=== PATIENT | female | born 1995 | race Caucasian/White ===

== ENCOUNTER → 2019-05-20 14:59 | Emergency (ER) | payer SELFPAY ==
[2019-05-20 15:01] VITALS: BP 114/74; PULSE 83; RESP 17; TEMP 36.6; O2SAT 99; BMI 25.7
--- NOTE | 2019-05-20 15:20 | ED.RN ---
pt left without being seen
== END ==
DX: R69 Illness, unspecified (principal); Z53.21 Procedure and treatment not carried out due to patient leaving prior to being seen by health care provider

== ENCOUNTER 2023-07-17 06:10 | Day surgery (SDC) | payer MEDICARE, SELFPAY ==
[2023-07-17] VITALS (11 sets, daily range): BP systolic 96–121; BP diastolic 61–82; PULSE 60–87; RESP 14–18; TEMP 36.1–36.4; O2SAT 95–100; BMI 28.8
[2023-07-17] MEDS: Lactated Ringers 1,000 ML 15 ML IV (07:02)
[2023-07-17 07:10] LABS: Internal QC Validated? YES +Cl - CLEAR BKGD; Pregnancy, Urine Negative Negative
[2023-07-17] MEDS: Ciprofloxacin 400 MG/200 ML BAG 200 MG IV (07:53)
--- NOTE | 2023-07-17 07:57 | DCINST_ITS ---
Discharge Instructions Diet Discharge Diet: No restrictions Activity Discharge Activity: Return to Normal Activity Dressing / Incision Call your doctor if you observe: Fever of 101 or Higher, Inability to urinate and Inability to have a bowel movement Follow Up Care Please Follow Up With: Antoinette Pettit MD When: The office will call the patient to make follow-up arrangements. Test Results: Test results from this visit will be discussed in further detail at your follow- up appointment, if applicable. Discharge Plan Admission Attending Provider: Antoinette Pettit Primary Care Provider: Tavo Olivera Discharge Orders/Prescriptions Prescriptions: New sulfamethoxazole-trimethoprim [sulfamethoxazole-trimethoprim] 800-160 mg tablet 1 tab PO BID 3 Days Qty: 6 0RF oxycodone-acetaminophen [Percocet] 5-325 mg tablet 1 tab PO Q8H PRN (Reason: pain) 3 Days Qty: 10 0RF Continued vit,[id number] 1 TABLET tablet 1 tab PO DAILY Gemtesa 75 mg tablet 75 mg PO DAILY ferrous sulfate [FeroSul] 325 mg (65 mg iron) tablet 325 mg PO DAILY Patient Comments: take 1 tablet by mouth twice a day albuterol 90 mcg/actuation aerosol 90 mcg inhalation PRN PRN (Reason: shortness of breath or wheezing) ibuprofen [Advil] 200 mg tablet 200 mg PO Q8H PRN (Reason: pain) Referrals / Follow Up: Tavo Olivera DO [Primary Care Provider] - Disposition Disposition (needs filled in before D/C Order can be placed): Home, Self Care
--- NOTE | 2023-07-17 07:58 | PCM.OPRPT ---
Report of Operation Date of Procedure: 07/17/23 Pre-Operative Diagnosis: Interstitial cystitis, urinary urgency and frequency, pelvic pain Post-Operative Diagnosis: Same Surgery/Procedure Performed:: Cystoscopy, hydrodistention, pelvic exam anesthesia Description of Surgical Findings:: Positive glomerulations, terminal hematuria, capacity 200 cc without distention, followed by 300 cc after distention. No Hunner's ulcerations. Surgeon: Antoinette Pettit Type of Anesthesia: MAC Description of Procedure: The patient is a 28-year-old female with a history of interstitial cystitis. Her symptoms have been uncontrolled and she is voiding over 50 times a day with significant bladder pain. The decision was made to proceed with evaluation under anesthesia. Informed consent was obtained. The patient was taken to the operating room and placed on the operating room table. Anesthesia monitored the head, neck, airway, IV access and vital signs throughout the case. Once anesthesia was appropriately administered, the patient was placed into dorsolithotomy position was prepped and draped in usual sterile fashion. The cystoscope was inserted through the urethra and direct visualization into the urinary bladder. The bladder mucosa was visualized in its entirety revealing no evidence of Hunner ulcerations, mass or erythema. Her bladder was then filled to capacity and allowed to sit for 2 minutes. On emptying, her capacity was measured at 200 cc and there was terminal hematuria identified. On reentry into the urinary bladder there were multiple diffuse glomerulations identified. Her bladder was once again filled to capacity and allowed to sit for 2 minutes. On emptying, it was measured at 300 cc capacity. The patient's bladder was then emptied and the cystoscope was removed. The pelvic floor was evaluated with examination and finding no evidence of trigger points. The patient was then awakened and taken to the recovery room in good condition. There were no complications during this procedure. Grafts/Implants Used: None Complications None Admit VTE Documentation VTE Present on Admission: Yes VTE Mechan Device Prophylaxis: SCD's VTE Pharm Prophylaxis ordered?: No Reason prophylaxis not ordered:: Treatment Not Indicated
== END 2023-07-17 09:59 | disposition home or self-care (01) ==
LOC: SDC 07:44 → AC 07:44
PROVIDERS: Anesthesiology; PCP Family Medicine; Referring Provider Urology; Visit Provider Urology
PROC: 0TBB8ZX Excision of Bladder, Via Natural or Artificial Opening Endoscopic, Diagnostic (ICD-10-PCS; CPT 52260; principal; 2023-07-17 07:20)
DX: N30.10 Interstitial cystitis (chronic) without hematuria (principal); R39.15 Urgency of urination; R35.0 Frequency of micturition; R10.2 Pelvic and perineal pain; J45.909 Unspecified asthma, uncomplicated; D64.9 Anemia, unspecified; Z79.51 Long term (current) use of inhaled steroids
CPT/HCPCS: 52260; 57410; 00910; J7120; 81025; J0744; J2405

== ENCOUNTER 2024-01-08 05:59 | Day surgery (SDC) | payer MEDICARE, SELFPAY ==
[2024-01-08] VITALS (8 sets, daily range): BP systolic 97–110; BP diastolic 56–74; PULSE 61–72; RESP 16; TEMP 36.2–36.6; O2SAT 94–99; BMI 27.7
[2024-01-08 06:21] LABS: Internal QC Validated? YES +Cl - CLEAR BKGD; Pregnancy, Urine Negative Negative
[2024-01-08] MEDS: Lactated Ringers 1,000 ML 15 ML IV (06:36)
[2024-01-08] MEDS: Ciprofloxacin 400 MG/200 ML BAG 200 MG IV (06:37)
--- NOTE | 2024-01-08 07:12 | PCM.PRE.AN2 ---
ASA Classification* ASA Classification ASA Classification: 2 Assessment & Plan Anesthesia* Anesthesia Assessment Anesthesia Assessment: Discussed sedation and/or anesthesia options, risks, benefits, and alternatives with patient/parents/legal guardian/POA. Questions invited. The patient/parents/legal guardian/POA seems to understand and agrees to proceed with anesthesia plan. Reviewed the physical assessment, medical history, allergy history and patient home medications list prior to surgery/procedure/anesthetic and documented any changes. Performed airway and anesthesia risk assessments. Anesthesia Type Anesthesia Type: MAC (see written pre anesthesia record for full assessment) Anesthesia Focused Assessment* Temperature: 97.8 F Pulse Rate: 72 Blood Pressure: 110/74 Respiratory Rate: 16 Pulse Ox: 99 Airway Assessment Mouth opens: >3 cm Mallampati Score: II Focused Labs Anesthesia Preop lab: CBC CHEMISTRY COAG Urine Test Negative Negative 01/08/24 06:15 Pre-Assessment Diagnosis/Proposed Procedure Planned Operative Procedure(s): CYSTO BOTOX INJECTION Anesthesia History Anesthesia History - independent crop consultant: Anesthesia History - independent crop consultant Hx Hospitalization No 01/07/24 08:28 Any Problems With Anesthesia No 01/07/24 08:28 Cholinesterase deficiency No 01/07/24 08:28 You/Your Family Experience No 01/07/24 08:28 fever (hyperthermia) with Relationship Recent Exposure to Contagious No 01/08/24 06:27 Disease Does patient have nerve No 01/07/24 08:28 stimulator Patient instructed to have device shut off --Does patient have Pacemaker No 01/08/24 06:27 or ICD? When Was Last Pacemaker Check QUESTION #4 FULL TEXT: You/Your Family Experience fever (hyperthermia) with Anesthesia Last Oral Intake Last Oral intake: Last Oral Intake NPO since 21:30 01/08/24 06:27 Meds taken in AM with sips of No 01/08/24 06:27 water? Meds patient instructed to take am of surgery PONV PONV - independent crop consultant: PONV - independent crop consultant Female Yes 01/07/24 08:28 HX of Motion Sickness No 01/07/24 08:28 HX of N/V After Surgery No 01/07/24 08:28 Non-Smoker Yes 01/07/24 08:28 Duration of Surgery greater No 01/07/24 08:28 than 60 minutes Number of Risk Factors 2 01/07/24 08:28 PONV Score Moderate Risk 01/07/24 08:28 Height & Weight Height & Weight: Anesthesia: Height & Weight Height 5 ft 3 in 01/08/24 06:27 Weight: 71 kg 01/08/24 06:27 Body Mass Index (BMI) 27.7 01/08/24 06:27 Respiratory Assessment Respiratory Assessment - independent crop consultant: Respiratory Tract Infection Hx - independent crop consultant Hx Respiratory Tract Infection No 01/07/24 08:28 STOP Sleep Apnea STOP Sleep Apnea - independent crop consultant: STOP Sleep Apnea - independent crop consultant Hx Hypertension No 01/07/24 08:28 Hx Sleep Apnea No 01/07/24 08:28 CPAP BIPAP Do you snore loudly (louder No 01/07/24 08:28 than talking or can be heard Do you often feel tired/ Yes 01/07/24 08:28 fatigued/ sleepy during daytime? Has anyone observed you stop No 01/07/24 08:28 breathing during sleep? STOP Results Negative 01/07/24 08:28 QUESTION #5 FULL TEXT : Do you snore loudly (louder than talking or can be heard through closed doors)? Tobacco Use History Tobacco Use History - independent crop consultant: Tobacco Use History - independent crop consultant Tobacco Use Smoking Status Never smoker 01/07/24 08:28 Hx Tobacco Use No 01/07/24 08:28 Years Smoking Packs Smoked per Day Smoking Cessation Date was within the last 15 years Hx Smoking Cessation Date Hx Smoking Cessation Counseling Hematologic Medial History Hematologic Hx - independent crop consultant: Hematologic Medical Hx - flue lining dipper Hx of Blood Transfusion No 01/07/24 08:28 Hx of Transfusion in last 3 No 01/07/24 08:28 Months Date of Last Transfusion (if within last 3 months) Ever experience any problems No 01/07/24 08:28 with transfusion(s)? Specify any problems Hx of Preganancy in last 3 No 01/07/24 08:28 Months Nurse Filling Out Transfusion DSCHRIBER 01/07/24 08:28 & Questions: Date: 01/07/24 01/07/24 08:28 Time: 08:29 01/07/24 08:28 Patient unable to answer at this time (ie. confused, unrespo /Reproduction History /Reproductive History - independent crop consultant: /Reproductive Hx- independent crop consultant Hx Now Gestational Age (in weeks): EDC: Hx Hx Para Hx Section SAB No 01/07/24 08:28 Active Medications Active Medications: Current Medications Generic Name Dose Route Start Last Admin Trade Name Freq PRN Reason Stop Dose Admin Botulinum Toxin Type A 100 units 01/08/24 07:30 Botulinum Toxin A 100 Units Vial IJ 01/08/24 07:31 X1 ONE Ciprofloxacin 400 mg in 200 mls @ 200 mls/hr 01/08/24 07:30 01/08/24 06:37 Cipro IV 01/08/24 08:29 200 mls/hr PREOP ONE Administration Lactated Ringer's 1,000 mls @ 15 mls/hr 01/08/24 06:15 01/08/24 06:36 IV 15 mls/hr .Q48H SUNIL Administration PFSH Medical History Interstitial cystitis Wears glasses Depression Anxiety Anemia Restless legs Asthma Non-smoker Home Medications ?Medication ?Instructions ?Recorded ?Last Taken ?Type albuterol 90 mcg/actuation aerosol 90 mcg inhalation PRN PRN 07/16/23 Unknown History inhaler shortness of breath or wheezing ferrous sulfate 325 mg (65 mg 325 mg PO DAILY 07/16/23 01/07/24 History iron) tablet (FeroSul) ibuprofen 200 mg tablet (Advil) 200 mg PO Q8H PRN pain 07/17/23 07/16/23 20:00 History Allergy/AdvReac Type Severity Reaction Status Date / Time Penicillins Allergy Intermediate Angioedema Verified 01/07/24 08:26 Surgical History History of cystoscopy Hx of wisdom tooth extraction Hx laparoscopic cholecystectomy Hx of laparoscopy History of dilation and curettage History of Social History Smoking Status: Never smoker Review of Systems (Anesthesia) ROS Narrative System reviewed and no additional complaints, except as documented.
[2024-01-08] MEDS: 0.9% Normal Saline (Pres. free 10 ML Vial (07:55)
[2024-01-08] MEDS: Botulinum Toxin A 100 Units Vial IJ (07:55)
--- NOTE | 2024-01-08 08:03 | DCINST_ITS ---
Discharge Instructions Diet Discharge Diet: No restrictions Activity Discharge Activity: Return to Normal Activity Dressing / Incision Call your doctor if you observe: Fever of 101 or Higher, Inability to urinate and Inability to have a bowel movement Additional Dressing/Incision Instructions:: Call if the urine is the consistency of tomato juice or passing multiple blood clots in the urine Follow Up Care Please Follow Up With: Antoinette Pettit MD When: The office will call to set up follow-up next week. Test Results: Test results from this visit will be discussed in further detail at your follow- up appointment, if applicable. Discharge Plan Admission Attending Provider: Antoinette Pettit Primary Care Provider: Tavo Olivera Instructions Print Language: Dominican Discharge Orders/Prescriptions Prescriptions: New sulfamethoxazole-trimethoprim 800-160 mg tablet 1 tab PO BID 3 Days Qty: 6 0RF Continued ferrous sulfate [FeroSul] 325 mg (65 mg iron) tablet 325 mg PO DAILY Patient Comments: take 1 tablet by mouth twice a day albuterol 90 mcg/actuation aerosol 90 mcg inhalation PRN PRN (Reason: shortness of breath or wheezing) ibuprofen [Advil] 200 mg tablet 200 mg PO Q8H PRN (Reason: pain) Other Ambulatory Orders: ,Urine (Routine) Timeframe: 20240108 Facility: [facility] - Location: Laboratory Ordered By: Dr. Christopher Jacobsen Referrals / Follow Up: Tavo Olivera DO [Primary Care Provider] - Disposition Disposition (needs filled in before D/C Order can be placed): Home, Self Care
--- NOTE | 2024-01-08 08:05 | PCM.OPRPT ---
Report of Operation Date of Procedure: 01/08/24 Pre-Operative Diagnosis: Overactive bladder Post-Operative Diagnosis: Same Surgery/Procedure Performed:: Cystoscopy with injection of Botox 100 units Surgeon: Antoinette Pettit Type of Anesthesia: MAC Specimen's removed: None Estimated Blood Loss (mL): <5cc Description of Procedure: The patient is a 28-year-old female with significant urgency and frequency of urination. She underwent trials of medications along with urodynamics testing in office cystoscopy. She is elected to proceed with Botox 100 unit injections at this time. Informed consent was obtained. The patient was taken to the operating room and placed on the operating room table. Anesthesia monitored the head, neck, airway, IV access and vital signs throughout the case. Once anesthesia was appropriately administered, she was placed into dorsolithotomy position was prepped and draped in usual sterile fashion. The cystoscope was inserted through the urethra under direct visualization into the urinary bladder which displayed significant injection. At this time 100 units of Botox mixed in 10 cc of injectable saline were injected and 0.5 cc increments throughout the urinary bladder in systematic fashion. At the conclusion of the injections, 1 last flush of 0.5 cc of normal saline was injected. The patient's bladder was then emptied and the cystoscope was removed. She was awakened and taken to the recovery room in good condition. There were no complications during this procedure. Grafts/Implants Used: None Complications None Admit VTE Documentation VTE Present on Admission: Yes VTE Mechan Device Prophylaxis: SCD's VTE Pharm Prophylaxis ordered?: No Reason prophylaxis not ordered:: Treatment Not Indicated
--- NOTE | 2024-01-08 08:07 | PCM.POST.ANE ---
Anesthesia: Postop Eval I Current Vital Signs Temperature: 97.3 F Pulse Rate: 63 Blood Pressure: 97/56 Respiratory Rate: 16 Pulse Ox: 94 Oxygen Delivery Method: Room Air Assessment Airway patent: Yes Spontaneous unlabored respirations: Yes Mental status: Awake nausea: No Vomiting: No Anesthesia Complication: No Fluid Hydration Crystalloid volume administer (ml): 400 Total IV fluid infused: 400 Progress Note Anesthesia document: Postop Eval 1 completed: Yes
--- NOTE | 2024-01-08 08:20 | POSTOPAN2_ITS ---
Anesthesia Postop Eval I Sum Postop Eval Completion status Anesthesia document: Postop Eval 1 completed: Yes Anesthesia Postop Eval I Summary Anesthesia Postop Eval I Summary: Anesthesia Postop Eval I: Assessment Summary Airway patent Yes 01/08/24 08:17 MOTOR [email or web address] Spontaneous unlabored Yes 01/08/24 08:17 MOTOR COACH [email or web address].[email or web address] respirations Mental status Awake 01/08/24 08:17 MOTOR [email or web address].[email or web address] nausea No 01/08/24 08:17 MOTOR [email or web address] DRIVER.[email or web address] Vomiting No 01/08/24 08:17 MOTOR [email or web address].[email or web address] Anesthesia Postop Eval I: Fluid Summary Crystalloid volume administer 400 01/08/24 08:17 MOTOR [email or web address].[email or web address] (ml) Colloids volume administered ( ml) Blood Product volume administered (ml) Total IV fluid infused 400 01/08/24 08:17 MOTOR COACH [email or web address].[email or web address] Anesthesia Postop Eval I: Summary Notes Anesthesia Complication No 01/08/24 08:17 MOTOR [email or web address].[email or web address] Anesthesia Complication Comment: Post-operative progress note Anesthesia: Postop Eval II Evaluation Mental status: Awake Pain Level: 0 nausea: No Vomiting: No
--- NOTE | 2024-01-08 08:20 | PCM.POSTANE2 ---
Anesthesia Postop Eval I Sum Postop Eval Completion status Anesthesia document: Postop Eval 1 completed: Yes Anesthesia Postop Eval I Summary Anesthesia Postop Eval I Summary: Anesthesia Postop Eval I: Assessment Summary Airway patent Yes 01/08/24 08:17 ORAL [email or web address] Spontaneous unlabored Yes 01/08/24 08:17 ORAL [email or web address] respirations Mental status Awake 01/08/24 08:17 ORAL [email or web address] nausea No 01/08/24 08:17 ORAL [email or web address].[email or web address] Vomiting No 01/08/24 08:17 ORAL [email or web address].[email or web address] Anesthesia Postop Eval I: Fluid Summary Crystalloid volume administer 400 01/08/24 08:17 ORAL [email or web address] (ml) Colloids volume administered ( ml) Blood Product volume administered (ml) Total IV fluid infused 400 01/08/24 08:17 ORAL [email or web address].[email or web address] Anesthesia Postop Eval I: Summary Notes Anesthesia Complication No 01/08/24 08:17 ORAL [email or web address] Anesthesia Complication Comment: Post-operative progress note Anesthesia: Postop Eval II Evaluation Mental status: Awake Pain Level: 0 nausea: No Vomiting: No
== END 2024-01-08 08:51 | disposition home or self-care (01) ==
LOC: SDC 06:00 → AC 06:01
PROVIDERS: Anesthesiology; PCP Family Medicine; Referring Provider Urology; Visit Provider Urology
PROC: 3E0K8GC Introduction of Other Therapeutic Substance into Genitourinary Tract, Via Natural or Artificial Opening Endoscopic (ICD-10-PCS; CPT 52287; principal; 2024-01-08 07:20)
DX: N32.81 Overactive bladder (principal); N39.41 Urge incontinence; R35.0 Frequency of micturition; J45.909 Unspecified asthma, uncomplicated; Z79.51 Long term (current) use of inhaled steroids
CPT/HCPCS: 52287; 00910; 81025; J7120; J0585; J0744; J2405; J3490

== ENCOUNTER 2024-02-20 15:00 | Outpatient (RCR) | payer MEDICARE, SELFPAY | END 2024-02-20 19:00 | disposition home or self-care (01) | LOC: PT 15:00 | PROVIDERS: PCP Family Medicine; Referring Provider Urology; Visit Provider Urology | DX: R32 Unspecified urinary incontinence (principal); R35.0 Frequency of micturition | CPT/HCPCS: 97162 ==

== ENCOUNTER 2024-03-11 09:41 | Day surgery (SDC) | payer MEDICARE, SELFPAY ==
[2024-03-11] VITALS (9 sets, daily range): BP systolic 103–113; BP diastolic 56–72; PULSE 60–71; RESP 16–18; TEMP 36.1–36.6; O2SAT 97–100; BMI 27.3
[2024-03-11 10:16] LABS: Internal QC Validated? YES +Cl - CLEAR BKGD; Pregnancy, Urine Negative Negative
[2024-03-11] MEDS: 0.9% Normal Saline (500mL Bag) 500 ML 15 ML IV (10:43)
[2024-03-11] MEDS: Vancomycin IV 1,000 MG/200 ML BAG 200 MG IV (10:43)
--- NOTE | 2024-03-11 10:55 | PCM.HP.STD ---
HPI - General HPI Narrative SELENE RAMIREZ, is a 28 F who presents for stage I trial of Axonics management for her urgency and frequency. Informed consent has been obtained. PFSH Medical History Frequency of micturition Urgency of micturition Interstitial cystitis Wears glasses Depression Anxiety Anemia Restless legs Asthma Non-smoker Home Medications ?Medication ?Instructions ?Recorded ?Last Taken ?Type albuterol 90 mcg/actuation aerosol 90 mcg inhalation PRN PRN 07/16/23 Unknown History inhaler shortness of breath or wheezing ibuprofen 200 mg tablet (Advil) 200 mg PO Q8H PRN pain 07/17/23 07/16/23 20:00 History phenazopyridine 95 mg tablet 95 mg PO QHS 03/05/24 Unknown History (URO-PAIN) Allergy/AdvReac Type Severity Reaction Status Date / Time famotidine Allergy Severe Itching Verified 03/11/24 10:22 Penicillins Allergy Intermediate Angioedema Verified 03/11/24 10:22 Surgical History Hx of surgical procedure Hx of cystoscopy History of cystoscopy Hx of wisdom tooth extraction Hx laparoscopic cholecystectomy Hx of laparoscopy History of dilation and curettage History of Social History Smoking Status: Never smoker ROS Constitutional Constitutional: Reports systems reviewed and no addt'l complaints, except as documented; Denies chills, fatigue, fever(s) or weakness Eyes Eyes: Reports systems reviewed and no addt'l complaints, except as documented ENT HEENT: Reports systems reviewed and no addt'l complaints, except as documented Cardiovascular Cardiovascular: Reports systems reviewed and no addt'l complaints, except as documented; Denies abdominal pain, chest pain, diaphoresis or dyspnea Respiratory/Chest Respiratory/Chest: Denies chest congestion or dyspnea Gastrointestinal Gastrointestinal: Denies abdominal pain, change in bowel habits, nausea or vomiting Genitourinary Genitourinary: Reports urinary frequency and urinary urgency Musculoskeletal Musculoskeletal: Reports systems reviewed and no addt'l complaints, except as documented Integumentary Integumentary: Reports systems reviewed and no addt'l complaints, except as documented Neurologic Neurologic: Reports systems reviewed and no addt'l complaints, except as documented Psychiatric Psychiatric: Reports systems reviewed and no addt'l complaints, except as documented Endocrine Endocrinology: Reports systems reviewed and no addt'l complaints, except as documented Hematologic/Lymphatic Hematologic/Lymphatic: Reports systems reviewed and no addt'l complaints, except as documented Allergic/Immunologic Allergic/Immunologic: Reports systems reviewed and no addt'l complaints, except as documented Vital Signs Vital Signs Vital Signs: 03/11/24 10:24 03/11/24 10:24 Temperature 98 F Temperature Source Temporal Pulse Rate 65 Respiratory Rate 16 Respiratory Pattern Normal Blood Pressure 113/72 Blood Pressure Mean 85 Blood Pressure Source Monitor Blood Pressure Position Semi-Fowlers Blood Pressure Location Left Arm Weight Weight: 70.2 kg Body Mass Index (BMI) 27.3 Physical Exam Const alert, oriented x3 and no apparent distress General Appearance: cooperative, comfortable and well kempt HEENT normocephalic, head/scalp atraumatic, hearing grossly normal bilaterally, external ears normal, external nose normal and moist oral mucous membranes Eyes General Eye: normal appearance of both eyes Neck supple General: normal visual inspection and trachea midline Lymph Lymphatic: no lymphedema noted Chest inspection of chest normal Resp normal respiratory effort, normal air movement and no retractions Cardio regular rate GI soft to palpation, non-tender and non-distended no CVA tenderness and external exam normal Back/Spine no CVA tenderness Extremity normal to inspection Skin no rashes or lesions noted, no wounds, no jaundice, no petechiae and no mottling Neuro oriented x3 and CN's II-XII intact bilaterally Psych mental status grossly normal and thought process normal Results Lab / Micro Data Labs: Laboratory Results - last 24 hr 03/11/24 10:05: Urine Test Negative Assessment & Plan Assessment/Plan (1) Urgency of micturition: (2) Frequency of micturition: PLAN: Plan Proceed with stage I Axonics trial as scheduled
--- NOTE | 2024-03-11 10:59 | DCINST_ITS ---
Discharge Instructions Diet Discharge Diet: No restrictions Activity Discharge Activity: May Not Shower May resume sexual activity in: 4 weeks Dressing / Incision Call your doctor if your incision/area has: Continuous Slow Oozing, Sudden Increased Bleeding, Increased Pain/ Swelling and Foul Smelling Discharge Call your doctor if you observe: Fever of 101 or Higher, Inability to urinate and Inability to have a bowel movement Suture Line Care: Avoid Pulling/Pushing and Avoid Pinching/Bending Change Dressing in: do not change dressing Remove Dressing in: do not remove dressing Cleanse incision/area with: Keep Dressing Clean & Dry Additional Dressing/Incision Instructions:: No exercise or strenuous activity Follow Up Care Please Follow Up With: Antoinette Pettit MD When: Next week with voiding diary Test Results: Test results from this visit will be discussed in further detail at your follow- up appointment, if applicable. Discharge Plan Admission Attending Provider: Antoinette Pettit Primary Care Provider: Tavo Olivera Instructions Print Language: Turkish Discharge Orders/Prescriptions Prescriptions: New sulfamethoxazole-trimethoprim 800-160 mg tablet 1 tab PO BID 3 Days Qty: 6 0RF oxycodone-acetaminophen [Percocet] 5-325 mg tablet 1 tab PO Q8H PRN (Reason: pain) 3 Days Qty: 10 0RF Continued albuterol 90 mcg/actuation aerosol 90 mcg inhalation PRN PRN (Reason: shortness of breath or wheezing) ibuprofen [Advil] 200 mg tablet 200 mg PO Q8H PRN (Reason: pain) phenazopyridine [URO-PAIN] 95 mg tablet 95 mg PO QHS Referrals / Follow Up: Tavo Olivera DO [Primary Care Provider] - Disposition Disposition (needs filled in before D/C Order can be placed): Home, Self Care
--- NOTE | 2024-03-11 11:03 | PCM.PRE.AN2 ---
ASA Classification* ASA Classification ASA Classification: 2 Assessment & Plan Anesthesia* Anesthesia Assessment Anesthesia Assessment: Discussed sedation and/or anesthesia options, risks, benefits, and alternatives with patient/parents/legal guardian/POA. Questions invited. The patient/parents/legal guardian/POA seems to understand and agrees to proceed with anesthesia plan. Reviewed the physical assessment, medical history, allergy history and patient home medications list prior to surgery/procedure/anesthetic and documented any changes. Performed airway and anesthesia risk assessments. 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 When Was Last Pacemaker Check QUESTION #4 FULL TEXT: You/Your Family Experience fever (hyperthermia) with Anesthesia Last Oral Intake Last Oral intake: Last Oral Intake NPO since 23:00 03/11/24 10:24 Meds taken in AM with sips of No 03/11/24 10:24 water? Meds patient instructed to take am of surgery PONV PONV - mincing machine operator: PONV - mincing machine operator Female Yes 03/05/24 10:10 HX of Motion Sickness No 03/05/24 10:10 HX of N/V After Surgery No 03/05/24 10:10 Non-Smoker Yes 03/05/24 10:10 Duration of Surgery greater No 03/05/24 10:10 than 60 minutes Number of Risk Factors 2 03/05/24 10:10 PONV Score Moderate Risk 03/05/24 10:10 Height & Weight Height & Weight: Anesthesia: Height & Weight Height 5 ft 3 in 03/11/24 10:24 Weight: 70.2 kg 03/11/24 10:24 Body Mass Index (BMI) 27.3 03/11/24 10:24 Respiratory Assessment Respiratory Assessment - mincing machine operator: Respiratory Tract Infection Hx - mincing machine operator Hx Respiratory Tract Infection No 03/05/24 10:27 STOP Sleep Apnea STOP Sleep Apnea - mincing machine operator: STOP Sleep Apnea - mincing machine operator Hx Hypertension No 03/05/24 10:27 Hx Sleep Apnea No 03/05/24 10:27 CPAP BIPAP Do you snore loudly (louder No 03/05/24 10:10 than talking or can be heard Do you often feel tired/ No 03/05/24 10:10 fatigued/ sleepy during daytime? Has anyone observed you stop No 03/05/24 10:10 breathing during sleep? STOP Results Negative 03/05/24 10:10 QUESTION #5 FULL TEXT : Do you snore loudly (louder than talking or can be heard through closed doors)? 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 Specify any problems Hx of Preganancy in last 3 No 03/05/24 10:10 Months Nurse Filling Out Transfusion VCHRISTIN 03/05/24 10:10 & Questions: Date: 03/05/24 03/05/24 10:10 Time: 10:11 03/05/24 10:10 Patient unable to answer at this time (ie. confused, unrespo /Reproduction History /Reproductive History - mincing machine operator: /Reproductive Hx- mincing machine operator Hx Now Gestational Age (in weeks): EDC: Hx Hx Para Hx Section SAB No 03/05/24 10:27 Active Medications Active Medications: Current Medications Generic Name Dose Route Start Last Admin Trade Name Freq PRN Reason Stop Dose Admin Sodium Chloride 500 mls @ 0 mls/hr 03/11/24 10:15 03/11/24 10:43 IV 15 mls/hr .Q0M SUNIL Administration KVO PFSH Medical History Frequency of micturition Urgency of micturition Interstitial cystitis Wears glasses Depression Anxiety Anemia Restless legs Asthma Non-smoker Home Medications ?Medication ?Instructions ?Recorded ?Last Taken ?Type albuterol 90 mcg/actuation aerosol 90 mcg inhalation PRN PRN 07/16/23 Unknown History inhaler shortness of breath or wheezing ibuprofen 200 mg tablet (Advil) 200 mg PO Q8H PRN pain 07/17/23 07/16/23 20:00 History phenazopyridine 95 mg tablet 95 mg PO QHS 03/05/24 Unknown History (URO-PAIN) oxycodone-acetaminophen 5 mg-325 1 tab PO Q8H PRN pain 3 days #10 03/11/24 Unknown Rx mg tablet (Percocet) tabs sulfamethoxazole 800 1 tab PO BID 3 days #6 TABLETS 03/11/24 Unknown Rx mg-trimethoprim 160 mg tablet Allergy/AdvReac Type Severity Reaction Status Date / Time famotidine Allergy Severe Itching Verified 03/11/24 10:22 Penicillins Allergy Intermediate Angioedema Verified 03/11/24 10:22 Surgical History Hx of surgical procedure Hx of cystoscopy History of cystoscopy Hx of wisdom tooth extraction Hx laparoscopic cholecystectomy Hx of laparoscopy History of dilation and curettage History of Social History Smoking Status: Never smoker Review of Systems (Anesthesia) ROS Narrative System reviewed and no additional complaints, except as documented.
--- NOTE | 2024-03-11 11:18 | RAD_ITS ---
STUDY: X-RAY sacrum and coccyx AP and lateral REASON FOR EXAM: Female, 28 years old. AXONICS STAGE 1 TECHNIQUE: 2 view(s) sacrum and coccyx were obtained. COMPARISON: No relevant prior comparison study available FINDINGS: 2 views of the pelvis were obtained intraoperatively on a C-arm for treatment. Images were obtained for documentation only. Fluoroscopy time: 15 seconds. Number of fluoroscopic images: 2. Radiation dose: 11.47 mGy RAD/Pelvis 1 or 2 Views IMPRESSION: Intraprocedural exam as described above. Electronically Signed: Francois Cruz MD at 14:06 EDT ,
[2024-03-11] MEDS: Lidocaine 1% /Epi 1:100 (20ml) 20 ML Vial (11:26)
--- NOTE | 2024-03-11 12:12 | OP.PCM_ITS ---
Operative Report (Standard) Operative Information Surgery/Procedure Performed: Axonics stage I trial Surgeon: Antoinette Pettit Date of Procedure: 03/11/24 Procedure Start Time: 11:26 Procedure Stop Time: 12:04 Pre-Operative Diagnosis: Urinary urgency and frequency Post-Operative Diagnosis: Same Select all DRAINS/GRAFTS/IMPLANTS that apply: Implanted device Implanted device details: Axonics lead and lead extension Type of Anesthesia: MAC Estimated Blood Loss: 5 cc Specimen collected: No Description of surgery: The patient is a 28-year-old female with severe urgency and frequency of urination who has failed conservative management and now presents for Axonics stage I. Informed consent was obtained. She was taken to the operating room and placed in a prone position on the operating room table. She was appropriately padded and secured to the table. Anesthesia monitored the head, neck, airway, IV access and vital signs throughout the case. Once anesthesia was appropriately ministered, she was prepped and draped in usual sterile fashion. Using fluoroscopic evaluation, her sacral anatomy was outlined on her skin. The area overlying the insertion site for the S3 foramen needle was infiltrated with lidocaine with epinephrine on her right side. The needle was then passed through the skin and through the S3 foramen as visualized and confirmed on fluoroscopy. With stimulation she had good kar response as well as toe flexion. The obturator of the needle was removed and a guidewire was passed. The dilating device was then passed into position and the obturator was removed. The lead was then passed into its appropriate position. All 4 leads were tested with good response of kar and toe flexion without ankle rotation. The tines were then deployed and the sheath was removed. She did have oozing identified at the lead insertion site at that time. Pressure was held and the oozing did stop. The pocket site was selected and infiltrated with local anesthetic. An incision was made with a knife and the area was cauterized for hemostatic control. The lead was tunneled from the insertion site to the pocket site with the tunneling device. Lead was then cleaned and inserted into the lead extension which was then tunneled to the contralateral side without difficulty. It was then secured to the skin using a suture and Steri-Strips. The skin incisions were closed using 3-0 interrupted Vicryl followed by 4-0 Mo nocryl subcuticular closure. Steri-Strips were placed on the lead insertion site and Dermabond was placed on the pocket site. The lead extension was then connected to the battery. A drain sponge was placed on the patient's skin. The lead extension was coiled around the battery and an OpSite was placed over all of this. Cloth tape was placed over top of the OpSite. The patient was then awakened and taken to the recovery room in good condition. There were no complications during this procedure. Surgical Findings: Good response on all 4 leads. The lead was inserted on the patient's right side. The pocket site is on her right side. Agency Sales Management Assistant interceptor operator: No Complications Complications: No Admit VTE Documentation VTE Present on Admission: No VTE Mechan Device Prophylaxis: None VTE Pharm Prophylaxis ordered?: No Reason prophylaxis not ordered: Treatment Not Indicated
--- NOTE | 2024-03-11 12:14 | PCM.POST.ANE ---
Anesthesia: Postop Eval I Current Vital Signs Temperature: 97.7 F Pulse Rate: 71 Blood Pressure: 105/56 Respiratory Rate: 16 Pulse Ox: 99 Oxygen Delivery Method: Room Air Assessment Airway patent: Yes Spontaneous unlabored respirations: Yes Mental status: Awake nausea: No Vomiting: No Anesthesia Complication: No Fluid Hydration Crystalloid volume administer (ml): 200 Total IV fluid infused: 200 Progress Note Anesthesia document: Postop Eval 1 completed: Yes
--- NOTE | 2024-03-11 12:20 | POSTOPAN2_ITS ---
Anesthesia Postop Eval I Sum Postop Eval Completion status Anesthesia document: Postop Eval 1 completed: Yes Anesthesia Postop Eval I Summary Anesthesia Postop Eval I Summary: Anesthesia Postop Eval I: Assessment Summary Airway patent Yes 03/11/24 12:15 DRUG ABUSE [email or web address] Spontaneous unlabored Yes 03/11/24 12:15 DRUG ABUSE COUNSELOR.JDEF respirations Mental status Awake 03/11/24 12:15 DRUG ABUSE COUNSELOR.JDEF nausea No 03/11/24 12:15 DRUG ABUSE COUNSELOR.JDEF Vomiting No 03/11/24 12:15 DRUG ABUSE COUNSELOR.JDEF Anesthesia Postop Eval I: Fluid Summary Crystalloid volume administer 200 03/11/24 12:15 DRUG ABUSE COUNSELOR.JDEF (ml) Colloids volume administered ( ml) Blood Product volume administered (ml) Total IV fluid infused 200 03/11/24 12:15 DRUG ABUSE COUNSELOR.JDEF Anesthesia Postop Eval I: Summary Notes Anesthesia Complication No 03/11/24 12:15 DRUG ABUSE COUNSELOR.JDEF Anesthesia Complication Comment: Post-operative progress note Anesthesia: Postop Eval II Evaluation Mental status: Awake Pain Level: 0 nausea: No Vomiting: No
--- NOTE | 2024-03-11 12:20 | PCM.POSTANE2 ---
Anesthesia Postop Eval I Sum Postop Eval Completion status Anesthesia document: Postop Eval 1 completed: Yes Anesthesia Postop Eval I Summary Anesthesia Postop Eval I Summary: Anesthesia Postop Eval I: Assessment Summary Airway patent Yes 03/11/24 12:15 ASSOCIATE PROFESSOR OF MANAGEMENT.[email or web address] Spontaneous unlabored Yes 03/11/24 12:15 ASSOCIATE PROFESSOR OF MANAGEMENT.JDEF respirations Mental status Awake 03/11/24 12:15 ASSOCIATE PROFESSOR OF MANAGEMENT.JDEF nausea No 03/11/24 12:15 ASSOCIATE PROFESSOR OF MANAGEMENT.JDEF Vomiting No 03/11/24 12:15 ASSOCIATE PROFESSOR OF MANAGEMENT.JDEF Anesthesia Postop Eval I: Fluid Summary Crystalloid volume administer 200 03/11/24 12:15 ASSOCIATE PROFESSOR OF MANAGEMENT.JDEF (ml) Colloids volume administered ( ml) Blood Product volume administered (ml) Total IV fluid infused 200 03/11/24 12:15 ASSOCIATE PROFESSOR OF MANAGEMENT.JDEF Anesthesia Postop Eval I: Summary Notes Anesthesia Complication No 03/11/24 12:15 ASSOCIATE PROFESSOR OF MANAGEMENT.JDEF Anesthesia Complication Comment: Post-operative progress note Anesthesia: Postop Eval II Evaluation Mental status: Awake Pain Level: 0 nausea: No Vomiting: No
== END 2024-03-11 14:47 | disposition home or self-care (01) ==
LOC: SDC 09:43 → AC 09:46
PROVIDERS: PCP Family Medicine; Referring Provider Urology; Visit Provider Urology
PROC: (CPT 64561; principal; 2024-03-11 11:00)
DX: R35.0 Frequency of micturition (principal); R39.15 Urgency of urination; J45.909 Unspecified asthma, uncomplicated; Z79.51 Long term (current) use of inhaled steroids
CPT/HCPCS: 64561; 00300; 72170; 76000; 81025; J7040

== ENCOUNTER 2024-03-25 08:31 | Day surgery (SDC) | payer MEDICARE, SELFPAY ==
[2024-03-25] VITALS (10 sets, daily range): BP systolic 82–110; BP diastolic 43–80; PULSE 63–75; RESP 16–18; TEMP 36.4–37.1; O2SAT 94–100; BMI 27.6
[2024-03-25] MEDS: Vancomycin IV 1,000 MG/200 ML BAG 200 MG IV (09:03)
[2024-03-25 09:08] LABS: Internal QC Validated? YES +Cl - CLEAR BKGD; Pregnancy, Urine Negative Negative
[2024-03-25] MEDS: DiphenhydrAMINE 50 MG/ML Syringe 25 MG IV (10:14)
[2024-03-25] MEDS: Clindamycin 900 MG/50 ML BAG 75 MG IV (10:20)
[2024-03-25] MEDS: Lidocaine 1% /Epi 1:100 (20ml) 20 ML Vial (10:49)
== END 2024-03-25 13:50 | disposition home or self-care (01) ==
LOC: SDC 08:32 → AC 08:33
PROVIDERS: PCP Family Medicine; Referring Provider Urology; Visit Provider Urology
PROC: (CPT 64590; principal; 2024-03-25 10:00)
DX: R35.0 Frequency of micturition (principal); R39.15 Urgency of urination; R35.1 Nocturia; J45.909 Unspecified asthma, uncomplicated; Z79.51 Long term (current) use of inhaled steroids
CPT/HCPCS: 64590; 00300; 81025; A4216; J2405

== ENCOUNTER 2025-01-05 14:13 | Emergency (ER) | payer MEDICARE, SELFPAY ==
[2025-01-05 14:14] VITALS: BP 105/82; PULSE 67; RESP 16; TEMP 36.4; O2SAT 98; BMI 25.7
--- NOTE | 2025-01-05 14:17 | EKG12_ITS ---
Test Reason : Blood Pressure : */* mmHG Vent. Rate : 68 BPM Atrial Rate : 71 BPM P-R Int : 140 ms QRS Dur : 82 ms QT Int : 404 ms P-R-T Axes : 59 88 73 degrees QTcB Int : 429 ms Normal sinus rhythm Normal ECG Confirmed by ALEXANDRE RODRIGES, CHARLEY ([id number]), social media editor LUIS LI ([id number]) on 01/06/2025 1:34:37 PM Referred By: Confirmed By: CHARLEY SCHROEDER MD
[2025-01-05 14:32] LABS: Mucous, Urine 0 SEEN /hpf (<or=2+)
[2025-01-05 14:43] LABS: Internal QC Validated? YES +Cl - CLEAR BKGD
[2025-01-05 14:45] LABS: Pregnancy, Urine Negative Negative; Record Kit Lot#,Urine Preg 962302
[2025-01-05 14:53] LABS: Color, Urine Red (Yellow); Glucose, Dipstick Normal (Normal); Ketone-Dipstick Negative (Negative); Leukocyte Esterase-Dipstick 100 /ul (Negative); Nitrite-Dipstick Negative (Negative); Occult Blood-Urine 250 /ul (Negative); Protein-Dipstick 100 mg/dl (Negative); Specific Gravity, Urine 1.020 (1.002-1.030); Urine Bilirubin Dipstick Negative (Negative)
--- NOTE | 2025-01-05 14:54 | EDS_ITS ---
HPI History of Present Illness Chief Complaint: Chest Pain Detail of Chief Complaint: Chest pain Informant: patient Narrative Narrative: Patient presents to the emergency department with complaint of chest pain that started around 8 AM this morning. Patient describes an achy sensation in her left chest and a throbbing that radiates at times to her left shoulder. She denies nausea or vomiting. Currently rates her pain a 3 out of 10. She states that a week ago had similar discomfort and was seen at a different hospital at [facility] for this. She was told she had a junctional rhythm at that time. Patient denies recent travel or surgery. No history of PE or DVT. Patient has no heart history. She also states she has been having bleeding from her vagina but is not sure if it is coming from her vagina or her bladder. She has history of interstitial cystitis. She was seen by her urologist today who referred her to the emergency department. Patient states that she has incontinence was hard to tell if the blood is coming from her vagina or urine. She normally wears a adult diaper. She states in the last 2 months her bleeding is stopped for 2 days. She denies fevers or chills or sweats. She denies nausea or vomiting. She does not think she is . She is G3, P3. She cannot get into see her INSIDE SALES COORDINATOR until January [facility] Medical History Frequency of micturition Urgency of micturition Interstitial cystitis Wears glasses Depression Anxiety Anemia Restless legs Asthma Non-smoker Home Medications ?Medication ?Instructions ?Recorded ?Last Taken ?Type multivitamin (Daily Multi-Vitamin 1 tab PO DAILY 12/30 Unknown History tablet) sulfamethoxazole 800 1 tab PO BID #6 TABLETS 12/18 Unknown Rx mg-trimethoprim 160 mg tablet Allergy/AdvReac Type Severity Reaction Status Date / Time Penicillins Allergy Severe Anaphylaxis Verified 12/30/24 11:12 vancomycin AdvReac Intermediate Itching Verified 12/30/24 11:12 Surgical History Hx of surgical procedure Hx of cystoscopy History of cystoscopy Hx of wisdom tooth extraction Hx laparoscopic cholecystectomy Hx of laparoscopy History of dilation and curettage History of Social History Smoking Status: Never smoker ROS ROS ED Review of Systems ROS Unobtainable: other Constitutional Constitutional ED: Reports lethargy; Denies chills, fever(s), sweats or weight loss Eyes Eyes: Denies blurry vision, change in vision or diplopia ENT ENT ED: Denies rhinorrhea or sore throat Cardiovascular Cardiovascular: Reports chest pain; Denies orthopnea or racing heartbeat Respiratory/Chest Respiratory/Chest: Denies cough, dyspnea, dyspnea on exertion, orthopnea or sputum Gastrointestinal Gastrointestinal: Denies abdominal pain, diarrhea, nausea or vomiting Genitourinary Genitourinary ED: Reports hematuria and other Details: Vaginal bleeding ; Denies dysuria or urinary frequency Musculoskeletal Musculoskeletal: Denies arthralgias, back pain, myalgias or neck pain Integumentary Denies abscess, Abrasions or rash Neurologic Neurologic: Denies headache(s) or weakness Psychiatric Psychiatric: Denies anxiety, depression or suicidal thoughts Endocrine Endocrinology: Denies polydipsia, polyphagia or polyuria Hematologic/Lymphatic Hematologic/Lymphatic: Denies easy bleeding, easy bruising or lymphadenopathy Allergic/Immunologic Allergic/Immunologic ED: Denies mouth swelling, tongue swelling or urticaria EXAM Physical Exam Const Vital Signs: 01/05/25 14:14 01/05/25 14:17 01/05/25 15:13 Temperature 97.5 F L Temperature Source Temporal Pulse Rate 67 Respiratory Rate 16 Respiratory Effort Normal Blood Pressure 105/82 H Blood Pressure Mean 89 Pulse Ox 98 Oxygen Delivery Method Room Air Room Air 01/05/25 15:21 01/05/25 16:22 Temperature 98.3 F Temperature Source Oral Pulse Rate 65 66 Respiratory Rate 16 20 H Respiratory Effort Blood Pressure 119/80 111/73 Blood Pressure Mean 93 85 Pulse Ox 97 97 Oxygen Delivery Method Room Air Room Air Positive well nourished and well developed General Appearance ED: well developed and NAD HEENT Reports TM's clear and moist mucous membranes normocephalic and atraumatic; Negative for trauma or tenderness Tympanic Membrane ED: Yes TM's clear Eyes PERRL and EOMs intact bilaterally General Eye ED: Negative for pale conjunctiva or scleral icterus Neck no lymphadenopathy, supple and no JVD General: Negative for tenderness Chest Wall inspection of chest normal and palpation of chest normal Chest: Negative for tenderness Resp normal respiratory effort and clear to auscultation bilaterally Effort and Inspection: Negative for respiratory distress or pain with movement Auscultation: Negative for rhonchi, wheezes or diminished lung sounds Cardio regular rate, regular rhythm, S1 normal heart sound, S2 normal heart sound and no murmurs Peripheral Pulses: pulses 2+ throughout GI normal to inspection, nondistended, normoactive bowel sounds, soft to palpation, non-tender, non-distended and no masses Back/Spine no CVA tenderness and no thoracic nor lumbar tenderness Extremity normal to inspection General Extremety ED: Negative for edema General Extremity: Negative for edema Neuro oriented x3, CN's II-XII intact bilaterally, no sensory deficits noted and gait normal Sensorium / Orientation: awake, alert, oriented to person, oriented to place and oriented to time Motor Exam: strength 5/5 throughout and strength abnormal Psych mental status grossly normal Skin no rashes or lesions noted and no wounds MDM MDM MDM Narrative Medical decision making narrative: Patient presents to the emergency department with chest pain and vaginal bleeding as well. No significant heart history. No significant risk factors for PE. She does have history of anxiety but states this feels different. Will obtain EKG which did show sinus rhythm with ventricular rate of 68 bpm with no acute ST segment changes. Will obtain labs as well as urinalysis. Will perform a pelvic exam to evaluate source of bleeding. EKG obtained arrival showed a sinus rhythm with rate of 60 bpm with no acute ST segment changes. CBC with differential shows a white count of 5.5 with hemoglobin 11.9 and platelet count of 311. Chemistries unremarkable. Troponin was 10. D-dimer was normal at less than 0.27. Chest x-ray unremarkable. Urinalysis positive for blood and 10-25 WBCs. I did send off a urine culture. Urine hCG was negative. Patient had a pelvic ultrasound that showed simple left ovarian cyst measuring up to 4.8 cm. At this point she has an appointment in February with her INSIDE SALES COORDINATOR. She does not want to follow-up with INSIDE SALES COORDINATOR on-call here and we discussed potential for starting Aygestin after discussing with OB. She does not want to do that currently. I will put her on Bactrim for 3 days and asked that she follow-up with her urologist. Her chest pain I feel is likely benign or musculoskeletal. She does have history of anxiety also. Lab Data Attestation: I reviewed the patient's lab results. Labs: Laboratory Results - last 24 hr 08/01/05/25 01/05/25 14:20 15:05 16:27 WBC 5.5 RBC 4.16 L Hgb 11.9 L Hct 36.5 L MCV 87.7 MCH 28.6 MCHC 32.6 RDW Std Deviation 39.0 RDW Coeff of [place] 12.1 Plt Count 311 MPV 9.0 Immature Gran % (Auto) 0.400 Neut % (Auto) 59.5 Lymph % (Auto) 32.1 [place] % (Auto) 6.2 Eos % (Auto) 1.1 Baso % (Auto) 0.7 Absolute Neuts (auto) 3.3 Absolute Lymphs (auto) 1.77 Nucleated RBC % 0 D-Dimer Quant (PE/DVT) < 0.27 L Sodium 138 Potassium 3.7 Chloride 106 Carbon Dioxide 23.0 Anion Gap 10 BUN 10 Creatinine 0.67 L Estim Creat Clear Calc 112.03 Est GFR (MDRD) Non-Af 121 BUN/Creatinine Ratio 14.8 Glucose 110 H Calcium 8.4 Troponin T High Sens 10 Troponin T Hi Sens 2 Hr < 6 Urine Color Red Urine Clarity Turbid Urine pH 6.0 Ur Specific [place] 1.020 Urine Protein 100 H Urine Glucose (UA) Normal Urine Ketones Negative Urine Occult Blood 250 H Urine Nitrite Negative Urine Bilirubin Negative Urine Urobilinogen Normal Ur Leukocyte Esterase 100 H Urine RBC > 100 SEEN Urine WBC 10-25 SEEN Ur Squamous Epith Cells 5-10 SEEN Urine Bacteria 0 SEEN Urine Mucus 0 SEEN Urine Test Negative Radiography Diagnostic Testing: Clinical Impression(s) from Imaging Studies Chest X-Ray 01/05/25 15:27 IMPRESSION: Normal Reading Location: [facility] Transvaginal US 01/05/25 15:43 IMPRESSION: 1. Small amount of nonspecific fluid in the lower uterine segment/cervix. 2. Otherwise normal appearance of the uterus and endometrial stripe complex. 3. Simple left ovarian cyst measuring up to 4.8 cm. No free pelvic fluid. Reading Location: [facility] 1 view chest x-ray obtained interpreted by myself as no evidence of infiltrate or pneumothorax or acute disease process. EKG Initial EKG: Attestation: I personally reviewed and interpreted this EKG as follows: Comments: Sinus rhythm with ventricular rate of 68 bpm with no acute ST segment changes Discharge Plan Triage Chief Complaint: Chest Pain Other Complaint: Complaint ED Provider: Gianni Bland Dx/Rx/DC Orders Clinical Impression: Chest pain, UTI (urinary tract infection), DUB (dysfunctional uterine bleeding) Instructions: ED Chest Pain, Uncertain Cause, ED Dysfunctional Uterine Bleeding, ED UTIs Women Prescriptions: New sulfamethoxazole-trimethoprim 800-160 mg tablet 1 tab PO BID Qty: 6 0RF No Action multivitamin [Daily Multi-Vitamin] Tablet 1 tab PO DAILY Primary Care Provider: Tavo Olivera Referrals: Tavo Olivera DO [Primary Care Provider] - Activity Restrictions/Additional Instructions: Follow-up with your INSIDE SALES COORDINATOR and urology Print Language: Italian Disposition Disposition: Home, Self Care
--- NOTE | 2025-01-05 15:05 | ED.RN ---
iv started by IKE Giles, MEDIC STUDENT
[2025-01-05 15:13] LABS: Red Blood Cells-Urine > 100 SEEN /hpf (0-5)
[2025-01-05 15:14] LABS: Squamous Epithelial Cells - UA 5-10 SEEN /hpf (5-10)
[2025-01-05 15:21] VITALS: BP 119/80; PULSE 65; RESP 16; TEMP 36.8; O2SAT 97
[2025-01-05 15:24] LABS: Hematocrit 36.5 % (37-47); Hemoglobin 11.9 g/dL (12.0-15.0); Immature Granulocytes Count 0.020 X10^3/uL (0.0-0.0); Mean Corp Hgb Conc 32.6 g/dL (32-36); Mean Corpuscular Volume 87.7 fL (81-99); Mean Platelet Vol. 9.0 fl (6.2-12.0); NRBC Flagged by Analyzer 0 % (0-5); Platelet Count 311 K/mm3 (150-450); RBC Distribution Width CV 12.1 % (11.6-14.6); RBC Distribution Width SD 39.0 fl (35.1-43.9); Red Blood Count 4.16 M/mm3 (4.2-5.4); White Blood Count 5.5 K/mm3 (4.4-11.0)
--- NOTE | 2025-01-05 15:27 | RAD_ITS ---
PROCEDURE: CHEST 1 VIEW (PORTABLE) 01/05/2025 REASON FOR EXAM: CHEST PAIN TECHNIQUE: Frontal view of the chest. COMPARISON: None FINDINGS: Hardware: EKG leads Heart: Normal Lungs: Clear. No pneumothorax or pleural effusion. Bones: The bones are unremarkable. RAD/Chest 1 View (Portable) IMPRESSION: Normal Reading Location: [id number]
--- NOTE | 2025-01-05 15:43 | US_ITS ---
PROCEDURE: TRANSVAGINAL NON- 01/05/2025 REASON FOR EXAM: ABNORMAL BLEEDING TECHNIQUE: Transvaginal non-OB pelvic ultrasound. COMPARISON: None available. FINDINGS: Anteverted uterus appears normal in size and smooth in contour, measuring 10.1 x 5.6 x 3.8 cm. No discrete uterine myoma is visualized. There is small amount of nonspecific anechoic fluid within the lower uterine segment/cervix. Endometrial stripe is normal in thickness measuring 0.3 cm. The right ovary measures 3.4 x 2.3 x 2 cm. Left ovary measures 5.6 x 4.7 x 3.5 cm, and contains a prominent simple anechoic cyst measuring 4.8 x 4.4 x 3 cm. Blood flow is demonstrated bilaterally within the ovaries on color Doppler. No evidence of torsion. No adnexal mass or significant free pelvic fluid is seen. US/Transvaginal Non- IMPRESSION: 1. Small amount of nonspecific fluid in the lower uterine segment/cervix. 2. Otherwise normal appearance of the uterus and endometrial stripe complex. 3. Simple left ovarian cyst measuring up to 4.8 cm. No free pelvic fluid. Reading Location: [id number]
[2025-01-05 16:03] LABS: Anion Gap 10 (5-15); BUN 10 mg/dL (4-19); BUN/Creat Ratio 14.8 RATIO (10-20); Calcium,Total 8.4 mg/dL (7.6-11.0); Carbon Dioxide 23.0 mmol/L (21.0-32.0); Chloride 106 mmol/L (98-108); Estimated Creatinine Clearance 112.03 ml/min (50-250); Glucose 110 mg/dL (70-99); Potassium 3.7 mmol/L (3.3-5.1); Troponin T High Sensitivity 10 ng/L (<=14)
[2025-01-05 16:18] LABS: D-Dimer Quantitative (DVT/PE) < 0.27 FEU/ug/m (0.27-0.49)
[2025-01-05 16:22] VITALS: BP 111/73; PULSE 66; RESP 20; O2SAT 97
[2025-01-05 17:07] LABS: Troponin T High Sens 2 HR < 6 ng/L (<=14)
[2025-01-05 18:00] VITALS: BP 117/79; PULSE 89; RESP 16; O2SAT 98
[2025-01-05 18:02] VITALS: BP 117/79; PULSE 89; RESP 16; TEMP 36.3; O2SAT 98
== END 2025-01-05 18:10 | disposition home or self-care (01) ==
PROVIDERS: Emergency Provider Emergency Medicine; PCP Family Medicine; Visit Provider Emergency Medicine
DX: R07.9 Chest pain, unspecified (principal); N39.0 Urinary tract infection, site not specified; N83.292 Other ovarian cyst, left side; N93.8 Other specified abnormal uterine and vaginal bleeding; M25.512 Pain in left shoulder; R32 Unspecified urinary incontinence; F32.A Depression, unspecified; F41.9 Anxiety disorder, unspecified
CPT/HCPCS: 71045; 76830; 80048; 81001; 81025; 84484; 85025; 85379; 87086; 87088; 87186; 93005; 99285; A4216

== ENCOUNTER 2025-01-13 05:51 | Day surgery (SDC) | payer MEDICARE, SELFPAY ==
[2025-01-13] VITALS (11 sets, daily range): BP systolic 94–107; BP diastolic 55–73; PULSE 51–62; RESP 16; TEMP 36.1–36.6; O2SAT 94–99; BMI 27.1
--- OUTSIDE RECORDS SUMMARY | 2025-01-13 05:55 | XMS RPT_ITS | CCD ---
Author Organization [facility] Care Team Providers Care Glass Driller Name Role Phone ARMANDO LAND Unavailable Unavailable Brittanie Whtifield Primary Care Provider Brittanie Whitfield Primary Care Provider Unavailable Primary Care Provider Unavailabl Brittanie Acosta Primary Care Provider [phone] Brittanie Whitfield MD Primary Care Provider Brittanie Whitfield MD Primary Care Provider PHYSICIAN, NONE Primary Care Physician Unavailab le Unavailable Primary Care Provider UnavailDO Perry Davila Primary Care Provider [phone] DO Perry Perea Attending Provider [phone] Perry Perea Attending Unavailable Perry Perea Primary Care Unavailable Unavailable Primary Care Provider Unavailshaniqua Perea Jr., MD, George Primary Care Provider Elma pepeilable JOLIE CONTEH Referring Unavailable RAMIREZ FISH Attending Unavailable PERRY PEREA JR. Primary Care Unavailable PERRY PEREA JR. Primary Care Unavailable MAHAD CASTILLO Attending Unavailable PERRY PEREA JR. Primary Care Unavailable MAHAD CASTILLO Consulting Unavailable PERRY PEREA JR. Primary Care Unavailable MAHAD CASTILLO Attending Unavailable Unavailable Primary Care Provider Unavailabl e Inc[facility] Primary Care Provider Unav ailable SUPRIYA VIVAR Admitting Unavailable SUPRIYA VIVAR Attending Unavailable [facility] Primary Care Unavailable KRISTA JANSEN Admitting Unavailable KRISTA JANSEN Attending Unavailable [facility] Primary Care Unavailable MOSES HOLDEN Attending Unavailable [facility] Primary Care Unavailable BRITTANIE WHITFIELD Primary Care Unavailable MAHAD SMITH Attending Unavailable ABIOLA GONZALEZ Admitting Unavailable ABIOLA GONZALEZ Attending Unavailable [facility] Primary Care Unavailable BRANDO REGALADO DO Attending UnavailBRANDO Mahajan DO Admitting Unavailab BRANDO Goodman DO Attending Unavailab le PHYSICIAN, NONE Primary Care Unavailable PHYSICIAN, NONE Primary Care Unavailable FEDERICO CLAIRE MD Attending Unavailable PATTI DO, DR ABDIRAHMAN Henry Attending Unavailabl e PATTI DO, DR ABDIRAHMAN Henry Primary Care Unavailabl e JEAN-PAUL LEAF CONDITIONER-CNM, DELIA Centeno Attending Elma vailable WERO LEAF CONDITIONER-CNM, JOLIE Centeno Attending Unavai lable PHYSICIAN, NONE Primary Care Unavailable JEAN-PAUL LEAF CONDITIONER-CNM, DELIA Centeno Attending Elma vailable PHYSICIAN, NONE Primary Care Unavailable EDDIE NICOLE MD Attending Unavailable PHYSICIAN, NONE Primary Care Unavailable EDDIE NICOLE MD Attending Unavailable PHYSICIAN, NONE Primary Care Unavailable WERO LEAF CONDITIONER-CNM, JOLIE Centeno Attending Unavai lable SHERCURTIS DO, BRANDO Saenz Attending Unavailab codi KENNEDY DO, DR KO Siu Attending Unavailable PHYSICIAN, NONE Primary Care Unavailable SHEROCK , BRANDO Saenz Attending Unavailab le JEAN-PAUL LEAF CONDITIONER-CNM, DELIA Centeno Attending Elma vailable PHYSICIAN, NONE Primary Care Unavailable FEDERICO CLAIRE MD Attending Unavailable PHYSICIAN, NONE Primary Care Unavailable FEDERICO CLAIRE MD Attending Unavailable PHYSICIAN, NONE Primary Care Unavailable FEDERICO CLAIRE MD Admitting Unavailable JEAN-PAUL LEAF CONDITIONER-CNM, DELIA Centeno Attending Elma vailable WERO LEAF CONDITIONER-CNM, JOLIE Centeno Attending Unanino labcodi PHYSICIAN, NONE Primary Care Unavailable JEAN-PAUL LEAF CONDITIONER-CNM, DELIA Centeno Attending Elma vailable WERO LEAF CONDITIONER-CNM, JOLIE Centeno Attending Unanino labcodi PHYSICIAN, NONE Primary Care Unavailable DAVID SANDOVAL MD Attending Unavailable PATTI DO, DR ABDIRAHMAN Henry Attending Unavailabl e PATTI DO, DR ABDIRAHMAN Henry Primary Care Unavailabl e JEAN-PAUL LEAF CONDITIONER-CNQuiana, DELIA Centeno Attending Elma vailable PATTI DO, DR ABDIRAHMAN Henry Primary Care Physician PATTI DO, DR ABDIRAHMAN Henry Attending Unavailabl e PATTI DO, DR ABDIRAHMAN Henry Primary Care Unavailabl e PATTI DO, DR ABDIRAHMAN Henry Primary Care Unavailabl e HODAN RODRIGES, ANTOINETTE Conner Attending Unavailable ABDIRAHMAN OLIVERA Primary Care Unavailable JACQUES SHAFER Attending Unavailable ABDIRAHMAN OLIVERA Primary Care Unavailable Patti , Abdirahman Cole Primary Care Provider SELF Referring Unavailable ABDIRAHMAN OLIVERA Primary Care Unavailable HERLINDA SMITH Attending Unavailable PATTI, ABDIRAHMAN MARKY Primary Care Unavailable Patti , Dr. Vo Primary Care Provider Hodan RODRIGES, Dr. Curry Attending Provider Dr. Gianni Bland DO Emergency Provider [phone] Patti, Abdirahman Primary Care Unavailable Antoinette Pettit Referring Unavailable Antoinette Pettit Attending Unavailable Patti, Abdirahman Primary Care Unavailable Gianni Bland Attending Unavailable TheresenesAntoinette macdonald Attending Unavailable Patti, Abdirahman Primary Care Unavailable Antoinette Pettit Referring Unavailable Antoinette Pettit Attending Unavailable Patti, Abdirahman Primary Care Unavailable Hodan, Antoinette Referring Unavailable Antoinette Pettit Attending Unavailable Patti, Abdirahman Primary Care Unavailable Baldo RODRIGUEZ, Dr. Archer Attending Provider Patti , Dr. Vo Referring Provider [phone] Allergies Allergy Classification Reported Allergen(s) Allergy Type Date of Onset Reaction(s) Facility Penicillins (antibiotic) (4 sources) Penicillins Drug Allergy 0 Swelling [facility] (4 sources) Penicillins; Translations: [PENICILLINS] Propensity to adverse reactions to drug 0 [place], [place] (16 sources) Penicillin; Translations: [penicillins] Drug Allergy arm [facility] Comment on above: Swelling at injectio n site (1 source) Penicillin; Translations: [penicillins] Drug Allergy [facility] (2 sources) Penicillins Drug allergy (disorder) 1 [facility] ([place]) Repository (3 sources) Penicillins Propensity to adverse reactions to drug 0 Swelling [facility] (8 sources) Penicillin; Translations: [PENICILLIN G] Drug Allergy 1 [facility] Repository (7 sources) Penicillins Propensity to adverse reactions 3 Swelling [facility] (3 sources) Penicillins Allergy to substance 4 Angioedema, Anaphylaxis [facility] Comment on above: family hx of anaphyl axis reaction (2 sources) Penicillins Drug Allergy 0 Angioedema, Swelling, Hives, Other: See Comments, Unknown [place] (2 sources) Vancomycin Drug Allergy 5 Itching [facility] Comment on above: red face (1 source) Vancomycin Drug Allergy 5 [facility] Repository (1 source) vibegron Allergy to substance 5 red face [facility] Medications Current Medications Medication Drug Class(es) Dates Sig (Normalized) Sig (Original) acetaminophen 325 mg oral capsule (13 sources) Start: 02-07-2023 take 1 capsule by mouth every six hours Tylenol 325 mg oral capsule Dose : 650 mg =, Oral, q6h, 0 Refill(s) Start Date: 02/07/23 Status: Ordered Start: 08-12-2022 End: 08-12-2022 acetaminophen (TYLENOL) tabl et 650 mg Start: 06-28-2022 End: 06-28-2022 acetaminophen (TYLENOL) tabl et 1,000 mg Start: 03-22-2021 End: 04-19-2021 Tylenol 325 mg oral capsule Dose : 650 mg =, Oral, q6h, PRN Pain, scale 1-3, X 14 day(s), # 90 cap(s), 1 Refill(s), 04/19/21 6:24:00 EST, [facility]: [facility], Perineal laceration, second degree, delivered , delivered, 160, cm, 03/20/21 16:37:00 EDT, Height,... Start Date: 03/22/21 Stop Date: 04/19/21 Status: Ordered take 2 tablets by mo uth every six hours as needed for pain acetaminophen (TYLENOL) 325 MG tablet Take 650 mg by mouth every 6 hours as needed for Pain 0 Active Albuterol (1 source) beta2-Adrenergic Agonist Start: 07-16-2023 Albuterol Active 90 MCG INHALATION NEEDED July 16, 2023 12:00am albuterol MDI (90 mcg/inh) CFC free inhalation aerosol (16 sources) Start: 03-20-2021 take 1 puff(s) by inhalation every four hours as needed for wheezing albuterol MDI (90 mcg/inh) CFC free inhalation aerosol 1 puff(s), Inhalation, q4h, PRN as needed for wheezing, # 18 gram(s), 0 Refill(s) Start Date: 03/20/21 Status: Ordered AZO Urinary Pain Relief Max Strength (2 sources) Start: 01-12-2023 AZO Urinary Pain Relief Max Strength Oral, TIDPC, 0 Refill(s) Start Date: 01/12/23 Status: Ordered bisacodyl 10 mg rectal suppository (1 source) Stimulant Laxative Start: 12-25-2020 End: 01-24-2021 bisacodyl (BISAC-EVAC) [address] 1 suppository rectally as needed for Constipation 10 suppository 0 12/25/2020 01/24/2021 Active calcitriol 0.75480 mg oral capsule (5 sources) Vitamin D3 Analog take 1 capsule by mouth once daily calcitriol (Rocaltrol) 0.25 MCG capsule Take 0.25 mcg by mouth daily. 0 Active calcium carbonate 500 mg chewable tablet (5 sources) Start: 09-30-2022 Tums 500 mg oral tablet, chewable Dose : 500 mg = 1 tab(s), Chewed, BID, PRN as needed for indigestion, # 30 tab(s), 0 Refill(s), [facility]: [id number], 160, cm, 09/30/22 10:03:00 EDT, Height Start Date: 09/30/22 Status: Ordered docusate sodium 100 mg oral capsule (4 sources) Start: 02-07-2023 Colace 100 mg oral capsule Dose : 100 mg = 1 cap(s), Oral, BID, PRN Constipation, 0 Refill(s) Start Date: 02/07/23 Status: Ordered Start: 03-22-2021 End: 04-05-2021 Colace 100 mg oral capsule D ose : 100 mg = 1 cap(s), Oral, BID, PRN Constipation, # 100 cap(s), 0 Refill(s), [facility]: [facility] , delivered Perineal laceration, second degree, delivered, 160, cm, 03/20/21 16:37:00 EDT, Height, kg, 03/20/21 16:37:00 Rigo KIM Start Date: 03/22/21 Stop Date: 04/05/21 Status: Ordered Start: 12-27-2020 Colace 100 mg oral capsule Dose : 100 mg = 1 cap(s), Oral, BID, 0 Refill(s) Start Date: 12/27/20 Status: Ordered doxycycline hyclate 100 mg oral capsule (2 sources) Tetracycline-class Drug Start: 12-21-2019 End: 12-28-2019 doxycycline hyclate (VIBRAMYCIN) capsule 100 mg Start: 12-21-2019 End: 12-28-2019 take 1 tablet by mouth twice daily doxycycline hyclate (VIBRA-TABS) 100 MG tablet Take 1 tablet by mouth 2 times daily for 7 days 14 tablet 0 12/21/2019 12/28/2019 Active FeroSul 325 mg (65 mg elemental iron) oral tablet (2 sources) Start: 05-29-2023 take 1 tablet by mouth twice daily FeroSul 325 mg (65 mg elemental iron) oral tablet take 1 tablet by mouth twice a day Start Date: 05/29/23 Status: Ordered hyoscyamine sulfate 0.12 mg / methenamine 118 mg / methylene blue 10 mg / phenyl salicylate 36 mg / sodium phosphate, monobasic 40.8 mg oral capsule (1 source) Oxidation-Redu ction Agent Start: 04-04-2022 End: 06-03-2022 take 1 capsule by mouth four times daily as needed Uribel oral capsule Dose = 1 cap(s), Oral, QID, PRN for urinary discomfort, X 30 day(s), # 120 cap(s), 1 Refill(s), [facility]: [facility] #[id number], Cystitis, interstitial, 160, cm, 04/04/22 15:36:00 EST, Height Start Date: 04/04/22 Stop Date: 06/03/22 Status: Ordered iron,carb/vit C/vit B12/folic (IRON 100 PLUS ORAL) (3 sources) iron,carb/vit C/vit B12/folic (IRON 100 PLUS ORAL) Take by mouth. Active iron,carb/vit C/ vit B12/folic (IRON 100 PLUS ORAL) Take by mouth. 0 Active Comment on above: Take by mouth. l-methylfolate 15 mg oral capsule (2 sources) Start: 09-13-19 l-methylfolate 15 mg oral capsule Dose : 15 mg = 1 cap(s), Oral, Daily, # 90 cap(s), 0 Refill(s) Start Date: 09/12/22 Status: Ordered L-Methylfolate 15 MG tablet (5 sources) take 1 tablet by mouth once daily L-Methylfolate 15 MG tablet Take 15 mg by mouth 1 (one) time each day. Pt unsure of dosage 0 Active levothyroxine sodium 0.025 mg oral tablet (4 sources) l-Thyroxine Start: 12-21-19 End: 01-20-20 take 1 tablet by mouth once daily levothyroxine (SYNTHROID) 25 MCG tablet Take 1 tablet by mouth Daily 30 tablet 0 12/21/2019 Active Azo Urinary Tract Defense (1 source) Start: 04-04-20 AZO Urinary Tract Defense Oral, qDay, 0 Refill(s) Start Date: 04/04/22 Status: Ordered metroNIDAZOLE 500 mg oral tablet (6 sources) Nitroimidazole Antimicrobial Start: 01-13-20 End: 01-20-20 metroNIDAZOLE 500 mg oral tablet Dose : 500 mg = 1 tab(s), Oral, q12h, X 7 day(s), # 14 tab(s), 0 Refill(s), 01/19/23 4:56:00 PM EDT, [facility]: [facility] #[id number], 160, cm, 01/12/23 15:35:00 EDT, Height, 82, kg, 01/12/23 15:35:00 EDT, Dosing Weight Start Date: 01/12/23 Stop Date: 01/19/23 Status: Ordered take 1 capsule by mouth twice da [place] metroNIDAZOLE (Flagyl) 375 MG capsule Take 375 mg by mouth 2 times daily. 0 Active Multivitamin (Daily Multi-Vitamin) tablet (2 sources) Start: 12-30-2024 Multivitamin ( Daily Multi-Vitamin) tablet Active 1 {tbl} PO DAILY December 30, 2024 12:00am Norgestimate-Eth Estradiol (ORTHO-CYCLEN, 28, PO) (5 sources) Norgestimate-Eth Estradiol (ORTHO-CYCLEN, 28, PO) Take by mouth daily 0 Active omega-3s/dha/epa/fish oil/D3 (VITAMIN-D + OMEGA-3 ORAL) (3 sources) omega-3s/dha/epa /fish oil/D3 (VITAMIN-D + OMEGA-3 ORAL) Take by mouth. Active omega-3s/dha/epa /fish oil/D3 (VITAMIN-D + OMEGA-3 ORAL) Take by mouth. 0 Active Comment on above: Take by mouth. oxyCODONE hydrochloride 5 mg oral tablet (1 source) Opioid Agonist Start: 3 End: 3 oxyCODONE 5 mg oral tablet ( IMMEDIATE release ) Dose : 5 mg = 1 tab(s), Oral, q6h, PRN for pain, X 5 day(s), # 20 tab(s), 0 Refill(s), 02/12/23 2:38:00 PM EDT, [facility]: [facility] #[id number], Status post repeat low transverse section, 160, cm, 02/06/23 9:36:00 EDT, Height, 84.1, kg, 02/06/23 9:36:00 EDT, Dosing Weight Start Date: 02/07/23 Stop Date: 02/12/23 Status: Ordered Pentosan Polysulfate Sodium (ELMIRON PO) (5 sources) take 100 mg by mouth three times daily Pentosan Polysulfate Sodium (ELMIRON PO) Take 100 mg by mouth 3 times daily 0 Active microencapsulated potassium chloride 20 meq extended release oral tablet (1 source) Start: 1 take 1 tablet by mouth once daily potassium chloride (KLOR-CON M) 20 MEQ extended release tablet Take 1 tablet by mouth daily 8 tablet 0 07/28/2020 Active 27-1 MG tablet (5 sources) take 1 tablet by mouth once daily 27-1 MG tablet Take 1 tablet by mouth daily. 0 Active AD (17 sources) Start: 1 AD Oral, qDay, 0 Refill(s) Start Date: 12/27/20 Status: Ordered Vit,[id number] (1 source) Start: 0 take 1 tablet by mouth once daily Vit,[id number] c Active 1 TABLET PO DAILY May 20, 2019 12:00am Vit-Fe Fumarate-FA ( VITAMINS PO) (8 sources) Vit-Fe Fumarate-FA ( VITAMINS PO) Take by mouth 0 Suspended Vit-Fe Fumarate-FA ( VITAMINS PO) Take by mouth 0 Active vitamin-ferrous fumerate iron-folic acid 27 mg iron- 0.8 mg tab (4 sources) take 1 tablet by mouth once daily vitamin-ferrous fumerate iron-folic acid 27 mg iron- 0.8 mg tab Take 1 tablet by mouth once daily. Active take 1 tablet by mouth once tatiana y vitamin-ferrous fumerate iron-folic acid 27 mg iron- 0.8 mg tab Take 1 tablet by mouth once daily. 0 Active Comment on above: Take 1 tablet by srinivasan th once daily. [id number] Fum-Folic (1 source) Start: 08-29-19 take 1 tablet by mouth once daily [id number] Fum-Folic Active 1 TAB PO Daily August 27, 2020 11:00pm sulfamethoxazole 800 mg / trimethoprim 160 mg oral tablet (12 sources) Dihydrofolate Reductase Inhibitor Antibacterial, Sulfonamide Antimicrobial Start: 01-06-20 Sulfamethoxazole -Trimethoprim 800-160 mg tablet Active 1 {tbl} PO TWICE A DAY 6 0 January 05, 2025 12:00am Start: 03-11-2024 End: 12-30-2024 Sulfamethoxazole-Trimethopri m 800-160 mg tablet Discontinued 1 {tbl} PO TWICE A DAY 6 3 0 March 25, 2024 1:00am December 30, 2024 11:13am Start: 07-17-2023 End: 03-05-2024 Sulfamethoxazole-Trimethopri m 800-160 mg tablet Discontinued 1 {tbl} PO TWICE A DAY 6 3 0 January 08, 2024 12:00am March 05, 2024 10:06am Start: 07-17-2023 take 1 tablet by srinivasan th twice daily Sulfamethoxazole-Trimethoprim Active 1 T ABLET PO TWICE A DAY 6 3 July 17, 2023 12:00am Start: 05-29-2023 End: 06-03-2023 take 1 tablet by mouth every twelve hours sulfamethoxazole-trimethoprim 800 mg-160 mg oral tablet Dose = 1 tab(s), Oral, q12h, X 5 day(s), # 10 tab(s), 0 Refill(s), Pharm[facility]: [facility] #[id number], 161.3, cm, 05/29/23 13:57:00 EST, Height, 74.4, kg, 05/29/23 13:57:00 EST, Dosing Weight Start Date: 05/29/23 Stop Date: 06/03/23 Status: Ordered terconazole 4 mg/ml vaginal cream (3 sources) Azole Antifungal Start: 12-17-2022 End: 12-24-2022 terconazole (Terazol 7) 0.4 % vaginal cream Insert 1 applicator into the vagina Nightly for 7 days. And external Vulva 45 g 0 12/17/2022 12/24/2022 Active Start: 11-04-2020 End: 11-11-2020 terconazole (TERAZOL 7) 0.4 % vaginal cream Place vaginally nightly. 1 Tube 0 11/04/2020 11/11/2020 Active Vitamin D3 (12 sources) Start: 09-12-2022 Vitamin D3 Dos e : 125 mcg = 1 cap(s), Oral, qWeek, 0 Refill(s) Start Date: 09/12/22 Status: Ordered Completed/Discontinued Medications Medication Drug Class(es) Dates Sig (Normalized) Sig (Original) acetaminophen 325 mg / oxyCODONE hydrochloride 5 mg oral tablet (7 sources) Opioid Agonist Start: 03-11-2024 End: 12-30-2024 Oxycodone-Acetamino phen (Percocet) 5-325 mg tablet Discontinued 1 {tbl} PO Q8H as needed for pain 10 3 0 March 25, 2024 December 30, 2024 11:12am Increased frequency of urination Frequency of micturition Start: 07-17-2023 End: 01-07-2024 Oxycodone-Acetaminophen (Per cocet) 5-325 mg tablet Discontinued 1 {tbl} PO Q8H as needed for pain 10 3 0 July 17, 2023 January 07, 2024 8:26am Interstitial cystitis Interstitial cystitis (chronic) without hematuria Albuterol 90 mcg/actuation aerosol (2 sources) Start: 07-16-2023 End: 12-30-2024 Albuterol 90 mcg/actuation aerosol Discontinued 90 ug INHALATION NEEDED as needed for shortness of breath or wheezing July 16, 2023 1:00am December 30, 2024 11:12am aspirin 325 mg oral tablet (1 source) Platelet Aggregation Inhibitor, Nonsteroidal Anti-inflammatory Drug Start: 12-21-2019 End: 12-21-2019 aspirin tablet 325 mg cephalexin 500 mg oral capsule (2 sources) Cephalosporin Antibacterial Start: 06-28-2022 End: 07-05-2022 cephALEXin (KEFLEX) capsule 500 mg ferrous sulfate 325 mg oral tablet (20 sources) Start: 07-16-2023 End: 03-05-2024 take 1 tablet by mouth once daily Ferrous Sulfate (Ferosul) 325 mg (65 mg iron) tablet Discontinued 325 mg PO DAILY July 16, 2023 1:00am March 05, 2024 10:07am Start: 11-05-2019 IRON (ferrous sulfate 325 mg) 65 mg oral tablet Dose : 325 mg = 1 tab(s), Oral, BIDM, Take with food., # 60 tab(s), 3 Refill(s) Start Date: 09/12/22 Status: Ordered ibuprofen 200 mg oral tablet (9 sources) Nonsteroidal Anti-inflammatory Drug Start: 07-17-2023 End: 12-30-2024 take 1 tablet by mouth every eight hours as needed for pain Ibuprofen (Advil) 200 mg tablet Discontinued 200 mg PO Q8H as needed for pain July 17, 2023 1:00am December 30, 2024 11:12am Start: 02-07-2023 Motrin Dose : 600 mg = 1 tab(s), Oral, q6h, PRN Pain, scale 1-3, 0 Refill(s) Start Date: 02/07/23 Status: Ordered Start: 04-26-2021 ibuprofen 600 mg oral tablet Dose : 600 mg = 1 tab(s), Oral, QID, PRN as needed for pain, # 40 tab(s), 0 Refill(s), [facility]acy: [facility] [address], 160, cm, 04/26/21 13:54:00 EST, Height, kg, 04/26/21 13:54:00 EST, Dosing Weight Start Date: 04/26/21 Status: Ordered Start: 03-22-2021 End: 04-19-2021 ibuprofen 600 mg oral tablet Dose : 600 mg = 1 tab(s), Oral, QID, PRN as needed for pain, X 14 day(s), # 90 tab(s), 1 Refill(s), 04/19/21 6:26:00 EST, [facility]: [facility] [facility] Perineal laceration, second degree, delivered , delivered, 160, cm, 03/20/21 16:37:00 E... Start Date: 03/22/21 Stop Date: 04/19/21 Status: Ordered levoFLOXacin 500 mg oral tablet (1 source) Quinolone Antimicrobial Start: 01-08-2025 End: 01-11-2025 take 1 tablet by mouth every twenty-four hours Levofloxacin 500 mg tablet Discontinued 500 mg PO Q24H 5 5 0 January 08, 2025 12:00am January 11, 2025 2:19pm lidocaine 0.04 mg/mg medicated patch (2 sources) Antiarrhythmic, Amide Local Anesthetic Start: 01-30-2023 End: 01-30-2023 Lidocaine 4 % patch 1 patch Start: 01-30-2023 End: 01-30-2023 Lidocaine 4 % patch 1 patch phenazopyridine hydrochloride 95 mg oral tablet (5 sources) Start: 03-05-2024 End: 12-30-2024 take 1 tablet by mouth at bedtime Phenazopyridine (Uro-Pain) 95 mg tablet Discontinued 95 mg PO AT BEDTIME March 05, 2024 12:00am December 30, 2024 11:12am Start: 05-29-2023 Azo-Standard m g =, Oral, TIDPC, 0 Refill(s) Start Date: 05/29/23 Status: Ordered Start: 09-30-2022 End: 10-02-2022 Pyridium 100 mg oral tablet Dose : 100 mg = 1 tab(s), Oral, TID, X 2 day(s), # 6 tab(s), 0 Refill(s), 10/02/22 12:58:00 EDT, [facility]: [facility] #[id number], 160, cm, 09/30/22 10:03:00 EDT, Height Start Date: 09/30/22 Stop Date: 10/02/22 Status: Ordered Vit,[id number] 1 TABLET tablet (2 sources) Start: 05-20-2019 End: 01-07-2024 take 1 tablet by mouth once daily Vit,[id number] 1 TABLET tablet Discontinued 1 {tbl} PO DAILY May 20, 2019 1:00am January 07, 2024 8:26am Vibegron (3 sources) Start: 07-16-2023 End: 01-07-2024 take 1 tablet by mouth once daily Vibegron (Gemtesa) 75 mg tablet Discontinued 75 mg PO DAILY July 16, 2023 1:00am January 07, 2024 8:27am Start: 07-16-2023 take 1 tablet by srinivasan th once daily Vibegron (Gemtesa) 75 mg tablet Active 75 MG PO DAILY July 16, 2023 12:00am Problems Active Problems Problem Classification Problem Date Documented Date Episodic/Chronic Cardiac dysrhythmias (1 source) Palpitations; Translations: [Palpitations] Episodic Conditions associated with dizziness or vertigo (1 source) Dizziness; Translations: [Dizziness] Episodic Genitourinary symptoms and ill-defined conditions (13 sources) Genuine stress incontinence 04-04-2022 Chronic Genitourinary symptoms and ill-defined conditions (20 sources) Polyuria; Translations: [Bacteriuria] Onset: 08-11-2020 02-28-2022 Episodic Headache; including migraine (1 source) Headache; Translations: [Headache] 09-28-2020 Episodic Headache; including migraine (1 source) Headache; including migraine; Translations: [Acute nonintractable headache, unspecified headache type] Onset: 01-18-2024 Malaise and fatigue (3 sources) Fatigue; Translations: [Other fatigue] Onset: 12-28-2024 12-29-2024 Episodic Nonspecific chest pain (4 sources) Chest pain; Translations: [Chest pain, unspecified] Onset: 12-30-2024 01-05-2025 Episodic OB-related trauma to perineum and vulva (1 source) Second degree perineal tear during delivery - delivered; Translations: [Second degree perineal laceration during delivery] Onset: 03-21-2021 Episodic Open wounds of head; neck; and trunk (1 source) Laceration of vagina; Translations: [Laceration without foreign body of vagina and vulva, initial encounter] Onset: 03-21-2021 Episodic Other female genital disorders (3 sources) Vaginal bleeding; Translations: [Abnormal uterine and vaginal bleeding, unspecified] Onset: 12-24-2024 12-29-2024 Chronic Other female genital disorders (1 source) Abnormal uterine and vaginal bleeding, unspecified; Translations: [Vaginal bleeding] Onset: 12-28-2024 Chronic Other female genital disorders (2 sources) Abnormal uterine bleeding; Translations: [Other specified abnormal uterine and vaginal bleeding] 01-05-2025 Chronic Other female genital disorders (1 source) Other specified noninflammatory disorders of vagina; Translations: [Other specified noninflammatory disorders of vagina] Onset: 09-08-2022 Episodic Other nutritional; endocrine; and metabolic disorders (13 sources) Body mass index 25-29 - overweight 02-28-2022 Episodic Other nutritional; endocrine; and metabolic disorders (1 source) Overweight 02-28-2022 Episodic Other screening for suspected conditions (not mental disorders or infectious disease) (1 source) Encounter for other screening follow-up; Translations: [Encounter for other screening follow-up] Onset: 08-17-2022 Episodic Pneumonia (except that caused by tuberculosis or sexually transmitted disease) (1 source) Infective pneumonia; Translations: [Pneumonia due to organism] Episodic Polyhydramnios and other problems of amniotic cavity (2 sources) Subchorionic hematoma; Translations: [Other specified disorders of amniotic fluid and membranes, first trimester, not applicable or unspecified] Onset: 06-28-2022 Episodic Previous (2 sources) Uterine scar from previous surgery in , childbirth and the puerperium; Translations: [Maternal care for unspecified type scar from previous delivery] Onset: 03-20-2021 Episodic Residual codes; unclassified (1 source) Gestation period, 38 weeks; Translations: [38 weeks gestation of ] Onset: 03-20-2021 Episodic Residual codes; unclassified (1 source) Gestation period, 39 weeks; Translations: [39 weeks gestation of ] Onset: 02-06-2023 Episodic Residual codes; unclassified (1 source) History of uterine scar from previous surgery; Translations: [History of uterine scar from previous surgery] Onset: 02-06-2023 Episodic Spondylosis; intervertebral disc disorders; other back problems (1 source) Acute low back pain; Translations: [Acute low back pain] 10-28-2020 Episodic Unclassified (1 source) Unknown / UNK(Unknown) Onset: 01-01-2017 Unclassified (5 sources) Breast feeding () (observable entity) 11-02-2019 Comment on above: System added from do cumentation. Breast feeding Status documented as Yes on Admission Unclassified (8 sources) Streptococcus agalactiae (organism) 11-01-2019 Unclassified (1 source) Asymptomatic bacteriuria during ; Translations: [Asymptomatic bacteriuria during ] Onset: 08-11-2020 Unclassified (1 source) No additional problems on file Unclassified (2 sources) Contractions; Translations: [Contractions] Onset: 12-17-2022 Urinary tract infections (3 sources) Chronic interstitial cystitis; Translations: [Interstitial cystitis (chronic) without hematuria] 07-17-2023 Chronic Urinary tract infections (4 sources) Urinary tract infection, site not specified; Translations: [Urinary tract infectious disease] Onset: 05-29-2023 Episodic Past or Other Problems Problem Classification Problem Date Documented Da te Episodic/Chronic Abdominal pain (4 sources) Pain in pelvis; Translations: [Pelvic and perineal pain] Onset: 09-08-2022 Episodic Biliary tract disease (20 sources) Biliary colic; Translations: [Chronic cholecystitis] Onset: 08-02-2016 08-02-2016 Episodic Blindness and vision defects (1 source) Other visual disturbances; Translations: [Blurred vision, right eye] Onset: 01-18-2024 Episodic E Codes: Fall (14 sources) Accidental fall ; Translations: [Unspecified fall, initial encounter] Onset: 11-12-2020 11-12-2020 Episodic Early or threatened labor (2 sources) labor without delivery, third trimester; Translations: [ labor without delivery, third trimester] Onset: 12-10-2022 Episodic Hemorrhage during ; abruptio placenta; placenta previa (8 sources) Threatened miscarriage in first trimester; Translations: [Threatened ] Onset: 06-28-2022 Episodic Inflammatory diseases of female pelvic organs (13 sources) Bacterial vaginosis; Translations: [Acute vaginitis] Onset: 10-24-2020 10-24-2020 Episodic Mycoses (14 sources) Candidiasis of vagina; Translations: [Candidiasis of vulva and vagina] Onset: 11-04-2020 Episodic Other complications of (14 sources) Pain in female pelvis; Translations: [Other specified related conditions, second trimester] Onset: 11-04-2020 Episodic Other complications of (11 sources) Vaginal discharge; Translations: [Other specified related conditions, third trimester] Onset: 12-20-2020 12-20-2020 Episodic Other complications of (10 sources) Abdominal pain in ; Translations: [Other specified related conditions, second trimester] Onset: 12-25-2020 12-25-2020 Episodic Other complications of (3 sources) Other specified related conditions, unspecified trimester; Translations: [Other specified related conditions, unspecified trimester] Onset: 09-08-2022 Episodic Other female genital disorders (11 sources) Pain in female genitalia; Translations: [Unspecified condition associated with female genital organs and menstrual cycle] Onset: 11-24-2020 11-24-2020 Episodic Other gastrointestinal disorders (1 source) Constipation, unspecified; Translations: [Constipation, unspecified constipation type] Onset: 08-11-2020 Episodic Other and delivery including normal (14 sources) Early stage of ; Translations: [] Onset: 02-06-2020 12-27-2020 Episodic Comment on above: System added from do cumentation. Status documented as Yes on Admission Residual codes; unclassified (14 sources) Gestation period, 18 weeks; Translations: [18 weeks gestation of ] Onset: 11-04-2020 Episodic Residual codes; unclassified (2 sources) Gestation period, 25 weeks; Translations: [25 weeks gestation of ] Onset: 10-28-2022 10-28-2022 Episodic Residual codes; unclassified (1 source) 25 weeks gestation of ; Translations: [25 weeks gestation of ] Onset: 10-28-2022 Episodic Unclassified (1 source) PRE EMP UDS [place] LIBRARY Onset: 01-01-2017 Results Test Name Value Interpretation Reference Range Facility Urine Cultureon 01-07-2025 [facility] Streptococcus agalactiae (B) [place] Count >100,000 Streptococcus agalactiae (B): REACTION Ampicillin Islt SALAS <=0.25 cefTRIAXone Islt SALAS <=0.12 S Clindamycin.induced Susc Islt NEG Linezolid Islt SALAS <=2 S Vancomycin Islt SALAS 0.5 S Normal [facility] Comment on above: Performed By: #### M 100.2200 ####[facility] [address] [place], [address] 12 Lead EKGon 01-05-2025 12 Lead EKG [facility] Cardiovascular Services [address] [place] [address] 12 Lead EKG 01/05/25 1428 MR#: [id number] Acct: [id number] Name: SELENE LARKIN Rep #: [id number] : 1995 29 From: Rolando Nash MD Attending Dr: Status: DEP ER Ordering Dr: Gianni Bland DO Date: 01/05/25 Location: ED Sex: F C Admitted: Test Reason : Blood Pressure : */* mmHG Vent. Rate : 68 BPM Atrial Rate : 71 BPM P-R Int : 140 ms QRS Dur : 82 ms QT Int : 404 ms P-R-T Axes : 59 88 73 degrees QTcB Int : 429 ms Normal sinus rhythm Normal ECG Confirmed by ALEXANDRE RODRIGES, CHARLEY ([id number]), video tape editor LUIS LI ([id number]) on 01/06/2025 1:34:37 PM Referred By: Confirmed By: CHARLEY NASH MD 01/06/25 1334 Date Rolando Nash MD CC: Dr. Abdirahman Olivera DO; Dr. Gianni Bland DO Signed Normal [facility] Absolute lymphocyte countOrd ered By: Gianni Bland on 01-05-2025 Lymphocytes Auto (Unsp spec) [#/Vol] 1.77 10*3/uL 0.83-4.51 [facility] Absolute neutrophil countOrd ered By: Gianni Bland on 01-05-2025 Neutrophils (Bld) [#/Vol] 3.3 10*3/uL 2.0-7.7 [facility] Anion gap in Serum or Plasma Ordered By: Gianni Bland on 01-05-2025 Anion gap [Moles/Vol] 10 mmol/L 5-15 [facility] Automated lymphocyte count a s percentage of total leukocytesOrdered By: Gianni Bland on 01-05-2025 Lymphocytes/100 WBC Auto (Unsp spec) 32.1 % [facility] BUN/creatinine ratioOrdered By: Remus Baldo on 01-05-2025 Urea nitrogen/Creatinine [Mass ratio] 14.8 mg/mg 03-07 [facility] Basic Metabolic Profile (BMP )on 01-05-2025 BUN/CRE 14.8 RATIO Normal 03-07 [facility] Comment on above: Performed By: #### L 100.0100, L500.2500, L501.4021 ####[facility] [address] [place], [address] Calcium [Mass/Vol] 8.4 mg/dL Normal 7.6-11.0 [facility] Comment on above: Performed By: #### L 100.0100, L500.2500, L501.4021 ####[facility] [address] [place], [address] Chloride [Moles/Vol] 106 mmol/L Normal 98-108 [facility] Comment on above: Performed By: #### L 100.0100, L500.2500, L501.4021 ####[facility] [address] [place], [address] CO2 [Moles/Vol] 23.0 mmol/L Normal 21.0-32.0 [facility] Comment on above: Performed By: #### L 100.0100, L500.2500, L501.4021 ####[facility] [address] [place], [address] Creatinine [Mass/Vol] 0.67 mg/dL Low 0.70-1.20 [facility] Comment on above: Performed By: #### L 100.0100, L500.2500, L501.4021 ####[facility] [address] [place], [address] ECRCL 112.03 ml/min Normal 50-250 [facility] Comment on above: Performed By: #### L 100.0100, L500.2500, L501.4021 ####[facility] [address] [place], [address] GAP 10 Normal 5-15 [facility] Comment on above: Performed By: #### L 100.0100, L500.2500, L501.4021 ####[facility] [address] [place], [address] GFR/1.73 sq M.predicted among non-blacks MDRD (S/P/Bld) [Vol rate/Area] 121 mL/min/{1.73_m2} Normal >60 [facility] Comment on above: Result Comment: mL/m in/1.73m2 CKD-EPI Creatinine Equation (2020) Performed By: #### L 100.0100, L500.2500, L501.4021 ####[facility] [address] [place], [address] Glucose [Mass/Vol] 110 mg/dL High 70-99 [facility] Comment on above: Performed By: #### L 100.0100, L500.2500, L501.4021 ####[facility] [address] [place], [address] Potassium [Moles/Vol] 3.7 mmol/L Normal 3.3-5.1 [facility] Comment on above: Performed By: #### L 100.0100, L500.2500, L501.4021 ####[facility] [address] [place], [address] Sodium [Moles/Vol] 138 mmol/L Normal 133-145 [facility] Comment on above: Performed By: #### L 100.0100, L500.2500, L501.4021 ####[facility] [address] [place], [address] Urea nitrogen [Mass/Vol] 10 mg/dL Normal 4-19 [facility] Comment on above: Performed By: #### L 100.0100, L500.2500, L501.4021 ####[facility] [address] [place], [address] Basophil percentageOrdered B y: Remus Ungur on 01-05-2025 Basophils/100 WBC (Bld) 0.7 % 0-1 [facility] Bilirubin Test strip Ql (U)O rdered By: Remus Ungur on 01-05-2025 Bilirubin Ql (U) Negative Negative [facility] CBC W/Diff, Automatedon 12-18 Absolute Lymph 1.77 X10 3/uL Normal 0.83-4.51 [facility] Comment on above: Performed By: #### L 100.0100, L500.2500, L501.4021 ####[facility] [address] [place], [address] Absolute Neut 3.3 X10 3/uL Normal 2.0-7.7 [facility] Comment on above: Performed By: #### L 100.0100, L500.2500, L501.4021 ####[facility] [address] [place], [address] Basophils/100 WBC (Bld) 0.7 % Normal 0-1 [facility] Comment on above: Performed By: #### L 100.0100, L500.2500, L501.4021 ####[facility] [address] [place], [address] Eosinophils/100 WBC (Bld) 1.1 % Normal 0-5 [facility] Comment on above: Performed By: #### L 100.0100, L500.2500, L501.4021 ####[facility] [address] [place], [address] Erythrocyte distribution width (RBC) [Ratio] 12.1 % Normal 11.6-14.6 [facility] Comment on above: Performed By: #### L 100.0100, L500.2500, L501.4021 ####[facility] [address] [place], [address] Hematocrit (Bld) [Volume fraction] 36.5 % Low 37-47 [facility] Comment on above: Performed By: #### L 100.0100, L500.2500, L501.4021 ####[facility] [address] [place], [address] Hemoglobin (Bld) [Mass/Vol] 11.9 g/dL Low 12.0-15.0 [facility] Comment on above: Performed By: #### L 100.0100, L500.2500, L501.4021 ####[facility] [address] [place], [address] IG% 0.400 Normal 0.0-0.9 [facility] Comment on above: Result Comment: IG% - Immature Granulocytes (promyelocytes, myelocytes and metamyelocytes) > 1% indicates that a LEFT SHIFT is Present. Performed By: #### L 100.0100, L500.2500, L501.4021 ####[facility] [address] [place], [address] Lymphocytes/100 WBC (Bld) 32.1 % Normal 19-41 [facility] Comment on above: Performed By: #### L 100.0100, L500.2500, L501.4021 ####[facility] [address] [place], [address] MCH (RBC) [Entitic mass] 28.6 pg Normal 27.0-32.0 [facility] Comment on above: Performed By: #### L 100.0100, L500.2500, L501.4021 ####[facility] [address] [place], [address] MCHC (RBC) [Mass/Vol] 32.6 g/dL Normal 32-36 [facility] Comment on above: Performed By: #### L 100.0100, L500.2500, L501.4021 ####[facility] [address] [place], [address] MCV (RBC) [Entitic vol] 87.7 fL Normal 81-99 [facility] Comment on above: Performed By: #### L 100.0100, L500.2500, L501.4021 ####[facility] [address] [place], [address] Monocytes/100 WBC (Bld) 6.2 % Normal 0-10 [facility] Comment on above: Performed By: #### L 100.0100, L500.2500, L501.4021 ####[facility] [address] [place], [address] Neutrophils/100 WBC (Bld) 59.5 % Normal 47-70 [facility] Comment on above: Performed By: #### L 100.0100, L500.2500, L501.4021 ####[facility] [address] [place], [address] Nucleated RBC (Bld) [#/Vol] 0 10*3/uL Normal 0-5 [facility] Comment on above: Performed By: #### L 100.0100, L500.2500, L501.4021 ####[facility] [address] [place], [address] Platelet mean volume (Bld) [Entitic vol] 9.0 fL Normal 6.2-12.0 [facility] Comment on above: Performed By: #### L 100.0100, L500.2500, L501.4021 ####[facility] [address] [place], [address] Platelets (Bld) [#/Vol] 311 10*3/uL Normal 150-450 [facility] Comment on above: Performed By: #### L 100.0100, L500.2500, L501.4021 ####[facility] [address] [place], [address] RBC (Bld) [#/Vol] 4.16 10*6/uL Low 4.2-5.4 [facility] Comment on above: Performed By: #### L 100.0100, L500.2500, L501.4021 ####[facility] [address] [place], [address] RDW SD 39.0 fl Normal 35.1-43.9 [facility] Comment on above: Performed By: #### L 100.0100, L500.2500, L501.4021 ####[facility] [address] [place], [address] WBC (Bld) [#/Vol] 5.5 10*3/uL Normal 4.4-11.0 [facility] Comment on above: Performed By: #### L 100.0100, L500.2500, L501.4021 ####[facility] [address] [place], [address] Carbon dioxide, total [Moles /volume] in Central venous bloodOrdered By: Gianni Bland on 01-05-2025 CO2 [Moles/Vol] 23.0 mmol/L 21.0-32.0 [facility] Chest 1 View (Portable)on Chest 1 View (Portable) [facility] Imaging Services [address] [place] [address] Chest 1 View (Portable) MR#: [id number] Acct: [id number] Name: SELENE LARKIN Rep #: [id number] : 1995 F 29 From: Robert Salazar MD PCP: Dr. Abdirahman Olivera, DO Status: REG ER Study: Chest 1 View (Portable) Date of Exam: 01/05/25 Exam# [id number] Ordering Dr: Gianni Bland DO PROCEDURE: CHEST 1 VIEW (PORTABLE) 01/05/2025 REASON FOR EXAM: CHEST PAIN TECHNIQUE: Frontal view of the chest. COMPARISON: None FINDINGS: Hardware: EKG leads Heart: Normal Lungs: Clear. No pneumothorax or pleural effusion. Bones: The bones are unremarkable. RAD/Chest 1 View (Portable) IMPRESSION: Normal Reading Location: [id number] CC: Dr. Abdirahman Olivera DO; Dr. Gianni Bland DO Phone Representative: Signed Normal [facility] Chloride assayOrdered By: Kavitha Bland on 01-05-2025 Chloride [Moles/Vol] 106 mmol/L 98-108 [facility] D-Dimer Quantitative (DVT/PE )on 01-05-2025 D-DIMER QUANT < 0.27 Low 0.27-0.49 [facility] Comment on above: Result Comment: NORM AL D-Dimer level (<0.50) indicates no DVT or PE. Performed By: #### L 300.8000 ####[facility] [address] [facility] [place], [address] Emergency Department Summary on 01-05-2025 Emergency Department Summary [facility] Medical Records Department [address] [place] [address] Emergency Department Summary 01/05/25 MR#: [id number] Acct: [id number] Name: SELENE LARKIN Rep #: [id number] : 1995 29 From: Gianni Bland DO PCP: Dr. Abdirahman Olivera DO Status:DEP ER Location: ED HPI History of Present Illness Chief Complaint: Chest Pain Detail of Chief Complaint: Chest pain Informant: patient Narrative Narrative: Patient presents to the emergency department with complaint of chest pain that started around 8 AM this morning. Patient describes an achy sensation in her left chest and a throbbing that radiates at times to her left shoulder. She denies nausea or vomiting. Currently rates her pain a 3 out of 10. She states that a week ago had similar discomfort and was seen at a different hospital at [facility] for this. She was told she had a junctional rhythm at that time. Patient denies recent travel or surgery. No history of PE or DVT. Patient has no heart history. She also states she has been having bleeding from her vagina but is not sure if it is coming from her vagina or her bladder. She has history of interstitial cystitis. She was seen by her urologist today who referred her to the emergency department. Patient states that she has incontinence was hard to tell if the blood is coming from her vagina or urine. She normally wears a adult diaper. She states in the last 2 months her bleeding is stopped for 2 days. She denies fevers or chills or sweats. She denies nausea or vomiting. She does not think she is . She is G3, P3. She cannot get into see her [facility] until January [facility] Medical History Frequency of micturition Urgency of micturition Interstitial cystitis Wears glasses Depression Anxiety Anemia Restless legs Asthma Non-smoker Home Medications ???Medication ???Instructions ???Recorded ???Last Taken ???Type multivitamin (Daily Multi-Vitamin 1 tab PO DAILY 12/30/24 Unknown H istory tablet) sulfamethoxazole 800 1 tab PO BID #6 TABLETS 01/05/25 U nknown Rx mg-trimethoprim 160 mg tablet Allergy/AdvReac Type Severity Reaction Status Date / Time Penicillins Allergy Severe Anaphylaxis Verified 12/30/24 11:12 vancomycin AdvReac Intermediate Itching Verified 12/30/24 11:12 Surgical History Hx of surgical procedure Hx of cystoscopy History of cystoscopy Hx of wisdom tooth extraction Hx laparoscopic cholecystectomy Hx of laparoscopy History of dilation and curettage History of Social History Smoking Status: Never smoker ROS ROS ED Review of Systems ROS Unobtainable: other Constitutional Constitutional ED: Reports lethargy; Denies chills, fever(s), sweats or weight loss Eyes Eyes: Denies blurry vision, change in vision or diplopia ENT ENT ED: Denies rhinorrhea or sore throat Cardiovascular Cardiovascular: Reports chest pain; Denies orthopnea or racing heartbeat Respiratory/Chest Respiratory/Chest: Denies cough, dyspnea, dyspnea on exertion, orthopnea or sputum Gastrointestinal Gastrointestinal: Denies abdominal pain, diarrhea, nausea or vomiting Genitourinary Genitourinary ED: Reports hematuria and other Details: Vaginal bleeding ; Denies dysuria or urinary frequency Musculoskeletal Musculoskeletal: Denies arthralgias, back pain, myalgias or neck pain Integumentary Denies abscess, Abrasions or rash Neurologic Neurologic: Denies headache(s) or weakness Psychiatric Psychiatric: Denies anxiety, depression or suicidal thoughts Endocrine Endocrinology: Denies polydipsia, polyphagia or polyuria Hematologic/Lymphatic Hematologic/Lymphatic: Denies easy bleeding, easy bruising or lymphadenopathy Allergic/Immunologic Allergic/Immunologic ED: Denies mouth swelling, tongue swelling or urticaria EXAM Physical Exam Const Vital Signs: 01/05/25 14:14 01/05/25 14:17 01/05/25 15:13 Temperature 97.5 F L Temperature Source Temporal Pulse Rate 67 Respiratory Rate 16 Respiratory Effort Normal Blood Pressure 105/82 H Blood Pressure Mean 89 Pulse Ox 98 Oxygen Delivery Method Room Air Room Air 01/05/25 15:21 01/05/25 16:22 Temperature 98.3 F Temperature Source Oral Pulse Rate 65 66 Respiratory Rate 16 20 H Respiratory Effort Blood Pressure 119/80 111/73 Blood Pressure Mean 93 85 Pulse Ox 97 97 Oxygen Delivery Method Room Air Room Air Positive well nourished and well developed General Appearance ED: well developed and NAD HEENT Reports TM's clear and moist mucous membranes normocephalic and atraumatic; Negative for trauma or tenderness Tympanic Membrane ED: Yes TM's clear Eyes PERRL and EOMs (more content not included)... Normal [facility] Eosinophil percentageOrdered By: Gianni Bland on 01-05-2025 Eosinophils/100 WBC (Bld) 1.1 % 0-5 [facility] Erythrocyte distribution wid th ratioOrdered By: Gianni Bland on 01-05-2025 Erythrocyte distribution width (RBC) [Ratio] 12.1 % 11.6-14.6 [facility] Erythrocyte distribution wid th standard deviationOrdered By: Gianni Bland on 01-05-2025 Erythrocyte distribution width (RBC) [Ratio] 39.0 fl 35.1-43.9 [facility] Glomerular filtration rate ( GFR) estimation/1.73 sq m using serum, plasma, or whole bOrdered By: Gianni Bland on 01-05-2025 GFR/1.73 sq M.predicted among non-blacks MDRD (S/P/Bld) [Vol rate/Area] 121 mL/min/{1.73_m2} >60 [facility] Comment on above: mL/min/1.73m2 CKD-EP I Creatinine Equation (2020) Hematocrit Auto (Bld) [Volum e fraction]Ordered By: Gianni Bland on 01-05-2025 Hematocrit (Bld) [Volume fraction] 36.5 % Low 37-47 [facility] Hemoglobin measurementOrdere d By: Gianni Bland on 01-05-2025 Hemoglobin (Bld) [Mass/Vol] 11.9 g/dL Low 12.0-15.0 [facility] Immature granulocytes/100 WB C Auto (Bld)Ordered By: Gianni Bland on 01-05-2025 Immature granulocytes/100 WBC (Bld) 0.400 % 0.0-0.9 [facility] Comment on above: IG% - Immature Granu locytes (promyelocytes, myelocytes and metamyelocytes) > 1% indicates that a LEFT SHIFT is Present. Ketones Test strip Ql (U)Ord ered By: Gianni Bland on 01-05-2025 Ketones Ql (U) Negative Negative [facility] L501.4021on 01-05-2025 Trop T High Sen 10 ng/L Normal <=14 [facility] Comment on above: Performed By: #### L 100.0100, L500.2500, L501.4021 ####[facility] [address] [place], [address] MCV (mean corpuscular volume ) determinationOrdered By: Gianni Bland on 01-05-2025 MCV (RBC) [Entitic vol] 87.7 fL 81-99 [facility] Mean corpuscular hemoglobin (MCH) determinationOrdered By: Gianni Bland on 01-05-2025 MCH (RBC) [Entitic mass] 28.6 pg 27.0-32.0 [facility] Mean corpuscular hemoglobin concentration (MCHC) determinationOrdered By: Gianni Bland on 01-05-2025 MCHC (RBC) [Mass/Vol] 32.6 g/dL 32-36 [facility] Mean platelet volume determi nationOrdered By: Gianni Bland on 01-05-2025 Platelet mean volume (Bld) [Entitic vol] 9.0 fL 6.2-12.0 [facility] Microscopic analysis of urin e for red blood cells (RBC)Ordered By: Gianni Bland on 01-05-2025 Microscopic analysis of urine for red blood cells (RBC) > 100 SEEN /hpf 0-5 [facility] Monocyte percentageOrdered B y: Gianni Bland on 01-05-2025 Monocytes/100 WBC (Bld) 6.2 % 0-10 [facility] Mucus LM Ql (Urine sed)Order ed By: Gianni Bland on 01-05-2025 Mucus Ql (Urine sed) 0 SEEN /hpf [facility] Neutrophil percentageOrdered By: Gianni Bland on 01-05-2025 Neutrophils/100 WBC (Bld) 59.5 % 47-70 [facility] Nitrite Test strip Ql (U)Ord ered By: Gianni Bland on 01-05-2025 Nitrite Ql (U) Negative Negative [facility] Nucleated red blood cell per centageOrdered By: Gianni Bland on 01-05-2025 Nucleated RBC/100 WBC (Bld) [Ratio] 0 % 0-5 [facility] Platelet countOrdered By: Kavitha Bland on 01-05-2025 Platelets (Bld) [#/Vol] 311 10*3/uL 150-450 [facility] Potassium measurement (mass/ volume)Ordered By: Gianni Bland on 01-05-2025 Potassium (Unsp spec) [Mass/Vol] 3.7 mmol/L 3.3-5.1 [facility] ,Urineon 01-05-2025 Beta HCG ( test) Ql (U) Negative Normal [facility] Comment on above: Result Comment: Very dilute urine specimens, as indicated by a low specific gravity, may not contain technical sales representative levels of hCG. If is still suspected, a first morning urine specimen should be collected 48 hours later and tested. Performed By: #### L 400.1090, L400.0001 #### [facility] [address] [place], [address] Protein Test strip Ql (U)Ord ered By: Sara Baldo on 01-05-2025 Protein Ql (U) 100 mg/dl High Negative [facility] RBC Auto (Bld) [#/Vol]Ordere d By: Remus Baldo on 01-05-2025 RBC (Bld) [#/Vol] 4.16 10*6/uL Low 4.2-5.4 [facility] Serum creatinine measurement (mass/volume)Ordered By: Remus Bland on 01-05-2025 Creatinine [Mass/Vol] 0.67 mg/dL Low 0.70-1.20 [facility] Serum glucose measurement (m ass/volume)Ordered By: Gianni Bland on 01-05-2025 Glucose [Mass/Vol] 110 mg/dL High 70-99 [facility] Serum or plasma calcium oly urement (mass/volume)Ordered By: Remus Bland on 01-05-2025 Calcium [Mass/Vol] 8.4 mg/dL 7.6-11.0 [facility] Serum or plasma urea nitroge n measurement (mass/volume)Ordered By: Gianni Bland on 01-05-2025 Urea nitrogen [Mass/Vol] 10 mg/dL 4-19 [facility] Sodium levelOrdered By: Jesus Manuel Bland on 01-05-2025 Sodium [Moles/Vol] 138 mmol/L 133-145 [facility] Squamous epithelial cells de tection in urine sediment by light microscopyOrdered By: Gianni Bland on 01-05-2025 Epithelial cells.squamous LM Ql (Urine sed) 5-10 SEEN /hpf 5-10 [facility] Transvaginal Non-on 01-05-2025 Transvaginal Non- [facility] [address] [place], [place] [address] Transvaginal Non- MR#: [id number] Acct: [id number] Name: SELENE LARKIN Rep #: [id number] : 1995 F 29 From: Reji Cain MD PCP: Dr. Abdirahman Olivera DO Status: REG ER Study: Transvaginal Non- Date of Exam: Exam# [id number] Ordering Dr: Gianni Bland DO PROCEDURE: TRANSVAGINAL NON- 01/05/2025 REASON FOR EXAM: ABNORMAL BLEEDING TECHNIQUE: Transvaginal non-OB pelvic ultrasound. COMPARISON: None available. FINDINGS: Anteverted uterus appears normal in size and smooth in contour, measuring 10.1 x 5.6 x 3.8 cm. No discrete uterine myoma is visualized. There is small amount of nonspecific anechoic fluid within the lower uterine segment/cervix. Endometrial stripe is normal in thickness measuring 0.3 cm. The right ovary measures 3.4 x 2.3 x 2 cm. Left ovary measures 5.6 x 4.7 x 3.5 cm, and contains a prominent simple anechoic cyst measuring 4.8 x 4.4 x 3 cm. Blood flow is demonstrated bilaterally within the ovaries on color Doppler. No evidence of torsion. No adnexal mass or significant free pelvic fluid is seen. US/Transvaginal Non- IMPRESSION: 1. Small amount of nonspecific fluid in the lower uterine segment/cervix. 2. Otherwise normal appearance of the uterus and endometrial stripe complex. 3. Simple left ovarian cyst measuring up to 4.8 cm. No free pelvic fluid. Reading Location: [facility] CC: Dr. Abdirahman Olivera DO; Dr. Gianni Bland DO Phone Representative: Signed Normal [facility] Troponin T HS 2 HRon 025 Trop T High Sen < 6 Normal <=14 [facility] Comment on above: Performed By: #### L 499.0042 #### [facility] [address] [place], [address] Troponin T HS 4 HRon 025 Trop T High Sen Normal <=14 [facility] Comment on above: Result Comment: Canc elled via OM: Order cancelled - Patient discharged Performed By: #### L 499.0043 #### [facility] [address] [place], [address] Troponin T.cardiac [Mass/vol ume] in Serum or Plasma by High sensitivity methodOrdered By: Gianni Bland on 01-05-2025 Troponin T.cardiac High sensitivity method [Mass/Vol] < 6 ng/L <14 [facility] Troponin T.cardiac High sensitivity method [Mass/Vol] 10 ng/L <14 [facility] Urinalysis, Completeon 01-05 EPI,SQUAMOUS 5-10 SEEN Normal 5-10 [facility] Comment on above: Order Comment: COLOR OF URINE MAY AFFECT DIPSTICK RESULTS. CLEAN CATCH Performed By: #### L 400.7600, L400.0001 #### [facility] [address] [place], [address] RBC > 100 SEEN Normal 0-5 [facility] Comment on above: Order Comment: COLOR OF URINE MAY AFFECT DIPSTICK RESULTS. CLEAN CATCH Performed By: #### L 400.7600, L400.0001 #### [facility] [address] [place], [address] WBC 10-25 SEEN Normal 0-5 [facility] Comment on above: Order Comment: COLOR OF URINE MAY AFFECT DIPSTICK RESULTS. CLEAN CATCH Performed By: #### L 400.7600, L400.0001 #### [facility] [address] [place], [address] BACTERIA 0 SEEN Normal None Seen [facility] Comment on above: Order Comment: COLOR OF URINE MAY AFFECT DIPSTICK RESULTS. CLEAN CATCH Performed By: #### L 400.7600, L400.0001 #### [facility] [address] [place], [address] Mucus Ql (Urine sed) 0 SEEN Normal [facility] Comment on above: Order Comment: COLOR OF URINE MAY AFFECT DIPSTICK RESULTS. CLEAN CATCH Performed By: #### L 400.7600, L400.0001 #### [facility] [address] [place], [address] Urine clarityOrdered By: Sara Bland on 01-05-2025 Clarity (U) Turbid Clear [facility] Urine color determinationOrd ered By: Gianni Bland on 01-05-2025 Color (U) Red Yellow [facility] Urine cultureOrdered By: Sara Bland on 01-05-2025 Bacteria identified Cx Nom (U) Streptococcus agalactiae (B) Abnormal [facility] Urine glucose detectionOrder ed By: Gianni Bland on 01-05-2025 Glucose Ql (U) Normal mg/dl Normal [facility] Urine leukocyte esterase det ection by dipstickOrdered By: Gianni Bland on 01-05-2025 Leukocyte esterase Test strip Ql (U) 100 /ul High Negative [facility] Urine pHOrdered By: Gianni Un gur on 01-05-2025 pH (U) 6.0 [pH] 5.0 - 8.0 [facility] Urine testOrdered By: Gianni Bland on 01-05-2025 HCG ( test) Ql (U) Negative [facility] Comment on above: Very dilute urine sp ecimens, as indicated by a low specificgravity, may not contain technical sales representative levels of hCG. If is still suspected, a first morning urinespecimen should be collected 48 hours later and tested. Urine sediment bacteria coun t by microscopy (number/high power field)Ordered By: Gianni Bland on 01-05-2025 Bacteria LM.HPF (Urine sed) [#/Area] 0 /[HPF] None Seen [facility] Urine specific gravity measu rementOrdered By: Gianni Bland on 01-05-2025 Specific gravity (U) [Rel density] 1.020 1.002-1.030 [facility] Urine urobilinogen measureme ntOrdered By: Gianni Bland on 01-05-2025 Urobilinogen Ql (U) Normal mg/dl Normal [facility] White blood cell (WBC) count Ordered By: Gianni Bland on 01-05-2025 WBC (Bld) [#/Vol] 5.5 10*3/uL 4.4-11.0 [facility] White blood cell countOrdere d By: Gianni Eliaskevin on 01-05-2025 White blood cell count 10-25 SEEN /hpf 0-5 [facility] CBC W Auto Differential pane l (Bld)on 12-30-2024 Basophils (Bld) [#/Vol] 0.07 10*3/uL Normal <0.11 [facility] Comment on above: Order Comment: Speci men Type: BLOOD SPECIMEN Ordering Facility: [facility] Address: [address] [place] [address] Performed By: #### 5 #### [facility] [place] [facility] CLIA [id number] [address] [place] [address] [place] Basophils/100 WBC (Bld) 1.1 % Normal [facility] Comment on above: Order Comment: Speci men Type: BLOOD SPECIMEN Ordering Facility: [facility] Address: [address] [place] [address] Performed By: #### 5 #### [facility] [facility] CLIA [id number] [address] [place] [address] [place] Differential cell count method Nom (Bld) Auto Normal [facility] Comment on above: Order Comment: Speci men Type: BLOOD SPECIMEN Ordering Facility: [facility] Address: [address] [place] [address] Performed By: #### 5 #### [facility] [facility] CLIA [id number] [address] [place] [address] [place] Eosinophils (Bld) [#/Vol] 0.11 10*3/uL Normal <0.46 [facility] Comment on above: Order Comment: Speci men Type: BLOOD SPECIMEN Ordering Facility: [facility] Address: [address] [place] [address] Performed By: #### 5 #### [facility] [facility] CLIA [id number] [address] [place] [address] [place] Eosinophils/100 WBC (Bld) 1.8 % Normal [facility] Comment on above: Order Comment: Speci men Type: BLOOD SPECIMEN Ordering Facility: [facility] Address: [address] [place] [address] Performed By: #### 5 #### [facility] CLIA [id number] [address] [place] [address] [place] Erythrocyte distribution width (RBC) [Ratio] 12.2 % Normal 11.5-15.0 [facility] Comment on above: Order Comment: Speci men Type: BLOOD SPECIMEN Ordering Facility: [facility] Address: [address] [place] [address] Performed By: #### 5 #### [facility] [facility] CLIA [id number] [address] [place] [address] [place] Hematocrit (Bld) [Volume fraction] 37.7 % Normal 36.0-46.0 [facility] Comment on above: Order Comment: Speci men Type: BLOOD SPECIMEN Ordering Facility: [facility] Address: [facility] [address] [place] [address] Performed By: #### 5 #### [facility] [facility] CLIA [id number] [address] [place] [address] [place] Hemoglobin (Bld) [Mass/Vol] 12.0 g/dL Normal 11.5-15.5 [facility] Comment on above: Order Comment: Speci men Type: BLOOD SPECIMEN Ordering Facility: [facility] Address: [facility] [address] [place] [address] Performed By: #### 5 #### [facility] [facility] CLIA [id number] [address] [place] [address] [place] Immature granulocytes (Bld) [#/Vol] 0.04 10*3/uL Normal <0.10 [facility] Comment on above: Order Comment: Speci men Type: BLOOD SPECIMEN Ordering Facility: [facility] Address: [facility] [place] [address] Performed By: #### 5 #### [facility] [facility] CLIA [id number] [address] [place] [address] [place] Immature granulocytes/100 WBC (Bld) 0.7 % Normal [facility] Comment on above: Order Comment: Speci men Type: BLOOD SPECIMEN Ordering Facility: [facility] Address: [facility] [place] [address] Performed By: #### 5 #### [facility] [facility] CLIA [id number] [address] [place] [address] [place] Lymphocytes (Bld) [#/Vol] 1.89 10*3/uL Normal 1.00-4.00 [facility] Comment on above: Order Comment: Speci men Type: BLOOD SPECIMEN Ordering Facility: [facility] Address: [address] [place] [address] Performed By: #### 5 #### [facility] [facility] CLIA [id number] [address] [place] Lymphocytes/100 WBC (Bld) 30.7 % Normal [facility] Comment on above: Order Comment: Speci men Type: BLOOD SPECIMEN Ordering Facility: [facility] Address: [address] [place] [address] Performed By: #### 5 #### [facility] [facility] CLIA [id number] [address] [place] [address] [place] MCH (RBC) [Entitic mass] 28.0 pg Normal 26.0-34.0 [facility] Comment on above: Order Comment: Speci men Type: BLOOD SPECIMEN Ordering Facility: [facility] Address: [address] [place] [address] Performed By: #### 5 #### [facility] [facility] CLIA [id number] [address] [place] MCHC (RBC) [Mass/Vol] 31.8 g/dL Normal 30.5-36.0 [facility] Comment on above: Order Comment: Speci men Type: BLOOD SPECIMEN Ordering Facility: [facility] Address: [address] [place] [address] Performed By: #### 5 #### [facility] [facility] CLIA [id number] [address] [place] [address] [place] MCV (RBC) [Entitic vol] 87.9 fL Normal 80.0-100.0 [facility] Comment on above: Order Comment: Speci men Type: BLOOD SPECIMEN Ordering Facility: [facility] Address: [address] [place] [address] Performed By: #### 5 #### [facility] [facility] CLIA [id number] [address] [place] [address] [place] Monocytes (Bld) [#/Vol] 0.50 10*3/uL Normal <0.87 [facility] Comment on above: Order Comment: Speci men Type: BLOOD SPECIMEN Ordering Facility: [facility] Address: [address] [place] [address] Performed By: #### 5 #### [facility] [facility] CLIA [id number] [address] [place] [address] [place] Monocytes/100 WBC (Bld) 8.1 % Normal [facility] Comment on above: Order Comment: Speci men Type: BLOOD SPECIMEN Ordering Facility: [facility] Address: [address] [place] [address] Performed By: #### 5 #### [facility] CLIA [id number] [address] [place] [address] [place] Neutrophils (Bld) [#/Vol] 3.54 10*3/uL Normal 1.45-7.50 [facility] Comment on above: Order Comment: Speci men Type: BLOOD SPECIMEN Ordering Facility: [facility] Address: [address] [place] [address] Performed By: #### 5 #### [facility] [facility] CLIA [id number] [address] [place] [address] [place] Neutrophils/100 WBC (Bld) 57.6 % Normal [facility] Comment on above: Order Comment: Speci men Type: BLOOD SPECIMEN Ordering Facility: [facility] Address: [address] [place] [address], [place] [address] Performed By: #### 5 #### [facility] [facility] CLIA [id number] [address] [place] [address] [place] Nucleated RBC (Bld) [#/Vol] 10*3/uL Normal <0.01 [facility] Comment on above: Order Comment: Speci men Type: BLOOD SPECIMEN Ordering Facility: [facility] Address: [address] [place] [address] Performed By: #### 5 #### [facility] [facility] CLIA [id number] [address] [place] [address] [place] Nucleated RBC/100 WBC (Bld) [Ratio] 0.0 /[address] [facility] Comment on above: Order Comment: Speci men Type: BLOOD SPECIMEN Ordering Facility: [facility] Address: [address] [place] [address] Performed By: #### 5 #### [facility] [facility] CLIA [id number] [address] [place] [address] [place] Platelet mean volume (Bld) [Entitic vol] 8.8 fL Low 9.0-12.7 [facility] Comment on above: Order Comment: Speci men Type: BLOOD SPECIMEN Ordering Facility: [facility] Address: [address] [place] [address] Performed By: #### 5 #### [facility] [facility] CLIA [id number] [address] [place] [address] [place] Platelets (Bld) [#/Vol] 279 10*3/uL Normal 150-400 [facility] Comment on above: Order Comment: Speci men Type: BLOOD SPECIMEN Ordering Facility: [facility] Address: [address] [facility] [place] [place] [address] Performed By: #### 5 #### [facility] CLIA [id number] [address] [place] [address] [place] RBC (Bld) [#/Vol] 4.29 10*6/uL Normal 3.90-5.20 [facility] Comment on above: Order Comment: Speci men Type: BLOOD SPECIMEN Ordering Facility: [facility] Address: [address] [place] [address] Performed By: #### 5 #### [facility] CLIA [id number] [address] [place] [address] [place] [facility] WBC (Bld) [#/Vol] 6.15 10*3/uL Normal 3.70-11.00 [facility] Comment on above: Order Comment: Speci men Type: BLOOD SPECIMEN Ordering Facility: [facility] Address: [address] [place] [address] Performed By: #### 5 #### [facility] CLIA [id number] [address] OF [facility] Comprehensive metabolic 2000 panelon 12-30-2024 Albumin [Mass/Vol] 3.7 g/dL Normal 3.2-5.0 [facility] Comment on above: Order Comment: Speci men Type: BLOOD SPECIMEN Ordering Facility: [facility] Address: [address] [place] [address] Performed By: #### 5 #### [facility] [facility] CLIA [id number] [address] [place] [address] [place] ALP [Catalytic activity/Vol] 44 U/L Low 45-117 [facility] Comment on above: Order Comment: Speci men Type: BLOOD SPECIMEN Ordering Facility: [facility] Address: [address] [place] [address] Performed By: #### 5 #### [facility] [facility] CLIA [id number] [address] [place] ALT [Catalytic activity/Vol] 8 U/L Low 13-61 [facility] Comment on above: Order Comment: Speci men Type: BLOOD SPECIMEN Ordering Facility: [facility] Address: [address] [place] [address] Result Comment: Resu lts may be falsely depressed after the administration of Sulfasalazine and/or Sulfapyridine. Performed By: #### 5 #### [facility] [facility] CLIA [id number] [address] [place] [address] [place] Anion gap [Moles/Vol] 12 mmol/L Normal 5-16 [facility] Comment on above: Order Comment: Speci men Type: BLOOD SPECIMEN Ordering Facility: [facility] Address: [address] [place] [address] Performed By: #### 5 #### [facility] [facility] CLIA [id number] [address] [place] [address] [place] AST [Catalytic activity/Vol] 12 U/L Normal 8-34 [facility] Comment on above: Order Comment: Speci men Type: BLOOD SPECIMEN Ordering Facility: [facility] Address: [address] [place] [address] Result Comment: Resu lts may be falsely depressed after the administration of Sulfasalazine and/or Sulfapyridine. Performed By: #### 5 #### [facility] CLIA [id number] [address] [place] [address] [place] Bilirubin [Mass/Vol] 0.5 mg/dL Normal 0.2-1.0 [facility] Comment on above: Order Comment: Speci men Type: BLOOD SPECIMEN Ordering Facility: [facility] Address: [address] [place] [address] Performed By: #### 5 #### [facility] [facility] CLIA [id number] [address] [place] [address] [place] Calcium [Mass/Vol] 9.1 mg/dL Normal 8.5-10.5 [facility] Comment on above: Order Comment: Speci men Type: BLOOD SPECIMEN Ordering Facility: [facility] Address: [address] [place] [address] Performed By: #### 5 #### [facility] [facility] CLIA [id number] [address] [place] [address] [place] Chloride [Moles/Vol] 104 mmol/L Normal 98-107 [facility] Comment on above: Order Comment: Speci men Type: BLOOD SPECIMEN Ordering Facility: [facility] Address: [address] [place] [address] Performed By: #### 5 #### [facility] CLIA [id number] [address] [place] [address] [place] CO2 [Moles/Vol] 26 mmol/L Normal 21-32 [facility] Comment on above: Order Comment: Speci men Type: BLOOD SPECIMEN Ordering Facility: [facility] Address: [address] [place] [address] Performed By: #### 5 #### [facility] CLIA [id number] [address] [place] [address] [place] Creatinine [Mass/Vol] 0.72 mg/dL Normal 0.51-0.95 [facility] Comment on above: Order Comment: Speci men Type: BLOOD SPECIMEN Ordering Facility: [facility] Address: [address] [place] [address] Result Comment: Bhargavi ents receiving either N-Acetylcysteine (NAC) or Metamizole prior to venipuncture, may have falsely depressed results. Performed By: #### 5 #### [facility] CLIA [id number] [address] [place] [address] [place] eGFRcr SerPlBld CKD-EPI 2020 116 mL/min/1.73m??? Normal >=60 [facility] Comment on above: Order Comment: Speci men Type: BLOOD SPECIMEN Ordering Facility: [facility] Address: [address] [place] [address] Result Comment: June mated Glomerular Filtration Rate (eGFR) is calculated using the 2020 CKD-EPI creatinine equation. This equation utilizes serum creatinine, sex, and age as parameters. The creatinine assay has traceable calibration to isotope dilution-mass spectrometry. Refer to KDIGO guidelines for clinical interpretation. In patients with unstable renal function, e.g. those with acute kidney injury, the eGFR may not accurately reflect actual GFR. Performed By: #### 5 #### [facility] CLIA [id number] [address] [place] [address] [place] Glucose [Mass/Vol] 86 mg/dL Normal 70-100 [facility] Comment on above: Order Comment: Bob men Type: BLOOD SPECIMEN Ordering Facility: [facility] Address: [address] [place] [address] Result Comment: The [place] [employer] (ADA) provides guidance for cutoff values for fasting glucose and random glucose. The ADA defines fasting as no caloric intake for at least 8 hours. Fasting plasma glucose results between 100 to 125 mg/dL indicate increased risk for diabetes (prediabetes). Fasting plasma glucose results greater than or equal to 126 mg/dL meet the criteria for diagnosis of diabetes. In the absence of unequivocal hyperglycemia, results should be confirmed by repeat testing. In a patient with classic symptoms of hyperglycemia or hyperglycemic crisis, random plasma glucose results greater than or equal to 200 mg/dL meet the criteria for diagnosis of diabetes. Reference: Standards of Medical Care in Diabetes 2016, [place] [employer]. Diabetes Care. 2016.39(Suppl 1). Results may be falsely elevated after the administration of Sulfapyridine. Results may be falsely depressed after the administration of Sulfasalazine. Performed By: #### 5 #### [facility] CLIA [id number] [address] [place], [place] [address] [place] Potassium [Moles/Vol] 3.6 mmol/L Normal 3.5-5.1 [facility] Comment on above: Order Comment: Bob men Type: BLOOD SPECIMEN Ordering Facility: [facility] Address: [address] [place] [address] Performed By: #### 5 #### [facility] CLIA [id number] [address] [place] [address] [place] Protein [Mass/Vol] 6.6 g/dL Normal 6.0-8.5 [facility] Comment on above: Order Comment: Bob vicky Type: BLOOD SPECIMEN Ordering Facility: [facility] Address: [address] [place] [address] Performed By: #### 5 #### [facility] CLIA [id number] [address] [place] [address] [place] Sodium [Moles/Vol] 142 mmol/L Normal 136-145 [facility] Comment on above: Order Comment: Speci men Type: BLOOD SPECIMEN Ordering Facility: [facility] Address: [address] [place] [address] Performed By: #### 5 #### [facility] CLIA [id number] [address] [place] [address] [place] Urea nitrogen [Mass/Vol] 8 mg/dL Normal 7-26 [facility] Comment on above: Order Comment: Speci men Type: BLOOD SPECIMEN Ordering Facility: [facility] Address: [address] [place] [address] Performed By: #### 5 #### [facility] CLIA [id number] [address] [place] [address] [place] D dimer FEU PPP-mCncon 12-30 Fibrin D-dimer FEU (PPP) [Mass/Vol] 340 ng/mL FEU Normal <500 [facility] Comment on above: Order Comment: Speci men Type: BLOOD SPECIMEN Ordering Facility: [facility] Address: [address] [place] [address] Performed By: #### 5 #### [facility] CLIA [id number] [address] [place] [address] [place] ECG COMPLETEon 12-30-2024 ECG COMPLETE Ventricular Rate : 6 1 BPM QRS Duration : 80 ms Q-T Interval : 424 ms QTC Calculation(Bazett) : 426 ms Calculated R Mathias : 86 degrees Calculated T Mathias : 39 degrees Junctional rhythm Low voltage QRS Abnormal ECG No previous ECGs available Confirmed by LOLITA HARGROVE MD ([id number]) on 01/02/2025 12:00:44 AM NAME : SELENE LARKIN PID : [id number] : 1995 Gender : Female Race : ORD : [id number] Procedure Date : Dec 30 2024 10:45:58 Edit Date : Jan 02 2025 00:00:48 Diagnosis: Junctional rhythm Low voltage QRS Abnormal ECG No previous ECGs available Confirmed by LOLITA HARGROVE MD ([id number]) on 01/02/2025 12:00:44 AM Test Reason : STAT Location : 0 : ED EDWR Overread By : LOLITA HARGROVE MD Edited By : LOLITA HARGROVE MD Referred By : , Acquired by : [id number], [facility] ED Triage Noteon 12-30-2024 ED Triage Note HNO ID: [id number] Author: LATA DAILEY PA-C Service: Emergency Medicine Author Type: Physician Deep Submergence Vehicle Operator Type: ED Triage Notes Filed: 12/30/2024 10:48 Note Text: ED TRIAGE PROVIDER NOTE Patient Name: Selene Larkin Service Date: 12/30/24 BRIEF HPI: This is a 29 year old female who presents to the ED with: Left-sided chest pain x 1 day, lightheadedness. Denies any history of blood clots judith or lateral leg swelling, history of recent surgery. No OCP use. BRIEF EXAM: NAD Awake and Alert Non labored breathing No focal neurological deficits INITIAL WORKUP AND DECISION MAKING: Orders Placed This Encounter XR CHEST 1V FRONTAL PORT Complete Blood Count and Differential Comprehensive Metabolic Panel Magnesium Blood High Sensitivity Troponin I with Reflex for ED Chest Pain HCG, Qualitative, Urine D-Dimer ECG Complete w Interpretation - hand to Attending for review (EKG) SIGNATURE: Lata Dailey PA-C [facility] HCG Preg Ur Qlon 12-30-2024 HCG ( test) Ql (U) Negative Normal Negative [facility] Comment on above: Order Comment: Speci men Type: BLOOD SPECIMEN Ordering Facility: [facility] Address: [address] [place] [address] Result Comment: This test is intended to aid in the early detection of . Very dilute urine samples, as indicated by a low specific gravity, may not contain technical sales representative levels of hCG. This test detects intact hCG only. This test does not reliably detect hCG degradation products, including free-beta subunit and beta-core fragment. Therefore, this test may show reduced reactivity in urine after 8 weeks gestation. A number of conditions other than , including trophoblastic disease and certain non-trophoblastic neoplasms cause elevated levels of hCG. As with any assay employing mouse antibodies, the possibility exists for interference by human anti-mouse antibodies (HAMA) in the specimen. The test provides a presumptive diagnosis for . Performed By: #### 5 #### [facility] CLIA [id number] [address] [place], [place] [address] [place] HIGH SENSITIVITY TROPONIN I (INITIAL)on 12-30-2024 Tropinin I.cardiac panel High sensitivity method <2.5 Normal 0.0-34.0 [facility] Comment on above: Order Comment: Speci men Type: BLOOD SPECIMEN Ordering Facility: [facility] Address: [address] [place] [address] Performed By: #### 5 #### [facility] CLIA [id number] [address] [place], [place] [address] [place] Magnesium SerPl-mCncon 12-30 Magnesium [Mass/Vol] 1.9 mg/dL Normal 1.6-2.6 [facility] Comment on above: Order Comment: Speci men Type: BLOOD SPECIMEN Ordering Facility: [facility] Address: [address] [place] [address] Performed By: #### 5 #### [facility] [place] [id number] [address] [place] [address] [place] XR CHEST 1V FRONTALon 2024 XR CHEST 1V FRONTAL * * *Final Report* * * DATE OF EXAM: Dec 30 2024 11:19AM RHX [id number] - XR CHEST 1V FRONTAL / PROCEDURE REASON: Chest pain * * * * Physician Interpretation * * * * EXAMINATION: CHEST RADIOGRAPH (SINGLE VIEW AP OR PA) CLINICAL HISTORY: Chest pain MQ: XC1_5 Comparison: 04/24/2013 RESULT: Lines, tubes, and devices: None. Lungs and pleura: The costophrenic angles are clear. No acute infiltrates or congestion is seen. There is no pneumothorax. Cardiomediastinal silhouette: The heart and mediastinum show no acute abnormalities. Other: There are no acute osseous abnormalities. IMPRESSION: No acute abnormalities. Phone Representative: KATHYA Transcribe Date/Time: Dec 30 2024 11:30A Dictated by : RAYRAY CUNHA MD This examination was interpreted and the report reviewed and electronically signed by: RAYRAY CUNHA MD on Dec 30 2024 11:31AM EST [id number] Normal [facility] No Panel Informationon 12-29 Interpretation and review of laboratory results Normal [facility] T4 FREE/FREE THYROXINEon Free T4 [Mass/Vol] 1.2 ng/dL 0.8 - 1.5 ng/dL [place] THYROID STIMULATING HORMONEo n 12-29-2024 TSH Qn 1.970 m[IU]/L [place] Comment on above: 3rd generation ultra sensitive TSH. Basic metabolic panel (Bld)o n 12-28-2024 Anion gap (Bld) [Moles/Vol] 12 mmol/L 0 - 15 mmol/L [place] Chloride [Moles/Vol] 103 mmol/L 98 - 10 9 mmol/L [place] CO2 [Moles/Vol] 25 mmol/L 24 - 32 mmol/L [place] Creatinine [Mass/Vol] 0.80 mg/dL 0.60 - 1.30 mg/dL [place] GFR/1.73 sq M.predicted among non-blacks MDRD (S/P/Bld) [Vol rate/Area] 102 mL/min/{1.73_m2} - PINF [place] Comment on above: Estimated Glomerular Filtration Rate (eGFR) is calculated using the 2020 CKD-EPI creatinine equation. This equation utilizes serum creatinine, sex, and age as parameters. The creatinine assay has traceable calibration to isotope dilution-mass spectrometry. Refer to KDIGO guidelines for clinical interpretation. In patients with unstable renal function, e.g. those with acute kidney injury, the eGFR may not accurately reflect actual GFR. Glucose [Mass/Vol] 92 mg/dL 85 - 125 mg/dL [place] Interpretation and review of laboratory results Normal [place] Potassium [Moles/Vol] 3.9 mmol/L 3.5 - 4.9 mmol/L [place] Sodium [Moles/Vol] 140 mmol/L 138 - 146 mmol/L [facility] Urea nitrogen [Mass/Vol] 10 mg/dL 8 - 26 mg/dL [facility] Anion gap (Bld) [Moles/Vol] 12 mmol/L Normal 0-15 [facility] Comment on above: Order Comment: Speci men Type: BLOOD SPECIMEN Ordering Facility: [facility] Address: [address] [place] [address] Performed By: #### 5 #### [facility] [place] [facility] CLIA [id number] [address] [place] [address] [place] Chloride [Moles/Vol] 103 mmol/L Normal 98-109 [facility] Comment on above: Order Comment: Speci men Type: BLOOD SPECIMEN Ordering Facility: [facility] Address: [facility] [place] [address] Performed By: #### 5 #### [facility] [place] [facility] CLIA [id number] [address] [place] [address] [place] CO2 [Moles/Vol] 25 mmol/L Normal 24-32 [facility] Comment on above: Order Comment: Speci men Type: BLOOD SPECIMEN Ordering Facility: [facility] Address: [address] [place] [address] Performed By: #### 5 #### [facility] [place] [facility] CLIA [id number] [address] [place] [address] [place] Creatinine [Mass/Vol] 0.80 mg/dL Normal 0.60-1.30 [facility] Comment on above: Order Comment: Speci men Type: BLOOD SPECIMEN Ordering Facility: [facility] Address: [address] [place] [address] Performed By: #### 5 #### [facility] [place] [facility] CLIA [id number] [address] [place] [address] [place] GFR/1.73 sq M.predicted among non-blacks MDRD (S/P/Bld) [Vol rate/Area] 102 mL/min/1.73m??? Normal >=60 [facility] Comment on above: Order Comment: Speci men Type: BLOOD SPECIMEN Ordering Facility: [facility] Address: [address] [place] [address] Result Comment: June mated Glomerular Filtration Rate (eGFR) is calculated using the 2020 CKD-EPI creatinine equation. This equation utilizes serum creatinine, sex, and age as parameters. The creatinine assay has traceable calibration to isotope dilution-mass spectrometry. Refer to KDIGO guidelines for clinical interpretation. In patients with unstable renal function, e.g. those with acute kidney injury, the eGFR may not accurately reflect actual GFR. Performed By: #### 5 #### [facility] [place] [facility] CLIA [id number] [address] [place] [address] [place] Glucose [Mass/Vol] 92 mg/dL Normal 85-125 [facility] Comment on above: Order Comment: Speci men Type: BLOOD SPECIMEN Ordering Facility: [facility] Address: [address] [place] [address] Performed By: #### 5 #### [facility] [place] [facility] CLIA [id number] [address] [place] [address] [place] Potassium [Moles/Vol] 3.9 mmol/L Normal 3.5-4.9 [facility] Comment on above: Order Comment: Speci men Type: BLOOD SPECIMEN Ordering Facility: [facility] Address: [address] [place] [address] Performed By: #### 5 #### [facility] [place] [facility] CLIA [id number] [address] [place] [address] [place] Sodium [Moles/Vol] 140 mmol/L Normal 138-146 [facility] Comment on above: Order Comment: Speci men Type: BLOOD SPECIMEN Ordering Facility: [facility] Address: [address] [place] [address] Performed By: #### 5 #### [facility] [place] [facility] CLIA [id number] [address] [place] [address] [place] Urea nitrogen [Mass/Vol] 10 mg/dL Normal 8-26 [facility] Comment on above: Order Comment: Speci men Type: BLOOD SPECIMEN Ordering Facility: [facility] Address: [address] [place] [address] Performed By: #### 5 #### [facility] CLIA [id number] [address] [place] [address] [place] CBC W Auto Differential pane l (Bld)Ordered By: Harinder Ramírez on 12-28-2024 Basophils (Bld) [#/Vol] 0.04 10*3/[facility] [place] Basophils/100 WBC (Bld) 0.6 % [place] Differential cell count method Nom (Bld) Auto [place] Eosinophils (Bld) [#/Vol] 0.11 10*3/uL [facility] Eosinophils/100 WBC (Bld) 1.6 % [place] Erythrocyte distribution width (RBC) [Ratio] 12.0 % 11.5 - 15.0 % [place] Hematocrit (Bld) [Volume fraction] 37.4 % 36.0 - 46.0 % [place] Hemoglobin (Bld) [Mass/Vol] 12.1 g/dL 11.5 - 15.5 g/dL [place] Immature granulocytes (Bld) [#/Vol] [facility] [place] Immature granulocytes/100 WBC (Bld) 0.3 % [place] Interpretation and review of laboratory results Abnormal [place] Lymphocytes (Bld) [#/Vol] 2.12 10*3/uL [place] Lymphocytes/100 WBC (Bld) 30.4 % [place] MCH (RBC) [Entitic mass] 28.2 pg 26.0 - 34.0 pg [place] MCHC (RBC) [Mass/Vol] 32.4 g/dL 30.5 - 36.0 g/dL [place] MCV (RBC) [Entitic vol] 87.2 fL 80.0 - 100.0 fL [place] Monocytes (Bld) [#/Vol] 0.55 10*3/[facility]L [facility] [place] Monocytes/100 WBC (Bld) 7.9 % [place] Neutrophils (Bld) [#/Vol] 4.14 10*3/uL [place] Neutrophils/100 WBC (Bld) 59.2 % [place] Platelet mean volume (Bld) [Entitic vol] 8.6 fL Low 9.0 - 12.7 fL [place] Platelets (Bld) [#/Vol] 290 10*3/uL [place] RBC (Bld) [#/Vol] 4.29 10*6/uL 3.90 - 5.2 0 m/uL [place] WBC (Bld) [#/Vol] 6.98 10*3/uL [facility] CBC W Auto Differential pane l (Bld)on 12-28-2024 Basophils (Bld) [#/Vol] 0.04 10*3/uL Normal <0.11 [facility] Comment on above: Order Comment: Speci men Type: BLOOD SPECIMEN Ordering Facility: [facility] Address: [address] [place] [address] Performed By: #### 5 7021-8 #### [facility] [place] [facility] CLIA [id number] [address] [place] [address] [place] Basophils/100 WBC (Bld) 0.6 % Normal [facility] Comment on above: Order Comment: Speci men Type: BLOOD SPECIMEN Ordering Facility: [facility] Address: [address] [place] [address] Performed By: #### 5 7021-8 #### [facility] [place] [facility] CLIA [id number] [address] [place] [address] [place] Differential cell count method Nom (Bld) Auto Normal [facility] Comment on above: Order Comment: Speci men Type: BLOOD SPECIMEN Ordering Facility: [facility] Address: [address] [place] [address] Performed By: #### 5 7021-8 #### [facility] [place] [facility] CLIA [id number] [address] [place] [address] [place] Eosinophils (Bld) [#/Vol] 0.11 10*3/uL Normal <0.46 [facility] Comment on above: Order Comment: Speci men Type: BLOOD SPECIMEN Ordering Facility: [facility] Address: [facility] [place] [address] Performed By: #### 5 7021-8 #### [facility] [place] [facility] CLIA [id number] [address] [place] [address] [place] Eosinophils/100 WBC (Bld) 1.6 % Normal [facility] Comment on above: Order Comment: Speci men Type: BLOOD SPECIMEN Ordering Facility: [facility] Address: [address] [place] [address] Performed By: #### 5 7021-8 #### [facility] [place] [facility] CLIA [id number] [address] [place] [address] [place] Erythrocyte distribution width (RBC) [Ratio] 12.0 % Normal 11.5-15.0 [facility] Comment on above: Order Comment: Speci men Type: BLOOD SPECIMEN Ordering Facility: [facility] Address: [facility] [address] [place] [address] Performed By: #### 5 7021-8 #### [facility] [place] [facility] CLIA [id number] [address] [place] Hematocrit (Bld) [Volume fraction] 37.4 % Normal 36.0-46.0 [facility] Comment on above: Order Comment: Speci men Type: BLOOD SPECIMEN Ordering Facility: [facility] Address: [place] [address] Performed By: #### 5 7021-8 #### [facility] [facility] CLIA [id number] [address] [place] [address] [place] Hemoglobin (Bld) [Mass/Vol] 12.1 g/dL Normal 11.5-15.5 [facility] Comment on above: Order Comment: Speci men Type: BLOOD SPECIMEN Ordering Facility: [facility] Address: [address] [place] [address] Performed By: #### 5 7021-8 #### [facility] [place] [facility] CLIA [id number] [address] [place] Immature granulocytes (Bld) [#/Vol] 10*3/uL Normal <0.10 [facility] Comment on above: Order Comment: Speci men Type: BLOOD SPECIMEN Ordering Facility: [facility] Address: [facility] [address] [place] [address] Performed By: #### 5 7021-8 #### [facility] [facility] CLIA [id number] [address] [place] [address] [place] Immature granulocytes/100 WBC (Bld) 0.3 % Normal [facility] Comment on above: Order Comment: Speci men Type: BLOOD SPECIMEN Ordering Facility: [facility] Address: [address] [place] [address] Performed By: #### 5 7021-8 #### [facility] [place] [facility] CLIA [id number] [address] [place] [address] [place] Lymphocytes (Bld) [#/Vol] 2.12 10*3/uL Normal 1.00-4.00 [facility] Comment on above: Order Comment: Speci men Type: BLOOD SPECIMEN Ordering Facility: [facility] Address: [address] [place] [address] Performed By: #### 5 7021-8 #### [facility] [facility] CLIA [id number] [address] STATES OF [facility] Lymphocytes/100 WBC (Bld) 30.4 % Normal [facility] Comment on above: Order Comment: Speci men Type: BLOOD SPECIMEN Ordering Facility: [facility] Address: [address] [place] [address] Performed By: #### 5 7021-8 #### [facility] [facility] CLIA [id number] [address] [place] [address] [place] MCH (RBC) [Entitic mass] 28.2 pg Normal 26.0-34.0 [facility] Comment on above: Order Comment: Speci men Type: BLOOD SPECIMEN Ordering Facility: [facility] Address: [address] [place] [address] Performed By: #### 5 7021-8 #### [facility] [place] [facility] CLIA [id number] [address] [place] MCHC (RBC) [Mass/Vol] 32.4 g/dL Normal 30.5-36.0 [facility] Comment on above: Order Comment: Speci men Type: BLOOD SPECIMEN Ordering Facility: [facility] Address: [address] [place] [address] Performed By: #### 5 7021-8 #### [facility] [place] [facility] CLIA [id number] [address] [place], [place] [address] [place] MCV (RBC) [Entitic vol] 87.2 fL Normal 80.0-100.0 [facility] Comment on above: Order Comment: Speci men Type: BLOOD SPECIMEN Ordering Facility: [facility] Address: [address] [place] [address] Performed By: #### 5 7021-8 #### [facility] [place] [facility] CLIA [id number] [address] [place], [place] [address] [place] Monocytes (Bld) [#/Vol] 0.55 10*3/uL Normal <0.87 [facility] Comment on above: Order Comment: Speci men Type: BLOOD SPECIMEN Ordering Facility: [facility] Address: [address] [place] [address] Performed By: #### 5 7021-8 #### [facility] [place] [facility] CLIA [id number] [address] [place] [address] [place] Monocytes/100 WBC (Bld) 7.9 % Normal [facility] Comment on above: Order Comment: Speci men Type: BLOOD SPECIMEN Ordering Facility: [facility] Address: [address] [place] [address] Performed By: #### 5 7021-8 #### [facility] [place] [facility] CLIA [id number] [address] [place] [address] [place] Neutrophils (Bld) [#/Vol] 4.14 10*3/uL Normal 1.45-7.50 [facility] Comment on above: Order Comment: Speci men Type: BLOOD SPECIMEN Ordering Facility: [facility] Address: [address] [place] [address] Performed By: #### 5 7021-8 #### [facility] [place] [facility] CLIA [id number] [address] [place] [address] [place] Neutrophils/100 WBC (Bld) 59.2 % Normal [facility] Comment on above: Order Comment: Speci men Type: BLOOD SPECIMEN Ordering Facility: [facility] Address: [address] [place] [address] Performed By: #### 5 7021-8 #### [facility] [place] [facility] CLIA [id number] [address] [place] [address] [place] Platelet mean volume (Bld) [Entitic vol] 8.6 fL Low 9.0-12.7 [facility] Comment on above: Order Comment: Speci men Type: BLOOD SPECIMEN Ordering Facility: [facility] Address: [address] [place] [address] Performed By: #### 5 7021-8 #### [facility] [place] [facility] CLIA [id number] [address] [place] [address] [place] Platelets (Bld) [#/Vol] 290 10*3/uL Normal 150-400 [facility] Comment on above: Order Comment: Speci men Type: BLOOD SPECIMEN Ordering Facility: [facility] Address: [address] [place] [address] Performed By: #### 5 7021-8 #### [facility] [place] [facility] CLIA [id number] [address] [place] [address] [place] RBC (Bld) [#/Vol] 4.29 10*6/uL Normal 3.90-5.20 [facility] Comment on above: Order Comment: Speci men Type: BLOOD SPECIMEN Ordering Facility: [facility] Address: [address] [place] [address] Performed By: #### 5 7021-8 #### [facility] [place] [facility] CLIA [id number] [address] [place] [address] [place] WBC (Bld) [#/Vol] 6.98 10*3/uL Normal 3.70-11.00 [facility] Comment on above: Order Comment: Speci men Type: BLOOD SPECIMEN Ordering Facility: [facility] Address: [facility] [address] [place] [address] Performed By: #### 5 7021-8 #### [facility] CLIA [id number] [address] [place] [address] [facility] CNOVon 12-28-2024 CNOV Office Visit ([facility] ) SELENE LARKIN ([id number]) 1995 F [facility] Date Time Provider Department 12/28/24 6:10 PM HERLINDA SMITH [facility] During your visit today, we recorded the following information about you: Temperature Pulse Respiration Blood pressure 99 degrees 73/minute 20/minute 112/75 Weight Last Period 66.7 kg 10/15/24 Herlinda Smith PA 12/29/2024 9:27 AM Signed [facility] Subjective Selene [place] Chaya is a 29 year old female. Patient presents with: bleeding for 2 months no appetite: Started about 2 weeks ago nauseated: Started about 2 weeks ago Fatigue Patient is a 29 female presenting with concern for vaginal bleeding, fatigue. This has been ongoing for the last 2 months. Patient notes that she has had vaginal bleeding every day for 2 months now. Notes that she goes through about a pad an hour. She feels very fatigued, tired, has been sleeping more which is a concern for her. She has never had this issue in the past. She attempted to contact her HOMOEOPATH who cannot get her into the office for another month. Patient states that she did go to the emergency room for this complaint 4 days ago, states that she was seen in triage however never got her blood work results or saw a doctor. States that she left because she did not want to wait in the waiting room. Patient is concerned that she might be anemic due to blood loss, therefore she presents to urgent care for evaluation. Patient has no history of ovarian cyst or uterine fibroids. She denies any possible chance of . Patient is not anticoagulated. Patient endorses that she has had previous issues with her thyroid. She has not been getting her thyroid levels checked routinely by her primary care doctor. Notes that her last thyroid levels were monitored about 2 years ago. Patient is concerned that her fatigue is due to her thyroid. She denies any other symptoms at this time such as dizziness, headache, chest pain, shortness of breath, abdominal pain, vomiting, diarrhea or blood in stool. Review of Systems Constitutional: Positive for fatigue. Genitourinary: Positive for vaginal bleeding. All other systems reviewed and are negative. Objective BP 112/75 Pulse 73 Temp 37.2 ?C (99 ?F) Resp 20 Wt 66.7 kg (147 lb) LMP 10/15/2024 (Approximate) SpO2 98% BMI 26.04 kg/m? Physical Exam Constitutional: Appearance: Normal appearance. HENT: Head: Normocephalic and atraumatic. Nose: Nose normal. Mouth/Throat: Mouth: Mucous membranes are moist. Pharynx: Oropharynx is clear. Eyes: Extraocular Movements: Extraocular movements intact. Conjunctiva/sclera: Conjunctivae normal. Pupils: Pupils are equal, round, and reactive to light. Cardiovascular: Rate and Rhythm: Normal rate and regular rhythm. Pulmonary: Effort: Pulmonary effort is normal. Breath sounds: Normal breath sounds. Abdominal: General: Abdomen is flat. Bowel sounds are normal. There is no distension. Palpations: Abdomen is soft. There is no mass. Tenderness: There is no abdominal tenderness. There is no right CVA tenderness, left CVA tenderness, guarding or rebound. Hernia: No hernia is present. Musculoskeletal: General: Normal range of motion. Cervical back: Neck supple. Skin: General: Skin is warm and dry. Neurological: General: No focal deficit present. Mental Status: She is alert and oriented to person, place, and time. Mental status is at baseline. Psychiatric: Mood and Affect: Mood normal. History and Record Review External record(s) reviewed: prior outpatient record. Findings from review of outpatient records: Patient was seen and evaluated in the emergency department on 12-24-2024. She had blood work completed. At that time CBC was unremarkable as well as CMP. Differential Diagnoses - is more likely for the following reason(s): suggested by HANDP Disposition The patient was discharged. OTC Medications were advised: The patient is a 29-year-old female presenting with vaginal bleeding and fatigue. On physical exam, the patient is resting comfortably no acute distress. Patient appears nontoxic. She has moist oral mucosa. Sitting upright in a chair speaking in full sentences. PERRL,, bilaterally. HEENT is grossly unremarkable. Heart is regular. Lungs are clear and equal bilaterally. Patient's abdomen is soft and nontender. No CVA tenderness bilaterally. Vital signs are stable at this time. With differential diagnosis including anemia versus dehydration versus electrolyte imbalance versus UTI versus versus hypothyroidism I did obtain CBC, i-STAT BMP, urine dipstick, urine test as well as TSH and T4 levels. CBC shows no evidence of leukocytosis or anemia. I-STAT BMP shows no evidence of electrolyte imbalance. Urine dipstick unremarkable, free from any infection, (more content not included)... Normal [facility] HCG ( test) Ql (U)o n 12-28-2024 Interpretation and review of laboratory results Normal [facility] HCG Preg Ur Qlon 12-28-2024 HCG ( test) Ql (U) Negative Normal Negative [facility] Comment on above: Order Comment: Speci men Type: URINE SPECIMEN Ordering Facility: [facility] Address: [address] [place] [address] Result Comment: This test is intended to aid in the early detection of . Very dilute urine samples, as indicated by a low specific gravity, may not contain technical sales representative levels of hCG. This test detects intact hCG only. This test does not reliably detect hCG degradation products, including free-beta subunit and beta-core fragment. Therefore, this test may show reduced reactivity in urine after 8 weeks gestation. A number of conditions other than , including trophoblastic disease and certain non-trophoblastic neoplasms cause elevated levels of hCG. As with any assay employing mouse antibodies, the possibility exists for interference by human anti-mouse antibodies (HAMA) in the specimen. The test provides a presumptive diagnosis for . Performed By: #### 2 106-3 #### [facility] CLIA [id number] [address] [place] [address] [place] HCG, QUALITATIVE, URINE PREG NANCYon 12-28-2024 HCG ( test) Ql (U) Negative Negative [place] Comment on above: This test is intende d to aid in the early detection of . Very dilute urine samples, as indicated by a low specific gravity, may not contain technical sales representative levels of hCG. This test detects intact hCG only. This test does not reliably detect hCG degradation products, including free-beta subunit and beta-core fragment. Therefore, this test may show reduced reactivity in urine after 8 weeks gestation. A number of conditions other than , including trophoblastic disease and certain non-trophoblastic neoplasms cause elevated levels of hCG. As with any assay employing mouse antibodies, the possibility exists for interference by human anti-mouse antibodies (HAMA) in the specimen. The test provides a presumptive diagnosis for . T4 Free SerPl-mCncon 025 Free T4 [Mass/Vol] 1.2 ng/dL Normal 0.8-1.5 [facility] Comment on above: Order Comment: Speci men Type: BLOOD SPECIMEN Ordering Facility: [facility] Address: [address] [place] [address] Performed By: #### 3 016-3, 3024-7 #### [facility] CLIA [id number] [address] [place] [address] [place] TSH SerPl-aCncon 12-28-2024 TSH Qn 1.970 m[IU]/L Normal 0.358-3.740 [facility] Comment on above: Order Comment: Speci men Type: BLOOD SPECIMEN Ordering Facility: [facility] Address: [address] [place] [address] Result Comment: 3rd generation ultra sensitive TSH. Performed By: #### 3 016-3, 3024-7 #### [facility] CLIA [id number] [address] [place] [address] [place] URINALYSIS, DIPSTICK ONLYon 12-28-2024 Bilirubin Ql (U) Negative Negative [facility] Clarity (Unsp spec) Clear Clear [facility] Color (U) Yellow [facility] Glucose Test strip (U) [Mass/Vol] Negative Negative [facility] Hemoglobin Ql (U) Trace Abnormal Negative [facility] Interpretation and review of laboratory results Abnormal [facility] Ketones Ql (U) Negative [facility] Leukocyte esterase Test strip Ql (U) Negative Negative [facility] Nitrite Ql (U) Negative Negative [facility] pH (U) 5.5 [pH] 5.0 - 8.0 [place] Protein (U) [Mass/Vol] Negative Negative [facility] Specific gravity (U) [Rel density] 1.025 1.005 - 1.030 [place] Urobilinogen Ql (U) Negative Negative [facility] Bilirubin Ql (U) Negative Normal Negative [facility] Comment on above: Order Comment: Speci men Type: URINE SPECIMEN Ordering Facility: [facility] Address: [address] [place] [address] Performed By: #### U A #### [facility] CLIA [id number] [address] [place] Clarity (Unsp spec) Clear Normal Clear [facility] Comment on above: Order Comment: Speci men Type: URINE SPECIMEN Ordering Facility: [facility] Address: [address] [place] [address] Performed By: #### U A #### [facility] CLIA [id number] [address] [place] [address] [place] Color (U) Yellow Normal Yellow [facility] Comment on above: Order Comment: Speci men Type: URINE SPECIMEN Ordering Facility: [facility] Address: [address] [place] [address] Performed By: #### U A #### [facility] CLIA [id number] [address] [place] [address] [place] Glucose Test strip (U) [Mass/Vol] Negative Normal Negative [facility] Comment on above: Order Comment: Speci men Type: URINE SPECIMEN Ordering Facility: [facility] Address: [address] [place] [address] Performed By: #### U A #### [facility] CLIA [id number] [address] [place] [address] [place] Hemoglobin Ql (U) Trace Abnormal Negative [facility] Comment on above: Order Comment: Speci men Type: URINE SPECIMEN Ordering Facility: [facility] Address: [address] [place] [address] Performed By: #### U A #### [facility] CLIA [id number] [address] Ketones Ql (U) Negative Normal Negative [facility] Comment on above: Order Comment: Speci men Type: URINE SPECIMEN Ordering Facility: [facility] Address: [facility] [place] [address] Performed By: #### U A #### [facility] CLIA [id number] [address] STATES [facility] Leukocyte esterase Test strip Ql (U) Negative Normal Negative [facility] Comment on above: Order Comment: Speci men Type: URINE SPECIMEN Ordering Facility: [facility] Address: [address] [place] [address] Performed By: #### U A #### [facility] CLIA [id number] [address] STATES [facility] Nitrite Ql (U) Negative Normal Negative [facility] Comment on above: Order Comment: Speci men Type: URINE SPECIMEN Ordering Facility: [facility] Address: [address] [place] [address] Performed By: #### U A #### [facility] CLIA [id number] [address] [place] [address] [place] pH (U) 5.5 [pH] Normal 5.0-8.0 [facility] Comment on above: Order Comment: Speci men Type: URINE SPECIMEN Ordering Facility: [facility] Address: [address] [place] [address] Performed By: #### U A #### [facility] CLIA [id number] [address] [place] [address] [place] Protein (U) [Mass/Vol] Negative Normal Negative [facility] Comment on above: Order Comment: Speci men Type: URINE SPECIMEN Ordering Facility: [facility] Address: [address] [place] [address] Performed By: #### U A #### [facility] CLIA [id number] [address] [place] [address] [place] Specific gravity (U) [Rel density] 1.025 Normal 1.005-1.030 [facility] Comment on above: Order Comment: Speci men Type: URINE SPECIMEN Ordering Facility: [facility] Address: [address] [place] [address] Performed By: #### U A #### [facility] CLIA [id number] [address] [place] [address] [place] Urobilinogen Ql (U) Negative Normal Negative [facility] Comment on above: Order Comment: Speci men Type: URINE SPECIMEN Ordering Facility: [facility] Address: [address] [place] [address] Performed By: #### U A #### [facility] CLIA [id number] [address] [place] [address] [place] CBC W Auto Differential pane l (Bld)on 12-24-2024 Basophils (Bld) [#/Vol] 0.07 10*3/uL Normal <0.11 [facility] Comment on above: Order Comment: Speci men Type: BLOOD SPECIMEN Ordering Facility: [facility] Address: [address] [place] [address] Performed By: #### 5 7021-8 #### [facility] CLIA [id number] [address] [place] [address] [place] Basophils/100 WBC (Bld) 0.7 % Normal [facility] Comment on above: Order Comment: Speci men Type: BLOOD SPECIMEN Ordering Facility: [facility] Address: [address] [place] [address] Performed By: #### 5 7021-8 #### [facility] CLIA [id number] [address] [place] [address] [place] Differential cell count method Nom (Bld) Auto Normal [facility] Comment on above: Order Comment: Speci men Type: BLOOD SPECIMEN Ordering Facility: [facility] Address: [address] [place] [address] Performed By: #### 5 7021-8 #### [facility] CLIA [id number] [address] [place] [address] [place] Eosinophils (Bld) [#/Vol] 0.09 10*3/uL Normal <0.46 [facility] Comment on above: Order Comment: Speci men Type: BLOOD SPECIMEN Ordering Facility: [facility] Address: [address] [place] [address] Performed By: #### 5 7021-8 #### [facility] CLIA [id number] [address] [place] [address] [place] Eosinophils/100 WBC (Bld) 0.9 % Normal [facility] Comment on above: Order Comment: Speci men Type: BLOOD SPECIMEN Ordering Facility: [facility] Address: [address] [place] [address] Performed By: #### 5 7021-8 #### [facility] CLIA [id number] [address] [place] [address] [place] Erythrocyte distribution width (RBC) [Ratio] 11.9 % Normal 11.5-15.0 [facility] Comment on above: Order Comment: Speci men Type: BLOOD SPECIMEN Ordering Facility: [facility] Address: [address] [place] [address] Performed By: #### 5 7021-8 #### [facility] CLIA [id number] [address] [place] [address] [place] Hematocrit (Bld) [Volume fraction] 38.8 % Normal 36.0-46.0 [facility] Comment on above: Order Comment: Speci men Type: BLOOD SPECIMEN Ordering Facility: [facility] Address: [address] [place] [address] Performed By: #### 5 7021-8 #### [facility] CLIA [id number] [address] [place] [address] [place] Hemoglobin (Bld) [Mass/Vol] 12.6 g/dL Normal 11.5-15.5 [facility] Comment on above: Order Comment: Speci men Type: BLOOD SPECIMEN Ordering Facility: [facility] Address: [address] [place] [address] Performed By: #### 5 7021-8 #### [facility] CLIA [id number] [address] [place] [address] [place] Immature granulocytes (Bld) [#/Vol] 0.04 10*3/uL Normal <0.10 [facility] Comment on above: Order Comment: Speci men Type: BLOOD SPECIMEN Ordering Facility: [facility] Address: [address] [place] [address] Performed By: #### 5 7021-8 #### [facility] CLIA [id number] [address] [place] [address] [place] Immature granulocytes/100 WBC (Bld) 0.4 % Normal [facility] Comment on above: Order Comment: Speci men Type: BLOOD SPECIMEN Ordering Facility: [facility] Address: [address] [place] [address] Performed By: #### 5 7021-8 #### [facility] CLIA [id number] [address] [place] [address] [place] Lymphocytes (Bld) [#/Vol] 2.43 10*3/uL Normal 1.00-4.00 [facility] Comment on above: Order Comment: Speci men Type: BLOOD SPECIMEN Ordering Facility: [facility] Address: [address] [place] [address] Performed By: #### 5 7021-8 #### [facility] CLIA [id number] [address] [place] [address] [place] Lymphocytes/100 WBC (Bld) 24.2 % Normal [facility] Comment on above: Order Comment: Speci men Type: BLOOD SPECIMEN Ordering Facility: [facility] Address: [address] [place] [address] Performed By: #### 5 7021-8 #### [facility] CLIA [id number] [address] [place] [address] [place] MCH (RBC) [Entitic mass] 28.3 pg Normal 26.0-34.0 [facility] Comment on above: Order Comment: Speci men Type: BLOOD SPECIMEN Ordering Facility: [facility] Address: [address] [place] [address] Performed By: #### 5 7021-8 #### [facility] CLIA [id number] [address] [place] [address] [place] MCHC (RBC) [Mass/Vol] 32.5 g/dL Normal 30.5-36.0 [facility] Comment on above: Order Comment: Speci men Type: BLOOD SPECIMEN Ordering Facility: [facility] Address: [address] [place] [address] Performed By: #### 5 7021-8 #### [facility] CLIA [id number] [address] [place] [address] [place] MCV (RBC) [Entitic vol] 87.2 fL Normal 80.0-100.0 [facility] Comment on above: Order Comment: Speci men Type: BLOOD SPECIMEN Ordering Facility: [facility] Address: [address] [place] [address] Performed By: #### 5 7021-8 #### [facility] CLIA [id number] [address] [place] [address] [place] Monocytes (Bld) [#/Vol] 0.65 10*3/uL Normal <0.87 [facility] Comment on above: Order Comment: Speci men Type: BLOOD SPECIMEN Ordering Facility: [facility] Address: [address] [place] [address] Performed By: #### 5 7021-8 #### [facility] CLIA [id number] [address] [place] [address] [place] Monocytes/100 WBC (Bld) 6.5 % Normal [facility] Comment on above: Order Comment: Speci men Type: BLOOD SPECIMEN Ordering Facility: [facility] Address: [address] [place] [address] Performed By: #### 5 7021-8 #### [facility] CLIA [id number] [address] [place] [address] [place] Neutrophils (Bld) [#/Vol] 6.75 10*3/uL Normal 1.45-7.50 [facility] Comment on above: Order Comment: Speci men Type: BLOOD SPECIMEN Ordering Facility: [facility] Address: [address] [place] [address] Performed By: #### 5 7021-8 #### [facility] CLIA [id number] [address] [place] [address] [place] Neutrophils/100 WBC (Bld) 67.3 % Normal [facility] Comment on above: Order Comment: Speci men Type: BLOOD SPECIMEN Ordering Facility: [facility] Address: [address] [place] [address] Performed By: #### 5 7021-8 #### [facility] CLIA [id number] [address] [place] [address] [place] Nucleated RBC (Bld) [#/Vol] 10*3/uL Normal <0.01 [facility] Comment on above: Order Comment: Speci men Type: BLOOD SPECIMEN Ordering Facility: [facility] Address: [address] [place] [address] Performed By: #### 5 7021-8 #### [facility] CLIA [id number] [address] [place] [address] [place] Nucleated RBC/100 WBC (Bld) [Ratio] 0.0 /100 WBC Normal [facility] Comment on above: Order Comment: Speci men Type: BLOOD SPECIMEN Ordering Facility: [facility] Address: [address] [place] [address] Performed By: #### 5 7021-8 #### [facility] CLIA [id number] [address] [place] [address] [place] Platelet mean volume (Bld) [Entitic vol] 8.6 fL Low 9.0-12.7 [facility] Comment on above: Order Comment: Speci men Type: BLOOD SPECIMEN Ordering Facility: [facility] Address: [address] [place] [address] Performed By: #### 5 7021-8 #### [facility] CLIA [id number] [address] [place] [address] [place] Platelets (Bld) [#/Vol] 319 10*3/uL Normal 150-400 [facility] Comment on above: Order Comment: Speci men Type: BLOOD SPECIMEN Ordering Facility: [facility] Address: [address] [place] [address] Performed By: #### 5 7021-8 #### [facility] CLIA [id number] [address] [place] [address] [place] RBC (Bld) [#/Vol] 4.45 10*6/uL Normal 3.90-5.20 [facility] Comment on above: Order Comment: Speci men Type: BLOOD SPECIMEN Ordering Facility: [facility] Address: [address] [place] [address] Performed By: #### 5 7021-8 #### [facility] CLIA [id number] [address] [place] [address] [place] WBC (Bld) [#/Vol] 10.03 10*3/uL Normal 3.70-11.00 [facility] Comment on above: Order Comment: Speci men Type: BLOOD SPECIMEN Ordering Facility: [facility] Address: [address] [place] [address] Performed By: #### 5 7021-8 #### [facility] CLIA [id number] [address] [place] [address] [place] Comprehensive metabolic 2000 panelon 12-24-2024 Albumin [Mass/Vol] 4.6 g/dL Normal 3.9-4.9 [facility] Comment on above: Order Comment: Speci men Type: BLOOD SPECIMEN Ordering Facility: [facility] Address: [address] [place] [address] Performed By: #### 2 4323-8 #### [facility] CLIA [id number] [address] [place] [address] [place] ALP [Catalytic activity/Vol] 52 U/L Normal 34-123 [facility] Comment on above: Order Comment: Speci men Type: BLOOD SPECIMEN Ordering Facility: [facility] Address: [address] [place] [address] Performed By: #### 2 4323-8 #### [facility] CLIA [id number] [address] [place] [address] [place] ALT [Catalytic activity/Vol] 9 U/L Normal 7-38 [facility] Comment on above: Order Comment: Speci men Type: BLOOD SPECIMEN Ordering Facility: [facility] Address: [address] [place] [address] Performed By: #### 2 4323-8 #### [facility] CLIA [id number] [address] [place] [address] [place] Anion gap [Moles/Vol] 12 mmol/L Normal 8-15 [facility] Comment on above: Order Comment: Speci men Type: BLOOD SPECIMEN Ordering Facility: [facility] Address: [address] [place] [address] Performed By: #### 2 4323-8 #### [facility] CLIA [id number] [address] [place] [address] [place] AST [Catalytic activity/Vol] 13 U/L Normal 13-35 [facility] Comment on above: Order Comment: Speci men Type: BLOOD SPECIMEN Ordering Facility: [facility] Address: [address] [place] [address] Performed By: #### 2 4323-8 #### [facility] CLIA [id number] [address] [place] [address] [place] Bilirubin [Mass/Vol] 0.5 mg/dL Normal 0.2-1.3 [facility] Comment on above: Order Comment: Speci men Type: BLOOD SPECIMEN Ordering Facility: [facility] Address: [address] [place] [address] Performed By: #### 2 4323-8 #### [facility] CLIA [id number] [address] [place] [address] [place] Calcium [Mass/Vol] 9.8 mg/dL Normal 8.5-10.2 [facility] Comment on above: Order Comment: Speci men Type: BLOOD SPECIMEN Ordering Facility: [facility] Address: [address] [place] [address] Performed By: #### 2 4323-8 #### [facility] CLIA [id number] [address] [place] [address] [place] Chloride [Moles/Vol] 103 mmol/L Normal 98-107 [facility] Comment on above: Order Comment: Speci men Type: BLOOD SPECIMEN Ordering Facility: [facility] Address: [address] [place] [address] Performed By: #### 2 4323-8 #### [facility] CLIA [id number] [address] [place] [address] [place] CO2 [Moles/Vol] 24 mmol/L Normal 22-30 [facility] Comment on above: Order Comment: Speci men Type: BLOOD SPECIMEN Ordering Facility: [facility] Address: [address] [place] [address] Performed By: #### 2 4323-8 #### [facility] CLIA [id number] [address] [place] [address] [place] Creatinine [Mass/Vol] 0.75 mg/dL Normal 0.58-0.96 [facility] Comment on above: Order Comment: Speci men Type: BLOOD SPECIMEN Ordering Facility: [facility] Address: [address] [place] [address] Performed By: #### 2 4323-8 #### [facility] CLIA [id number] [address] [place] [address] [place] eGFRcr SerPlBld CKD-EPI 2020 110 mL/min/1.73m??? Normal >=60 [facility] Comment on above: Order Comment: Speci men Type: BLOOD SPECIMEN Ordering Facility: [facility] Address: [address] [place] [address] Result Comment: June mated Glomerular Filtration Rate (eGFR) is calculated using the 2020 CKD-EPI creatinine equation. This equation utilizes serum creatinine, sex, and age as parameters. The creatinine assay has traceable calibration to isotope dilution-mass spectrometry. Refer to KDIGO guidelines for clinical interpretation. In patients with unstable renal function, e.g. those with acute kidney injury, the eGFR may not accurately reflect actual GFR. Performed By: #### 2 4323-8 #### [facility] CLIA [id number] [address] [place], [place] [address] [place] Glucose [Mass/Vol] 97 mg/dL Normal 74-99 [facility] Comment on above: Order Comment: Bob perry Type: BLOOD SPECIMEN Ordering Facility: [facility] Address: [address] [place] [address] Result Comment: The [place] [employer] (ADA) provides guidance for cutoff values for fasting glucose and random glucose. The ADA defines fasting as no caloric intake for at least 8 hours. Fasting plasma glucose results between 100 to 125 mg/dL indicate increased risk for diabetes (prediabetes). Fasting plasma glucose results greater than or equal to 126 mg/dL meet the criteria for diagnosis of diabetes. In the absence of unequivocal hyperglycemia, results should be confirmed by repeat testing. In a patient with classic symptoms of hyperglycemia or hyperglycemic crisis, random plasma glucose results greater than or equal to 200 mg/dL meet the criteria for diagnosis of diabetes. Reference: Standards of Medical Care in Diabetes 2016, [place] [employer]. Diabetes Care. 2016.39(Suppl 1). Performed By: #### 2 4323-8 #### [facility] CLIA [id number] [address] [place] [address] [place] Potassium [Moles/Vol] 4.0 mmol/L Normal 3.7-5.1 [facility] Comment on above: Order Comment: Bob perry Type: BLOOD SPECIMEN Ordering Facility: [facility] Address: [address] [place] [address] Performed By: #### 2 4323-8 #### [facility] CLIA [id number] [address] [place], [place] [address] [place] Protein [Mass/Vol] 7.5 g/dL Normal 6.3-8.0 [facility] Comment on above: Order Comment: Bob perry Type: BLOOD SPECIMEN [facility] [facility] Address: [address] [place] [address] Performed By: #### 2 4323-8 #### [facility] CLIA [id number] [address] [place] [address] [place] Sodium [Moles/Vol] 139 mmol/L Normal 136-144 [facility] Comment on above: Order Comment: Speci men Type: BLOOD SPECIMEN Ordering Facility: [facility] Address: [address] [place] [address] Performed By: #### 2 4323-8 #### [facility] CLIA [id number] [address] [place] [address] [place] Urea nitrogen [Mass/Vol] 10 mg/dL Normal 7-21 [facility] Comment on above: Order Comment: Speci men Type: BLOOD SPECIMEN Ordering Facility: [facility] Address: [address] [place] [address] Performed By: #### 2 4323-8 #### [facility] CLIA [id number] [address] [place] [address] [place] ECG COMPLETEon 12-24-2024 ECG COMPLETE Ventricular Rate : 6 3 BPM Atrial Rate : 63 BPM P-R Interval : 146 ms QRS Duration : 88 ms Q-T Interval : 438 ms QTC Calculation(Bazett) : 448 ms Calculated P Mathias : 58 degrees Calculated R Mathias : 13 degrees Calculated T Mathias : 57 degrees Normal sinus rhythm Normal ECG When compared with ECG of 18-Jan-2024 03:26, No significant change was found Confirmed by JENAE FERNANDEZ MD ([id number]) on 12/27/2024 5:06:07 PM NAME : SELENE LARKIN PID : [id number] : 1995 Gender : Female Race : ORD : [id number] Procedure Date : Dec 24 2024 19:41:08 Edit Date : Dec 27 2024 17:06:10 Diagnosis: Normal sinus rhythm Normal ECG When compared with ECG of 18-Jan-2024 03:26, No significant change was found Confirmed by JENAE FERNANDEZ MD ([id number]) on 12/27/2024 5:06:07 PM Test Reason : HCS Location : 3 : ED Overread By : JENAE FERNANDEZ MD Edited By : JENAE FERNANDEZ MD Referred By : , Acquired by : RD GOODSON [facility] ED Triage Noteon 12-24-2024 ED Triage Note HNO ID: [id number] Author: BERNABE DUNN APRN.HOWARD Service: Emergency Medicine Author Type: Nurse Practitioner Type: ED Triage Notes Filed: 12/24/2024 19:37 Note Text: ED TRIAGE PROVIDER NOTE Patient Name: Selene Larkin Service Date: 12/24/24 BRIEF HPI: This is a 29 year old female who presents to the ED with: vaginal bleeding for the past 2 months. Reports history of anemia. Reports she fainted yesterday and then again today. Denies abdominal pain but reports nausea, vomiting and decreased appetite. Reports fever and chills. Denies chest pain or shortness of breath. BRIEF EXAM: NAD Awake and Alert Non labored breathing No focal neurological deficits INITIAL WORKUP AND DECISION MAKING: Orders Placed This Encounter XR CHEST 1V FRONTAL PORT Comp Metabolic Panel CBC + AUTO DIFF Urinalysis w Microscopic, reflex Culture HCG QUALITATIVE URINE ECG COMPLETE The patient was seen by me in triage for a brief history and physician exam, which was obtained for triage reasons only. My exam is intended to be an initial medical screening exam for disposition within the ED with limited initial orders placed, when appropriate, to expedite care by the treating team. The remainder of testing, treatment and diagnostic plan will be assumed by the next provider who will be seeing the patient as a primary patient. See other physician/GLOBAL PRODUCT MANAGER/PA notation. SIGNATURE: Bernabe Dunn APRN.HOWARD [facility] XR ABDOMEN APon 08-24-2024 XR ABDOMEN AP ORIGINAL EXAMINATION: ONE SUPINE XRAY VIEW(S) OF THE ABDOMEN 08/24/2024 11:46 am COMPARISON: February 11, 2020 HISTORY: ORDERING SYSTEM PROVIDED HISTORY: Reason for Exam: Urgency of micturition FINDINGS: An electronic stimulator device overlies the right pelvis. Cholecystectomy clips overlie the right upper quadrant. There is a nonspecific nonobstructive bowel gas pattern. Large volume of stool overlies the colon. Correlate clinically for constipation. No pathologic calcifications are identified. Left pelvic calcifications likely reflect pelvic phleboliths and are unchanged compared with prior CT scan. IMPRESSION: 1. Nonspecific nonobstructive bowel gas pattern. 2. Large volume of stool overlies the colon. Correlate clinically for constipation. Interpreted by: Maryjane Plasencia Preliminary Report By: Maryjane Plasencia Electronically signed By Maryjane Plasencia Dictated Date: 08/24/2024 11:55:17 AM Prelim Date: 08/24/2024 11:59:09 AM Sign Date: 08/24/2024 11:59:09 AM Ordering Provider: ANTOINETTE PETTIT [facility] MR/[id number] 03-26-2024 MR/POSTOPAN2 [facility] Medical Records Department [address] [place] [address] Anesthesia Postop Eval II 03/26/24 1123 MR#: [id number] Acct: [id number] Name: SELENE LARKIN Rep #: [id number] : 1995 28 From: Christopher Jacobsen MD PCP: Dr. Abdirahman Olivera, DO Status:[facility] Y Race: C Location: [facility] Anesthesia Postop Eval I Sum Postop Eval Completion status Anesthesia document: Postop Eval 1 completed: Yes Anesthesia Postop Eval I Summary Anesthesia Postop Eval I Summary: Anesthesia Postop Eval I: Assessment Summary Airway patent Yes 03/25/24 11:10 PRODUCT DEVELOPMENT ASSISTANT.GDOTT Spontaneous unlabored Yes 03/25/24 11:10 PRODUCT DEVELOPMENT ASSISTANT.GDOTT respirations Mental status Awake,Calm 03/25/24 11:10 PRODUCT DEVELOPMENT ASSISTANT.GDOTT nausea No 03/25/24 11:10 PRODUCT DEVELOPMENT ASSISTANT.GDOTT Vomiting No 03/25/24 11:10 PRODUCT DEVELOPMENT ASSISTANT.GDOTT Anesthesia Postop Eval I: Fluid Summary Crystalloid volume administer 10 03/25/24 11:10 PRODUCT DEVELOPMENT ASSISTANT.GDOTT (ml) Colloids volume administered ( ml) Blood Product volume administered (ml) Total IV fluid infused 10 03/25/24 11:10 PRODUCT DEVELOPMENT ASSISTANT.GDOTT Anesthesia Postop Eval I: Summary Notes Anesthesia Complication No 03/25/24 11:10 PRODUCT DEVELOPMENT ASSISTANT.GDOTT Anesthesia Complication Comment: Post-operative progress note Anesthesia: Postop Eval II Evaluation Mental status: Awake and Calm Pain Level: 2 nausea: No Vomiting: No Complications Anesthesia Complication: No 03/26/24 1123 Date Christopher Jacobsen MD Cosigner Signature: Date CC: Signed Normal [facility] Discharge Instructionon Discharge Instruction [facility] Medical Records Department [address] [place] [address] Instructions for Home/Discharge Instructions 03/25/24 0950 MR#: [id number] Acct: [id number] Name: SELENE LARKIN Rep #: [id number] : 1995 28 From: Antoinette Pettit MD PCP: Dr. Abdirahman Olivera, Status:REG [facility] Discharge Instructions Diet Discharge Diet: No restrictions Activity Discharge Activity: May Shower (Friday morning.) May resume sexual activity in: 2 weeks Dressing / Incision Call your doctor if your incision/area has: Continuous Slow Oozing, Sudden Increased Bleeding, Increased Pain/ Swelling, Increased Redness, Foul Smelling Discharge and Swelling at the incision site Call your doctor if you observe: Fever of 101 or Higher, Inability to urinate and Inability to have a bowel movement Follow Up Care Please Follow Up With: Antoinette Pettit MD When: In 4 weeks, the office will call to make arrangements. Test Results: Test results from this visit will be discussed in further detail at your follow-up appointment, if applicable. Discharge Plan Admission Attending Provider: Antoinette Pettit Primary Care Provider: Abdirahman Olivera Print Language: Djiboutian Discharge Orders/Prescriptions Prescriptions: New oxycodone-acetaminophen [Percocet] 5-325 mg tablet 1 tab PO Q8H PRN (Reason: pain) 3 Days Qty: 10 0RF sulfamethoxazole-trimet hoprim 800-160 mg tablet 1 tab PO BID 3 Days Qty: 6 0RF Continued albuterol 90 mcg/actuation aerosol 90 mcg inhalation PRN PRN (Reason: shortness of breath or wheezing) ibuprofen [Advil] 200 mg tablet 200 mg PO Q8H PRN (Reason: pain) phenazopyridine [URO-PAIN] 95 mg tablet 95 mg PO QHS sulfamethoxazole-trimet hoprim 800-160 mg tablet 1 tab PO BID 3 Days Qty: 6 0RF oxycodone-acetaminophen [Percocet] 5-325 mg tablet 1 tab PO Q8H PRN (Reason: pain) 3 Days Qty: 10 0RF Referrals / Follow Up: Abdirahman Olivera DO [Primary Care Provider] - Disposition Disposition (needs filled in before D/C Order can be placed): Home, Self Care 03/25/24 09 Antoinette Pettit MD CC: Dr. Abdirahman Olivera DO Signed [facility] MR/POSTOP.ANEon 03-25-2024 MR/POSTOP.[facility] Medical Records Department [address] [place] [address] Anesthesia Postop Eval I 03/25/24 110 MR#: [id number] Acct: [id number] Name: SELENE LARKIN Rep #: [id number] : 1995 28 From: Suki George PCP: Dr. Abdirahman Olivera DO Status:REG [facility] Y Race: C Location: [place] [address] Anesthesia: Postop Eval I Current Vital Signs Temperature: 98.7 F Pulse Rate: 73 Blood Pressure: 90/49 Respiratory Rate: 16 Pulse Ox: 94 Oxygen Delivery Method: Room Air Assessment Airway patent: Yes Spontaneous unlabored respirations: Yes Mental status: Awake and Calm nausea: No Vomiting: No Anesthesia Complication: No Fluid Hydration Crystalloid volume administer (ml): 10 Total IV fluid infused: 10 Progress Note Anesthesia document: Postop Eval 1 completed: Yes 03/25/24 1110 Date Suki Medina Signature: Date CC: Signed [facility] Operative Reporton Operative Report [facility] Medical Records Department [address] [facility] [place] [address] Operative Report 03/25/24 0953 MR#: [id number] Acct: [id number] Name: SELENE LARKIN Rep #: [id number] : 1995 28 From: Antoinette Pettit MD PCP: Dr. Abdirahman Olivera, DO Status:REG [facility] Location: [place] [address] Operative Report (Standard) Operative Information Surgery/Procedure Performed: Axonics Stage 2 Surgeon: Antoinette Pettit Date of Procedure: 03/25/24 Procedure Start Time: 10:41 Procedure Stop Time: 10:56 Pre-Operative Diagnosis: urgency, frequency and nocturia Post-Operative Diagnosis: same Select all DRAINS/GRAFTS/IMPLANTS that apply: Implanted device Implanted device details: Axonics battery Type of Anesthesia: MAC Estimated Blood Loss: <5cc Specimen collected: No Description of surgery: The patient is a 28-year-old female with a successful stage I Axonics trial who presents for implantation of the battery. Informed consent was obtained. The patient was taken to the operating room and placed on the operating room table in a prone position. She was appropriately padded and secured to the table. Anesthesia monitored the head, neck, airway, IV access and vital signs throughout the case. Once anesthesia was appropriately administered, she was prepped and draped in usual sterile fashion. The area around the pocket incision site was infiltrated with lidocaine and the incision was opened using hemostats and a knife and the lead and lead extension were brought into the operative field. Using the torque wrench, the lead was removed from the lead extension which was then cut and removed from the operative field. The other side of the lead extension was removed from beneath the drapes. The pocket site was enlarged using the knife and blunt dissection as well as cautery for hemostatic control. The pocket was then irrigated with sterile water. The lead was dried and inserted into the battery where it was secured using the torque wrench. It was placed into the pocket site and impedances were appropriate. The pocket was closed with interrupted 3-0 Vicryl suture followed by 4-0 subcuticular Monocryl and skin glue. The patient was then awakened and taken to the recovery room in good condition. There were no complications during this procedure. Surgical Findings: No evidence of infection, pocket site was enlarged and battery inserted without difficulty Plant Nursery Worker medicare coordinator: No Complications Complications: No Admit VTE Documentation VTE Present on Admission: Yes VTE Mechan Device Prophylaxis: SCD's VTE Pharm Prophylaxis ordered?: No Reason prophylaxis not ordered: Treatment Not Indicated 03/25/24 1129 Cosigner Signature (if applicable): CC: Dr. Abdirahman Olivera DO; Dr. Antoinette Pettit MD Signed Normal [facility] ,Urineon 03-25-2024 Beta HCG ( test) Ql (U) Negative Normal [facility] Comment on above: Result Comment: Very dilute urine specimens, as indicated by a low specific gravity, may not contain technical sales representative levels of hCG. If is still suspected, a first morning urine specimen should be collected 48 hours later and tested. Performed By: #### L 400.7600 #### [facility] [address] [facility] [place], [address] Discharge Instructionon 02-17 Discharge Instruction [facility] Medical Records Department [address] [place] [address] Instructions for Home/Discharge Instructions 03/11/24 1059 MR#: [id number] Acct: [id number] Name: SELENE LARKIN LISA Rep #: [id number] : 1995 28 From: Antoinette Pettit MD PCP: Dr. Abdirahman Olivera DO Status:REG [facility] Discharge Instructions Diet Discharge Diet: No restrictions Activity Discharge Activity: May Not Shower May resume sexual activity in: 4 weeks Dressing / Incision Call your doctor if your incision/area has: Continuous Slow Oozing, Sudden Increased Bleeding, Increased Pain/ Swelling and Foul Smelling Discharge Call your doctor if you observe: Fever of 101 or Higher, Inability to urinate and Inability to have a bowel movement Suture Line Care: Avoid Pulling/Pushing and Avoid Pinching/Bending Change Dressing in: do not change dressing Remove Dressing in: do not remove dressing Cleanse incision/area with: Keep Dressing Clean Dry Additional Dressing/Incision Instructions:: No exercise or strenuous activity Follow Up Care Please Follow Up With: Antoinette Pettit MD When: Next week with voiding diary Test Results: Test results from this visit will be discussed in further detail at your follow-up appointment, if applicable. Discharge Plan Admission Attending Provider: Antoinette Pettit Primary Care Provider: Abdirahman Olivera Instructions Print Language: Djib[place]ian Discharge Orders/Prescriptions Prescriptions: New sulfamethoxazole-trimet hoprim 800-160 mg tablet 1 tab PO BID 3 Days Qty: 6 0RF oxycodone-acetaminophen [Percocet] 5-325 mg tablet 1 tab PO Q8H PRN (Reason: pain) 3 Days Qty: 10 0RF Continued albuterol 90 mcg/actuation aerosol 90 mcg inhalation PRN PRN (Reason: shortness of breath or wheezing) ibuprofen [Advil] 200 mg tablet 200 mg PO Q8H PRN (Reason: pain) phenazopyridine [URO-PAIN] 95 mg tablet 95 mg PO QHS Referrals / Follow Up: Abdirahman Olivera DO [Primary Care Provider] - Disposition Disposition (needs filled in before D/C Order can be placed): Home, Self Care 03/11/24 1102 Antoinette Pettit MD CC: Dr. Abdirahman Olivera DO Signed [facility] MR/POSTOP.[facility] 03-11-2024 MR/POSTOP.[facility] Medical Records Department [address] [place] [address] Anesthesia Postop Eval I 03/11/24 1214 MR#: [id number] Acct: [id number] Name: SELENE LARKIN Rep #: [id number] : 1995 28 From: Shira Doherty CRNA PCP: Dr. Abdirahman Olivera DO Status:REG [facility] Y Race: C Location: [place] [address] Anesthesia: Postop Eval I Current Vital Signs Temperature: 97.7 F Pulse Rate: 71 Blood Pressure: 105/56 Respiratory Rate: 16 Pulse Ox: 99 Oxygen Delivery Method: Room Air Assessment Airway patent: Yes Spontaneous unlabored respirations: Yes Mental status: Awake nausea: No Vomiting: No Anesthesia Complication: No Fluid Hydration Crystalloid volume administer (ml): 200 Total IV fluid infused: 200 Progress Note Anesthesia document: Postop Eval 1 completed: Yes 03/11/24 1215 Date Shira Doherty CRNA Cosigner Signature: Date CC: Signed Normal [facility] MR/[id number] 03-11-2024 MR/POSTOPAN2 [facility] Medical Records Department [address] [place] [address] Anesthesia Postop Eval II 03/11/24 1220 MR#: [id number] Acct: [id number] Name: SELENE LARKIN Rep #: [id number] : 1995 28 From: Abraham Neal MD PCP: Dr. Abdirahman Olivera, DO Status:REG [facility] Y Race: C Location: [address] Anesthesia Postop Eval I Sum Postop Eval Completion status Anesthesia document: Postop Eval 1 completed: Yes Anesthesia Postop Eval I Summary Anesthesia Postop Eval I Summary: Anesthesia Postop Eval I: Assessment Summary Airway patent Yes 03/11/24 12:15 PRODUCT DEVELOPMENT ASSISTANT.JDEF Spontaneous unlabored Yes 03/11/24 12:15 PRODUCT DEVELOPMENT ASSISTANT.JDEF respirations Mental status Awake 03/11/24 12:15 PRODUCT DEVELOPMENT ASSISTANT.JDEF nausea No 03/11/24 12:15 PRODUCT DEVELOPMENT ASSISTANT.JDEF Vomiting No 03/11/24 12:15 PRODUCT DEVELOPMENT ASSISTANT.JDEF Anesthesia Postop Eval I: Fluid Summary Crystalloid volume administer 200 03/11/24 12:15 PRODUCT DEVELOPMENT ASSISTANT.JDEF (ml) Colloids volume administered ( ml) Blood Product volume administered (ml) Total IV fluid infused 200 03/11/24 12:15 PRODUCT DEVELOPMENT ASSISTANT.JDEF Anesthesia Postop Eval I: Summary Notes Anesthesia Complication No 03/11/24 12:15 PRODUCT DEVELOPMENT ASSISTANT.JDEF Anesthesia Complication Comment: Post-operative progress note Anesthesia: Postop Eval II Evaluation Mental status: Awake Pain Level: 0 nausea: No Vomiting: No 03/11/24 1220 Date Abraham Neal MD Cosigner Signature: Date CC: Signed Normal [facility] Operative Reporton 4 Operative Report [facility] Medical Records Department [address] [place] [address] Operative Report 03/11/24 1212 MR#: [id number] Acct: [id number] Name: SELENE LARKIN Rep #: [id number] : 1995 28 From: Antoinette Pettit MD PCP: Dr. Abdirahman Olivera, DO Status:REG [facility] Location: [place] [address] Operative Report (Standard) Operative Information Surgery/Procedure Performed: Axonics stage I trial Surgeon: Antoinette Pettit Date of Procedure: 03/11/24 Procedure Start Time: 11:26 Procedure Stop Time: 12:04 Pre-Operative Diagnosis: Urinary urgency and frequency Post-Operative Diagnosis: Same Select all DRAINS/GRAFTS/IMPLANTS that apply: Implanted device Implanted device details: Axonics lead and lead extension Type of Anesthesia: MAC Estimated Blood Loss: 5 cc Specimen collected: No Description of surgery: The patient is a 28-year-old female with severe urgency and frequency of urination who has failed conservative management and now presents for Axonics stage I. Informed consent was obtained. She was taken to the operating room and placed in a prone position on the operating room table. She was appropriately padded and secured to the table. Anesthesia monitored the head, neck, airway, IV access and vital signs throughout the case. Once anesthesia was appropriately ministered, she was prepped and draped in usual sterile fashion. Using fluoroscopic evaluation, her sacral anatomy was outlined on her skin. The area overlying the insertion site for the S3 foramen needle was infiltrated with lidocaine with epinephrine on her right side. The needle was then passed through the skin and through the S3 foramen as visualized and confirmed on fluoroscopy. With stimulation she had good kar response as well as toe flexion. The obturator of the needle was removed and a guidewire was passed. The dilating device was then passed into position and the obturator was removed. The lead was then passed into its appropriate position. All 4 leads were tested with good response of kar and toe flexion without ankle rotation. The tines were then deployed and the sheath was removed. She did have oozing identified at the lead insertion site at that time. Pressure was held and the oozing did stop. The pocket site was selected and infiltrated with local anesthetic. An incision was made with a knife and the area was cauterized for hemostatic control. The lead was tunneled from the insertion site to the pocket site with the tunneling device. Lead was then cleaned and inserted into the lead extension which was then tunneled to the contralateral side without difficulty. It was then secured to the skin using a suture and Steri-Strips. The skin incisions were closed using 3-0 interrupted Vicryl followed by 4-0 Monocryl subcuticular closure. Steri-Strips were placed on the lead insertion site and Dermabond was placed on the pocket site. The lead extension was then connected to the battery. A drain sponge was placed on the patient's skin. The lead extension was coiled around the battery and an OpSite was placed over all of this. Cloth tape was placed over top of the OpSite. The patient was then awakened and taken to the recovery room in good condition. There were no complications during this procedure. Surgical Findings: Good response on all 4 leads. The lead was inserted on the patient's right side. The pocket site is on her right side. 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 Abdirahman Olivera DO; Dr. Antoinette Pettit MD Signed Normal [facility] Pelvis 1 or 2 Viewson 2023 Pelvis 1 or 2 Views [facility] Imaging Services [address] [place] [address] Pelvis 1 or 2 Views MR#: [id number] Acct: [id number] Name: SELENE LARKIN Rep #: [id number] : 1995 F 28 From: Francois Corona PCP: Dr. Abdirahman Olivera DO Status: [facility] Study: Pelvis 1 or 2 Views Date of Exam: 03/11/24 Exam# [id number] Ordering Dr: [place] [id number] STUDY: X-RAY sacrum and coccyx AP and lateral REASON FOR EXAM: Female, 28 years old. AXONICS STAGE 1 TECHNIQUE: 2 view(s) sacrum and coccyx were obtained. COMPARISON: No relevant prior comparison study available FINDINGS: 2 views of the pelvis were obtained intraoperatively on a C-arm for treatment. Images were obtained for documentation only. Fluoroscopy time: 15 seconds. Number of fluoroscopic images: 2. Radiation dose: 11.47 mGy RAD/Pelvis 1 or 2 Views IMPRESSION: Intraprocedural exam as described above. Electronically Signed: Francois Cruz MD at 14:06 EDT , CC: Dr. Abdirahman Olivera DO; Dr. Antoinette Pettit MD Phone Representative: Signed Normal [facility] ,Urineon 03-11-2024 Beta HCG ( test) Ql (U) Negative Normal [facility] Comment on above: Result Comment: Very dilute urine specimens, as indicated by a low specific gravity, may not contain technical sales representative levels of hCG. If is still suspected, a first morning urine specimen should be collected 48 hours later and tested. Performed By: #### L 400.7600 #### [facility] [place], [address] [id number] 02-10-2024 Factor V Leiden Note Normal [facility] Comment on above: Result Comment: TEST S RESULT FLAG UNITS REF RANGE LAB Factor V Leiden Note 01 Result: c.1601G>A (p.Ggw800Wlc) - Not Detected This result is not associated with an increased risk for venous thromboembolism. See Additional Clinical Information and Comments. Comment 01 Additional Clinical Information: Venous thromboembolism is a multifactorial disease influenced by genetic, environmental, and circumstantial risk factors. The c.1601G>A (p. [id number]) variant in the F5 gene, commonly referred to as Factor V Leiden, is a genetic risk factor for venous thromboembolism. Heterozygous carriers of this variant have a 6- to 8-fold increased risk for venous thromboembolism. Individuals homozygous for this variant (ie, with a copy of the variant on each chromosome) have an approximately 80-fold increased risk for venous thromboembolism. Individuals who carry both a c.*97G>A variant in the F2 gene and Factor V Leiden have an approximately 20-fold increased risk for venous thromboembolism. Risks are likely to be even higher in more complex genotype combinations involving the F2 c.*97G>A variant and Factor V Leiden (PMID: [id number]). Additional risk factors include but are not limited to: deficiency of protein C, protein S, or antithrombin III, age, male sex, personal or family history of deep vein thromboembolism, smoking, surgery, prolonged immobilization, malignant neoplasm, tamoxifen treatment, raloxifene treatment, oral contraceptive use, hormone replacement therapy, and . Management of thrombotic risk and thrombotic events should follow established guidelines and fit the clinical circumstance. This result cannot predict the occurrence or recurrence of a thrombotic event. Comment: Genetic counseling is recommended to discuss the potential clinical implications of positive results, as well as recommendations for testing family members. Genetic Coordinators are available for health care providers to discuss results at [phone] [place] ([phone]). Test Details: Variant Analyzed: c.1601G>A (p. [id number]), referred to as Factor V Leiden Methods/Limitations: DNA analysis of the F5 gene (NM_[id number]) was performed by PCR amplification followed by restriction enzyme analysis. The diagnostic sensitivity is >99%. Results must be combined with clinical information for the most accurate interpretation. Molecular-based testing is highly accurate, but as in any laboratory test, diagnostic errors may occur. False positive or false negative results may occur for reasons that include genetic variants, blood transfusions, bone marrow transplantation, somatic or tissue-specific mosaicism, mislabeled samples, or erroneous representation of family relationships. This test was developed and its performance characteristics determined by [employer]. It has not been cleared or approved by the Food and Drug Administration. References: Silvio S, Marcie ALLEN, Anup R, Hakan WW, Irvin JH; [employer] Professional Practice and Guidelines Committee. Addendum: [employer] consensus statement on factor V Leiden mutation testing. Joie Med. 2020Jul 21. doi: 10.1038/z82863-636-71529-o. PMID: 71166819. Albert KIMBLE. Factor V Leiden Thrombophilia. 1998September 29 (Updated 2017May 22). In: Garfield MP, Bradly HH, Dianne RA, et al., editors. Kelsea(R) (Internet). [place]): [facility], [place]; [phone]. Available from: https://www.ncbi.nlm.nih.gov/books/EQB7608/ Carlos Eduardo S, Marcie ALLEN, Иван X, Redd B, Leobardo EB, Dionna P, Lindsey CS; [employer] Laboratory [employer] Committee. Venous thromboembolism laboratory testing (factor V Leiden and factor II c.*97G>A), 2018 update: a technical standard of the [employer] ([employer]). Joie Med. 2018 Apr;20(12):4302-9965. doi: 10.1038/q23889-257-4554-g. Ep2017Feb 20. PMID: 79283509. Reviewed By: Note 01 Technical Component performed at [facility] RT Professional Component performed by: [employer] Dhruv Morrison, Ph.D., [facility] Director, Molecular Genetics [address] [facility] FLAG LEGEND: L-Low Normal,H-High Normal,LL-Alert Low,HH-Alert High <-Panic Low,>-Panic High,A-Abnormal,AA-Critical Abnormal Performed at: 01 TG [facility] [place] [address] [place], [place] [address] Karrie Rodrigues [facility], Performed At: TG [facility] [place] [address] [employer] [place], [place] [id number] Lilia Yoon [facility] Ph:[phone] Performed By: #### C FELA, [id number], ADIFF, ANEU, FE #### [address] [address] .Auto Diffon 02-02-2024 Basophil, Absolute 0.1 10 3/mcL Normal 0.0-0.3 DORIS MAN MASSILLON Comment on above: Performed By: #### Conchita CHAHAL, [id number], ADIFF, ANEU, FE #### [address] [address] Basophils/100 WBC (Bld) 0.8 % Normal 0.0-2.5 BARBARA MASSILLON Comment on above: Performed By: #### Conchita CHAHAL, 665820, ADIFF, ANEU, FE #### [address] [address] Eosinophil, Absolute 0.1 10 3/mcL Normal 0.0-0.7 AU LTMAN MASSILL[facility] Comment on above: Performed By: #### Conchita CHAHAL, 852677, ADIFF, ANEU, FE #### [address] [address] Eosinophils/100 WBC (Bld) 1.8 % Normal 0.0-6.0 BARBARA MASSILLON Comment on above: Performed By: #### Conchita CHAHAL, 490386, ADIFF, ANEU, FE #### [address] [address] Lymphocyte, Absolute 2.3 10 3/mcL Normal 0.9-4.3 AU LTMAN MASSILLON Comment on above: Performed By: #### Conchita CHAHAL, 840656, ADIFF, ANEU, FE #### [address] [address] Lymphocytes/100 WBC (Bld) 36.5 % Normal 20.0-40.0 BARBARA MASSILLON Comment on above: Performed By: #### C BC, 681519, ADIFF, ANEU, FE #### [place] [address] Monocyte, Absolute 0.5 10 3/mcL Normal 0.1-1.4 DORIS MAN MASSILLON Comment on above: Performed By: #### C BC, 797386, ADIFF, ANEU, FE #### [place] [id number] Monocytes/100 WBC (Bld) 7.7 % Normal 2.0-13.0 BARBARA MASSILLON Comment on above: Performed By: #### C BC, 497754, ADIFF, ANEU, FE #### [place] [id number] Neutrophils/100 WBC (Bld) 53.2 % Normal 50.0-75.0 BARBARA MASSILLON Comment on above: Performed By: #### C BC, 191241, ADIFF, ANEU, FE #### [address] [address] .NEUABSon 02-02-2024 Neutrophil, Absolute 3.4 10 3/mcL Normal 2.3-8.1 AU LTMAN MASSILL[facility] Comment on above: Performed By: #### C BC, 542495, ADIFF, ANEU, FE #### [address] [address] CBCon 02-02-2024 Erythrocyte distribution width (RBC) [Ratio] 12.7 % Normal 11.5-15.5 BARBARA MASSILLON Comment on above: Performed By: #### C BC, 772429, ADIFF, ANEU, FE #### [place] [address] Hematocrit (Bld) [Volume fraction] 36.3 % Normal 34.0-46.0 BARBARA MASSILLON Comment on above: Performed By: #### C BC, 471129, ADIFF, ANEU, FE #### [facility] [address] [place], [place] [address] Hgb 12.1 G/dL Normal 12.0-16.0 BARBARA MASSILLON Comment on above: Performed By: #### C FELA, 941567, MACARIO, ANEU, FE #### [place] [address] MCH (RBC) [Entitic mass] 28.5 pg Normal 27.0-33.0 BARBARA MASSILLON Comment on above: Performed By: #### C FELA, 401884, MACARIO, ANEU, FE #### [place] [address] MCHC 33.3 G/dL Normal 32.0-36.0 BARBARA MASSILLON Comment on above: Performed By: #### C FELA, 983485, MACARIO, ANEU, FE #### [place] [address] MCV (RBC) [Entitic vol] 85.6 fL Normal 80.0-99.0 BARBARA MASSILLON Comment on above: Performed By: #### C FELA, 655971, MACARIO, ANEU, FE #### [place] [address] Platelet 332 10 3/mcL Normal 150-450 BARBARA MASSILLON Comment on above: Performed By: #### C FELA, 751586, MACARIO, ANEU, FE #### [place] [address] Platelet mean volume (Bld) [Entitic vol] 7.5 fL Normal 6.6-10.5 BARBARA MASSILLON Comment on above: Performed By: #### C FELA, 912178, MACARIO, ANEU, FE #### [place] [address] RBC 4.24 10 6/mcL Normal 4.10-5.30 BARBARA MASSILLON Comment on above: Performed By: #### C FELA, 871598, MACARIO, ANEU, FE #### [place] [id number] WBC 6.4 10 3/mcL Normal 4.5-10.8 BARBARA MASSILLON Comment on above: Performed By: #### C FELA, 718841, MACARIO, ANEU, FE #### [address] [address] FEon 02-02-2024 Iron [Mass/Vol] 88 ug/dL Normal 50-170 BARBARA MONAHAN Comment on above: Performed By: #### C BC, 321991, ADCHAD, ANEU, FE #### [address] [address] CBC W Auto Differential pane l (Bld)on 01-18-2024 Basophils (Bld) [#/Vol] 0.06 10*3/uL Normal <0.11 [facility] Comment on above: Order Comment: Speci men Type: BLOOD SPECIMEN Ordering Facility: [facility] Address: [address] [place] [address] Performed By: #### 5 7021-8 #### [facility] CLIA [id number] [address] [place] [address] [place] Basophils/100 WBC (Bld) 0.8 % Normal [facility] Comment on above: Order Comment: Speci men Type: BLOOD SPECIMEN Ordering Facility: [facility] Address: [address] [place] [address] Performed By: #### 5 7021-8 #### [facility] CLIA [id number] [address] [place] [address] [place] Differential cell count method Nom (Bld) Auto Normal [facility] Comment on above: Order Comment: Speci men Type: BLOOD SPECIMEN Ordering Facility: [facility] Address: [address] [place] [address] Performed By: #### 5 7021-8 #### [facility] CLIA [id number] [address] [place] [address] [place] Eosinophils (Bld) [#/Vol] 0.15 10*3/uL Normal <0.46 [facility] Comment on above: Order Comment: Speci men Type: BLOOD SPECIMEN Ordering Facility: [facility] Address: [address] [place] [address] Performed By: #### 5 7021-8 #### [facility] CLIA [id number] [address] [place] [address] [place] Eosinophils/100 WBC (Bld) 2.0 % Normal [facility] Comment on above: Order Comment: Speci men Type: BLOOD SPECIMEN Ordering Facility: [facility] Address: [address] [place] [address] Performed By: #### 5 7021-8 #### [facility] CLIA [id number] [address] [place] [address] [place] Erythrocyte distribution width (RBC) [Ratio] 11.9 % Normal 11.5-15.0 [facility] Comment on above: Order Comment: Speci men Type: BLOOD SPECIMEN Ordering Facility: [facility] Address: [address] [place] [address] Performed By: #### 5 7021-8 #### [facility] CLIA [id number] [address] [place] [address] [place] Hematocrit (Bld) [Volume fraction] 37.0 % Normal 36.0-46.0 [facility] Comment on above: Order Comment: Speci men Type: BLOOD SPECIMEN Ordering Facility: [facility] Address: [address] [place] [address] Performed By: #### 5 7021-8 #### [facility] CLIA [id number] [address] [place] [address] [place] Hemoglobin (Bld) [Mass/Vol] 12.1 g/dL Normal 11.5-15.5 [facility] Comment on above: Order Comment: Speci men Type: BLOOD SPECIMEN Ordering Facility: [facility] Address: [address] [place] [address] Performed By: #### 5 7021-8 #### [facility] CLIA [id number] [address] [place] [address] [place] Immature granulocytes (Bld) [#/Vol] 0.03 10*3/uL Normal <0.10 [facility] Comment on above: Order Comment: Speci men Type: BLOOD SPECIMEN Ordering Facility: [facility] Address: [address] [place] [address] Performed By: #### 5 7021-8 #### [facility] CLIA [id number] [address] [place] [address] [place] Immature granulocytes/100 WBC (Bld) 0.4 % Normal [facility] Comment on above: Order Comment: Speci men Type: BLOOD SPECIMEN Ordering Facility: [facility] Address: [address] [place] [address] Performed By: #### 5 7021-8 #### [facility] CLIA [id number] [address] [place] [address] [place] Lymphocytes (Bld) [#/Vol] 3.60 10*3/uL Normal 1.00-4.00 [facility] Comment on above: Order Comment: Speci men Type: BLOOD SPECIMEN Ordering Facility: [facility] Address: [address] [place] [address] Performed By: #### 5 7021-8 #### [facility] CLIA [id number] [address] [place] [address] [place] Lymphocytes/100 WBC (Bld) 47.2 % Normal [facility] Comment on above: Order Comment: Speci men Type: BLOOD SPECIMEN Ordering Facility: [facility] Address: [address] [place] [address] Performed By: #### 5 7021-8 #### [facility] CLIA [id number] [address] [place] [address] [place] MCH (RBC) [Entitic mass] 28.1 pg Normal 26.0-34.0 [facility] Comment on above: Order Comment: Speci men Type: BLOOD SPECIMEN Ordering Facility: [facility] Address: [address] [place] [address] Performed By: #### 5 7021-8 #### [facility] CLIA [id number] [address] [place] [address] [place] MCHC (RBC) [Mass/Vol] 32.7 g/dL Normal 30.5-36.0 [facility] Comment on above: Order Comment: Speci men Type: BLOOD SPECIMEN Ordering Facility: [facility] Address: [address] [place] [address] Performed By: #### 5 7021-8 #### [facility] CLIA [id number] [address] [place] [address] [place] MCV (RBC) [Entitic vol] 85.8 fL Normal 80.0-100.0 [facility] Comment on above: Order Comment: Speci men Type: BLOOD SPECIMEN Ordering Facility: [facility] Address: [address] [place] [address] Performed By: #### 5 7021-8 #### [facility] CLIA [id number] [address] [place] [address] [place] Monocytes (Bld) [#/Vol] 0.63 10*3/uL Normal <0.87 [facility] Comment on above: Order Comment: Speci men Type: BLOOD SPECIMEN Ordering Facility: [facility] Address: [address] [place] [address] Performed By: #### 5 7021-8 #### [facility] CLIA [id number] [address] [place] [address] [place] Monocytes/100 WBC (Bld) 8.3 % Normal [facility] Comment on above: Order Comment: Speci men Type: BLOOD SPECIMEN Ordering Facility: [facility] Address: [address] [place] [address] Performed By: #### 5 7021-8 #### [facility] CLIA [id number] [address] [place] [address] [place] Neutrophils (Bld) [#/Vol] 3.16 10*3/uL Normal 1.45-7.50 [facility] Comment on above: Order Comment: Speci men Type: BLOOD SPECIMEN Ordering Facility: [facility] Address: [address] [place] [address] Performed By: #### 5 7021-8 #### [facility] CLIA [id number] [address] [place] [address] [place] Neutrophils/100 WBC (Bld) 41.3 % Normal [facility] Comment on above: Order Comment: Speci men Type: BLOOD SPECIMEN Ordering Facility: [facility] Address: [address] [place] [address] Performed By: #### 5 7021-8 #### [facility] CLIA [id number] [address] [place] [address] [place] Nucleated RBC (Bld) [#/Vol] 10*3/uL Normal <0.01 [facility] Comment on above: Order Comment: Speci men Type: BLOOD SPECIMEN Ordering Facility: [facility] Address: [address] [place] [address] Performed By: #### 5 7021-8 #### [facility] CLIA [id number] [address] [place] [address] [place] Nucleated RBC/100 WBC (Bld) [Ratio] 0.0 /100 WBC Normal [facility] Comment on above: Order Comment: Speci men Type: BLOOD SPECIMEN Ordering Facility: [facility] Address: [address] [place] [address] Performed By: #### 5 7021-8 #### [facility] CLIA [id number] [address] [place] [address] [place] Platelet mean volume (Bld) [Entitic vol] 8.6 fL Low 9.0-12.7 [facility] Comment on above: Order Comment: Speci men Type: BLOOD SPECIMEN Ordering Facility: [facility] Address: [address] [place] [address] Performed By: #### 5 7021-8 #### [facility] CLIA [id number] [address] [place] [address] [place] Platelets (Bld) [#/Vol] 338 10*3/uL Normal 150-400 [facility] Comment on above: Order Comment: Speci men Type: BLOOD SPECIMEN Ordering Facility: [facility] Address: [address] [place] [address] Performed By: #### 5 7021-8 #### [facility] CLIA [id number] [address] [place] [address] [place] RBC (Bld) [#/Vol] 4.31 10*6/uL Normal 3.90-5.20 [facility] Comment on above: Order Comment: Speci men Type: BLOOD SPECIMEN Ordering Facility: [facility] Address: [place] [address] Performed By: #### 5 7021-8 #### [facility] CLIA [id number] [address] [place] [address] [place] WBC (Bld) [#/Vol] 7.63 10*3/uL Normal 3.70-11.00 [facility] Comment on above: Order Comment: Speci men Type: BLOOD SPECIMEN Ordering Facility: [facility] Address: [place] [id number] Performed By: #### 5 7021-8 #### [facility] CLIA [id number] [address] [place] [address] [place] [address] [address] BRAIN WO IVCONon 01-18-[address] BRAIN WO IVCON * * *Final Report* * * DATE OF EXAM: Jan 18 2024 3:55AM [facility] [place] 0504 - CT BRAIN WO IVCON / PROCEDURE REASON: Headache * * * * Physician Interpretation * * * * EXAMINATION: CT BRAIN WO IVCON CLINICAL HISTORY: Headache. Double vision and dizziness. TECHNIQUE: Serial axial images without IV contrast were obtained from the vertex to the foramen magnum. MQ: CTBWO_3 CT Radiation dose: Integrated Dose-Length Product (DLP) for this visit = 704.1 mGy*cm CT Dose Reduction Employed: No dose reduction techniques were required COMPARISON: None. RESULT: Post-operative change: None. Acute change: No evidence of an acute infarct or other acute parenchymal process. Hemorrhage: No evidence of acute intracranial hemorrhage. ECASS hemorrhagic transformation score: Not Applicable Mass Lesion / Mass Effect: There is no evidence of an intracranial mass or extraaxial fluid collection. No significant mass effect. Chronic change: None apparent. Parenchyma: There is no significant volume loss. The brain parenchyma is otherwise within normal limits for age. Ventricles: The ventricles are within normal limits of size and configuration for age. Paranasal sinuses and skull base: The visualized paranasal sinuses are grossly clear. The skull base and imaged soft tissues are unremarkable. Localizer images: No significant findings. IMPRESSION: No acute intracranial abnormality. Phone Representative: KATHYA Transcribe Date/Time: Jan 18 2024 3:55A Dictated by : RAHAT PULIDO MD This examination was interpreted and the report reviewed and electronically signed by: RAHAT PULIDO MD on Jan 18 2024 3:59AM EST [id number] Normal [facility] Comprehensive metabolic 2000 panelon 01-18-2024 Albumin [Mass/Vol] 4.6 g/dL Normal 3.9-4.9 [facility] Comment on above: Order Comment: Speci men Type: BLOOD SPECIMEN Ordering Facility: [facility] Address: [address] [place] [address] Performed By: #### 2 4323-8 #### [facility] CLIA [id number] [address] [place] [address] [place] ALP [Catalytic activity/Vol] 54 U/L Normal 34-123 [facility] Comment on above: Order Comment: Speci men Type: BLOOD SPECIMEN Ordering Facility: [facility] Address: [address] [place] [address] Performed By: #### 2 4323-8 #### [facility] CLIA [id number] [address] [place] [address] [place] ALT [Catalytic activity/Vol] 9 U/L Normal 7-38 [facility] Comment on above: Order Comment: Speci men Type: BLOOD SPECIMEN Ordering Facility: [facility] Address: [address] [place] [address] Performed By: #### 2 4323-8 #### [facility] CLIA [id number] [address] [place] [address] [place] Anion gap [Moles/Vol] 6 mmol/L Low 8-15 [facility] Comment on above: Order Comment: Speci men Type: BLOOD SPECIMEN Ordering Facility: [facility] Address: [address] [place] [address] Performed By: #### 2 4323-8 #### [facility] CLIA [id number] [address] [place] [address] [place] AST [Catalytic activity/Vol] 12 U/L Low 13-35 [facility] Comment on above: Order Comment: Speci men Type: BLOOD SPECIMEN Ordering Facility: [facility] Address: [address] [place] [address] Performed By: #### 2 4323-8 #### [facility] CLIA [id number] [address] [place] [address] [place] Bilirubin [Mass/Vol] 0.3 mg/dL Normal 0.2-1.3 [facility] Comment on above: Order Comment: Speci men Type: BLOOD SPECIMEN Ordering Facility: [facility] Address: [address] [place] [address] Performed By: #### 2 4323-8 #### [facility] CLIA [id number] [address] [place] [address] [place] Calcium [Mass/Vol] 9.0 mg/dL Normal 8.5-10.2 [facility] Comment on above: Order Comment: Speci men Type: BLOOD SPECIMEN Ordering Facility: [facility] Address: [address] [place] [address] Performed By: #### 2 4323-8 #### [facility] CLIA [id number] [address] [place] [address] [place] Chloride [Moles/Vol] 106 mmol/L Normal 98-107 [facility] Comment on above: Order Comment: Speci men Type: BLOOD SPECIMEN Ordering Facility: [facility] Address: [address] [place] [address] Performed By: #### 2 4323-8 #### [facility] CLIA [id number] [address] [place] [address] [place] CO2 [Moles/Vol] 26 mmol/L Normal 22-30 [facility] Comment on above: Order Comment: Speci men Type: BLOOD SPECIMEN Ordering Facility: [facility] Address: [address] [place] [address] Performed By: #### 2 4323-8 #### [facility] CLIA [id number] [address] [place], [place] [address] [place] Creatinine [Mass/Vol] 0.71 mg/dL Normal 0.58-0.96 [facility] Comment on above: Order Comment: Bob perry Type: BLOOD SPECIMEN Ordering Facility: [facility] Address: [address] [place] [address] Performed By: #### 2 4323-8 #### [facility] CLIA [id number] [address] [place] [address] [place] Creatinine and Glomerular filtration rate.predicted panel (S/P/Bld) 118 mL/min/1.73m??? Normal >=60 [facility] Comment on above: Order Comment: Bob perry Type: BLOOD SPECIMEN Ordering Facility: [facility] Address: [address] [place] [address] Result Comment: June mated Glomerular Filtration Rate (eGFR) is calculated using the 2020 CKD-EPI creatinine equation. This equation utilizes serum creatinine, sex, and age as parameters. The creatinine assay has traceable calibration to isotope dilution-mass spectrometry. Refer to KDIGO guidelines for clinical interpretation. In patients with unstable renal function, e.g. those with acute kidney injury, the eGFR may not accurately reflect actual GFR. Performed By: #### 2 4323-8 #### [facility] CLIA [id number] [address] [place] [address] [place] Glucose [Mass/Vol] 99 mg/dL Normal 74-99 [facility] Comment on above: Order Comment: Bob perry Type: BLOOD SPECIMEN Ordering Facility: [facility] Address: [address] [place] [address] Result Comment: The [place] [employer] (ADA) provides guidance for cutoff values for fasting glucose and random glucose. The ADA defines fasting as no caloric intake for at least 8 hours. Fasting plasma glucose results between 100 to 125 mg/dL indicate increased risk for diabetes (prediabetes). Fasting plasma glucose results greater than or equal to 126 mg/dL meet the criteria for diagnosis of diabetes. In the absence of unequivocal hyperglycemia, results should be confirmed by repeat testing. In a patient with classic symptoms of hyperglycemia or hyperglycemic crisis, random plasma glucose results greater than or equal to 200 mg/dL meet the criteria for diagnosis of diabetes. Reference: Standards of Medical Care in Diabetes 2016, [place] [employer]. Diabetes Care. 2016.39(Suppl 1). Performed By: #### 2 4323-8 #### [facility] CLIA [id number] [address] [place] [address] [place] Potassium [Moles/Vol] 3.7 mmol/L Normal 3.7-5.1 [facility] Comment on above: Order Comment: Speci men Type: BLOOD SPECIMEN Ordering Facility: [facility] Address: [address] [place] [address] Performed By: #### 2 4323-8 #### [facility] CLIA [id number] [address] [place] [address] [place] Protein [Mass/Vol] 7.2 g/dL Normal 6.3-8.0 [facility] Comment on above: Order Comment: Speci men Type: BLOOD SPECIMEN Ordering Facility: [facility] Address: [address] [place] [address] Performed By: #### 2 4323-8 #### [facility] CLIA [id number] [address] [place] [address] [place] Sodium [Moles/Vol] 138 mmol/L Normal 136-144 [facility] Comment on above: Order Comment: Speci men Type: BLOOD SPECIMEN Ordering Facility: [facility] Address: [address] [place] [address] Performed By: #### 2 4323-8 #### [facility] CLIA [id number] [address] [place] [address] [place] Urea nitrogen [Mass/Vol] 11 mg/dL Normal 7-21 [facility] Comment on above: Order Comment: Speci men Type: BLOOD SPECIMEN Ordering Facility: [facility] Address: [address] [place] [address] Performed By: #### 2 4323-8 #### [facility] CLIA [id number] [address] [place] [address] [place] ECG COMPLETEon 01-18-2024 ECG COMPLETE Ventricular Rate : 5 7 BPM Atrial Rate : 57 BPM P-R Interval : 142 ms QRS Duration : 88 ms Q-T Interval : 460 ms QTC Calculation(Bazett) : 447 ms Calculated P Mathias : -20 degrees Calculated R Mathias : -4 degrees Calculated T Mathias : 55 degrees Sinus bradycardia Nonspecific T wave abnormality Abnormal ECG No previous ECGs available Confirmed by AMITA RUCKER MD ([id number]) on 01/20/2024 11:17:45 AM NAME : SELENE LARKIN PID : [id number] : 1995 Gender : Female Race : ORD : [id number] Procedure Date : Jan 18 2024 03:26:17 Edit Date : Jan 20 2024 12:19:24 Diagnosis: Sinus bradycardia Nonspecific T wave abnormality Abnormal ECG No previous ECGs available Confirmed by AMITA RUCKER MD ([id number]) on 01/20/2024 11:17:45 AM Test Reason : HCS Location : 3 : ED ED Overread By : AMITA RUCKER MD Edited By : AMITA RUCKER MD Referred By : , Acquired by : SUSI ALCALA [facility] ED NOTEon 01-18-2024 ED NOTE HNO ID: [id number] Author: SAW LAND HUC Service: ? Author Type: ? Type: ED Notes Filed: 01/18/2024 03:44 Note Text: POISON CONTROL CALLED TO SPEAK WITH DR SHAFER. [facility] ED NOTE HNO ID: [id number] Author: FREDY HANSEN RN Service: Nursing Author Type: Registered Nurse Type: ED Notes Filed: 01/18/2024 01:59 Note Text: Pt received to ED 8 from triage with c/o dizziness, headache, double vision, and back pain that started today after having a botox injection in her bladder on 01/07. [facility] ED PROV NOTEon 01-18-2024 ED PROV NOTE HNO ID: [id number] Author: JACQUES SHAFER MD Service: ? Author Type: Physician Type: ED Provider Notes Filed: 01/18/2024 05:03 Note Text: ED Provider Note Patient Name: Selene Larkin : 1995 SERVICE DATE: 01/18/24 History Patient presents with: BLADDER PAIN Headache Dizziness DOUBLE VISION: C/O BOTOX INJECTION IN THE BLADDER 01/07, FRIDAY STARTED WITH BLADDER PAIN, RT EYE DOUBLE VISION AND DIZZINESS. This patient is a 28-year-old female who is concerned she may have symptoms of botulism. Patient has a history of interstitial cystitis. On January 07 she had Botox injection of the bladder. She states she has had some dizziness since that time. She complains of intermittent blurred vision in the right eye. She complains of a headache. No weakness. No paresthesias. No other illness such as fever cough vomiting or diarrhea. Although nursing note reports double vision only reports intermittent blurred vision to me. She is spoke to her urologist about her symptoms and it was recommended that she be evaluated in the emergency department. No history of migraines. PAST MEDICAL HISTORY No date: Anemia No date: Asperger's disorder No date: Asthma No date: depression No date: Trauma PAST SURGICAL HISTORY 11/02/2019: SECTION HX; N/A 05/30/2021: DANDC, DIAG AND/OR THERAPEUTIC 07/02/2017: REMOVAL GALLBLADDER 02/04/2022: TOOTH EXTRACTION; Bilateral No family history on file. Social History Tobacco Use - Smoking status: Not on file - Smokeless tobacco: Not on file Substance and Sexual Activity - Alcohol use: Not on file - Drug use: Not on file - Sexual activity: Not on file ALLERGIES Allergen Reactions - Penicillin G Swelling Review of Systems Physical Exam Vitals [01/18/24 0134] BP Pulse Temp Temp src Resp SpO2 Weight Height 125/88 71 36.7 ?C (98.1 ?F) Oral 20 98 % 71.5 kg (157 lb 10.1 oz) 1.6 m (5' 3) Physical Exam Vitals and nursing note reviewed. HENT: Head: Normocephalic and atraumatic. Eyes: Extraocular Movements: Extraocular movements intact. Pupils: Pupils are equal, round, and reactive to light. Cardiovascular: Rate and Rhythm: Normal rate and regular rhythm. Pulmonary: Effort: Pulmonary effort is normal. Breath sounds: Normal breath sounds. Abdominal: General: There is no distension. Palpations: Abdomen is soft. Tenderness: There is no abdominal tenderness. Musculoskeletal: General: Normal range of motion. Neurological: Mental Status: She is alert. Comments: Alert and oriented without any focal or lateralizing neurological deficit. Patient has normal strength and sensation of the upper and lower extremities. No weakness. Patient has no cranial nerve palsy. Normal extraocular motion. Diagnostic Testing ED Labs Ordered and Reviewed COMPLETE BLOOD COUNT AND DIFFERENTIAL - Abnormal; Notable for the following components: Result Value Ref Range MPV 8.6 (*) 9.0 - 12.7 fL All other components within normal limits COMPREHENSIVE METABOLIC PANEL - Abnormal; Notable for the following components: AST 12 (*) 13 - 35 U/L Anion Gap 6 (*) 8 - 15 mmol/L All other components within normal limits URINALYSIS WITH MICROSCOPIC, REFLEX CULTURE - Abnormal; Notable for the following components: Clarity Cloudy (*) Clear Hemoglobin/Blood,Ur 3+ (*) Negative Leuk Esterase Trace (*) Negative RBC, Urine >25 /HPF (*) 0-3 /HPF All other components within normal limits Procedures ED Course / Clinical Impression Clinical Impressions as of 01/18/24 0505 Acute nonintractable headache, unspecified headache type Blurred vision, right eye MDM / Disposition / Plan Patient's presentation is not highly suggestive of botulism. Patient does not have cranial nerve deficit. She has a normal neurological exam. Patient has no weakness. No respiratory symptoms. Patient does complain of a headache visual changes dizziness. This may be more migraine. Brain CT shows no acute abnormality. EKG shows sinus bradycardia at a rate of 57. I explained to the patient that I do not believe her presentation is suggestive of botulism. I spoke to poison control. I spoke to the acquisitions analyst. They also do not feel that this is a typical presentation of botulism. Patient is quite adamant and requesting that she be tested. We have attempted to contact the [place] [facility]. They are unavailable due to the holiday weekend. I did speak to the [facility] emergency operations center. I spoke with Dr. Salmon with the botulism team and after discussing the case and presentation we do not feel that this patient meets criteria for release of antitoxin. Given the patient has very low suspicion from multiple physicians and release of antitoxin from [facility] is not indicated there is no indication to admit this patient. The [facility] was given the information for the urologist office. Patient discharged. Note that while patient (more content not included)... Normal [facility] HCG Preg Ur Qlon 01-18-2024 HCG ( test) Ql (U) Negative Normal Negative [facility] Comment on above: Order Comment: Speci men Type: URINE SPECIMEN Ordering Facility: [facility] Address: [address] [place] [address] Result Comment: This test is intended to aid in the early detection of . Very dilute urine samples, as indicated by a low specific gravity, may not contain technical sales representative levels of hCG. This test detects intact hCG only. This test does not reliably detect hCG degradation products, including free-beta subunit and beta-core fragment. Therefore, this test may show reduced reactivity in urine after 8 weeks gestation. A number of conditions other than , including trophoblastic disease and certain non-trophoblastic neoplasms cause elevated levels of hCG. As with any assay employing mouse antibodies, the possibility exists for interference by human anti-mouse antibodies (HAMA) in the specimen. The test provides a presumptive diagnosis for . Performed By: #### 2 106-3 #### [facility] CLIA [id number] [address] [place] [address] [place] Urinalysis complete panel (U )on 01-18-2024 Bilirubin Ql (U) Negative Normal Negative [facility] Comment on above: Order Comment: Speci men Type: URINE SPECIMEN Ordering Facility: [facility] Address: [address] [place] [address] Performed By: #### 2 4356-8 #### [facility] CLIA [id number] [address] [place] [address] [place] Clarity (Unsp spec) Cloudy Abnormal Clear [facility] Comment on above: Order Comment: Speci men Type: URINE SPECIMEN Ordering Facility: [facility] Address: [address] [place] [address] Performed By: #### 2 4356-8 #### [facility] CLIA [id number] [address] [place] [address] [place] Color (U) Yellow Normal Yellow [facility] Comment on above: Order Comment: Speci men Type: URINE SPECIMEN Ordering Facility: [facility] Address: [address] [place] [address] Performed By: #### 2 4356-8 #### [facility] CLIA [id number] [address] [place] [address] [place] Epithelial cells LM.HPF (Urine sed) [#/Area] Moderate Normal [facility] Comment on above: Order Comment: Speci men Type: URINE SPECIMEN Ordering Facility: [facility] Address: [address] [place] [address] Performed By: #### 2 4356-8 #### [facility] CLIA [id number] [address] [place] [address] Glucose Test strip (U) [Mass/Vol] Negative Normal Negative [facility] Comment on above: Order Comment: Speci men Type: URINE SPECIMEN Ordering Facility: [facility] Address: [address] [place] [address] Performed By: #### 2 4356-8 #### [facility] CLIA [id number] [address] [place] [address] [place] Hemoglobin Ql (U) 3+ Abnormal Negative [facility] Comment on above: Order Comment: Speci men Type: URINE SPECIMEN Ordering Facility: [facility] Address: [address] [place] [address] Performed By: #### 2 4356-8 #### [facility] CLIA [id number] [address] [place] [address] [place] Ketones Ql (U) Negative Normal Negative [facility] Comment on above: Order Comment: Speci men Type: URINE SPECIMEN Ordering Facility: [facility] Address: [address] [place] [address] Performed By: #### 2 4356-8 #### [facility] CLIA [id number] [address] [place] [address] [place] Leukocyte esterase Test strip Ql (U) Trace Abnormal Negative [facility] Comment on above: Order Comment: Speci men Type: URINE SPECIMEN Ordering Facility: [facility] Address: [address] [place] [address] Performed By: #### 2 4356-8 #### [facility] CLIA [id number] [address] [place] [address] [place] Nitrite Ql (U) Negative Normal Negative [facility] Comment on above: Order Comment: Speci men Type: URINE SPECIMEN Ordering Facility: [facility] Address: [address] [place] [address] Performed By: #### 2 4356-8 #### [facility] CLIA [id number] [address] [place] [address] [place] pH (U) 6.0 [pH] Normal 5.0-8.0 [facility] Comment on above: Order Comment: Speci men Type: URINE SPECIMEN Ordering Facility: [facility] Address: [address] [place] [address] Performed By: #### 2 4356-8 #### [facility] CLIA [id number] [address] [place] [address] [place] Protein (U) [Mass/Vol] Negative Normal Negative [facility] Comment on above: Order Comment: Speci men Type: URINE SPECIMEN Ordering Facility: [facility] Address: [address] [place] [address] Performed By: #### 2 4356-8 #### [facility] IA [id number] [address] [place] [address] [place] RBC LM.HPF (Urine sed) [#/Area] /[HPF] Abnormal 0-3 /HPF [facility] Comment on above: Order Comment: Speci men Type: URINE SPECIMEN Ordering Facility: [facility] Address: [address] [place] [address] Performed By: #### 2 4356-8 #### [facility] CLIA [id number] [address] [place] [address] [place] Specific gravity (U) [Rel density] >=1.030 Normal 1.005-1.030 [facility] Comment on above: Order Comment: Speci men Type: URINE SPECIMEN Ordering Facility: [facility] Address: [address] [place] [address] Performed By: #### 2 4356-8 #### [facility] CLIA [id number] [address] [place] [address] [place] Urobilinogen Ql (U) 0.2 EU/dL Normal 0.2-1.0 EU/dL [facility] Comment on above: Order Comment: Speci men Type: URINE SPECIMEN Ordering Facility: [facility] Address: [address] [place] [address] Performed By: #### 2 4356-8 #### [facility] CLIA [id number] [address] [place] [address] [place] WBC LM.HPF (Urine sed) [#/Area] 0-5 /HPF Normal 0-5 /HPF [facility] Comment on above: Order Comment: Speci men Type: URINE SPECIMEN Ordering Facility: [facility] Address: [address] [place] [address] Performed By: #### 2 4356-8 #### [facility] CLIA [id number] [address] [place] [address] [place] Laboratory - Chemistry and C hemistry - challengeOrdered By: Hector Lindsey on 07-17-2023 HCG ( test) Ql (U) Negative [facility] Comment on above: Very dilute urine sp ecimens, as indicated by a low specificgravity, may not contain technical sales representative levels of hCG. If is still suspected, a first morning urinespecimen should be collected 48 hours later and tested. .Auto Diffon 06-02-2023 Basophil, Absolute 0.1 10 3/mcL Normal 0.0-0.3 [facility] ([place]) Comment on above: Performed By: #### C MACARIO CHAHAL, ANEU #### [address] [address] Basophils/100 WBC (Bld) 1.1 % Normal 0.0-2.5 [facility] ([place]) Comment on above: Performed By: #### MACARIO OROZCO, ANEU #### [place] [address] [place], [place] [address] Eosinophil, Absolute 0.1 10 3/mcL Normal 0.0-0.7 [facility] ([place]) Comment on above: Performed By: #### MACARIO OROZCO, ANEU #### Barbara [place] [address] [place], [place] [address] Eosinophils/100 WBC (Bld) 2.4 % Normal 0.0-6.0 [facility] ([place]) Comment on above: Performed By: #### C MACARIO CHAHAL ANEU #### [address] [address] Lymphocyte, Absolute 2.1 10 3/mcL Normal 0.9-4.3 [facility] ([place]) Comment on above: Performed By: #### MACARIO OROZCO, ANEU #### [address] [address] Lymphocytes/100 WBC (Bld) 38.3 % Normal 20.0-40.0 [facility] ([place]) Comment on above: Performed By: #### MACARIO OROZCO, ANEU #### Barbara [address] [address] Monocyte, Absolute 0.5 10 3/mcL Normal 0.1-1.4 [facility] ([place]) Comment on above: Performed By: #### MACARIO OROZCO, ANEU #### Barbara [address] [address] Monocytes/100 WBC (Bld) 9.3 % Normal 2.0-13.0 [facility] ([place]) Comment on above: Performed By: #### MACARIO OROZCO, ANEU #### [address] [address] Neutrophils/100 WBC (Bld) 48.9 % Low 50.0-75.0 [facility] ([place]) Comment on above: Performed By: #### MACARIO OROZCO, ANEU #### [address] [address] .GFRon 06-02-2023 GFR Non- >60 Normal [facility] ([place]) Comment on above: Result Comment: GFR Population mean for , Non- Americans Ages 20-29 = 116 mL/min/1.73 sq.m. Ages 30-39 = 107 mL/min/1.73 sq.m. Ages 40-49 = 99 mL/min/1.73 sq.m. Ages 50-59 = 93 mL/min/1.73 sq.m. Ages 60-69 = 85 mL/min/1.73 sq.m. Ages 70+ = 75 mL/min/1.73 sq.m. Chronic Kidney Disease: Less than 60 mL/min/1.73 square meters End Stage Renal Disease: Less than 15 mL/min/1.73 square meters Performed By: #### MACARIO OROZCO ANEU #### [address] [address] GFR >60 Normal [facility] ([place]) Comment on above: Result Comment: GFR Population mean for , Non- Americans Ages 20-29 = 116 mL/min/1.73 sq.m. Ages 30-39 = 107 mL/min/1.73 sq.m. Ages 40-49 = 99 mL/min/1.73 sq.m. Ages 50-59 = 93 mL/min/1.73 sq.m. Ages 60-69 = 85 mL/min/1.73 sq.m. Ages 70+ = 75 mL/min/1.73 sq.m. Chronic Kidney Disease: Less than 60 mL/min/1.73 square meters End Stage Renal Disease: Less than 15 mL/min/1.73 square meters Performed By: #### MACARIO OROZCO ANEU #### [address] [address] .NEUABSon 06-02-2023 Neutrophil, Absolute 2.6 10 3/mcL Normal 2.3-8.1 [facility] ([place]) Comment on above: Performed By: #### MACARIO OROZCO ANEU #### [address] [address] B12on 06-02-2023 Cobalamin (Vitamin B12) [Mass/Vol] 534 pg/mL Normal 211-911 [facility] ([place]) Comment on above: Performed By: #### MACARIO OROZCO ANEU #### [address] [address] CBCon 06-02-2023 Erythrocyte distribution width (RBC) [Ratio] 13.3 % Normal 11.5-15.5 [facility] ([place]) Comment on above: Performed By: #### MACARIO OROZCO ANEU #### [address] [address] Hematocrit (Bld) [Volume fraction] 38.1 % Normal 34.0-46.0 [facility] ([place]) Comment on above: Performed By: #### C MACARIO CHAHAL, ANEU #### [address] [address] Hgb 12.9 G/dL Normal 12.0-16.0 [facility] ([place]) Comment on above: Performed By: #### C MACARIO CHAHAL, ANEU #### [address] [address] MCH (RBC) [Entitic mass] 28.8 pg Normal 27.0-33.0 [facility] ([place]) Comment on above: Performed By: #### C MACARIO CHAHAL, ANEU #### [address] [address] MCHC 33.9 G/dL Normal 32.0-36.0 [facility] ([place]) Comment on above: Performed By: #### C MACARIO CHAHAL, ANEU #### [address] [address] MCV (RBC) [Entitic vol] 85.1 fL Normal 80.0-99.0 [facility] ([place]) Comment on above: Performed By: #### C MACARIO CHAHAL, ANEU #### [address] [address] Platelet 353 10 3/mcL Normal 150-450 [facility] ([place]) Comment on above: Performed By: #### C MACARIO CHAHAL, ANEU #### [address] [address] Platelet mean volume (Bld) [Entitic vol] 6.9 fL Normal 6.6-10.5 [facility] ([place]) Comment on above: Performed By: #### C FELA, MACARIO, ANEU #### [address] [address] RBC 4.47 10 6/mcL Normal 4.10-5.30 [facility] ([place]) Comment on above: Performed By: #### MACARIO OROZCO, ANEU #### [address] [address] WBC 5.4 10 3/mcL Normal 4.5-10.8 [facility] ([place]) Comment on above: Performed By: #### MACARIO OROZCO, ANEU #### [address] [address] CMPon 06-02-2023 Albumin Level 4.2 G/dL Normal 3.2-4.8 [facility] ([place]) Comment on above: Performed By: #### MACARIO OROZCO, ANEU #### [address] [address] Albumin/Globulin [Mass ratio] 1.4 {ratio} Normal 0.9-1.6 [facility] ([place]) Comment on above: Performed By: #### MACARIO OROZCO, ANEU #### [address] [address] ALP [Catalytic activity/Vol] 57 U/L Normal 38-126 [facility] ([place]) Comment on above: Performed By: #### MACARIO OROZCO, ANEU #### [address] [address] ALT [Catalytic activity/Vol] 19 U/L Normal 10-49 [facility] ([place]) Comment on above: Performed By: #### MACARIO OROZCO, ANEU #### [address] [address] AST [Catalytic activity/Vol] 20 U/L Normal 8-34 [facility] ([place]) Comment on above: Performed By: #### MACARIO OROZCO, ANEU #### [address] [address] Bili Total 0.70 mg/dL Normal 0.20-1.20 [facility] ([place]) Comment on above: Result Comment: Use of this assay is not recommended for patients undergoing treatment with eltrombopag due to the potential for falsely elevated results. Performed By: #### C MACARIO CHAHAL, ANEU #### [address] [address] BUN/Creatinine Ratio 26.3 ratio High 10.0-22.0 [facility] ([place]) Comment on above: Performed By: #### C FELA, GRACIEIFF, ANEU #### [address] [address] Calcium [Mass/Vol] 9.3 mg/dL Normal 8.7-10.4 [facility] ([place]) Comment on above: Performed By: #### C MACARIO CHAHAL, ANEU #### [address] [address] Chloride [Moles/Vol] 113 mmol/L High 98-110 [facility] ([place]) Comment on above: Performed By: #### C MACARIO CHAHAL, ANEU #### [address] [address] CO2 [Moles/Vol] 22 mmol/L Normal 22-32 [facility] ([place]) Comment on above: Performed By: #### C MACARIO CHAHAL, ANEU #### [address] [address] Creatinine [Mass/Vol] 0.76 mg/dL Normal 0.50-1.20 [facility] ([place]) Comment on above: Performed By: #### C MACARIO CHAHAL, ANEU #### [address] [address] Electrolyte Balance 2.0 mEq/L Low 4.0-15.0 [facility] 1928[facility] ([place]) Comment on above: Performed By: #### C FELA, MACARIO, ANEU #### [address] [address] Globulin 3.0 G/dL Normal 1.5-3.8 [facility] ([place]) Comment on above: Performed By: #### C GRACIE CHAHALIFF, ANEU #### [address] [address] Glucose [Mass/Vol] 113 mg/dL High 70-110 [facility] ([place]) Comment on above: Performed By: #### MACARIO OROZCO, PAULETTE #### [address] [address] Potassium [Moles/Vol] 4.0 mmol/L Normal 3.5-5.0 [facility] ([place]) Comment on above: Performed By: #### MACARIO OROZCO, ANEU #### Barbara [address] [address] Sodium [Moles/Vol] 137 mmol/L Normal 136-145 [facility] ([place]) Comment on above: Performed By: #### MACARIO OROZCO, PAULETTE #### Barbara [address] [address] Total Protein 7.2 G/dL Normal 5.7-8.2 [facility] ([place]) Comment on above: Result Comment: No te - New Reference Range in effect 19 Performed By: #### MACARIO OROZCO, PAULETTE #### Barbara [address] [address] Urea nitrogen [Mass/Vol] 20.0 mg/dL Normal 8.0-22.0 [facility] ([place]) Comment on above: Performed By: #### MACARIO OROZCO, ANEU #### [address] [address] FEon 06-02-2023 Iron [Mass/Vol] 129 ug/dL Normal 50-170 [facility] ([place]) Comment on above: Performed By: #### MACARIO OROZCO, ANEU #### [address] [address] IBCon 06-02-2023 TIBC 302 mcg/dL Normal 250-500 [facility] ([place]) Comment on above: Performed By: #### MACARIO OROZCO, ANEU #### [place] [address] [address] LABORATORYOrdered By: SYSTEM SYSTEM on 06-02-2023 25-hydroxyvitamin D3 [Mass/Vol] 29.8 ng/mL Invalid Interpretation Code AH ADM SS Comment on above: Interpretive Data: I nterpretive Values Based on Total 25(OH)D: Severe Deficiency <20 ng/mL Mild to Moderate Deficiency 20-30 ng/mL Optimum Levels 30-100 ng/mL Toxicity Possible >100 ng/mL Albumin BCP dye [Mass/Vol] 4.2 G/dL Normal 3.2 - 4.8 G/dL ADM SS Albumin/Globulin [Mass ratio] 1.4 {ratio} Normal 0.9 - 1.6 ratio AH ADM SS ALP [Catalytic activity/Vol] 57 U/L Normal 38 - 126 U/L AH ADM SS ALT No additional P-5'-P [Catalytic activity/Vol] 19 U/L Normal 10 - 49 U/L AH ADM SS AST [Catalytic activity/Vol] 20 U/L Normal 8 - 34 U/L ADM SS Basophils (Bld) [#/Vol] 0.1 103/mcL Normal 0.0 - 0.3 10^3/mcL Workflow SS Basophils/100 WBC (Bld) 1.1 % Normal 0.0 - 2.5 % Workflow SS Bilirubin [Mass/Vol] 0.70 mg/dL Normal 0.20 - 1.20 mg/dL ADM SS Comment on above: Interpretive Data: U se of this assay is not recommended for patients undergoing treatment with eltrombopag due to the potential for falsely elevated results. Calcium [Mass/Vol] 9.3 mg/dL Normal 8.7 - 10. 4 mg/dL AH ADM SS Chloride [Moles/Vol] 113 mmol/L High 98 - 11 0 mEq/L AH ADM SS CO2 [Moles/Vol] 22 mmol/L Normal 22 - 32 mEq/L ADM SS Cobalamin (Vitamin B12) [Mass/Vol] 534 pg/mL Normal 211 - 911 pg/mL AH ADM SS Creatinine [Mass/Vol] 0.76 mg/dL Normal 0.50 - 1.20 mg/dL AH ADM SS Electrolyte Balance 2.0 mEq/L Low 4.0 - 15 .0 mEq/L AH ADM SS Eosinophils (Bld) [#/Vol] 0.1 103/mcL Normal 0.0 - 0.7 10^3/mcL Workflow SS Eosinophils/100 WBC (Bld) 2.4 % Normal 0.0 - 6.0 % Workflow SS Erythrocyte distribution width (RBC) [Ratio] 13.3 % Normal 11.5 - 15.5 % Workflow SS GFR/1.73 sq M.predicted among blacks MDRD (S/P/Bld) [Vol rate/Area] ml/min/1.73sqm Invalid Interpretation Code unamia Chemistry S Comment on above: Interpretive Data: GFR Population mean for , Non- Americans Ages 20-29 = 116 mL/min/1.73 sq.m. Ages 30-39 = 107 mL/min/1.73 sq.m. Ages 40-49 = 99 mL/min/1.73 sq.m. Ages 50-59 = 93 mL/min/1.73 sq.m. Ages 60-69 = 85 mL/min/1.73 sq.m. Ages 70+ = 75 mL/min/1.73 sq.m. Chronic Kidney Disease: Less than 60 mL/min/1.73 square meters End Stage Renal Disease: Less than 15 mL/min/1.73 square meters GFR/1.73 sq M.predicted among non-blacks MDRD (S/P/Bld) [Vol rate/Area] ml/min/1.73sqm Invalid Interpretation Code unamia Chemistry S Comment on above: Interpretive Data: GFR Population mean for , Non- Americans Ages 20-29 = 116 mL/min/1.73 sq.m. Ages 30-39 = 107 mL/min/1.73 sq.m. Ages 40-49 = 99 mL/min/1.73 sq.m. Ages 50-59 = 93 mL/min/1.73 sq.m. Ages 60-69 = 85 mL/min/1.73 sq.m. Ages 70+ = 75 mL/min/1.73 sq.m. Chronic Kidney Disease: Less than 60 mL/min/1.73 square meters End Stage Renal Disease: Less than 15 mL/min/1.73 square meters Globulin 3.0 G/dL Normal 1.5 - 3.8 G/dL ADM SS Glucose [Mass/Vol] 113 mg/dL High 70 - 110 mg/dL ADM SS Hematocrit (Bld) [Volume fraction] 38.1 % Normal 34.0 - 46.0 % Workflow SS Hemoglobin (Bld) [Mass/Vol] 12.9 G/dL Normal 12.0 - 16.0 G/dL AH Workflow SS Iron [Mass/Vol] 129 ug/dL Normal 50 - 170 mcg/dL AH ADM SS Iron binding capacity [Mass/Vol] 302 mcg/dL Normal 250 - 500 mcg/dL AH ADM SS Lymphocytes (Bld) [#/Vol] 2.1 103/mcL Normal 0.9 - 4.3 10^3/mcL AH Workflow SS Lymphocytes/100 WBC (Bld) 38.3 % Normal 20.0 - 40.0 % AH Workflow SS Magnesium [Mass/Vol] 1.8 mg/dL Normal 1.6 - 2 .4 mg/dL AH ADM SS MCH (RBC) [Entitic mass] 28.8 pg Normal 27.0 - 33.0 pg AH Workflow SS MCHC 33.9 G/dL Normal 32.0 - 36.0 G/dL AH Workflow SS MCV (RBC) [Entitic vol] 85.1 fL Normal 80.0 - 99.0 fL AH Workflow SS Monocytes (Bld) [#/Vol] 0.5 103/mcL Normal 0.1 - 1.4 10^3/mcL AH Workflow SS Monocytes/100 WBC (Bld) 9.3 % Normal 2.0 - 13.0 % AH Workflow SS Neutrophils (Bld) [#/Vol] 2.6 103/mcL Normal 2.3 - 8.1 10^3/mcL AH Workflow SS Neutrophils/100 WBC (Bld) 48.9 % Low 50.0 - 75.0 % AH Workflow SS Platelet mean volume (Bld) [Entitic vol] 6.9 fL Normal 6.6 - 10.5 fL AH Workflow SS Platelets (Bld) [#/Vol] 353 103/mcL Normal 150 - 450 10^3/mcL AH Workflow SS Potassium [Moles/Vol] 4.0 mmol/L Normal 3.5 - 5.0 mEq/L AH ADM SS Protein [Mass/Vol] 7.2 G/dL Normal 5.7 - 8.2 G/dL AH ADM SS Comment on above: Interpretive Data: * *Note - New Reference Range in effect 19 RBC (Bld) [#/Vol] 4.47 106/mcL Normal 4.10 - 5.3 0 10^6/mcL AH Workflow SS Sodium [Moles/Vol] 137 mmol/L Normal 136 - 145 mEq/L AH ADM SS TSH Qn 2.004 mIU/mL Normal 0.550 - 4.780 mIU/mL AH ADM SS Comment on above: Interpretive Data: * *Note - New Reference Range in effect 19 Urea nitrogen [Mass/Vol] 20.0 mg/dL Normal 8.0 - 22.0 mg/dL AH ADM SS Urea nitrogen/Creatinine [Mass ratio] 26.3 ratio High 10.0 - 22.0 ratio AH ADM SS WBC (Bld) [#/Vol] 5.4 103/mcL Normal 4.5 - 10.8 10^3/mcL Workflow SS MGon 06-02-2023 Magnesium [Mass/Vol] 1.8 mg/dL Normal 1.6-2.4 [facility] ([place]) Comment on above: Performed By: #### MACARIO OROZCO ANEU #### [address] [address] TSHon 06-02-2023 TSH 2.004 mIU/mL Normal 0.550-4.780 [facility] ([place]) Comment on above: Result Comment: No te - New Reference Range in effect 19 Performed By: #### MACARIO OROZCO ANEU #### [address] [address] VIDHon 06-02-2023 Vit. D 25-Hydroxy 29.8 ng/mL Normal [facility] ([place]) Comment on above: Result Comment: Inte rpretive Values Based on Total 25(OH)D: Severe Deficiency <20 ng/mL Mild to Moderate Deficiency 20-30 ng/mL Optimum Levels 30-100 ng/mL Toxicity Possible >100 ng/mL Performed By: #### MACARIO OROZCO ANEU #### [address] [address] No Panel Informationon 05-29 Culture Urine 50,000 - 100,000 cfu /ml Mixed growth consistent with normal urogenital derrick. including 1,000 cfu/ml Group B Beta Hemolytic Strep (Strep agalactiae) Sensitivity testing is not recommended for one of the following reasons: 1. Established susceptibility patterns are available or 2. Interpretative criteria are not available. [facility] 36on 02-13-2023 36 Patient's due date h as passed. Normal [facility] .Auto Diffon 02-07-2023 Basophil, Absolute 0.1 10 3/mcL Normal 0.0-0.2 [facility] ([place]) Comment on above: Performed By: #### MACARIO OROZCO, ANEU #### [address] [address] Basophils/100 WBC (Bld) 0.5 % Normal 0.0-2.5 [facility] ([place]) Comment on above: Performed By: #### MACARIO OROZCO, ANEU #### [address] [address] Eosinophil, Absolute 0.0 10 3/mcL Normal 0.0-0.4 [facility] ([place]) Comment on above: Performed By: #### MACARIO OROZCO, ANEU #### [address] [address] Eosinophils/100 WBC (Bld) 0.3 % Normal 0.0-7.0 [facility] ([place]) Comment on above: Performed By: #### MACARIO OROZCO, ANEU #### [address] [address] Lymphocyte, Absolute 1.6 10 3/mcL Normal 0.8-3.9 [facility] ([place]) Comment on above: Performed By: #### MACARIO OROZCO, ANEU #### [address] [address] Lymphocytes/100 WBC (Bld) 11.1 % Normal 10.0-50.0 [facility] ([place]) Comment on above: Performed By: #### MACARIO OROZCO, ANEU #### [address] [address] Monocyte, Absolute 1.0 10 3/mcL Normal 0.2-1.0 [facility] ([place]) Comment on above: Performed By: #### MACARIO OROZCO, ANEU #### [address] [address] Monocytes/100 WBC (Bld) 7.1 % Normal 1.7-13.0 [facility] ([place]) Comment on above: Performed By: #### C MACARIO CHAHAL, ANEU #### [address] [address] Neutrophils/100 WBC (Bld) 81.0 % High 37.0-80.0 [facility] ([place]) Comment on above: Performed By: #### MACARIO OROZCO, ANEU #### [address] [address] .NEUABSon 02-07-2023 Neutrophil, Absolute 11.9 10 3/mcL High 2.9-6.2 A [facility] ([place]) Comment on above: Performed By: #### C MACARIO CHAHAL, ANEU #### [address] [address] CBCon 02-07-2023 Erythrocyte distribution width (RBC) [Ratio] 14.1 % Normal 11.5-14.5 [facility] ([place]) Comment on above: Performed By: #### MACARIO OROZCO, ANEU #### [address] [address] Hematocrit (Bld) [Volume fraction] 26.8 % Low 37.0-47.0 [facility] ([place]) Comment on above: Performed By: #### MACARIO OROZCO, ANEU #### [address] [address] Hgb 9.2 G/dL Low 12.0-16.0 [facility] ([place]) Comment on above: Performed By: #### C MACARIO CHAHAL, ANEU #### [address] [address] MCH (RBC) [Entitic mass] 29.2 pg Normal 27.0-31.2 [facility] ([place]) Comment on above: Performed By: #### MACARIO OROZCO, ANEU #### [address] [address] MCHC 34.3 G/dL Normal 33.0-37.0 [facility] ([place]) Comment on above: Performed By: #### MACARIO OROZCO ANEU #### [address] [address] MCV (RBC) [Entitic vol] 85.3 fL Normal 80.0-94.0 [facility] ([place]) Comment on above: Performed By: #### MACARIO OROZCO ANEU #### [address] [address] Platelet 246 10 3/mcL Normal 130-400 [facility] ([place]) Comment on above: Performed By: #### MACARIO OROZCO ANEU #### [place] [address] [address] Platelet mean volume (Bld) [Entitic vol] 7.7 fL Normal 7.4-10.4 [facility] ([place]) Comment on above: Performed By: #### MACARIO OROZCO ANEU #### [place] [address] [address] RBC 3.14 10 6/mcL Low 4.20-5.40 [facility] ([place]) Comment on above: Performed By: #### MACARIO OROZCO ANEU #### [address] [address] WBC 14.7 10 3/mcL High 4.6-10.8 [facility] ([place]) Comment on above: Performed By: #### MACARIO OROZCO ANEU #### [address] [address] LABORATORYOrdered By: SYSTEM SYSTEM on 02-07-2023 Basophil, Absolute 0.1 103/mcL Invalid Interpretation Code 0.0 - 0.2 10^3/mcL AO Workflow SS Basophils/100 WBC (Bld) 0.5 % Invalid Interpretation Code 0.0 - 2.5 % AO Workflow SS Eosinophil, Absolute 0.0 103/mcL Invalid Interpretation Code 0.0 - 0.4 10^3/mcL AO Workflow SS Eosinophils/100 WBC (Bld) 0.3 % Invalid Interpretation Code 0.0 - 7.0 % AO Workflow SS Erythrocyte distribution width (RBC) [Ratio] 14.1 % Invalid Interpretation Code 11.5 - 14.5 % AO Workflow SS Hematocrit (Bld) [Volume fraction] 26.8 % Invalid Interpretation Code 37.0 - 47.0 % AO Workflow SS Hemoglobin (Bld) [Mass/Vol] 9.2 G/dL Invalid Interpretation Code 12.0 - 16.0 G/dL AO Workflow SS Lymphocyte, Absolute 1.6 103/mcL Invalid Interpretation Code 0.8 - 3.9 10^3/mcL AO Workflow SS Lymphocytes/100 WBC (Bld) 11.1 % Invalid Interpretation Code 10.0 - 50.0 % AO Workflow SS MCH (RBC) [Entitic mass] 29.2 pg Invalid Interpretation Code 27.0 - 31.2 pg AO Workflow SS MCHC 34.3 G/dL Invalid Interpretation Code 33.0 - 37.0 G/dL AO Workflow SS MCV (RBC) [Entitic vol] 85.3 fL Invalid Interpretation Code 80.0 - 94.0 fL AO Workflow SS Monocyte, Absolute 1.0 103/mcL Invalid Interpretation Code 0.2 - 1.0 10^3/mcL AO Workflow SS Monocytes/100 WBC (Bld) 7.1 % Invalid Interpretation Code 1.7 - 13.0 % AO Workflow SS Neutrophil, Absolute 11.9 103/mcL Invalid Interpretation Code 2.9 - 6.2 10^3/mcL AO Workflow SS Neutrophils/100 WBC (Bld) 81.0 % Invalid Interpretation Code 37.0 - 80.0 % AO Workflow SS Platelet mean volume (Bld) [Entitic vol] 7.7 fL Invalid Interpretation Code 7.4 - 10.4 fL AO Workflow SS Platelets (Bld) [#/Vol] 246 103/mcL Invalid Interpretation Code 130 - 400 10^3/mcL AO Workflow SS RBC (Bld) [#/Vol] 3.14 106/mcL Invalid Interpretation Code 4.20 - 5.40 10^6/mcL AO Workflow SS WBC (Bld) [#/Vol] 14.7 103/mcL Invalid Interpretation Code 4.6 - 10.8 10^3/mcL AO Workflow SS RPRon 02-07-2023 Reagin Ab RPR Ql (S) Non-Reactive Normal Non-Reactive [facility] ([place]) Comment on above: Result Comment: The RPR test is a non-treponemal assay useful as an aid in the diagnosis of primary and secondary syphilis. It converts to positive generally within 2 weeks after the appearance of a lesion. This test is also useful for monitoring response to antibiotic therapy. A positive RPR screening test will be followed by the FTA ABS test. False positive RPR tests may occur in 1) patients with underlying autoimmune disorders, 2) elderly patients, 3) , and 4) other conditions with abnormal serum globulins. Performed By: #### U KARTIK UA #### [place] [address] .Auto Diffon 02-06-2023 Basophil, Absolute 0.1 10 3/mcL Normal 0.0-0.2 [facility] ([place]) Comment on above: Performed By: #### C BC, ABOG, ANEU, ANSG, ADIFF, MORPH #### [place] [address] #### RPR #### [address] [address] Basophils/100 WBC (Bld) 0.6 % Normal 0.0-2.5 [facility] ([place]) Comment on above: Performed By: #### C BC, ABOG, ANEU, ANSG, ADIFF, MORPH #### [place] [address] #### RPR #### [address] [address] Eosinophil, Absolute 0.1 10 3/mcL Normal 0.0-0.4 [facility] ([place]) Comment on above: Performed By: #### C BC, ABOG, ANEU, ANSG, ADIFF, MORPH #### [place] [address] #### RPR #### [address] [address] Eosinophils/100 WBC (Bld) 1.2 % Normal 0.0-7.0 [facility] ([place]) Comment on above: Performed By: #### C BC, ABOG, ANEU, ANSG, ADIFF, MORPH #### [place] [id number] #### RPR #### [address] [address] Lymphocyte, Absolute 1.9 10 3/mcL Normal 0.8-3.9 [facility] ([place]) Comment on above: Performed By: #### C BC, ABOG, ANEU, ANSG, ADIFF, MORPH #### [place] [address] #### RPR #### [address] [address] Lymphocytes/100 WBC (Bld) 17.3 % Normal 10.0-50.0 [facility] ([place]) Comment on above: Performed By: #### C BC, ABOG, ANEU, ANSG, ADIFF, MORPH #### [place] [address] #### RPR #### [address] [address] Monocyte, Absolute 0.9 10 3/mcL Normal 0.2-1.0 [facility] ([place]) Comment on above: Performed By: #### C BC, ABOG, ANEU, ANSG, ADIFF, MORPH #### [place] [address] #### RPR #### [address] [address] Monocytes/100 WBC (Bld) 8.8 % Normal 1.7-13.0 [facility] ([place]) Comment on above: Performed By: #### C BC, ABOG, ANEU, ANSG, ADIFF, MORPH #### [place] [address] #### RPR #### [address] [address] Neutrophils/100 WBC (Bld) 72.1 % Normal 37.0-80.0 [facility] ([place]) Comment on above: Performed By: #### C BC, ABOG, ANEU, ANSG, ADIFF, MORPH #### [place] [address] #### RPR #### [address] [address] .Morphon 02-06-2023 Platelet Estimate Normal Normal [facility] ([place]) Comment on above: Performed By: #### U KARTIK, UA #### [address] [address] .NEUABSon 02-06-2023 Neutrophil, Absolute 7.7 10 3/mcL High 2.9-6.2 [facility] ([place]) Comment on above: Performed By: #### C BC, ABOG, ANEU, ANSG, ADIFF, MORPH #### [place] [address] #### RPR #### [place] [address] CBCon 02-06-2023 Erythrocyte distribution width (RBC) [Ratio] 14.3 % Normal 11.5-14.5 [facility] ([place]) Comment on above: Performed By: #### C BC, ABOG, ANEU, ANSG, ADIFF, MORPH #### [place] [address] #### RPR #### [place] [address] Hematocrit (Bld) [Volume fraction] 33.7 % Low 37.0-47.0 [facility] ([place]) Comment on above: Performed By: #### C BC, ABOG, ANEU, ANSG, ADIFF, MORPH #### [place] [address] #### RPR #### [place] [address] Hgb 11.4 G/dL Low 12.0-16.0 [facility] ([place]) Comment on above: Performed By: #### C BC, ABOG, ANEU, ANSG, ADIFF, MORPH #### [place] [address] #### RPR #### [place] [address] MCH (RBC) [Entitic mass] 29.3 pg Normal 27.0-31.2 [facility] ([place]) Comment on above: Performed By: #### C BC, ABOG, ANEU, ANSG, ADIFF, MORPH #### [place] [address] #### RPR #### [place] [address] MCHC 33.9 G/dL Normal 33.0-37.0 [facility] ([place]) Comment on above: Performed By: #### C BC, ABOG, ANEU, ANSG, ADIFF, MORPH #### [place] [address] #### RPR #### [place] [address] MCV (RBC) [Entitic vol] 86.4 fL Normal 80.0-94.0 [facility] ([place]) Comment on above: Performed By: #### C BC, ABOG, ANEU, ANSG, ADIFF, MORPH #### [place] [address] #### RPR #### [place] [address] Platelet 244 10 3/mcL Normal 130-400 [facility] ([place]) Comment on above: Performed By: #### C BC, ABOG, ANEU, ANSG, ADIFF, MORPH #### [place] [address] #### RPR #### [place] [address] Platelet mean volume (Bld) [Entitic vol] 7.3 fL Low 7.4-10.4 [facility] ([place]) Comment on above: Performed By: #### C BC, ABOG, ANEU, ANSG, ADIFF, MORPH #### [place] [address] #### RPR #### [place] [address] RBC 3.90 10 6/mcL Low 4.20-5.40 [facility] ([place]) Comment on above: Performed By: #### C BC, ABOG, ANEU, ANSG, ADIFF, MORPH #### [address] [address] #### RPR #### [address] [address] WBC 10.7 10 3/mcL Normal 4.6-10.8 [facility] ([place]) Comment on above: Performed By: #### C BC, ABOG, ANEU, ANSG, ADIFF, MORPH #### [address] [address] #### RPR #### [address] [address] Gel ABOon 02-06-2023 ABO/Rh Interp Positive Invalid Interpretation Code [facility] ([place]) Comment on above: Performed By: #### U KARTIK, UA #### [address] [address] Gel ABSon 02-06-2023 Antibody Screen Gel Negative Normal [facility] ([place]) Comment on above: Performed By: #### U KARTIK, UA #### [address] [address] LABORATORYOrdered By: Ana Schumacher on 02-06-2023 ABO and Rh group Nom (Bld) A positive (02/06/23 9:36 AM) [facility] Group B Strep Date Performed [id number] [facility] Group B Strep, External Positive (02/06/23 9:36 AM) [facility] Hepatitis B Date Performed [id number] [facility] Hepatitis B, External Negative (02/06/23 9:36 AM) [facility] HIV Antibodies, External Negative (02/06/23 9:36 AM) [facility] RPR Date Performed [id number] [facility] RPR, External Nonreactive (02/06/23 9:36 AM) [facility] Rubella Date Performed [id number] [facility] Rubella, External Immune (02/06/23 9:36 AM) [facility] LABORATORYOrdered By: Fernando Rome on 02-06-2023 ABO/Rh Interp Positive Invalid Interpretation Code AO BB SS Antibody Screen Gel Negative ABSC (02/06/23 9:35 AM) Invalid Interpretation Code AO BB SS LABORATORYOrdered By: SYSTEM SYSTEM on 02-06-2023 Basophil, Absolute 0.1 103/mcL Invalid Interpretation Code 0.0 - 0.2 10^3/mcL AO Workflow SS Basophils/100 WBC (Bld) 0.6 % Invalid Interpretation Code 0.0 - 2.5 % AO Workflow SS Eosinophil, Absolute 0.1 103/mcL Invalid Interpretation Code 0.0 - 0.4 10^3/mcL AO Workflow SS Eosinophils/100 WBC (Bld) 1.2 % Invalid Interpretation Code 0.0 - 7.0 % AO Workflow SS Erythrocyte distribution width (RBC) [Ratio] 14.3 % Invalid Interpretation Code 11.5 - 14.5 % AO Workflow SS Hematocrit (Bld) [Volume fraction] 33.7 % Invalid Interpretation Code 37.0 - 47.0 % AO Workflow SS Hemoglobin (Bld) [Mass/Vol] 11.4 G/dL Invalid Interpretation Code 12.0 - 16.0 G/dL AO Workflow SS Lymphocyte, Absolute 1.9 103/mcL Invalid Interpretation Code 0.8 - 3.9 10^3/mcL AO Workflow SS Lymphocytes/100 WBC (Bld) 17.3 % Invalid Interpretation Code 10.0 - 50.0 % AO Workflow SS MCH (RBC) [Entitic mass] 29.3 pg Invalid Interpretation Code 27.0 - 31.2 pg AO Workflow SS MCHC 33.9 G/dL Invalid Interpretation Code 33.0 - 37.0 G/dL AO Workflow SS MCV (RBC) [Entitic vol] 86.4 fL Invalid Interpretation Code 80.0 - 94.0 fL AO Workflow SS Monocyte, Absolute 0.9 103/mcL Invalid Interpretation Code 0.2 - 1.0 10^3/mcL AO Workflow SS Monocytes/100 WBC (Bld) 8.8 % Invalid Interpretation Code 1.7 - 13.0 % AO Workflow SS Neutrophil, Absolute 7.7 103/mcL Invalid Interpretation Code 2.9 - 6.2 10^3/mcL AO Workflow SS Neutrophils/100 WBC (Bld) 72.1 % Invalid Interpretation Code 37.0 - 80.0 % AO Workflow SS Platelet mean volume (Bld) [Entitic vol] 7.3 fL Invalid Interpretation Code 7.4 - 10.4 fL AO Workflow SS Platelets (Bld) [#/Vol] 244 103/mcL Invalid Interpretation Code 130 - 400 10^3/mcL AO Workflow SS RBC (Bld) [#/Vol] 3.90 106/mcL Invalid Interpretation Code 4.20 - 5.40 10^6/mcL AO Workflow SS WBC (Bld) [#/Vol] 10.7 103/mcL Invalid Interpretation Code 4.6 - 10.8 10^3/mcL AO Workflow SS LABORATORYOrdered By: Amador Gil on 02-06-2023 Platelet Estimate Normal (02/06/23 9:35 AM) Invalid Interpretation Code AO Hematology S LABORATORYOrdered By: Bing Donaldson on 02-06-2023 Reagin Ab RPR Ql (S) Non-Reactive 1 (02/06/23 9:35 AM) Invalid Interpretation Code Non-Reactive [facility] Viro/Sero SS Comment on above: Interpretive Data: T he RPR test is a non-treponemal assay useful as an aid in the diagnosis of primary and secondary syphilis. It converts to positive generally within 2 weeks after the appearance of a lesion. This test is also useful for monitoring response to antibiotic therapy. A positive RPR screening test will be followed by the FTA ABS test. False positive RPR tests may occur in 1) patients with underlying autoimmune disorders, 2) elderly patients, 3) , and 4) other conditions with abnormal serum globulins. 36on 01-30-2023 36 Name of caller: Selene Contact phone number: [phone] Relationship to Patient: patient Provider: not established Practice: [facility] Womens Chief Complaint/Reason for Call: Selene is interested in transferring to [facility] location from Dr. Regalado in [place]. She is 37w OB. Due date is 02/11/23 and expresses concern about heart rate dropping from 160 to 40 last week. She is currently scheduled for with her current provided. Per Nilsa, caller informed that records would need to be reviewed and appt approved prior to scheduling. Records in route. Please contact caller to follow up. Best time of day caller can be reached: any Patient advised that office/PCP has 24-48 business hours to return their call: No Normal [facility] Nursing Noteon 01-30-2023 Nursing Note DC instructions reviewed with pt at this time denies any questions. Written instructions given and pt left unit ambulatory by herself Normal [facility] Progress Noteon 01-30-2023 Progress Note Patient declining an y intervention at this time. aware. Normal [facility] Progress Note --- Attestation signed by Abiola Gonzalez DO at 01/30/2023 9:45 AM Hospital Care (Independent): I independently saw and evaluated the patient. I agree with the findings and plan of care as documented in the resident's note. Department of Obstetrics and Gynecology Labor and Delivery Triage Note CHIEF COMPLAINT: CTX HISTORY OF PRESENT ILLNESS: The patient is a 27 y.o. 38w2d. OB History 3 Para 1 Term 1 AB Living 1 SAB IAB Ectopic Multiple Live Births 1 Patient presents with a chief complaint as above. Patient states that she drank something called [employer]'s brew earlier this evening and shortly after she noticed increasing contractions and diarrhea. She presents today with complaints of abdominal pain and CTX. She denies any DFM/VB/LOF. She has a history of PCD in her G1 for arrest of descent, with a successful in her G2. She has a history of asthma, denies hospitalizations or intubations. Estimated Due Date: Estimated Date of Delivery: 02/11/23 PAST MEDICAL HISTORY: Past Medical History: Diagnosis Date Anemia Asthma Hypoglycemia Interstitial cystitis PAST SURGICAL HISTORY: Past Surgical History: Procedure Laterality Date SECTION (HISTORICAL) CHOLECYSTECTOMY N/A DILATION AND CURETTAGE OF UTERUS 05/29/2021 LAPAROSCOPY DIAGNOSTIC / BIOPSY / ASPIRATION / LYSIS SOCIAL HISTORY: reports that she has never smoked. She has never used smokeless tobacco. She reports that she does not drink alcohol and does not use drugs. MEDICATIONS: Prior to Admission medications Medication Sig Start Date End Date Taking? Authorizing Provider calcitriol (Rocaltrol) 0.25 MCG capsule Take 0.25 mcg by mouth daily. Historical Provider, ferrous sulfate 325 (65 Fe) MG tablet Take 325 mg by mouth in the morning and 325 mg in the evening. Historical Provider, L-Methylfolate 15 MG tablet Take 15 mg by mouth 1 (one) time each day. Pt unsure of dosage Historical Provider, metroNIDAZOLE (Flagyl) 375 MG capsule Take 375 mg by mouth 2 times daily. Historical Provider, 27-1 MG tablet Take 1 tablet by mouth daily. Historical Provider, CARE: Complicated by: Hx CD, Asthma REVIEW OF SYSTEMS: Pertinent items are noted in HPI. APPEARANCE: Pain: No PHYSICAL EXAM: Vital Signs: VS wnl-reviewed/Respiratio ns normal effort There were no vitals filed for this visit. Abdomen: soft, NT, ND, no rebound/guarding, no incisional tenderness with deep palpation of U/S probe Uterus: gravid/non-tender LE Edema: trace Speculum Exam: defer heart rate: Category I Cervix: 1/50/-3 Contraction frequency: regular, every 4 minutes Membranes: Intact RESULTS: TRIAGE COURSE: VTX on BSUS, pain with contractions, but no incisional pain with U/S probe pressure. SVE 50/-3. FHT Cat I, CTX q 4 min. Will give tylenol and Lidocaine and monitor. Milvia Jauregui, 01/30/2023 1:12 AM Reassessed patient at this time, patient declined intervention,declines tylenol, lidocaine patch, declines simethicone. FHT Cat I, patient feels comfortable and is requesting discharge at this time. Return precautions given. Patient states she has an OB appointment in the morning. Milvia Jauregui, 01/30/2023 2:04 AM IMPRESSION: False Labor Pain assessment and plan: None DISCUSSED WITH [facility] PROVIDER: Dr. Gonzalez DISPOSITION: Discharge to Home [facility] LABORATORYOrdered By: Ann-Marie Macdonald on 01-22-2023 Appearance (U) Clear (01/22/23 6:50 PM) Invalid Interpretation Code Clear AO Auto Urine SS Bilirubin Ql (U) Negative (01/22/23 6:50 PM) Invalid Interpretation Code Negative AO Auto Urine SS Color (U) Yellow (01/22/23 6:50 PM) Invalid Interpretation Code AO Auto Urine SS Glucose Test strip (U) [Mass/Vol] Negative Invalid Interpretation Code Negative AO Auto Urine SS Hemoglobin Auto test strip (U) [Mass/Vol] Negative (01/22/23 6:50 PM) Invalid Interpretation Code Negative AO Auto Urine SS Ketones Ql (U) Negative Invalid Interpretation Code Negative AO Auto Urine SS UA Leuk Est Negative (01/22/23 6:50 PM) Invalid Interpretation Code Negative AO Auto Urine SS UA Nitrite Negative (01/22/23 6:50 PM) Invalid Interpretation Code Negative AO Auto Urine SS UA pH 6.0 (01/22/23 6:50 PM) Invalid Interpretation Code 5.0 - 8.0 AO Auto Urine SS UA Protein Negative Invalid Interpretation Code Negative AO Auto Urine SS UA Spec Grav 1.015 (01/22/23 6:50 PM) Invalid Interpretation Code 1.015-1.025 AO Auto Urine SS UA Specimen Type Clean Catch (01/22/23 6:50 PM) Invalid Interpretation Code AO Auto Urine SS UA Urobilinogen 0.2 E.U./dL Invalid Interpretation Code 0.2-1.0 AO Auto Urine SS UAon 01-22-2023 Color (U) Yellow Normal [facility] ([place]) Comment on above: Performed By: #### U A #### Barbara [address] [place], [place] [address] Glucose (U) [Mass/Vol] Negative Normal Negative [facility] ([place]) Comment on above: Performed By: #### U A #### Barbara [address] [place], [place] [address] Ketones Ql (U) Negative Normal Negative [facility] ([place]) Comment on above: Performed By: #### U A #### Barbarayuly [address] [place], [place] [address] UA Appear Clear Normal Clear [facility] ([place]) Comment on above: Performed By: #### U A #### Barbara [address] [place], [place] [address] UA Blood Negative Normal Negative [facility] ([place]) Comment on above: Performed By: #### U A #### Barbara [address] [place], [place] [address] UA Leuk Est Negative Normal Negative [facility] ([place]) Comment on above: Performed By: #### U A #### Barbara [address] [place], [place] [address] UA Nitrite Negative Normal Negative [facility] ([place]) Comment on above: Performed By: #### U A #### Barbara [address] [place], [place] [address] UA pH 6.0 Normal 5.0 - 8.0 [facility] ([place]) Comment on above: Performed By: #### U A #### Barbara [address] [place], [place] [address] UA Protein Negative Normal Negative [facility] ([place]) Comment on above: Performed By: #### U A #### Barbara [address] [place], [place] [address] UA Spec Grav 1.015 Normal 1.015-1.025 [facility] ([place]) Comment on above: Performed By: #### U A #### Barbara [address] [place], [place] [address] UA Specimen Type Clean Catch Normal [facility] ([place]) Comment on above: Performed By: #### U A #### Barbara [place] [address] [place], [place] [address] UA Urobilinogen 0.2 E.U./dL Normal 0.2-1.0 [facility] ([place]) Comment on above: Performed By: #### U A #### Barbara [place] [address] [place], [place] [address] Urobilinogen (U) [Mass/Vol] Negative Normal Negative [facility] ([place]) Comment on above: Performed By: #### U A #### [facility] [address] [place], [place] [address] Bacterial vaginosis and vagi nitis rRNA panel Probe (Vag fld)on 12-17-2022 Bacterial vaginosis Ql (Vag fld) [Interp] Not detected Not Detected [facility] C. glabrata DNA TIARA+probe Ql (Vag fld) Not detected Not Detected [facility] Heena sp DNA TIARA+probe Ql (Vag fld) Not detected Not Detected [facility] Interpretation and review of laboratory results Normal [facility] T. vaginalis DNA TIARA+probe Ql (Vag fld) Not detected Not Detected [facility] Methodology: real-ti me PCR A negative result does not preclude a possible infection. This assay can detect the Heena species C. albicans, C. tropicalis, C. parapsilosis, and C. dubliniensis but does not differentiate among them. The assay also detects C. glabrata and C. krusei, but does not differentiate between them. Results should be interpreted in conjunction with other clinical data. This test has not been validated for use with specimens collected by patients at home. This test is intended for medical purposes only and is not valid for the evaluation of suspected sexual abuse or for other forensic purposes. [facility] Progress Noteon 12-17-2022 Progress Note --- Attestation signed by Supriya Vivar MD at 12/17/2022 11:47 AM Hospital Care (Independent): I independently saw and evaluated the patient. I agree with the findings and plan of care as documented in the resident's note. Department of Obstetrics and Gynecology Labor and Delivery Triage Note CHIEF COMPLAINT: Pelvic pressure; irritation HISTORY OF PRESENT ILLNESS: The patient is a 27 y.o. 32w0d. OB History 3 Para 1 Term 1 AB Living 1 SAB IAB Ectopic Multiple Live Births 1 Patient presents with a chief complaint as above. Patient with external irritation and currently being treated for bacterial vaginosis at this time. Described external irritation and pelvic pressure. Stated increased joint pains when put into butterfly positioning. Denies urinary complaints; however increased pelvic pressure. Denies DFM/VB/LOF/CTX Estimated Due Date: Estimated Date of Delivery: 02/11/23 PAST MEDICAL HISTORY: Past Medical History: Diagnosis Date Anemia Asthma Hypoglycemia Interstitial cystitis PAST SURGICAL HISTORY: Past Surgical History: Procedure Laterality Date SECTION (HISTORICAL) CHOLECYSTECTOMY N/A DILATION AND CURETTAGE OF UTERUS 05/29/2021 LAPAROSCOPY DIAGNOSTIC / BIOPSY / ASPIRATION / LYSIS SOCIAL HISTORY: Social History Socioeconomic History Marital status: Tobacco Use Smoking status: Never Smokeless tobacco: Never Vaping Use Vaping Use: Never used Substance and Sexual Activity Alcohol use: No Drug use: No Sexual activity: Not Currently Partners: Male MEDICATIONS: No current facility-administered medications for this encounter. CARE: Complicated by: None REVIEW OF SYSTEMS: Pertinent items are noted in HPI. APPEARANCE: Pain: No PHYSICAL EXAM: Vital Signs: VS wnl-reviewed/Respiratio ns normal effort Vitals: 12/17/22 0934 12/17/22 1000 12/17/22 1100 BP: 104/58 Pulse: 82 81 86 Resp: 18 Temp: 36.7 ?C (98 ?F) TempSrc: Oral Weight: 181 lb (82.1 kg) Height: 5' 3 (1.6 m) Abdomen: soft, gravid, nontender, nondistended, no abnormal masses, no epigastric pain Uterus: gravid/non-tender LE Edema: trace Speculum Exam: no pooling of fluid seen, vaginal discharge physiologic in nature; presence of vaginal yeast externally with external vaginal irritation present heart rate: Category I Cervix: Closed Contraction frequency: none Membranes: Intact TRIAGE COURSE: Patient with external discomfort on exam. No contractions noted on toco, patient overall comfortable appearing with closed cervix. Will send vaginal pathogens probe and UA. Will treat external vaginal yeast infection. Vaginal pathogens pending. Low concern for UTI on UA. Will treat vaginal yeast infection and call if culture becomes positive. Patient follows with provider in [place]. ESSION: Pelvic Pressure Pain assessment and plan: None DISCUSSED WITH [facility] PROVIDER: Dr. Vivar; Dr. Lazo DISPOSITION: Discharge to Home Normal [facility] Urinalysis complete panel (U )Ordered By: Brittanie Alvarado on 12-17-2022 Bacteria LM.HPF (Urine sed) [#/Area] Moderate Abnormal Negative /HPF [facility] Bilirubin Ql (U) Negative Negative mg/dL [facility] Calcium oxalate crystals LM.HPF (Urine sed) [#/Area] Moderate Abnormal Negative /HPF [facility] Clarity (U) Clear Clear [facility] Color (U) Light Yellow Lt. Yellow [facility] Epithelial cells.squamous LM.HPF (Urine sed) [#/Area] 6-[address] [facility] Glucose Ql (U) Normal Normal (<70) mg/dL [facility] Hemoglobin Ql (U) Negative Negative mg/dL [facility] Hyaline casts Auto (Urine sed) [#/Area] Negative Negative /LPF [facility] Interpretation and review of laboratory results Abnormal [facility] Ketones (U) [Mass/Vol] Negative Negat latricia mg/dL [facility] Leukocyte esterase Test strip Ql (U) 25 Abnormal Negative Marleni/uL [facility] Mucus LM.HPF (Urine sed) [#/Area] Few Negative /LPF [facility] Nitrite Ql (U) Negative Negative [facility] th pH (U) 6.0 [pH] 5.0 - 8.0 pH [facility] Protein (U) [Mass/Vol] Negative Negat latricia mg/dL [facility] RBC LM.HPF (Urine sed) [#/Area] 0-2 [facility] Specific gravity (U) [Rel density] 1.017 1.005 - 1.030 [facility] Urobilinogen (U) [Mass/Vol] Normal Normal (0-1) mg/dL [facility] WBC LM.HPF (Urine sed) [#/Area] 3-5 [facility] FFNon 12-11-2022 Fibronectin Negative Normal Negative [facility] ([place]) Comment on above: Performed By: #### C MACARIO CHAHAL, ANEU #### [address] [address] .Auto Diffon 12-10-2022 Basophil, Absolute 0.0 10 3/mcL Normal 0.0-0.3 [facility] ([place]) Comment on above: Performed By: #### MILI VANESSA #### [address] [address] Basophils/100 WBC (Bld) 0.2 % Normal 0.0-2.5 [facility] ([place]) Comment on above: Performed By: #### Rupesh VERDUGO UA #### [address] [address] Eosinophil, Absolute 0.1 10 3/mcL Normal 0.0-0.7 [facility] ([place]) Comment on above: Performed By: #### U KARTIK UA #### [address] [address] Eosinophils/100 WBC (Bld) 1.0 % Normal 0.0-6.0 [facility] ([place]) Comment on above: Performed By: #### Rupesh VERDUGO UA #### [address] [address] Lymphocyte, Absolute 1.7 10 3/mcL Normal 0.9-4.3 [facility] ([place]) Comment on above: Performed By: #### MILI VANESSA #### [address] [address] Lymphocytes/100 WBC (Bld) 15.3 % Low 20.0-40.0 [facility] ([place]) Comment on above: Performed By: #### MILI VANESSA #### Barbara [address] [address] Monocyte, Absolute 0.8 10 3/mcL Normal 0.1-1.4 [facility] ([place]) Comment on above: Performed By: #### MILI VANESSA #### Barbara [address] [address] Monocytes/100 WBC (Bld) 7.1 % Normal 2.0-13.0 [facility] ([place]) Comment on above: Performed By: #### MILI VANESSA #### Barbara [address] [address] Neutrophils/100 WBC (Bld) 76.4 % High 50.0-75.0 [facility] ([place]) Comment on above: Performed By: #### MILI VANESSA #### Barbara [address] [address] .Manual Diffon 12-10-2022 Bands 1.0 % Normal 0.0-5.0 [facility] ([place]) Comment on above: Performed By: #### MILI VANESSA #### Barbara [address] [address] Basophil %, Manual 0.0 % Normal 0.0-2.5 [facility] ([place]) Comment on above: Performed By: #### MILI VANESSA #### Barbara [address] [address] Basophil, Abs Manual 0.0 10 3/mcL Normal 0.0-0.3 [facility] ([place]) Comment on above: Performed By: #### MILI VANESSA #### [address] [address] Eosinophil %, Manual 0.0 % Normal 0.0-6.0 [facility] ([place]) Comment on above: Performed By: #### Rupesh VERDUGO UA #### [address] [address] Eosinophil, Abs Manual 0.0 10 3/mcL Normal 0.0-0.7 [facility] ([place]) Comment on above: Performed By: #### Rupesh VERDUGO UA #### [address] [address] Lymphocyte %, Manual 14.0 % Low 20.0-40.0 [facility] ([place]) Comment on above: Performed By: #### MILI VANESSA #### [address] [address] Lymphocyte, Abs Manual 1.6 10 3/mcL Normal 0.9-4.3 [facility] ([place]) Comment on above: Performed By: #### MILI VANESSA #### [address] [address] Metamyelocyte 1.0 % Normal [facility] ([place]) Comment on above: Performed By: #### MILI VANESSA #### [address] [address] Monocyte %, Manual 8.0 % Normal 2.0-13.0 [facility] ([place]) Comment on above: Performed By: #### Rupesh VERDUGO UA #### [address] [address] Monocyte, Abs Manual 0.9 10 3/mcL Normal 0.1-1.4 [facility] ([place]) Comment on above: Performed By: #### Rupesh VERDUGO UA #### [address] [address] Myelocyte 3.0 % Normal [facility] ([place]) Comment on above: Performed By: #### Rupesh VERDUGO UA #### [address] [address] Neutrophil %, Manual 73.0 % Normal 50.0-75.0 [facility] ([place]) Comment on above: Performed By: #### MILI VANESSA #### Barbara [address] [address] Neutrophil, Abs Manual 8.2 10 3/mcL High 2.3-8.1 [facility] ([place]) Comment on above: Performed By: #### MILI VANESSA #### Barbara [address] [address] Nucleated RBC 0.0 /100 WBC Normal [facility] ([place]) Comment on above: Performed By: #### MILI VANESSA #### Barbara [address] [address] .Morphon 12-10-2022 Platelet Estimate Normal Normal [facility] ([place]) Comment on above: Performed By: #### MILI VANESSA #### Barbara [address] [address] RBC morphology finding Nom (Bld) See Below Normal [facility] ([place]) Comment on above: Result Comment: RBC Morphology appears Normal Performed By: #### MILI VANESSA #### Barbara [address] [address] .NEUABSon 12-10-2022 Neutrophil, Absolute 8.5 10 3/mcL High 2.3-8.1 [facility] ([place]) Comment on above: Performed By: #### MILI VANESSA #### Barbara [address] [address] CBCon 12-10-2022 Erythrocyte distribution width (RBC) [Ratio] 13.9 % Normal 11.5-15.5 [facility] ([place]) Comment on above: Performed By: #### MILI VANESSA #### Barbara [address] [address] Hematocrit (Bld) [Volume fraction] 30.3 % Low 34.0-46.0 [facility] ([place]) Comment on above: Performed By: #### Rupesh VERDUGO UA #### [address] [address] Hgb 10.0 G/dL Low 12.0-16.0 [facility] ([place]) Comment on above: Performed By: #### Rupesh VERDUGO UA #### Barbara [address] [address] MCH (RBC) [Entitic mass] 29.0 pg Normal 27.0-33.0 [facility] ([place]) Comment on above: Performed By: #### Rupesh VERDUGO UA #### [address] [address] MCHC 33.1 G/dL Normal 32.0-36.0 [facility] ([place]) Comment on above: Performed By: #### Rupesh VERDUGO UA #### [address] [address] MCV (RBC) [Entitic vol] 87.5 fL Normal 80.0-99.0 [facility] ([place]) Comment on above: Performed By: #### Rupesh VERDUGO UA #### [address] [address] Platelet 269 10 3/mcL Normal 150-450 [facility] ([place]) Comment on above: Performed By: #### Rupesh VERDUGO UA #### [address] [address] Platelet mean volume (Bld) [Entitic vol] 7.7 fL Normal 6.6-10.5 [facility] ([place]) Comment on above: Performed By: #### Rupesh VERDUGO UA #### [address] [address] RBC 3.46 10 6/mcL Low 4.10-5.30 [facility] ([place]) Comment on above: Performed By: #### U KARTIK, UA #### [address] [address] WBC 11.2 10 3/mcL High 4.5-10.8 [facility] ([place]) Comment on above: Performed By: #### U KARTIK, UA #### [facility] [address] [place], [place] [address] LABORATORYOrdered By: William Urrutia on 12-10-2022 Fibronectin. Ql (Vag fld) Negative (12/10/22 12:11 PM) Invalid Interpretation Code Negative AH Manual Chem SS ED Nursing Noteon 10-28-2022 ED Nursing Note Resident at bedside doing US. Diandra Allison RN 10/28/22 1428 Normal [facility] ED Provider Noteon 3 ED Provider Note EMERGENCY DEPARTMENT ENCOUNTER Pt Name: Selene Larkin Birthdate 1995 Date of evaluation: 10/28/2022 ED Provider: LITZY MULLINS MD CHIEF COMPLAINT Chief Complaint Patient presents with Fall Pt. States she is 25 weeks and fell down 6 stairs this morning at 0600. Denies LOC but endorses head injury and presents with bruising to the forehead. Pt. Endorses vaginal spotting and pelvic pain since the injury occurred. Denies pain upon palpation of cervical spine/shoulders. HISTORY OF PRESENT ILLNESS (Location/Symptom, Timing/Onset, Context/Setting, Quality, Duration, Modifying Factors, Severity) Note limiting factors. I wore appropriate PPE for the entirety of this encounter. HPI Selene Larkin is a 27 y.o. female who presents to the emergency department for fall. Patient is with prior delivery. Patient states she is currently 25 weeks . At approxi-6 AM this morning she fell down 6 steps hitting her head and stomach. States she is having lower back pain and lower abdominal cramping. When the event first happened, she was having some vaginal spotting, however when she recently to the bathroom here in the ED, she was no longer bleeding. Patient states that she has some pressure with urinating she is normal for her. She is unsure if she has had gushes of fluid as she has bladder problems and has issues with urinary incontinence. States these gushes of fluid have not increased in frequency or amount. Denies taking blood thinners and did not lose consciousness or fall. Patient's HOMOEOPATH is Dr. Yang at [place]. States that she does have a placenta circumvallate. She has not set up with OB care here in the area. Nursing Notes were reviewed. Limitations to history: None Outside historians: None REVIEW OF SYSTEMS Review of Systems Pertinent positives and negatives as per HPI. PAST MEDICAL HISTORY Past Medical History: Diagnosis Date Anemia Asthma Endometriosis Hypoglycemia Interstitial cystitis SURGICAL HISTORY Past Surgical History: Procedure Laterality Date SECTION (HISTORICAL) CHOLECYSTECTOMY N/A LAPAROSCOPY DIAGNOSTIC / BIOPSY / ASPIRATION / LYSIS CURRENT MEDICATIONS There are no discharge medications for this patient. ALLERGIES Penicillins FAMILY HISTORY No family history on file. SOCIAL HISTORY Social History Socioeconomic History Marital status: Tobacco Use Smoking status: Never Smokeless tobacco: Never Substance and Sexual Activity Alcohol use: No Drug use: No SCREENINGS PHYSICAL EXAM ED Triage Vitals Temp Heart Rate Resp BP 10/28/22 1257 10/28/22 1257 10/28/22 1257 10/28/22 1257 37 ?C (98.6 ?F) 78 20 94/59 SpO2 Temp Source Heart Rate Source Patient Position 10/28/22 1257 10/28/22 1257 10/28/22 1257 10/28/22 1317 98 % Temporal Monitor Lying BP Location FiO2 (%) 10/28/22 1317 -- Left arm Physical Exam Constitutional: General: She is not in acute distress. HENT: Head: Normocephalic. Comments: 1.5 x 1.5 cm hematoma right forehead with slight ecchymosis but no wound. Right Ear: External ear normal. Left Ear: External ear normal. Nose: Nose normal. Comments: No nasal septal hematoma. Mouth/Throat: Comments: No blood or trauma the oropharynx. Midface stable nontender. Eyes: Pupils: Pupils are equal, round, and reactive to light. Comments: Pupils 3 mm bilaterally. Neck: Comments: No C-spine tenderness. Cardiovascular: Rate and Rhythm: Normal rate and regular rhythm. Pulses: Normal pulses. Heart sounds: Normal heart sounds. No murmur heard. Pulmonary: Effort: Pulmonary effort is normal. Breath sounds: Normal breath sounds. Chest: Chest wall: No tenderness. Abdominal: Palpations: Abdomen is soft. Tenderness: There is no abdominal tenderness. There is no guarding or rebound. Comments: Gravid abdomen. Bilateral flanks atraumatic. Genitourinary: Comments: Good gluteal squeeze. Musculoskeletal: General: Normal range of motion. Right lower leg: No edema. Left lower leg: No edema. Comments: Pelvis stable to AP lateral compression. TLS spines nontender. Skin: General: Skin is warm and dry. Neurological: Mental Status: She is alert. Sensory: No sensory deficit. Motor: No weakness. Comments: GCS 15. DIAGNOSTIC RESULTS RADIOLOGY (Per Emergency Physician): Interpretation per the Radiologist below, if available at the time of this note: [facility] SPECIFIC POCUS ORDER (Results Pending) LABS: Labs Reviewed - No data to display All other labs were within normal range or not returned as of this dictation. EMERGENCY DEPARTMENT COURSE and DIFFERENTIAL DIAGNOSIS/MDM: Vitals: Vitals: 10/28/22 1257 10/28/22 1317 BP: 94/59 98/52 BP Location: Left arm Patient Position: Lying Pulse: 78 81 Resp: 20 18 Temp: 37 ?C (98.6 ?F) 37.1 ?C (98.7 ?F) TempSrc: Temporal Oral SpO2: 98% 96% Weight: 79 (more content not included)... Normal [facility] ED Provider Note Emergency Department Encounter [facility] ED Patient: Selene Larkin : 1995 Date of Evaluation: 10/28/2022 ED Supervising Physician: Moses Holden MD I independently examined and evaluated Selene Larkin. This will serve as my Supervisory note and shared attestation. I did perform a substantive portion of the visit including all aspects of the Medical Decision Making. I wore appropriate PPE for the entirety of this encounter. In brief, Selene Larkin is a 27 y.o. female that presents to the emergency department for evaluation of a fall. Patient is approximate 25 weeks . She did hit her head but no loss of consciousness. Complains of lower abdominal pressure, concerned that the baby is not moving as much. Focused exam: Awake and alert. Afebrile. Nontoxic. Small abrasion to the right upper forehead area. No palpable step-off. The rest of the head is atraumatic. Cervical spine nontender. Lungs clear to auscultation. Heart regular rate and rhythm. Abdomen soft and gravid, no focal tenderness. Equal distal pulses. Brief ED course/MDM: I supervised resident physician for [id number] ultrasound that shows good movement. Recommend monitoring in labor and delivery. We will discharge patient from here to go to labor and delivery at [facility] as there is no labor and delivery available at this hospital at this time. MDM elements: The patient presented with chief complaint of trauma evaluation. The differential diagnosis associated with this patient's presentation includes head injury, spine injury, intra-abdominal injury. Our workup consisted of ordering/reviewing: [id number] ultrasound. The patient will be Discharged. Patient is in agreement with this plan. All diagnostic, treatment, and disposition decisions were made by myself in conjunction with the Resident. I also supervised rashid portions of any procedures performed by the Resident. For all further details of the patient's emergency department visit, please see their documentation. (Comment: Please note this report has been produced using speech recognition software and may contain errors related to that system including errors in grammar, punctuation, and spelling, as well as words and phrases that may be inappropriate. If there are any questions or concerns please feel free to contact the dictating provider for clarification.) Moses Holden MD Acute Care [facility] Moses Holden MD 10/28/222058 [facility] Progress Noteon 10-28-2022 Progress Note --- Attestation signed by Krista Jansen DO at 10/29/2022 12:02 AM Hospital Care (Independent): I independently saw and evaluated the patient. I agree with the findings and plan of care as documented in the resident's note. Department of Obstetrics and Gynecology Labor and Delivery Triage Note CHIEF COMPLAINT: Fall HISTORY OF PRESENT ILLNESS: The patient is a 27 y.o. approx 25 weeks gestational age. OB History 1 Para Term AB Living 1 SAB IAB Ectopic Multiple Live Births Patient presents with a chief complaint as above. She was getting a bottle for her when she slipped and fell down a flight of stairs this Am at 6. She hit her head and her abdomen. She denies pain to extremities; states a majority of her pain is on her side when she hit the steps. This does wrap around to the back side. She describes small pink discharge; no clear vaginal bleeding. Initally DFM that resolved when on monitor. Denies DFM/VB/LOF/CTX Estimated Due Date: Estimated Date of Delivery: None noted. PAST MEDICAL HISTORY: Past Medical History: Diagnosis Date Anemia Asthma Endometriosis Hypoglycemia Interstitial cystitis PAST SURGICAL HISTORY: Past Surgical History: Procedure Laterality Date SECTION (HISTORICAL) CHOLECYSTECTOMY N/A LAPAROSCOPY DIAGNOSTIC / BIOPSY / ASPIRATION / LYSIS SOCIAL HISTORY: Social History Socioeconomic History Marital status: Tobacco Use Smoking status: Never Smokeless tobacco: Never Substance and Sexual Activity Alcohol use: No Drug use: No MEDICATIONS: No current facility-administered medications for this encounter. CARE: Complicated by: Trauma; hx short cervix REVIEW OF SYSTEMS: Pertinent items are noted in HPI. APPEARANCE: Pain: No PHYSICAL EXAM: Vital Signs: VS wnl-reviewed/Respiratio ns normal effort Vitals: 10/28/22 1525 Weight: 175 lb (79.4 kg) Height: 5' 3 (1.6 m) Abdomen: soft, gravid, nontender, nondistended, no abnormal masses, no epigastric pain Uterus: gravid/non-tender LE Edema: trace Speculum Exam: no pooling of fluid seen, Nitrizine test is negative, Ferning test is negative heart rate: Category I Cervix: Visually closed Contraction frequency: none Membranes: Intact RESULTS: NST: Reactive TRIAGE COURSE: Patient with fall at 6 am. No vaginal bleeding noted on exam. Fetus active on US; no indication for rhogam as A+ BT. Will observe FHT for one hour and discharge as long as FHT reassuring. Patient removed monitors and requsting to leave. Will discharge. IMPRESSION: Trauma Pain assessment and plan: None DISCUSSED WITH C PROVIDER: Dr. Jansen DISPOSITION: Discharge to Home Normal [facility] .Urinalysis Microscopic (AO) on 10-19-2022 UA Bacteria Trace Abnormal [facility] ([place]) Comment on above: Performed By: #### U AMICAO, UA #### [facility] [address], [place] [address] UA RBC 0-5 Abnormal None Seen [facility] ([place]) Comment on above: Performed By: #### U AMICAO, UA #### [facility] [address], [place] [address] UA Squam Epithelial 5-10 Abnormal None Seen [facility] ([place]) Comment on above: Performed By: #### U AMICAO, UA #### [facility] [address], [place] [address] UA WBC 0-5 Abnormal None Seen [facility] ([place]) Comment on above: Performed By: #### U AMICAO, UA #### [facility] [address], [place] [address] LABORATORYOrdered By: Yasmeen Hickey on 10-19-2022 Appearance (U) Clear (10/19/22 6:24 PM) Invalid Interpretation Code Clear AO Auto Urine SS Bacteria LM.HPF (Urine sed) [#/Area] Trace /HPF Invalid Interpretation Code AO Auto Urine SS Bilirubin Ql (U) Negative (10/19/22 6:24 PM) Invalid Interpretation Code Negative AO Auto Urine SS Color (U) [facility] *ABN* (10/19/22 6:24 PM) Invalid Interpretation Code AO Auto Urine SS Glucose Test strip (U) [Mass/Vol] 100 mg/dL Invalid Interpretation Code Negativemg/d L AO Auto Urine SS Hemoglobin Auto test strip (U) [Mass/Vol] Negative (10/19/22 6:24 PM) Invalid Interpretation Code Negative AO Auto Urine SS Ketones Ql (U) Negative Invalid Interpretation Code Negativemg/d L AO Auto Urine SS UA Leuk Est Negative (10/19/22 6:24 PM) Invalid Interpretation Code Negative AO Auto Urine SS UA Nitrite Positive *ABN* (10/19/22 6:24 PM) Invalid Interpretation Code Negative AO Auto Urine SS UA pH 5.0 (10/19/22 6:24 PM) Invalid Interpretation Code 5.0 - 8.0 AO Auto Urine SS UA Protein Trace mg/dL Invalid Interpretation Code Negativemg/d L AO Auto Urine SS UA RBC 0-5 /HPF Invalid Interpretation Code None Seen/HPF AO Auto Urine SS UA Spec Grav 1.020 (10/19/22 6:24 PM) Invalid Interpretation Code 1.015-1.025 AO Auto Urine SS UA Specimen Type Clean Catch (10/19/22 6:24 PM) Invalid Interpretation Code AO Auto Urine SS UA Squam Epithelial 5-10 /HPF Invalid Interpretation Code None Seen/HPF AO Auto Urine SS UA Urobilinogen 1.0 E.U./dL Invalid Interpretation Code 0.2-1.0E.U./ dL AO Auto Urine SS WBC LM.HPF (Urine sed) [#/Area] 0-5 /HPF Invalid Interpretation Code None Seen/HPF AO Auto Urine SS UAon 10-19-2022 Color (U) [facility] Abnormal [facility] ([place]) Comment on above: Performed By: #### U AMICAO, UA #### [address] [address] Glucose (U) [Mass/Vol] 100 mg/dL Abnormal Negative [facility] ([place]) Comment on above: Performed By: #### U AMICAO, UA #### [address] [address] Ketones Ql (U) Negative Normal Negative [facility] ([place]) Comment on above: Performed By: #### U AMICAO, UA #### [address] [address] UA Appear Clear Normal Clear [facility] ([place]) Comment on above: Performed By: #### U AMICAO, UA #### [address] [address] UA Blood Negative Normal Negative [facility] ([place]) Comment on above: Performed By: #### U AMICAO, UA #### [address] [address] UA Leuk Est Negative Normal Negative [facility] ([place]) Comment on above: Performed By: #### U AMICAO, UA #### [place] [address] [address] UA Nitrite Positive Abnormal Negative [facility] ([place]) Comment on above: Performed By: #### U AMICAO, UA #### [place] [address] [address] UA pH 5.0 Normal 5.0 - 8.0 [facility] ([place]) Comment on above: Performed By: #### U AMICAO, UA #### [place] [address] [address] UA Protein Trace Normal Negative [facility] ([place]) Comment on above: Performed By: #### U AMICAO, UA #### [place] [address] [address] UA Spec Grav 1.020 Normal 1.015-1.025 [facility] ([place]) Comment on above: Performed By: #### U AMICAWillian, UA #### [place] [address] [address] UA Specimen Type Clean Catch Normal [facility] ([place]) Comment on above: Performed By: #### U AMICAO, UA #### [place] [address] [address] UA Urobilinogen 1.0 E.U./dL Normal 0.2-1.0 [facility] ([place]) Comment on above: Performed By: #### U AMICAO, UA #### [address] [address] Urobilinogen (U) [Mass/Vol] Negative Normal Negative [facility] ([place]) Comment on above: Performed By: #### U AMICAO, UA #### [place] [address] [address] US ABDOMEN LIMITEDon 05-16-2 023 US ABDOMEN LIMITED ORIGINAL EXAMINATION: RIGHT UPPER QUADRANT ULTRASOUND 09/30/2022 11:52 am COMPARISON: Prior pelvic ultrasound dated 06/01/2020. HISTORY: ORDERING SYSTEM PROVIDED HISTORY: Reason for Exam: abdominal pain Mid pelvic pain in . FINDINGS: LIVER: The liver demonstrates normal echogenicity without evidence of intrahepatic biliary ductal dilatation. BILIARY SYSTEM: The gallbladder is surgically absent. Common bile duct is within normal limits measuring 4 mm. RIGHT KIDNEY: The right kidney is grossly unremarkable without evidence of hydronephrosis. PANCREAS: Visualized portions of the pancreas are unremarkable. OTHER: No evidence of right upper quadrant ascites. The right lower quadrant was scanned. The appendix is not well seen however no secondary inflammatory signs such as free fluid are noted. Pelt Dropper reports no rebound pain. IMPRESSION: Unremarkable right upper quadrant ultrasound. Appendix is not visualized within the right lower quadrant. No secondary inflammatory signs are seen on sonography. Pelt Dropper reports no rebound pain to suggest appendicitis. Interpreted by: Miguel Hannah MD Preliminary Report By: Miguel Hannah MD Electronically signed By Miguel Hannah MD Dictated Date: 10/01/2022 1:14:47 PM Prelim Date: 10/01/2022 1:17:12 PM Sign Date: 10/01/2022 1:17:12 PM Ordering Provider: EDDIE Rosen [facility] ([place]) .Auto Diffon 09-30-2022 Basophil, Absolute 0.0 10 3/mcL Normal 0.0-0.2 [facility] ([place]) Comment on above: Performed By: #### MILI VANESSA #### [address] [address] Basophils/100 WBC (Bld) 0.4 % Normal 0.0-2.5 [facility] ([place]) Comment on above: Performed By: #### MILI VANESSA #### [address] [address] Eosinophil, Absolute 0.1 10 3/mcL Normal 0.0-0.4 [facility] ([place]) Comment on above: Performed By: #### MILI VANESSA #### [address] [address] Eosinophils/100 WBC (Bld) 0.8 % Normal 0.0-7.0 [facility] ([place]) Comment on above: Performed By: #### MILI VANESSA #### [address] [address] Lymphocyte, Absolute 1.5 10 3/mcL Normal 0.8-3.9 [facility] ([place]) Comment on above: Performed By: #### Rupesh VERDUGO UA #### [address] [address] Lymphocytes/100 WBC (Bld) 15.5 % Normal 10.0-50.0 [facility] ([place]) Comment on above: Performed By: #### Rupesh VERDUGO UA #### [address] [address] Monocyte, Absolute 0.6 10 3/mcL Normal 0.2-1.0 [facility] ([place]) Comment on above: Performed By: #### Rupesh VERDUGO UA #### [address] [address] Monocytes/100 WBC (Bld) 6.5 % Normal 1.7-13.0 [facility] ([place]) Comment on above: Performed By: #### Rupesh VERDUGO UA #### [address] [address] Neutrophils/100 WBC (Bld) 76.8 % Normal 37.0-80.0 [facility] ([place]) Comment on above: Performed By: #### Rupesh VERDUGO UA #### [address] [address] .GFRon 09-30-2022 GFR 170 ml/min/1.73sqm Normal [facility] ([place]) Comment on above: Result Comment: GFR Population mean for , Non- Americans Ages 20-29 = 116 mL/min/1.73 sq.m. Ages 30-39 = 107 mL/min/1.73 sq.m. Ages 40-49 = 99 mL/min/1.73 sq.m. Ages 50-59 = 93 mL/min/1.73 sq.m. Ages 60-69 = 85 mL/min/1.73 sq.m. Ages 70+ = 75 mL/min/1.73 sq.m. Chronic Kidney Disease: Less than 60 mL/min/1.73 square meters End Stage Renal Disease: Less than 15 mL/min/1.73 square meters Performed By: #### C MACARIO CHAHAL, ANEU #### [place] [address] [address] GFR Non- 140 ml/min/1.73sqm Normal [facility] ([place]) Comment on above: Result Comment: GFR Population mean for , Non- Americans Ages 20-29 = 116 mL/min/1.73 sq.m. Ages 30-39 = 107 mL/min/1.73 sq.m. Ages 40-49 = 99 mL/min/1.73 sq.m. Ages 50-59 = 93 mL/min/1.73 sq.m. Ages 60-69 = 85 mL/min/1.73 sq.m. Ages 70+ = 75 mL/min/1.73 sq.m. Chronic Kidney Disease: Less than 60 mL/min/1.73 square meters End Stage Renal Disease: Less than 15 mL/min/1.73 square meters Performed By: #### C MACARIO CHAHAL, ANEU #### [address] [address] .NEUABSon 09-30-2022 Neutrophil, Absolute 7.3 10 3/mcL High 2.9-6.2 [facility] ([place]) Comment on above: Performed By: #### U KARTIK UA #### [address] [address] AMYon 09-30-2022 Amylase [Catalytic activity/Vol] 34 U/L Normal 25-115 [facility] ([place]) Comment on above: Performed By: #### U AMICAO UA #### [address] [address] CBCon 09-30-2022 Erythrocyte distribution width (RBC) [Ratio] 13.3 % Normal 11.5-14.5 [facility] ([place]) Comment on above: Performed By: #### U AMICECEO UA #### [address] [address] Hematocrit (Bld) [Volume fraction] 28.9 % Low 37.0-47.0 [facility] ([place]) Comment on above: Performed By: #### MILI VANESSA #### [address] [address] Hgb 9.7 G/dL Low 12.0-16.0 [facility] ([place]) Comment on above: Performed By: #### MILI VANESSA #### [place] [address] [address] MCH (RBC) [Entitic mass] 28.3 pg Normal 27.0-31.2 [facility] ([place]) Comment on above: Performed By: #### MILI VANESSA #### [address] [address] MCHC 33.7 G/dL Normal 33.0-37.0 [facility] ([place]) Comment on above: Performed By: #### MILI VANESSA #### [address] [address] MCV (RBC) [Entitic vol] 84.0 fL Normal 80.0-94.0 [facility] ([place]) Comment on above: Performed By: #### MILI VANESSA #### [address] [address] Platelet 282 10 3/mcL Normal 130-400 [facility] ([place]) Comment on above: Performed By: #### MILI VANESSA #### [address] [address] Platelet mean volume (Bld) [Entitic vol] 6.9 fL Low 7.4-10.4 [facility] ([place]) Comment on above: Performed By: #### MILI VANESSA #### [address] [address] RBC 3.44 10 6/mcL Low 4.20-5.40 [facility] ([place]) Comment on above: Performed By: #### MILI VANESSA #### [address] [address] WBC 9.5 10 3/mcL Normal 4.6-10.8 [facility] ([place]) Comment on above: Performed By: #### U MILI VERDUGO #### [address] [address] CMPon 09-30-2022 ALT [Catalytic activity/Vol] 10 U/L Low 14-59 [facility] ([place]) Comment on above: Performed By: #### MACARIO OROZCO ANEU #### [address] [address] Albumin Level 2.7 G/dL Low 3.5-5.0 [facility] ([place]) Comment on above: Performed By: #### MACARIO OROZCO ANEU #### [address] [address] Albumin/Globulin [Mass ratio] 0.9 {ratio} Low 1.1-2.5 [facility] ([place]) Comment on above: Performed By: #### MACARIO OROZCO, ANEU #### [address] [address] ALP [Catalytic activity/Vol] 55 U/L Normal 40-135 [facility] ([place]) Comment on above: Performed By: #### MACARIO OROZCO, ANEU #### [address] [address] AST [Catalytic activity/Vol] 11 U/L Normal 10-40 [facility] ([place]) Comment on above: Performed By: #### MACARIO OROZCO, ANEU #### [address] [address] Bili Total 0.2 mg/dL Normal 0.2-1.0 [facility] ([place]) Comment on above: Result Comment: Use of this assay is not recommended for patients undergoing treatment with eltrombopag due to the potential for falsely elevated results. Performed By: #### MACARIO OROZCO, ANEU #### [address] [address] BUN/Creatinine Ratio 10 ratio Normal 7-27 [facility] ([place]) Comment on above: Performed By: #### C MACARIO CHAHAL, ANEU #### [address] [address] Calcium [Mass/Vol] 8.2 mg/dL Low 8.4-10.2 [facility] ([place]) Comment on above: Performed By: #### C GRACIE CHAHALIFF, ANEU #### [address] [address] Chloride [Moles/Vol] 107 mmol/L Normal 98-107 [facility] ([place]) Comment on above: Performed By: #### C MACARIO CHAHAL, ANEU #### [address] [address] CO2 [Moles/Vol] 22 mmol/L Normal 22-29 [facility] ([place]) Comment on above: Performed By: #### C MACARIO CHAHAL, ANEU #### [address] [address] Creatinine [Mass/Vol] 0.52 mg/dL Low 0.55-1.02 [facility] ([place]) Comment on above: Performed By: #### MACARIO OROZCO, ANEU #### [address] [address] Electrolyte Balance 10.0 mEq/L Normal 4.0-15.0 [facility] ([place]) Comment on above: Performed By: #### C MACARIO CHAHAL, ANEU #### [address] [address] Globulin 2.9 G/dL Normal [facility] ([place]) Comment on above: Performed By: #### MACARIO OROZCO, ANEU #### [address] [address] Glucose [Mass/Vol] 98 mg/dL Normal 70-105 [facility] ([place]) Comment on above: Performed By: #### MACARIO OROZCO, ANEU #### [address] [address] Potassium [Moles/Vol] 3.5 mmol/L Normal 3.5-5.1 [facility] ([place]) Comment on above: Performed By: #### C BC, ADIFF, ANEU #### [place] [address] [place], [place] [address] Sodium [Moles/Vol] 139 mmol/L Normal 136-145 [facility] ([place]) Comment on above: Performed By: #### C BC, ADIFF, ANEU #### [place] [address] [place], [place] [address] Total Protein 5.6 G/dL Low 6.4-8.2 [facility] ([place]) Comment on above: Performed By: #### C BC, MACARIO, ANEU #### [place] [address] [place], [place] [address] Urea nitrogen [Mass/Vol] 5 mg/dL Low 7-18 [facility] ([place]) Comment on above: Performed By: #### C BC, GRACIEIFF, ANEU #### [place] [address] [place], [place] [address] LABORATORYOrdered By: SYSTEM SYSTEM on 09-30-2022 Albumin BCP dye [Mass/Vol] 2.7 G/dL Invalid Interpretation Code 3.5 - 5.0 G/dL AO ADM SS Albumin/Globulin [Mass ratio] 0.9 {ratio} Invalid Interpretation Code 1.1 - 2.5 ratio AO ADM SS ALP [Catalytic activity/Vol] 55 U/L Invalid Interpretation Code 40 - 135 U/L AO ADM SS ALT With P-5'-P [Catalytic activity/Vol] 10 U/L Invalid Interpretation Code 14 - 59 U/L AO ADM SS Amylase [Catalytic activity/Vol] 34 U/L Invalid Interpretation Code 25 - 115 U/L AO ADM SS AST With P-5'-P [Catalytic activity/Vol] 11 U/L Invalid Interpretation Code 10 - 40 U/L AO ADM SS Bilirubin [Mass/Vol] 0.2 mg/dL Invalid Interpretation Code 0.2 - 1.0 mg/dL AO ADM SS Calcium [Mass/Vol] 8.2 mg/dL Invalid Interpretation Code 8.4 - 10.2 mg/dL AO ADM SS Chloride [Moles/Vol] 107 mmol/L Invalid Interpretation Code 98 - 107 mmol/L AO ADM SS CO2 [Moles/Vol] 22 mmol/L Invalid Interpretation Code 22 - 29 mmol/L AO ADM SS Creatinine [Mass/Vol] 0.52 mg/dL Invalid Interpretation Code 0.55 - 1.02 mg/dL AO ADM SS Electrolyte Balance 10.0 mEq/L Invalid Interpretation Code 4.0 - 15.0 mEq/L AO ADM SS GFR/1.73 sq M.predicted among blacks MDRD (S/P/Bld) [Vol rate/Area] 170 ml/min/1.73sqm Invalid Interpretation Code AO Chemistry S GFR/1.73 sq M.predicted among non-blacks MDRD (S/P/Bld) [Vol rate/Area] 140 ml/min/1.73sqm Invalid Interpretation Code AO Chemistry S Globulin 2.9 G/dL Invalid Interpretation Code AO ADM SS Glucose [Mass/Vol] 98 mg/dL Invalid Interpretation Code 70 - 105 mg/dL AO ADM SS Lipase [Catalytic activity/Vol] 40 U/L Invalid Interpretation Code 16 - 77 U/L AO ADM SS Potassium [Moles/Vol] 3.5 mmol/L Invalid Interpretation Code 3.5 - 5.1 mmol/L AO ADM SS Protein [Mass/Vol] 5.6 G/dL Invalid Interpretation Code 6.4 - 8.2 G/dL AO ADM SS Sodium [Moles/Vol] 139 mmol/L Invalid Interpretation Code 136 - 145 mmol/L AO ADM SS Urea nitrogen [Mass/Vol] 5 mg/dL Invalid Interpretation Code 7 - 18 mg/dL AO ADM SS Urea nitrogen/Creatinine [Mass ratio] 10 ratio Invalid Interpretation Code 7 - 27 ratio AO ADM SS LABORATORYOrdered By: Yasmeen Hickey on 09-30-2022 Appearance (U) Clear (09/30/22 10:45 AM) Invalid Interpretation Code Clear AO Auto Urine SS Bilirubin Ql (U) Negative (09/30/22 10:45 AM) Invalid Interpretation Code Negative AO Auto Urine SS Color (U) Yellow (09/30/22 10:45 AM) Invalid Interpretation Code AO Auto Urine SS Glucose Test strip (U) [Mass/Vol] Negative Invalid Interpretation Code Negativemg/d L AO Auto Urine SS Hemoglobin Auto test strip (U) [Mass/Vol] Trace *ABN* (09/30/22 10:45 AM) Invalid Interpretation Code Negative AO Auto Urine SS Ketones Ql (U) Negative Invalid Interpretation Code Negativemg/d L AO Auto Urine SS UA Leuk Est Negative (09/30/22 10:45 AM) Invalid Interpretation Code Negative AO Auto Urine SS UA Nitrite Negative (09/30/22 10:45 AM) Invalid Interpretation Code Negative AO Auto Urine SS UA pH 5.5 (09/30/22 10:45 AM) Invalid Interpretation Code 5.0 - 8.0 AO Auto Urine SS UA Protein Negative Invalid Interpretation Code Negativemg/d L AO Auto Urine SS UA Spec Grav >=1.030 *ABN* (09/30/22 10:45 AM) Invalid Interpretation Code 1.015-1.025 AO Auto Urine SS UA Specimen Type Clean Catch (09/30/22 10:45 AM) Invalid Interpretation Code AO Auto Urine SS UA Urobilinogen 0.2 E.U./dL Invalid Interpretation Code 0.2-1.0E.U./ dL AO Auto Urine SS LABORATORYOrdered By: Kaitlynn Gary on 09-30-2022 Basophil, Absolute 0.0 103/mcL Invalid Interpretation Code 0.0 - 0.2 10^3/mcL AO Workflow SS Basophils/100 WBC (Bld) 0.4 % Invalid Interpretation Code 0.0 - 2.5 % AO Workflow SS Eosinophil, Absolute 0.1 103/mcL Invalid Interpretation Code 0.0 - 0.4 10^3/mcL AO Workflow SS Eosinophils/100 WBC (Bld) 0.8 % Invalid Interpretation Code 0.0 - 7.0 % AO Workflow SS Erythrocyte distribution width (RBC) [Ratio] 13.3 % Invalid Interpretation Code 11.5 - 14.5 % AO Workflow SS Hematocrit (Bld) [Volume fraction] 28.9 % Invalid Interpretation Code 37.0 - 47.0 % AO Workflow SS Hemoglobin (Bld) [Mass/Vol] 9.7 G/dL Invalid Interpretation Code 12.0 - 16.0 G/dL AO Workflow SS Lymphocyte, Absolute 1.5 103/mcL Invalid Interpretation Code 0.8 - 3.9 10^3/mcL AO Workflow SS Lymphocytes/100 WBC (Bld) 15.5 % Invalid Interpretation Code 10.0 - 50.0 % AO Workflow SS MCH (RBC) [Entitic mass] 28.3 pg Invalid Interpretation Code 27.0 - 31.2 pg AO Workflow SS MCHC 33.7 G/dL Invalid Interpretation Code 33.0 - 37.0 G/dL AO Workflow SS MCV (RBC) [Entitic vol] 84.0 fL Invalid Interpretation Code 80.0 - 94.0 fL AO Workflow SS Monocyte, Absolute 0.6 103/mcL Invalid Interpretation Code 0.2 - 1.0 10^3/mcL AO Workflow SS Monocytes/100 WBC (Bld) 6.5 % Invalid Interpretation Code 1.7 - 13.0 % AO Workflow SS Neutrophil, Absolute 7.3 103/mcL Invalid Interpretation Code 2.9 - 6.2 10^3/mcL AO Workflow SS Neutrophils/100 WBC (Bld) 76.8 % Invalid Interpretation Code 37.0 - 80.0 % AO Workflow SS Platelet mean volume (Bld) [Entitic vol] 6.9 fL Invalid Interpretation Code 7.4 - 10.4 fL AO Workflow SS Platelets (Bld) [#/Vol] 282 103/mcL Invalid Interpretation Code 130 - 400 10^3/mcL AO Workflow SS RBC (Bld) [#/Vol] 3.44 106/mcL Invalid Interpretation Code 4.20 - 5.40 10^6/mcL AO Workflow SS WBC (Bld) [#/Vol] 9.5 103/mcL Invalid Interpretation Code 4.6 - 10.8 10^3/mcL AO Workflow SS LIPon 09-30-2022 Lipase Level 40 U/L Normal 16-77 [facility] ([place]) Comment on above: Performed By: #### L IP #### [place] [address] [address] UAon 09-30-2022 Color (U) Yellow Normal [facility] ([place]) Comment on above: Performed By: #### U AMIMLII MEREDITH #### [place] [address] [address] Glucose (U) [Mass/Vol] Negative Normal Negative [facility] ([place]) Comment on above: Performed By: #### U AMIMILI MEREDITH #### [place] [address] [address] Ketones Ql (U) Negative Normal Negative [facility] ([place]) Comment on above: Performed By: #### U AMICAMILI Dorsey #### [place] [address] [address] UA Appear Clear Normal Clear [facility] ([place]) Comment on above: Performed By: #### U AMICAO, UA #### [place] [address] [address] UA Blood Trace Abnormal Negative [facility] ([place]) Comment on above: Performed By: #### U AMICAO, UA #### [place] [address] [address] UA Leuk Est Negative Normal Negative [facility] ([place]) Comment on above: Performed By: #### U AMICAO, UA #### [place] [address] [address] UA Nitrite Negative Normal Negative [facility] ([place]) Comment on above: Performed By: #### U AMICAO, UA #### [place] [address] UA pH 5.5 Normal 5.0 - 8.0 [facility] ([place]) Comment on above: Performed By: #### U AMICAO, UA #### [place] [address] UA Protein Negative Normal Negative [facility] ([place]) Comment on above: Performed By: #### U AMICAO, UA #### [place] [address] UA Spec Grav >=1.030 Abnormal 1.015-1.025 [facility] ([place]) Comment on above: Performed By: #### U AMICAO, UA #### [place] [address] UA Specimen Type Clean Catch Normal [facility] ([place]) Comment on above: Performed By: #### U AMICAO, UA #### [place] [address] UA Urobilinogen 0.2 E.U./dL Normal 0.2-1.0 [facility] ([place]) Comment on above: Performed By: #### U AMICAO, UA #### [place] [address] Urobilinogen (U) [Mass/Vol] Negative Normal Negative [facility] ([place]) Comment on above: Performed By: #### U MILI VERDUGO #### [place] [place] [place], [place] [address] Basic metabolic 1998 panelon 09-24-2022 Anion gap [Moles/Vol] 5 mmol/L 3 - 13 mmol/L [facility] Calcium [Mass/Vol] 8.3 mg/dL Low 8.4 - 10. 4 mg/dL [facility] Chloride [Moles/Vol] 111 mmol/L High 98 - 10 7 mmol/L [facility] CO2 [Moles/Vol] 19 mmol/L Low 22 - 30 mmol/L [facility] Creatinine [Mass/Vol] 0.47 mg/dL Low 0.52 - 1.04 mg/dL [facility] GFR/1.73 sq M.predicted MDRD (S/P/Bld) [Vol rate/Area] - PINF [facility] Comment on above: Calculation based on the Chronic Kidney Disease Epidemiology Collaboration (CKD-EPI) equation refit without adjustment for race Glucose [Mass/Vol] 89 mg/dL 70 - 100 mg/dL [facility] Interpretation and review of laboratory results Abnormal [facility] Potassium [Moles/Vol] 3.5 mmol/L 3.5 - 5.1 mmol/L [facility] Sodium [Moles/Vol] 134 mmol/L Low 135 - 145 mmol/L [facility] Urea nitrogen [Mass/Vol] 5 mg/dL Low 7 - 17 mg/dL [facility] Blood type and Crossmatch narda russo (Bld)on 09-24-2022 ABO group Nom (Bld) A [facility] Blood group antibody screen GEL Ql Negative [facility] D Ag Ql (RBC) [facility] CBC panel Auto (Bld)on 09-24 Erythrocyte distribution width (RBC) [Ratio] 13.3 % 11.5 - 14.5 % [facility] Hematocrit (Bld) [Volume fraction] 29.5 % Low 35.0 - 47.0 % [facility] Hemoglobin (Bld) [Mass/Vol] 9.8 g/dL Low 11.7 - 16.0 g/dL [facility] Interpretation and review of laboratory results Abnormal [facility] MCH (RBC) [Entitic mass] 28.2 pg 26.0 - 34.0 pg [facility] MCHC (RBC) [Mass/Vol] 33.3 % 32.0 - 36.0 % [facility] MCV (RBC) [Entitic vol] 84.7 fL 80.0 - 98.0 fL [facility] Platelet mean volume (Bld) [Entitic vol] 7.0 fL Low 7.4 - 12.4 fL [facility] Platelets (Bld) [#/Vol] 297 10*3/uL 140 - 440 10*3/uL [facility] RBC (Bld) [#/Vol] 3.48 10*6/uL Low 3.8 - 5.20 10*6/uL [facility] WBC (Bld) [#/Vol] 8.1 10*3/uL 3.6 - 10.7 10*3/uL [facility] ED Nursing Noteon 09-24-2022 ED Nursing Note Pt is 19 weeks preg and states starting last night she started having vaginal bleeding/cramping. Normal [facility] ED Provider Noteon ED Provider Note EMERGENCY DEPARTMENT ENCOUNTER Pt Name: Selene Larkin Birthdate 1995 Date of evaluation: 09/24/2022 ED Provider: Mahad Smith DO CHIEF COMPLAINT Chief Complaint Patient presents with Problem HISTORY OF PRESENT ILLNESS (Location/Symptom, Timing/Onset, Context/Setting, Quality, Duration, Modifying Factors, Severity) Note limiting factors. I wore appropriate PPE for the entirety of this encounter. HPI Selene Larkin is a 27 y.o. female who presents to the emergency department with vaginal bleeding and lower abdominal cramping. The patient reports that she is currently 19 weeks . She reports that she was dealing with a hematoma associated with her at outside hospital. She reports that she recently moved to this area and has not yet established care with HOMOEOPATH. She reports some bright red spotting last night, followed by some bright red spotting this morning which prompted presentation. Denies other review of systems. Nursing Notes were reviewed. Limitations to history: Outside historians: REVIEW OF SYSTEMS Review of Systems Gastrointestinal: Positive for abdominal pain. Genitourinary: Positive for vaginal bleeding. PAST MEDICAL HISTORY Past Medical History: Diagnosis Date Anemia Asthma Endometriosis Hypoglycemia Interstitial cystitis SURGICAL HISTORY Past Surgical History: Procedure Laterality Date SECTION (HISTORICAL) CHOLECYSTECTOMY N/A LAPAROSCOPY DIAGNOSTIC / BIOPSY / ASPIRATION / LYSIS CURRENT MEDICATIONS There are no discharge medications for this patient. ALLERGIES Penicillins FAMILY HISTORY No family history on file. SOCIAL HISTORY Social History Socioeconomic History Marital status: Tobacco Use Smoking status: Never Smokeless tobacco: Never Substance and Sexual Activity Alcohol use: No Drug use: No SCREENINGS PHYSICAL EXAM ED Triage Vitals [09/24/22 1254] Temp Heart Rate Resp BP 36.7 ?C (98.1 ?F) 74 18 114/69 SpO2 Temp Source Heart Rate Source Patient Position 100 % Temporal Monitor Sitting BP Location FiO2 (%) Right arm -- Physical Exam Constitutional: General: She is not in acute distress. HENT: Head: Normocephalic. Eyes: Conjunctiva/sclera: Conjunctivae normal. Pulmonary: Effort: Pulmonary effort is normal. Abdominal: Comments: Gravid abdomen Musculoskeletal: General: No deformity. Skin: General: Skin is warm and dry. Psychiatric: Mood and Affect: Mood normal. DIAGNOSTIC RESULTS RADIOLOGY (Per Emergency Physician): Interpretation per the Radiologist below, if available at the time of this note: US OB limited 1+ fetuses Final Result Single live intrauterine gestation with estimated age of 21 weeks and 0 days based on femur length. The cervix is closed and measures 4 cm in length. HOMOEOPATH follow-up is recommended. Report Dictated on Electronically Signed By: Hal Ko Electronically Signed Date/Time: 09/24/2022 2:50 PM EDT US OB transvaginal Final Result Single live intrauterine gestation with estimated age of 21 weeks and 0 days based on femur length. The cervix is closed and measures 4 cm in length. HOMOEOPATH follow-up is recommended. Report Dictated on Electronically Signed By: Hal Ko Electronically Signed Date/Time: 09/24/2022 2:50 PM EDT LABS: Labs Reviewed BASIC METABOLIC PANEL - Abnormal Result Value SODIUM 134 (*) POTASSIUM 3.5 CHLORIDE 111 (*) CARBON DIOXIDE 19 (*) UREA NITROGEN 5 (*) CREATININE 0.47 (*) GLUCOSE 89 CALCIUM 8.3 (*) ANION GAP 5 eGFR >90.0 CBC (HEMOGRAM) - Abnormal Auto WBC 8.1 RBC 3.48 (*) Hemoglobin 9.8 (*) Hematocrit 29.5 (*) MCV 84.7 MCH 28.2 MCHC 33.3 RDW 13.3 Platelets 297 MPV 7.0 (*) COMPLETE URINALYSIS - Abnormal Color, Urine Light Yellow Clarity, Urine Clear pH, Urine 5.5 Leukocytes, Urine Negative Nitrite, Urine Negative Protein, Urine Negative Glucose, Urine Normal Bilirubin, Urine Negative Ketones, Urine Trace (*) Urobilinogen, Urine Normal Blood, Urine Negative SPECIFIC GRAVITY OF URINE (NUMERIC) 1.010 BLOOD TYPE AND SCREEN GEL ABO Grouping A Antibody Screen NEG Rh Type POS HCG QUANTITATIVE BLOOD HCG QUANTITATIVE 24,018 Narrative: Values in should double every 2 to 3 days for the first 6 weeks. Elevated concentrations of human chorionic gonadotropin (hCG) measured in the first trimester of are observed in normal , but may serve as an indication of chorionic carcinoma, hydatiform mole, or multiple . Decreasing hCG concentrations indicate threatened or missed , recent termination of , ectopic , gestosis or intrauterine . Galina- and postmenopausal females may have detectable hCG concentrations (< or = to 14 mIU/mL) due to pituitary production of hCG. S (more content not included)... Normal [employer] [facility] No Panel Informationon 09-24 Single live intrauterine gestation with estimated age of 21 weeks and 0 days based on femur length. The cervix is closed and measures 4 cm in length. HOMOEOPATH follow-up is recommended. Report Dictated on Electronically Signed By: Hal Ko Electronically Signed Date/Time: 09/24/2022 2:50 PM [facility] RADIOLOGY SYSTEM No Panel InformationOrdered By: Hal Ko on 09-24-2022 [employer] Work Phone: Quantitative hCGon 3 [place] [address] m[IU]/mL Female s < 5 mIU/mL [employer] Values in should double every 2 to 3 days for the first 6 weeks. Elevated concentrations of human chorionic gonadotropin (hCG) measured in the first trimester of are observed in normal , but may serve as an indication of chorionic carcinoma, hydatiform mole, or multiple . Decreasing hCG concentrations indicate threatened or missed , recent termination of , ectopic , gestosis or intrauterine . Gal[place]- and postmenopausal females may have detectable hCG concentrations (< or = to 14 mIU/mL) due to pituitary production of hCG. Serum follicle-stimulating hormone measurement may aid in ruling-out in this population. Cutoffs of greater than 20 to 45 mIU/mL have been suggested and are method dependent. False-elevations (called phantom human chorionic gonadotropin: hCG) may occur with patients who have human antianimal or heterophilic antibodies. Some specimens may not dilute linearly due to abnormal forms of hCG. Elevated hCG concentrations not associated with are found in patients with other diseases such as tumors of the germ cells, ovaries, bladder, pancreas, stomach, lungs, and liver. This test is not intended to detect or monitor tumors or gestational trophoblastic disease. [facility] OB LIMITED 1+ FETUSESon 0 09-24-2022 US OB LIMITED 1+ FETUSES [facility] 1995 [id number] Exam Date/Time: 09/24/2022 14:09 Procedure: US OB LIMITED 1+ FETUSES Ordering Provider: SMITH JOSEPH Reason For Exam: Abnormal uterine bleeding (AUB), EXAM TYPE: US OB TRANSVAGINAL, US OB LIMITED 1+ FETUSES EXAM DATE AND TIME: 09/24/2022 2:09 PM EDT INDICATION: 27 years Female with vaginal bleeding COMPARISON: 10/13/2020 pelvic ultrasound TECHNIQUE: Ultrasonographic evaluation of the pelvis was performed including color flow and spectral Doppler imaging. FINDINGS: UTERUS: Intrauterine gestation(s): Single Estimated gestational age of 21 weeks and 0 days based on femur length. heart motion: 164 beats per minute. Subchorionic hemorrhage: None. Cervix: 4 cm in length and closed. ADNEXA / OVARIES: Right ovary: Nonvisualized. Left ovary: Nonvisualized. FREE FLUID: None. IMPRESSION: Single live intrauterine gestation with estimated age of 21 weeks and 0 days based on femur length. The cervix is closed and measures 4 cm in length. HOMOEOPATH follow-up is recommended. Report Dictated on Electronically Signed By: Hal Ko Electronically Signed Date/Time: 09/24/2022 2:50 PM EDT Normal [facility] OB TRANSVAGINALon 023 US OB TRANSVAGINAL Patient Name: SELENE LARKIN : 1995 Exam Date/Time: 09/24/2022 14:09 Procedure: US OB TRANSVAGINAL Ordering Provider: SMITH JOSEPH Reason For Exam: VAGINAL BLEED, AFTER 1ST TRIMESTER, NO OTHER SIGNS/SYMP EXAM TYPE: US OB TRANSVAGINAL, US OB LIMITED 1+ FETUSES EXAM DATE AND TIME: 09/24/2022 2:09 PM EDT INDICATION: 27 years Female with vaginal bleeding COMPARISON: 10/13/2020 pelvic ultrasound TECHNIQUE: Ultrasonographic evaluation of the pelvis was performed including color flow and spectral Doppler imaging. FINDINGS: UTERUS: Intrauterine gestation(s): Single Estimated gestational age of 21 weeks and 0 days based on femur length. heart motion: 164 beats per minute. Subchorionic hemorrhage: None. Cervix: 4 cm in length and closed. ADNEXA / OVARIES: Right ovary: Nonvisualized. Left ovary: Nonvisualized. FREE FLUID: None. IMPRESSION: Single live intrauterine gestation with estimated age of 21 weeks and 0 days based on femur length. The cervix is closed and measures 4 cm in length. HOMOEOPATH follow-up is recommended. Report Dictated on Electronically Signed By: Hal Ko Electronically Signed Date/Time: 09/24/2022 2:50 PM EDT [facility] US Pelvis transvaginalon Patient Name: SELENE LARKIN : 1995 Exam Date/Time: 09/24/2022 14:09 Procedure: US OB TRANSVAGINAL Ordering Provider: SMITH JOSEPH Reason For Exam: VAGINAL BLEED, AFTER 1ST TRIMESTER, NO OTHER SIGNS/SYMP EXAM TYPE: US OB TRANSVAGINAL, US OB LIMITED 1+ FETUSES EXAM DATE AND TIME: 09/24/2022 2:09 PM EDT INDICATION: 27 years Female with vaginal bleeding COMPARISON: 10/13/2020 pelvic ultrasound TECHNIQUE: Ultrasonographic evaluation of the pelvis was performed including color flow and spectral Doppler imaging. FINDINGS: UTERUS: Intrauterine gestation(s): Single Estimated gestational age of 21 weeks and 0 days based on femur length. heart motion: 164 beats per minute. Subchorionic hemorrhage: None. Cervix: 4 cm in length and closed. ADNEXA / OVARIES: Right ovary: Nonvisualized. Left ovary: Nonvisualized. FREE FLUID: None. [facility] RADIOLOGY SYSTEM Hal Ko MD - 09/24/2022 Patient Name: SELENE LARKIN : 1995 Exam Date/Time: 09/24/2022 14:09 Procedure: US OB TRANSVAGINAL Ordering Provider: SMITH JOSEPH Reason For Exam: VAGINAL BLEED, AFTER 1ST TRIMESTER, NO OTHER SIGNS/SYMP EXAM TYPE: US OB TRANSVAGINAL, US OB LIMITED 1+ FETUSES EXAM DATE AND TIME: 09/24/2022 2:09 PM EDT INDICATION: 27 years Female with vaginal bleeding COMPARISON: 10/13/2020 pelvic ultrasound TECHNIQUE: Ultrasonographic evaluation of the pelvis was performed including color flow and spectral Doppler imaging. FINDINGS: UTERUS: Intrauterine gestation(s): Single Estimated gestational age of 21 weeks and 0 days based on femur length. heart motion: 164 beats per minute. Subchorionic hemorrhage: None. Cervix: 4 cm in length and closed. ADNEXA / OVARIES: Right ovary: Nonvisualized. Left ovary: Nonvisualized. FREE FLUID: None. IMPRESSION: Single live intrauterine gestation with estimated age of 21 weeks and 0 days based on femur length. The cervix is closed and measures 4 cm in length. HOMOEOPATH follow-up is recommended. Report Dictated on Electronically Signed By: Hal Ko Electronically Signed Date/Time: 09/24/2022 2:50 PM EDT [facility] Radiology Study observation (narrative) [facility] US for pregnancyon Patient Name: SELENE LARKIN : 1995 Exam Date/Time: 09/24/2022 14:09 Procedure: US OB LIMITED 1+ FETUSES Ordering Provider: SMITH JOSEPH Reason For Exam: Abnormal uterine bleeding (AUB), EXAM TYPE: US OB TRANSVAGINAL, US OB LIMITED 1+ FETUSES EXAM DATE AND TIME: 09/24/2022 2:09 PM EDT INDICATION: 27 years Female with vaginal bleeding COMPARISON: 10/13/2020 pelvic ultrasound TECHNIQUE: Ultrasonographic evaluation of the pelvis was performed including color flow and spectral Doppler imaging. FINDINGS: UTERUS: Intrauterine gestation(s): Single Estimated gestational age of 21 weeks and 0 days based on femur length. heart motion: 164 beats per minute. Subchorionic hemorrhage: None. Cervix: 4 cm in length and closed. ADNEXA / OVARIES: Right ovary: Nonvisualized. Left ovary: Nonvisualized. FREE FLUID: None. [facility] Hal Ko MD - 09/24/2022 [facility] Name[facility]ARKIN [facility] 1995 [id number] Exam Date/Time: 09/24/2022 14:09 Procedure: US OB LIMITED 1+ FETUSES Ordering Provider: SMITH JOSEPH Reason For Exam: Abnormal uterine bleeding (AUB), EXAM TYPE: US OB TRANSVAGINAL, US OB LIMITED 1+ FETUSES EXAM DATE AND TIME: 09/24/2022 2:09 PM EDT INDICATION: 27 years Female with vaginal bleeding COMPARISON: 10/13/2020 pelvic ultrasound TECHNIQUE: Ultrasonographic evaluation of the pelvis was performed including color flow and spectral Doppler imaging. FINDINGS: UTERUS: Intrauterine gestation(s): Single Estimated gestational age of 21 weeks and 0 days based on femur length. heart motion: 164 beats per minute. Subchorionic hemorrhage: None. Cervix: 4 cm in length and closed. ADNEXA / OVARIES: Right ovary: Nonvisualized. Left ovary: Nonvisualized. FREE FLUID: None. IMPRESSION: Single live intrauterine gestation with estimated age of 21 weeks and 0 days based on femur length. The cervix is closed and measures 4 cm in length. HOMOEOPATH follow-up is recommended. Report Dictated on Electronically Signed By: Hal Ko Electronically Signed Date/Time: 09/24/2022 2:50 PM EDT [facility] Radiology Study observation (narrative) [facility] Urinalysis complete panel (U )Ordered By: Lyndsey Carvajal on 09-24-2022 Bilirubin Ql (U) Negative Negative mg/dL [facility] Clarity (U) Clear Clear [facility] Color (U) Light Yellow Lt. Yellow [facility] Glucose Ql (U) Normal Normal (<70) mg/dL [facility] Hemoglobin Ql (U) Negative Negative mg/dL [facility] Interpretation and review of laboratory results Abnormal [facility] Ketones (U) [Mass/Vol] Trace Abnormal Negat latricia mg/dL [facility] Leukocyte esterase Test strip Ql (U) Negative Negative Marleni/uL [facility] Nitrite Ql (U) Negative Negative [facility] th pH (U) 5.5 [pH] 5.0 - 8.0 pH [facility] Protein (U) [Mass/Vol] Negative Negat latricia mg/dL [facility] Specific gravity (U) [Rel density] 1.010 1.005 - 1.030 [facility] Urobilinogen (U) [Mass/Vol] Normal Normal (0-1) mg/dL [facility] Basic Metabolic Panelon 04-2 Anion gap [Moles/Vol] 10 mmol/L Normal 7-16 [facility] Calcium [Mass/Vol] 8.7 mg/dL Normal 8.6-10.2 [facility] Chloride [Moles/Vol] 105 mmol/L Normal 98-107 [facility] CO2 [Moles/Vol] 21 mmol/L Low 22-29 [facility] Creatinine [Mass/Vol] 0.5 mg/dL Normal 0.5-1.0 [facility] GFR Calculated >60 Normal >=60 [facility] Comment on above: Result Comment: Raghavendra izaguirrec calculator link https://www.kidney.org/professionals/kdoqi/gfr_calculatorped Effective Feb 18, 2022 These results are not intended for use in patients <18 years of age. eGFR results are calculated without a race factor using the 2020 CKD-EPI equation. Careful clinical correlation is recommended, particularly when comparing to results calculated using previous equations. The CKD-EPI equation is less accurate in patients with extremes of muscle mass, extra-renal metabolism of creatinine, excessive creatinine ingestion, or following therapy that affects renal tubular secretion. Glucose [Mass/Vol] 94 mg/dL Normal 74-99 [facility] Potassium [Moles/Vol] 3.7 mmol/L Normal 3.5-5.0 [facility] Sodium [Moles/Vol] 136 mmol/L Normal 132-146 [facility] Urea nitrogen [Mass/Vol] 7 mg/dL Normal 6-20 [facility] CBC With Platelet and Differ entialon 09-08-2022 Abs Imm Granulocytes 0.23 E9/L Normal [facility] Absolute Basophils 0.04 E9/L Normal 0.00-0.20 [facility] Absolute Eosinophils 0.05 E9/L Normal 0.05-0.50 [facility] Absolute Lymphocytes 1.67 E9/L Normal 1.50-4.00 [facility] Absolute Monocytes 0.48 E9/L Normal 0.10-0.95 [facility] Absolute Neutrophils 5.37 E9/L Normal 1.80-7.30 [facility] Basophils/100 WBC (Bld) 0.5 % Normal 0.0-2.0 [facility] Eosinophils/100 WBC (Bld) 0.6 % Normal 0.0-6.0 [facility] Hematocrit (Bld) [Volume fraction] 33.1 % Low 34.0-48.0 [facility] Hemoglobin (Bld) [Mass/Vol] 10.6 g/dL Low 11.5-15.5 [facility] Imm Granulocytes 2.9 % Normal 0.0-5.0 [facility] Lymphocytes/100 WBC (Bld) 21.3 % Normal 20.0-42.0 [facility] MCH (RBC) [Entitic mass] 28.3 pg Normal 26.0-35.0 [facility] MCHC 32.0 % Normal 32.0-34.5 [facility] MCV (RBC) [Entitic vol] 88.3 fL Normal 80.0-99.9 [facility] Monocytes/100 WBC (Bld) 6.1 % Normal 2.0-12.0 [facility] Neutrophils/100 WBC (Bld) 68.6 % Normal 43.0-80.0 [facility] Platelet Count 287 E9/L Normal 130-450 [facility] Platelet mean volume (Bld) [Entitic vol] 8.7 fL Normal 7.0-12.0 [facility] RBC 3.75 E12/L Normal 3.50-5.50 [facility] RDW 12.5 fL Normal 11.5-15.0 [facility] WBC 7.8 E9/L Normal 4.5-11.5 [facility] Culture, Urineon 09-08-2022 Culture, Urine Culture, Urine-: <10,000 CFU/mL Mixed gram positive organisms Gram negative rods Normal [facility] Lactic Acidon 09-08-2022 Lactate [Moles/Vol] 0.6 mmol/L Normal 0.5-2.2 [facility] Lipaseon 09-08-2022 Lipase [Catalytic activity/Vol] 51 U/L Normal 13-60 [facility] Liver Panelon 09-08-2022 Albumin [Mass/Vol] 3.5 g/dL Normal 3.5-5.2 [facility] ALP [Catalytic activity/Vol] 46 U/L Normal 35-104 [facility] ALT [Catalytic activity/Vol] U/L Normal 0-32 [facility] AST [Catalytic activity/Vol] 10 U/L Normal 0-31 [facility] Bilirubin [Mass/Vol] 0.3 mg/dL Normal 0.0-1.2 [facility] Bilirubin Indirect see below Normal 0.0-1.0 [facility] Comment on above: Result Comment: Doris rect Bilirubin cannot be calculated since Total Bilirubin and/or Direct Bilirubin is below measurable range. Bilirubin.indirect [Mass/Vol] mg/dL Normal 0.0-0.3 [facility] Protein [Mass/Vol] 6.2 g/dL Low 6.4-8.3 [facility] US OB 1 OR MORE FETUS LIMITE Don 09-08-2022 US OB 1 OR MORE FETUS LIMITED EXAMINATION: TRIMESTER OBSTETRIC ULTRASOUND 09/08/2022 TECHNIQUE: Superficial sonographic evaluation of the gravid uterus performed using a combination of grayscale, color Doppler, and M-mode Doppler technique. COMPARISON: Ob ultrasound from August 12, 2022. HISTORY: ORDERING SYSTEM PROVIDED HISTORY: pain cramping decreased movements 17+ weeks TECHNOLOGIST PROVIDED HISTORY: Reason for exam:->pain cramping decreased movements 17+ weeks What reading provider will be dictating this exam?->CRC FINDINGS: A single live intrauterine is present. heart rate measures 155 beats per minute. There is normal body and limb movement. The fetus is in cephalic position. The placenta is located right posterolateral with no evidence of previa.. The amniotic fluid volume is visually normal and the amniotic fluid index measures 9.4 cm. The cervix is closed measuring 3.8 cm transabdominally. Limited anatomic evaluation of the fetus. There appears to be a normal four-chamber heart, stomach, kidneys, cord insertion, three-vessel cord, and bladder. 4 extremities are present. BPD measures 4.03 cm. 18 weeks and 2 days. Head circumference measures 14.77 cm. 17 weeks and 6 days. Abdominal circumference measures 11.78 cm. 17 weeks and 4 days. Femur length measures 2.55 cm. 17 weeks and 5 days. Estimated weight is 204.4 grams which correlates to 19th percentile based upon last menstrual period. Estimated gestational age by current ultrasound is 17 weeks and 6 days Estimated date of delivery based on current ultrasound: February 10, 2023 Clinical age provided: 18 weeks and 1 day Estimated date of delivery based on the clinical age provided: February 08, 2023 IMPRESSION: 1. Single live intrauterine with gestational age of 17 weeks and 6 days by current sonographic biometry. Clinical age provided is concordant at 18 weeks and 1 day. heart rate was 155 beats per minute. (Estimated date of delivery based on the clinical age provided is February 08, 2023.) 2. Currently cephalic presentation with no evidence of previa. Visually normal amniotic fluid. Cervix is closed. Estimated weight was 204 g. RECOMMENDATIONS: Recommend scheduling the patient for a complete anatomic survey at approximately 20 weeks gestation. Interpreted by: Vj Mcwilliams DO Signed by: Vj Mcwilliams DO 09/08/22 Final result Normal [facility] Comment on above: Order Comment: Reaso n for exam:->pain cramping decreased movements 17+ weeksWhat reading provider will be dictating this exam?->CRC Urinalysis, reflex to micros copicon 09-08-2022 Bilirubin Ql (U) Negative Normal Negative [facility] Clarity (U) Clear Normal Clear [facility] Color (U) Yellow Normal Straw/Yellow [facility] Glucose Ql (U) Negative Normal Negative [facility] Hemoglobin Ql (U) Negative Normal Negative [facility] Ketones Ql (U) Negative Normal Negative [facility] Leukocyte esterase Test strip Ql (U) Negative Normal Negative [facility] Nitrite Ql (U) Negative Normal Negative [facility] pH (U) 7.0 [pH] Normal 5.0-9.0 [facility] Protein Ql (U) Negative Normal Negative [facility] Specific gravity (U) [Rel density] 1.020 Normal 1.005-1.030 [facility] Urobilinogen Qn (U) 0.2 {Dominique'U}/dL Normal < 2.0 [facility] US PREG TRANSABD >14 WEEKS L TDon 08-17-2022 US PREG TRANSABD >14 WEEKS LTD * * *Final Report* * * DATE OF EXAM: Aug 17 2022 4:10PM RHU 1036 - US PREG TRANSABD >14 WEEKS LTD / PROCEDURE REASON: growth * * * * Physician Interpretation * * * * TRANSABDOMINAL ULTRASOUND: Clinical Statement: Growth. Comparison: None. FINDINGS: There is a single live intrauterine with the fetus in active varying position. The heart rate is 171 bpm. The placenta is posterior. The cervix is closed with a cervical length of 4.6 cm. The composite gestational age from current exam measurements is 14.5 weeks with a projected delivery of 02/12/2023. IMPRESSION: Single live active intrauterine with a gestational age of 14.5 weeks based on the current exam. The projected delivery date is 02/12/2023. Phone Representative: KATHYA Transcribe Date/Time: Aug 18 2022 9:39A Dictated by : MEMO ROMAN MD This examination was interpreted and the report reviewed and electronically signed by: MEMO ROMAN MD on Aug 18 2022 9:40AM EST [id number] Normal [facility] CBC With Platelet and Differ entialon 08-12-2022 Abs Imm Granulocytes 0.11 E9/L Normal [facility] Absolute Basophils 0.04 E9/L Normal 0.00-0.20 [facility] Absolute Eosinophils 0.07 E9/L Normal 0.05-0.50 [facility] Absolute Lymphocytes 2.41 E9/L Normal 1.50-4.00 [facility] Absolute Monocytes 0.50 E9/L Normal 0.10-0.95 [facility] Absolute Neutrophils 6.31 E9/L Normal 1.80-7.30 [facility] Basophils/100 WBC (Bld) 0.4 % Normal 0.0-2.0 [facility] Eosinophils/100 WBC (Bld) 0.7 % Normal 0.0-6.0 [facility] Hematocrit (Bld) [Volume fraction] 33.6 % Low 34.0-48.0 [facility] Hemoglobin (Bld) [Mass/Vol] 11.0 g/dL Low 11.5-15.5 [facility] Imm Granulocytes 1.2 % Normal 0.0-5.0 [facility] Lymphocytes/100 WBC (Bld) 25.5 % Normal 20.0-42.0 [facility] MCH (RBC) [Entitic mass] 28.1 pg Normal 26.0-35.0 [facility] MCHC 32.7 % Normal 32.0-34.5 [facility] MCV (RBC) [Entitic vol] 85.7 fL Normal 80.0-99.9 [facility] Monocytes/100 WBC (Bld) 5.3 % Normal 2.0-12.0 [facility] Neutrophils/100 WBC (Bld) 66.9 % Normal 43.0-80.0 [facility] Platelet Count 334 E9/L Normal 130-450 [facility] Platelet mean volume (Bld) [Entitic vol] 8.7 fL Normal 7.0-12.0 [facility] RBC 3.92 E12/L Normal 3.50-5.50 [facility] RDW 12.3 fL Normal 11.5-15.0 [facility] WBC 9.4 E9/L Normal 4.5-11.5 [facility] CBC with Auto Differentialon 08-12-2022 Basophils (Bld) [#/Vol] 0.04 10*3/uL [facility] Basophils/100 WBC (Bld) 0.4 % 0.0 - 2.0 % [facility] Eosinophils (Bld) [#/Vol] 0.07 10*3/uL [facility] Eosinophils/100 WBC (Bld) 0.7 % 0.0 - 6.0 % [facility] Erythrocyte distribution width (RBC) [Ratio] 12.3 fL 11.5 - 15.0 fL [facility] Hematocrit (Bld) [Volume fraction] 33.6 % Low 34.0 - 48.0 % [facility] Hemoglobin (Bld) [Mass/Vol] 11.0 g/dL Low 11.5 - 15.5 g/dL [facility] Immature granulocytes (Bld) [#/Vol] 0.11 10*3/uL E9/L [facility] Immature granulocytes/100 WBC (Bld) 1.2 % 0.0 - 5.0 % [facility] Interpretation and review of laboratory results Abnormal [facility] Lymphocytes (Bld) [#/Vol] 2.41 10*3/uL [facility] Lymphocytes/100 WBC (Bld) 25.5 % 20.0 - 42.0 % [facility] MCH (RBC) [Entitic mass] 28.1 pg 26.0 - 35.0 pg [facility] MCHC (RBC) [Mass/Vol] 32.7 % 32.0 - 34.5 % [facility] MCV (RBC) [Entitic vol] 85.7 fL 80.0 - 99.9 fL [facility] Monocytes (Bld) [#/Vol] 0.50 10*3/uL [facility] Monocytes/100 WBC (Bld) 5.3 % 2.0 - 12.0 % [facility] Neutrophils (Bld) [#/Vol] 6.31 10*3/uL [facility] Platelet mean volume (Bld) [Entitic vol] 8.7 fL 7.0 - 12.0 fL [facility] Platelets (Bld) [#/Vol] 334 10*3/uL [facility] RBC (Bld) [#/Vol] 3.92 10*6/uL [facility] Segmented neutrophils/100 WBC (Bld) 66.9 % 43.0 - 80.0 % [facility] WBC (Bld) [#/Vol] 9.4 10*3/uL [facility] Comprehensive Metabolic Pane l reflex Mgon 08-12-2022 Albumin [Mass/Vol] 3.8 g/dL Normal 3.5-5.2 [facility] ALP [Catalytic activity/Vol] 50 U/L Normal 35-104 [facility] ALT [Catalytic activity/Vol] 5 U/L Normal 0-32 [facility] Anion gap [Moles/Vol] 11 mmol/L Normal 7-16 [facility] AST [Catalytic activity/Vol] 11 U/L Normal 0-31 [facility] Bilirubin [Mass/Vol] 0.2 mg/dL Normal 0.0-1.2 [facility] Calcium [Mass/Vol] 9.0 mg/dL Normal 8.6-10.2 [facility] Chloride [Moles/Vol] 104 mmol/L Normal 98-107 [facility] CO2 [Moles/Vol] 21 mmol/L Low 22-29 [facility] Creatinine [Mass/Vol] 0.5 mg/dL Normal 0.5-1.0 [facility] GFR Calculated >60 Normal >=60 [facility] Comment on above: Result Comment: Raghavendra atric calculator link [email or web address]://www.kidney.org/professionals/kdoqi/gfr_calculatorped Effective Feb 18, 2022 These results are not intended for use in patients <18 years of age. eGFR results are calculated without a race factor using the 2020 CKD-EPI equation. Careful clinical correlation is recommended, particularly when comparing to results calculated using previous equations. The CKD-EPI equation is less accurate in patients with extremes of muscle mass, extra-renal metabolism of creatinine, excessive creatinine ingestion, or following therapy that affects renal tubular secretion. Glucose [Mass/Vol] 86 mg/dL Normal 74-99 [facility] Magnesium [Moles/Vol] 3.3 mmol/L Low 3.5-5.0 [facility] Protein [Mass/Vol] 6.7 g/dL Normal 6.4-8.3 [facility] Sodium [Moles/Vol] 136 mmol/L Normal 132-146 [facility] Urea nitrogen [Mass/Vol] 6 mg/dL Normal 6-20 [facility] Comprehensive metabolic 2000 panelon 08-12-2022 Albumin [Mass/Vol] 3.8 g/dL 3.5 - 5.2 g/dL [facility] ALP [Catalytic activity/Vol] 50 U/L 35 - 104 U/L [facility] ALT [Catalytic activity/Vol] 5 U/L 0 - 32 U/L [facility] Anion gap [Moles/Vol] 11 mmol/L 7 - 16 mmol/L [facility] AST [Catalytic activity/Vol] 11 U/L 0 - 31 U/L [facility] Bilirubin [Mass/Vol] 0.2 mg/dL 0.0 - 1 .2 mg/dL [facility] Calcium [Mass/Vol] 9.0 mg/dL 8.6 - 10. 2 mg/dL [facility] Chloride [Moles/Vol] 104 mmol/L 98 - 10 7 mmol/L [facility] CO2 [Moles/Vol] 21 mmol/L Low 22 - 29 mmol/L [facility] Creatinine [Mass/Vol] 0.5 mg/dL 0.5 - 1.0 mg/dL [facility] GFR/1.73 sq M.predicted among non-blacks MDRD (S/P/Bld) [Vol rate/Area] mL/min/1.73 60 - PINF mL/min/1.73 [facility] Comment on above: Pediatric calculator link [email or web address]://www.kidney.org/professionals/kdoqi/gfr_calculatorped Effective Feb 18, 2022 These results are not intended for use in patients <18 years of age. eGFR results are calculated without a race factor using the 2020 CKD-EPI equation. Careful clinical correlation is recommended, particularly when comparing to results calculated using previous equations. The CKD-EPI equation is less accurate in patients with extremes of muscle mass, extra-renal metabolism of creatinine, excessive creatinine ingestion, or following therapy that affects renal tubular secretion. Glucose [Mass/Vol] 86 mg/dL 74 - 99 mg/dL [facility] Interpretation and review of laboratory results Abnormal [facility] Potassium [Moles/Vol] 3.3 mmol/L Low 3.5 - 5.0 mmol/L [facility] Protein [Mass/Vol] 6.7 g/dL 6.4 - 8.3 g/dL [facility] Sodium [Moles/Vol] 136 mmol/L 132 - 146 mmol/L [facility] Urea nitrogen [Mass/Vol] 6 mg/dL 6 - 20 mg/dL [facility] HCG Quanton 08-12-2022 HCG Quant 37072.0 mIU/mL High <10 [facility] Comment on above: Result Comment: The TOTAL HCG QUANT test is not intended for any use other than assessment of status. Magnesiumon 08-12-2022 Magnesium [Mass/Vol] 1.8 mg/dL Normal 1.6-2.6 [facility] Magnesium [Mass/Vol] 1.8 mg/dL 1.6 - 2 .6 mg/dL [facility] Magnesium [Mass/Vol]on 08-12 [facility] US OB 1 OR MORE FETUS LIMITE Don 08-12-2022 US OB 1 OR MORE FETUS LIMITED EXAMINATION: TRIMESTER OBSTETRIC ULTRASOUND 08/12/2022 TECHNIQUE: Transabdominal ultrasonography examination was performed. COMPARISON: None HISTORY: ORDERING SYSTEM PROVIDED HISTORY: 14 weeks, abdominal cramping TECHNOLOGIST PROVIDED HISTORY: Reason for exam:->14 weeks, abdominal cramping What reading provider will be dictating this exam?->CRC FINDINGS: The examination is very limited the and anatomy is not examined. A viable single intrauterine is identified with the fetus in variable position. The cervical length is 3.3 cm and is closed. The BPD is 2.7 cm corresponding to gestational age of 14 weeks and 5 days. The head circumference is 9.7 cm corresponding to 14 weeks and 3 days of gestation. The abdomen circumference is 7.3 cm corresponding to 13 weeks and 6 days. The femoral length is 1.3 cm corresponding to gestational age of 13 weeks and 5 days. The average gestational age is 14 weeks and 1 day and VÍCTOR is 02/09/2023. The heart rate is 148 beats per minute. Estimated weight is 84.54 g IMPRESSION: A limited examination. There is a single viable intrauterine gestation with a estimated gestational age of 14 weeks and 1 day with VÍCTOR of 02/09/2023. The heart rate is 148 beats per minute. No large uterine contractions were seen. Interpreted by: Vern Berg MD Signed by: Vern Berg MD 08/12/22 Final result Normal [facility] Comment on above: Order Comment: Reaso n for exam:->14 weeks, abdominal crampingWhat reading provider will be dictating this exam?->CRC A limited examinatio n. There is a single viable intrauterine gestation with a estimated gestational age of 14 weeks and 1 day with VÍCTOR of 02/09/2023. The heart rate is 148 beats per minute. No large uterine contractions were seen. [facility] EXAMINATION: TRIMESTER OBSTETRIC ULTRASOUND 08/12/2022 TECHNIQUE: Transabdominal ultrasonography examination was performed. COMPARISON: None HISTORY: ORDERING SYSTEM PROVIDED HISTORY: 14 weeks, abdominal cramping TECHNOLOGIST PROVIDED HISTORY: Reason for exam:->14 weeks, abdominal cramping What reading provider will be dictating this exam?->CRC FINDINGS: The examination is very limited the and anatomy is not examined. A viable single intrauterine is identified with the fetus in variable position. The cervical length is 3.3 cm and is closed. The BPD is 2.7 cm corresponding to gestational age of 14 weeks and 5 days. The head circumference is 9.7 cm corresponding to 14 weeks and 3 days of gestation. The abdomen circumference is 7.3 cm corresponding to 13 weeks and 6 days. The femoral length is 1.3 cm corresponding to gestational age of 13 weeks and 5 days. The average gestational age is 14 weeks and 1 day and VÍCTOR is 02/09/2023. The heart rate is 148 beats per minute. Estimated weight is 84.54 g [facility] Vern Berg MD - 08/12/2022 EXAMINATION: TRIMESTER OBSTETRIC ULTRASOUND 08/12/2022 TECHNIQUE: Transabdominal ultrasonography examination was performed. COMPARISON: None HISTORY: ORDERING SYSTEM PROVIDED HISTORY: 14 weeks, abdominal cramping TECHNOLOGIST PROVIDED HISTORY: Reason for exam:->14 weeks, abdominal cramping What reading provider will be dictating this exam?->CRC FINDINGS: The examination is very limited the and anatomy is not examined. A viable single intrauterine is identified with the fetus in variable position. The cervical length is 3.3 cm and is closed. The BPD is 2.7 cm corresponding to gestational age of 14 weeks and 5 days. The head circumference is 9.7 cm corresponding to 14 weeks and 3 days of gestation. The abdomen circumference is 7.3 cm corresponding to 13 weeks and 6 days. The femoral length is 1.3 cm corresponding to gestational age of 13 weeks and 5 days. The average gestational age is 14 weeks and 1 day and VÍCTOR is 02/09/2023. The heart rate is 148 beats per minute. Estimated weight is 84.54 g IMPRESSION: A limited examination. There is a single viable intrauterine gestation with a estimated gestational age of 14 weeks and 1 day with VÍCTRO of 02/09/2023. The heart rate is 148 beats per minute. No large uterine contractions were seen. [employer] Work Phone: Radiology Study observation (narrative) [employer] Work Phone: US OB 1 OR MORE FETUS LIMITE DOrdered By: Vern Berg on 08-12-2022 [employer] Work Phone: Urinalysison 08-12-2022 Bilirubin Ql (U) Negative Negative [place] [address] [employer] Clarity (U) Clear Clear [place] [facility] [facility] Color (U) Yellow Straw/Yellow [facility] Glucose Test strip (U) [Mass/Vol] Negative Negative mg/dL [place] [address] [facility] Hemoglobin Ql (U) Negative Negative [email or web address] Ketones (U) [Mass/Vol] Negative Negat latricia mg/dL [place] [address] [email or web address] Leukocyte esterase Test strip Ql (U) Negative Negative [place] [address] [facility] Nitrite Ql (U) Negative Negative [place] [facility] pH (U) 5.5 [pH] 5.0 - 9.0 [place] [address] [facility] Protein (U) [Mass/Vol] Negative Negat latricia mg/dL [place] [address] [facility] Specific gravity (U) [Rel density] 1.005 - 1.030 [place] [address] [email or web address] Urobilinogen Qn (U) 0.2 NINF [facility] S [facility] [employer] [email or web address] Urinalysis, reflex to micros copicon 08-12-2022 Bilirubin Ql (U) Negative Normal Negative [facility] Clarity (U) Clear Normal Clear [facility] Color (U) Yellow Normal Straw/Yellow [facility] Glucose Ql (U) Negative Normal Negative [facility] Hemoglobin Ql (U) Negative Normal Negative [facility] Ketones Ql (U) Negative Normal Negative [facility] Leukocyte esterase Test strip Ql (U) Negative Normal Negative [facility] Nitrite Ql (U) Negative Normal Negative [facility] pH (U) 5.5 [pH] Normal 5.0-9.0 [facility] Protein Ql (U) Negative Normal Negative [facility] Specific gravity (U) [Rel density] >=1.030 Normal 1.005-1.030 [facility] Urobilinogen Qn (U) 0.2 {Dominique'U}/dL Normal < 2.0 [facility] hCG, quantitative, on 08-12-2022 hCG Quant [id number] High [facility] Comment on above: The TOTAL HCG QUANT test is not intended for any use other than assessment of status. Interpretation and review of laboratory results Abnormal [facility] ABO and Rh group Nom (Bld)on 07-31-2022 [facility] ABO/RHon 07-31-2022 ABO and Rh group Nom (Bld) Blood group A Rh(D) positive [facility] ABORH Captureon 07-31-2022 ABO and Rh group Nom (Bld) Blood group A Rh(D) positive Normal [facility] CBC With Platelet and Differ entialon 07-31-2022 Abs Imm Granulocytes 0.06 E9/L Normal [facility] Absolute Basophils 0.04 E9/L Normal 0.00-0.20 [facility] Absolute Eosinophils 0.06 E9/L Normal 0.05-0.50 [facility] Absolute Lymphocytes 1.41 E9/L Low 1.50-4.00 [facility] Absolute Monocytes 0.42 E9/L Normal 0.10-0.95 [facility] Absolute Neutrophils 4.69 E9/L Normal 1.80-7.30 Bj [facility] Basophils/100 WBC (Bld) 0.6 % Normal 0.0-2.0 [facility] Eosinophils/100 WBC (Bld) 0.9 % Normal 0.0-6.0 [facility] Hematocrit (Bld) [Volume fraction] 33.5 % Low 34.0-48.0 [facility] Hemoglobin (Bld) [Mass/Vol] 11.0 g/dL Low 11.5-15.5 [facility] Imm Granulocytes 0.9 % Normal 0.0-5.0 [facility] Lymphocytes/100 WBC (Bld) 21.1 % Normal 20.0-42.0 [facility] MCH (RBC) [Entitic mass] 28.3 pg Normal 26.0-35.0 [facility] MCHC 32.8 % Normal 32.0-34.5 [facility] MCV (RBC) [Entitic vol] 86.1 fL Normal 80.0-99.9 [facility] Monocytes/100 WBC (Bld) 6.3 % Normal 2.0-12.0 [facility] Neutrophils/100 WBC (Bld) 70.2 % Normal 43.0-80.0 [facility] Platelet Count 339 E9/L Normal 130-450 [facility] Platelet mean volume (Bld) [Entitic vol] 9.0 fL Normal 7.0-12.0 [facility] RBC 3.89 E12/L Normal 3.50-5.50 [facility] RDW 12.2 fL Normal 11.5-15.0 [facility] WBC 6.7 E9/L Normal 4.5-11.5 [facility] CBC with Auto Differentialon 07-31-2022 Basophils (Bld) [#/Vol] 0.04 10*3/uL [facility] Basophils/100 WBC (Bld) 0.6 % 0.0 - 2.0 % [facility] Eosinophils (Bld) [#/Vol] 0.06 10*3/uL [facility] Eosinophils/100 WBC (Bld) 0.9 % 0.0 - 6.0 % [facility] Erythrocyte distribution width (RBC) [Ratio] 12.2 fL 11.5 - 15.0 fL [facility] Hematocrit (Bld) [Volume fraction] 33.5 % Low 34.0 - 48.0 % [facility] Hemoglobin (Bld) [Mass/Vol] 11.0 g/dL Low 11.5 - 15.5 g/dL [facility] Immature granulocytes (Bld) [#/Vol] 0.06 10*3/uL E9/L [facility] Immature granulocytes/100 WBC (Bld) 0.9 % 0.0 - 5.0 % [facility] Interpretation and review of laboratory results Abnormal [facility] Lymphocytes (Bld) [#/Vol] 1.41 10*3/uL Low [facility] Lymphocytes/100 WBC (Bld) 21.1 % 20.0 - 42.0 % [facility] MCH (RBC) [Entitic mass] 28.3 pg 26.0 - 35.0 pg [facility] MCHC (RBC) [Mass/Vol] 32.8 % 32.0 - 34.5 % [facility] MCV (RBC) [Entitic vol] 86.1 fL 80.0 - 99.9 fL [facility] Monocytes (Bld) [#/Vol] 0.42 10*3/uL [facility] Monocytes/100 WBC (Bld) 6.3 % 2.0 - 12.0 % [facility] Neutrophils (Bld) [#/Vol] 4.69 10*3/uL [facility] Platelet mean volume (Bld) [Entitic vol] 9.0 fL 7.0 - 12.0 fL [facility] Platelets (Bld) [#/Vol] 339 10*3/uL [facility] RBC (Bld) [#/Vol] 3.89 10*6/uL [facility] Segmented neutrophils/100 WBC (Bld) 70.2 % 43.0 - 80.0 % [facility] WBC (Bld) [#/Vol] 6.7 10*3/uL [facility] Comprehensive Metabolic Pane masood 07-31-2022 Albumin [Mass/Vol] 3.7 g/dL Normal 3.5-5.2 [facility] ALP [Catalytic activity/Vol] 49 U/L Normal 35-104 [facility] ALT [Catalytic activity/Vol] 7 U/L Normal 0-32 [facility] Anion gap [Moles/Vol] 10 mmol/L Normal 7-16 [facility] AST [Catalytic activity/Vol] 14 U/L Normal 0-31 [facility] Bilirubin [Mass/Vol] 0.2 mg/dL Normal 0.0-1.2 [facility] Calcium [Mass/Vol] 9.1 mg/dL Normal 8.6-10.2 [facility] Chloride [Moles/Vol] 105 mmol/L Normal 98-107 [facility] CO2 [Moles/Vol] 21 mmol/L Low 22-29 [facility] Creatinine [Mass/Vol] 0.6 mg/dL Normal 0.5-1.0 [facility] GFR Calculated >60 Normal >=60 [facility] Comment on above: Result Comment: Pedi atric calculator link [email or web address]://www.kidney.org/professionals/kdoqi/gfr_calculatorped Effective Feb 18, 2022 These results are not intended for use in patients <18 years of age. eGFR results are calculated without a race factor using the 2020 CKD-EPI equation. Careful clinical correlation is recommended, particularly when comparing to results calculated using previous equations. The CKD-EPI equation is less accurate in patients with extremes of muscle mass, extra-renal metabolism of creatinine, excessive creatinine ingestion, or following therapy that affects renal tubular secretion. Glucose [Mass/Vol] 97 mg/dL Normal 74-99 [facility] Potassium [Moles/Vol] 3.7 mmol/L Normal 3.5-5.[address] [facility] Protein [Mass/Vol] 6.6 g/dL Normal 6.4-8.3 [facility] Sodium [Moles/Vol] 136 mmol/L Normal 132-146 [facility] Urea nitrogen [Mass/Vol] 5 mg/dL Low 6-20 [facility] Comprehensive metabolic 2000 panelon 07-31-2022 Albumin [Mass/Vol] 3.7 g/dL 3.5 - 5.2 g/dL [facility] ALP [Catalytic activity/Vol] 49 U/L 35 - 104 U/L [facility] ALT [Catalytic activity/Vol] 7 U/L 0 - 32 U/L [facility] Anion gap [Moles/Vol] 10 mmol/L 7 - 16 mmol/L [facility] AST [Catalytic activity/Vol] 14 U/L 0 - 31 U/L [facility] Bilirubin [Mass/Vol] 0.2 mg/dL 0.0 - 1 .2 mg/dL [facility] Calcium [Mass/Vol] 9.1 mg/dL 8.6 - 10. 2 mg/dL [facility] Chloride [Moles/Vol] 105 mmol/L 98 - 10 7 mmol/L [facility] CO2 [Moles/Vol] 21 mmol/L Low 22 - 29 mmol/L [facility] Creatinine [Mass/Vol] 0.6 mg/dL 0.5 - 1.0 mg/dL [facility] GFR/1.73 sq M.predicted among non-blacks MDRD (S/P/Bld) [Vol rate/Area] mL/min/1.73 60 - PINF mL/min/1.73 [facility] Comment on above: Pediatric calculator link https://www.kidney.org/professionals/kdoqi/gfr_calculatorped Effective Feb 18, 2022 These results are not intended for use in patients <18 years of age. eGFR results are calculated without a race factor using the 2020 CKD-EPI equation. Careful clinical correlation is recommended, particularly when comparing to results calculated using previous equations. The CKD-EPI equation is less accurate in patients with extremes of muscle mass, extra-renal metabolism of creatinine, excessive creatinine ingestion, or following therapy that affects renal tubular secretion. Glucose [Mass/Vol] 97 mg/dL 74 - 99 mg/dL [facility] Interpretation and review of laboratory results Abnormal [facility] Potassium [Moles/Vol] 3.7 mmol/L 3.5 - 5.0 mmol/L [facility] Protein [Mass/Vol] 6.6 g/dL 6.4 - 8.3 g/dL [facility] Sodium [Moles/Vol] 136 mmol/L 132 - 146 mmol/L [facility] Urea nitrogen [Mass/Vol] 5 mg/dL Low 6 - 20 mg/dL [facility] HCG Quanton 07-31-2022 HCG Quant 32771.0 mIU/mL High <10 [place] [facility] Comment on above: Result Comment: The TOTAL HCG QUANT test is not intended for any use other than assessment of status. US OB LESS THAN 14 WEEKS SIN GLE OR FIRST GESTATIONon 07-31-2022 US OB LESS THAN 14 WEEKS SINGLE OR FIRST GESTATION EXAMINATION: TRANSABDOMINAL FIRST TRIMESTER OBSTETRIC PELVIC ULTRASOUND WITH COLOR DOPPLER FLOW 07/31/2022 TECHNIQUE: TRANSABDOMINAL PELVIC ULTRASOUND WITH COLOR DOPPLER FLOW COMPARISON: 06/28/2022 HISTORY: ORDERING SYSTEM PROVIDED HISTORY: vaginal bleeding hx of subchorionic hematoma TECHNOLOGIST PROVIDED HISTORY: Reason for exam:->vaginal bleeding hx of subchorionic hematoma What reading provider will be dictating this exam?->CRC FINDINGS: Uterus: 14.9 x 9.9 x 7.8 cm Gestational Sac(s): Single normal appearing gestational sac. Small lower uterine segment fluid collection measuring 3.1 x 1.0 x 2.6 cm.. Yolk Sac: Not visible, secondary to age Pole: Single pole Sidman Rump Length: 56.7 mm Heart Rate: 169 Right ovary: Not visible Left ovary: 2.4 x 2.6 x 1.9 cm, normal arterial and venous flow with color and spectral Doppler evaluation. Free fluid: No free pelvic fluid. Measurements: Estimated gestational age by current ultrasound: 12 weeks 2 days +/-1 week 1 day Estimated gestational age by LMP/prior ultrasound: 12 weeks 4 days Estimated Due Date: 02/11/2023 from 1st ultrasound IMPRESSION: 1. Living intrauterine gestation estimated at 12 weeks 2 days 2. Estimated date of delivery remains 02/11/2023 from the 1st ultrasound. 3. Small subchorionic hemorrhage measuring 3.1 x 1.0 x 2.6 cm. Interpreted by: Jason Mendez MD Signed by: Jason Mendez MD 07/31/22 Final result Normal [facility] Comment on above: Order Comment: Reaso n for exam:->vaginal bleeding hx of subchorionic hematomaWhat reading provider will be dictating this exam?->CRC 1. Living intrauteri ne gestation estimated at 12 weeks 2 days 2. Estimated date of delivery remains 02/11/2023 from the 1st ultrasound. 3. Small subchorionic hemorrhage measuring 3.1 x 1.0 x 2.6 cm. [facility] EXAMINATION: TRANSABDOMINAL FIRST TRIMESTER OBSTETRIC PELVIC ULTRASOUND WITH COLOR DOPPLER FLOW 07/31/2022 TECHNIQUE: TRANSABDOMINAL PELVIC ULTRASOUND WITH COLOR DOPPLER FLOW COMPARISON: 06/28/2022 HISTORY: ORDERING SYSTEM PROVIDED HISTORY: vaginal bleeding hx of subchorionic hematoma TECHNOLOGIST PROVIDED HISTORY: Reason for exam:->vaginal bleeding hx of subchorionic hematoma What reading provider will be dictating this exam?->CRC FINDINGS: Uterus: 14.9 x 9.9 x 7.8 cm Gestational Sac(s): Single normal appearing gestational sac. Small lower uterine segment fluid collection measuring 3.1 x 1.0 x 2.6 cm.. Yolk Sac: Not visible, secondary to age Pole: Single pole Sidman Rump Length: 56.7 mm Heart Rate: 169 Right ovary: Not visible Left ovary: 2.4 x 2.6 x 1.9 cm, normal arterial and venous flow with color and spectral Doppler evaluation. Free fluid: No free pelvic fluid. Measurements: Estimated gestational age by current ultrasound: 12 weeks 2 days +/-1 week 1 day Estimated gestational age by LMP/prior ultrasound: 12 weeks 4 days Estimated Due Date: 02/11/2023 from 1st ultrasound [facility] Jason Mendez MD - 07/31/2022 EXAMINATION: TRANSABDOMINAL FIRST TRIMESTER OBSTETRIC PELVIC ULTRASOUND WITH COLOR DOPPLER FLOW 07/31/2022 TECHNIQUE: TRANSABDOMINAL PELVIC ULTRASOUND WITH COLOR DOPPLER FLOW COMPARISON: 06/28/2022 HISTORY: ORDERING SYSTEM PROVIDED HISTORY: vaginal bleeding hx of subchorionic hematoma TECHNOLOGIST PROVIDED HISTORY: Reason for exam:->vaginal bleeding hx of subchorionic hematoma What reading provider will be dictating this exam?->CRC FINDINGS: Uterus: 14.9 x 9.9 x 7.8 cm Gestational Sac(s): Single normal appearing gestational sac. Small lower uterine segment fluid collection measuring 3.1 x 1.0 x 2.6 cm.. Yolk Sac: Not visible, secondary to age Pole: Single pole Sidman Rump Length: 56.7 mm Heart Rate: 169 Right ovary: Not visible Left ovary: 2.4 x 2.6 x 1.9 cm, normal arterial and venous flow with color and spectral Doppler evaluation. Free fluid: No free pelvic fluid. Measurements: Estimated gestational age by current ultrasound: 12 weeks 2 days +/-1 week 1 day Estimated gestational age by LMP/prior ultrasound: 12 weeks 4 days Estimated Due Date: 02/11/2023 from 1st ultrasound IMPRESSION: 1. Living intrauterine gestation estimated at 12 weeks 2 days 2. Estimated date of delivery remains 02/11/2023 from the 1st ultrasound. 3. Small subchorionic hemorrhage measuring 3.1 x 1.0 x 2.6 cm. [employer] Work Phone: Radiology Study observation (narrative) [employer] Work Phone: US OB LESS THAN 14 WEEKS SIN GLE OR FIRST GESTATIONOrdered By: Jason Mendez on 07-31-2022 [employer] Work Phone: Urinalysison 07-31-2022 Bilirubin Ql (U) Negative Negative [employer] Clarity (U) Clear Clear [facility] Color (U) Yellow Straw/Yellow [facility] Glucose Test strip (U) [Mass/Vol] Negative Negative mg/dL [facility] [facility] Hemoglobin Ql (U) Negative Negative [employer] Interpretation and review of laboratory results Abnormal [facility] Ketones (U) [Mass/Vol] TRACE Abnormal Negat latricia mg/dL [facility] Leukocyte esterase Test strip Ql (U) Negative Negative [facility] Nitrite Ql (U) Negative Negative [facility] pH (U) 5.5 [pH] 5.0 - 9.0 [facility] Protein (U) [Mass/Vol] Negative Negat latricia mg/dL [facility] Specific gravity (U) [Rel density] 1.005 - 1.030 [facility] Urobilinogen Qn (U) 0.2 NINF [facility] Urinalysis, reflex to micros copicon 07-31-2022 Bilirubin Ql (U) Negative Normal Negative [facility] Clarity (U) Clear Normal Clear [facility] Color (U) Yellow Normal Straw/Yellow [facility] Glucose Ql (U) Negative Normal Negative [facility] Hemoglobin Ql (U) Negative Normal Negative [facility] Ketones Ql (U) TRACE Abnormal Negative [facility] Leukocyte esterase Test strip Ql (U) Negative Normal Negative [facility] Nitrite Ql (U) Negative Normal Negative [facility] pH (U) 5.5 [pH] Normal 5.0-9.0 [facility] Protein Ql (U) Negative Normal Negative [facility] Specific gravity (U) [Rel density] >=1.030 Normal 1.005-1.030 [facility] Urobilinogen Qn (U) 0.2 {Dominique'U}/dL Normal < 2.0 [facility] hCG, quantitative, on 07-31-2022 hCG Quant [id number] High [facility] Comment on above: The TOTAL HCG QUANT test is not intended for any use other than assessment of status. Interpretation and review of laboratory results Abnormal [facility] CBC With Platelet and Differ entialon 06-28-2022 Abs Imm Granulocytes 0.04 E9/L Normal [facility] Absolute Basophils 0.06 E9/L Normal 0.00-0.20 [facility] Absolute Eosinophils 0.12 E9/L Normal 0.05-0.50 [facility] Absolute Lymphocytes 2.45 E9/L Normal 1.50-4.00 [facility] Absolute Monocytes 0.64 E9/L Normal 0.10-0.95 [facility] Absolute Neutrophils 6.85 E9/L Normal 1.80-7.30 [facility] Basophils/100 WBC (Bld) 0.6 % Normal 0.0-2.0 [facility] Eosinophils/100 WBC (Bld) 1.2 % Normal 0.0-6.0 [facility] Hematocrit (Bld) [Volume fraction] 37.4 % Normal 34.0-48.0 [facility] Hemoglobin (Bld) [Mass/Vol] 12.2 g/dL Normal 11.5-15.5 [facility] Imm Granulocytes 0.4 % Normal 0.0-5.0 [facility] Lymphocytes/100 WBC (Bld) 24.1 % Normal 20.0-42.0 [facility] MCH (RBC) [Entitic mass] 28.2 pg Normal 26.0-35.0 [facility] MCHC 32.6 % Normal 32.0-34.5 [facility] MCV (RBC) [Entitic vol] 86.4 fL Normal 80.0-99.9 [facility] Monocytes/100 WBC (Bld) 6.3 % Normal 2.0-12.0 [facility] Neutrophils/100 WBC (Bld) 67.4 % Normal 43.0-80.0 [facility] Platelet Count 370 E9/L Normal 130-450 [facility] Platelet mean volume (Bld) [Entitic vol] 9.0 fL Normal 7.0-12.0 [facility] RBC 4.33 E12/L Normal 3.50-5.50 [facility] RDW 11.9 fL Normal 11.5-15.0 [facility] WBC 10.2 E9/L Normal 4.5-11.5 [facility] CBC with Auto Differentialon 06-28-2022 Basophils (Bld) [#/Vol] 0.06 10*3/uL [facility] Basophils/100 WBC (Bld) 0.6 % 0.0 - 2.0 % [facility] Eosinophils Absolute 0.12 [facility] Eosinophils/100 WBC (Bld) 1.2 % 0.0 - 6.0 % [facility] Hematocrit (Bld) [Volume fraction] 37.4 % 34.0 - 48.0 % [facility] Hemoglobin (Bld) [Mass/Vol] 12.2 g/dL 11.5 - 15.5 g/dL [facility] Immature Granulocytes # 0.04 E9/L [facility] Immature granulocytes/100 WBC (Bld) 0.4 % 0.0 - 5.0 % [facility] Lymphocytes Absolute 2.45 [facility] Lymphocytes/100 WBC (Bld) 24.1 % 20.0 - 42.0 % [facility] MCH (RBC) [Entitic mass] 28.2 pg 26.0 - 35.0 pg [facility] MCHC (RBC) [Mass/Vol] 32.6 % 32.0 - 34.5 % [facility] MCV (RBC) [Entitic vol] 86.4 fL 80.0 - 99.9 fL [facility] Monocytes Absolute 0.64 [facility] Monocytes/100 WBC (Bld) 6.3 % 2.0 - 12.0 % [facility] Neutrophils Absolute 6.85 [facility] Neutrophils/100 WBC (Bld) 67.4 % 43.0 - 80.0 % [facility] Platelet distribution width (Bld) [Ratio] 11.9 fL 11.5 - 15.0 fL [facility] Platelet mean volume (Bld) [Entitic vol] 9.0 fL 7.0 - 12.0 fL [facility] Platelets (Bld) [#/Vol] 370 10*3/uL [facility] RBC (Bld) [#/Vol] 4.33 10*6/uL [facility] WBC (Bld) [#/Vol] 10.2 10*3/uL [facility] Comprehensive Metabolic Pane masood 06-28-2022 Albumin [Mass/Vol] 4.3 g/dL Normal 3.5-5.2 [facility] ALP [Catalytic activity/Vol] 57 U/L Normal 35-104 [facility] ALT [Catalytic activity/Vol] 24 U/L Normal 0-32 [facility] Anion gap [Moles/Vol] 11 mmol/L Normal 7-16 [facility] AST [Catalytic activity/Vol] 17 U/L Normal 0-31 [facility] Bilirubin [Mass/Vol] mg/dL Normal 0.0-1.2 [facility] Calcium [Mass/Vol] 9.5 mg/dL Normal 8.6-10.2 [facility] Chloride [Moles/Vol] 104 mmol/L Normal 98-107 [facility] CO2 [Moles/Vol] 22 mmol/L Normal 22-29 [facility] Creatinine [Mass/Vol] 0.6 mg/dL Normal 0.5-1.0 [facility] GFR Calculated >60 Normal >=60 [facility] Comment on above: Result Comment: Raghavendra izaguirrec calculator link [email or web address]://www.kidney.org/professionals/kdoqi/gfr_calculatorped Effective Feb 18, 2022 These results are not intended for use in patients <18 years of age. eGFR results are calculated without a race factor using the 2020 CKD-EPI equation. Careful clinical correlation is recommended, particularly when comparing to results calculated using previous equations. The CKD-EPI equation is less accurate in patients with extremes of muscle mass, extra-renal metabolism of creatinine, excessive creatinine ingestion, or following therapy that affects renal tubular secretion. Glucose [Mass/Vol] 84 mg/dL Normal 74-99 [facility] Potassium [Moles/Vol] 3.5 mmol/L Normal 3.5-5.[address] [facility] Protein [Mass/Vol] 7.4 g/dL Normal 6.4-8.3 [facility] Sodium [Moles/Vol] 137 mmol/L Normal 132-146 [facility] Urea nitrogen [Mass/Vol] 9 mg/dL Normal 6-20 [facility] Albumin [Mass/Vol] 4.3 g/dL 3.5 - 5.2 g/dL [facility] ALP (Bld) [Catalytic activity/Vol] 57 U/L 35 - 104 U/L [facility] ALT [Catalytic activity/Vol] 24 U/L 0 - 32 U/L [facility] Anion gap [Moles/Vol] 11 mmol/L 7 - 16 mmol/L [facility] AST [Catalytic activity/Vol] 17 U/L 0 - 31 U/L [facility] Bilirubin [Mass/Vol] mg/dL 0.0 - 1 .2 mg/dL [facility] Calcium [Mass/Vol] 9.5 mg/dL 8.6 - 10. 2 mg/dL [facility] Chloride [Moles/Vol] 104 mmol/L 98 - 10 7 mmol/L [facility] CO2 [Moles/Vol] 22 mmol/L 22 - 29 mmol/L [facility] Creatinine [Mass/Vol] 0.6 mg/dL 0.5 - 1.0 mg/dL [facility] GFR/1.73 sq M.predicted MDRD (S/P/Bld) [Vol rate/Area] mL/min/1.73 60 - PINF mL/min/1.73 [facility] Comment on above: Pediatric calculator link https://www.kidney.org/professionals/kdoqi/gfr_calculatorped Effective Feb 18, 2022 These results are not intended for use in patients <18 years of age. eGFR results are calculated without a race factor using the 2020 CKD-EPI equation. Careful clinical correlation is recommended, particularly when comparing to results calculated using previous equations. The CKD-EPI equation is less accurate in patients with extremes of muscle mass, extra-renal metabolism of creatinine, excessive creatinine ingestion, or following therapy that affects renal tubular secretion. Glucose [Mass/Vol] 84 mg/dL 74 - 99 mg/dL [facility] Potassium [Moles/Vol] 3.5 mmol/L 3.5 - 5.0 mmol/L [facility] Protein [Mass/Vol] 7.4 g/dL 6.4 - 8.3 g/dL [facility] Sodium [Moles/Vol] 137 mmol/L 132 - 146 mmol/L [facility] U[facility] nitrogen (BldV) [Mass/Vol] 9 mg/dL 6 - 20 mg/dL [facility] Culture, Urineon 06-28-2022 Culture, Urine Culture, Urine-: Growth not present Normal [facility] HCG Quanton 06-28-2022 HCG Quant [id number] mIU/mL High <10 [facility] Comment on above: Result Comment: The TOTAL HCG QUANT test is not intended for any use other than assessment of status. POC Urine Qualon 0 06-28-2022 Beta HCG ( test) Ql (U) Positive Negative [facility] Work Phone: Beta HCG ( test) Ql (U) [id number] [facility] Work Phone: Negative QC Pass/Fail Pass [facility] Work Phone: Positive QC Pass/Fail Pass [facility] Work Phone: [facility] Work Phone: TYPE AND SCREENon 06-28-2022 ABO/Rh Positive [facility] [employer] [facility] [employer] Type and Screen Capture 3 sc rn cellon 06-28-2022 ABO and Rh group Nom (Bld) Blood group A Rh(D) positive Normal [facility] Antibody 3 Cell Scrn Capture Negative Normal [facility] US OB TRANSVAGINALon 023 US OB TRANSVAGINAL EXAMINATION: FIRST TRIMESTER OBSTETRIC ULTRASOUND 06/28/2022 TECHNIQUE: Transvaginal first trimester obstetric pelvic duplex ultrasound was performed with real-time imaging, color flow Doppler imaging, and spectral analysis. COMPARISON: None HISTORY: ORDERING SYSTEM PROVIDED HISTORY: Evaluate , bleeding 8 weeks TECHNOLOGIST PROVIDED HISTORY: Reason for exam:->Evaluate , bleeding 8 weeks What reading provider will be dictating this exam?->CRC FINDINGS: Uterus: 8.5 cm. No uterine masses. Patient has a scar. Cervix is closed measuring 3.4 cm. Gestational Sac(s): Single normal appearing gestational sac. Small curvilinear heterogeneous fluid collection adjacent to the gestational sac measures 5 mm and is consistent with a small subchorionic hemorrhage. Yolk Sac: Present Pole: Single pole Sidman Rump Length: 1.2 cm Heart Rate: 138 beats per minute Right ovary: 1.7 x 1.8 x 1.9 cm. Normal appearance of the right ovary. Normal color flow and arterial/venous spectral waveforms. No right adnexal mass. Left ovary: 2.4 x 2.4 x 2.5 cm. Normal appearance of the left ovary. Normal color flow and arterial/venous spectral waveforms. No left adnexal mass. Free fluid: Trace free fluid identified in the cul-de-sac and right hemipelvis. Measurements: Estimated gestational age by current ultrasound: 7 weeks and 3 days Estimated date of delivery based on current ultrasound: February 11, 2023 Estimated gestational age by LMP/prior ultrasound: 7 weeks and 6 days Estimated Due Date based on the clinical age provided: February 08, 2023 IMPRESSION: 1. Single living intrauterine gestation with estimated gestational age by ultrasound of 7 weeks and 3 days. Clinical age provided is 7 weeks and 6 days. heart rate was 138 beats per minute. (Estimated date of delivery based on the clinical age provided is February 08, 2023.) 2. Small subchorionic hemorrhage present. 3. Normal appearance of the bilateral ovaries. There are no adnexal masses. Normal ovarian vascularity. 4. Trace free fluid identified in the cul-de-sac and right hemipelvis. Interpreted by: Vj Mcwilliams DO Signed by: Vj Mcwilliams DO 06/28/22 Final result Normal [facility] Comment on above: Order Comment: Reaso n for exam:->Evaluate , bleeding 8 weeksWhat reading provider will be dictating this exam?->CRC 1. Single living intrauterine gestation with estimated gestational age by ultrasound of 7 weeks and 3 days. Clinical age provided is 7 weeks and 6 days. heart rate was 138 beats per minute. (Estimated date of delivery based on the clinical age provided is February 08, 2023.) 2. Small subchorionic hemorrhage present. 3. Normal appearance of the bilateral ovaries. There are no adnexal masses. Normal ovarian vascularity. 4. Trace free fluid identified in the cul-de-sac and right hemipelvis. [facility] EXAMINATION: FIRST TRIMESTER OBSTETRIC ULTRASOUND 06/28/2022 TECHNIQUE: Transvaginal first trimester obstetric pelvic duplex ultrasound was performed with real-time imaging, color flow Doppler imaging, and spectral analysis. COMPARISON: None HISTORY: ORDERING SYSTEM PROVIDED HISTORY: Evaluate , bleeding 8 weeks TECHNOLOGIST PROVIDED HISTORY: Reason for exam:->Evaluate , bleeding 8 weeks What reading provider will be dictating this exam?->CRC FINDINGS: Uterus: 8.5 cm. No uterine masses. Patient has a scar. Cervix is closed measuring 3.4 cm. Gestational Sac(s): Single normal appearing gestational sac. Small curvilinear heterogeneous fluid collection adjacent to the gestational sac measures 5 mm and is consistent with a small subchorionic hemorrhage. Yolk Sac: Present Pole: Single pole Sidman Rump Length: 1.2 cm Heart Rate: 138 beats per minute Right ovary: 1.7 x 1.8 x 1.9 cm. Normal appearance of the right ovary. Normal color flow and arterial/venous spectral waveforms. No right adnexal mass. Left ovary: 2.4 x 2.4 x 2.5 cm. Normal appearance of the left ovary. Normal color flow and arterial/venous spectral waveforms. No left adnexal mass. Free fluid: Trace free fluid identified in the cul-de-sac and right hemipelvis. Measurements: Estimated gestational age by current ultrasound: 7 weeks and 3 days Estimated date of delivery based on current ultrasound: February 11, 2023 Estimated gestational age by LMP/prior ultrasound: 7 weeks and 6 days Estimated Due Date based on the clinical age provided: February 08, 2023 [facility] Vj Mcwilliams, DO - 06/28/2022 EXAMINATION: FIRST TRIMESTER OBSTETRIC ULTRASOUND 06/28/2022 TECHNIQUE: Transvaginal first trimester obstetric pelvic duplex ultrasound was performed with real-time imaging, color flow Doppler imaging, and spectral analysis. COMPARISON: None HISTORY: ORDERING SYSTEM PROVIDED HISTORY: Evaluate , bleeding 8 weeks TECHNOLOGIST PROVIDED HISTORY: Reason for exam:->Evaluate , bleeding 8 weeks What reading provider will be dictating this exam?->CRC FINDINGS: Uterus: 8.5 cm. No uterine masses. Patient has a scar. Cervix is closed measuring 3.4 cm. Gestational Sac(s): Single normal appearing gestational sac. Small curvilinear heterogeneous fluid collection adjacent to the gestational sac measures 5 mm and is consistent with a small subchorionic hemorrhage. Yolk Sac: Present Pole: Single pole Sidman Rump Length: 1.2 cm Heart Rate: 138 beats per minute Right ovary: 1.7 x 1.8 x 1.9 cm. Normal appearance of the right ovary. Normal color flow and arterial/venous spectral waveforms. No right adnexal mass. Left ovary: 2.4 x 2.4 x 2.5 cm. Normal appearance of the left ovary. Normal color flow and arterial/venous spectral waveforms. No left adnexal mass. Free fluid: Trace free fluid identified in the cul-de-sac and right hemipelvis. Measurements: Estimated gestational age by current ultrasound: 7 weeks and 3 days Estimated date of delivery based on current ultrasound: February 11, 2023 Estimated gestational age by LMP/prior ultrasound: 7 weeks and 6 days Estimated Due Date based on the clinical age provided: February 08, 2023 IMPRESSION: 1. Single living intrauterine gestation with estimated gestational age by ultrasound of 7 weeks and 3 days. Clinical age provided is 7 weeks and 6 days. heart rate was 138 beats per minute. (Estimated date of delivery based on the clinical age provided is February 08, 2023.) 2. Small subchorionic hemorrhage present. 3. Normal appearance of the bilateral ovaries. There are no adnexal masses. Normal ovarian vascularity. 4. Trace free fluid identified in the cul-de-sac and right hemipelvis. [facility] Phone: Radiology Study observation (narrative) [facility] Work Phone: US OB TRANSVAGINALOrdered By : Vj Mcwilliams on 06-28-2022 [facility] [employer] Work Phone: Urinalysis with Microscopico n 06-28-2022 Bacteria, UA FEW Abnormal None Seen /HPF [facility] Bilirubin Urine Negative Negative [facility] Blood, Urine SMALL Abnormal Negative [facility] Clarity, UA Clear Clear [facility] Color, UA Yellow Straw/Yellow [facility] Epithelial Cells, UA FEW /HPF [facility] Glucose, Ur Negative Negative mg/dL [facility] Interpretation and review of laboratory results Abnormal [facility] Ketones Ql (U) 15 mg/dL Abnormal Negative [facility] Leukocyte esterase Test strip Ql (U) Negative Negative [facility] Mucus, UA Present Abnormal None Seen /LPF [facility] Nitrite, Urine Negative Negative [facility] pH, UA 6.0 5.0 - 9.0 [facility] Protein, UA Negative Negative mg/dL [facility] RBC, UA 2-5 [facility] Specific [place], UA 1.005 - 1.030 [facility] Urobilinogen, Urine 0.2 NINF [facility] WBC, UA 1-3 [facility] Urinalysis, with microscopic on 06-28-2022 Epithelial cells LM Ql (Urine sed) FEW Normal [facility] Urine Bacteria FEW Abnormal None Seen [facility] Urine Mucous Present Abnormal None Seen [facility] Urine RBC 2-5 Normal 0-2 [facility] Urine WBC 1-3 Normal 0-5 [facility] Bilirubin Ql (U) Negative Normal Negative [facility] Clarity (U) Clear Normal Clear [facility] Color (U) Yellow Normal Straw/Yellow [facility] Glucose Ql (U) Negative Normal Negative [facility] Hemoglobin Ql (U) SMALL Abnormal Negative [facility] Ketones Ql (U) 15 mg/dL Abnormal Negative [facility] Leukocyte esterase Test strip Ql (U) Negative Normal Negative [facility] Nitrite Ql (U) Negative Normal Negative [facility] pH (U) 6.0 [pH] Normal 5.0-9.0 [facility] Protein Ql (U) Negative Normal Negative [facility] Specific gravity (U) [Rel density] >=1.030 Normal 1.005-1.030 [facility] Urobilinogen Qn (U) 0.2 {Dominique'U}/dL Normal < 2.0 [facility] hCG, quantitative, on 06-28-2022 hCG Quant [id number] High NINF [facility] Comment on above: The TOTAL HCG QUANT test is not intended for any use other than assessment of status. Interpretation and review of laboratory results Abnormal [facility] US PREG TRANSVAG >/= TO 14 W EEKSon 06-21-2022 [place] ALT (SGPT) ser/plasOrdered B y: Perry Perea on 05-14-2022 ALT [Catalytic activity/Vol] 10 U/L 10-54 [facility] Absolute lymphocyte countOrd ered By: Perry Perea on 05-14-2022 Lymphocytes Auto (Unsp spec) [#/Vol] 2.1 10*3/uL 1.10-4.80 [facility] Albumin [Mass/volume] in Ser um or PlasmaOrdered By: Perry Perea on 05-14-2022 Albumin [Mass/Vol] 4.1 g/dL 3.4-4.8 [facility] Albumin/Globulin [Mass Ratio ] in Serum or PlasmaOrdered By: Perry Perea on 05-14-2022 Albumin/Globulin [Mass ratio] 1.7 {ratio} 1.1-2.2 [facility] Alkaline phosphatase [Enzyma tic activity/volume] in Serum or PlasmaOrdered By: Perry Perea on 05-14-2022 ALP [Catalytic activity/Vol] 49 U/L 42-121 [facility] Aspartate aminotransferase [ Enzymatic activity/volume] in Serum or PlasmaOrdered By: Perry Perea on 05-14-2022 AST [Catalytic activity/Vol] 15 U/L 10-41 [facility] Basophils Auto (Bld) [#/Vol] Ordered By: Perry Perea on 05-14-2022 Basophils (Bld) [#/Vol] 0.1 10*3/uL 0.00-0.20 [facility] Basophils/100 WBC Auto (Bld) Ordered By: Perry Perea on 05-14-2022 Basophils/100 WBC (Bld) 0.8 % 0.0-1.5 [facility] Bilirubin.total [Mass/volume ] in Serum or PlasmaOrdered By: Perry Perea on 05-14-2022 Bilirubin [Mass/Vol] 0.4 mg/dL 0.3-1.5 [facility] CBC W/ Auto Diffon Basophils (Bld) [#/Vol] 0.1 10*3/uL Normal 0.00-0.20 [facility] ([place]) Comment on above: Performed By: #### C D #### [facility] [address] [place] [address] Basophils/100 WBC (Bld) 0.8 % Normal 0.0-1.5 [facility] ([place]) Comment on above: Performed By: #### C D #### [facility] [address] [place] [address] Eosinophils (Bld) [#/Vol] 0.1 10*3/uL Normal 0.00-0.33 [facility] ([place]) Comment on above: Performed By: #### C D #### [facility] [address] [place] [address] Eosinophils/100 WBC (Bld) 1.9 % Normal 0.0-3.0 [facility] ([place]) Comment on above: Performed By: #### C D #### [facility] [address] [place] [address] Erythrocyte distribution width (RBC) [Ratio] 12.3 % Normal 10.9-14.3 [facility] ([place]) Comment on above: Performed By: #### C D #### [facility] [address] [place] [address] Hematocrit (Bld) [Volume fraction] 35.4 % Low 36.0-44.0 [facility] ([place]) Comment on above: Performed By: #### C D #### [facility] [address] [place] [address] Hemoglobin (Bld) [Mass/Vol] 11.8 g/dL Low 12.0-15.0 [facility] ([place]) Comment on above: Performed By: #### C D #### [facility] [address] [place] [address] Lymphocytes Auto (Unsp spec) [#/Vol] 2.1 10*3/uL Normal 1.10-4.80 [facility] ([place]) Comment on above: Performed By: #### C D #### [facility] [address] [place] [address] Lymphocytes/100 WBC (Bld) 31.8 % Normal 24.0-44.0 [facility] ([place]) Comment on above: Performed By: #### C D #### [facility] [address] [place] [address] MCH (RBC) [Entitic mass] 28.7 pg Normal 28.0-34.0 [facility] ([place]) Comment on above: Performed By: #### C D #### [facility] [address] [place] [address] MCHC (RBC) [Mass/Vol] 33.3 g/dL Normal 33.0-37.0 [facility] ([place]) Comment on above: Performed By: #### C D #### [facility] [address] [place] [address] MCV (RBC) [Entitic vol] 86.2 fL Normal 80.0-100.0 [facility] ([place]) Comment on above: Performed By: #### C D #### [facility] [address] [place] [address] Monocytes (Bld) [#/Vol] 0.5 10*3/uL Normal 0.20-0.70 [facility] ([place]) Comment on above: Performed By: #### C D #### [facility] [address] [place] [address] Monocytes/100 WBC (Bld) 7.8 % Normal 3.4-9.0 [facility] ([place]) Comment on above: Performed By: #### C D #### [facility] [address] [place] [address] Neutrophils (Bld) [#/Vol] 3.8 10*3/uL Normal 1.83-8.70 [facility] ([place]) Comment on above: Performed By: #### C D #### [facility] [address] [place] [address] Neutrophils/100 WBC (Bld) 57.7 % Normal 40.0-74.0 [facility] ([place]) Comment on above: Performed By: #### C D #### [facility] [address] [place] [address] Platelet mean volume (Bld) [Entitic vol] 7.5 fL Normal 7.4-10.4 [facility] ([place]) Comment on above: Performed By: #### C D #### [facility] [address] [place] [address] Platelets (Bld) [#/Vol] 366 10*3/uL Normal 150-450 [facility] ([place]) Comment on above: Performed By: #### C D #### [facility] [address] [place] [address] RBC (Bld) [#/Vol] 4.11 10*6/uL Normal 4.00-4.90 [facility] ([place]) Comment on above: Performed By: #### C D #### [facility] [address] [place] [address] WBC (Bld) [#/Vol] 6.5 10*3/uL Normal 4.5-11.0 [facility] ([place]) Comment on above: Performed By: #### C D #### [facility] [address] [place] [address] Carbon dioxide, total [Moles /volume] in Serum or PlasmaOrdered By: Perry Perea on 05-14-2022 CO2 [Moles/Vol] 24 mmol/L 21-31 [facility] Chloride [Moles/volume] in S aren or PlasmaOrdered By: Perry Perea on 05-14-2022 Chloride [Moles/Vol] 105 mmol/L 98-107 [facility] Comprehensive metabolic 2000 panelon 05-14-2022 Albumin [Mass/Vol] 4.1 g/dL Normal 3.4-4.8 [facility] ([place]) Comment on above: Performed By: #### L IPID, [id number], 6-3 #### [facility] [address] [place] [address] Albumin/Globulin [Mass ratio] 1.7 {ratio} Normal 1.1-2.2 [facility] ([place]) Comment on above: Performed By: #### L IPID, [id number], 6-3 #### [facility] [address] [place] [address] ALP [Catalytic activity/Vol] 49 U/L Normal 42-121 [facility] ([place]) Comment on above: Performed By: #### L IPID, [id number], 6-3 #### [facility] [address] [place] [address] ALT [Catalytic activity/Vol] 10 U/L Normal 10-54 [facility] ([place]) Comment on above: Performed By: #### L IPID, [id number], 3 #### [facility] [address] [place] [address] Anion gap [Moles/Vol] 8.0 mmol/L Normal 3-11 [facility] ([place]) Comment on above: Performed By: #### L IPID, [id number], 3 #### [facility] [address] [place] [address] AST [Catalytic activity/Vol] 15 U/L Normal 10-41 [facility] ([place]) Comment on above: Performed By: #### L IPID, , 3 #### [facility] [address] [place] [address] Bilirubin [Mass/Vol] 0.4 mg/dL Normal 0.3-1.5 [facility] ([place]) Comment on above: Performed By: #### L IPID, , 3 #### [facility] [address] [place] [address] Calcium [Mass/Vol] 8.8 mg/dL Normal 8.5-10.5 [facility] ([place]) Comment on above: Performed By: #### L IPID, [id number], 3 #### [facility] [address] [place] [address] Chloride [Moles/Vol] 105 mmol/L Normal 98-107 [facility] ([place]) Comment on above: Performed By: #### L IPID, [id number], 3 #### [facility] [address] [place] [address] CO2 [Moles/Vol] 24 mmol/L Normal 21-31 [facility] ([place]) Comment on above: Performed By: #### L IPID, [id number], 3 #### [address] [place] [address] Creatinine [Moles/Vol] 0.8 mg/dL Normal 0.4-1.0 [facility] ([place]) Comment on above: Performed By: #### L IPID, [id number], 6-3 #### [facility] [address] [place] [address] Creatinine and Glomerular filtration rate.predicted panel (S/P/Bld) 104 mL/min Normal >60 [facility] ([place]) Comment on above: Performed By: #### L IPID, [id number], 3 #### [facility] [address] [place] [address] GFR/1.73 sq M.predicted among non-blacks MDRD (S/P/Bld) [Vol rate/Area] 86 mL/min/{1.73_m2} Normal >60 [facility] ([place]) Comment on above: Performed By: #### L IPID, [id number], 63 #### [facility] [address] [place] [address] Globulin (S) [Mass/Vol] 2.4 g/dL Normal 1.9-3.9 [facility] ([place]) Comment on above: Performed By: #### L IPID, [id number], 6-3 #### [facility] [address] [place] [address] Glucose [Mass/Vol] 93 mg/dL Normal 70-99 [facility] ([place]) Comment on above: Performed By: #### L IPID, [id number], 6-3 #### [address] [address] Potassium [Moles/Vol] 4.0 mmol/L Normal 3.6-5.0 [facility] ([place]) Comment on above: Performed By: #### L IPID, [id number], 6-3 #### [address] [place] [address] Protein [Mass/Vol] 6.5 g/dL Normal 5.9-7.8 [facility] ([place]) Comment on above: Performed By: #### L IPID, [id number], [id number] #### [facility] [address] [place] [address] Sodium [Moles/Vol] 137 mmol/L Normal 135-145 [facility] ([place]) Comment on above: Performed By: #### L IPID, [id number], [id number] #### [facility] [address] [place] [address] Urea nitrogen [Mass/Vol] 12 mg/dL Normal 8-21 [facility] ([place]) Comment on above: Performed By: #### L IPID, [id number], [id number] #### [facility] [address] [place] [address] Creatinine and Glomerular fi ltration rate.predicted panel (S/P/Bld)Ordered By: Perry Perea on 05-14-2022 GFR/1.73 sq M.predicted MDRD (S/P/Bld) [Vol rate/Area] 104 mL/min/{1.73_m2} >60 [facility] Eosinophils Auto (Bld) [#/Vo l]Ordered By: Perry Perea on 05-14-2022 Eosinophils (Bld) [#/Vol] 0.1 10*3/uL 0.00-0.33 [facility] Eosinophils/100 WBC Auto (Bl d)Ordered By: Perry Perea on 05-14-2022 Eosinophils/100 WBC (Bld) 1.9 % 0.0-3.0 [facility] Erythrocyte distribution wid th Auto (RBC) [Ratio]Ordered By: Perry Perea on 05-14-2022 Erythrocyte distribution width (RBC) [Ratio] 12.3 % 10.9-14.3 [facility] Estimated glomerular filtrat ion rate (GFR) non- AmericanOrdered By: Perry Perea on 05-14-2022 GFR/1.73 sq M.predicted among non-blacks MDRD (S/P/Bld) [Vol rate/Area] 86 mL/min/{1.73_m2} >60 [facility] Hematocrit Auto (Bld) [Volum e fraction]Ordered By: Perry Perea on 05-14-2022 Hematocrit (Bld) [Volume fraction] 35.4 % 36.0-44.0 [facility] Hemoglobin [Mass/volume] in BloodOrdered By: Perry Perea on 05-14-2022 Hemoglobin (Bld) [Mass/Vol] 11.8 g/dL 12.0-15.0 [facility] Lipid Panelon 05-14-2022 Cholesterol [Mass/Vol] 181 mg/dL Normal 140-200 [facility] ([place]) Comment on above: Performed By: #### L IPID, [id number], 6-3 #### [facility] [address] [place] [address] Cholesterol in HDL [Mass/Vol] 42 mg/dL Normal 35-85 [facility] ([place]) Comment on above: Performed By: #### L IPID, [id number], 6-3 #### [facility] [address] [place] [address] Cholesterol in LDL [Mass/Vol] 120 mg/dL Normal <129 [facility] ([place]) Comment on above: Performed By: #### L IPID, [id number], 6-3 #### [facility] [address] [place] [address] Cholesterol in LDL/Cholesterol in HDL [Mass ratio] 2.9 {ratio} Normal [facility] ([place]) Comment on above: Result Comment: MEN WOMEN 1/2 Average Risk 1.00 1.47 Average Risk 3.55 3.22 2X Average Risk 6.25 5.03 3X Average Risk 7.99 6.14 Performed By: #### L IPID, [id number], [id number] #### [facility] [address] [place] [address] Triglyceride [Mass/Vol] 187 mg/dL Normal 41-189 [facility] ([place]) Comment on above: Performed By: #### L IPID, [id number], [id number] #### [facility] [address] [place] [address] Lymphocytes/100 WBC Auto (Bl d)Ordered By: Perry Perea on 05-14-2022 Lymphocytes/100 WBC (Bld) 31.8 % 24.0-44.0 [facility] MCH Auto (RBC) [Entitic mass ]Ordered By: Perry Perea on 05-14-2022 MCH (RBC) [Entitic mass] 28.7 pg 28.0-34.0 [facility] MCHC Auto (RBC) [Mass/Vol]Or dered By: Perry Perea on 05-14-2022 MCHC (RBC) [Mass/Vol] 33.3 g/dL 33.0-37.0 [facility] MCV (mean corpuscular volume ) determinationOrdered By: Perry Perea on 05-14-2022 MCV (RBC) [Entitic vol] 86.2 fL 80.0-100.0 [facility] Monocytes Auto (Bld) [#/Vol] Ordered By: Perry Perea on 05-14-2022 Monocytes (Bld) [#/Vol] 0.5 10*3/uL 0.20-0.70 [facility] Monocytes/100 WBC Auto (Bld) Ordered By: Perry Perea on 05-14-2022 Monocytes/100 WBC (Bld) 7.8 % 3.4-9.0 [facility] Neutrophils Auto (Bld) [#/Vo l]Ordered By: Perry Perea on 05-14-2022 Neutrophils (Bld) [#/Vol] 3.8 10*3/uL 1.83-8.70 [facility] Neutrophils/100 WBC Auto (Bl d)Ordered By: Perry Perea on 05-14-2022 Neutrophils/100 WBC (Bld) 57.7 % 40.0-74.0 [facility] Platelet mean volume Auto (B ld) [Entitic vol]Ordered By: Perry Perea on 05-14-2022 Platelet mean volume (Bld) [Entitic vol] 7.5 fL 7.4-10.4 [facility] Platelets Auto (Bld) [#/Vol] Ordered By: Perry Perea on 05-14-2022 Platelets (Bld) [#/Vol] 366 10*3/uL 150-450 [facility] Potassium [Moles/volume] in Serum or PlasmaOrdered By: Perry Perea on 05-14-2022 Potassium [Moles/Vol] 4.0 mmol/L 3.6-5.0 [facility] RBC Auto (Bld) [#/Vol]Ordere d By: Perry Perea on 05-14-2022 RBC (Bld) [#/Vol] 4.11 10*6/uL 4.00-4.90 [facility] Serum globulin measurement ( mass/volume)Ordered By: Perry Perea on 05-14-2022 Globulin (S) [Mass/Vol] 2.4 g/dL 1.9-3.9 [facility] Serum glucose measurement (m ass/volume)Ordered By: Perry Perea on 05-14-2022 Glucose [Mass/Vol] 93 mg/dL 70-99 [facility] Serum or plasma anion gap de termination (moles/volume)Ordered By: Perry Perea on 05-14-2022 Anion gap [Moles/Vol] 8.0 mmol/L 3-11 [facility] Serum or plasma calcium oly urement (mass/volume)Ordered By: Perry Perea on 05-14-2022 Calcium [Mass/Vol] 8.8 mg/dL 8.5-10.5 [facility] Serum or plasma cholesterol in LDL measurement (mass/volume)Ordered By: Perry Perea on 05-14-2022 Cholesterol in LDL [Mass/Vol] 120 mg/dL <128 [facility] Serum or plasma cholesterol measurement (mass/volume)Ordered By: Perry Perea on 05-14-2022 Cholesterol [Mass/Vol] 181 mg/dL 140-200 [facility] Serum or plasma creatinine m easurement (moles/volume)Ordered By: Perry Perea on 05-14-2022 Creatinine [Moles/Vol] 0.8 mg/dL 0.4-1.0 [facility] Serum or plasma high density lipoprotein (HDL) cholesterol measurementOrdered By: Perry Perea on 05-14-2022 Cholesterol in HDL [Mass/Vol] 42 mg/dL 35-85 [facility] Serum or plasma low density lipoprotein (LDL) cholesterol/high density lipoprotein (HOrdered By: Perry Perea on 05-14-2022 Cholesterol in LDL/Cholesterol in HDL [Mass ratio] 2.9 {ratio} [facility] Comment on above: MEN WOMEN1/2 Average Risk 1.00 1.47Average Risk 3.55 3.222X Average Risk 6.25 5.033X Average Risk 7.99 6.14 Serum or plasma sodium measu rement (moles/volume)Ordered By: Perry Perea on 05-14-2022 Sodium [Moles/Vol] 137 mmol/L 135-145 [facility] Serum or plasma thyroid stim ulating hormone (TSH) measurementOrdered By: Perry Perea on 05-14-2022 TSH Qn 1.97 uIU/mL 0.34-5.60 [facility] Serum or plasma triglyceride measurement (mass/volume)Ordered By: Perry Perea on 05-14-2022 Triglyceride [Mass/Vol] 187 mg/dL 41-189 [facility] Serum or plasma urea nitroge n measurement (mass/volume)Ordered By: Perry Perea on 05-14-2022 Urea nitrogen [Mass/Vol] 12 mg/dL 8-21 [facility] TSH SerPl-aCncon 05-14-2022 TSH Qn 1.97 uIU/mL Normal 0.34-5.60 [facility] ([place]) Comment on above: Performed By: #### L IPID, [id number], [id number] #### [facility] [address] [place] [address] Total protein bloodOrdered B y: Perry Perea on 05-14-2022 Protein [Mass/Vol] 6.5 g/dL 5.9-7.8 [facility] WBC Auto (Bld) [#/Vol]Ordere d By: Perry Perea on 05-14-2022 WBC (Bld) [#/Vol] 6.5 10*3/uL 4.5-11.0 [facility] LABORATORYOrdered By: Dorcas Torrez on 04-26-2021 Basophil, Absolute 0.10 103/mcL Invalid Interpretation Code 0.00 - 0.19 10^3/mcL AO Auto Heme SS Basophils/100 WBC (Bld) 1.2 % Invalid Interpretation Code 0.0 - 2.5 % AO Auto Heme SS Eosinophil, Absolute 0.10 103/mcL Invalid Interpretation Code 0.00 - 0.40 10^3/mcL AO Auto Heme SS Eosinophils/100 WBC (Bld) 1.6 % Invalid Interpretation Code 0.0 - 7.0 % AO Auto Heme SS Erythrocyte distribution width (RBC) [Ratio] 13.0 % Invalid Interpretation Code 11.5 - 14.5 % AO Auto Heme SS Hematocrit (Bld) [Volume fraction] 38.3 % Invalid Interpretation Code 37.0 - 47.0 % AO Auto Heme SS Hemoglobin (Bld) [Mass/Vol] 12.7 G/dL Invalid Interpretation Code 12.0 - 16.0 G/dL AO Auto Heme SS Lymphocyte, Absolute 2.30 103/mcL Invalid Interpretation Code 0.77 - 3.85 10^3/mcL AO Auto Heme SS Lymphocytes/100 WBC (Bld) 30.6 % Invalid Interpretation Code 10.0 - 50.0 % AO Auto Heme SS MCH (RBC) [Entitic mass] 28.3 pg Invalid Interpretation Code 27.0 - 31.2 pg AO Auto Heme SS MCHC (RBC) [Mass/Vol] 33.2 G/dL Invalid Interpretation Code 33.0 - 37.0 G/dL AO Auto Heme SS MCV (RBC) [Entitic vol] 85.2 fL Invalid Interpretation Code 80.0 - 94.0 fL AO Auto Heme SS Monocyte, Absolute 0.60 103/mcL Invalid Interpretation Code 0.15 - 1.00 10^3/mcL AO Auto Heme SS Monocytes/100 WBC (Bld) 7.5 % Invalid Interpretation Code 1.7 - 13.0 % AO Auto Heme SS Neutrophil, Absolute 4.50 103/mcL Invalid Interpretation Code 2.85 - 6.16 10^3/mcL AO Auto Heme SS Neutrophils/100 WBC (Bld) 59.1 % Invalid Interpretation Code 37.0 - 80.0 % AO Auto Heme SS Platelet mean volume (Bld) [Entitic vol] 7.4 fL Invalid Interpretation Code 7.4 - 10.4 fL AO Auto Heme SS Platelets (Bld) [#/Vol] 369 103/mcL Invalid Interpretation Code 130 - 400 10^3/mcL AO Auto Heme SS RBC (Bld) [#/Vol] 4.49 106/mcL Invalid Interpretation Code 4.20 - 5.40 10^6/mcL AO Auto Heme SS WBC (Bld) [#/Vol] 7.60 103/mcL Invalid Interpretation Code 4.60 - 10.80 10^3/mcL AO Auto Heme SS LABORATORYOrdered By: Sully Anderson on 04-26-2021 HCG ( test) Ql Negative (04/26/21 2:29 PM) Invalid Interpretation Code AO Manual Urine SS test (u) int Not detected Invalid Interpretation Code AO Manual Urine SS US PELVIS NON OBon US PELVIS NON OB TRANSABDOMINAL AND TRANSVAGINAL ULTRASOUND OF THE PELVIS: Clinical Statement: Endometriosis after delivery. 5 weeks . Comparison: None FINDINGS: Transabdominal and transvaginal sonographic images were acquired. Uterus measures 10.5 x 4.8 x 6.5 cm. Large bilobed hyperechoic masslike lesion occupying the endometrial canal measuring about 6.5 x 2.6 x 2.8 cm. Small amount of surrounding fluid. Color Doppler evaluation demonstrates mild surrounding increased vascularity but no significant internal vascularity. The lesion extends from the fundus into the lower uterine segment. Right and left ovaries measure 2.1 x 1.4 x 1.6 cm and 2.8 x 1.3 x 1.5 cm in size respectively. Small follicles are noted within both ovaries. 9 mm nonshadowing hyperechoic focus within the right ovary, probably representing a small area of scarring. No free fluid. IMPRESSION: Large bilobed masslike lesion within the endometrial canal highly suspicious for retained products of conception. A confirmed fax report was forwarded to the office of the referring clinician at the time of interpretation. This report was electronically signed by Deangelo Bernard MD 04/26/2021 6:57 AM Reported By: DEANGELO BERNARD M.D. Signed By: DEANGELO BERNARD M.D. [facility] US TRANSVAGINALon 04-25-2021 US TRANSVAGINAL TRANSABDOMINAL AND TRANSVAGINAL ULTRASOUND OF THE PELVIS: Clinical Statement: Endometriosis after delivery. 5 weeks . Comparison: None FINDINGS: Transabdominal and transvaginal sonographic images were acquired. Uterus measures 10.5 x 4.8 x 6.5 cm. Large bilobed hyperechoic masslike lesion occupying the endometrial canal measuring about 6.5 x 2.6 x 2.8 cm. Small amount of surrounding fluid. Color Doppler evaluation demonstrates mild surrounding increased vascularity but no significant internal vascularity. The lesion extends from the fundus into the lower uterine segment. Right and left ovaries measure 2.1 x 1.4 x 1.6 cm and 2.8 x 1.3 x 1.5 cm in size respectively. Small follicles are noted within both ovaries. 9 mm nonshadowing hyperechoic focus within the right ovary, probably representing a small area of scarring. No free fluid. IMPRESSION: Large bilobed masslike lesion within the endometrial canal highly suspicious for retained products of conception. A confirmed fax report was forwarded to the office of the referring clinician at the time of interpretation. This report was electronically signed by Deangelo Bernard MD 04/26/2021 6:57 AM Reported By: DEANGELO BERNARD M.D. Signed By: DEANGELO BERNARD M.D. [facility] LABORATORYOrdered By: Dorcas Torrez on 03-22-2021 Hematocrit (Bld) [Volume fraction] 25.6 % Invalid Interpretation Code 37.0 - 47.0 % AO Auto Heme SS Hemoglobin (Bld) [Mass/Vol] 8.7 G/dL Invalid Interpretation Code 12.0 - 16.0 G/dL AO Auto Heme SS LABORATORYOrdered By: Sully Anderson on 03-20-2021 ABO/Rh Interp Positive Invalid Interpretation Code AO BB SS Antibody Screen Gel Negative ABSC (03/20/21 5:02 PM) Invalid Interpretation Code AO BB SS LABORATORYOrdered By: Fernando Rome on 03-20-2021 Basophil, Absolute 0.00 103/mcL Invalid Interpretation Code 0.00 - 0.19 10^3/mcL AO Auto Heme SS Basophils/100 WBC (Bld) 0.3 % Invalid Interpretation Code 0.0 - 2.5 % AO Auto Heme SS Eosinophil, Absolute 0.10 103/mcL Invalid Interpretation Code 0.00 - 0.40 10^3/mcL AO Auto Heme SS Eosinophils/100 WBC (Bld) 0.4 % Invalid Interpretation Code 0.0 - 7.0 % AO Auto Heme SS Erythrocyte distribution width (RBC) [Ratio] 13.3 % Invalid Interpretation Code 11.5 - 14.5 % AO Auto Heme SS Hematocrit (Bld) [Volume fraction] 33.4 % Invalid Interpretation Code 37.0 - 47.0 % AO Auto Heme SS Hemoglobin (Bld) [Mass/Vol] 11.3 G/dL Invalid Interpretation Code 12.0 - 16.0 G/dL AO Auto Heme SS Lymphocyte, Absolute 1.40 103/mcL Invalid Interpretation Code 0.77 - 3.85 10^3/mcL AO Auto Heme SS Lymphocytes/100 WBC (Bld) 9.6 % Invalid Interpretation Code 10.0 - 50.0 % AO Auto Heme SS MCH (RBC) [Entitic mass] 29.0 pg Invalid Interpretation Code 27.0 - 31.2 pg AO Auto Heme SS MCHC (RBC) [Mass/Vol] 33.8 G/dL Invalid Interpretation Code 33.0 - 37.0 G/dL AO Auto Heme SS MCV (RBC) [Entitic vol] 85.9 fL Invalid Interpretation Code 80.0 - 94.0 fL AO Auto Heme SS Monocyte, Absolute 1.10 103/mcL Invalid Interpretation Code 0.15 - 1.00 10^3/mcL AO Auto Heme SS Monocytes/100 WBC (Bld) 7.4 % Invalid Interpretation Code 1.7 - 13.0 % AO Auto Heme SS Neutrophil, Absolute 12.00 103/mcL Invalid Interpretation Code 2.85 - 6.16 10^3/mcL AO Auto Heme SS Neutrophils/100 WBC (Bld) 82.3 % Invalid Interpretation Code 37.0 - 80.0 % AO Auto Heme SS Platelet mean volume (Bld) [Entitic vol] 7.4 fL Invalid Interpretation Code 7.4 - 10.4 fL AO Auto Heme SS Platelets (Bld) [#/Vol] 298 103/mcL Invalid Interpretation Code 130 - 400 10^3/mcL AO Auto Heme SS RBC (Bld) [#/Vol] 3.89 106/mcL Invalid Interpretation Code 4.20 - 5.40 10^6/mcL AO Auto Heme SS WBC (Bld) [#/Vol] 14.60 103/mcL Invalid Interpretation Code 4.60 - 10.80 10^3/mcL AO Auto Heme SS CULTURE URINEon 11-07-2020 CULTURE URINE CULTURE URINE --> Status: F Normal urogenital derrick present. 1 Organism Enterococcus faecalis 10,000-50,000 CFU/ml 1 Organism Antibiotic Result Intrp Ampicillin(SALAS) <= 2 S Vancomycin(SALAS) 1 S Nitrofurantoin(SALAS) <= 16 S Gentamicin High Level synergy(SALAS) SYN-S S Streptomycin High Level synergy(SALAS)SYN-S S Tigecycline(SALAS) <= 0.12 S Normal [facility] Comment on above: Performed By: #### C /UR #### [address] #### CUA2 #### [address] Complete Urinalysison 2020 Appearance (U) Clear Normal Clear [facility] Comment on above: Result Comment: . Performed By: #### C /UR #### [address] #### CUA2 #### [address] Bacteria Moderate Abnormal Negative [facility] Comment on above: Result Comment: . Performed By: #### C /UR #### [address] [facility] [address] [facility], [place] #### CUA2 #### [facility] [address] [place], [place] Bilirubin,Urine Negative Normal Negative [facility] Comment on above: Result Comment: . Performed By: #### C /UR #### [facility] [address] [place], [place] [facility] [address] [facility], [place] #### CUA2 #### [facility] [address] [place], [place] Cast, Hyaline Negative Normal Negative [facility] Comment on above: Result Comment: . Performed By: #### C /UR #### [facility] [address] [facility], [place] [facility] [address] [place], [place] #### CUA2 #### [facility] [address] [place], [place] Color (U) Light-Yellow Normal Lt. Yellow [facility] Comment on above: Result Comment: . Performed By: #### C /UR #### [facility] [address] [place] [facility] [address] [place] #### CUA2 #### [facility] [address] [place], [place] Glucose Ql (U) Normal Normal Normal (<70) [facility] Comment on above: Result Comment: . Performed By: #### C /UR #### [facility] [address] [facility], [place] [facility] [address] [place], [place] #### CUA2 #### [facility] [address] [place] Ketone,Urine Negative Normal Negative [facility] Comment on above: Result Comment: . Performed By: #### C /UR #### [facility] [address] [facility], [place] [facility] [address] [facility], [place] #### CUA2 #### [facility] [address] [facility], [place] Leukocytes,Urine 25 Marleni/uL Abnormal Negative [facility] Comment on above: Result Comment: . Performed By: #### C /UR #### [facility] [address] [place] [facility] [address] [facility], [place] #### CUA2 #### [facility] [address] [place], [place] Mucous Threads Few Normal Negative [facility] Comment on above: Result Comment: . Performed By: #### C /UR #### [facility] [address] [facility], [place] [facility] [address] [place] #### CUA2 #### [facility] [address] [place] Nitrites,Urine Negative Normal Negative [facility] Comment on above: Result Comment: . Performed By: #### C /UR #### [facility] [address] [facility], [place] [facility] [address] [facility], [place] #### CUA2 #### [facility] [address] [place] Occult Blood,Urine Negative Normal Negative [facility] Comment on above: Result Comment: . Performed By: #### C /UR #### [facility] [address] [place] [facility] [address] [place] #### CUA2 #### [facility] [address] [place], [place] pH,Urine 6.5 Normal 5.0-8.0 [facility] Comment on above: Result Comment: . Performed By: #### C /UR #### [facility] [address] [place] [facility] [address] [place] #### CUA2 #### [facility] [address] [facility] [address] RBC, Urine 0 - 2 Normal 0-2 [facility] Comment on above: Result Comment: . Performed By: #### C /UR #### [facility] [address] [facility], [place] [facility] [address] [facility], [place] #### CUA2 #### [facility] [address] [facility] [place] Specific [place],Urine 1.015 Normal 1.005 - 1.030 [facility] Comment on above: Result Comment: . Performed By: #### C /UR #### [facility] [address] [facility] [place] [facility] [address] [facility] [place] #### CUA2 #### [facility] [address] [facility] [place] Squamous Epithelial 0 - 2 Normal 3-5 [facility] Comment on above: Result Comment: . Performed By: #### C /UR #### [facility] [address] [facility] [place] [facility] [address] [facility] [place] #### CUA2 #### [facility] [address] [facility] [place] Total Protein,Urine Negative Normal Negative [facility] Comment on above: Result Comment: . Performed By: #### C /UR #### [facility] [address] [facility], [place] [facility] [address] [facility], [place] #### CUA2 #### [facility] [address] [facility] [place] Urobilinogen,Urine Normal Normal Normal (0-1) [facility] Comment on above: Result Comment: . Performed By: #### C /UR #### [facility] [address] [facility], [place] [facility] [address] [place] #### CUA2 #### [facility] [address] [place] [address] WBC, Urine 0 - 2 Normal 0-5 [facility] Comment on above: Result Comment: . Performed By: #### C /UR #### [facility] [address] [place] [address] [facility] [address] [place], [place] #### CUA2 #### [facility] [address] [place] [address] Yeast Moderate Abnormal Negative [facility] Comment on above: Result Comment: . Performed By: #### C /UR #### [facility] [address] [place] [address] [facility] [address] [place], [place] #### CUA2 #### [facility] [address] [place], [place] UrinalysisOrdered By: Aisha Desai on 11-04-2020 Appearance (U) Clear Clear NA [facility] Work Phone: Comment on above: . Bacteria, UA Moderate Abnormal Negative /[HPF] [facility] Work Phone: Comment on above: . Bilirubin Urine Negative Negative mg/dL [facility] Work Phone: Comment on above: . Color (U) Light-Yellow Lt. Yellow NA [facility] Work Phone: Comment on above: . Glucose, Ur Normal Normal (<70) mg/dL [facility] Work Phone: Comment on above: . Hyaline Casts, UA Negative Negative /[LPF] [facility] Work Phone: Comment on above: . Interpretation and review of laboratory results Abnormal [facility] Work Phone: Ketones Ql (U) Negative Negative mg/dL [facility] Work Phone: Comment on above: . LEUKOCYTES, UA 25 Abnormal Negative Marleni/uL [facility] Work Phone: Comment on above: . Mucous Threads Few Negative /[LPF] [facility] Work Phone: Comment on above: . Nitrite, Urine Negative Negative NA [facility] Work Phone: [phone] Comment on above: . Occult Blood,Urine Negative Negative mg/dL [facility] Work Phone: [phone] Comment on above: . pH (U) 6.5 [pH] [facility] Work Phone: [phone] Comment on above: . RBC, UA 0-2 0 - 2 /[HPF] [facility] Work Phone: [phone] Comment on above: . Specific [place], Urine 1.015 [facility] Work Phone: [phone] Comment on above: . Squam Epithel, UA 0-2 3 - 5 /[HPF] [facility] Work Phone: [phone] Comment on above: . Total Protein, Urine Negative Negativ e mg/dL [facility] Work Phone: [phone] Comment on above: . Urobilinogen, Urine Normal Normal ( 0-1) mg/dL [facility] Work Phone: [phone] Comment on above: . WBC, UA 0-2 0 - 5 /[HPF] [facility] Work Phone: [phone] Comment on above: . Yeast, Urine Moderate Abnormal Negative /[HPF] [facility] Work Phone: [phone] Comment on above: . Test Performed by [facility], [address] [place] [id number] [facility] Work Phone: [phone] [facility] Work Phone: [phone] Chlamydia and GC PCR Panelon 10-24-2020 Chlamydia and GC PCR Panel Chlamydia trachomatis PCR --> Status: F NOT Detected Chlamydia trachomatis Nucleic Acid NOT Detected by DNA Amplification using the Tee[employer]by[employer] System. Culture is the only recommended test in medical-legal cases such as suspected child abuse or molestation. Chlamydia trachomatis Nucleic Acid NOT Detected by DNA Amplification using the Cepheid System. Culture is the only recommended test in medical-legal cases such as suspected child abuse or molestation. Neisseria gonorrhoeae PCR --> Status: F NOT Detected Neisseria gonorrhoeae Nucleic Acid NOT Detected by DNA Amplification using the [employer] System. Culture is the only recommended test in medical-legal cases such as suspected child abuse or molestation. Neisseria gonorrhoeae Nucleic Acid NOT Detected by DNA Amplification using the [employer] System. Culture is the only recommended test in medical-legal cases such as suspected child abuse or molestation. Normal [facility] Comment on above: Performed By: #### C TNGP #### [place] [address] [address] [place], [place] Complete Urinalysison 2020 Appearance (U) Clear Normal Clear [facility] Comment on above: Result Comment: . Performed By: #### C UA2 #### [place] [address] [address] [place], [place] Bacteria Few Abnormal Negative [facility] Comment on above: Result Comment: . Performed By: #### C UA2 #### [place] [address] [address] [place], [place] Bilirubin,Urine Negative Normal Negative [facility] Comment on above: Result Comment: . Performed By: #### C UA2 #### [place] [address] [address] [place], [place] Color (U) Light-Yellow Normal Lt. Yellow [facility] Comment on above: Result Comment: . Performed By: #### C UA2 #### [place] [address] [address] [place], [place] Glucose Ql (U) Normal Normal Normal (<70) [facility] Comment on above: Result Comment: . Performed By: #### C UA2 #### [place] [address] [address] [place], [place] Ketone,Urine Negative Normal Negative [facility] Comment on above: Result Comment: . Performed By: #### C UA2 #### [place] [address] [address] [place], [place] Leukocytes,Urine 25 Marleni/uL Abnormal Negative [facility] Comment on above: Result Comment: . Performed By: #### C UA2 #### [place] [address] [address] [place], [place] Mucous Threads Few Normal Negative [facility] Comment on above: Result Comment: . Performed By: #### C UA2 #### [facility] [address] [place], [place] Nitrites,Urine Negative Normal Negative [facility] Comment on above: Result Comment: . Performed By: #### C UA2 #### [facility] [address] [place], [place] Occult Blood,Urine Negative Normal Negative [facility] Comment on above: Result Comment: . Performed By: #### C UA2 #### [place] [address] [address] [place], [place] pH,Urine 6.5 Normal 5.0-8.0 [facility] Comment on above: Result Comment: . Performed By: #### C UA2 #### [place] [address] [address] [place], [place] RBC, Urine 0 - 2 Normal 0-2 [facility] Comment on above: Result Comment: . Performed By: #### C UA2 #### [place] [address] [address] [place], [place] Specific [place],Urine < 1.005 Abnormal 1.005 - 1.030 [facility] Comment on above: Result Comment: . Performed By: #### C UA2 #### [place] [address] [address] [place], [place] Squamous Epithelial 0 - 2 Normal 3-5 [facility] Comment on above: Result Comment: . Performed By: #### C UA2 #### [place] [address] [address] [place], [place] Total Protein,Urine Negative Normal Negative [facility] Comment on above: Result Comment: . Performed By: #### C UA2 #### [place] [address] [address] [place], [place] Urobilinogen,Urine Normal Normal Normal (0-1) [facility] Comment on above: Result Comment: . Performed By: #### C UA2 #### [place] [address] [address] [place], [place] WBC, Urine 0 - 2 Normal 0-5 [facility] Comment on above: Result Comment: . Performed By: #### C UA2 #### [facility] [address] [place] [address] Trichomonas vaginalis PCRon 10-24-2020 Trichomonas vaginalis PCR Trichomonas vaginalis PCR --> Status: F NOT Detected Reference Interval: Not Detected Method: Real-time PCR. Negative results do not completely rule out infection with Trichomonas vaginalis. Reference Interval: Not Detected Method: Real-time PCR. Negative results do not completely rule out infection with Trichomonas vaginalis. Normal [facility] Comment on above: Performed By: #### T VPCR #### [facility] [address] [place] [address] [place] Limited 1 or Mo re Fetuseson 10-13-2020 US Limited 1 or More Fetuses Patient Name: SELENE LARKIN Ultrasound ACCESSION EXAM DATE/TIME PROCEDURE ORDERING PROVIDER [id number] 10/13/2020 14:00 EDT US Limited MD LEHMAN JENNIFER E CPT code 79406 Reason For Exam (US Limited) O46.92 Second Trimester Bleeding Report Indication: Vaginal bleeding. Transvaginal images of the pelvis. Images show a single live intrauterine gestation of 15 weeks three days based on composite measurements of biparietal diameter, head circumference, abdominal circumference, and femur length. cardiac motion shown at a rate of 148 beats per minutes. Placenta is anterior in position with the inferior well above the internal os. The cervix is closed and measures 4.6 cm in length. No placenta abruption. Normal amount of amniotic fluid. Evaluation of anatomical structures limited by the young age. IMPRESSION: Single live intrauterine gestation of 15 weeks three days based on composite measurements. Anterior placenta. No previa or abruption. Report Dictated on Final Dictating Physician: MD GERARDO LAURA Signed Date and Time: 10/17/2020 10:34 am Signed by: MD GERARDO LAURA Transcribed Date and Time: 10/17/2020 10:35 Normal [facility] US Transvaginalon 09-02-2020 US Transvaginal Patient Name: SELENE LARKINN: [id number] Ultrasound ACCESSION EXAM DATE/TIME PROCEDURE ORDERING PROVIDER [id number] 09/02/2020 10:41 EDT US MD DAWNA, CAYLA Saenz Transvaginal CPT code 75580 Reason For Exam (US Transvaginal) o36.80X0 VIABILITY Report Pelvic ultrasound: 09/02/2020. CLINICAL INFORMATION: Positive test. FINDINGS: Sonographic examination of the pelvis was performed transvaginally only. The uterus is mildly enlarged measuring approximately 11.6 x 9.1 x 7.2 cm. Within the uterus is a gestational sac containing a pole and yolk sac. Based on mean sac diameter of 4.7 cm, the mean gestational age is 10 weeks, 2 days plus or minus the standard deviation. The crown-rump length measures a composite of 2.8 cm corresponding to a mean gestational age of 9 weeks, 4 days plus or minus the standard deviation. heart rate identified at 171 bpm. The cervix was closed at the time of examination. Both ovaries were identified and are within normal limits in size. The right ovary measures approximately 2.8 x 3.1 x 2.3 cm. The left ovary measures approximately 2.3 x 1.9 x 2.1 cm. No free pelvic fluid or cystic pelvic masses are seen. IMPRESSION: Single live intrauterine gestation with a mean gestational age of 9 weeks, 4 days plus or minus the standard deviation. Report Dictated on Final Dictating Physician: MD ZIMMER RISA Signed Date and Time: 09/04/2020 10:24 am Signed by: MD ZIMMER RISA Transcribed Date and Time: 09/04/2020 10:25 Normal [facility] B-HCG SerPl-[place] 1 [place] [address].0 m[IU]/mL High 0.0-6.0 [facility] Comment on above: Order Comment: Speci men Type: BLOOD SPECIMEN Result Comment: Preg nant female - gestational age 0-2 weeks 5-50 1-2 weeks 50-500 2-3 weeks 100-5000 3-4 weeks 500-52943 4-5 weeks 1000-15127 5-6 weeks 79626-042235 6-8 weeks [id number] 2-3 months [id number] QUANTITATIVE HCG NORMAL RANGES Weeks of Gestation (Weeks Since LMP) 3 Weeks (5.8-71.2 mIU/mL) 4 Weeks (9.5-750 mIU/mL) 5 Weeks (217-7138 mIU/mL) 6 Weeks (158-11263 mIU/mL) 7 Weeks (3697-638913 mIU/mL) 8 Weeks (62891-943631 mIU/mL) 9 Weeks (15120-423347 mIU/mL) 10 Weeks (46621-987754 mIU/mL) 12 Weeks (06619-348427 mIU/mL) Referenced to 4th IS of [facility] Performed By: #### 2 1198-7 #### [facility] CLIA [id number] [facility] [place] [address] Bacteria Ur Culton 1 Bacteria identified Cx Nom (U) CULTURE, URINE: No growth (<1,000 CFU/ml) Normal [facility] Comment on above: Performed By: #### 6 30-4 #### [facility] CLIA [id number] [address] [place] [address] ED NOTEon 08-11-2020 ED NOTE HNO ID: [id number] Author: Trevor (Rn) GERRI Corbin Service: Emergency Medicine Author Type: Registered Nurse Type: ED Notes Filed: 08/11/2020 6:51 PM Note Text: Pt c/o rectal pain, described as pulling rubberband between rectum and vagina. Constipated for past week. Tried Metamucil and Miralax with minimal relief. Passed hard, dry stool today. Normal [facility] ED PROV NOTEon 08-11-2020 ED PROV NOTE HNO ID: [id number] Author: Ramirez Fish MD Service: Emergency Medicine Author Type: Physician Type: ED Provider Notes Filed: 08/11/2020 8:08 PM Note Text: ED Provider Note Patient Name: Selene Larkin SERVICE DATE: 08/11/20 History Patient presents with: Constipation HPI 25-year-old female presented emergency department for evaluation of constipation and rectal discomfort. She states that her last menstrual period was late May / early June but unsure of the exact date. She was seen at [facility] on 07/31 - reported her LMP was 07/12/20 and had a quantitative hCG drawn which was 2149. Currently breast feeding 8 month old at home and on vitals. Has not had ultrasound to confirm and has not established with OB. She reports passing small hard stools within the past week, was able to have a bowel movement today but it was small, hard. No black tarry stools or blood. She denies vaginal pain, vaginal bleeding or vaginal discharge. Denies abdominal pain or discomfort. Has tried 2 doses of MiraLAX without relief of her symptoms. She reports urinary frequency without dysuria or hematuria. No past medical history on file. No past surgical history on file. No family history on file. Social History Tobacco Use - Smoking status: Not on file Substance and Sexual Activity - Alcohol use: Not on file - Drug use: Not on file - Sexual activity: Not on file ALLERGIES Not on File Review of Systems Constitutional: Negative for chills, fatigue and fever. HENT: Negative for congestion and sore throat. Respiratory: Negative for cough and shortness of breath. Cardiovascular: Negative for chest pain and palpitations. Gastrointestinal: Positive for constipation. Negative for abdominal pain, anal bleeding, blood in stool, diarrhea, nausea and vomiting. Genitourinary: Positive for frequency. Negative for decreased urine volume, difficulty urinating, dysuria, flank pain, hematuria, vaginal bleeding, vaginal discharge and vaginal pain. LMP late May 2020 - Jun 2020. Unsure of exact date Musculoskeletal: Negative for back pain and neck pain. Skin: Negative for color change, rash and wound. Neurological: Negative for dizziness, weakness and headaches. Hematological: Negative for adenopathy. Does not bruise/bleed easily. Physical Exam BP 116/73 Pulse 75 Temp 98.6 Resp 16 Ht 5' 3 (1.60m) Wt 150 lb (68.0kg) SpO2 100% LMP 06/18/2020 BMI 26.58 kg/(m2). Physical Exam Vitals and nursing note reviewed. Constitutional: General: She is not in acute distress. Appearance: She is not toxic-appearing. HENT: Head: Normocephalic and atraumatic. Mouth/Throat: Mouth: Mucous membranes are moist. Pharynx: Oropharynx is clear. Eyes: General: No scleral icterus. Conjunctiva/sclera: Conjunctivae normal. Cardiovascular: Rate and Rhythm: Normal rate and regular rhythm. Pulses: Normal pulses. Pulmonary: Effort: Pulmonary effort is normal. Breath sounds: Normal breath sounds. Abdominal: General: There is no distension. Palpations: Abdomen is soft. Tenderness: There is no abdominal tenderness. Comments: No tenderness in right upper quadrant. Negative for tenderness at McBurney's point Skin: General: Skin is warm and dry. Capillary Refill: Capillary refill takes less than 2 seconds. Neurological: General: No focal deficit present. Mental Status: She is alert and oriented to person, place, and time. Motor: No weakness. 08/11/20 1846 08/11/20 184 BP: 116/73 Pulse: 75 Resp: 16 Temp: 37 ?C (98.6 ?F) SpO2: 100% Weight: 68 kg (150 lb) Height: 160 cm (5' 3) Diagnostic Testing ED Labs Ordered and Reviewed URINALYSIS, WITH MICROSCOPIC - Abnormal; Notable for the following components: Result Value Ref Range Bacteria Few (*) None Seen /HPF All other components within normal limits URINE CULTURE Procedures ED Course / Clinical Impression 25-year-old female present in the emergency department for evaluation of constipation. LMP ~ 8 weeks ago but unknown exact dates. Has had quantitative hCG on 07/31 which was in the low 1999s but has not established with OB. Bedside ultrasound with transverse and sagittal views confirmed an intrauterine with cardiac activity noted. Given her urinary frequency a urinalysis was sent which showed few bacteria, as she is we will send for culture and treat with Keflex 4 times daily for 5 days. She has reported allergy to penicillin and states that she had arm swelling when she received this in the past. I suspect this is not a true allergy as she had no rash, angioedema and was localized swelling from intramuscular injection and am comfortable prescribed keflex given limited options in . In regards to constipation I do not think that advanced imaging is indicated at this point in time and radiation exposure to the fetus outweighs any potential benefit. Abdominal exam is benign without tenderness at McBurney's point and suspicion for an acute abdominal pathology is low. Given a one-time dose of magnesium citrate and instructed to start MiraLAX 2 times a day. She was also instructed to increase fiber and water intake. At this point time she is stable for discharge and outpatient follow-up. Given referral information to [facility] women's clinic to establish care. She was instructed to continue taking vitamins as prescribed. Limited Trans-Abdominal and/or Endovaginal Pelvic Ultrasound for IUP Indication: Patient has a suspected with abdominal and/or vaginal complaints Procedure in detail Pelvic Images ? Using Curvilinear probe(s), longitudinal and transverse views revealing ? Within the uterus a Gestational Sac identified ? Within the uterus a Yolk Sac identified A Pole was: Present ? Cardiac Activity was: identified ? Heart Rate was not measured ? Still images or video images were saved for this of this exam: Yes ? A radiology performed ultrasound study was ordered: NoC Ultrasound ? These ultrasound images show Positive evidence of IUP. ? Additional Findings: na This limited imaging study was performed by: Attending only. Clinical Impressions as of Aug 12 1955 Constipation, unspecified constipation type Asymptomatic bacteriuria during MDM / Disposition / Plan MDM The patient was DISCHARGED: Counseled patient regarding radiology results AND suspected diagnosis AND need for follow-up. Discharged home with verbal and written instructions. They were instructed to return as needed for persistent or worsening symptoms or any new concerns. Condition at time of disposition: stable SIGNATURE: MD Ramirez Nation MD 08/11/202007 Normal [facility] Urinalysis complete pnl Uron 08-11-2020 Bacteria LM.HPF (Urine sed) [#/Area] Few Abnormal None Seen [facility] Comment on above: Order Comment: Speci men Type: URINE SPECIMEN Performed By: #### 2 4356-8 #### [facility] CLIA [id number] [address] [place] [address] Bilirubin Ql (U) Negative Normal Negative [facility] Comment on above: Order Comment: Speci men Type: URINE SPECIMEN Performed By: #### 2 4356-8 #### [facility] CLIA [id number] [address] [place] [address] Clarity (Unsp spec) Clear Normal Clear [facility] Comment on above: Order Comment: Speci men Type: URINE SPECIMEN Performed By: #### 2 4356-8 #### [facility] CLIA [id number] [address] [place] [address] Color (U) Yellow Normal Yellow [facility] Comment on above: Order Comment: Speci men Type: URINE SPECIMEN Performed By: #### 2 4356-8 #### [facility] CLIA [id number] [address] [place] [address] Epithelial cells LM.HPF (Urine sed) [#/Area] Few Normal [facility] Comment on above: Order Comment: Speci men Type: URINE SPECIMEN Performed By: #### 2 4356-8 #### [facility] CLIA [id number] [address] [place] [address] Glucose Test strip (U) [Mass/Vol] Negative Normal Negative [facility] Comment on above: Order Comment: Speci men Type: URINE SPECIMEN Performed By: #### 2 4356-8 #### [facility] CLIA [id number] [address] [place] [address] Hemoglobin Ql (U) Negative Normal Negative [facility] Comment on above: Order Comment: Speci men Type: URINE SPECIMEN Performed By: #### 2 4356-8 #### [facility] CLIA [id number] [address] [place] [address] Ketones Ql (U) Negative Normal Negative [facility] Comment on above: Order Comment: Speci men Type: URINE SPECIMEN Performed By: #### 2 4356-8 #### [facility] CLIA [id number] [address] [place] [address] Leukocyte esterase Test strip Ql (U) Negative Normal Negative [facility] Comment on above: Order Comment: Speci men Type: URINE SPECIMEN Performed By: #### 2 4356-8 #### [facility] CLIA [id number] [address] [place] [address] Nitrite Ql (U) Negative Normal Negative [facility] Comment on above: Order Comment: Speci men Type: URINE SPECIMEN Performed By: #### 2 4356-8 #### [facility] CLIA [id number] [address] [place] [address] pH (U) 6.0 [pH] Normal 5.0-8.0 [facility] Comment on above: Order Comment: Speci men Type: URINE SPECIMEN Performed By: #### 2 4356-8 #### [facility] CLIA [id number] [address] [place] [address] Protein (U) [Mass/Vol] Negative Normal Negative [facility] Comment on above: Order Comment: Speci men Type: URINE SPECIMEN Performed By: #### 2 4356-8 #### [facility] CLIA [id number] [address] [place] [address] RBC LM.HPF (Urine sed) [#/Area] 0-3 /HPF Normal 0-3 /HPF [facility] Comment on above: Order Comment: Speci men Type: URINE SPECIMEN Performed By: #### 2 4356-8 #### [facility] CLIA [id number] [address] [place] [address] Specific gravity (U) [Rel density] 1.015 Normal 1.005-1.030 [facility] Comment on above: Order Comment: Speci men Type: URINE SPECIMEN Performed By: #### 2 4356-8 #### [facility] CLIA [id number] [address] [place] [address] Urobilinogen Test strip Ql (U) 0.2 EU/dL Normal 0.2-1.0 EU/dL [facility] Comment on above: Order Comment: Speci men Type: URINE SPECIMEN Performed By: #### 2 4356-8 #### [facility] CLIA [id number] [address] [place] [address] WBC LM.HPF (Urine sed) [#/Area] 0-5 /HPF Normal 0-5 /HPF [facility] Comment on above: Order Comment: Speci men Type: URINE SPECIMEN Performed By: #### 2 4356-8 #### [facility] CLIA [id number] [address] [place] [address] Comp Metabolic Panelon 07-28 ALP [Catalytic activity/Vol] 49 U/L Normal 38-126 [facility] Comment on above: Performed By: #### Q WNT4, CMP3, LIPA4, HEMDF #### [facility] [address] [place] [address] ALT [Catalytic activity/Vol] 11 U/L Normal 0-34 [facility] Comment on above: Result Comment: The ALT test is performed by an updated assay method. Please note that the reference intervals have been changed and are now sex specific. Performed By: #### Q WNT4, CMP3, LIPA4, HEMDF #### [facility] [address] [place] [address] Calcium [Mass/Vol] 8.9 mg/dL Normal 8.4-10.4 [facility] Comment on above: Performed By: #### Q WNT4, CMP3, LIPA4, HEMDF #### [facility] [address] [place] [address] Glucose [Mass/Vol] 95 mg/dL Normal 70-100 [facility] Comment on above: Performed By: #### Q WNT4, CMP3, LIPA4, HEMDF #### [facility] [address] [place] [address] Urea nitrogen [Mass/Vol] 9 mg/dL Normal 7-20 [facility] Comment on above: Performed By: #### Q WNT4, CMP3, LIPA4, HEMDF #### [facility] [address] [place] [address] Anion gap [Moles/Vol] 6 mmol/L Normal 3-13 [facility] Comment on above: Performed By: #### Q WNT4, CMP3, LIPA4, HEMDF #### [facility] [address] [place] [address] AST [Catalytic activity/Vol] 23 U/L Normal 15-46 [facility] Comment on above: Performed By: #### Q WNT4, CMP3, LIPA4, HEMDF #### [facility] [address] [place] [address] Bilirubin [Mass/Vol] 0.5 mg/dL Normal 0.2-1.3 [facility] Comment on above: Performed By: #### Q WNT4, CMP3, LIPA4, HEMDF #### [facility] [address] [place] [address] CO2 [Moles/Vol] 24 mmol/L Normal 22-30 [facility] Comment on above: Performed By: #### Q WNT4, CMP3, LIPA4, HEMDF #### [address] [place] [address] [place] [address] Creatinine [Mass/Vol] 0.68 mg/dL Normal 0.52-1.25 [facility] Comment on above: Performed By: #### Q WNT4, CMP3, LIPA4, HEMDF #### [address] [address] [place] [address] eGFR OTHER > 90.0 Normal >60 [facility] Comment on above: Result Comment: KDIG O guidelines provide the following GFR categories: Stage GFR(ml/min/1.73 m2) Terms G1 >=90 Normal or high G2 60-89 Mildly decreased* G3a 45-59 Mildly to moderately decreased G3b 30-44 Moderately to severely decreased G4 15-29 Severely decreased G5 <15 Kidney failure *Relative to young adult level. In the absence of evidence of kidney damage, neither GFR category G1 nor G2 fulfill the criteria for CKD. The CKD-EPI equation is validated in individuals 18 years of age and older. Currently the best equation for estimating glomerular filtration rate (GFR) from serum creatinine in children is the Bedside Lentz equation. It is less accurate in patients with extremes of muscle mass, restriction of dietary protein, ingestion of creatine, extra-renal metabolism of creatinine, or treatment with medications that affect renal tubular creatinine secretion. Performed By: #### Q WNT4, CMP3, LIPA4, HEMDF #### [facility] [address] [place] [address] GFR/1.73 sq M.predicted among blacks MDRD (S/P/Bld) [Vol rate/Area] mL/min/{1.73_m2} Normal >60 [facility] Comment on above: Performed By: #### Q WNT4, CMP3, LIPA4, HEMDF #### [address] [address] [place] [address] Protein [Mass/Vol] 7.1 g/dL Normal 6.3-8.2 [facility] Comment on above: Performed By: #### Q WNT4, CMP3, LIPA4, HEMDF #### [address] [address] [place] [address] Chloride [Moles/Vol] 107 mmol/L Normal 98-107 [facility] Comment on above: Performed By: #### Q WNT4, CMP3, LIPA4, HEMDF #### [address] [place] [address] [place] [address] Potassium [Moles/Vol] 3.3 mmol/L Low 3.5-5.1 [facility] Comment on above: Performed By: #### Q WNT4, CMP3, LIPA4, HEMDF #### [address] [address] [place] [address] Sodium [Moles/Vol] 138 mmol/L Normal 135-145 [facility] Comment on above: Performed By: #### Q WNT4, CMP3, LIPA4, HEMDF #### [address] [address] [place] [address] Albumin [Mass/Vol] 4.1 g/dL Normal 3.5-5.0 [facility] Comment on above: Performed By: #### Q WNT4, CMP3, LIPA4, HEMDF #### [address] [address] [place] [address] Complete Urinalysison 2020 Bacteria Many (51-100) Abnormal Negative [facility] Comment on above: Result Comment: . Performed By: #### C UA2 #### [address] [address] RBC LM.HPF (Urine sed) [#/Area] Negative Normal 0-2 [facility] Comment on above: Result Comment: . Performed By: #### C UA2 #### [address] [address] [place] [address] Squamous Epithelial 11 - 15 Abnormal 3-5 [facility] Comment on above: Result Comment: . Performed By: #### C UA2 #### [address] [address] VOLUME, URINE .12 ml Normal [facility] Comment on above: Result Comment: . Performed By: #### C UA2 #### [address] [address] WBC, Urine 0 - 2 Normal 0-5 [facility] Comment on above: Result Comment: . Performed By: #### C UA2 #### [address] [address] Appearance (U) Clear Normal Clear [facility] Comment on above: Result Comment: . Performed By: #### C UA2 #### [address] [address] Bilirubin,Urine Negative Normal Negative [facility] Comment on above: Result Comment: . Performed By: #### C UA2 #### [address] [address] Color (U) YELLOW Normal Lt. Yellow [facility] Comment on above: Result Comment: . Performed By: #### C UA2 #### [address] [address] Glucose Ql (U) Normal Normal Normal (<70) [facility] Comment on above: Result Comment: . Performed By: #### C UA2 #### [address] [address] Ketone,Urine Negative Normal Negative [facility] Comment on above: Result Comment: . Performed By: #### C UA2 #### [address] [address] Leukocytes,Urine 25 Marleni/uL Abnormal Negative [facility] Comment on above: Result Comment: . Performed By: #### C UA2 #### [id number] [place] [address] Nitrites,Urine Negative Normal Negative [facility] Comment on above: Result Comment: . Performed By: #### C UA2 #### [id number] [place] [address] Occult Blood,Urine Negative Normal Negative [facility] Comment on above: Result Comment: . Performed By: #### C UA2 #### [address] [address] pH,Urine 6.0 Normal 5.0-8.0 [facility] Comment on above: Result Comment: . Performed By: #### C UA2 #### [address] [address] Protein (U) [Mass/Vol] 10 mg/dL Abnormal Negative [facility] Comment on above: Result Comment: . Performed By: #### C UA2 #### [address] [address] Specific [place],Urine 1.025 Normal 1.005 - 1.030 [facility] Comment on above: Result Comment: . Performed By: #### C UA2 #### [address] [address] Urobilinogen,Urine Normal Normal Normal (0-1) [facility] Comment on above: Result Comment: . Performed By: #### C UA2 #### [address] [address] Comprehensive Metabolic Pane masood 07-28-2020 Albumin [Mass/Vol] 4.1 g/dL 3.5 - 5.0 g/dL [facility] Work Phone: ALP [Catalytic activity/Vol] 49 U/L 38 - 126 U/L [facility] Work Phone: ALT [Catalytic activity/Vol] 11 U/L 0 - 34 U/L [facility] Work Phone: Comment on above: The ALT test is perf ormed by an updated assay method. Please note that the reference intervals have been changed and are now sex specific. Anion gap [Moles/Vol] 6 mmol/L 3 - 13 mmol/L [facility] Work Phone: AST [Catalytic activity/Vol] 23 U/L 15 - 46 U/L [facility] Work Phone: Bilirubin Ql (U) 0.5 mg/dL 0.2 - 1.3 mg/dL [facility] Work Phone: Calcium [Mass/Vol] 8.9 mg/dL 8.4 - 10. 4 mg/dL [facility] Work Phone: Chloride [Moles/Vol] 107 mmol/L 98 - 10 7 mmol/L [facility] Work Phone: CO2 [Moles/Vol] 24 mmol/L 22 - 30 mmol/L [facility] Work Phone: Creatinine [Mass/Vol] 0.68 mg/dL 0.52 - 1.25 mg/dL [facility] Work Phone: EGFR IF NonAfrican Mosotho >90.0 >60 mL/min [facility] Work Phone: Comment on above: KDIGO guidelines pro vide the following GFR categories: Stage GFR(ml/min/1.73 m2) Terms G1 >=90 Normal or high G2 60-89 Mildly decreased* G3a 45-59 Mildly to moderately decreased G3b 30-44 Moderately to severely decreased G4 15-29 Severely decreased G5 <15 Kidney failure *Relative to young adult level. In the absence of evidence of kidney damage, neither GFR category G1 nor G2 fulfill the criteria for CKD. The CKD-EPI equation is validated in individuals 18 years of age and older. Currently the best equation for estimating glomerular filtration rate (GFR) from serum creatinine in children is the Bedside Lentz equation. It is less accurate in patients with extremes of muscle mass, restriction of dietary protein, ingestion of creatine, extra-renal metabolism of creatinine, or treatment with medications that affect renal tubular creatinine secretion. GFR/1.73 sq M predicted among blacks MDRD (S/P/Bld) [Vol rate/Area] mL/min/{1.73_m2} >60 mL/min [facility] Work Phone: Glucose [Mass/Vol] 95 mg/dL 70 - 100 mg/dL [facility] Work Phone: Interpretation and review of laboratory results Abnormal [facility] Work Phone: Potassium [Moles/Vol] 3.3 mmol/L Low 3.5 - 5.1 mmol/L [facility] Work Phone: Protein [Mass/Vol] 7.1 g/dL 6.3 - 8.2 g/dL [employer] Work Phone: Sodium [Moles/Vol] 138 mmol/L 135 - 145 mmol/L [facility] Work Phone: Urea nitrogen [Mass/Vol] 9 mg/dL 7 - 20 mg/dL [facility] Work Phone: Hemogram (CBC) w/Auto Diffon 07-28-2020 Absolute Baso # 0.1 10*3/uL 0.0 - 0.2 10*3/uL [facility] Work Phone: Absolute Neut # 3.9 10*3/uL 1.8 - 7.0 10*3/uL [facility] Work Phone: Basophils/100 WBC (Bld) 0.8 % 0.0 - 2.0 % [facility] Work Phone: Eosinophils (Bld) [#/Vol] 0.1 10*3/uL 0.0 - 0.5 10*3/uL [facility] Work Phone: Eosinophils/100 WBC (Bld) 1.1 % 1.0 - 6.0 % [facility] Work Phone: Erythrocyte distribution width (RBC) [Ratio] 12.4 % 11.5 - 14.5 % [facility] Work Phone: Granulocytes/100 WBC (Bld) 56.4 % 40.0 - 80.0 % [facility] Work Phone: Hematocrit (Bld) [Volume fraction] 35.9 % 35.0 - 47.0 % [facility] Work Phone: Hemoglobin (Bld) [Mass/Vol] 12.1 g/dL 11.7 - 16.0 g/dL [facility] Work Phone: Interpretation and review of laboratory results Abnormal [facility] Work Phone: Lymphocytes (Bld) [#/Vol] 2.3 10*3/uL 1.0 - 4.3 10*3/uL [employer] Work Phone: Lymphocytes/100 WBC (Bld) 32.7 % 20.0 - 40.0 % [facility] Work Phone: MCH (RBC) [Entitic mass] 28.7 pg 26.0 - 34.0 pg [facility] Work Phone: MCHC (RBC) [Mass/Vol] 33.8 % 32.0 - 36.0 % [facility] Work Phone: MCV (RBC) [Entitic vol] 85.0 fL 79.0 - 98.0 fL [facility] Work Phone: Monocytes (Bld) [#/Vol] 0.6 10*3/uL 0.0 - 0.8 10*3/uL [facility] Work Phone: Monocytes/100 WBC (Bld) 9.0 % 2.0 - 10.0 % [facility] Work Phone: Platelet mean volume (Bld) [Entitic vol] 7.1 fL Low 7.4 - 10.4 fL [facility] Work Phone: Platelets (Bld) [#/Vol] 362 10*3/uL 140 - 440 10*3/uL [facility] Work Phone: RBC (Bld) [#/Vol] 4.22 10*6/uL 3.80 - 5.2 0 10*6/uL [facility] Work Phone: WBC (Bld) [#/Vol] 6.9 10*3/uL 3.6 - 10.7 10*3/uL [facility] Work Phone: Test Performed by [facility], [address] [place] [address] [facility] Work Phone: Hemogram w/ Autodiffon 07-28 Abs Baso Cnt 0.1 10*3/uL Normal 0.0-0.2 [facility] Comment on above: Performed By: #### Q WNT4, CMP3, LIPA4, HEMDF #### [address] [address] Abs Neutrophile Cnt 3.9 10*3/uL Normal 1.8-7.0 [facility] Comment on above: Performed By: #### Q WNT4, CMP3, LIPA4, HEMDF #### [address] [address] Basophils/100 WBC (Bld) 0.8 % Normal 0.0-2.0 [facility] Comment on above: Performed By: #### Q WNT4, CMP3, LIPA4, HEMDF #### [address] [address] Eosinophils (Bld) [#/Vol] 0.1 10*3/uL Normal 0.0-0.5 [facility] Comment on above: Performed By: #### Q WNT4, CMP3, LIPA4, HEMDF #### [address] [address] Eosinophils/100 WBC (Bld) 1.1 % Normal 1.0-6.0 [facility] Comment on above: Performed By: #### Q WNT4, CMP3, LIPA4, HEMDF #### [address] [address] Erythrocyte distribution width (RBC) [Ratio] 12.4 % Normal 11.5-14.5 [facility] Comment on above: Performed By: #### Q WNT4, CMP3, LIPA4, HEMDF #### [address] [address] Granulocytes/100 WBC (Bld) 56.4 % Normal 40.0-80.0 [facility] Comment on above: Performed By: #### Q WNT4, CMP3, LIPA4, HEMDF #### [address] [address] Hematocrit (Bld) [Volume fraction] 35.9 % Normal 35.0-47.0 [facility] Comment on above: Performed By: #### Q WNT4, CMP3, LIPA4, HEMDF #### [address] [address] Hemoglobin (Bld) [Mass/Vol] 12.1 g/dL Normal 11.7-16.0 [facility] Comment on above: Performed By: #### Q WNT4, CMP3, LIPA4, HEMDF #### [address] [address] Lymphocytes (Bld) [#/Vol] 2.3 10*3/uL Normal 1.0-4.3 [facility] Comment on above: Performed By: #### Q WNT4, CMP3, LIPA4, HEMDF #### [address] [address] Lymphocytes/100 WBC (Bld) 32.7 % Normal 20.0-40.0 [facility] Comment on above: Performed By: #### Q WNT4, CMP3, LIPA4, HEMDF #### [address] [address] MCH (RBC) [Entitic mass] 28.7 pg Normal 26.0-34.0 [facility] Comment on above: Performed By: #### Q WNT4, CMP3, LIPA4, HEMDF #### [address] [address] MCHC 33.8 % Normal 32.0-36.0 [facility] Comment on above: Performed By: #### Q WNT4, CMP3, LIPA4, HEMDF #### [address] [address] MCV (RBC) [Entitic vol] 85.0 fL Normal 79.0-98.0 [facility] Comment on above: Performed By: #### Q WNT4, CMP3, LIPA4, HEMDF #### [address] [address] Monocytes (Bld) [#/Vol] 0.6 10*3/uL Normal 0.0-0.8 [facility] Comment on above: Performed By: #### Q WNT4, CMP3, LIPA4, HEMDF #### [address] [address] Monocytes/100 WBC (Bld) 9.0 % Normal 2.0-10.0 [facility] Comment on above: Performed By: #### Q WNT4, CMP3, LIPA4, HEMDF #### [address] [address] Platelet mean volume (Bld) [Entitic vol] 7.1 fL Low 7.4-10.4 [facility] Comment on above: Performed By: #### Q WNT4, CMP3, LIPA4, HEMDF #### [address] [address] Platelets (Bld) [#/Vol] 362 10*3/uL Normal 140-440 [facility] Comment on above: Performed By: #### Q WNT4, CMP3, LIPA4, HEMDF #### [address] [address] RBC (Bld) [#/Vol] 4.22 10*6/uL Normal 3.80-5.20 [facility] Comment on above: Performed By: #### Q WNT4, CMP3, LIPA4, HEMDF #### [address] [address] WBC (Bld) [#/Vol] 6.9 10*3/uL Normal 3.6-10.7 [facility] Comment on above: Performed By: #### Q WNT4, CMP3, LIPA4, HEMDF #### [address] [address] Lipaseon 07-28-2020 Lipase [Catalytic activity/Vol] 173 U/L Normal 23-300 [facility] Comment on above: Performed By: #### Q WNT4, CMP3, LIPA4, HEMDF #### [facility] [address] [place] [address] Lipase [Catalytic activity/Vol] 173 U/L 23 - 300 U/L [facility] Work Phone: Otheron 07-28-2020 Test Performed by [facility], [address] [place] [address] [facility] Work Phone: Urinalysison 07-28-2020 Appearance (U) Clear Clear NA [facility] Work Phone: Comment on above: . Bacteria, UA Many (51-100) Abnormal Negative /[HPF] [facility] Work Phone: Comment on above: . Bilirubin Urine Negative Negative mg/dL [facility] Work Phone: Comment on above: . Color (U) YELLOW Lt. Yellow NA [facility] Work Phone: Comment on above: . Glucose, Ur Normal Normal (<70) mg/dL [facility] Work Phone: Comment on above: . Interpretation and review of laboratory results Abnormal [facility] Work Phone: Ketones Ql (U) Negative Negative mg/dL [facility] Work Phone: Comment on above: . LEUKOCYTES, UA 25 Abnormal Negative Marleni/uL [facility] Work Phone: Comment on above: . Nitrite, Urine Negative Negative NA [facility] Work Phone: Comment on above: . Occult Blood,Urine Negative Negative mg/dL [facility] Work Phone: Comment on above: . pH (U) 6.0 [pH] [facility] Work Phone: Comment on above: . Protein (U) [Mass/Vol] 10 mg/dL Abnormal Negative [facility] Work Phone: Comment on above: . RBC (U) [#/Vol] Negative 0 - 2 /[HPF] [facility] Work Phone: Comment on above: . Specific [place], Urine 1.025 [facility] Work Phone: Comment on above: . Squam Epithel, UA 11-15 Abnormal 3 - 5 /[HPF] [facility] Work Phone: Comment on above: . Urobilinogen, Urine Normal Normal ( 0-1) mg/dL [facility] Work Phone: Comment on above: . Volume .12 ml [facility] Work Phone: Comment on above: . WBC, UA 0-2 0 - 5 /[HPF] [facility] Work Phone: Comment on above: . Test Performed by [facility], [address] [place] [address] [facility] Work Phone: hCG Quantitativeon 1 hCG Quantitative 383 m[IU]/mL Abnormal [facility] Comment on above: Result Comment: Fema les < 5 Values in should double every 2 to 3 days for the first 6 weeks.Elevated concentrations of human chorionic gonadotropin (hCG) measured in the first trimester of are observed in normal , but may serve as an indication of chorionic carcinoma, hydatiform mole, or multiple .Decreasing hCG concentrations indicate threatened or missed , recent termination of , ectopic , gestosis or intrauterine . Galina- and postmenopausal females may have detectable hCG concentrations (< or = to 14 mIU/mL) due to pituitary production of hCG. Serum follicle-stimulating hormone measurement may aid in ruling-out in this population. Cutoffs of greater than 20 to 45 mIU/mL have been suggested and are method dependent. False-elevations (called phantom human chorionic gonadotropin: hCG) may occur with patients who have human antianimal or heterophilic antibodies. Some specimens may not dilute linearly due to abnormal forms of hCG. Elevated hCG concentrations not associated with are found in patients with other diseases such as tumors of the germ cells, ovaries, bladder, pancreas, stomach, lungs, and liver. This test is not intended to detect or monitor tumors or gestational trophoblastic disease. Performed By: #### Q WNT4, CMP3, LIPA4, HEMDF #### [facility] [address] [place] [address] [id number] 12-22-2019 SARS-CoV-2 (COVID-19) RNA TIARA+probe Ql (Unsp spec) SARS-CoV-2 --> Status: F Not Detected Expected Result: Not Detected _ Real-time, RT-PCR performed on the [employer] System by the [facility]. Negative results do not preclude SARS-CoV-2 infection and should not be used as the sole basis for treatment or other patient management decisions. This assay was developed by [employer] and distributed under an Emergency Use Authorization (EUA) granted by the FDA for the qualitative detection of SARS-CoV-2 nucleic acid. Expected Result: Not Detected _ Real-time, RT-PCR performed on the [employer] System by the [facility]. Negative results do not preclude SARS-CoV-2 infection and should not be used as the sole basis for treatment or other patient management decisions. This assay was developed by [employer] and distributed under an Emergency Use Authorization (EUA) granted by the FDA for the qualitative detection of SARS-CoV-2 nucleic acid. Normal [facility] Comment on above: Order Comment: Speci men Source Comment:Nasopharyngeal Swab Performed By: #### C OVID #### [facility] [address] [place] [address] Add On Lab Teston 12-21-2019 Sodium [Moles/Vol] Accepted [place], [place] Comment on above: Specimen available & acceptable for analysis. Test Performed by [facility], [address] [place], [place] [address] [place] Add on test from HISon 12-20 Add on test from HIS Accepted Normal [facility] Comment on above: Result Comment: Spec imen available & acceptable for analysis. Performed By: #### A DDON ####[facility] [place] [address] CBC Auto Differentialon 08-0 Absolute Baso # 0.0 10*3/uL 0 - 0.2 10*3/uL [place] Absolute Neut # 2.8 10*3/uL 1.8 - 7 10*3/uL [place] Basophils/100 WBC (Bld) 0.8 % 0 - 2 % [place] Eosinophils (Bld) [#/Vol] 0.1 10*3/uL 0 - 0.5 10*3/uL [place] Eosinophils/100 WBC (Bld) 2.0 % 1 - 6 % [place] Erythrocyte distribution width (RBC) [Ratio] 13.8 % 11.5 - 14.5 % [place] Granulocytes/100 WBC (Bld) 53.4 % 40 - 80 % [place] Hematocrit (Bld) [Volume fraction] 35.6 % 35 - 47 % [place] Hemoglobin (Bld) [Mass/Vol] 11.9 g/dL 11.7 - 16 g/dL [place] Interpretation and review of laboratory results Abnormal [place] Lymphocytes (Bld) [#/Vol] 1.8 10*3/uL 1 - 4.3 10*3/uL [place] Lymphocytes/100 WBC (Bld) 35.1 % 20 - 40 % [place] MCH (RBC) [Entitic mass] 28.0 pg 26 - 34 pg [place] MCHC (RBC) [Mass/Vol] 33.4 % 32 - 36 % [place] MCV (RBC) [Entitic vol] 83.8 fL 79 - 98 fL [place] Monocytes (Bld) [#/Vol] 0.5 10*3/uL 0 - 0.8 10*3/uL [place] Monocytes/100 WBC (Bld) 8.7 % 2 - 10 % [place] Platelet mean volume (Bld) [Entitic vol] 6.9 fL Low 7.4 - 10.4 fL [place] Platelets (Bld) [#/Vol] 313 10*3/uL 140 - 440 10*3/uL [place] RBC (Bld) [#/Vol] 4.25 10*6/uL 3.8 - 5.2 10*6/uL [place] WBC (Bld) [#/Vol] 5.3 10*3/uL 3.6 - 10.7 10*3/uL [place] Test Performed by [facility], [address] [place] [address] [place], [place] CR Chest Portableon 12-21-19 20 CR Chest Portable Patient Name: SELENE LARKIN Diagnostic Radiology Exam Date/Time 12/21/2019 16:01:23 EDT Exam CR Chest Portable Ordering Physician [id number] BELL Accession Number [id number] CPT4 Codes 32411 () Reason For Exam Chest pain Report EXAM TYPE: RADIOLOGIC EXAMINATION, CHEST, SINGLE VIEW FRONTAL (CXR SINGLE VIEW) EXAM DATE AND TIME: 12/21/2019 4:01 PM EDT INDICATION: Chest pain COMPARISON: None available. TECHNIQUE: A single frontal view of the thorax was obtained and reviewed. Special views: None. FINDINGS/IMPRESSION: 1. Lines/Tubes/Devices/Roderick dware: Cholecystectomy clips. 2. Lungs: Hazy reticular airspace opacity within the right lower lung, concerning for pneumonia. Recommend repeat radiographs in six weeks following appropriate therapy to assess resolution. No edema or left-sided consolidation. 3. Pleura: No pneumothorax or large pleural effusions. 4. Heart and mediastinum: Normal cardiomediastinal contours. Report Dictated on Final Dictating Physician: MD TERRY NEIL Signed Date and Time: 12/21/2019 5:02 pm Signed by: MD TERRY NEIL Transcribed Date and Time: 12/21/2019 5:03 Normal [facility] Comp Panel with Mg Reflexon 12-21-2019 ALP [Catalytic activity/Vol] 53 U/L Normal 38-126 [facility] Comment on above: Performed By: #### T SH5, MG3, TROPN, CMP3M, HEMDF, DDI2 #### [facility] [address] [place] [id number] ALT [Catalytic activity/Vol] 26 U/L Normal 0-34 [facility] Comment on above: Result Comment: The ALT test is performed by an updated assay method. Please note that the reference intervals have been changed and are now sex specific. Performed By: #### T SH5, MG3, TROPN, CMP3M, HEMDF, DDI2 #### [facility] [address] [place] [address] Calcium [Mass/Vol] 8.8 mg/dL Normal 8.4-10.4 [facility] Comment on above: Performed By: #### T SH5, MG3, TROPN, CMP3M, HEMDF, DDI2 #### [facility] [address] [place] [address] Glucose [Mass/Vol] 84 mg/dL Normal 70-100 [facility] Comment on above: Performed By: #### T SH5, MG3, TROPN, CMP3M, HEMDF, DDI2 #### [facility] [address] [place] [address] Urea nitrogen [Mass/Vol] 10 mg/dL Normal 7-20 [facility] Comment on above: Performed By: #### T SH5, MG3, TROPN, CMP3M, HEMDF, DDI2 #### [facility] [address] [place] [address] Anion Gap 5 Normal [facility] Comment on above: Performed By: #### T SH5, MG3, TROPN, CMP3M, HEMDF, DDI2 #### [facility] [address] [place] [address] AST [Catalytic activity/Vol] 30 U/L Normal 15-46 [facility] Comment on above: Performed By: #### T SH5, MG3, TROPN, CMP3M, HEMDF, DDI2 #### [facility] [address] [place] [address] Bilirubin [Mass/Vol] 0.7 mg/dL Normal 0.2-1.3 [facility] Comment on above: Performed By: #### T SH5, MG3, TROPN, CMP3M, HEMDF, DDI2 #### [facility] [address] [place] [address] CO2 [Moles/Vol] 25 mmol/L Normal 22-30 [facility] Comment on above: Performed By: #### T SH5, MG3, TROPN, CMP3M, HEMDF, DDI2 #### [facility] [address] [place] [id number] Creatinine [Mass/Vol] 0.74 mg/dL Normal 0.52-1.25 [facility] Comment on above: Performed By: #### T SH5, MG3, TROPN, CMP3M, HEMDF, DDI2 #### [facility] [address] [place] [id number] eGFR OTHER > 90.0 Normal >60 [facility] Comment on above: Result Comment: KDIG O guidelines provide the following GFR categories: Stage GFR(ml/min/1.73 m2) Terms G1 >=90 Normal or high G2 60-89 Mildly decreased* G3a 45-59 Mildly to moderately decreased G3b 30-44 Moderately to severely decreased G4 15-29 Severely decreased G5 <15 Kidney failure *Relative to young adult level. In the absence of evidence of kidney damage, neither GFR category G1 nor G2 fulfill the criteria for CKD. The CKD-EPI equation is validated in individuals 18 years of age and older. Currently the best equation for estimating glomerular filtration rate (GFR) from serum creatinine in children is the Bedside Lentz equation. It is less accurate in patients with extremes of muscle mass, restriction of dietary protein, ingestion of creatine, extra-renal metabolism of creatinine, or treatment with medications that affect renal tubular creatinine secretion. Performed By: #### T SH5, MG3, TROPN, CMP3M, HEMDF, DDI2 #### [facility] [address] [place] [id number] GFR/1.73 sq M.predicted among blacks MDRD (S/P/Bld) [Vol rate/Area] mL/min/{1.73_m2} Normal >60 [facility] Comment on above: Performed By: #### T SH5, MG3, TROPN, CMP3M, HEMDF, DDI2 #### [facility] [address] [place] [id number] Protein [Mass/Vol] 6.8 g/dL Normal 6.3-8.2 [facility] Comment on above: Performed By: #### T SH5, MG3, TROPN, CMP3M, HEMDF, DDI2 #### [facility] [address] [place] [address] Potassium [Moles/Vol] 3.5 mmol/L Normal 3.5-5.1 [facility] Comment on above: Performed By: #### T SH5, MG3, TROPN, CMP3M, HEMDF, DDI2 #### [facility] [address] [place] [address] Sodium [Moles/Vol] 138 mmol/L Normal 135-145 [facility] Comment on above: Performed By: #### T SH5, MG3, TROPN, CMP3M, HEMDF, DDI2 #### [facility] [address] [place] [address] Albumin [Mass/Vol] 4.1 g/dL Normal 3.5-5.0 [facility] Comment on above: Performed By: #### T SH5, MG3, TROPN, CMP3M, HEMDF, DDI2 #### [facility] [address] [place] [address] Chloride [Moles/Vol] 108 mmol/L High 98-107 [facility] Comment on above: Performed By: #### T SH5, MG3, TROPN, CMP3M, HEMDF, DDI2 #### [facility] [address] [place] [address] Comprehensive Metabolic Pane l w/ Reflex to MGon 12-21-2019 Albumin [Mass/Vol] 4.1 g/dL 3.5 - 5 g/dL [place] ALP [Catalytic activity/Vol] 53 U/L 38 - 126 U/L [place] ALT [Catalytic activity/Vol] 26 U/L 0 - 34 U/L [place] Comment on above: The ALT test is perf ormed by an updated assay method. Please note that the reference intervals have been changed and are now sex specific. Anion gap [Moles/Vol] 5 mmol/L [place] AST [Catalytic activity/Vol] 30 U/L 15 - 46 U/L [place] Bilirubin Ql (U) 0.7 mg/dL 0.2 - 1.3 mg/dL [place] Calcium [Mass/Vol] 8.8 mg/dL 8.4 - 10. 4 mg/dL [place] Chloride [Moles/Vol] 108 mmol/L High 98 - 10 7 mmol/L [place] CO2 [Moles/Vol] 25 mmol/L 22 - 30 mmol/L [place] Creatinine [Mass/Vol] 0.74 mg/dL 0.52 - 1.25 mg/dL [place] EGFR IF NonAfrican [place]otho >90.0 >60 mL/min [place] Comment on above: KDIGO guidelines pro vide the following GFR categories: Stage GFR(ml/min/1.73 m2) Terms G1 >=90 Normal or high G2 60-89 Mildly decreased* G3a 45-59 Mildly to moderately decreased G3b 30-44 Moderately to severely decreased G4 15-29 Severely decreased G5 <15 Kidney failure *Relative to young adult level. In the absence of evidence of kidney damage, neither GFR category G1 nor G2 fulfill the criteria for CKD. The CKD-EPI equation is validated in individuals 18 years of age and older. Currently the best equation for estimating glomerular filtration rate (GFR) from serum creatinine in children is the Bedside Lentz equation. It is less accurate in patients with extremes of muscle mass, restriction of dietary protein, ingestion of creatine, extra-renal metabolism of creatinine, or treatment with medications that affect renal tubular creatinine secretion. GFR/1.73 sq M predicted among blacks MDRD (S/P/Bld) [Vol rate/Area] mL/min/{1.73_m2} >60 mL/min [place] Glucose [Mass/Vol] 84 mg/dL 70 - 100 mg/dL [place] Interpretation and review of laboratory results Abnormal [place] Potassium [Moles/Vol] 3.5 mmol/L 3.5 - 5.1 mmol/L [place] Protein [Mass/Vol] 6.8 g/dL 6.3 - 8.2 g/dL [place] Sodium [Moles/Vol] 138 mmol/L 135 - 145 mmol/L [place] Urea nitrogen [Mass/Vol] 10 mg/dL 7 - 20 mg/dL [place] Test Performed by [facility], [address] [place], [place] [address] [place] D-Dimer, Innovanceon 020 D-Dimer, Innovance 0.33 mg/L Normal 0.00-0.50 [facility] Comment on above: Result Comment: Inno vargas D-Dimer values of <0.50 mg/L FEU can be used in combination with a pre-test probability model (e.g. Well's) to exclude pulmonary embolism (PE) disease, as well as an aid in the diagnosis of deep vein thrombosis (DVT). Performed By: #### T SH5, MG3, TROPN, CMP3M, HEMDF, DDI2 #### [facility] [address] [place] [address] D-Dimer, Quantitativeon D-Dimer, Quant 0.33 mg/L 0 - 0.5 mg/L [place], [place] Comment on above: Innovance D-Dimer va lues of <0.50 mg/L FEU can be used in combination with a pre-test probability model (e.g. Well's) to exclude pulmonary embolism (PE) disease, as well as an aid in the diagnosis of deep vein thrombosis (DVT). Test Performed by [facility], [address] [place], [place] [id number] [place] [address] ED Provider Noteon 0 ED Provider Note Emergency Department Encounter [facility] ED Patient: Selene Larkin : 1995 Date of Evaluation: 12/21/2019 ED Supervising Physician: Duane Marcus DO I independently examined and evaluated Selene Larkin. In brief, Selene Larkin is a 24 y.o. female that presents to the emergency department 1 month post-. Recently started on levothyroxine off for a week. She notes intermittent palpitations associated with chest tightness. She notes no alleviating or exacerbating features. She notes her symptoms are not exertional. A she notes her symptoms are non-pleuritic. The patient denies recent surgery in the last 4 weeks or immobilization in the past 3 days, denies previous diagnosis DVT or PE, hemoptysis, or malignancy with treatment in the last 6 months. No recent estrogen usage. Focused exam: Constitutional: healthy, interactive alert, no distress Oropharynx: Moist Mucous Membranes. No lateral shift of uvula or airway; no stridor. Neck and Lymphatic: supple. No masses or fluctuance. Lungs: clear to auscultation, no wheezes, no focal consolidation, no accessory muscle use Heart: regular rate and rhythm and no murmurs, clicks, or gallops. Abdomen: Soft, Nontender, No distension and No organomegaly Extremities: Full ROM all 4 extremities and Normal peripheral perfusion and pulses. No calf tenderness noted. No lower extremity edema noted Neurologic: Alert and interactive, normal speech, normal gait and moves all extremities with appropriate strength Skin: No rash or lesion, Warm and Dry Brief ED course/MDM: 24 year old F presents with palpitations. The patient was examined. She was HDS, afebrile, non-toxic appearing. Heart and lung auscultation was unremarkable. EKG without arrhythmia, afib, Brugada, WPW. No evidence of ischemia or right heart strain. Troponin negative. Additional labs and images undertaken to further elucidate etiology of the patient's complaints. Concern specifically for cardiomyopathy versus PE versus anemia versus electrolyte abnormality versus pneumonia. Chest x-ray with right lower lobe pneumonia. Chest x-ray did not reveal any evidence of cardiomyopathy pulmonary edema or enlarged heart border. Labs without evidence of significant anemia, d-dimer negative making PE less likely, electrolyte abnormalities. Patient is treated with doxycycline for presumed right lower lobe pneumonia. He was restarted on levothyroxine (given mild bradycardia and soft pressures). A she was deemed appropriate for discharge given normal vitals, benign exam, negative labs and imaging studies The patient was instructed to return to the ED if his/her symptoms changed or worsened. The patient was instructed to follow-up with PCP, OB in the next 24 hours or at the earliest possible appointment for reassessment and further management The pateint agreed with the plan and expressed understanding. All diagnostic, treatment, and disposition decisions were made by myself in conjunction with the YULIANA. For all further details of the patient's emergency department visit, please see their documentation. (Please note that portions of this note may have been completed with a voice recognition program. Efforts were made to edit the dictations but occasionally words are mis-transcribed.) Duane Marcus, DO [employer] Duane Amrit, DO 12/21/19 1901 Duaneayse Ledesmas, DO 02/02/20 1250 Normal [facility] HCG,Urine Qualon 12-21-2019 Beta HCG ( test) Ql (U) Negative Normal Negative [facility] Comment on above: Result Comment: Preg krista is the most common reason for HCG in urine, although choriocarcinoma, hydatidiform mole, and certain nontropho- blastic malignancies also result in detectable urinary HCG levels. Sensitivity = 20mIU/mL. Performed By: #### H CGUR ####[facility] [place] [address] Hemogram w/ Autodiffon 12-20 Abs Baso Cnt 0.0 10*3/uL Normal 0.0-0.2 [facility] Comment on above: Performed By: #### T SH5, MG3, TROPN, CMP3M, HEMDF, DDI2 #### [facility] [address] [place] [address] Abs Neutrophile Cnt 2.8 10*3/uL Normal 1.8-7.0 [facility] Comment on above: Performed By: #### T SH5, MG3, TROPN, CMP3M, HEMDF, DDI2 #### [facility] [address] [place] [address] Basophils/100 WBC (Bld) 0.8 % Normal 0.0-2.0 [facility] Comment on above: Performed By: #### T SH5, MG3, TROPN, CMP3M, HEMDF, DDI2 #### [facility] [address] [place] [address] Eosinophils (Bld) [#/Vol] 0.1 10*3/uL Normal 0.0-0.5 [facility] Comment on above: Performed By: #### T SH5, MG3, TROPN, CMP3M, HEMDF, DDI2 #### [facility] [address] [place] [address] Eosinophils/100 WBC (Bld) 2.0 % Normal 1.0-6.0 [facility] Comment on above: Performed By: #### T SH5, MG3, TROPN, CMP3M, HEMDF, DDI2 #### [facility] [address] [place] [address] Erythrocyte distribution width (RBC) [Ratio] 13.8 % Normal 11.5-14.5 [facility] Comment on above: Performed By: #### T SH5, MG3, TROPN, CMP3M, HEMDF, DDI2 #### [facility] [address] [place] [address] Granulocytes/100 WBC (Bld) 53.4 % Normal 40.0-80.0 [facility] Comment on above: Performed By: #### T SH5, MG3, TROPN, CMP3M, HEMDF, DDI2 #### [place] [address] [place] [address] Hematocrit (Bld) [Volume fraction] 35.6 % Normal 35.0-47.0 [facility] Comment on above: Performed By: #### T SH5, MG3, TROPN, CMP3M, HEMDF, DDI2 #### [facility] [address] [place] [address] Hemoglobin (Bld) [Mass/Vol] 11.9 g/dL Normal 11.7-16.0 [facility] Comment on above: Performed By: #### T SH5, MG3, TROPN, CMP3M, HEMDF, DDI2 #### [place] [address] [place] [address] Lymphocytes (Bld) [#/Vol] 1.8 10*3/uL Normal 1.0-4.3 [facility] Comment on above: Performed By: #### T SH5, MG3, TROPN, CMP3M, HEMDF, DDI2 #### [place] [address] [place] [address] Lymphocytes/100 WBC (Bld) 35.1 % Normal 20.0-40.0 [facility] Comment on above: Performed By: #### T SH5, MG3, TROPN, CMP3M, HEMDF, DDI2 #### [facility] [address] [place] [address] MCH (RBC) [Entitic mass] 28.0 pg Normal 26.0-34.0 [facility] Comment on above: Performed By: #### T SH5, MG3, TROPN, CMP3M, HEMDF, DDI2 #### [facility] [address] [place] [id number] MCHC 33.4 % Normal 32.0-36.0 [facility] Comment on above: Performed By: #### T SH5, MG3, TROPN, CMP3M, HEMDF, DDI2 #### [facility] [address] [place] [address] MCV (RBC) [Entitic vol] 83.8 fL Normal 79.0-98.0 [facility] Comment on above: Performed By: #### T SH5, MG3, TROPN, CMP3M, HEMDF, DDI2 #### [facility] [address] [place] [id number] Monocytes (Bld) [#/Vol] 0.5 10*3/uL Normal 0.0-0.8 [facility] Comment on above: Performed By: #### T SH5, MG3, TROPN, CMP3M, HEMDF, DDI2 #### [facility] [address] [place] [address] Monocytes/100 WBC (Bld) 8.7 % Normal 2.0-10.0 [facility] Comment on above: Performed By: #### T SH5, MG3, TROPN, CMP3M, HEMDF, DDI2 #### [facility] [address] [place] [address] Platelet mean volume (Bld) [Entitic vol] 6.9 fL Low 7.4-10.4 [facility] Comment on above: Performed By: #### T SH5, MG3, TROPN, CMP3M, HEMDF, DDI2 #### [facility] [address] [place] [id number] Platelets (Bld) [#/Vol] 313 10*3/uL Normal 140-440 [facility] Comment on above: Performed By: #### T SH5, MG3, TROPN, CMP3M, HEMDF, DDI2 #### [facility] [address] [place] [address] RBC (Bld) [#/Vol] 4.25 10*6/uL Normal 3.80-5.20 [facility] Comment on above: Performed By: #### T SH5, MG3, TROPN, CMP3M, HEMDF, DDI2 #### [facility] [address] [place] [address] WBC (Bld) [#/Vol] 5.3 10*3/uL Normal 3.6-10.7 [facility] Comment on above: Performed By: #### T SH5, MG3, TROPN, CMP3M, HEMDF, DDI2 #### [facility] [address] [place] [address] Magnesiumon 12-21-2019 Magnesium [Mass/Vol] 1.9 mg/dL Normal 1.6-2.3 [facility] Comment on above: Performed By: #### T SH5, MG3, TROPN, CMP3M, HEMDF, DDI2 ####[facility] [place] [address] Magnesium [Mass/Vol] 1.9 mg/dL 1.6 - 2 .3 mg/dL [place] Test Performed by [facility], [address] [place] [id number] [place] [address] , URINEon 0 Beta HCG ( test) Ql (U) Negative Negative NA [place], [place] Comment on above: is the mos t common reason for HCG in urine, although choriocarcinoma, hydatidiform mole, and certain nontropho- blastic malignancies also result in detectable urinary HCG levels. Sensitivity = 20mIU/mL. Test Performed by [facility], [address] [place] [address] [place] [address] TSH without Reflexon 020 TSH Qn 1.306 u[IU]/mL 0.465 - 4.68 u[IU]/mL [place], [place] Test Performed by [facility], [address] [place], [place] [address] [place] Thyroid Stim. Hormoneon Thyroid Stim. Hormone 1.306 u[IU]/mL Normal 0.465-4.68 0 [facility] Comment on above: Performed By: #### T SH5, MG3, TROPN, CMP3M, HEMDF, DDI2 #### [facility] [address] [place] [address] Troponinon 12-21-2019 Troponin I.cardiac [Mass/Vol] ng/mL 0 - 0.034 ng/mL [place], [place] Comment on above: . Test Performed by [facility], [address] [place], [place] [address] [place] Troponin Ion 12-21-2019 Troponin I.cardiac [Mass/Vol] ng/mL Normal 0.000-0.034 [facility] Comment on above: Result Comment: . Performed By: #### T SH5, MG3, TROPN, CMP3M, HEMDF, DDI2 #### [facility] [address] [place] [address] XR CHEST PORTABLEon 12-21-19 20 Patient Name: SELENE LARKIN ---Diagnostic Radiology--- Exam Date/Time 12/21/2019 16:01:23 EDT Exam CR Chest Portable Ordering Physician [id number] GURVINDER PENA Accession Number [id number] CPT4 Codes 60750 () Reason For Exam Chest pain Report EXAM TYPE: RADIOLOGIC EXAMINATION, CHEST, SINGLE VIEW FRONTAL (CXR SINGLE VIEW) EXAM DATE AND TIME: 12/21/2019 4:01 PM EDT INDICATION: Chest pain COMPARISON: None available. TECHNIQUE: A single frontal view of the thorax was obtained and reviewed. Special views: None. FINDINGS/IMPRESSION: 1. Lines/Tubes/Devices/Roderick dware: Cholecystectomy clips. 2. Lungs: Hazy reticular airspace opacity within the right lower lung, concerning for pneumonia. Recommend repeat radiographs in six weeks following appropriate therapy to assess resolution. No edema or left-sided consolidation. 3. Pleura: No pneumothorax or large pleural effusions. 4. Heart and mediastinum: Normal cardiomediastinal contours. Report Dictated on --- Final --- Dictating Physician: MD TERRY NEIL Signed Date and Time: 12/21/2019 5:02 pm Signed by: MD TERRY NEIL Transcribed Date and Time: 12/21/2019 5:03 [facility] [place], [place], [facility] Incoming Radiology Results From [facility] - 12/21/2019 5:03 PM EDT Patient Name: SELENE LARKIN ---Diagnostic Radiology--- Exam Date/Time 12/21/2019 16:01:23 EDT Exam CR Chest Portable Ordering Physician [id number] GURVINDER PENA Accession Number [id number] CPT4 Codes 87298 () Reason For Exam Chest pain Report EXAM TYPE: RADIOLOGIC EXAMINATION, CHEST, SINGLE VIEW FRONTAL (CXR SINGLE VIEW) EXAM DATE AND TIME: 12/21/2019 4:01 PM EDT INDICATION: Chest pain COMPARISON: None available. TECHNIQUE: A single frontal view of the thorax was obtained and reviewed. Special views: None. FINDINGS/IMPRESSION: 1. Lines/Tubes/Devices/Roderick dware: Cholecystectomy clips. 2. Lungs: Hazy reticular airspace opacity within the right lower lung, concerning for pneumonia. Recommend repeat radiographs in six weeks following appropriate therapy to assess resolution. No edema or left-sided consolidation. 3. Pleura: No pneumothorax or large pleural effusions. 4. Heart and mediastinum: Normal cardiomediastinal contours. Report Dictated on --- Final --- Dictating Physician: MD TERRY NEIL Signed Date and Time: 12/21/2019 5:02 pm Signed by: MD TERRY NEIL Transcribed Date and Time: 12/21/2019 5:03 [facility], [place], [place] Joycelyn 11-17-2019 CNPN Telephone (ENAGST) SELENE LARKIN ([id number]) 1995 F Date Time Provider Department 11/17/19 CHELO SORIA During your visit today, we recorded the following information about you: Giselle Martinez 11/17/2019 1:54 PM Signed ----- Message from Selene Chang sent at 11/17/2019 1:42 PM EDT ----- Regarding: FW: ENDOCRINOLOGY / NEW PATIENT / NEW PATIENT APPT REQUEST ----- Message ----- From: Yi Fitzpatrick Sent: 11/17/2019 11:18 AM EDT To: Patrice Endo Triage Pool Subject: ENDOCRINOLOGY / NEW PATIENT / NEW PATIENT AP# Subject Line Format: Medicine / [Provider Name] / [Issue] Patient has been identified by name and Date of (Y/N): Y Patient: Selene Larkin Date of : 1995 Provider for this encounter: No primary care provider on file. Reason for the call/escalation: NEW PATIENT - HYPOTHYROIDISM - REFERRED BY PCP - RECENTLY HAD BABY - POSSIBLE AUTO IMMUNE CONCERNS WELL Was an appointment scheduled (Y/N): N Reason patient was requesting visit (RFV/signs and symptoms/diagnosis) : Person calling if other than patient: PATIENT Return call to if other than patient: PATIENT Best contact number: [phone] Thank you, Yi Fitzpatrick November 17, 2019 11:18 AM Giselle Martinez 11/17/2019 1:56 PM Signed I called patient and she loses her insurance in January and was unable to accept the Sept appointment we had available for her. She appreciated the call but declined scheduling at this time. Giselle Martinez Allergies As of Date: 11/17/2019 (Not on File) Date Reviewed: Never Reviewed Reason for Visit: Future Appointment [256] Problem List As Of Date: 11/17/2019 (None) Encounter Status:Closed by GISELLE MARTINEZ on 11/17/19 [facility] PROGRESSon 08-16-2019 PROGRESS HNO ID: [id number] Author: Anh Ramirez (Pa) Service: ? Author Type: Physician Deep Submergence Vehicle Operator Type: Progress Notes Filed: 08/16/2019 5:27 PM Note Text: You do not need to proceed to the testing area at this time. You will not be tested. You will need to quarantine and follow self-monitoring procedures. These include: At present, these are our recommendations regarding the coronavirus (COVID-19) outbreak: - Wash your hands regularly for at least 20 seconds with soap and water, especially before eating. - If soap/water are unavailable, use a hand glass driller with at least 60% alcohol - Avoid touching your eyes, nose and mouth with unwashed hands. - Avoid close contact (within 6 feet) with people who are sick. - Stay if you are feeling sick. - Cover your cough or sneeze with a tissue, then throw the tissue in the trash. - Standard household cleansers and wipes are effective in cleaning and disinfecting frequently touched objects and surfaces. - Skip events that put you in contact with large groups of people (sporting events, concerts, [employer] website montes, etc). - Avoid unnecessary domestic and international travel, including travel through large international airports. - If traveling, wipe down your airplane seat (and tray) with a disinfecting wipe. If you have a fever, cough or shortness of breath, or are otherwise concerned you have COVID-19, we ask that you do not come to any [facility] facility without calling your primary care physician or speaking to a provider using a virtual visit using [facility] [employer] [employer] [facility]? Online. You will be evaluated to determine if you require being seen in person or if you meet CDC guidelines for testing for COVID-19 based on symptoms, travel and exposures. If you meet criteria for testing, your [employer] [facility] provider or primary care physician will advise how to proceed with testing - At this time, CDC does not recommend healthy people to wear facemasks in community settings to prevent infection. If you are ill, you may be asked to wear a face mask to prevent spreading illness to others in the healthcare setting. Do not re-wear face masks. Throw away after each use. -There is no need to stop your immunosuppressive medications preemptively. - If you become sick, please let your doctor know, and discuss with them prior to stopping any medications. - At this point, we have no knowledge that patients on immunosuppressive medications are at higher risk of COVID-19 infection. - Most importantly, don't panic. By following basic prevention measures such as hand hygiene and cover your cough, you are helping to keep yourself and others healthy. Additional information can be found on the [facility] and [place] web sites: https://www.cdc.gov/cor onavirus/2019-nCoV/inde x.html [email or web address] .[email or web address]/[email or web address] We are working in accordance with guidance from the Centers for Disease Control and Prevention (CDC). This is a fluid situation and we appreciate your continued support. If your medical condition worsens, please contact your primary care provider. Additional information can be found on the [facility] and [place] web sites: https://www.cdc.gov/cor onavirus/2019-nCoV/inde x.html [email or web address] .[email or web address]/[email or web address] Normal [facility] PROGRESS HNO ID: [id number] Author: Lori Weber) Mabel Service: ? Author Type: Physician Deep Submergence Vehicle Operator Type: Progress Notes Filed: 08/16/2019 5:24 PM Note Text: This patient encounter involved the screening or treatment of novel coronavirus infection (COVID-19). This Team Access Model visit is a virtual encounter. It required patient-provider interaction for the medical decision making as documented below. [employer] HIPAA secured video was used for evaluation of this patient. Telemedicine Evaluation for COVID-19 Infection SUBJECTIVE: Selene Larkin is an 24 year old currently 7 months who presents with an upper respiraotory illness with cough that began 1 week(s) ago and are constant since that time. also ill with similar symptoms. Cousin diagnosed with Covid-19 yestereday. Patient had direct contact with cousin Has the patient had any ill contacts? Yes Has the patient had contact with anyone confirmed with COVID-19 infection? Yes Does the patient have family with confirmed COVID-19 infection: Yes - Cousin. Last contact 10 days ago. Cousin is a healthcare worker and tested positive for Covid 19 yesterday Does the patient have the following symptoms or signs? *Fever: (Temp 100.4F or greater) Yes - felt warm. No documented temp *Coughing: Yes *Shortness of breath: Yes Nasal congestion: Yes Sore throat: No Muscle aches: No Decreased appetite: No Vomiting: No Diarrhea: No Signs of dehydration (low fluid intake or voiding, diarrhea, dry mucus membranes): No Decreased level of consciousness: No *Fever plus coughing or shortness of breath answered yes is considered high risk PATIENT'S HIGH RISK CATEGORY ASSESSMENT: Fever plus shortness of breath or a cough 7 months OBJECTIVE: Patient sounds or appears ill: No Patient is not able to speak in complete sentences: No Patient has labored breathing: No Patient is audibly coughing: Yes ASSESSMENT/PLAN: See encounter diagnoses and orders for additional plan. Selene Larkin is an 24 year old who appears to have COVID-19 infection and is high risk or with concerning symptoms, recommend COVID-19 testing. This patient encounter involved the screening or treatment of novel coronavirus infection (COVID-19). SIGNATURE: Lori Monroe PA-C DATE: August 16, 2019 [facility] Progress Noteon 08-03-2019 [employer] Authentication Interface Message Text CHIEF COMPLAINT: clubfoot evaluation. HISTORY OF PRESENT ILLNESS: Selene Larkin is a 24 y.o.-year-old female who is with her first child. She has been seen in the treatment center and her baby has been diagnosed as having a clubfoot by ultrasound without any other abnormalities identified. She has been sent to my office for further evaluation and management. Selene reports that her so far has been going quite well and she has not had any complications. There is a family history of clubfoot (MGM, MG uncle, MGGM). Otherwise, she and her have had a chance to look up some information about clubfoot, specifically Ponseti method and feel quite up to date in that regard. REVIEW OF SYSTEMS: Review of systems is negative for other significant musculoskeletal pain, loss of vision, hearing loss, high blood pressure, shortness of breath, skin ulcers, paresthesia, lymphedema, temperature intolerance, or nausea, unless otherwise stated in the history of present illness or past medical history. X-RAYS: I reviewed the ultrasound report from her last visits with the steward/stewardess third indicating an isolated clubfoot on the fetus with no other abnormalities identified. DIAGNOSIS/IMPRESSION: clubfoot. DISCUSSION/TREATMENT PLAN: At this time, I discussed Ponseti method clubfoot treatment at length with Selene including casting, possible tenotomy, long-term bracing, possible anterior tibial tendon transfer and long-term outlook. All of her questions were answered today and she agrees to comply with full Ponseti method treatment including all of the above named treatments especially bracing until at least age 4. Selene is due in October and I will have her contact my office after the baby is born for an evaluation appointment after discharge from the hospital. I certainly would be happy to speak with them sooner should they have any questions. I will likely institute her baby? s Ponseti casting shortly thereafter once I have had a chance to see the baby after and complete a full orthopaedic evaluation. Counseling and/or coordination of care was greater than 20 minutes which is more than 50% of the total time of 20 minutes spent on the encounter. After speaking with Selene by phone today, she is comfortable with the information relayed by phone and I will have my office staff send her our informational packet on clubfoot to review at home. She is well versed in Ponseti management from her own research online. I will cancel her appointment for today given the ongoing COVID 19 problem. [facility] Interface Message Text Met with patient. 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 Consent to share information with FTC team, OB and plate worker helper signed. Pt plans to deliver at [facility] with Dr. Regalado. Pipe Liner is Dr Brittanie Whitfield. female fetus- name is Westerlo Method of feeding: breast Ultrasound findings today: See report in procedures for details. Dr Grady did telephone consult with pt this am to address plan for - Reinforced continued OB care with Dr Regalado [facility] PROGRESSon 07-31-2019 PROGRESS HNO ID: [id number] Author: Rahat Yanez Service: ? Author Type: Nurse Practitioner Type: Progress Notes Filed: 07/30/2019 11:59 PM Note Text: Patient not seen Rahat Yanez, [email or web address].HOWARD [facility] Progress Noteon 07-16-2019 [employer]er Chassis Authentication Interface Message Text Discussed FTC services with pt. Will coordinate follow up ultrasound, meet with FTC team and ortho consultation in 2-3 weeks [facility] Assembler Chassis Authentication Interface Message Text Maternal Medicine Consult Date of Service: 07/16/2019 Referring Provider: Brando Regalado Primary Care Provider: [facility], MD Teja Reason for Consult: Dr. Brando Regalado requests that Selene be evaluated due to findings of bilateral club feet noted on level II ultrasound today Selene is a 24 y.o. G1. at 24 0/7 weeks GA who presents for evaluation of incomplete views on outside anatomy scan with today's level II consistent with bilateral clubfeet noted This was a focused visit based upon the ultrasound findings Social History Socioeconomic History ? Marital status: Unknown Spouse name: Not on file ? Number of children: Not on file ? Years of education: Not on file ? Highest education level: Not on file Occupational History ? Not on file Social Needs ? Financial resource strain: Not on file ? Food insecurity Worry: Not on file Inability: Not on file ? Transportation needs Medical: Not on file Non-medical: Not on file Tobacco Use ? Smoking status: Not on file Substance and Sexual Activity ? Alcohol use: Not on file ? Drug use: Not on file ? Sexual activity: Not on file Lifestyle ? Physical activity Days per week: Not on file Minutes per session: Not on file ? Stress: Not on file Relationships ? Social connections Talks on phone: Not on file Gets together: Not on file Attends scientology service: Not on file Active member of club or organization: Not on file Attends meetings of clubs or organizations: Not on file Relationship status: Not on file ? Intimate partner violence Fear of current or ex partner: Not on file Emotionally abused: Not on file Physically abused: Not on file Forced sexual activity: Not on file Other Topics Concern ? Not on file Social History Narrative ? Not on file Ultrasound Results: - Please see Ultrasound test for full details. Assessment/Plan: Selene Larkin is a 24 y.o. G1 at 24 0/7 weeks GA with findings today of bilateral clubfeet, family history of her Mother having this as well. Active Non-Hospital Problems Diagnosis Date Noted ? Known anomaly, antepartum 07/17/2019 Bilateral clubfeet noted on level II, sent for insufficient views of lower extremities from Dr. Regalado Low risk NIPT by report She was counseled on the findings today: Today, a comprehensive anatomy ultrasound was performed. growth was appropriate. Bilateral clubfeet were seen without other anomalies. There are some limitations on the ultrasound today that will need follow up. Clubfeet occurs in 1 in 1000 pregnancies. Most cases are isolated and idiopathic, but there are more than 250 non-chromosomal syndromes that include clubfeet. Chromosomal abnormalities associated with clubfoot include trisomy 18, and deletions of 18q, 4p, 9q, and 13q. Other etiologies include neuromuscular disorders. As long as there are no other concerns related to chromosomal issues this disorder should not change the course of her and delivery should be per usual obstetric indications. The will need a detailed physical exam at and consultation with a pediatric orthopedic surgeon. The recurrence risk in subsequent children if isolated with no genetic syndrome, is approximately 2%. She reports that her Mother had bilateral clubfeet at . I reviewed with the patient today the possible diagnostic versus screening modalities that are available for diagnosis, and the risks of amniocentesis were reviewed including premature rupture of membranes, labor, loss of up to 1 in 500. The patient Declines today in our discussion. NIPT was negative and need a copy of this report for follow up visit. I did discuss that even with a normal karyotype, there is still a possibility of non-chromosomal syndromes. The patient will be seen for follow up limitations in the next 2 weeks and a FTC appointment and pediatric orthopedic appointment as well to be coordinated for her so she knows what to expect with the after delivery. Of note a normal echo was performed today as well given anomaly Follow up 2 weeks for limitations and FTC evaluation. We need a copy of her NIPT from her primary OB office The total patient time of the visit was 20 minutes, of which greater than 50% of the time was spent counseling and coordinating care. [facility] [place] 04-30-2019 CARLITOS Telephone (HIOB) SELENE LARKIN ([id number]) 1995 F Date Time Provider Department 04/30/19 ANNETTA BERGERON During your visit today, we recorded the following information about you: Sahra Leroy RN 04/30/2019 3:44 PM Signed Called Selene Larkin and left message for patient on identified voicemail. Selene Larkin was informed of negative Non-Invasive Testing (NIPT) results for Trisomy 21, Trisomy 18 and Trisomy 13. Patient was also notified of the result of no sex chromosome aneuploidy detected. Patient instructed to call the office back if she wishes to know reported sex. Reviewed on identified voicemail that NIPT is considered screening and not diagnostic, so this result greatly reduces, but does not eliminate the chance that the fetus could have trisomy 21, trisomy 18, trisomy 13 or sex chromosome aneuploidy. Selene Larkin indicated understanding this information. and instructed to call office if she has questions. Patient advised to follow up with AFP neural tube defect screening (blood draw) at 16-18 weeks gestation and 18-20 week detailed anatomy ultrasound. Also instructed to follow-up with Primary OB Provider. Sahra Leroy RN 04/30/2019 4:04 PM Signed Patient returned call and gender reported as female. Patient denies further questions. Sahra Leroy RN Allergies As of Date: 04/30/2019 (Not on File) Date Reviewed: Never Reviewed Reason for Visit: Maternity 21 results [Other] Problem List As Of Date: 04/30/2019 (None) Encounter Status:Closed by SAHRA LEROY RN on 04/30/19 [facility] [id number] PLUSon 04-26-2019 About the test See Notes [facility] Comment on above: Result Comment: (NOT E) The MaterniT(R) 21 PLUS laboratory-developed test (LDT) analyzes circulating cell-free DNA from a maternal blood sample. The test is indicated for use in women with increased risk for chromosomal aneuploidy. Validation data on twin pregnancies is limited and the ability of this test to detect aneuploidy in a triplet has not yet been validated. Additional Findings N/A Normal [facility] Additnl Findings Int N/A Normal [facility] Additnl Findings Nte N/A Normal [facility] Chromosome 13 Negative Normal [facility] Chromosome 18 Negative Normal [facility] Chromosome 21 Negative Normal [facility] Superintendent Generating Plant Catarino See Notes Normal [facility] Comment on above: Result Comment: (NOT E) Fraction: 6% Gestational age not provided on the requisition form. Clinical correlation is recommended. Limitations See Notes [facility] Comment on above: Result Comment: (NOT E) While the results of these tests are highly accurate, discordant results, including inaccurate sex prediction, may occur due to placental, maternal, or mosaicism or neoplasm; vanishing twin; prior maternal organ transplant; or other causes. Sex chromosomal aneuploidies are not reportable for known multiple gestations. These tests are screening tests and not diagnostic; they do not replace the accuracy and precision of diagnosis with CVS or amniocentesis. A patient with a positive test result should be referred for genetic counseling and offered invasive diagnosis for confirmation of test results.[4] A negative result does not ensure an unaffected nor does it exclude the possibility of other chromosomal abnormalities or defects which are not a part of these tests. An uninformative result may be reported, the causes of which may include, but are not limited to, insufficient sequencing coverage, noise or artifacts in the region, amplification or sequencing bias, or insufficient fraction. These tests are not intended to identify pregnancies at risk for neural tube defects or ventral wall defects. Testing for whole chromosome abnormalities (including sex chromosomes) and for subchromosomal abnormalities could lead to the potential discovery of both and maternal genomic abnormalities that could have major, minor, or no, clinical significance. Evaluating the significance of a positive or a non-reportable result may involve both invasive testing and additional studies on the mother. Such investigations may lead to a diagnosis of maternal chromosomal or subchromosomal abnormalities, which on occasion may be associated with benign or malignant maternal neoplasms. These tests may not accurately identify triploidy, balanced rearrangements, or the precise location of subchromosomal duplications or deletions; these may be detected by diagnosis with CVS or amniocentesis. The ability to report results may be impacted by maternal BMI, maternal weight, maternal systemic lupus erythematosus (SLE) and/or by certain pharmaceutical agents such as low molecular weight heparin (for example: Lovenox(R), Xaparin(R), Clexane(R) and Fragmin(R)). The results of this testing, including the benefits and limitations, should be discussed with a qualified healthcare provider. management decisions, including termination of the , should not be based on the results of these tests alone. The healthcare provider is responsible for the use of this information in the management of their patient. Method See Notes [facility] Comment on above: Result Comment: (NOT E) Circulating cell-free DNA was purified from the plasma component of maternal blood. The extracted DNA was then converted into a genomic DNA library for aneuploidy analysis of chromosomes 21, 18, and 13 via next generation sequencing.[1] Optional findings based on the test order include sex chromosome aneuploidy (SCA), and enhanced sequencing series (ESS), which will only be reported on as an additional finding when an abnormality is detected. SCA testing includes information on X and Y representation, while ESS testing includes deletions in selected regions (22q, 15q, 11q, 8q, 5p, 4p, 1p) and trisomy of chromosomes 16 and 22. MT21 Approval See Notes [facility] Comment on above: Result Comment: (NOT E) Abdoul Sandoval MD, PhD, Director, [email or web address] MT21 Interpretation See Notes [facility] Comment on above: Result Comment: (NOT E) This specimen showed an expected representation of chromosome 21, 18 and 13 material. Clinical correlation is suggested. Performance See Notes [facility] Comment on above: Result Comment: (NOT E) The performance characteristics of the MaterniT(R) 21 PLUS laboratory-developed test (LDT) have been determined in a clinical validation study with women at increased risk for chromosomal aneuploidy.[1,2,3] The negative predictive value for trisomy 21, 18 and 13 is greater than 99%. Performance Data Note [facility] Comment on above: Result Comment: (NOT E) Trisomy 21 Sensitivity: 99.1%; CI: 96.3-99.8% Trisomy 21 Specificity: 99.9%; CI: 99.6-99.9% Trisomy 18 Sensitivity: >99.9%; CI: 92.4-100.0% Trisomy 18 Specificity: 99.6%; CI: 99.2-99.8% Trisomy 13 Sensitivity: 91.7%; CI: 59.7-99.6% Trisomy 13 Specificity: 99.7%; CI: 99.3-99.9% Y Chromosome Accuracy: 99.4%; CI: 99.0-99.6% References See Notes [facility] Comment on above: Result Comment: (NOT E) 1. Farrukh JETT et al. Joie Med. 2012;14(3):296-305. 2. Farrukh JETT et al. Joie Med. 2011;13(11):913-920. 3. Karoline SONI et al. Prenat Diag. 2013;33(6):591-597. 4. ACOG/SMFM Joint Committee Opinion No. 545, Apr 2012. Test Note See Notes [facility] Comment on above: Result Comment: (NOT E) This test was developed and its performance characteristics determined by [facility]. It has not been cleared or approved by the Food and Drug Administration. This laboratory is certified under the Clinical Laboratory Improvement Amendments (CLIA) as qualified to perform high complexity clinical laboratory testing and accredited by the [employer] (CAP). If there is future clinical need for adding MaterniT GENOME testing, this specimen will be available until term. [facility] samples will not be retained beyond 60 days. [facility] patients will have to send a new sample for re-sequencing ([facility] Test Code: [id number]). Y Chromosome Not Detected Normal [facility] Y Chromosome Interp See Notes Normal [facility] Comment on above: Result Comment: (NOT E) Consistent with a female fetus. PROGRESSon 04-26-2019 PROGRESS HNO ID: [id number] Author: Annetta Bergeron Service: ? Author Type: Physician Type: Progress Notes Filed: 04/26/2019 6:22 PM Note Text: The patient presents for requested ultrasound. Full report available in the Imaging tab in Epic Annetta Bergeron MD Normal [facility] URINE CULTUREon 04-22-2019 Bacteria identified Cx Nom (U) ORGANISM 1: STREPTOCOCCUS AGALACTIAE GRP.B COLONY COUNT: 10,000 ISOLATE COMMENT: CORRELATE FINDINGS TO CLINICAL SIGNIFICANCE SALAS TESTING COMMENT: SALAS TESTING WILL ONLY BE DONE ON REQUEST FOR THIS ORGANISM RECOMMENDED THERAPY: PEN G/ADD GENTAMICIN FOR SERIOUS GROUP B STREP INFECTIONS ALTERNATIVE THERAPY: ALL B LACTAMS, ERYTHROMYCIN, AZYTHROMYCIN, CLARYTHROMYCIN ORGANISM 2: ENTEROCOCCUS FAECALIS COLONY COUNT: 15,000 ISOLATE COMMENT: CORRELATE FINDINGS TO CLINICAL SIGNIFICANCE ENTEROCOCCUS FAECALIS: REACTION AMPICILLIN <=2 S DAPTOMYCIN 2 S CIPROFLOXACIN <=1 S NITROFURANTOIN <=32 S PENICILLIN 2 S RIFAMPIN >2 R TETRACYCLINE <=2 S VANCOMYCIN PC34 1 S LEVOFLOXACIN 2 S LINEZOLID 2 S Normal [facility] Comment on above: Result Comment: S = Susceptible I = Intermediate NS = Nonsusceptible R = Resistant R* = Predicted resistant interpretation EBL? = Suspected ESBL ESBL = Confirmed Extended Spectrum Beta-Lactamase N/R = NOT REPORTED CATHERINE = BETA LACTAMASE POSITIVE COST = COST CODE TFG = THYMIDINE DEPENDENT STRAIN SALAS = MCG/ML (MG/L) BLANK = DATA NOT AVAILABLE, OR DRUG NOT ADVISABLE/TESTED A) USE MAXIMUM DOSES OF DRUGS WITH AN AMINOGLYCOSIDE FOR P. AERUGINOSA IN PATIENTS WITH GRANULOCYTOPENIA OR SERIOUS INFECTIONS. B) BREAKPOINTS BASED ON PARENTERAL DOSE. FOR CEFUROXIME PO USE <8=S, 8-16=I, >16=R C) FOR STREPTOCOCCI AND NON-BETA LACTAMASE PRODUCING ENTEROCOCCI REFER TO PENICILLIN INTERPRETATION D) NITROFURANTOIN IS CONTRAINDICATED IN PATIENTS WITH CrCl<60 mL/min. E) IF KPC CONFIRMED, THIS ISOLATE DEMONSTRATES CARBAPENEMASE PRODUCTION. THE CLINICAL EFFICACY OF THE CARBAPENEMS HAS NOT BEEN ESTABLISHED FOR TREATING INFECTIONS CAUSED BY Enterobacteriaceae THAT TEST CARBAPENEM SUSCEPTIBILITY (eg. SALAS ertapenem < OR = 2 ug/mL,imipenem < or = 4 ug/mL, AND/OR meropenem < or = 4 ug/mL) BUT DEMONSTRATE CARBAPRENEMASE PRODUCTION in vitro. INTERPRETATIONS BASED ON APPROXIMATE ADULT ATTAINABLE SYSTEMIC/URINE LEVELS. DOSAGES ARE ONLY GUIDELINES; CONSIDER WEIGHT, ACUITY, AND RENAL/HEPATIC FUNCTION WHEN DETERMINING THERAPEUTIC DOSE. URINE INTERPRETATIONS ARE FOR LOWER UTI ONLY. INTERPRETATIONS BASED ON NCCLS B608-X16 MAY 2014 Performed By: #### M 100.69110, M100.00273 #### Test performed at: [place] [address] CHLAM/GCon 04-21-2019 CHLAM/GC METHOD: NUCLEIC ACID AMP Negative METHOD: NUCLEIC ACID AMP Negative Normal [facility] Comment on above: Performed By: #### M 100.39690, M100.24639 #### Test performed at: [address] [address] HEP B SURF AGon 04-21-2019 HEP B SURF AG Non Reactive Normal NonReactive [facility] Comment on above: Performed By: #### L 540.85203 #### Test performed at: [address] [address] HIV AG/AB COMBOon 04-21-2019 HIV AG/AB COMBO Non Reactive Normal NonReactive [facility] Comment on above: Result Comment: The HIV Ag/Ab Combo assay is a diagnostic immunoassay for the simultaneous qualitative detection of human immunodeficiency virus p24 antigen and antibodies to human immunodeficiency virus type 1 (including group O) and type 2. Performed By: #### L 540.60844 #### Test performed at: [address] [address] RUBELLA AB,IGGon 04-21-2019 RUBELLA AB,IGG 423.7 IU/mL Normal [facility] Comment on above: Result Comment: Non- immune <5.0 Equivocal 5.0 - 9.9 (Repeat testing suggested) Immune >9.9 Performed By: #### L 705.74405, L750.38563 #### Test performed at: [address] [address] TREP PALLID ABon 04-21-2019 TREP PALLID AB Non Reactive Normal Nonreactive [facility] Comment on above: Performed By: #### L 705.60590, L750.87571 #### Test performed at: [address] [address] ABO/RH REPEATon 04-20-2019 REPEAT TYPE Positive Normal [facility] Comment on above: Performed By: #### B 100.0260, B100.0950 #### Test performed at: [address] [address] CBC W/DIFFon 04-20-2019 BASO ABS 0.0 K/uL Normal 0.0-0.2 [facility] Comment on above: Performed By: #### L 200.75760 #### Test performed at: [address] [address] Basophils/100 WBC (Bld) 0.7 % Normal [facility] Comment on above: Performed By: #### L 200.48813 #### Test performed at: [address] [address] EOS ABS 0.1 K/uL Normal 0.0-0.5 [facility] Comment on above: Performed By: #### L 200.00374 #### Test performed at: [address] [address] Eosinophils/100 WBC (Bld) 1.8 % Normal [facility] Comment on above: Performed By: #### L 200.96560 #### Test performed at: [address] [address] IG % 2.5 % Normal [facility] Comment on above: Performed By: #### L 200.32458 #### Test performed at: [address] [address] IG ABS 0.14 K/uL High 0-0.05 [facility] Comment on above: Performed By: #### L 200.60183 #### Test performed at: [address] [address] Lymphocytes (Bld) [#/Vol] 1.8 10*3/uL Normal 1.2-3.5 [facility] Comment on above: Performed By: #### L 200.22925 #### Test performed at: [address] [address] Lymphocytes/100 WBC (Bld) 32.1 % Normal [facility] Comment on above: Performed By: #### L 200.47533 #### Test performed at: [address] [address] MONO ABS 0.5 K/uL Normal 0.0-1.0 [facility] Comment on above: Performed By: #### L 200.98012 #### Test performed at: [address] [address] Monocytes/100 WBC (Bld) 9.6 % Normal [facility] Comment on above: Performed By: #### L 200.13051 #### Test performed at: [address] [address] NEUTROPHIL ABS 2.9 K/uL Normal 1.4-6.6 [facility] Comment on above: Performed By: #### L 200.07788 #### Test performed at: [address] [address] Neutrophils/100 WBC (Bld) 53.3 % Normal [facility] Comment on above: Performed By: #### L 200.93271 #### Test performed at: [address] [address] Erythrocyte distribution width (RBC) [Ratio] 11.7 % Normal 11.5-14.5 [facility] Comment on above: Performed By: #### L 200.99936 #### Test performed at: [address] [address] Hematocrit (Bld) [Volume fraction] 32.5 % Low 36.0-48.0 [facility] Comment on above: Performed By: #### L 200.99133 #### Test performed at: [address] [address] Hemoglobin (Bld) [Mass/Vol] 10.7 g/dL Low 12.0-15.0 [facility] Comment on above: Performed By: #### L 200.42059 #### Test performed at: [place] [address] MCH (RBC) [Entitic mass] 28.4 pg Normal 25.4-34.6 [facility] Comment on above: Performed By: #### L 200.89047 #### Test performed at: [place] [address] MCHC (RBC) [Mass/Vol] 32.9 g/dL Normal 31.5-36.5 [facility] Comment on above: Performed By: #### L 200.81018 #### Test performed at: [place] [address] MCV (RBC) [Entitic vol] 86.2 fL Normal 79.0-98.0 [facility] Comment on above: Performed By: #### L 200.96233 #### Test performed at: [place] [address] NRBC # 0.000 K/uL Normal 0-0.012 [facility] Comment on above: Performed By: #### L 200.41094 #### Test performed at: [place] [address] NRBC % 0.0 /100 WBC Normal 0-0.2 [facility] Comment on above: Performed By: #### L 200.94081 #### Test performed at: [place] [id number] Platelet mean volume (Bld) [Entitic vol] 10.1 fL Normal 8.7-12.4 [facility] Comment on above: Performed By: #### L 200.51139 #### Test performed at: [address] [address] Platelets (Bld) [#/Vol] 291 10*3/uL Normal 140-440 [facility] Comment on above: Performed By: #### L 200.72495 #### Test performed at: [address] [address] RBC (Bld) [#/Vol] 3.77 10*6/uL Normal 3.5-5.5 [facility] Comment on above: Performed By: #### L 200.66034 #### Test performed at: [address] [address] WBC (Bld) [#/Vol] 5.5 10*3/uL Normal 3.9-11.0 [facility] Comment on above: Performed By: #### L 200.91410 #### Test performed at: [address] [address] LIMIT UR TOXon 04-20-2019 UR AMPH Negative Normal Negative [facility] Comment on above: Result Comment: CUTO AK=4730 Performed By: #### L 600.93940 #### Test performed at: [address] [address] UR WILLIAMS Negative Normal Negative [facility] Comment on above: Result Comment: CUTO VQ=547 Performed By: #### L 600.62211 #### Test performed at: [address] [address] UR CHIDI Negative Normal Negative [facility] Comment on above: Result Comment: CUTO PF=399 Performed By: #### L 600.75386 #### Test performed at: [address] [address] UR BUPREN/NORBU Negative Normal Negative [facility] Comment on above: Result Comment: CUTO FF=10 Performed By: #### L 600.24665 #### Test performed at: [place] [id number] UR NOHEMI/THC Negative Normal Negative [facility] Comment on above: Result Comment: CUTO FF=50 Performed By: #### L 600.80553 #### Test performed at: [place] [address] UR INDIRA Negative Normal Negative [facility] Comment on above: Result Comment: CUTO SM=815 Performed By: #### L 600.59514 #### Test performed at: [place] [address] UR ECSTASY Negative Normal Negative [facility] Comment on above: Result Comment: CUTO JO=581 Performed By: #### L 600.62648 #### Test performed at: [place] [address] UR FENTANYL Negative Normal Negative [facility] Comment on above: Result Comment: CUTO CG=8445 Performed By: #### L 600.34717 #### Test performed at: [place] [address] UR METH Negative Normal Negative [facility] Comment on above: Result Comment: CUTO DI=692 Performed By: #### L 600.39448 #### Test performed at: [place] [id number] UR OPIAT Negative Normal Negative [facility] Comment on above: Result Comment: CUTO JP=854 Performed By: #### L 600.70216 #### Test performed at: [place] [address] UR OXYCOCONE Negative Normal Negative [facility] Comment on above: Result Comment: CUTO XZ=795 Performed By: #### L 600.27500 #### Test performed at: [place] [address] UR PCP Negative Normal Negative [facility] Comment on above: Result Comment: CUTO FF=25 Performed By: #### L 600.18734 #### Test performed at: [place] [address] PH TOX 5.0 Normal 5.0-8.0 [facility] Comment on above: Performed By: #### L 600.03495 #### Test performed at: [place] [address] TOX COMMENT *PLEASE NOTE: Normal [facility] Comment on above: Result Comment: UNCO NFIRMED Toxicology results. For MEDICAL purposes only. Performed By: #### L 600.05687 #### Test performed at: [place] [address] PRENon 04-20-2019 ABO and Rh group Nom (Bld) A POSITIVE Normal [facility] Comment on above: Performed By: #### B 100.0260, B100.0950 #### Test performed at: [place] [address] RHIG INTERP NOT a RhIG candidate Normal [facility] Comment on above: Performed By: #### B 100.0260, B100.0950 #### Test performed at: [place] [address] ABO/RHon 03-04-2019 Sodium [Moles/Vol] A [place] Sodium [Moles/Vol] Positive [place] Comment on above: Test Performed by [facility], [address] [place] [address] Test Performed by [facility], [address] [place] [address] [place] CBC Auto Differentialon 02-16 Absolute Baso # 0.0 10*3/uL 0 - 0.2 10*3/uL [place] Absolute Neut # 3.9 10*3/uL 1.8 - 7 10*3/uL [place] Basophils/100 WBC (Bld) 0.5 % 0 - 2 % [place] Eosinophils (Bld) [#/Vol] 0.0 10*3/uL 0 - 0.5 10*3/uL [place] Eosinophils/100 WBC (Bld) 0.6 % Low 1 - 6 % [place] Erythrocyte distribution width (RBC) [Ratio] 12.9 % 11.5 - 14.5 % [place] Granulocytes/100 WBC (Bld) 62.4 % 40 - 80 % [place] Hematocrit (Bld) [Volume fraction] 36.8 % 35 - 47 % [place] Hemoglobin (Bld) [Mass/Vol] 12.5 g/dL 11.7 - 16 g/dL [place] Interpretation and review of laboratory results Abnormal [place] Lymphocytes (Bld) [#/Vol] 1.8 10*3/uL 1 - 4.3 10*3/uL [place] Lymphocytes/100 WBC (Bld) 29.0 % 20 - 40 % [place] MCH (RBC) [Entitic mass] 29.1 pg 26 - 34 pg [place] MCHC (RBC) [Mass/Vol] 34.0 % 32 - 36 % [place] MCV (RBC) [Entitic vol] 85.7 fL 79 - 98 fL [place] Monocytes (Bld) [#/Vol] 0.5 10*3/uL 0 - 0.8 10*3/uL [place] Monocytes/100 WBC (Bld) 7.5 % 2 - 10 % [place] Platelet mean volume (Bld) [Entitic vol] 7.0 fL Low 7.4 - 10.4 fL [place] Platelets (Bld) [#/Vol] 321 10*3/uL 140 - 440 10*3/uL [place] RBC (Bld) [#/Vol] 4.29 10*6/uL 3.8 - 5.2 10*6/uL [place] WBC (Bld) [#/Vol] 6.2 10*3/uL 3.6 - 10.7 10*3/uL [place] Test Performed by [facility], [address] [place] [address] [place] HCG, QUANTITATIVE, on 03-04-2019 hCG Quant 304 m[IU]/mL Abnormal <3 [place], [place] Interpretation and review of laboratory results Abnormal [place] Test Performed by [facility], [address] [place] [address] [place] US OB TRANSVAGINALon 019 Patient Name: SELENE LARKIN ---Ultrasound--- Exam Date/Time 03/04/2019 16:28:46 EDT Exam US Transvaginal Ordering Physician [id number] -MCKENNA RECINOS Accession Number [id number] CPT4 Codes 33351 () Reason For Exam Left pelvic pain with positive test Report Indication: Left lower quadrant pain. . FINDINGS: Transvaginal sonography shows presumed gestational sac diameter 22 mm. No cardiac activity. No yolk sac. No pole. Uterus 7.8 x 4.4 x 3.7 cm anteverted. Endometrial 5 mm. Free fluid noted. Left ovary 3.1 x 1.7 x 1.6 cm, right ovary 4.0 x 3.1 x 2.4 cm. Complex cystic area, irregular measuring 1.4 cm on the right ovary. IMPRESSION: No definite intrauterine seen. Possible gestational sac. Complex structure right ovary of uncertain significance. Free fluid may be related. This patient may benefit from continued follow-up and correlation with laboratory values. Report Dictated on --- Final --- Dictated: 03/04/2019 4:32 pm Dictating Physician: MD MARIEE JOHN Signed Date and Time: 03/04/2019 4:34 pm Signed by: MD MARIEE JOHN Transcribed Date and Time: 03/04/2019 4:32 [place], [place] Charan, [facility] Incoming Radiology Results From [facility] 03/04/2019 4:35 PM EDT Patient Name: SELENE LARKIN ---Ultrasound--- Exam Date/Time 03/04/2019 16:28:46 EDT Exam US Transvaginal Ordering Physician [id number] MCKENNA ELIZABETH Accession Number [id number] CPT4 Codes 65893 () Reason For Exam Left pelvic pain with positive test Report Indication: Left lower quadrant pain. . FINDINGS: Transvaginal sonography shows presumed gestational sac diameter 22 mm. No cardiac activity. No yolk sac. No pole. Uterus 7.8 x 4.4 x 3.7 cm anteverted. Endometrial 5 mm. Free fluid noted. Left ovary 3.1 x 1.7 x 1.6 cm, right ovary 4.0 x 3.1 x 2.4 cm. Complex cystic area, irregular measuring 1.4 cm on the right ovary. IMPRESSION: No definite intrauterine seen. Possible gestational sac. Complex structure right ovary of uncertain significance. Free fluid may be related. This patient may benefit from continued follow-up and correlation with laboratory values. Report Dictated on --- Final --- Dictated: 03/04/2019 4:32 pm Dictating Physician: MD MARIEE JOHN Signed Date and Time: 03/04/2019 4:34 pm Signed by: MD MARIEE JOHN Transcribed Date and Time: 03/04/2019 4:32 [place] Urinalysison 03-04-2019 Appearance (U) Clear [place], [place] Comment on above: Reference Range: Matthieu ar Bilirubin Urine Negative mg/dL [place], [place] Comment on above: Reference Range: Neg ative Color (U) LIGHT YELLOW [place], [place] Comment on above: Reference Range: Lt. Yellow Glucose, Ur Normal mg/dL [place] Comment on above: Reference Range: Nor mal (<70) Ketones Ql (U) 10 mg/dL [place] Comment on above: Reference Range: Neg ative LEUKOCYTES, UA Negative Marleni/uL [place] Comment on above: Reference Range: Neg ative Nitrite, Urine Negative [place] Comment on above: Reference Range: Neg ative Occult Blood,Urine Negative mg/dL [place], [place] Comment on above: Reference Range: Neg ative pH (U) 5.5 [pH] [place] Protein (U) [Mass/Vol] Negative mg/dL [place] Comment on above: Reference Range: Neg ative Specific [place], Urine 1.014 [place] Urobilinogen, Urine Normal mg/dL [place] Comment on above: Reference Range: Nor mal (0-1) Volume 12 ml [place] Test Performed by [facility], [address] [place] [id number] [place] [address] [place] HYSTEROSCOPYon 02-25-2019 Patient Name: SELENE LARKIN ---Fluoroscopy--- Exam Date/Time 02/25/2019 08:35:13 EDT Exam RF Hysterosalpingography S/I Ordering Physician Madisyn ALVAREZ, [facility] Accession Number [id number] [email or web address] Codes 72917 () Reason For Exam infertilty Report EXAMINATION: Hysterosalpingogram. REASON FOR STUDY: Infertility. History laparoscopy FLUOROSCOPY TIME: 0.5 minutes FLUOROSCOPIC EXPOSURES: 4 Technique/FINDINGS: Approximately 7 mL of Isovue-300 were injected through the cervical canal. There is normal opacification of the uterus which appears normal in configuration. No significant intrauterine abnormality is otherwise identified. The fallopian tubes opacify normally and appear normal in configuration. There is free spillage bilaterally. CONCLUSION: Negative study. Report Dictated on --- Final --- Dictated: 02/25/2019 9:04 am Dictating Physician: MD BOYLE B NELSON Signed Date and Time: 02/25/2019 9:29 am Signed by: MD BOYLE B NELSON Transcribed Date and Time: 02/25/2019 9:06 [place], [place] [facility], [facility] Incoming Radiology Results From [facility] - 02/25/2019 9:30 AM EDT Patient Name: SELENE LARKIN ---Fluoroscopy--- Exam Date/Time 02/25/2019 08:35:13 EDT Exam RF Hysterosalpingography S/I Ordering Physician Madisyn ALVAREZ, [facility] Accession Number [id number] [facility] Codes 73556 () Reason For Exam infertilty Report EXAMINATION: Hysterosalpingogram. REASON FOR STUDY: Infertility. History laparoscopy FLUOROSCOPY TIME: 0.5 minutes FLUOROSCOPIC EXPOSURES: 4 Technique/FINDINGS: Approximately 7 mL of Isovue-300 were injected through the cervical canal. There is normal opacification of the uterus which appears normal in configuration. No significant intrauterine abnormality is otherwise identified. The fallopian tubes opacify normally and appear normal in configuration. There is free spillage bilaterally. CONCLUSION: Negative study. Report Dictated on --- Final --- Dictated: 02/25/2019 9:04 am Dictating Physician: MD BOYLE B NELSON Signed Date and Time: 02/25/2019 9:29 am Signed by: MD BOYLE B NELSON Transcribed Date and Time: 02/25/2019 9:06 [facility] [place], [place] HCG,Totalon 02-24-2019 HCG Qn m[IU]/mL Normal [facility] Comment on above: Result Comment: Male < or = 1 Non- female 1-3 Gestational Age: 0.2-1 Week 5 - 50 1-2 Weeks 50 - 500 2-3 Weeks 100 - 5000 3-4 Weeks 500 - [address]337 4-5 weeks 1000 - [address] 5-6 weeks [address] - 100,000 6-8 weeks [address] - 200,000 2-3 months [address] - 100,000 Performed By: #### H CG #### [place] [address] Other 04-22-2012 CONVERTED ELECTRONIC SIGNATURE SUMI HOYOS M.D., PATHOLOGIST (Electronic signature on file) Final Signed Out: 04/22/2012 14:32 [place] CONVERTED FINAL DIAGNOSIS Relevant History: LMP: 03/25/2012 Contraceptive: Oral Comment: Please do an HPV reflex test if ASCUS. SPECIMEN ADEQUACY SATISFACTORY FOR EVALUATION. ENDOCERVICAL/TRANSFORMA TION ZONE COMPONENTS PRESENT. GENERAL CATEGORIZATION NEGATIVE FOR INTRAEPITHELIAL LESION OR MALIGNANCY. INTERPRETATION/RESULT REACTIVE CELLULAR CHANGES ASSOCIATED WITH INFLAMMATION OR REPAIR. [place] CONVERTED GROSS DESCRIPTION SPECIMEN: THIN PREP CERVICAL/ENDOCERVICAL [place] CONVERTED ORDERING PROVIDER Ordering Provider: GASTON MAY [place] CONVERTED PAP DISCLAIMER The Pap test serves as a screening tool for early detection of cervical cancer. The Pap test does not represent a final diagnostic test for cervical cancer. Furthermore, the Pap test was not designed to screen for other malignancies (endometrial, ovarian cancer, etc....). False negatives and false positives have occurred. If clinically indicated, further patient evaluation is recommended. [place] Vital Signs Date Time Vital Sign Value Performing Clinician Facility 01-11-2025 14:18-0400 Body height 160.[address] Abdirahman Olivera DO Work Phone: [facility] 01-11-2025 14:18-0400 Body mass index (BMI) [Ratio] 26 kg/m2 Dr. Abdirahman Olivera DO Work Phone: [facility] 01-11-2025 14:18-0400 Body weight 66.[address] Abdirahman Olivera DO Work Phone: [facility] 01-11-2025 14:18-0400 Diastolic blood pressure 93 mm[Hg] Dr. Abdirahman Olivera DO Work Phone: [facility] 01-11-2025 14:18-0400 Heart rate 72 /min Dr. Abdirahman Olivera DO Work Phone: [facility] 01-11-2025 14:18-0400 Systolic blood pressure 138 mm[Hg] Dr. Abdirahman Olivera DO Work Phone: [facility] 01-05-2025 18:02-0400 Body temperature 97.4 [degF] Dr. Abdirahman Olivera DO Work Phone: [facility] 01-05-2025 18:02-0400 Diastolic blood pressure 79 mm[Hg] Dr. Abdirahman Olivera DO Work Phone: [facility] 01-05-2025 18:02-0400 Heart rate 89 /min Dr. Abdirahman Olivera DO Work Phone: [facility] 01-05-2025 18:02-0400 Respiratory rate 16 /min Dr. Abdirahman Olivera DO Work Phone: [facility] 01-05-2025 18:02-0400 SaO2% (BldA) [Mass fraction] 98 % Dr. Abdirahman Olivera DO Work Phone: [facility] 01-05-2025 18:02-0400 Systolic blood pressure 117 mm[Hg] Dr. Abdirahman Olivera DO Work Phone: [facility] 01-05-2025 14:14-0400 Body height 160.[address] Abdirahman Olivera DO Work Phone: [facility] 01-05-2025 14:14-0400 Body mass index (BMI) [Ratio] 25.7 kg/m2 Dr. Abdirahman Olivera DO Work Phone: [facility] 01-05-2025 14:14-0400 Body weight 65.[address] Abdirahman Olivera DO Work Phone: [facility] 12-28-2024 18:28-0400 Body mass index (BMI) [Ratio] 26.04 kg/m2 Herlinda DON Work Phone: [place] 12-28-2024 18:28-0400 Body temperature 99 [degF] Herlinda DON Work Phone: [place] 12-28-2024 18:28-0400 Body weight 66.68 kg Herlinda DON Work Phone: [place] 12-28-2024 18:28-0400 Diastolic blood pressure 75 mm[Hg] Herlinda DON Work Phone: [place] 12-28-2024 18:28-0400 Heart rate 73 /min Herlinda DON Work Phone: [place] 12-28-2024 18:28-0400 Respiratory rate 20 /min Herlinda Smith PA Work Phone: [place] 12-28-2024 18:28-0400 SaO2% (BldA) [Mass fraction] 98 % Herlinda DON Work Phone: [place] 12-28-2024 18:28-0400 Systolic blood pressure 112 mm[Hg] Herlinda DON Work Phone: [place] 07-17-2023 09:30-0500 Body temperature 97.5 [degF] [facility] 07-17-2023 09:30-0500 Diastolic blood pressure 63 mm[Hg] [facility] 07-17-2023 09:30-0500 Heart rate 60 /min [facility] 07-17-2023 09:30-0500 Respiratory rate 14 /min [facility] 07-17-2023 09:30-0500 SaO2% (BldA) [Mass fraction] 99 % [facility] 07-17-2023 09:30-0500 Systolic blood pressure 96 mm[Hg] [facility] 07-17-2023 06:53-0500 Body height 160.02 cm [facility] 07-17-2023 06:53-0500 Body mass index (BMI) [Ratio] 28.8 kg/m2 [facility] 07-17-2023 06:53-0500 Body weight 73.75 kg [facility] 02-07-2023 14:00-0400 Body temperature 97.88 [degF] BRANDO REGALADO DO [facility] 02-07-2023 14:00-0400 Diastolic Blood Pressure Non-Invasive 56 1 BRANDO REGALADO DO [facility] 02-07-2023 14:00-0400 Heart rate 67 /min BRANDO REGALADO DO [facility] 02-07-2023 14:00-0400 Respiratory rate 18 /min BRANDO REGALADO DO [facility] 02-07-2023 14:00-0400 Systolic Blood Pressure Non-Invasive 106 1 BRANDO REGALADO DO [facility] 02-07-2023 10:00-0400 Diastolic Blood Pressure Non-Invasive 55 1 BRANDO REGALADO DO [facility] 02-07-2023 10:00-0400 Heart rate 73 /min BRANDO REGALADO DO [facility] 02-07-2023 10:00-0400 Systolic Blood Pressure Non-Invasive 111 1 BRANDO REGALADO DO [facility] 02-07-2023 08:00-0400 Body temperature 98.24 [degF] BRANDO REGALADO DO [facility] 02-07-2023 08:00-0400 Diastolic Blood Pressure Non-Invasive 61 1 BRANDO REGALADO DO [facility] 02-07-2023 08:00-0400 Heart rate 77 /min BRANDO REGALADO DO [facility] 02-07-2023 08:00-0400 Systolic Blood Pressure Non-Invasive 108 1 BRANDO REGALADO DO [facility] 02-07-2023 02:59-0400 Body temperature 98.06 [degF] BRANDO REGALADO DO [facility] 02-06-2023 22:34-0400 Heart rate 70 /min BRANDO REGALADO DO [facility] 02-06-2023 17:08-0400 Reason For Taking VItal Signs BRANDO REGALADO DO [facility] 02-06-2023 13:50-0400 Respiratory Rate - Anes 19 br/min BRANDOOBED VILLATOROOCK DO [facility] 02-06-2023 13:45-0400 Body temperature 96.8 [degF] BRANDO SHEROCK DO [facility] 02-06-2023 13:45-0400 Respiratory Rate - Anes 18 br/min BRANDO SHEROCK DO [facility] 02-06-2023 13:40-0400 Respiratory Rate - Anes 18 br/min BRANDO SHAUNAOCK DO [facility] 02-06-2023 13:30-0400 Body temperature 96.8 [degF] BRANDO SHEROCK DO [facility] 02-06-2023 13:15-0400 Body temperature 96.8 [degF] BRANDO SHEROCK DO [facility] 02-06-2023 09:36-0400 Body height 160 cm BRANDOOBED VILLATOROOCK DO [facility] 02-06-2023 09:36-0400 Body weight 84.1 kg BRANDOOBED VILLATOROOCK DO [facility] 02-06-2023 09:36-0400 Body weight 32.85 kg/m2 BRANDOOBED VILLATOROOCK DO [facility] 01-30-2023 01:10-0400 Heart rate 80 /min Abiola Gonzalez [facility] 01-30-2023 01:09-0400 Body temperature 98.29 [degF] Abiolarocio Gonzalez [facility] 01-30-2023 01:09-0400 Diastolic blood pressure 63 mm[Hg] [facility] 01-30-[facility]23 01:09-0400 Systolic blood pressure 111 mm[Hg] Abiola Gonzalez [facility] 01-22-2023 21:30-0400 Body temperature 98.06 [degF] BRANDO REGALADO DO [facility] 01-22-2023 18:46-0400 Body height 160 cm BRANDO REGALADO DO [facility] 01-22-2023 18:46-0400 Body weight 84 kg BRANDO REGALADO DO [facility] 01-22-2023 18:46-0400 Body weight 32.81 kg/m2 BRANDO REGALADO DO [facility] 01-22-2023 18:44-0400 Body temperature 98.06 [degF] BRANDO REGALADO DO [facility] 01-22-2023 18:44-0400 Diastolic Blood Pressure Non-Invasive 58 1 BRANDO REGALADO DO [facility] 01-22-2023 18:44-0400 Heart rate 79 /min BRANDO REGALADO DO [facility] 01-22-2023 18:44-0400 Respiratory rate 18 /min BRANDO REGALADO DO [facility] 01-22-2023 18:44-0400 Systolic Blood Pressure Non-Invasive 115 1 BRANDO REGALADO DO [facility] 01-12-2023 15:44-0400 Diastolic Blood Pressure Non-Invasive 50 1 DAVID SANDOVAL MD [facility] 01-12-2023 15:44-0400 Heart rate 84 /min DAVID SANDOVAL MD [facility] 01-12-2023 15:44-0400 Respiratory rate 16 /min DAVID SANDOVAL MD [facility] 01-12-2023 15:44-0400 Systolic Blood Pressure Non-Invasive 107 1 DAVID SANDOVAL MD [facility] 01-12-2023 15:39-0400 Body temperature 97.88 [degF] DAVID SANDOVAL MD [facility] 01-12-2023 15:35-0400 Body height 160 cm DAVID SANDOVAL MD [facility] 01-12-2023 15:35-0400 Body weight 82 kg DAVID SANDOVAL MD [facility] 01-12-2023 15:35-0400 Body weight 32.03 kg/m2 ADVID SANDOVAL MD [facility] 01-08-2023 21:46-0400 Diastolic Blood Pressure Non-Invasive 46 1 JOLIE CONTEH LEAF CONDITIONER-CNM [facility] 01-08-2023 21:46-0400 Heart rate 78 /min JOLIE CONTEH LEAF CONDITIONER-CNM [facility] 01-08-2023 21:46-0400 Respiratory rate 18 /min JOLIE CONTEH LEAF CONDITIONER-CNM [facility] 01-08-2023 21:46-0400 Systolic Blood Pressure Non-Invasive 97 1 JOLIE CONTEH LEAF CONDITIONER-CNM [facility] 01-08-2023 20:32-0400 Diastolic Blood Pressure Non-Invasive 55 1 JOLIE CONTEH LEAF CONDITIONER-CNM [facility] 01-08-2023 20:32-0400 Heart rate 72 /min JOLIE CONTEH LEAF CONDITIONER-CNM [facility] 01-08-2023 20:32-0400 Reason For Taking VItal Signs JOLIE CONTEH APRN-CNM [facility] 01-08-2023 20:32-0400 Systolic Blood Pressure Non-Invasive 112 1 JOLIE CONTEH APRN-CNM [facility] 01-08-2023 20:30-0400 Body height 160 cm JOLIE CONTEH APRN-CNM [facility] 01-08-2023 20:30-0400 Body weight 72.7 kg JOLIE CONTEH APRN-CNM [facility] 01-08-2023 20:30-0400 Body weight 28.4 kg/m2 JOLIE FALLCNQuiana [facility] 12-17-2022 11:00-0400 Heart rate 86 /min Supriya Vivar MD Work Phone: [facility] 12-17-2022 09:34-0400 Body height 160 cm Supriya Vivar MD Work Phone: [facility] 12-17-2022 09:34-0400 Body mass index (BMI) [Ratio] 32.06 kg/m2 Supriya Vivar MD Work Phone: [facility] 12-17-2022 09:34-0400 Body temperature 98.01 [degF] Supriya Vivar MD Work Phone: [facility] 12-17-2022 09:34-0400 Body weight 82.1 kg Supriya Vivar MD Work Phone: [facility] 12-17-2022 09:34-0400 Diastolic blood pressure 58 mm[Hg] Supriya Vivar MD Work Phone: [facility] 12-17-2022 09:34-0400 Respiratory rate 18 /min Supriya Vivar MD Work Phone: [facility] 12-17-2022 09:34-0400 Systolic blood pressure 104 mm[Hg] Supriya Vivar MD Work Phone: [facility] 11-19-2022 18:45-0400 Body height [address] KO KENNEDY DO [facility] 11-19-2022 18:45-0400 Body weight 79.[address] KO KENNEDY DO [facility] 11-19-2022 18:45-0400 Body weight 31.05 kg/m2 DR KO KENNEDY DO [facility] 11-19-2022 18:42-0400 Body temperature 98.24 [degF] DR KO KENNEDY DO [facility] 11-19-2022 18:42-0400 Diastolic Blood Pressure Non-Invasive [address] KO KENNEDY DO [facility] 11-19-2022 18:42-0400 Heart rate 79 /min DR KO KENNEDY DO [facility] 11-19-2022 18:42-0400 Respiratory rate 18 /min DR KO KENNEDY DO [facility] 11-19-2022 18:42-0400 Systolic Blood Pressure Non-Invasive [address] KO KENNEDY DO [facility] 10-28-2022 13:17-0400 Body height 160 cm Moses Holden MD Work Phone: [facility] 10-28-2022 13:17-0400 Body mass index (BMI) [Ratio] 31 kg/m2 Moses Holden MD Work Phone: [facility] 10-28-2022 13:17-0400 Body temperature 98.71 [degF] Moses Holden MD Work Phone: [facility] 10-28-2022 13:17-0400 Body weight 79.38 kg Moses Holden MD Work Phone: [facility] 10-28-2022 13:17-0400 Diastolic blood pressure 52 mm[Hg] Moses Holden MD Work Phone: [facility] 10-28-2022 13:17-0400 Heart rate 81 /min Moses Holden MD Work Phone: [facility] 10-28-2022 13:17-0400 Respiratory rate 18 /min Moses Holden MD Work Phone: [facility] 10-28-2022 13:17-0400 SaO2% (BldA) [Mass fraction] 96 % Moses Holden MD Work Phone: [facility] 10-28-2022 13:17-0400 Systolic blood pressure 98 mm[Hg] Moses Holden MD Work Phone: [facility] 10-19-2022 19:29-0400 Body temperature 97.88 [degF] BRANDOOBED VILLATOROCURTIS DO [facility] 10-19-2022 19:29-0400 Diastolic Blood Pressure Non-Invasive 56 1 BRANDOOBED REGALADO DO [facility] 10-19-2022 19:29-0400 Heart rate 78 /min BRANDO REGALADO DO [facility] 10-19-2022 19:29-0400 Respiratory rate 18 /min BRANDO SHAUNACURTIS DO [facility] 10-19-2022 19:29-0400 Systolic Blood Pressure Non-Invasive 110 1 BRANDO SHEROCK DO [facility] 10-19-2022 18:29-0400 Body temperature 98.42 [degF] BRANDO VILLATOROOCK DO [facility] 10-19-2022 18:29-0400 Diastolic Blood Pressure Non-Invasive 59 1 BRANDO VILLATOROOCK DO [facility] 10-19-2022 18:29-0400 Heart rate 82 /min BRANDO VILLATOROOCK DO [facility] 10-19-2022 18:29-0400 Respiratory rate 18 /min BRANDO REGALADO DO [facility] 10-19-2022 18:29-0400 Systolic Blood Pressure Non-Invasive 112 1 BRANDO REGALADO DO [facility] 10-19-2022 18:18-0400 Body height 160 cm BRANDO REGALADO DO [facility] 10-19-2022 18:18-0400 Body weight 75 kg BRANDO REGALADO DO [facility] 10-19-2022 18:18-0400 Body weight 29.3 kg/m2 BRANDO REGALADO DO [facility] 09-30-2022 10:14-0400 Body temperature 98.42 [degF] EDDIE NICOLE MD [facility] 09-30-2022 10:14-0400 Diastolic Blood Pressure Non-Invasive 53 1 EDDIE NICOLE MD [facility] 09-30-2022 10:14-0400 Heart rate 80 /min EDDIE NICOLE MD [facility] 09-30-2022 10:14-0400 Respiratory rate 20 /min EDDIE NICOLE MD [facility] 09-30-2022 10:14-0400 Systolic Blood Pressure Non-Invasive 107 1 EDDIE NICOLE MD [facility] 09-30-2022 10:03-0400 Body height 160 cm EDDIE NICOLE MD [facility] 09-30-2022 10:03-0400 Body weight 75 kg EDDIE NICOLE MD [facility] 09-30-2022 10:03-0400 Body weight 29.3 kg/m2 EDDIE NICOLE MD [facility] 09-24-2022 15:40-0400 Diastolic blood pressure 67 mm[Hg] Mahad Smith DO Work Phone: [facility] 09-24-2022 15:40-0400 Heart rate 77 /min Mahad Smith DO Work Phone: [employer] 09-24-2022 15:40-0400 Respiratory rate 18 /min Mahad Smith DO Work Phone: [employer] 09-24-2022 15:40-0400 SaO2% (BldA) [Mass fraction] 100 % Mahad Smith DO Work Phone: [employer] 09-24-2022 15:40-0400 Systolic blood pressure 110 mm[Hg] Mahad Smith DO Work Phone: [employer] 09-24-2022 12:54-0400 Body temperature 98.1 [degF] Mahad Smith DO Work Phone: [employer] 09-24-2022 11:55-0400 Body temperature 98.42 [degF] EDDIE NICOLE MD [facility] 09-24-2022 11:55-0400 Diastolic Blood Pressure Non-Invasive 58 1 EDDIE NICOLE MD [facility] 09-24-2022 11:55-0400 Heart rate 71 /min EDDIE NICOLE MD [facility] 09-24-2022 11:55-0400 Respiratory rate 18 /min EDDIE NICOLE MD [facility] 09-24-2022 11:55-0400 Systolic Blood Pressure Non-Invasive 107 1 EDDIE NICOLE MD [facility] 09-24-2022 11:49-0400 Body height 160 cm EDDIE NICOLE MD [facility] 09-24-2022 11:49-0400 Body weight 75 kg EDDIE NICOLE MD [facility] 09-24-2022 11:49-0400 Body weight 29.3 kg/m2 EDDIE NICOLE MD [facility] 08-12-2022 17:08-0400 Body height 160 cm Perry Perea Jr., MD [facility] 08-12-2022 17:08-0400 Body mass index (BMI) [Ratio] 28.34 kg/m2 Perry Perea Jr., MD [facility] 08-12-2022 17:08-0400 Body temperature 98.6 [degF] Perry Perea Jr., MD [facility] 08-12-2022 17:08-0400 Body weight 72.58 kg Perry Perea Jr., MD [facility] 08-12-2022 17:08-0400 Diastolic blood pressure 64 mm[Hg] Perry Perea Jr., MD [facility] 08-12-2022 17:08-0400 Heart rate 83 /min Perry Perea Jr., MD [facility] 08-12-2022 17:08-0400 Respiratory rate 18 /min Perry Perea Jr., MD [facility] 08-12-2022 17:08-0400 SaO2% (BldA) [Mass fraction] 100 % Perry Perea Jr., MD [facility] [employer] 08-12-2022 17:08-0400 Systolic blood pressure 114 mm[Hg] Perry Perea Jr., MD [facility] [employer] 07-31-2022 13:01-0400 Body height 160 cm Mahad Castillo DO Work Phone: [facility] [employer] 07-31-2022 13:01-0400 Body mass index (BMI) [Ratio] 28.7 kg/m2 Mahad Galiciai DO Work Phone: [employer] 07-31-2022 13:01-0400 Body weight 73.48 kg Mahad Castillo DO Work Phone: [facility] [employer] 07-31-2022 12:24-0400 Body temperature 97.39 [degF] Mahad Galiciai DO Work Phone: [facility] [employer] 07-31-2022 12:24-0400 Diastolic blood pressure 71 mm[Hg] Mahad Galiciai DO Work Phone: [employer] 07-31-2022 12:24-0400 Heart rate 78 /min Mahad Galiciai DO Work Phone: [facility] [employer] 07-31-2022 12:24-0400 Respiratory rate 14 /min Mahad Galiciai DO Work Phone: [facility] [employer] 07-31-2022 12:24-0400 SaO2% (BldA) [Mass fraction] 100 % Mahad Galiciai DO Work Phone: [employer] 07-31-2022 12:24-0400 Systolic blood pressure 123 mm[Hg] Mahad Sheaski DO Work Phone: [employer] 06-28-2022 21:27-0500 Diastolic blood pressure 78 mm[Hg] Perry Perea Jr., MD [facility] [employer] 06-28-2022 21:27-0500 Heart rate 78 /min Perry Perea Jr., MD [facility] 06-28-2022 21:27-0500 Respiratory rate 16 /min Perry Perea Jr., MD [facility] 06-28-2022 21:27-0500 SaO2% (BldA) [Mass fraction] 99 % Perry Perea Jr., MD [facility] 06-28-2022 21:27-0500 Systolic blood pressure 118 mm[Hg] Perry Perea Jr., MD [facility] 06-28-2022 16:19-0500 Body height 160 cm Perry Perea Jr., MD [facility] 06-28-2022 16:19-0500 Body mass index (BMI) [Ratio] 28.7 kg/m2 Perry Perea Jr., MD [facility] 06-28-2022 16:19-0500 Body temperature 98.2 [degF] Perry Perea Jr., MD [facility] 06-28-2022 16:19-0500 Body weight 73.48 kg Perry Perea Jr., MD [facility] 04-26-2021 17:11-0500 Diastolic Blood Pressure NBP 70 1 BRANDO REGALADO DO [facility] 04-26-2021 17:11-0500 Heart rate 62 /min BRANDO REGALADO DO [facility] 04-26-2021 17:11-0500 Systolic Blood Pressure NBP 112 1 BRANDO REGALADO DO [facility] 04-26-2021 16:45-0500 Diastolic Blood Pressure NBP 80 1 BRANDO VILLATOROOCK DO [facility] 04-26-2021 16:45-0500 Heart rate 58 /min BRANDO REGALADO DO [facility] 04-26-2021 16:45-0500 Systolic Blood Pressure NBP 119 1 BRANDO SHEROCK DO [facility] 04-26-2021 16:37-0500 Diastolic Blood Pressure NBP 80 1 BRANDO SHEROCK DO [facility] 04-26-2021 16:37-0500 Heart rate 72 /min BRANDO SHEROCK DO [facility] 04-26-2021 16:37-0500 Respiratory rate 17 /min BRANDO SHEROCK DO [facility] 04-26-2021 16:37-0500 Systolic Blood Pressure NBP 109 1 BRANDO SHEROCK DO [facility] 04-26-2021 16:30-0500 Respiratory rate 13 /min BRANDO SHEROCK DO [facility] 04-26-2021 16:20-0500 Respiratory rate 13 /min BRANDO SHEROCK DO [facility] 04-26-2021 15:59-0500 Body temperature 97.16 [degF] BRANDO SHEROCK DO [facility] 04-26-2021 13:54-0500 Body height 160 cm BRANDO SHEROCK DO [facility] 04-26-2021 13:54-0500 Body temperature 96.98 [degF] BRANDO SHEROCK DO [facility] 04-26-2021 13:54-0500 Body weight 68.8 kg BRANDO SHEROCK DO [facility] 04-26-2021 13:54-0500 Body weight 26.88 kg/m2 BRANDO SHEROCK DO [facility] 04-26-2021 13:54-0500 Heart rate 61 /min BRANDO SHEROCK DO [facility] 03-22-2021 10:10-0400 Diastolic blood pressure 59 mm[Hg] BRANDO SHEROCK DO [facility] 03-22-2021 10:10-0400 Heart rate 79 /min BRANDO SHEROCK DO [facility] 03-22-2021 10:10-0400 Mean blood pressure 75 mm[Hg] BRANDO SHEROCK DO [facility] 03-22-2021 10:10-0400 Systolic blood pressure 106 mm[Hg] BRANDO SHEROCK DO [facility] 03-22-2021 09:18-0400 Body temperature 97.7 [degF] BRANDO SHEROCK DO [facility] 03-22-2021 09:18-0400 Diastolic blood pressure 65 mm[Hg] BRANDO REGALADO DO [facility] 03-22-2021 09:18-0400 Heart rate 75 /min BRANDO REGALADO DO [facility] 03-22-2021 09:18-0400 Respiratory rate 16 /min BRANDOOBED REGALADO DO [facility] 03-22-2021 09:18-0400 Systolic blood pressure 110 mm[Hg] BRANDOOBED REGALADO DO [facility] 03-21-2021 23:10-0400 Body temperature 98.42 [degF] BRANDO REGALADO DO [facility] 03-21-2021 23:10-0400 Diastolic blood pressure 56 mm[Hg] BRANDO REGALADO DO [facility] 03-21-2021 23:10-0400 Heart rate 89 /min BRANDO REGALADO DO [facility] 03-21-2021 23:10-0400 Mean blood pressure 71 mm[Hg] BRANDO REGALADO DO [facility] 03-21-2021 23:10-0400 Reason For Taking VItal Signs BRANDO REGALADO DO [facility] 03-21-2021 23:10-0400 Respiratory rate 18 /min BRANDO REGALADO DO [facility] 03-21-2021 23:10-0400 Systolic blood pressure 102 mm[Hg] BRANDO REGALADO DO [facility] 03-21-2021 14:48-0400 Body temperature 98.78 [degF] BRANDO REGALADO DO [facility] 03-21-2021 14:48-0400 Mean blood pressure 79 mm[Hg] BRANDO REGALADO DO [facility] 03-21-2021 14:48-0400 Reason For Taking VItal Signs BRANDO REGALADO DO [facility] 03-21-2021 07:55-0400 Reason For Taking VItal Signs BRANDO REGALADO DO [facility] 03-21-2021 07:55-0400 Respiratory rate 16 /min BRANDO REGALADO DO [facility] 03-21-2021 04:15-0400 Body temperature 98.6 [degF] BRANDO REGALADO DO [facility] 03-21-2021 02:30-0400 Body temperature 100.58 [degF] BRANDO REGALADO DO [facility] 03-20-2021 16:37-0400 Body height 160 cm BRANDO REGALADO DO [facility] 03-20-2021 16:37-0400 Body weight 79.5 kg BRANDO REGALADO DO [facility] 03-20-2021 16:37-0400 Body weight 31.05 kg/m2 BRANDO REGALADO DO [facility] 11-12-2020 16:15-0400 Body temperature 98.01 [degF] Cayla Lehman MD Work Phone: [employer] Work Phone: 11-12-2020 16:15-0400 Diastolic blood pressure 61 mm[Hg] Cayla Lehman MD Work Phone: [facility] Work Phone: 11-12-2020 16:15-0400 Heart rate 83 /min Cayla Lehman MD Work Phone: [facility] Work Phone: 11-12-2020 16:15-0400 Respiratory rate 18 /min Cayla Lehman MD Work Phone: [facility] Work Phone: 11-12-2020 16:15-0400 Systolic blood pressure 114 mm[Hg] Cayla Lehman MD Work Phone: [facility] Work Phone: 11-04-2020 20:45-0400 Body temperature 98.29 [degF] Cayla Lehman MD Work Phone: [facility] Work Phone: 11-04-2020 20:45-0400 Diastolic blood pressure 62 mm[Hg] Cayla Lehman MD Work Phone: [facility] Work Phone: 11-04-2020 20:45-0400 Heart rate 78 /min Cayla Lehman MD Work Phone: [facility] Work Phone: 11-04-2020 20:45-0400 Respiratory rate 18 /min Cayla Lehman MD Work Phone: [facility] Work Phone: 11-04-2020 20:45-0400 Systolic blood pressure 120 mm[Hg] Cayla Lehman MD Work Phone: [facility] Work Phone: 07-28-2020 17:12-0500 BMI (Body Mass Index) 26.39 kg/m2 Bernard PACHECOA Work Phone: 07-28-2020 17:12-0500 Body Temperature 96.91 [degF] Bernard PACHECOA Work Phone: 07-28-2020 17:12-0500 Body weight 67.59 kg Bernard PACHECOA Work Phone: 07-28-2020 17:12-0500 BP Diastolic 71 mm[Hg] Bernard PACHECOA Work Phone: 07-28-2020 17:12-0500 BP Systolic 114 mm[Hg] Bernard PACHECOA Work Phone: 07-28-2020 17:12-0500 Height 160 cm Bernard PACHECOA Work Phone: 07-28-2020 17:12-0500 Pulse (Heart Rate) 85 /min Bernard Beckhama TARAA Work Phone: 07-28-2020 17:12-0500 Pulse Oximetry 99 % Bernard PACHECOA Work Phone: 07-28-2020 17:12-0500 Respiratory Rate 16 /min Bernard SMITH Work Phone: 12-21-2019 18:31-0400 BP Diastolic 76 mm[Hg] Duane Marcus [facility] [place] , [place] 12-21-2019 18:31-0400 BP Systolic 109 mm[Hg] Duane [facility] , [place] 12-21-2019 18:31-0400 Pulse (Heart Rate) 63 /[facility] [place] 12-21-2019 18:31-0400 Pulse Oximetry 100 % [facility] [place] 12-21-2019 14:41-0400 Body Temperature 96.91 [degF] [facility] [place] 12-21-2019 14:41-0400 Respiratory Rate 16 /min [facility], [place] 12-21-2019 14:40-0400 BMI (Body Mass Index) 23.91 kg/m2 [facility] [place] 12-21-2019 14:40-0400 Body weight 61.24 kg [facility] [place] 12-21-2019 14:40-0400 Height 160 cm Duane [facility] [place] 03-04-2019 14:29-0400 BMI (Body Mass Index) 26.22 kg/m2 Mckenna [facility] [place], [place] 03-04-2019 14:29-0400 Body Temperature 98.29 [degF] Mckenna flikdate [facility], [place] 03-04-2019 14:29-0400 Body weight 67.13 kg [facility] [place] 03-04-2019 14:29-0400 BP Diastolic 87 mm[Hg] Mckenna Recinos [facility] [place] , [place] 03-04-2019 14:29-0400 BP Systolic 121 mm[Hg] Mckenna Recinos [facility] [place] [facility] [place] 03-04-2019 14:29-0400 Height 160 cm Mckenna Recinos [facility] [place] [facility] [place] 03-04-2019 14:29-0400 Pulse (Heart Rate) 80 /min Mckenna Recinos [place], [place] 03-04-2019 14:29-0400 Pulse Oximetry 98 % Mckenna Recinos [facility] [place] , [place] 03-04-2019 14:29-0400 Respiratory Rate 16 /min Mckenna Recinos [facility] Encounters Encounter Date Encounter Type Care Provider Facility Start: 01-13-2025 ambulatory Antoinette Pettit Facility: [facility] Start: 01-11-2025 End: 01-11-[address] Abdirahman Olivera DO Work Phone: [facility] Start: 01-11-2025 End: 01-11-[address] Antoinette Pettit MD [facility] Work Phone: Start: 01-05-2025 End: 01-05-2025 Emergency department patient visit Dr. Abdirahman Olivera DO Work Phone: -Emergency Department Work Phone: Start: 12-30-2024 End: 12-30-2024 Emergency department patient visit ABDIRAHMAN OLIVERA Facility:[id number] Start: 12-29-2024 End: 12-29-2024 Follow-up encounter Paulo Claire DO Work Phone: [facility] Start: 12-28-2024 End: 12-29-2024 ambulatory SELF Facility:[id number] Start: 12-28-2024 End: 12-29-2024 Patient encounter procedure Herlinda DON Work Phone: [facility] Comment on above: Vaginal bleeding (Pr imary Dx); Fatigue, unspecified type Start: 12-24-2024 End: 12-24-2024 Emergency department patient visit ABDIRAHMAN OLIVERA Facility:[id number] Start: 11-16-2024 Non-patient / Non-visit Dr. Antoinette paul MD -[facility] Work Phone: Start: 08-24-2024 End: 08-24-[address] ABDIRAHMAN OLIVERA DO Facility:A Start: 03-25-2024 End: 03-25-2024 ambulatory Antoinette Pettit Facility:[facility] Start: 03-11-2024 End: 03-11-2024 ambulatory Antoinetteedwin Pettit Facility:[facility] Start: 02-20-2024 End: 02-20-2024 ambulatory Abdirahman Olivera Facility:[facility] Start: 02-02-2024 End: 02-02-[address] ABDIRAHMAN OLIVERA DO Facility:A Start: 01-18-2024 End: 01-18-2024 Emergency department patient visit JACQUES SHAFER Facility:[id number] Start: 07-17-2023 End: 07-17-2023 Admission to same day surgery center [facility] Start: 07-17-2023 End: 07-17-2023 ambulatory [facility] Work Phone: Start: 06-02-2023 End: 06-03-[address] ABDIRAHMAN OLIVERA DO Facility:A Start: 06-02-2023 End: 06-02-[address] ABDIRAHMAN OLIVERA DO [facility] Start: 05-29-[address] ABDIRAHMAN OLIVERA DO Fa cility:B Start: 05-29-2023 End: 06-02-[address] ABDIRAHMAN OLIVERA DO [facility] Start: 02-06-2023 End: 02-07-2023 Evaluation and management of inpatient BRANDO Letty REGALADO DO Facility:B Start: 02-06-2023 End: 02-07-2023 Evaluation and management of inpatient BRANDO E FABRICIO DO [facility] Start: 01-30-2023 Telephone encounter Lorraine falcon MD Work Phone: [facility] Obstetrics & Gynecology Comment on above: Appointment Request Start: 01-30-2023 End: 01-31-2023 ambulatory JOLIE CONTEH LEAF CONDITIONER-CNM Facility:B Start: 01-30-2023 End: 01-30-2023 Admission to establishment BRANDO Letty REGALADO DO [facility] Start: 01-30-2023 End: 01-30-2023 ambulatory ABIOLA GONZALEZ [facility] Start: 01-30-2023 End: 01-30-2023 Subsequent hospital visit by physician Abiola Gonsalves Duyenginny RODRIGUEZ [facility] Start: 01-23-2023 End: 01-24-2023 ambulatory JOLIE CONTEH LEAF CONDITIONER-CNM Facility:A Start: 01-22-2023 End: 01-23-2023 ambulatory BRANDO REGALADO DO Facility:B Start: 01-22-2023 End: 01-22-2023 SAME DAY STAY BRANDO REGALADO DO [facility] Start: 01-12-2023 End: 01-12-2023 ambulatory DAVID SANDOVAL MD Facility:A Start: 01-12-2023 End: 01-12-2023 SAME DAY STAY DAVID SANDOVAL MD [facility] Start: 01-10-2023 End: 01-15-2023 ambulatory DELIA SCHERER LEAF CONDITIONER-CNM Facility:B Start: 01-08-2023 End: 01-09-2023 ambulatory JOLIE CONTEH LEAF CONDITIONER-CNM Facility:B Start: 01-08-2023 End: 01-08-2023 SAME DAY STAY JOLIE CONTEH LEAF CONDITIONER-CNM [facility] Start: 12-17-2022 End: 12-17-2022 ambulatory SUPRIYA VIVAR [facility] Start: 12-17-2022 End: 12-17-2022 Subsequent hospital visit by physician Supriya Vivar MD Work Phone: [facility] Start: 12-11-2022 End: 12-16-2022 ambulatory DELIA SCHERER LEAF CONDITIONER-CNM Facility:B Start: 12-11-2022 End: 12-15-2022 Outreach Lab DELIA SCHERER LEAF CONDITIONER-CNM [facility] Start: 12-10-2022 End: 12-15-2022 ambulatory DELIA SCHERER LEAF CONDITIONER-CNM Facility:B Start: 12-10-2022 End: 12-11-2022 ambulatory DELIA SCHERER LEAF CONDITIONER-CNM Facility:A Start: 11-19-2022 End: 11-19-[address] OK KENNEDY DO Facility:B Start: 11-19-2022 End: 11-19-[address] KO KENNEDY DO [facility] Start: 11-11-2022 End: 11-11-2022 Subsequent hospital visit by physician [facility] 5 [facility] Comment on above: Encounter for other screening follow-up [Z36.2] Start: 11-04-2022 ambulatory JOLIE Bruno LEAF CONDITIONER-CNM Facility:A Start: 10-28-2022 End: 10-28-2022 ambulatory [facility] Start: 10-28-2022 End: 10-28-2022 Emergency department patient visit Moses Holden MD Work Phone: [facility] Comment on above: Fall, initial encoun ter (Primary Dx); 25 weeks gestation of Start: 10-19-2022 End: 10-19-2022 ambulatory BRANDO REGALADO DO Facility:B Start: 10-19-2022 End: 10-19-2022 SAME DAY STAY BRANDO REGALADO DO [facility] Start: 10-16-2022 ambulatory EDDIE NICOLE MD Facilit y:B Start: 10-04-2022 End: 10-05-2022 ambulatory FEDERICO CLAIRE MD Facility:A Start: 09-30-2022 End: 09-30-2022 ambulatory EDDIE NICOLE MD Facility:B Start: 09-30-2022 End: 09-30-2022 SAME DAY STAY EDDIE NICOLE MD [facility] Start: 09-24-2022 End: 09-24-2022 Emergency department patient visit [facility] Start: 09-24-2022 End: 09-24-2022 ambulatory NONE PHYSICIAN Facility:B Start: 09-24-2022 End: 09-24-2022 Emergency department patient visit Mahad Smith DO Work Phone: [facility] Comment on above: Threatened miscarria ge (Primary Dx) Start: 09-24-2022 End: 09-24-2022 SAME DAY STAY EDDIE NICOLE MD [facility] Start: 09-12-2022 End: 09-17-2022 ambulatory FEDERICO CLAIRE MD Facility:A Start: 09-08-2022 End: 09-08-2022 Emergency department patient visit [facility] Start: 08-29-2022 End: 08-29-2022 Subsequent hospital visit by physician [facility] 1 [facility] Comment on above: encounter for format ion screening for malformation, Start: 08-17-2022 ambulatory JOLIE CONTEH Facility: [id number] Start: 08-12-2022 End: 08-12-2022 Emergency department patient visit PERRY PEREA JR. [facility] Start: 08-12-2022 End: 08-12-2022 Emergency department patient visit Perry Perea Jr., MD [facility] Emergency Department Comment on above: Threatened miscarria ge (Primary Dx) Start: 07-31-2022 End: 07-31-2022 [facility] Start: 07-31-2022 End: 07-31-2022 Emergency department patient visit Mahad Castillo DO Work Phone: [facility] Emergency Department Comment on above: Threatened , antepartum (Primary Dx) Start: 07-17-2022 End: 07-17-2022 Subsequent hospital visit by physician [facility] 1 [facility] Comment on above: Spotting complicatin g , first trimester [O26.851] Start: 07-12-2022 ambulatory DELIA Centeno JANE SMITH LEAF CONDITIONER-CNM Facility:A Start: 06-28-2022 End: 06-28-2022 Emergency department patient visit PERRY PEREA JR. 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] Start: 05-14-2022 End: 05-14-2022 ambulatory Perry Perea Facility:[facility] Start: 05-14-2022 End: 05-14-2022 ambulatory DO Perry Perea Work Phone: [facility] Work Phone: Start: 05-14-2022 End: 05-14-2022 Patient encounter procedure DO Perry Perea Work Phone: [facility] [place] Start: 05-14-2022 End: 05-14-2022 Patient encounter procedure DO Perry Perea Work Phone: [facility] [place] Start: 05-14-2022 Patient encounter status DO Christian pascal Eric Work Phone: [facility] Start: 04-04-2022 End: 04-04-2022 Patient encounter procedure LUIS REESE LEAF CONDITIONER-GLOBAL PRODUCT MANAGER [facility] Start: 04-26-2021 End: 04-26-2021 SAME DAY STAY BRANDO REGALADO DO [facility] Start: 04-25-2021 End: 04-25-2021 Subsequent hospital visit by physician [facility] Provider RILEY SPENCE Comment on above: ENDOMETRIOSIS AFTER DELIVERY Start: 03-20-2021 End: 03-22-2021 Evaluation and management of inpatient BRANDO REGALADO DO [facility] Start: 03-20-2021 End: 03-20-2021 Admission to establishment BRANDO REGALADO DO [facility] Start: 02-27-2021 End: 02-27-2021 Patient encounter procedure ASHIA PEREA LEAF CONDITIONER-CNM [facility] Start: 12-25-2020 End: 12-25-2020 Subsequent hospital visit by physician Supriya Vivar MD Work Phone: [facility] Start: 11-12-2020 End: 11-12-2020 Subsequent hospital visit by physician Cayla Lehman MD Work Phone: [facility] Start: 11-04-2020 End: 11-04-2020 Subsequent hospital visit by physician Cayla Lehman MD Work Phone: [facility] Start: 09-02-2020 End: 09-02-2020 Subsequent hospital visit by physician Cayla Lehman MD Work Phone: [facility] Start: 08-11-2020 End: 08-11-2020 Emergency department patient visit RAMIREZ [facility] Start: 07-28-2020 End: 07-28-2020 Emergency department patient visit Bernard Babb Work Phone: [facility] Comment on above: Dizziness (Primary D x); Pelvic pain Start: 12-21-2019 End: 12-21-2019 Emergency department patient visit Duane Marcus Work Phone: [facility] ED Comment on above: Pneumonia due to org anism (Primary Dx); Palpitations Start: 03-04-2019 End: 03-04-2019 Emergency department patient visit Mckenna Recinos Work Phone: [facility] Comment on above: Early stage of pregn siena (Primary Dx) Start: 02-25-2019 End: 02-25-2019 Subsequent hospital visit by physician Adi Alvarez Work Phone: [facility] X-Ray Start: 01-01-2017 Ambulatory WW-MIHIR Ortegai ty:UNI Start: 04-20-2012 End: 04-20-2012 Patient encounter procedure Gaston May Work Phone: [place] Start: 04-20-2012 Results Only Gaston Zachery May Work Phone: [facility] Procedures Date Procedure Procedure Detail Performing Clinician Start: 01-05-[address] Abdirahman Olivera DO Work Phone: Start: 01-05-2025 Plain chest X-ray Dr. Jeanie Olivera DO Work Phone: Start: 01-05-2025 D-dimer assay, quantitative Dr. Abdirahman Olivera DO Work Phone: Comment on above: NORMAL D-Dimer level (<0.50) indicates no DVT or PE. Start: 01-05-[address] Abdirahman Olivera DO Work Phone: Start: 01-05-2025 Urnls dip stick/tabl et reagent auto microscopy Dr. Abdirahman Olivera DO Work Phone: Start: 01-05-[address] Abdirahman Olivera DO Work Phone: Start: 12-28-2024 Urine test visual color cmprsn meths Herlinda DON Work Phone: Start: 12-28-2024 Blood count complete auto&auto difrntl wbc Herlinda DON Work Phone: Start: 07-17-2023 Cysto,Biopsy,Fulgura tion,Rogerio dder Tumor (Not Applicable) Start: 12-17-2022 Bacterial vaginosis and vaginitis rRNA panel - Vaginal fluid by Probe Gina Sun MD Work Phone: Start: 12-17-2022 Urinalysis complete panel - Urine Gina Sun MD Work Phone: Start: 12-17-2022 Urnls dip stick/tabl et reagent auto microscopy Gina Sun MD Work Phone: Start: 09-24-2022 End: 09-24-2022 Us uterus limited 1/> fetuses Mahad Smith DO Work Phone: Start: 09-24-2022 Basic metabolic pane l calcium total Mahad Smith DO Work Phone: Start: 09-24-2022 Blood typing serologic abo Mahad Smith DO Work Phone: Start: 09-24-2022 Urinalysis complete panel - Urine Mahad Smith DO Work Phone: Start: 09-24-2022 Urnls dip stick/tabl et rgnt auto w/o microscopy Mahad Smith DO Work Phone: Start: 09-08-2022 Us uterus l imited 1/> fetuses PERRY PEREA JR. Start: 09-08-2022 Blood count complete auto&auto difrntl wbc PERRY PEREA JR. Start: 09-08-2022 Hepatic function panel PERRY PEREA JR. Start: 09-08-2022 Urnls dip stick/tabl et rgnt auto w/o microscopy PERRY PEREA JR. Start: 09-08-2022 Culture bacterial quanttative colony count urine PERRY PEREA JR. Start: 09-08-2022 Iadna multiple organ isms amplified probe tq PERRY PEREA JR. Start: 09-08-2022 VAGINAL EXAM PERRY WINSTON JR. Start: 09-08-2022 SALINE LOCK IV PERRY LEBLANC JR. Start: 08-12-2022 Blood count complete auto&auto difrntl wbc PERRY PEREA JR. Start: 08-12-2022 Urnls dip stick/tabl et rgnt auto w/o microscopy PERRY PEREA JR. Start: 08-12-2022 Us uterus l imited 1/> fetuses PERRY PEREA JR. Start: 08-12-2022 Assay of magnesium Carolann Pearce PA-C Work Phone: Start: 08-12-2022 Urnls dip stick/tabl et rgnt auto w/o microscopy Ellyn Pearce PA-C Work Phone: Start: 08-12-2022 Us uterus l imited 1/> fetuses Ellyn Pearce PA-C Work Phone: Start: 07-31-2022 NURSING COMMUNICATION G RACH ERIC BARON Start: 07-31-2022 Us uterus 1 4 wk transabdl 05/19 gestat PERRY PEREA JR. Start: 07-31-2022 Urnls dip stick/tabl et rgnt auto w/o microscopy PERRY PEREA JR. Start: 07-31-2022 ABO/RH PERRY WINSTON JR. Start: 07-31-2022 Gonadotropin chorion ic quantitative PERRY PEREA JR. Start: 07-31-2022 Us uterus 1 4 wk transabdl 05/19 gestat Teddy Dominguez MD Work Phone: Start: 07-31-2022 Urnls dip stick/tabl et rgnt auto w/o microscopy Teddy Dominguez MD Work Phone: Start: 07-31-2022 Blood typing serologic abo Teddy Dominguez MD Work Phone: Start: 07-31-2022 Comprehensive metabo lic panel Teddy Dominguez MD Work Phone: Start: 06-28-2022 Us preg uterus real time w/image dcmtn transvag PERRY PEREA JRShiela Start: 06-28-2022 Urnls dip stick/tabl et reagent auto microscopy PERRY PEREA JRShiela Start: 06-28-2022 Us preg uterus real time w/image dcmtn transvag Samantha Hudson PA-C Work Phone: Start: 06-28-2022 Urine test visual color cmprsn meths PERRY PEREA JR. Start: 06-28-2022 Antibody screen Perry Perea Jr., MD Start: 06-28-2022 TYPE AND SCREEN PERRY PERAE JRShiela Start: 06-28-2022 Blood count complete auto&auto difrntl wbc PERRY PEREA JRShiela Start: 06-28-2022 Urnls dip stick/tabl et reagent auto microscopy Samantha Hudson PA-C Work Phone: Start: 06-28-2022 Urine test visual color cmprsn meths Samantha Hudson PA-C Work Phone: Start: 06-28-2022 Blood typing serologic abo Samantha Hudson PA-C Work Phone: Start: 06-28-2022 Comprehensive metabo lic panel Samantha Hudson PA-C Work Phone: Start: 06-21-2022 Us preg uterus real time w/image dcmtn transvag Delia Scherer Work Phone: Start: 02-04-2022 Extraction of wisdom tooth EDDIE NICOLE MD Start: 05-19-2021 Dilation and curettage EDDIE NICOLE MD Comment on above: 2020 Start: 11-04-2020 Urnls dip stick/tabl et rgnt auto w/o microscopy Laurence Desai DO Work Phone: Start: 07-28-2020 Assay of lipase Bernard Babb Work Phone: Start: 07-28-2020 Blood count complete auto&auto difrntl wbc Bernard Babb Work Phone: Start: 07-28-2020 Comprehensive metabo lic panel Bernard Babb Work Phone: Start: 07-28-2020 Urnls dip stick/tabl et rgnt auto w/o microscopy Bernard Babb Work Phone: Start: 12-21-2019 ADD ON LAB TEST Gurvinder Gonzalez Work Phone: Start: 12-21-2019 Radiologic exam ches t single view [facility] Work Phone: Start: 12-21-2019 Urine test visual color cmprsn meths [facility] Work Phone: Start: 12-21-2019 Assay of magnesium Juan Antonio [facility]ar [facility] Work Phone: Start: 12-21-2019 Assay of thyroid sti mulating hormone tsh [facility] Work Phone: Start: 12-21-2019 Assay of troponin quantitative [facility] Work Phone: Start: 12-21-2019 Blood count complete auto&auto difrntl wbc [facility] Work Phone: Start: 12-21-2019 Fibrin dgradj produc ts d-dimer quantitative [facility] Work Phone: Start: 11-02-2019 delivery only ASHIA PEREA LEAF CONDITIONER-CNM Start: 04-20-2019 Antibody screen Comment on above: Performed By: #### B 100.0260, B100.0950 #### Test performed at: [place] [id number] Start: 03-04-2019 Us preg uterus real time w/image dcmtn transvag Mckenna Recinos Work Phone: Start: 03-04-2019 Blood count complete auto&auto difrntl wbc Mckenna Recinos Work Phone: Start: 03-04-2019 Blood typing serologic abo Mckenna Recinos Work Phone: Start: 03-04-2019 Gonadotropin chorion ic quantitative Mckenna Gunterannalisa Work Phone: Start: 03-04-2019 Urnls dip stick/tabl et rgnt auto w/o microscopy Mckenna Centeno Jorje Work Phone: Start: 02-25-2019 FL HYSTEROSCOPY Nisrine Marshallr Work Phone: Start: 07-08-2016 Cholecystectomy ASHIA WI LSON LEAF CONDITIONER-CNM Start: 06-27-2014 Cystoscopy LUIS HO CRUZCsomo LEAF CONDITIONER-GLOBAL PRODUCT MANAGER Start: 12-17-2012 Laparoscopy ASHIA MICHELLESO N LEAF CONDITIONER-CNM Comment on above: endometriosis ruled out Start: 04-20-2012 CONVERTED CYTOLOGY SATELLITE SPECIALIST Gaston Parry Work Phone: Dilation and curettage JACOBO REESE LEAF CONDITIONER-GLOBAL PRODUCT MANAGER Comment on above: 2020 Plan of Treatment Date Care Activity Detail Author Start: 2044 Zoster Vaccines (1 o f 2) Zoster Vaccines (1 of 2) [facility] Start: 11-03-2029 DTaP/Tdap/Td vaccine (2 - Td or Tdap) DTaP/Tdap/Td vaccine (2 - Td or Tdap) [facility] Start: 11-03-2029 DTaP/Tdap/Td vaccine (2 - Td) DTaP/Tdap/Td vaccine (2 - Td) [facility] Work Phone: Start: 11-03-2029 DTaP/Tdap/Td Vaccine s (2 - Td or Tdap) DTaP/Tdap/Td Vaccines (2 - Td or Tdap) [facility] Start: 11-03-2029 Urine microalbumin profile DTaP,Tdap,Td Vaccine (2 - Td or Tdap) [place] Start: 01-17-2025 Influenza vaccination Influenza Vacc ine (#1) [place] Start: 01-06-2025 [facility] Start: 01-05-2025 End: 01-05-2025 [facility] Start: 01-05-2025 Bacteria identified in Urine by Culture Urine Culture [facility] Start: 07-17-2023 [facility] Start: 01-17-2023 Influenza vaccination C [facility] Start: 09-24-2022 End: 09-24-2022 ambulatory 09/24/2022 Initial Maternal/ Med Abhishek Lynne MD [address] [facility] [address] [place] [address] [facility] Maternal Medicine Start: 05-19-2022 DEPRESSION ASSESSMENT DEPRESSION ASS ESSMENT [place] Start: 05-19-2022 Medicare Annual Wellness Visit Medicare Annual Wellness Visit [place] Start: 01-17-2022 Influenza vaccination INFLUENZA (#1) [place] Start: 12-17-2021 Influenza vaccination Flu vaccine (# 1) [facility] Start: 2021 HPV Vaccine (1 - 3-d ose SCDM series) HPV Vaccine (1 - 3-dose SCDM series) [place] Start: 01-17-2021 Influenza vaccination C [facility] Start: 01-18-2020 Influenza vaccination M [place], [place] Start: 01-17-2019 Influenza vaccination Flu vaccine (# 1) [place], [place] Start: 02-05-2017 Chlamydia screen Chlamydia screen [place], [place] Start: 05-24-2016 PAP TESTING PAP TESTING [place] Start: 05-24-2016 Screening for malign ant neoplasm of cervix Cervical Cancer Screening [place] Start: 2015 Cervical cancer screen Cervical canc er screen [place], [place] Start: 2015 Screening for malign ant neoplasm of cervix [facility] Start: 2013 DTaP/Tdap/Td vaccine (1 - Tdap) DTaP/Tdap/Td vaccine (1 - Tdap) [place], [place] Start: 2013 Urine microalbumin profile DTAP,TDAP,TD (1 - Tdap) [place] Start: 2012 Anxiety Screening Anxiety Screening [place] Start: 2012 Depression Screening Depression Scre enizabel [place] Start: 01-18-2013 HEPATITIS C SCREENING HEPATITIS C SC REENING [place] Start: 2012 Hepatitis C screening B [facility] Start: 2012 HIV SCREENING HIV SCREENING [facility] Start: 2012 HIV screening HIV Screening [facility] Start: 01-16-2012 Hepatitis B Vaccine (2 of 3 - 3-dose series) Hepatitis B Vaccine (2 of 3 - 3-dose series) [place] Start: 2010 COVID-19 Vaccine (1) COVID-19 Vaccin e (1) [facility] Work Phone: Start: 2009 HIV screen HIV screen [place], [place] Start: 2009 HIV screening HIV screen [facility] Start: 2009 HPV vaccine (1 - Fem ruthie 3-dose series) HPV vaccine (1 - Female 3-dose series) [place], [place] Start: 2007 Varicella Vaccine (1 of 2 - 13+ 2-dose series) Varicella Vaccine (1 of 2 - 13+ 2-dose series) [place], [place] Start: 2006 Adult depression screening assessment DEPRESSION SCREENING [place] Start: 2006 COVID-19 Vaccine (1) COVID-19 Vaccin e (1) [facility] Work Phone: Start: 2006 Depression Screen Depression Screen [facility] Start: 2005 HPV vaccine (1 - 2-d ose series) HPV vaccine (1 - 2-dose series) [place] Start: 2000 Pneumococcal 0-64 ye ars Vaccine (1 of 1 - PPSV23) Pneumococcal 0-64 years Vaccine (1 of 1 - PPSV23) [facility] Work Phone: Start: 2000 Pneumococcal 0-64 ye ars Vaccine (1 of 2 - PPSV23) Pneumococcal 0-64 years Vaccine (1 of 2 - PPSV23) [facility] Work Phone: Start: 1999 COVID-19 VACCINE (1) COVID-19 VACCIN E (1) [place] Start: 1995 MMR Vaccines (1 of 1 - Standard series) MMR Vaccines (1 of 1 - Standard series) [facility] Start: 1995 Varicella vaccination Varicell a Vaccines (1 of 2 - 2-dose childhood series) [facility] Start: 1995 Varicella vaccine (1 of 2 - 2-dose childhood series) Varicella vaccine (1 of 2 - 2-dose childhood series) [facility] Start: 1994 COVID-19 VACCINE (#1) COVID-19 VACCI NE (#1) [place] Start: 1994 HEPATITIS B (1 of 3 - 3-dose series) HEPATITIS B (1 of 3 - 3-dose series) [place] Start: 1994 Hepatitis B Vaccines (1 of 3 - 3-dose series) Hepatitis B Vaccines (1 of 3 - 3-dose series) [facility] Start: 1994 Hepatitis C screening Hepatitis C sc reen [facility] Work Phone: Start: 1994 HIV screening HIV Screening [facility] End: 12-21-2019 COVID-19 COVID-19 Lab STAT One Time for 1 Occurrences starting 12/21/2019 until 12/21/2019 [place], [place] Comment on above: One Time for 1 Occur rences starting 12/21/2019 until 12/21/2019 COVID-19 COVID-19 Lab STA T 12/21/2019 5:54 PM EDT [place] End: 11-04-2020 Culture, Urine [facility] Work Phone: Comment on above: One Time for 1 Occur rences starting 11/04/2020 until 11/04/2020 Once for 1 Occurrenc es starting 11/04/2020 until 11/04/2020 Culture, Urine Culture, Urine Microbiology STAT 11/04/2020 9:40 PM EDT [facility] Work Phone: End: 06-28-2022 Culture, Urine Culture, Urine Microbiology Add-On One Time for 1 Occurrences starting 06/28/2022 until 06/28/2022 [facility] Work Phone: Comment on above: One Time for 1 Occur rences starting 06/28/2022 until 06/28/2022 End: 07-28-2020 HCG, Quantitative, HCG, Quantitative, Lab STAT One Time for 1 Occurrences starting 07/28/2020 until 07/28/2020 [facility] Work Phone: Comment on above: One Time for 1 Occur rences starting 07/28/2020 until 07/28/2020 HCG, Quantitative, HCG, Quantitative, Lab STAT 07/28/2020 6:23 PM EST [facility] Work Phone: Patient Education ED Chest Pain, Uncertain Cause ED Dysfunctional Uterine Bleeding ED UTIs Women [facility] Work Phone: Patient referral [facility] Work Phone: Troponin T.cardiac [Mass/volume] in Serum or Plasma by High sensitivity method [facility] Urine culture [facility] End: 07-28-2020 US OB TRANSVAGINAL US OB TRANSVAGINAL Imaging STAT Once for 1 Occurrences starting 07/28/2020 until 07/28/2020 [facility] Work Phone: Comment on above: Once for 1 Occurrenc es starting 07/28/2020 until 07/28/2020 End: 09-02-2020 US OB TRANSVAGINAL US OB TRANSVAGINAL Imaging Routine Once for 1 Occurrences starting 09/02/2020 until 09/02/2020 [facility] Work Phone: Comment on above: Once for 1 Occurrenc es starting 09/02/2020 until 09/02/2020 US OB TRANSVAGINAL US OB TRANSVA GINAL Imaging Routine 09/02/2020 10:08 AM EDT [facility] Work Phone: End: 10-28-2022 US scan of abdominal aorta [facility] Work Phone: Comment on above: Once for 1 Occurrenc es starting 10/28/2022 until 10/28/2022 Immunizations Immunization Date Immunization Notes Care Provider Og lemons 11-04-2019 tetanus toxoid, redu wesley diphtheria toxoid, and acellular pertussis vaccine, adsorbed; Translations: [Boostrix (Tdap)] ASHIA PEREA APRN-KUN [facility] 06-15-2019 influenza virus vaccine, unspecified formulation BRANDO REGALADO DO [facility] Payers Date Payer Category Payer Medicaid [id number] 2022 Medicare [id number] 2022 Medicare [id number] 2022 Medicare [id number] 2022 Self-pay [id number] 2020 Unknown [id number] 2019 Unknown [id number] 2016 Private Health Insurance [facility] [employer] xxxxxxxxx 2016-Present [phone] [address] [place] [address] xxxxxxxxx [id number] 2016 Private Health Insurance [facility] PLAN [id number] 2016-Present [phone] [address] [place] [address] [id number]. 7.3.131824.315 1994 Unknown [id number] 2.16.840.1.140886.3.579.2. 204 1994 Unknown [id number] 2.16.840.1.245656.3.579.2. 204 1994 Unknown [id number] 2.16.840.1.871112.3.579.2. 204 1994 Unknown [id number] 2.16.840.1.410158.3.579.2. 204 1994 Unknown [id number] 2.16.840.1.106507.3.579.2. 627 1994 Unknown [id number] 2.16.840.1.508686.3.579.2. 62 1994 Unknown [id number] 2.16.840.1.403303.3.579.2. 1994 Unknown [id number] 2.16.840.1.990414.3.579.2. 1994 Unknown [id number] 2.16.840.1.559768.3.579.2. 1994 Unknown [id number] 2.16.840.1.237478.3.579.2. 1994 Unknown [id number] 2.16.840.1.689741.3.579.2. 1994 Unknown [id number] 2.16.840.1.908651.3.579.2. 1994 Unknown [id number] 2.16.840.1.640004.3.579.2. 1994 Unknown [id number] 2.16.840.1.756806.3.579.2. 1994 Unknown [id number] 2.16.840.1.961761.3.579.2. 1994 Unknown [id number] 2.16.840.1.240935.3.579.2. 1994 Unknown [id number] 2.16.840.1.040211.3.579.2. 627 1994 Unknown [id number] 2.16.840.1.505988.3.579.2. 627 1994 Unknown [id number] 2.16.840.1.256780.3.579.2. 627 1994 Unknown [id number] 2.16.840.1.720965.3.579.2. 1994 Unknown [id number] 2.16.840.1.927797.3.579.2. 1994 Unknown [id number] 2.16.840.1.749298.3.579.2. 1994 Unknown [id number] 2.16.840.1.380983.3.579.2. 1994 Unknown [id number] 2.16840.1.237102.3.579.2. 1994 Unknown [id number] 2.16.840.1.480596.3.579.2. 1994 Unknown [id number] 2.16.840.1.950528.3.579.2. 1994 Unknown [id number] 2.16.840.1.527446.3.579.2. 7 1994 Unknown [id number] 2.16840.1.738534.3.579.2. 1994 Unknown [id number] 2.16.840.1.194104.3.579.2. 627 Unknown [id number] 2.16.840.1.340125.3.579.2. 921 Unknown [id number] 2.16.840.1.684122.3.579.2. 462 Unknown [id number] 2.16.840.1.859676.3.579.2. 462 Unknown [id number] 2.16.840.1.741526.3.579.2. 462 Unknown [id number] 2.16.840.1.774420.3.579.2. 462 Unknown [id number] 2.16.840.1.490447.3.579.2. 462 Social History Date Type Detail Facility Start: 08-22-2016 End: 01-05-2025 Tobacco smoking status NHIS Never smoker [facility] Start: 08-22-2016 End: 12-25-2024 Alcohol intake No [place], [place] Start: 1995 Sex Assigned At Not on file M [place] Start: 12-21-2019 End: 12-28-2024 Tobacco use and exposure Never used [place] Start: 12-21-2019 End: 01-30-2023 Alcohol intake Current non-drinker of alcohol (finding) [place] Start: 06-11-2022 End: 01-30-2023 Exposure to SARS-CoV-2 (event) Not sure [place] Start: 07-11-2020 [employer] Work Phone: Tobacco Nicotine Use: denies. [facility] Start: 1995 Sex Assigned At Female [facility] Start: 09-24-2022 End: 07-16-2023 Tobacco smoking status MIIS Tobacco smoking consumption unknown [place] Tobacco smoking status No Smoking Status Entered [facility] Start: 09-27-2020 No [facility] Start: 06-28-2022 End: 08-12-2022 History SDOH Alcohol Frequency 1 [employer] Work Phone: Start: 06-28-2022 End: 08-12-2022 History SDOH Alcohol Std Drinks 0 [employer] Work Phone: Start: 10-28-2022 End: 12-25-2024 History of Social function [employer] How often to you hav e a drink containing alcohol? Never [facility] Start: 12-04-2014 How many standard drinks containing alcohol do you have on a typical day? Patient does not drink [employer] Within the last year , have you been afraid of your partner or ex-partner? No [facility] NEGATED: Highlighted row [facility] Medical Equipment Procedure Code Equipment Code Equipment Origin al Text Equipment Identifier Dates Stage 2 insertion of Axonics sacral nerve stimulator [id number] FDA Start: 03-25-2024 Stage 2 insertion of Axonics sacral nerve stimulator [id number] FDA Start: 03-25-2024 Insertion, sacral nerve stimulator, Axonics, stage 1 [id number] FDA Start: 03-11-2024 Insertion, sacral nerve stimulator, Axonics, stage 1 [id number] FDA Start: 03-11-2024 Goals Date Patient Goal Desired Activity /State Functional Status Date Assessment Result Facility 02-07-2023 Functional Status bilateral knee high removed/off [facility] 02-07-2023 Functional Status Ambulation in Room [facility] 02-06-2023 Functional Status [facility] 02-06-2023 Functional Status [facility] 02-06-2023 Functional Status Minimum assistance [facility] 02-06-2023 Functional Status Positioning Re positions self [facility] 02-06-2023 Functional Status Home independently [facility] 01-22-2023 Functional Status Awake, Up ad juan carlos [facility] 01-22-2023 Functional Status Standard Safet y ID band on, Allergy Band on, Call device within reach, Bed in low position, Wheels locked, Upper/Half-Length side-rails up, Phone within reach, personal items within reach, Non-Slip footwear [facility] 01-08-2023 Functional Status Awake [facility] 01-08-2023 Functional Status [facility] 05-15-2023 Functional Status Independent [facility] 09-30-2022 Functional Status Repositions self [facility] 09-24-2022 Functional Status Awake [facility] 09-24-2022 Are you deaf, or do you have serious difficulty hearing No 09/24/2022 11:01 AM Karine Yeboah RN No [place] 09-24-2022 Are you blind, or do you have serious difficulty seeing, even when wearing glasses No 09/24/2022 11:01 AM Karine Yeboah RN [facility] 09-24-2022 Do you have serious difficulty walking or climbing stairs No 09/24/2022 11:01 AM Karine Yeboah RN [facility] 09-24-2022 Do you have difficul ty dressing or bathing No 09/24/2022 11:01 AM Karine Yeboah RN [facility] 09-24-2022 Because of a physica l, mental, or emotional condition, do you have difficulty doing errands alone such as visiting a physician's office or shopping No 09/24/2022 11:01 AM Karine Yeboah RN No [facility] Mental Status Date Assessment Result Facility 01-05-2025 Cognitive function Voice/Name [facility] Work Phone: 07-17-2023 Cognitive function Level Of Cons ciousness Sedated [facility] Work Phone: 07-17-2023 Cognitive function Patient Orien tation Person;Place;Time [facility] Work Phone: 01-22-2023 Mental Status Orientation Oriented x 4 [facility] 09-30-2022 Mental Status Orientation Oriented x 4 [facility] 09-24-2022 Mental Status Orientation Oriented x 4 [facility] 09-24-2022 Because of a physica l, mental, or emotional condition, do you have serious difficulty concentrating, remembering, or making decisions No 09/24/2022 11:01 AM EDT Karine Gutiérrez RN No [place] Clinical Notes 10-11-2019 to 01-05-2025 Telephone Encounter - Herlinda Smith PA - 12/29/2024 4:00 PM EDTTelephone Encounter - Herlinda Smith PA - 12/29/2024 4:00 PM EDTHerlinda Smith PA - 12/29/2024 9:21 AM EDT Note Date & Type Note Facility 01-05-2025 Radiology Diagnostic study note [facility] Imaging Services [address] [place] [address] Transvaginal Non- MR#: [id number] Acct: [id number] Name: SELENE LARKIN Rep #: [id number] : 1995 F 29 From: Leander Cain MD PCP: Dr. Abdirahman Olivera, Status: REG E R Study:Transvaginal Non- Date of Exam: 01/05/25 Exam# [id number] Ordering Dr: Kavitha Blnad DO PROCEDURE: TRANSVAGINAL NON- 01/05/2025 REASON FOR EXAM: ABNORMAL BLEEDING TECHNIQUE: Transvaginal non-OB pelvic ultrasound. COMPARISON: None available. FINDINGS: Anteverted uterus appears normal in size and smooth in contour, measuring 10.1 x5.6 x 3.8 cm. No discrete uterine myoma is visualized. There is small amount of nonspecific anechoic fluid within the lower uterine segment/cervix. Endometrial stripe is normal in thickness measuring 0.3 cm. The right ovary measures 3.4 x 2.3 x 2 cm. Left ovary measures 5.6 x 4.7 x 3.5 cm, and contains a prominent simple anechoic cyst measuring 4.8 x 4.4 x 3 cm. Blood flow is demonstrated bilaterally within the ovaries on color Doppler. No evidence of torsion. No adnexal mass or significant free pelvic fluid is seen. US/Transvaginal Non- IMPRESSION: 1. Small amount of nonspecific fluid in the lower uterine segment/cervix. 2. Otherwise normal appearance of the uterus and endometrial stripe complex. 3. Simple left ovarian cyst measuring up to 4.8 cm. No free pelvic fluid. Reading Location: [id number] CC: Dr. Abdirahman Olivera DO; Dr. Gianni Bland DO ~ Phone Representative: Signed [facility] 01-05-2025 Radiology Diagnostic study note [facility] Imaging Services [address] [place] [address] Chest 1 View (Portable) MR#: [id number] Acct: [id number] Name: SELENE LARKIN Rep #: [id number] : 1995 F 29 From: Paul Salazar MD PCP: Dr. Abdirahman Olivera DO Status: REG E R Study:Chest 1 View (Portable) Date of Exam: 01/05/25 Exam# [id number] Ordering Dr: Kavitha Bland DO PROCEDURE: CHEST 1 VIEW (PORTABLE) 01/05/2025 REASON FOR EXAM: CHEST PAIN TECHNIQUE: Frontal view of the chest. COMPARISON: None FINDINGS: Hardware: EKG leads Heart: Normal Lungs: Clear. No pneumothorax or pleural effusion. Bones: The bones are unremarkable. RAD/Chest 1 View (Portable) IMPRESSION: Normal Reading Location: [facility] CC: Dr. Abdirahman Olivera DO; Dr. Gianni Bland DO ~ Phone Representative: Signed [facility] 12-29-2024 Telephone encounter Note Spoke to patient over the phone. Confirmed full name and date of . Advised patient that TSH and T4 levels were within normal range. Patient expresses understanding for this. Patient is encouraged to follow-up with her primary care as an outpatient. Herlinda Smith PA-C [place] 12-29-2024 Miscellaneous Notes Spoke to patient over the phone. Confirmed full name and date of . Advised patient that TSH and T4 levels were within normal range. Patient expresses understanding for this. Patient is encouraged to follow-up with her primary care as an outpatient. Herlinda Smith PA-C documented in this encounter [place] 12-29-2024 Note HNO ID: [id number] Author: HERLINDA SMITH PA Service: ? Author Type: Physician Deep Submergence Vehicle Operator Type: Progress Notes Filed: 12/29/2024 09:27 Note Text: [facility] FATEMEH Larkin is a 29 year old female. Patient presents with: bleeding for 2 months no appetite: Started about 2 weeks ago nauseated: Started about 2 weeks ago Fatigue Patient is a 29 female presenting with concern for vaginal bleeding, fatigue. This has been ongoing for the last 2 months. Patient notes that she has had vaginal bleeding every day for 2 months now. Notes that she goes through about a pad an hour. She feels very fatigued, tired, has been sleeping more which is a concern for her. She has never had this issue in the past. She attempted to contact her HOMOEOPATH who cannot get her into the office for another month. Patient states that she did go to the emergency room for this complaint 4 days ago, states that she was seen in triage however never got her blood work results or saw a doctor. States that she left because she did not want to wait in the waiting room. Patient is concerned that she might be anemic due to blood loss, therefore she presents to urgent care for evaluation. Patient has no history ofovarian cyst or uterine fibroids. She denies any possible chance of . Patient is not anticoagulated. Patient endorses that she has had previous issues with her thyroid. She has not been getting her thyroid levels checked routinely by her primary care doctor. Notes that her last thyroid levels were monitored about 2 years ago. Patient is concerned that her fatigue is due to her thyroid. She denies any other symptoms at this time such as dizziness, headache, chest pain, shortness of breath, abdominal pain, vomiting, diarrhea or blood in stool. Review of Systems Constitutional: Positive for fatigue. Genitourinary: Positive for vaginal bleeding. All other systems reviewed and are negative. Objective BP 112/75 Pulse 73 Temp 37.2 ?C (99 ?F) Resp 20 Wt 66.7 kg (147 lb) LMP 10/15/2024 (Approximate) SpO2 98% BMI 26.04 kg/m? Physical Exam Constitutional: Appearance: Normal appearance. HENT: Head: Normocephalic and atraumatic. Nose: Nose normal. Mouth/Throat: Mouth: Mucous membranes are moist. Pharynx: Oropharynx is clear. Eyes: Extraocular Movements: Extraocular movements intact. Conjunctiva/sclera: Conjunctivae normal. Pupils: Pupils are equal, round, and reactive to light. Cardiovascular: Rate and Rhythm: Normal rate and regular rhythm. Pulmonary: Effort: Pulmonary effort is normal. Breath sounds: Normal breath sounds. Abdominal: General: Abdomen is flat. Bowel sounds are normal. There is no distension. Palpations: Abdomen is soft. There is no mass. Tenderness: There is no abdominal tenderness. There is no right CVA tenderness, left CVA tenderness, guarding or rebound. Hernia: No hernia is present. Musculoskeletal: General: Normal range of motion. Cervical back: Neck supple. Skin: General: Skin is warm and dry. Neurological: General: No focal deficit present. Mental Status: She is alert and oriented to person, place, and time. Mental status is at baseline. Psychiatric: Mood and Affect: Mood normal. History and Record Review External record(s) reviewed: prior outpatient record. Findings from review of outpatient records: Patient was seen and evaluated in the emergency department on 12-24-2024. She had blood work completed. At that time CBC was unremarkable as well as CMP. Differential Diagnoses - is more likely for the following reason(s): suggested by HANDP Disposition The patient was discharged. OTC Medications were advised: The patient is a 29-year-old female presenting with vaginal bleeding and fatigue. On physical exam, the patient is resting comfortably no acute distress. Patient appears nontoxic. She has moist oral mucosa. Sitting upright in a chair speaking in full sentences. PERRL,, bilaterally. HEENT is grossly unremarkable. Heart is regular. Lungs are clear and equal bilaterally. Patient's abdomen is soft and nontender. No CVA tenderness bilaterally. Vital signs are stable at this time. With differential diagnosis including anemia versus dehydration versus electrolyte imbalance versus UTI versus versus hypothyroidism I did obtain CBC, i-STAT BMP, urine dipstick, urine test as well as TSH and T4 levels. CBC shows no evidence of leukocytosis or anemia. I-STAT BMP shows no evidence of electrolyte imbalance. Urine dipstick unremarkable, free from any infection, dehydration or blood. Urine test is negative. TSH and T4 pending. Patient made aware. Patient's workup here is unremarkable. Looks like she was seen in the ER 4 days ago, her CBC and electrolytes were unremarkable at that time as well. I feel the patient is likely suffering from uterine fibro (more content not included)... [facility] 12-29-2024 History of Presen t illness Narrative [facility] FATEMEH Larkin is a 29 year old female. Patient presents with: bleeding for 2 months no appetite: Started about 2 weeks ago nauseated: Started about 2 weeks ago Fatigue Patient is a 29 female presenting with concern for vaginal bleeding, fatigue. This has been ongoing for the last 2 months. Patient notes that she has had vaginal bleeding every day for 2 months now. Notes that she goes through about a pad an hour. She feels very fatigued, tired, has been sleeping more which is a concern for her. She has never had this issue in the past. She attempted to contact her HOMOEOPATH who cannot get her into the office for another month. Patient states that she did go to the emergency room for this complaint 4 days ago, states that she was seen in triage however never got her blood work results or saw a doctor. States that she left because she did not want to wait in the waiting room. Patient is concerned that she might be anemic due to blood loss, therefore she presents to urgent care for evaluation. Patient has no history of ovarian cyst or uterine fibroids. She denies any possible chance of . Patient is not anticoagulated. Patient endorses that she has had previous issues with her thyroid. She has not been getting her thyroid levels checked routinely by her primary care doctor. Notes that her last thyroid levels were monitored about 2 years ago. Patient is concerned that her fatigue is due to her thyroid. She denies any other symptoms at this time such as dizziness, headache, chest pain, shortness of breath, abdominal pain, vomiting, diarrhea or blood in stool. Review of Systems Constitutional: Positive for fatigue. Genitourinary: Positive for vaginal bleeding. All other systems reviewed and are negative. Objective BP 112/75 Pulse 73 Temp 37.2 C (99 F) Resp 20 Wt 66.7 kg (147 lb) LMP 10/15/2024 (Approximate) SpO2 98% BMI 26.04 kg/m Physical Exam Constitutional: Appearance: Normal appearance. HENT: Head: Normocephalic and atraumatic. Nose: Nose normal. Mouth/Throat: Mouth: Mucous membranes are moist. Pharynx: Oropharynx is clear. Eyes: Extraocular Movements: Extraocular movements intact. Conjunctiva/sclera: Conjunctivae normal. Pupils: Pupils are equal, round, and reactive to light. Cardiovascular: Rate and Rhythm: Normal rate and regular rhythm. Pulmonary: Effort: Pulmonary effort is normal. Breath sounds: Normal breath sounds. Abdominal: General: Abdomen is flat. Bowel sounds are normal. There is no distension. Palpations: Abdomen is soft. There is no mass. Tenderness: There is no abdominal tenderness. There is no right CVA tenderness, left CVA tenderness, guarding or rebound. Hernia: No hernia is present. Musculoskeletal: General: Normal range of motion. Cervical back: Neck supple. Skin: General: Skin is warm and dry. Neurological: General: No focal deficit present. Mental Status: She is alert and oriented to person, place, and time. Mental status is at baseline. Psychiatric: Mood and Affect: Mood normal. History and Record Review External record(s) reviewed: prior outpatient record. Findings from review of outpatient records: Patient was seen and evaluated in the emergency department on 12-24-2024. She had blood work completed. At that time CBC was unremarkable as well as CMP. Differential Diagnoses - is more likely for the following reason(s): suggested by H&P Disposition The patient was discharged. OTC Medications were advised: The patient is a 29-year-old female presenting with vaginal bleeding and fatigue. On physical exam, the patient is resting comfortably no acute distress. Patient appears nontoxic. She has moist oral mucosa. Sitting upright in a chair speaking in full sentences. PERRL,, bilaterally. HEENT is grossly unremarkable. Heart is regular. Lungs are clear and equal bilaterally. Patient's abdomen is soft and nontender. No CVA tenderness bilaterally. Vital signs are stable at this time. With differential diagnosis including anemia versus dehydration versus electrolyte imbalance versus UTI versus versus hypothyroidism I did obtain CBC, i-STAT BMP, urine dipstick, urine test as well as TSH and T4 levels. CBC shows no evidence of leukocytosis or anemia. I-STAT BMP shows no evidence of electrolyte imbalance. Urine dipstick unremarkable, free from any infection, dehydration or blood. Urine test is negative. TSH and T4 pending. Patient made aware. Patient's workup here is unremarkable. Looks like she was seen in the ER 4 days ago, her CBC and electrolytes were unremarkable at that time as well. I feel the patient is likely suffering from uterine fibroid versus ovarian cyst. Patient needs follow-up with her HOMOEOPATH. Patient cannot get into their office for another month, therefore she will be referred to [facility] HOMOEOP[facility]. However, if patient develops any worsening symptom such as severe abdominal pain, flank pain, syncope she will present to ER urgently. Patient agreeable to plan of care. She stable for discharge home. TSH and T4 levels pending, she will be notified when these are back. Follow-up with primary care. ASSESSMENT/PLAN: 1. Vaginal bleeding - ICD9: 623.8, ICD10: N93.9 (primary diagnosis) - URINALYSIS, DIPSTICK ONLY - HCG, QUALITATIVE, URINE - COMPLETE BLOOD COUNT AND DIFFERENTIAL - ISTAT BMP - THYROID STIMULATING HORMONE - T4 FREE/FREE THYROXINE 2. Fatigue, unspecified type - ICD9: 780.79, ICD10: R53.83 - THYROID STIMULATING HORMONE - T4 FREE/FREE THYROXINE Herlinda Smith PA-C documented in this encounter [place] 03-11-2024 Note [facility] Medical Records Department [address] [place] [id number] History Physical Exam 03/11/24 1055 MR#: [id number] Acct: [id number] Name: SELENE LARKIN Rep #: [id number] : 1995 28 From: Antoinette Pettit MD PCP: Dr. Abdirahman Olivera, DO Status:[facility] Location: [place] [address] HPI - General HPI Narrative SELENE LARKIN, is a 28 F who presents for stage I trial of Axonics management for her urgency and frequency. Informed consent has been obtained. [facility] History Frequency of micturition Urgency of micturition Interstitial cystitis Wears glasses Depression Anxiety Anemia Restless legs Asthma Non-smoker Home Medications ???Medication ???Instructions ???Recorded ???Last Taken ???Type albuterol 90 mcg/actuation aerosol 90 mcg inhalation PRN PRN 07/16/23 Unknown History inhaler shortness of breath or wheezing ibuprofen 200 mg tablet (Advil) 200 mg PO Q8H PRN pain 07/17/23 07/16/23 20:00 History phenazopyridine 95 mg tablet 95 mg PO QHS 03/05/24 Unknown History (URO-PAIN) Allergy/AdvReac Type Severity Reaction Status Date / Time famotidine Allergy Severe Itching Verified 03/11/24 10:22 Penicillins Allergy Intermediate Angioedema Verified 03/11/24 10:22 Surgical History Hx of surgical procedure Hx of cystoscopy History of cystoscopy Hx of wisdom tooth extraction Hx laparoscopic cholecystectomy Hx of laparoscopy History of dilation and curettage History of Social History Smoking Status: Never smoker ROS Constitutional Constitutional: Reports systems reviewed and no addt'l complaints, except as documented; Denies chills, fatigue, fever(s) or weakness Eyes Eyes: Reports systems reviewed and no addt'l complaints, except as documented ENT HEENT: Reports systems reviewed and no addt'l complaints, except as documented Cardiovascular Cardiovascular: Reports systems reviewed and no addt'l complaints, except as documented; Denies abdominal pain, chest pain, diaphoresis or dyspnea Respiratory/Chest Respiratory/Chest: Denies chest congestion or dyspnea Gastrointestinal Gastrointestinal: Denies abdominal pain, change in bowel habits, nausea or vomiting Genitourinary Genitourinary: Reports urinary frequency and urinary urgency Musculoskeletal Musculoskeletal: Reports systems reviewed and no addt'l complaints, except as documented Integumentary Integumentary: Reports systems reviewed and no addt'l complaints, except as documented Neurologic Neurologic: Reports systems reviewed and no addt'l complaints, except as documented Psychiatric Psychiatric: Reports systems reviewed and no addt'l complaints, except as documented Endocrine Endocrinology: Reports systems reviewed and no addt'l complaints, except as documented Hematologic/Lymphatic Hematologic/Lymphatic: Reports systems reviewed and no addt'l complaints, except as documented Allergic/Immunologic Allergic/Immunologic: Reports systems reviewed and no addt'l complaints, except as documented Vital Signs Vital Signs Vital Signs: 03/11/24 10:24 03/11/24 10:24 Temperature 98 F Temperature Source Temporal Pulse Rate 65 Respiratory Rate 16 Respiratory Pattern Normal Blood Pressure 113/72 Blood Pressure Mean 85 Blood Pressure Source Monitor Blood Pressure Position Semi-Fowlers Blood Pressure Location Left Arm Weight Weight: 70.2 kg Body Mass Index (BMI) 27.3 Physical Exam Const alert, oriented x3 and no apparent distress General Appearance: cooperative, comfortable and well kempt HEENT normocephalic, head/scalp atraumatic, hearing grossly normal bilaterally, external ears normal, external nose normal and moist oral mucous membranes Eyes General Eye: normal appearance of both eyes Neck supple General: normal visual inspection and trachea midline Lymph Lymphatic: no lymphedema noted Chest inspection of chest normal Resp normal respiratory effort, normal air movement and no retractions Cardio regular rate GI soft to palpation, non-tender and non-distended no CVA tenderness and external exam normal Back/Spine no CVA tenderness Extremity normal to inspection Skin no rashes or lesions noted, no wounds, no jaundice, no petechiae and no mottling Neuro oriented x3 and CN's II-XII intact bilaterally Psych mental status grossly normal and thought process normal Results Lab / Micro Data Labs: Laboratory Results - last 24 hr 03/11/24 10:05: Urine Test Negative Assessment Plan Assessment/Plan (1) Urgency of micturition: (2) Frequency of micturition: PLAN: Plan Proceed with stage I Axonics trial as scheduled (more content not included)... [facility] 01-18-2024 Note HNO ID: [id number] Author: PAUL GARCIA Tech Service: ? Author Type: Skidder Lever Operator Type: Progress Notes Filed: 01/18/2024 03:55 Note Text: Radiology Service Progress Note PATIENT NAME: Selene Larkin DATE OF SERVICE: January 18, 2024 TIME: 3:55 AM PATIENT IDENTITY VERIFICATION COMPLETED USING TWO (2) IDENTIFIERS: Name and Date of confirmed by patient verbally and Name and Date of confirmed by identification band. FALL SCREENING: Has the patient had 2 falls in the last year or 1 fall with injury or currently using an Ambulatory Assistive Device (Walker, Cane, Wheelchair, Crutches, etc.)? No PATIENT GENDER DATA: Female. status: : No status: NO. PATIENT RELEVANT IMPLANT DATA REVIEWED: Yes PATIENT PRESENTS WITH AN IMPLANTABLE OR ATTACHED TOGGLER: No RADIOLOGY DEPARTMENT: CT; Exam(s) Completed: Brain PERIPHERAL IV DATA: Not applicable SIGNED BY: RT Theresa (R)(CT) January 18, 2024 3:55 AM [facility] 07-17-2023 Discharge summary Note Date/Time July 17, 2023 7:58am [facility] Medical Records Department [address] [place] [address] Instructions for Home/Discharge Instructions 07/17/23 0757 MR#: [id number] Acct: [id number] Name: SELENE LARKIN Rep #:[id number] : 1995 From: Antoinette Corona PCP: Dr. Abdirahman Olivera, DO Status:REG S DC Discharge Instructions Diet Discharge Diet: No restrictions Activity Discharge Activity: Return to Normal Activity Dressing / Incision Call your doctor if you observe: Fever of 101 or Higher, Inability to urinate and Inability to have a bowel movement Follow Up Care Please Follow Up With: Antoinette Pettit MD When: The office will call the patient to make follow-up arrangements. Test Results: Test results from this visit will be discussed in further detail at your follow-up appointment, if applicable. Discharge Plan Admission Attending Provider: Antoinette Pettit Primary Care Provider: Abdirahman Olivera Discharge Orders/Prescriptions Prescriptions: New sulfamethoxazole-trimethoprim [sulfamethoxazole-trimethoprim] 800-160 mg tablet 1 tab PO BID 3 Days Qty: 6 0RF oxycodone-acetaminophen [Percocet] 5-325 mg tablet 1 tab PO Q8H PRN (Reason: pain) 3 Days Qty: 10 0RF Continued vit,itoq60-ovqh-hicac 1 TABLET tablet 1 tab PO DAILY Gemtesa 75 mg tablet 75 mg PO DAILY ferrous sulfate [FeroSul] 325 mg (65 mg iron) tablet 325 mg PO DAILY Patient Comments: take 1 tablet by mouth twice a day albuterol 90 mcg/actuation aerosol 90 mcg inhalation PRN PRN (Reason: shortness of breath or wheezing) ibuprofen [Advil] 200 mg tablet 200 mg PO Q8H PRN (Reason: pain) Referrals / Follow Up: Abdirahman Olivera DO [Primary Care Provider] - Disposition Disposition (needs filled in before D/C Order can be placed): Home, Self Care 07/17/23 0840<Electronically signed by Antoinette Pettit MD>Antoinette Pettit MD CC: Dr. Abdirahman Olivera DO ~ Signed [facility] Work Phone: 1(705) 630-437901-13-2024 Note. MICRO - Microbiology PROCEDURE: Urine Culture [*1] SOURCE: Urine, Clean Catch BODY SITE: COLLECTED DATE/TIME: 05/29/2023 14:34 EST RECEIVED DATE/TIME: 05/29/2023 18:44 EST START DATE/TIME: 05/29/2023 18:44 EST FREE TEXT SOURCE: FINAL REPORTS Final Report [] Verified Date/Time/Personnel: 05/31/2023 14:34 EST 50,000 - 100,000 cfu/ml Mixed growth consistent with normal urogenital derrick. including 1,000 cfu/ml Group B Beta Hemolytic Strep (Strep agalactiae) Sensitivity testing is not recommended for one of the following reasons: 1. Established susceptibility patterns are available or 2. Interpretative criteria are not available. PRELIMINARY REPORTS Preliminary Report [] Verified Date/Time/Personnel: 05/30/2023 08:51 EST Culture results pending. Performing Locations *1: This test was performed at: [facility], [address] [place] [address], [address] , [facility] ([place])02-13-2023 Telephone encounter Note* Telephone Encounter - Gabby Martinez - 02/13/2023 3:30 PM EDT Patient's due date has passed. [id number] Miscellaneous Notes* Telephone Encounter - Gabby Martinez - 02/13/2023 3:30 PM EDT Patient's due date has passed. * Telephone Encounter - Gabby Martinez - 01/30/2023 3:06 PM EDT Name of caller: Selene Contact phone number: [phone] Relationship to Patient: patient Provider: not established Practice: [facility] Chief Complaint/Reason for Call: Selene is interested in transferring to [facility] location from Dr. Regalado in [place]. She is 37w OB. Due date is 02/11/23 and expresses concern about heart rate dropping from 160 to 40 last week. She is currently scheduled for with her current provided. Per Nilsa, caller informed that records would need to be reviewed and appt approved prior to scheduling. Records in route. Please contact caller to follow up. Best time of day caller can be reached: any Patient advised that office/PCP has 24-48 business hours to return their call: No documented in this [facility]09-22-2023 Hospital Discharge instructions Patient Education 02/07/2023 09:27:56 Tubal Ligation, Care After Tubal Ligation, Care After This sheet gives you information about how to care for yourself after your procedure. Your health care provider may also give you more specific instructions. If you have problems or questions, contact your health care provider. What can I expect after the procedure? After the procedure, you may have: A sore throat. Bruising or pain in your back. Nausea or vomiting. Dizziness. Mild abdominal discomfort or pain, such as cramping, gas pain, or feeling bloated. Soreness around the incision area. Tiredness. Pain in your shoulders. Follow these instructions at home: Medicines Ask your health care provider if the medicine prescribed to you: ?Requires you to avoid driving or using heavy machinery. ?Can cause constipation. You may need to take actions to prevent or treat constipation, such as: ?Drink enough fluid to keep your urine pale yellow. ?Take xbzf-vys-wtmwpmq or prescription medicines. ?Eat foods that are high in fiber, such as beans, whole grains, and fresh fruits and vegetables. ?Limit foods that are high in fat and processed sugars, such as fried or sweet foods. Do not take aspirin because it can cause bleeding. Activity Rest for the remainder of the day. Return to your normal activities as told by your health care provider. Ask your health care provider what activities are safe for you. Do not have sex, douche, or put a tampon or anything else in your vagina for 6 weeks or as long as told by your health care provider. Do not lift anything that is heavier than your baby for 2 weeks, or the limit that you are told, until your health care provider says that it is safe. Incision care Follow instructions from your health care provider about how to take care of your incision. Make sure you: ?Wash your hands with soap and water before and after you change your bandage (dressing). If soap and water are not available, use hand glass driller. ?Change your dressing as told by your health care provider. ?Leave stitches (sutures), skin glue, or adhesive strips in place. These skin closures may need to stay in place for 2 weeks or longer. If adhesive strip edges start to loosen and curl up, you may trim the loose edges. Do not remove adhesive strips completely unless your health care provider tells you to do that. Check your incision area every day for signs of infection. Check for: ?Redness, swelling, or pain. ?Fluid or blood. ?Warmth. ?Pus or a bad smell. Other Instructions Do not take baths, swim, or use a hot tub until your health care provider approves. Ask your healthcare provider if you may take showers. You may only be allowed to take sponge baths. Keep all follow-up visits as told by your health care provider. This is important. Contact a health care provider if: You have redness, swelling, or pain around your incision. Your incision feels warm to the touch. Your pain does not improve after 2 3 days. You have a rash. You repeatedly become dizzy or lightheaded. Your pain medicine is not helping. You are constipated. Get help right away if you: Have a fever. Faint. Have pain in your abdomen that gets worse. Have fluid or blood coming from your incision. You have pus or a bad smell coming from your incision. The edges of your incision break open after the sutures have been removed. Have shortness of breath or trouble breathing. Have chest pain or leg pain. Have ongoing nausea or diarrhea. Summary Mild abdominal discomfort is common after this procedure. Contact your health care provider if you experience problems or have concerns. Do not lift anything that is heavier than your baby for 2 weeks, or the limit that you are told, until your health care provider says that it is safe. Keep all follow-up visits as told by your health care provider. This is important. This information is not intended to replace advice given to you by your health care provider. Make sure you discuss any questions you have with your health care provider. Document Released: 11/03/2012 Document Revised: 10/18/2019 Document Reviewed: 03/25/2019 [employer] Patient Education 2020 Vend. 02/07/2023 09:27:51 Delivery, Care After Delivery, Care After This sheet gives you information about how to care for yourself after your procedure. Your health care provider may also give you more specific instructions. If you have problems or questions, contact your health care provider. What can I expect after the procedure? After the procedure, it is common to have: A small amount of blood or clear fluid coming from the incision. Some redness, swelling, and pain in your incision area. Some abdominal pain and soreness. Vaginal bleeding (lochia). Even though you did not have a vaginal delivery, you will still have vaginal bleeding and discharge. Pelvic cramps. Fatigue. You may have pain, swelling, and discomfort in the tissue between your vagina and your anus (perineum) if: Your was unplanned, and you were allowed to labor and push. An incision was made in the area (episiotomy) or the tissue tore during attempted vaginal delivery. Follow these instructions at home: Incision care Follow instructions from your health care provider about how to take care of your incision. Make sure you: ?Wash your hands with soap and water before you change your bandage (dressing). If soap and water are not available, use hand glass driller. ?If you have a dressing, change it or remove it as told by your health care provider. ?Leave stitches (sutures), skin eliseo, skin glue, or adhesive strips in place. These skin closures may need to stay in place for 2 weeks or longer. If adhesive strip edges start to loosen and curl up, you may trim the loose edges. Do not remove adhesive strips completely unless your health care provider tells you to do that. Check your incision area every day for signs of infection. Check for: ?More redness, swelling, or pain. ?More fluid or blood. ?Warmth. ?Pus or a bad smell. Do not take baths, swim, or use a hot tub until your health care provider says it's okay. Ask your health care provider if you can take showers. When you cough or sneeze, hug a pillow. This helps with pain and decreases the chance of your incision opening up (dehiscing). Do this until your incision heals. Medicines Take yfmg-wxy-mlteadv and prescription medicines only as told by your health care provider. If you were prescribed an antibiotic medicine, take it as told by your health care provider. Do notstop taking the antibiotic even if you start to feel better. Do not drive or use heavy machinery while taking prescription pain medicine. Lifestyle Do not drink alcohol. This is especially important if you are or taking pain medicine. Do not use any products that contain nicotine or tobacco, such as cigarettes, e- cigarettes, and chewing tobacco. If you need help quitting, ask your health care provider. Eating and drinking Drink at least 8 eight-ounce glasses of water every day unless told not to by your health care provider. If you breastfeed, you may need to drink even more water. Eat high-fiber foods every day. These foods may help prevent or relieve constipation. High-fiber foods include: ?Whole grain cereals and breads. ?Brown rice. ?Beans. ?Fresh fruits and vegetables. Activity If possible, have someone help you care for your baby and help with household activities for at least a few days after you leave the hospital. Return to your normal activities as told by your health care provider. Ask your health care provider what activities are safe for you. Rest as much as possible. Try to rest or take a nap while your baby is sleeping. Do not lift anything that is heavier than 10 lbs (4.5 kg), or the limit that you were told, until your health care provider says that it is safe. Talk with your health care provider about when you can engage in sexual activity. This may depend on your: ?Risk of infection. ?How fast you heal. ?Comfort and desire to engage in sexual activity. General instructions Do not use tampons or douches until your health care provider approves. Wear loose, comfortable clothing and a supportive and well-fitting bra. Keep your perineum clean and dry. Wipe from front to back when you use the toilet. If you pass a blood clot, save it and call your health care provider to discuss. Do not flush bloodclots down the toilet before you get instructions from your health care provider. Keep all follow-up visits for you and your baby as told by your health care provider. This is important. Contact a health care provider if: You have: ?A fever. ?Bad-smelling vaginal discharge. ?Pus or a bad smell coming from your incision. ?Difficulty or pain when urinating. ?A sudden increase or decrease in the frequency of your bowel movements. ?More redness, swelling, or pain around your incision. ?More fluid or blood coming from your incision. ?A rash. ?Nausea. ?Little or no interest in activities you used to enjoy. ?Questions about caring for yourself or your baby. Your incision feels warm to the touch. Your breasts turn red or become painful or hard. You feel unusually sad or worried. You vomit. You pass a blood clot from your vagina. You urinate more than usual. You are dizzy or light-headed. Get help right away if: You have: ?Pain that does not go away or get better with medicine. ?Chest pain. ?Difficulty breathing. ?Blurred vision or spots in your vision. ?Thoughts about hurting yourself or your baby. ?New pain in your abdomen or in one of your legs. ?A severe headache. You faint. You bleed from your vagina so much that you fill more than one sanitary pad in one hour. Bleeding should not be heavier than your heaviest period. Summary After the procedure, it is common to have pain at your incision site, abdominal cramping, and slight bleeding from your vagina. Check your incision area every day for signs of infection. Tell your health care provider about any unusual symptoms. Keep all follow-up visits for you and your baby as told by your health care provider. This information is not intended to replace advice given to you by your health care provider. Make sure you discuss any questions you have with your health care provider. Document Released: 01/25/2003 Document Revised: 11/11/2018 Document Reviewed: 11/11/2018 [employer] Patient Education 2020 Vend. 02/07/2023 09:27:40 7b- Depression and Blues (02/2020) (CUSTOM) Barbara Depression and Blues All mothers are at risk of developing depression or the blues. These mood changes can occur right after giving , or they may occur many months after giving . blues or depression can be mild or severe. Additionally, depression can goaway rather quickly, or it can be a long-term condition. CAUSES Raised hormone levels and the rapid drop in those levels are thought to be a main cause of depression and blues. A number of hormones change during and after . Estrogenand progesterone usually decrease right after delivery. The levels of thyroid hormone and various cortisol steroids also rapidly drop. Other factors that play a role in these mood changes include major life events and genetics. RISK FACTORS If you have any of the following risks for blues or depression, know what symptoms to watch out for during the period. Risk factors that may increase the likelihood of getting blues or depression include: Having a personal or family history of depression. Having depression while being . Having premenstrual mood issues or mood issues related to oral contraceptives. Having a lot of life stress. Having marital conflict. Lacking a social support network. Having health problems, such as diabetes. SIGNS AND SYMPTOMS Symptoms of blues include: Brief changes in mood, such as going from extreme happiness to sadness. Decreased concentration. Difficulty sleeping. Crying spells, tearfulness. Irritability. Anxiety. Symptoms of depression typically begin within the first month after giving . These symptoms include: Difficulty sleeping or excessive sleepiness. Marked weight loss. Agitation. Feelings of worthlessness. Lack of interest in activity or food. psychosis is a very serious condition and can be dangerous. Fortunately, it is rare. Displaying any of the following symptoms is cause for immediate medical attention. Symptoms of psychosis include: Hallucinations and delusions. Bizarre or disorganized behavior. Confusion or disorientation. DIAGNOSIS A diagnosis is made by an evaluation of your symptoms. There are no medical or lab tests that lead to a diagnosis, but there are various questionnaires that a health care provider may use to identifythose with blues, depression, or psychosis. Often, a screening tool called the [place] Depression Scale is used to diagnose depression in the period. TREATMENT blues usually goes away on its own in 1 2 weeks. Social support is often all that is needed. You will be encouraged to get adequate sleep and rest. Occasionally, you may be given medicinesto help you sleep. depression requires treatment because it can last several months or longer if it is not treated. Treatment may include individual or group therapy, medicine, or both to address any social,physiological, and psychological factors that may play a role in the depression. Regular exercise, a healthy diet, rest, and social support may also be strongly recommended. psychosis is more serious and needs treatment right away. Hospitalization is often needed. HOME CARE INSTRUCTIONS Get as much rest as you can. Exercise regularly. Some women find yoga and walking to be beneficial. Eat a balanced and nourishing diet. Do little things that you enjoy. Have a cup of tea, take a bubble bath, read your favorite magazine, or listen to your favorite music. Avoid alcohol. Ask for help with programs director, cooking, grocery shopping, or running errands as needed. Do nottry to do everything. Talk to people close to you about how you are feeling. Get support from your partner, family members, and friends. Try to stay positive in how you think. Think about the things you are grateful for. Do not spend a lot of time alone. Only take gnwr-dnb-kgxvlzc or prescription medicine as directed by your health care provider. Keep all your appointments. Let your health care provider know if you have any concerns. SEEK MEDICAL CARE IF: You are having a reaction to or problems with your medicine. SEEK IMMEDIATE MEDICAL CARE IF: You have suicidal feelings. You think you may harm yourself or someone else. MAKE SURE YOU: Understand these instructions. Will watch your condition. Will get help right away if you are not doing well or get worse. Resource: Exit[employer] Patient Information 2015 [employer]prim[employer]. This information is not intended to replace advicegiven to you by your health care provider. Make sure you discuss any questions you have with your health care provider. Follow Up Care 11/27/2022 12:36:59 With:JOLIE CONTEH LEAF CONDITIONER-CNM Address: [address] [facility], [address] Brando Regalado, [place] [address]- [phone] When:03/21/2023 With:CONTEH, JOLIEDALTON Centeno APRN-CLEMM Address: [address] [facility], [address] Brando Reaglado, [place] [address]- [phone] When:02/21/2023 [facility] 09-21-2023 Anesthesiology Consult note Patient: SELENE LARKIN Age: 27 years Sex: Female : 1995 Associated Diagnoses: None Author: MAHAD GREGORY APRN-PRODUCT DEVELOPMENT ASSISTANT Assessment Postanesthesia assessment Vitals: Vital signs from flowsheet : Vital Signs 02/06/2023 13:50 EDT Heart Rate Monitored 75 bpm bpm Respiratory Rate - Anes 19 br/min br/min 02/06/2023 13:45 EDT Temperature (Route Not Specified) 36 DegC DegC Heart Rate Monitored 66 bpm bpm Respiratory Rate - Anes 18 br/min br/min Systolic Blood Pressure Non-Invasive 111 mmHg mmHg Diastolic Blood Pressure Non-Invasive 64 mmHg mmHg 02/06/2023 13:40 EDT Heart Rate Monitored 74 bpm bpm Respiratory Rate - Anes 18 br/min br/min Systolic Blood Pressure Non-Invasive 115 mmHg mmHg Diastolic Blood Pressure Non-Invasive 70 mmHg mmHg 02/06/2023 13:35 EDT Heart Rate Monitored 70 bpm bpm Respiratory Rate - Anes 17 br/min br/min Systolic Blood Pressure Non-Invasive 116 mmHg mmHg Diastolic Blood Pressure Non-Invasive 69 mmHg mmHg 02/06/2023 13:30 EDT Temperature (Route Not Specified) 36 DegC DegC Heart Rate Monitored 89 bpm bpm Respiratory Rate - Anes 19 br/min br/min Systolic Blood Pressure Non-Invasive 107 mmHg mmHg Diastolic Blood Pressure Non-Invasive 68 mmHg mmHg 02/06/2023 13:25 EDT Heart Rate Monitored 90 bpm bpm Respiratory Rate - Anes 19 br/min br/min Systolic Blood Pressure Non-Invasive 122 mmHg mmHg Diastolic Blood Pressure Non-Invasive 67 mmHg mmHg 02/06/2023 13:20 EDT Heart Rate Monitored 92 bpm bpm Respiratory Rate - Anes 0 br/min br/min Systolic Blood Pressure Non-Invasive 112 mmHg mmHg Diastolic Blood Pressure Non-Invasive 65 mmHg mmHg 02/06/2023 13:15 EDT Temperature (Route Not Specified) 36 DegC DegC Heart Rate Monitored 68 bpm bpm Respiratory Rate - Anes 0 br/min br/min Systolic Blood Pressure Non-Invasive 107 mmHg mmHg Diastolic Blood Pressure Non-Invasive 65 mmHg mmHg 02/06/2023 13:10 EDT Heart Rate Monitored 71 bpm bpm Respiratory Rate - Anes 0 br/min br/min Systolic Blood Pressure Non-Invasive 111 mmHg mmHg Diastolic Blood Pressure Non-Invasive 68 mmHg mmHg 02/06/2023 13:05 EDT Heart Rate Monitored 75 bpm bpm Respiratory Rate - Anes 0 br/min br/min Systolic Blood Pressure Non-Invasive 109 mmHg mmHg Diastolic Blood Pressure Non-Invasive 57 mmHg mmHg 02/06/2023 13:00 EDT Temperature (Route Not Specified) 36 DegC DegC Heart Rate Monitored 77 bpm bpm Respiratory Rate - Anes 0 br/min br/min Systolic Blood Pressure Non-Invasive 111 mmHg mmHg Diastolic Blood Pressure Non-Invasive 62 mmHg mmHg 02/06/2023 12:55 EDT Heart Rate Monitored 80 bpm bpm Respiratory Rate - Anes 0 br/min br/min Systolic Blood Pressure Non-Invasive 115 mmHg mmHg Diastolic Blood Pressure Non-Invasive 61 mmHg mmHg 02/06/2023 12:53 EDT Systolic Blood Pressure Non-Invasive 111 mmHg mmHg Diastolic Blood Pressure Non-Invasive 66 mmHg mmHg 02/06/2023 12:51 EDT Systolic Blood Pressure Non-Invasive 117 mmHg mmHg Diastolic Blood Pressure Non-Invasive 63 mmHg mmHg 02/06/2023 12:50 EDT Respiratory Rate - Anes 0 br/min br/min 02/06/2023 9:30 EDT Temperature Oral 36.8 DegC Heart Rate Monitored 79 bpm Respiratory Rate 18 br/min Systolic Blood Pressure Non-Invasive 115 mmHg Diastolic Blood Pressure Non-Invasive 67 mmHg , Measurements from flowsheet . Mental status: alert & oriented x 4. Respiratory function: respirations are non-labored. Respiratory support: none. CV function: Normal rate. Cardiovascular support: none. Pain. Nausea status: see nursing documentation of medications. Postoperative hydration status: within normal limits. Digitally Signed by MAHAD GREGORY on 02/06/2023 03:10 PM [facility]09-21-2023 Evaluation + Plan noteExtracted from: Title:Clinical Document Author:BRANDO REGALADO:02/06/23 [facility] ADMISSION HISTORY AN D CAMILLA S: Patient is a 27 year old AB1 female at 39.2 wks GA with EDC of 02/11/2023 confirmed by first trimester ultrasound who present to [facility] for elective repeat section. complications include: Previous x 1 Maternal medications include: PNV Blood work: Blood type: A positive; Rubella status: immune; HBsAg status: negative; HIV status: negative; GBS status: positive;RPR: non-reactive O: Vitals Signs(Last 24 hrs)__Last Charted Minimum Maximum Temp36.8(FEB 06 09:30)36.8(FEB 06:30)36.8(FEB 06:30) Heart Rate79(FEB 06 09:30)79(FEB 06 09:30)79(FEB 06 09:30) Resp Rate18(FEB 06:30)18(FEB 06 09:30)18(FEB 06 09:30) ETR504(FEB 06 09:30)115(FEB 06 09:30)115(FEB 06 09:30) DBP67(FEB 06:30)67(FEB 06 09:30)67(FEB 06 09:30) Gen: alert, awake, in no distress Lungs: clear to auscultation bilaterally, equal breath sounds, no wheezes or crackles. Heart: RRR without murmur Abdomen: gravid uterus : cervical exam: not indicated Membranes: intact FHR: category 1 Stacy: no contractions Ext: no edema WBC: 10.7 10^3/mcL (02/06/23 09:35:00) RBC: 3.9 10^6/mcL Low (02/06/23 09:35:00) Hgb: 11.4 G/dL Low (02/06/23 09:35:00) Hct: 33.7 % Low (02/06/23 09:35:00) MCV: 86.4 fL (02/06/23 09:35:00) MCH: 29.3 pg (02/06/23 09:35:00) MCHC: 33.9 G/dL (02/06/23 09:35:00) RDW: 14.3 % (02/06/23 09:35:00) Platelet: 244 10^3/mcL (02/06/23 09:35:00) MPV: 7.3 fL Low (02/06/23 09:35:00) Neutrophil %: 72.1 % (02/06/23 09:35:00) Lymphocyte %: 17.3 % (02/06/23 09:35:00) Monocyte %: 8.8 % (02/06/23 09:35:00) Eosinophil %: 1.2 % (02/06/23 09:35:00) Basophil %: 0.6 % (02/06/23 09:35:00) Neutrophil, Absolute: 7.7 10^3/mcL High (02/06/23 09:35:00) Lymphocyte, Absolute: 1.9 10^3/mcL (02/06/23 09:35:00) Monocyte, Absolute: 0.9 10^3/mcL (02/06/23 09:35:00) Eosinophil, Absolute: 0.1 10^3/mcL (02/06/23 09:35:00) Basophil, Absolute: 0.1 10^3/mcL (02/06/23 09:35:00) Platelet Estimate: Adequate (02/06/23 09:35:00) UA Specimen Type: Clean Catch (01/22/23 18:50:00) UA Color: Yellow (01/22/23 18:50:00) UA Appear: Clear (01/22/23 18:50:00) UA Spec Grav: 1.015 (01/22/23 18:50:00) UA Glucose: Negative. (01/22/23 18:50:00) UA Bili: Negative. (01/22/23 18:50:00) UA Ketones: Negative. (01/22/23 18:50:00) UA Blood: Negative. (01/22/23 18:50:00) UA pH: 6.0 (01/22/23 18:50:00) UA Protein: Negative.1 (01/22/23 18:50:00) UA Urobilinogen: 0.2 (01/22/23 18:50:00) UA Nitrite: Negative. (01/22/23 18:50:00) UA Leuk Est: Negative. (01/22/23 18:50:00) ABO/Rh Interp: A POS (02/06/23 09:35:00) Antibody Screen Gel: Negative ABSC (02/06/23 09:35:00) Blood Type, External: A positive (02/06/23 09:36:00) Rubella, External: Immune (02/06/23 09:36:00) Rubella Date Performed: 07/19/22 (02/06/23 09:36:00) HIV Antibodies, External: Negative (02/06/23 09:36:00) Group B Strep, External: Positive (02/06/23 09:36:00) Group B Strep Date Performed: 07/15/22 (02/06/23 09:36:00) Hepatitis B, External: Negative (02/06/23 09:36:00) Hepatitis B Date Performed: 07/19/22 (02/06/23 09:36:00) RPR, External: Nonreactive (02/06/23 09:36:00) RPR Date Performed: 11/22/22 (02/06/23 09:36:00) Medication List Active Medications Ordered carboprost: 250 mcg, 1 mL, Intramuscular, Once, PRN: Other (see order comments). citric acid-sodium citrate: 30 mL, Oral, AsDirected, PRN: Gastric Upset. clindamycin: 900 mg, 50 mL, 100 mL/hr, IV Piggyback, PREOP pharm. Lactated Ringers Infusion: 500 mL, IV Bolus, AsDirected, PRN: Other (see order comments). Lactated Ringers Infusion 1,000 mL: 125 mL/hr, Intravenous. lidocaine: 20 mg, 2 mL, Perineum, AsDirected, PRN: to perineal sutures. methylergonovine: 0.2 mg, 1 mL, Intramuscular, Once, PRN: Other (see order comments). miSOPROStol: 1,000 mcg, 5 tab(s), Rectal, Once, PRN: Other (see order comments). ondansetron: 4 mg, 2 mL, IV Push, q4h, PRN: Nausea. oxytocin: 20 unit(s), 2 mL, Intramuscular, Once, PRN: Other (see order comments). oxytocin 20 unit(s) + LR Premix Diluent 1,000 mL: 999 mL/hr, Intravenous. terbutaline: 0.25 mg, 0.25 mL, Subcutaneous, AsDirected, PRN: Other (see order comments). tranexamic acid: 1 gram(s), 100 mL, 300 mL/hr, IV Piggyback, AsDirected, PRN: Other (see order comments). Documented albuterol: 1 puff(s), Inhalation, q4h, PRN: as needed for wheezing, 18 gram(s), 0 Refill(s). cholecalciferol: 125 mcg, 1 cap(s), Oral, qWeek, 0 Refill(s). ferrous sulfate: 325 mg, 1 tab(s), Oral, BIDM, Take with food., 60 tab(s), 3 Refill(s). multivitamin, : Oral, qDay, 0 Refill(s). Medications Inactivated in the Last 72 Hours acetaminophen: Miscellaneous, Once. BUPivacaine: Miscellaneous, Once. BUPivacaine liposome: Miscellaneous, Once. clindamycin: 900 mg, 6 mL, IV Piggyback, PREOP pharm. dexAMETHasone: Miscellaneous, Once. ePHEDrine: Miscellaneous, Once. morphine: Miscellaneous, Once. Sodium Chloride 0.9% intravenous solution: Miscellaneous, Once. A: 1. 27 y/o female at 39.2wks GA 2. Previous section x 1 P: 1. Admit to L&D 2. Continuous external monitoring 3. IV placement 4. For repeat . Pt was considering tubal ligation but declined. 5. Anesthesia consult . Future Appointments Appointment Date:04/07/2023 03:40:00 PM Scheduled Provider:LUIS REESE Location:UROLOGY Appointment Type:URO OV 20 min Future Scheduled Tests Radiology* US OB Limited/Transvaginal 09/12/22 * US OB > 14 weeks 11/15/22 * US Obstetrical 07/20/22 * US Transvaginal OB 07/25/22 [facility] 09-21-2023 Anesthesiology Consult note Patient: SELENE LARKIN Age: 27 years Sex: Female : 1995 Associated Diagnoses: None Author: MAHAD GREGORY APRN-BEVERLEY Preoperative Information Time of last food or liquid consumption: 02/06/2023 00:00:00 Anesthesia history Patient's history: negative. Family's history: negative. Health Status Allergies: Allergic Reactions (Selected) Severity Not Documented Penicillin- Arm swelling., Allergies (1) ActiveReaction penicillinarm swelling Current medications: (Selected) Inpatient Medications Ordered Benadryl: 12.5 mg, 0.25 mL, IV Push, q6h, PRN: Itching Bicitra: 30 mL, Oral, AsDirected, PRN: Gastric Upset Brethine: 0.25 mg, 0.25 mL, Subcutaneous, AsDirected, PRN: Other (see order comments) Cleocin Phosphate: 900 mg, 50 mL, 100 mL/hr, IV Piggyback, PREOP pharm Cytotec: 1,000 mcg, 5 tab(s), Rectal, Once, PRN: Other (see order comments) Duramorph PF: 0.225 mg, 0.23 mL, Intrathecal, Once Hemabate: 250 mcg, 1 mL, Intramuscular, Once, PRN: Other (see order comments) LR 1,000 mL: 125 mL/hr, Intravenous LR 500 mL Bolus: 500 mL, IV Bolus, AsDirected, PRN: Other (see order comments) Methergine: 0.2 mg, 1 mL, Intramuscular, Once, PRN: Other (see order comments) Narcan: 0.1 mg, 0.25 mL, IV Push, AsDirected, PRN: Control symptoms Nubain: 5 mg, 0.5 mL, IV Push, q6h, PRN: Itching Ofirmev IVPB: 1,000 mg, 100 mL, 400 mL/hr, IV Piggyback, q6h, PRN: Pain Oxytocin for IV (mL/hr) 20 unit(s) + LR Premix Diluent 1,000 mL: 999 mL/hr, Intravenous Pharmacy See ORDER COMMENTS: 1 EA, Miscellaneous, Daily Pitocin: 20 unit(s), 2 mL, Intramuscular, Once, PRN: Other (see order comments) Xylocaine HCl 1% injectable solution: 20 mg, 2 mL, Perineum, AsDirected, PRN: to perineal sutures Zofran: 4 mg, 2 mL, IV Push, q4h, PRN: Nausea Zofran: 4 mg, 2 mL, IV Push, q6h, PRN: Nausea/Vomiting morphine: 2 mg, 1 mL, IV Push, q1h, PRN: Pain, breakthrough tranexamic acid 1 g / 100 mL 0.7% NaCl PMX: 1 gram(s), 100 mL, 300 mL/hr, IV Piggyback, AsDirected,PRN: Other (see order comments) Documented Medications Documented IRON (ferrous sulfate 325 mg) 65 mg oral tablet: 325 mg, 1 tab(s), Oral, BIDM, Take with food., 60 tab(s), 3 Refill(s) AD: Oral, qDay, 0 Refill(s) Vitamin D3: 125 mcg, 1 cap(s), Oral, qWeek, 0 Refill(s) albuterol MDI (90 mcg/inh) CFC free inhalation aerosol: 1 puff(s), Inhalation, q4h, PRN: as needed for wheezing, 18 gram(s), 0 Refill(s), Medications (21) Active Scheduled: (3) clindamycin PMX 900 mg 50 mL, IV Piggyback, PREOP pharm Misc communication order 1 EA, Miscellaneous, Daily morphine 10 mg/10mL preservative-free 0.225 mg 0.23 mL, Intrathecal, Once Continuous: (2) Lactated Ringers 1,000 mL 1,000 mL, Intravenous, 125 mL/hr Oxytocin 20 units in Lactated Ringers 1000 mL 20 unit(s) + LR Premix Diluent 1,000 mL 1,000 mL, Intravenous, 999 mL/hr PRN: (16) acetaminophen PMX 1,000 mg 100 mL, IV Piggyback, q6h carboprost 250 mcg/ml 1mL ampule 250 mcg 1 mL, Intramuscular, Once citric acid-sodium citrate 334 mg-500 mg/5 mL (30 mL) Pat UD 30 mL, Oral, AsDirected diphenhyDRAMINE 50 mg/mL (1 mL) INJ 12.5 mg 0.25 mL, IV Push, q6h Lactated Ringers Injection 500 mL * Bolus * 500 mL, IV Bolus, AsDirected lidocaine 1% (MPF) 2 mL vial pf 20 mg 2 mL, Perineum, AsDirected methylergonovine 0.2 mg/mL (1 mL) ampule 0.2 mg 1 mL, Intramuscular, Once misoprostol 200 mcg tablet 1,000 mcg 5 tab(s), Rectal, Once morphine 2 mg/mL 1 mL syringe 2 mg 1 mL, IV Push, q1h nalbuphine 10 mg/mL (1 mL) Solution 5 mg 0.5 mL, IV Push, q6h naloxone 0.4 mg/mL (1mL) vial 0.1 mg 0.25 mL, IV Push, AsDirected ondansetron 2 mg/ 1 mL 2 mL INJ 4 mg 2 mL, IV Push, q4h ondansetron 2 mg/ 1 mL 2 mL INJ 4 mg 2 mL, IV Push, q6h oxytocin 10 units/mL 1 mL vial 20 unit(s) 2 mL, Intramuscular, Once terbutaline 1 mg/ml vial 0.25 mg 0.25 mL, Subcutaneous, AsDirected tranexamic acid PMX 1 gram(s) 100 mL, IV Piggyback, AsDirected Problem list: Medical GBS bacteriuria / SNOMED CT 931300236 / Confirmed BMI 25.0-25.9,adult / SNOMED CT 4571605920 / Confirmed Stress incontinence / SNOMED CT 425045748 / Confirmed Group B streptococcus / SNOMED CT 353764515 / Confirmed Polyuria / SNOMED CT 80336521 / Confirmed / SNOMED CT 486803132 / Confirmed, Active Problems (11) Anemia, iron deficiency Asthma Autism BMI 25.0-25.9,adult Cystitis, interstitial GBS bacteriuria Group B streptococcus Hypoglycemia Polyuria Stress incontinence Histories Past Medical History: Resolved ([id number]): Onset on 06/27/2020 at 25 years. Resolved on 03/21/2021 at 25 years. Comments: 07/27/2020 EST 22:06 EST - SYSTEM System added from documentation. Status documented as Yes on Admission ([id number]): Onset on 01/29/2019 at 23 years. Resolved on 11/02/2019 at 24 years. Comments: 05/13/2019 EST 21:23 EST - SYSTEM System added from documentation. Status documented as Yes on Admission ([id number]): Resolved in 2020 at 23 years. Family History: Asthma Mother Hypertension Mother Grandparent HTN - Hypertension Mother Procedure history: Extraction of wisdom tooth ([id number]) on 02/04/2022 at 26 Years. Dilation and curettage ([id number]) on 05/19/2021 at 25 Years. Comments: 04/04/2022 15:47 RICHARD - Halie Gonzalez LPN 2020 delivery only; ([id number]) on 11/02/2019 at 24 Years. Cholecystectomy ([id number]) on 07/08/2016 at 21 Years. Cystoscopy ([id number]) on 06/27/2014 at 19 Years. Laparoscopy ([id number]) on 12/17/2012 at 17 Years. Comments: 08/05/2019 21:53 EDT - Teressa Thompson RN endometriosis ruled out Social History Social & Psychosocial Habits Alcohol 01/30/2023 Use: Past Substance Abuse 01/30/2023 Use: denies Tobacco 01/30/2023 Tobacco Use: denies Home/Environment 01/30/2023 Domestic Concerns None Living situation: Home/Independent Nutrition/Health 01/30/2023 Type of diet: Regular Appetite Good . Physical Examination Vital Signs 02/06/2023 12:51 EDT Systolic Blood Pressure Non-Invasive 117 mmHg mmHg Diastolic Blood Pressure Non-Invasive 63 mmHg mmHg 02/06/2023 12:50 EDT Respiratory Rate - Anes 0 br/min br/min 02/06/2023 9:30 EDT Temperature Oral 36.8 DegC Heart Rate Monitored 79 bpm Respiratory Rate 18 br/min Systolic Blood Pressure Non-Invasive 115 mmHg Diastolic Blood Pressure Non-Invasive 67 mmHg Vital Signs(last 24 hrs) Last Charted Temp Oral36.8 DegC (FEB 06 09:30) Heart Rate Cdexjgbsr23 bpm (FEB 06 09:30) Resp Rate 18 br/min (FEB 06 09:30) TJO580 mmHg (FEB 06 12:51) DBP63 mmHg (FEB 06 12:51) BMI32.85 (FEB 06 09:36) Measurements from flowsheet : Measurements 02/06/2023 9:36 EDT Height 160 cm Admission Weight 84.1 kg [place] Body Weight 52.38 kg BSA Admission 1.87 Body Mass Index 32.85 kg/m2 General: Alert and oriented. Airway: Normal temporomandibular joint mobility, Normal mouth, Normal neck range of motion. Mallampati classification: III (soft palate, base of uvula visible). Dentition Evaluation: Denies loose/chipped teeth. Respiratory: Respirations are non-labored. Cardiovascular: Normal rate. Neurologic: Alert, Oriented. Review / Management Results review: Labs (Last four charted values) WBC 10.7(FEB 06) Hgb L 11.4(FEB 06) Hct L 33.7(FEB 06) Plt 244(FEB 06) , Lab results 02/06/2023 12:51 EDT Systolic Blood Pressure Non-Invasive 117 mmHg mmHg Diastolic Blood Pressure Non-Invasive 63 mmHg mmHg 02/06/2023 12:50 EDT Respiratory Rate - Anes 0 br/min br/min Oxygen Saturation 96 % % 02/06/2023 12:48 EDT SN - AR - Medication 0.5% BUPIVACAINE 150MG/30ML SN - AR - Route of Administration Local SN - AR - By (Single) SN - AR - By (Single) 02/06/2023 12:46 EDT SN - Proc - Anesthesia Type Spinal SN - Proc - Actual Procedure REPEAT SECTION 02/06/2023 12:45 EDT SN - SP - Prep Agents Chloraprep SN - SP - HR - Method N/A 02/06/2023 12:44 EDT SN - PP - Body Position Supine Standard Intra-op 02/06/2023 12:43 EDT SN - PTCare - Anti-thromboembolism Rhea Sequential Compression Device (SCD) 02/06/2023 12:43 EDT SN - Assess - LOC Alert, Awake SN - Assess - Orientation Oriented X 3 SN - Assess - Post-op Skin Integrity Intact/Dry 02/06/2023 12:42 EDT SN - GCD - Post-operative Diagnosis PREVIOUS SECTION 02/06/2023 12:42 EDT SN - GCD - ASA Class 3 SN - GCD - Case Level Level 3 02/06/2023 12:41 EDT [place] History and Physical 02/06/2023 12:40 EDT SN - TDC - Device Type TRAY LAZO CATH 16F URINEMETER 10/CA [id number] SN - TDC - Location URETHRA SN - TDC - DC'd at End of Case No 02/06/2023 12:40 EDT SN - CAt - Case Attendee SN - CAt - Case Attendee SN - CAt - Case Attendee SN - CAt - Case Attendee SN - CAt - Case Attendee SN - CAt - Case Attendee SN - CAt - Case Attendee SN - CAt - Case Attendee SN - CAt - Case Attendee SN - CAt - Case Attendee SN - CAt - Case Attendee SN - CAt - Case Attendee SN - CAt - Role Performed Primary Surgeon SN - CAt - Role Performed PRODUCT DEVELOPMENT ASSISTANT SN - CAt - Role Performed Work Order Clerk 1 SN - CAt - Role Performed Scrub 1 SN - CAt - Role Performed Counter Help 1 SN - CAt - Role Performed OB RN 02/06/2023 10:11 EDT Uterine Contraction Monitoring Method External toco Uterine Activity Occasional contractions Baby A FHR Baseline: 140 bpm FHR Baseline Variability: Moderate variability FHR Accelerations: Present FHR Deceleration: Absent 02/06/2023 9:36 EDT Blood Type, External A positive Rubella, External Immune Rubella Date Performed 07/19/2022 HIV Antibodies, External Negative Group B Strep, External Positive Group B Strep Date Performed 07/15/2022 Hepatitis B, External Negative Hepatitis B Date Performed 07/19/2022 RPR, External Nonreactive RPR Date Performed 11/22/2022 Designated Person #1 We May Share PHI Designated Person #1 We May Share PHI Designated Person #1 Relationship Spouse Privacy Restrictions Requested None Height 160 cm Admission Weight 84.1 kg [place] Body Weight 52.38 kg BSA Admission 1.87 Body Mass Index 32.85 kg/m2 Expected Outcome Live Patient Type Inpatient Thrombosis Risk Factors (1) or post- less than 1 month Thrombosis Risk Factor Add'l Assessment (1) Varicose veins or current swollen legs (greater than 1 p Thrombosis Risk Score 2 Status Yes Risk Factors, Antepartum Current Preg Group B Streptococcus Movement Present Vaginal bleeding No PPH Risk Medium risk for hemorrhage PPH Medium Risk Factors Prior or uterine surgery Infant Feeding Breast milk, Formula Anesthesia/Pain Medication During Labor Epidural/Spinal Baby For Adoption No Surrogate No Tubal Sterilization Planned No Discharge Physician patti [facility] Participant No Safe Sleep Environment for Baby Yes Safe Sleep Environment Outside Home Yes Maternal Transport No Thoughts of Harming Others - History No Thoughts of Suicide - History No Coping Effective Emotional Abuse History Denies Physical Abuse History Denies Sexual Abuse Denies Hospital Clergy to Visit Patient Verbalizes No Spiritual Needs Financial Concerns Re: Hospital/Disch No Living Situation Home independently Current Home Treatments None Professional Skilled Services None Special Services and Community Resources None Advanced Directives No - refuses information Infectious Disease Symptoms Patient states no symptoms Infectious Disease Recent Exposure No Alcohol and Drug Use No Employee of Institutional Living No Health Care Employee No History of Exposure to TB No History of Positive Chest X-Ray for TB No History of Positive TB Skin Test No Homeless No Known Immunosuppression No Recent Immigrant No Resident of Institutional Living No Bloody Sputum No Fatigue No Fever No Loss of Appetite No Night Sweats No Persistent Cough > 3 Weeks No Weight Loss No Preferred Spoken Language [place]ian Preferred Written Language [place]ian Teaching Evaluation Verbalizes/Nonverbally indicates understanding Safety Brochure Information Reviewed Yes Barbara Moreau Video Viewed No Chief Complaint scheduled section Mode of Arrival Ambulatory Information Given by Patient, Spouse Patient's Current Physicians Dr. Regalado Emergency Contact Number Tiffany Larkin [phone] Reason For Visit OB Belongings At Bedside Luggage Personal Home Medications Received No home medications were brought in Belongings Sent Home None Belongings to Security/Secured in Dept None Discharge To, Anticipated Home independently Other Anticipated Needs After Discharge No Anticoagulants Taken In Past 6 Wks. No Prev Test Positive/Diagnosis w/COVID-19 No Current Quarantine/Isolated any Illness No Any Contact with Sick Animals/Birds No Traveled Anywhere in Last 30 Days No No Able To Drink Order Detail Yes Able To Sign Consents Order Detail Yes Code Status Order Detail Full code IV Order Detail Yes Dialysis Schedule Order Detail N/A Has Diabetes Order Detail No Isolation Precautions Order Detail None Nurse Collect Order Detail 1 Oxygen Order Detail No Order Detail Yes Prior Valve Replacement Order Detail No Transport Mode Order Detail Ambulatory Anesthesia/Transfusions Prior anesthesia Admission Note-Nursing Patient History OB (Modified) 02/06/2023 9:35 EDT WBC 10.7 10^3/mcL RBC 3.90 10^6/mcL LOW Hgb 11.4 G/dL LOW Hct 33.7 % LOW MCV 86.4 fL MCH 29.3 pg MCHC 33.9 G/dL RDW 14.3 % Platelet 244 10^3/mcL MPV 7.3 fL LOW Neutrophil % 72.1 % Lymphocyte % 17.3 % Monocyte % 8.8 % Eosinophil % 1.2 % Basophil % 0.6 % Neutrophil, Absolute 7.7 10^3/mcL HI Lymphocyte, Absolute 1.9 10^3/mcL Monocyte, Absolute 0.9 10^3/mcL Eosinophil, Absolute 0.1 10^3/mcL Basophil, Absolute 0.1 10^3/mcL Platelet Estimate Normal ABO/Rh Interp A POS Antibody Screen Gel Negative ABSC Slide Review Man Indicated 02/06/2023 9:30 EDT Temperature Oral 36.8 DegC Heart Rate Monitored 79 bpm Respiratory Rate 18 br/min Systolic Blood Pressure Non-Invasive 115 mmHg Diastolic Blood Pressure Non-Invasive 67 mmHg Oxygen Therapy Room air . Assessment and Plan [place] [employer]hesi[employer] (ASA) physical status classification: Class III. Anesthetic Preoperative Plan Anesthetic technique: Spinal. Postoperative pain management: duramorph. Informed consent: signed by patient. Digitally Signed by MAHAD GREGORY on 02/06/2023 01:02 PM [facility]09-21-2023 Note [facility] ADMISSION HISTORY AND PHYSICIAL S: Patient is a 27 year old AB1 female at 39.2 wks GA with EDC of 02/11/2023 confirmed by first trimester ultrasound who present to [facility] for elective repeat section. complications include: Previous x 1 Maternal medications include: PNV Blood work: Blood type: A positive; Rubella status: immune; HBsAg status: negative; HIV status: negative; GBS status: positive;RPR: non-reactive O: Vitals Signs(Last 24 hrs)__Last Charted Minimum Maximum Temp36.8(FEB 06 09:30)36.8(FEB 06:30)36.8(FEB 06:30) Heart Rate79(FEB 06:30)79(FEB 06 09:30)79(FEB 06:30) Resp Rate18(FEB 06:30)18(FEB 06 09:30)18(FEB 06 09:30) TIB867(FEB 06:30)115(FEB 06 09:30)115(FEB 06:30) DBP67(FEB 06:30)67(FEB 06 09:30)67(SEP 21 09:30) Gen: alert, awake, in no distress Lungs: clear to auscultation bilaterally, equal breath sounds, no wheezes or crackles. Heart: RRR without murmur Abdomen: gravid uterus : cervical exam: not indicated Membranes: intact FHR: category 1 Stacy: no contractions Ext: no edema WBC: 10.7 10^3/mcL (02/06/23 09:35:00) RBC: 3.9 10^6/mcL Low (02/06/23 09:35:00) Hgb: 11.4 G/dL Low (02/06/23 09:35:00) Hct: 33.7 % Low (02/06/23 09:35:00) MCV: 86.4 fL (02/06/23 09:35:00) MCH: 29.3 pg (02/06/23 09:35:00) MCHC: 33.9 G/dL (02/06/23 09:35:00) RDW: 14.3 % (02/06/23 09:35:00) Platelet: 244 10^3/mcL (02/06/23 09:35:00) MPV: 7.3 fL Low (02/06/23 09:35:00) Neutrophil %: 72.1 % (02/06/23 09:35:00) Lymphocyte %: 17.3 % (02/06/23 09:35:00) Monocyte %: 8.8 % (02/06/23 09:35:00) Eosinophil %: 1.2 % (02/06/23 09:35:00) Basophil %: 0.6 % (02/06/23 09:35:00) Neutrophil, Absolute: 7.7 10^3/mcL High (02/06/23 09:35:00) Lymphocyte, Absolute: 1.9 10^3/mcL (02/06/23 09:35:00) Monocyte, Absolute: 0.9 10^3/mcL (02/06/23 09:35:00) Eosinophil, Absolute: 0.1 10^3/mcL (02/06/23 09:35:00) Basophil, Absolute: 0.1 10^3/mcL (02/06/23 09:35:00) Platelet Estimate: Adequate (02/06/23 09:35:00) UA Specimen Type: Clean Catch (01/22/23 18:50:00) UA Color: Yellow (01/22/23 18:50:00) UA Appear: Clear (01/22/23 18:50:00) UA Spec Grav: 1.015 (01/22/23 18:50:00) UA Glucose: Negative. (01/22/23 18:50:00) UA Bili: Negative. (01/22/23 18:50:00) UA Ketones: Negative. (01/22/23 18:50:00) UA Blood: Negative. (01/22/23 18:50:00) UA pH: 6.0 (01/22/23 18:50:00) UA Protein: Negative.1 (01/22/23 18:50:00) UA Urobilinogen: 0.2 (01/22/23 18:50:00) UA Nitrite: Negative. (01/22/23 18:50:00) UA Leuk Est: Negative. (01/22/23 18:50:00) ABO/Rh Interp: A POS (02/06/23 09:35:00) Antibody Screen Gel: Negative ABSC (02/06/23 09:35:00) Blood Type, External: A positive (02/06/23 09:36:00) Rubella, External: Immune (02/06/23 09:36:00) Rubella Date Performed: 07/19/22 (02/06/23 09:36:00) HIV Antibodies, External: Negative (02/06/23 09:36:00) Group B Strep, External: Positive (02/06/23 09:36:00) Group B Strep Date Performed: 07/15/22 (02/06/23 09:36:00) Hepatitis B, External: Negative (02/06/23 09:36:00) Hepatitis B Date Performed: 07/19/22 (02/06/23 09:36:00) RPR, External: Nonreactive (02/06/23 09:36:00) RPR Date Performed: 11/22/22 (02/06/23 09:36:00) Medication List Active Medications Ordered carboprost: 250 mcg, 1 mL, Intramuscular, Once, PRN: Other (see order comments). citric acid-sodium citrate: 30 mL, Oral, AsDirected, PRN: Gastric Upset. clindamycin: 900 mg, 50 mL, 100 mL/hr, IV Piggyback, PREOP pharm. Lactated Ringers Infusion: 500 mL, IV Bolus, AsDirected, PRN: Other (see order comments). Lactated Ringers Infusion 1,000 mL: 125 mL/hr, Intravenous. lidocaine: 20 mg, 2 mL, Perineum, AsDirected, PRN: to perineal sutures. methylergonovine: 0.2 mg, 1 mL, Intramuscular, Once, PRN: Other (see order comments). miSOPROStol: 1,000 mcg, 5 tab(s), Rectal, Once, PRN: Other (see order comments). ondansetron: 4 mg, 2 mL, IV Push, q4h, PRN: Nausea. oxytocin: 20 unit(s), 2 mL, Intramuscular, Once, PRN: Other (see order comments). oxytocin 20 unit(s) + LR Premix Diluent 1,000 mL: 999 mL/hr, Intravenous. terbutaline: 0.25 mg, 0.25 mL, Subcutaneous, AsDirected, PRN: Other (see order comments). tranexamic acid: 1 gram(s), 100 mL, 300 mL/hr, IV Piggyback, AsDirected, PRN: Other (see order comments). Documented albuterol: 1 puff(s), Inhalation, q4h, PRN: as needed for wheezing, 18 gram(s), 0 Refill(s). cholecalciferol: 125 mcg, 1 cap(s), Oral, qWeek, 0 Refill(s). ferrous sulfate: 325 mg, 1 tab(s), Oral, BIDM, Take with food., 60 tab(s), 3 Refill(s). multivitamin, : Oral, qDay, 0 Refill(s). Medications Inactivated in the Last 72 Hours acetaminophen: Miscellaneous, Once. BUPivacaine: Miscellaneous, Once. BUPivacaine liposome: Miscellaneous, Once. clindamycin: 900 mg, 6 mL, IV Piggyback, PREOP pharm. dexAMETHasone: Miscellaneous, Once. ePHEDrine: Miscellaneous, Once. morphine: Miscellaneous, Once. Sodium Chloride 0.9% intravenous solution: Miscellaneous, Once. A: 1. 27 y/o female at 39.2wks GA 2. Previous section x 1 P: 1. Admit to L&D 2. Continuous external monitoring 3. IV placement 4. For repeat . Pt was considering tubal ligation but declined. 5. Anesthesia consult . Digitally Signed by BRANDO REGALADO DO on 02/06/2023 12:50 PM [facility]09-14-2023 Telephone encounter Note* Telephone Encounter - Gabby Martinez - 01/30/2023 3:06 PM EDT Name of caller: Selene Contact phone number: [phone] Relationship to Patient: patient Provider: not established Practice: [facility] Womens Chief Complaint/Reason for Call: Selene is interested in transferring to [facility] location from Dr. Regalado in [place]. She is 38w OB. Due date is 02/11/23 and expresses concern about heart rate dropping from 160 to 40 last week. She is currently scheduled for with her current provided. Per Nilsa, caller informed that records would need to be reviewed and appt approved prior to scheduling. Records in route. Please contact caller to follow up. Best time of day caller can be reached: any Patient advised that office/PCP has 24-48 business hours to return their call: No [id number] Note* Valentina Hannon RN - 01/30/2023 2:13 AM EDT DC instructions reviewed with pt at this time denies any questions. Written instructions given and pt left unit ambulatory by herself [id number] Nurse Note* Valentina Hannon RN - 01/30/2023 2:13 AM EDT DC instructions reviewed with pt at this time denies any questions. Written instructions given and pt left unit ambulatory by herself documented in this [facility]09-14-2023 Hospital Discharge instructions* Discharge Instructions* Milvia Jauregui DO - 01/30/2023 2:05 AM EDT Follow up appointment with your doctor/hot oiler - Keep next scheduled appointment Activity - Normal Activity Call your doctor/hot oiler if you have: - leaking fluid - vaginal bleeding - regular contractions: More than 6 contractions in one hour - decreased movement - worsening abdominal (belly) pain - headache, blurry vision, increased swelling, upper abdominal pain If you are going home with contractions that are uncomfortable/painful- we recommend these coping strategies: rhythmic breathing, hydrotherapy, imagery or visualization, gentle massage, walking and changing your position. Treatment Verification: Selene Larkin was assessed on Labor and Delivery for a relatedvisit on 01/30/23 . Milvia Jauregui DO [facility] documented in this [facility]09-14-2023 History of Present illness Narrative* Britta Mauirce RN - 01/30/2023 1:39 AM EDT Patient declining any intervention at this time. aware. * Milvia Jauregui DO - 01/30/2023 1:09 AM EDT Department of Obstetrics and Gynecology Labor and Delivery Triage Note CHIEF COMPLAINT: CTX HISTORY OF PRESENT ILLNESS: The patient is a 27 y.o. 38w2d. OB History 3 Para 1 Term 1 AB Living 1 SAB IAB Ectopic Multiple Live Births 1 Patient presents with a chief complaint as above. Patient states that she drank something called [employer]'s brew earlier this evening and shortly after she noticed increasing contractions and diarrhea. She presents today with complaints of abdominal pain and CTX. She denies any DFM/VB/LOF. She has a history of PCD in her G1 for arrest of descent, with a successful in her G2. She has a history of asthma, denies hospitalizations or intubations. Estimated Due Date: Estimated Date of Delivery: 02/11/23 PAST MEDICAL HISTORY: Past Medical History: Diagnosis Date Anemia Asthma Hypoglycemia Interstitial cystitis PAST SURGICAL HISTORY: Past Surgical History: Procedure Laterality Date SECTION (HISTORICAL) CHOLECYSTECTOMY N/A DILATION AND CURETTAGE OF UTERUS 05/29/2021 LAPAROSCOPY DIAGNOSTIC / BIOPSY / ASPIRATION / LYSIS SOCIAL HISTORY: reports that she has never smoked. She has never used smokeless tobacco. She reports that she does not drink alcohol and does not use drugs. MEDICATIONS: Prior to Admission medications Medication Sig Start Date End Date Taking? Authorizing Provider calcitriol (Rocaltrol) 0.25 MCG capsule Take 0.25 mcg by mouth daily. Historical Provider, ferrous sulfate 325 (65 Fe) MG tablet Take 325 mg by mouth in the morning and 325 mg in the evening. Historical Provider, L-Methylfolate 15 MG tablet Take 15 mg by mouth 1 (one) time each day. Pt unsure of dosage Historical Provider, metroNIDAZOLE (Flagyl) 375 MG capsule Take 375 mg by mouth 2 times daily. Historical Provider, 27-1 MG tablet Take 1 tablet by mouth daily. Historical Provider, CARE: Complicated by: Hx CD, Asthma REVIEW OF SYSTEMS: Pertinent items are noted in HPI. APPEARANCE: Pain: No PHYSICAL EXAM: Vital Signs: VS wnl-reviewed/Respirations normal effort There were no vitals filed for this visit. Abdomen: soft, NT, ND, no rebound/guarding, no incisional tenderness with deep palpation of U/S probe Uterus: gravid/non-tender LE Edema: trace Speculum Exam: defer heart rate: Category I Cervix: 50/-3 Contraction frequency: regular, every 4 minutes Membranes: Intact RESULTS: TRIAGE COURSE: VTX on BSUS, pain with contractions, but no incisional pain with U/S probe pressure.SVE 50/-3. FHT Cat I, CTX q 4 min. Will give tylenol and Lidocaine and monitor. Milvia Jauregui DO 01/30/2023 1:12 AM Reassessed patient at this time, patient declined intervention,declines tylenol, lidocaine patch, declines simethicone. FHT Cat I, patient feels comfortable and is requesting discharge at this time. Return precautions given. Patient states she has an OB appointment in the morning. Milvia Jauregui DO 01/30/2023 2:04 AM IMPRESSION: False Labor Pain assessment and plan: None DISCUSSED WITH C PROVIDER: Dr. Gonzalez DISPOSITION: Discharge to Home Associated attestation - Abiola Gonzalez DO - 01/30/2023 9:45 AM EDT Hospital Care (Independent): I independently saw and evaluated the patient. I agree with the findings and plan of care as documented in the resident's note. documented in this [facility]09-07-2023 Hospital Discharge instructions Patient Education 01/22/2023 22:00:39 [place] L&D Outpatient Instructions (AORN) [facility] HOME-GOING INSTRUCTIONS _X_ You are to follow up with your physician in ___ days/weeks. ACTIVITY ___ Bedrest _x__Activity as tolerated ___ No work/school for ___ days. ___Other PRESCRIPTION GIVEN ___Yes NAUSEA/VOMITING ___ Take small, frequent amounts of clear liquids. Avoid fruit juices and milk. ___ Increase fluid intake to a minimum of 8 ounces of fluid every hour while awake. ___ Soft diet. Rice, crackers, bananas, Jell-O, cooked carrots, applesauce. ___ Wirt diet. Avoid caffeine, chocolate, alcohol, spiced/greasy foods. URINARY TRACT INFECTION _x__ Drink 8-12 glasses of water every day. _x__ Urinate frequently; do not limit fluids to reduce frequency of urination. ___ Call your physician if burning and frequency with urination returns after taking all your medication. ___ Call your physician if you have a temperature of 100.4 degrees Fahrenheit or higher. ___ Wipe from front to back. SIGNS OF PRE-ECLAMPSIA ___ Severe heartburn. ___ Persistent headache not relieved by Tylenol. ___ Increased in swelling of face, hands and feet. ___ Blurred vision, double vision, or spots in the eyes. ___ Persistent vomiting. ___ *Convulsions or seizures. LABOR ___ Restrict activity. ___ Drink 8-12 glasses of water every day. ___ Urinate frequently ___ Pelvic rest. No sexual intercourse/ Call your physician if you experience: _x__ Increase in vaginal discharge, leaking fluid, or vaginal bleeding. _x__ More than 4, 5, or 6 contractions in one hour. _x__ Burning and frequency with urination. DECREASED MOVEMENT ___ Lie down on your left side, drink some fluids and relax. Count the movements. You need tohave 10 movements in 2 hours. ___ If you do not feel the 10 movements, call your physician. OTHER _x__ After an exam you may experience some spotting or discharge. As long as it is not bright red and heavy like a period or continues to leak as if your water broke, it is to be expected. ___ LABOR Call your physician if you experience: _x__ Painful uterine contractions every ___ minutes for ___ hours. _x__A gush or continuous trickle of watery discharge. COME TO THE HOSPITAL AND CALL PHYSICIAN IF: _x__ Your abdomen feels continually firm. _x__ *Bleeding is bright red and enough to saturate a pad in one hour or less. *Call 911 or go to the nearest Emergency Room for assistance. Form 325174 D: 04/2601/22/2023 21:56:21 7- Labor (03/30) (CUSTOM) Labor labor is defined as having uterine contractions that cause the cervix to open (dilate), shorten and thin (effacement) before completing 37 weeks of . MANAGEMENT OF LABOR, IN & OUT OF THE HOSPITAL There are a lot of things to manage in labor. These things include both medical measures and personal care measures for you and/or your baby. Most labor will be handled in the hospital. Things that may be helpful in labor include: Hydration (oral or IV). Take in eight, 8 ounce glasses of water per day. Bed rest (home or hospital). Lying on your left side may help. Avoid intercourse and orgasms. Medication (antibiotics) to help prevent infection. This is more likely if your membranes have ruptured or if the contractions are caused by infection. Take medications as directed by your healthcareprovider. Evaluation of your baby. These tests or procedures may be ordered and will be explained by your healthcare provider. They will help your healthcare provider know how the baby is doing: Biophysical profile. Non-stress or stress tests. Amniocentesis to evaluate the baby for lung maturity. Amniotic fluid volume index (MEMO). An ultrasound. Medications (steroids) to help your baby's lungs mature more quickly may be given to you. Tocolytic medications (medications that help stop uterine contractions) may help prolong the . Your healthcare provider may give other advice on preparation for . TREATMENT The best treatment is prevention, being aware of risk factors and early detection. Make sure to askyour healthcare provider to discuss with you the signs and symptoms of labor, especially ifyou had labor with a previous . HOME CARE INSTRUCTIONS Eat a balanced and nourished diet. Take your vitamin supplements and any medications as directed by your healthcare provider. Drink 6 to 8 glasses of liquids a day. Get plenty of rest and sleep. Do not have sexual relations if you have labor or are at high risk of having labor. Follow your healthcare provider's recommendation regarding activities, medications, or tests, and procedures. Avoid stress. Do not smoke. SEEK IMMEDIATE MEDICAL CARE IF: You are having contractions. You have abdominal pain. You have vaginal bleeding. You have painful urination. You have abnormal discharge or bleeding from the vagina. You have a fever (temperature). Document Released: 05/05/2006 Document Re-Released: 07/30/2010 [facility] Patient Information 2010 [employer]. Follow Up Care 01/22/2023 18:34:15 With:JOLIE CONTEH LEAF CONDITIONER-CNM Address: [address], [address] Brando Regalado, [place] [address]- [phone] When:01/23/2023 [facility] 08-24-2023 Hospital Discharge instructions Patient Education 01/08/2023 22:43:19 7 - Labor and Delivery Outpatient Instructions (CUSTOM) [facility] HOME-GOING INSTRUCTIONS _X_ You are to follow up with your physician in ___ days/weeks. ACTIVITY ___ Bedrest __x_Activity as tolerated ___ No work/school for ___ days. ___Other PRESCRIPTION GIVEN ___Yes NAUSEA/VOMITING ___ Take small, frequent amounts of clear liquids. Avoid fruit juices and milk. ___ Increase fluid intake to a minimum of 8 ounces of fluid every hour while awake. ___ Soft diet. Rice, crackers, bananas, Jell-O, cooked carrots, applesauce. ___ Wirt diet. Avoid caffeine, chocolate, alcohol, spiced/greasy foods. URINARY TRACT INFECTION ___ Drink 8-12 glasses of water every day. ___ Urinate frequently; do not limit fluids to reduce frequency of urination. ___ Call your physician if burning and frequency with urination returns after taking all your medication. ___ Call your physician if you have a temperature of 100.4 degrees Fahrenheit or higher. ___ Wipe from front to back. SIGNS OF PRE-ECLAMPSIA ___ Severe heartburn. ___ Persistent headache not relieved by Tylenol. ___ Increased in swelling of face, hands and feet. ___ Blurred vision, double vision, or spots in the eyes. ___ Persistent vomiting. ___ *Convulsions or seizures. LABOR ___ Restrict activity. ___ Drink 8-12 glasses of water every day. ___ Urinate frequently ___ Pelvic rest. No sexual intercourse/ Call your physician if you experience: ___ Increase in vaginal discharge, leaking fluid, or vaginal bleeding. ___ More than 4, 5, or 6 contractions in one hour. ___ Burning and frequency with urination. DECREASED MOVEMENT ___ Lie down on your left side, drink some fluids and relax. Count the movements. You need tohave 10 movements in 2 hours. ___ If you do not feel the 10 movements, call your physician. OTHER ___ After an exam you may experience some spotting or discharge. As long as it is not bright red and heavy like a period or continues to leak as if your water broke, it is to be expected. ___ LABOR Call your physician if you experience: _x__ Painful uterine contractions every __3-5_ minutes for _1__ hours. ___A gush or continuous trickle of watery discharge. COME TO THE HOSPITAL AND CALL PHYSICIAN IF: _x__ Your abdomen feels continually firm. _x__ *Bleeding is bright red and enough to saturate a pad in one hour or less. *Call 911 or go to the nearest Emergency Room for assistance. Form 223774 D: 04/26 Document Released: 05/05/2006 Document Revised: 04/23/2012 Document Reviewed: 05/05/2006 [employer] Patient Information 2012 [employer]. Follow Up Care 01/08/2023 18:15:43 With:JOLIE CONTEH APRN-CNM Address: [address], [address] Brando Regalado, [place] [address]- [phone] When: Unknown Comments:keep next pn visit 01/13/23 as scheduled [facility] 08-01-2023 Hospital Discharge instructions* Discharge Instructions* Gina Sun MD - 12/17/2022 11:39 AM EDT Follow up appointment with your doctor/hot oiler - Keep next scheduled appointment Activity - Normal Activity Call your doctor/hot oiler if you have: - leaking fluid - vaginal bleeding - regular contractions: Every 5 minutes or closer for one hour - decreased movement - worsening abdominal (belly) pain - headache, blurry vision, increased swelling, upper abdominal pain If you are going home with contractions that are uncomfortable/painful- we recommend these coping strategies: rhythmic breathing, hydrotherapy, imagery or visualization, gentle massage, walking and changing your position. Treatment Verification: Selene Larkin was assessed on Labor and Delivery for a relatedvisit on @[email or web address]@. Gina Sun MD [facility] documented in this [facility]08-01-2023 History of Present illness Narrative* Gina Snu MD - 12/17/2022 11:08 AM EDT Images from the original note were not included. Department of Obstetrics and Gynecology Labor and Delivery Triage Note CHIEF COMPLAINT: Pelvic pressure; irritation HISTORY OF PRESENT ILLNESS: The patient is a 27 y.o. 32w0d. OB History 3 Para 1 Term 1 AB Living 1 SAB IAB Ectopic Multiple Live Births 1 Patient presents with a chief complaint as above. Patient with external irritation and currently being treated for bacterial vaginosis at this time. Described external irritation and pelvic pressure.Stated increased joint pains when put into butterfly positioning. Denies urinary complaints; however increased pelvic pressure. Denies DFM/VB/LOF/CTX Estimated Due Date: Estimated Date of Delivery: 02/11/23 PAST MEDICAL HISTORY: Past Medical History: Diagnosis Date Anemia Asthma Hypoglycemia Interstitial cystitis PAST SURGICAL HISTORY: Past Surgical History: Procedure Laterality Date SECTION (HISTORICAL) CHOLECYSTECTOMY N/A DILATION AND CURETTAGE OF UTERUS 05/29/2021 LAPAROSCOPY DIAGNOSTIC / BIOPSY / ASPIRATION / LYSIS SOCIAL HISTORY: Social History Socioeconomic History Marital status: Tobacco Use Smoking status: Never Smokeless tobacco: Never Vaping Use Vaping Use: Never used Substance and Sexual Activity Alcohol use: No Drug use: No Sexual activity: Not Currently Partners: Male MEDICATIONS: No current facility-administered medications for this encounter. CARE: Complicated by: None REVIEW OF SYSTEMS: Pertinent items are noted in HPI. APPEARANCE: Pain: No PHYSICAL EXAM: Vital Signs: VS wnl-reviewed/Respirations normal effort Vitals: 12/17/22 0934 12/17/22 1000 12/17/22 1100 BP: 104/58 Pulse: 82 81 86 Resp: 18 Temp: 36.7 C (98 F) TempSrc: Oral Weight: 181 lb (82.1 kg) Height: 5' 3 (1.6 m) Abdomen: soft, gravid, nontender, nondistended, no abnormal masses, no epigastric pain Uterus: gravid/non-tender LE Edema: trace Speculum Exam: no pooling of fluid seen, vaginal discharge physiologic in nature; presence of vaginal yeast externally with external vaginal irritation present heart rate: Category I Cervix: Closed Contraction frequency: none Membranes: Intact TRIAGE COURSE: Patient with external discomfort on exam. No contractions noted on toco, patient overall comfortable appearing with closed cervix. Will send vaginal pathogens probe and UA. Will treat external vaginal yeast infection. Vaginal pathogens pending. Low concern for UTI on UA. Will treat vaginal yeast infection and call if culture becomes positive. Patient follows with provider in [place]. ESSION: Pelvic Pressure Pain assessment and plan: None DISCUSSED WITH [facility] PROVIDER: Dr. Vivar; Dr. Lazo DISPOSITION: Discharge to Home Associated attestation - Supriya Vivar MD - 12/17/2022 11:47 AM EDT Hospital Care (Independent): I independently saw and evaluated the patient. I agree with the findings and plan of care as documented in the resident's note. documented in this [facility]07-30-2023 Note. MICRO - Microbiology PROCEDURE: Blood Culture (bacterial) [*1] SOURCE: Blood BODY SITE: Anticubital, Left COLLECTED DATE/TIME: 12/10/2022 09:25 EDT RECEIVED DATE/TIME: 12/10/2022 11:39 EDT START DATE/TIME: 12/10/2022 11:39 EDT FREE TEXT SOURCE: FINAL REPORTS Final Report [] Verified Date/Time/Personnel: 12/15/2022 11:59 EDT Blood Culture: No Growth at 5 days. PRELIMINARY REPORTS Preliminary Report [] Verified Date/Time/Personnel: 12/10/2022 12:59 EDT Culture has been received in lab and is no growth to date. Routine cultures are held for 5 days. Performing Locations *1: This test was performed at: [address], [address] , [facility] ([place])11-19-2022 Hospital Discharge instructions Patient Education 11/19/2022 20:37:11 Form - Movement Counts Movement Counts Patient Name: Patient Due Date: What is a movement count? A movement count is the number of times that you feel your baby move during a certain amount of time. This may also be called a kick count. A movement count is recommended for every woman. You may be asked to start counting movements as early as week 28 of your . Pay attention to when your baby is most active. You may notice your baby's sleep and wake cycles. You may also notice things that make your baby move more. You should do a movement count: When your baby is normally most active. At the same time each day. A good time to count movements is while you are resting, after having something to eat and drink. How do I count movements? 1.Find a quiet, comfortable area. Sit, or lie down on your side. 2.Write down the date, the start time and stop time, and the number of movements that you felt between those two times. Take this information with you to your health care visits. 3.For 2 hours, count kicks, flutters, swishes, rolls, and jabs. You should feel at least 10 movements during 2 hours. 4.You may stop counting after you have felt 10 movements. 5.If you do not feel 10 movements in 2 hours, have something to eat and drink. Then, keep resting and counting for 1 hour. If you feel at least 4 movements during that hour, you may stop counting. Contact a health care provider if: You feel fewer than 4 movements in 2 hours. Your baby is not moving like he or she usually does. Date: Start time: Stop time: Movements: Date: Start time: Stop time: Movements: Date: Start time: Stop time: Movements: Date: Start time: Stop time: Movements: Date: Start time: Stop time: Movements: Date: Start time: Stop time: Movements: Date: Start time: Stop time: Movements: Date: Start time: Stop time: Movements: Date: Start time: Stop time: Movements: This information is not intended to replace advice given to you by your health care provider. Make sure you discuss any questions you have with your health care provider. Document Released: 06/04/2007 Document Revised: 05/25/2019 Document Reviewed: 06/13/2016 Elsevier Patient Education 2020 [employer] [facility] 06-12-2023 Emergency department Note* Diandra Allison RN - 10/28/2022 1:40 PM EDT Resident at bedside doing US. Diandra Allison RN 10/28/22 1428 [id number] Emergency department Note* Diandra Allison RN - 10/28/2022 1:40 PM EDT Resident at bedside doing US. Diandra Allison RN 10/28/22 1428 * Moses Holden MD - 10/28/2022 12:52 PM EDT Emergency Department Encounter [facility] ED Patient: Selene Larkin : 1995 Date of Evaluation: 10/28/2022 ED Supervising Physician: Moses Holden MD I independently examined and evaluated Selene Larkin. This will serve as my Supervisory note and shared attestation. I did perform a substantive portion of the visit including all aspects of the Medical Decision Making. I wore appropriate PPE for the entirety of this encounter. In brief, Selene Larkin is a 27 y.o. female that presents to the emergency department for evaluation of a fall. Patient is approximate 25 weeks . She did hit her head but no loss of consciousness. Complains of lower abdominal pressure, concerned that the baby is not moving as much. Focused exam: Awake and alert. Afebrile. Nontoxic. Small abrasion to the right upper forehead area.No palpable step-off. The rest of the head is atraumatic. Cervical spine nontender. Lungs clear to auscultation. Heart regular rate and rhythm. Abdomen soft and gravid, no focal tenderness. Equal distal pulses. Brief ED course/MDM: I supervised resident physician for [id number] ultrasound that shows good movement. Recommend monitoring in labor and delivery. We will discharge patient from here to [facility] labor and delivery at [facility] as there is no labor and delivery available at this hospital atthis time. MDM elements: The patient presented with chief complaint of trauma evaluation. The differential diagnosis associated with this patient's presentation includes head injury, spine injury, intra-abdominal injury. Our workup consisted of ordering/reviewing: [id number] ultrasound. The patient will be Discharged. Patient is in agreement with this plan. All diagnostic, treatment, and disposition decisions were made by myself in conjunction with the Resident. I also supervised rashid portions of any procedures performed by the Resident. For all further details of the patient's emergency department visit, please see their documentation. (Comment: Please note this report has been produced using speech recognition software and may contain errors related to that system including errors in grammar, punctuation, and spelling, as well as words and phrases that may be inappropriate. If there are any questions or concerns please feel freeto contact the dictating provider for clarification.) Moses Holden MD [facility] Moses Holden MD 10/28/222058 documented in this [facility]06-12-2023 Physician Emergency department Note* Moses Holden MD - 10/28/2022 12:52 PM EDT Emergency Department Encounter [facility] ED Patient: Selene Larkin : 1995 Date of Evaluation: 10/28/2022 ED Supervising Physician: Moses Holden MD I independently examined and evaluated Selene Larkin. This will serve as my Supervisory note and shared attestation. I did perform a substantive portion of the visit including all aspects of the Medical Decision Making. I wore appropriate PPE for the entirety of this encounter. In brief, Selene Larkin is a 27 y.o. female that presents to the emergency department for evaluation of a fall. Patient is approximate 25 weeks . She did hit her head but no loss of consciousness. Complains of lower abdominal pressure, concerned that the baby is not moving as much. Focused exam: Awake and alert. Afebrile. Nontoxic. Small abrasion to the right upper forehead area.No palpable step-off. The rest of the head is atraumatic. Cervical spine nontender. Lungs clear to auscultation. Heart regular rate and rhythm. Abdomen soft and gravid, no focal tenderness. Equal distal pulses. Brief ED course/MDM: I supervised resident physician for sdenk-vx-drkh ultrasound that shows good movement. Recommend monitoring in labor and delivery. We will discharge patient from here to [facility] labor and delivery at [facility] as there is no labor and delivery available at this hospital atthis time. MDM elements: The patient presented with chief complaint of trauma evaluation. The differential diagnosis associated with this patient's presentation includes head injury, spine injury, intra-abdominal injury. Our workup consisted of ordering/reviewing: Wgktc-da-tpxa ultrasound. The patient will be Discharged. Patient is in agreement with this plan. All diagnostic, treatment, and disposition decisions were made by myself in conjunction with the Resident. I also supervised rashid portions of any procedures performed by the Resident. For all further details of the patient's emergency department visit, please see their documentation. (Comment: Please note this report has been produced using speech recognition software and may contain errors related to that system including errors in grammar, punctuation, and spelling, as well as words and phrases that may be inappropriate. If there are any questions or concerns please feel freeto contact the dictating provider for clarification.) Moses Holden MD [employer] Moses Holden MD 10/28/222058 [employer] Phone: [phone]) 709-315606-06-2023 Note. MICRO - Microbiology PROCEDURE: Urine Culture [*1] SOURCE: Urine, Clean Catch BODY SITE: COLLECTED DATE/TIME: 10/19/2022 18:24 EDT RECEIVED DATE/TIME: 10/20/2022 20:02 EDT START DATE/TIME: 10/20/2022 20:02 EDT FREE TEXT SOURCE: FINAL REPORTS Final Report [] Verified Date/Time/Personnel: 10/22/2022 09:33 EDT 10,000 - 50,000 cfu/ml Mixed growth consistent with normal urogenital derrick. Also includes 5,000 cfu/ml Group B Beta Hemolytic Strep (Strep agalactiae) Sensitivity testing is not recommended for one of the following reasons: 1. Established susceptibility patterns are available or 2. Interpretative criteria are not available. PRELIMINARY REPORTS Preliminary Report [] Verified Date/Time/Personnel: 10/21/2022 08:52 EDT Culture results pending. Performing Locations *1: This test was performed at: [facility], [address] [place] [address], [phone] , [facility] ([place])10-19-2022 Hospital Discharge instructions Patient Education 10/19/2022 19:20:57 [place] [facility] Outpatient Instructions ([facility]) [facility] HOME-GOING INSTRUCTIONS _X_ You are to follow up with your physician in ___ days/weeks. ACTIVITY ___ Bedrest ___Activity as tolerated ___ No work/school for ___ days. ___Other PRESCRIPTION GIVEN ___Yes NAUSEA/VOMITING ___ Take small, frequent amounts of clear liquids. Avoid fruit juices and milk. ___ Increase fluid intake to a minimum of 8 ounces of fluid every hour while awake. ___ Soft diet. Rice, crackers, bananas, Jell-O, cooked carrots, applesauce. ___ Wirt diet. Avoid caffeine, chocolate, alcohol, spiced/greasy foods. URINARY TRACT INFECTION _X__ Drink 8-12 glasses of water every day. _X__ Urinate frequently; do not limit fluids to reduce frequency of urination. _X_ Call your physician if burning and frequency with urination returns after taking all your medication. _X__ Call your physician if you have a temperature of 100.4 degrees Fahrenheit or higher. __X_ Wipe from front to back. SIGNS OF PRE-ECLAMPSIA ___ Severe heartburn. ___ Persistent headache not relieved by Tylenol. ___ Increased in swelling of face, hands and feet. ___ Blurred vision, double vision, or spots in the eyes. ___ Persistent vomiting. ___ *Convulsions or seizures. LABOR __X_ Restrict activity. __X_ Drink 8-12 glasses of water every day. ___X Urinate frequently __X_ Pelvic rest. No sexual intercourse/ Call your physician if you experience: _X__ Increase in vaginal discharge, leaking fluid, or vaginal bleeding. _X__ More than 4, 5, or 6 contractions in one hour. __X_ Burning and frequency with urination. DECREASED MOVEMENT ___ Lie down on your left side, drink some fluids and relax. Count the movements. You need tohave 10 movements in 2 hours. ___ If you do not feel the 10 movements, call your physician. OTHER _X__ After an exam you may experience some spotting or discharge. As long as it is not bright red and heavy like a period or continues to leak as if your water broke, it is to be expected. ___ LABOR Call your physician if you experience: ___ Painful uterine contractions every ___ minutes for ___ hours. ___A gush or continuous trickle of watery discharge. COME TO THE HOSPITAL AND CALL PHYSICIAN IF: __X_ Your abdomen feels continually firm. __X_ *Bleeding is bright red and enough to saturate a pad in one hour or less. *Call 911 or go to the nearest Emergency Room for assistance. Form D: 04/26 Follow Up Care 10/19/2022 18:15:12 With:BRANDO REGALADO DO Address: [address] [place] [address] [address] [place] [address]- [phone] When: Unknown Comments:Follow-up as scheduled [facility] 05-15-2023 Hospital Discharge instructions Patient Education 09/30/2022 12:59:02 [place] [facility] Outpatient Instructions ([facility]) [facility] HOME-GOING INSTRUCTIONS _X_ You are to follow up with your physician in ___ days/weeks. ACTIVITY ___ Bedrest _X__Activity as tolerated ___ No work/school for ___ days. ___Other PRESCRIPTION GIVEN ___Yes NAUSEA/VOMITING ___ Take small, frequent amounts of clear liquids. Avoid fruit juices and milk. ___ Increase fluid intake to a minimum of 8 ounces of fluid every hour while awake. ___ Soft diet. Rice, crackers, bananas, Jell-O, cooked carrots, applesauce. ___ Wirt diet. Avoid caffeine, chocolate, alcohol, spiced/greasy foods. URINARY TRACT INFECTION ___ Drink 8-12 glasses of water every day. ___ Urinate frequently; do not limit fluids to reduce frequency of urination. ___ Call your physician if burning and frequency with urination returns after taking all your medication. ___ Call your physician if you have a temperature of 100.4 degrees Fahrenheit or higher. ___ Wipe from front to back. SIGNS OF PRE-ECLAMPSIA ___ Severe heartburn. ___ Persistent headache not relieved by Tylenol. ___ Increased in swelling of face, hands and feet. ___ Blurred vision, double vision, or spots in the eyes. ___ Persistent vomiting. ___ *Convulsions or seizures. LABOR ___ Restrict activity. ___ Drink 8-12 glasses of water every day. ___ Urinate frequently ___ Pelvic rest. No sexual intercourse/ Call your physician if you experience: ___ Increase in vaginal discharge, leaking fluid, or vaginal bleeding. ___ More than 4, 5, or 6 contractions in one hour. ___ Burning and frequency with urination. DECREASED MOVEMENT _X__ Lie down on your left side, drink some fluids and relax. Count the movements. You need to have 10 movements in 2 hours. _X__ If you do not feel the 10 movements, call your physician. OTHER _X__ After an exam you may experience some spotting or discharge. As long as it is not bright red and heavy like a period or continues to leak as if your water broke, it is to be expected. ___ LABOR Call your physician if you experience: ___ Painful uterine contractions every ___ minutes for ___ hours. ___A gush or continuous trickle of watery discharge. COME TO THE HOSPITAL AND CALL PHYSICIAN IF: ___ Your abdomen feels continually firm. ___ *Bleeding is bright red and enough to saturate a pad in one hour or less. *Call 911 or go to the nearest Emergency Room for assistance. Form [id number] D: 04/26 Follow Up Care 09/30/2022 09:57:51 With:FEDERICO CLAIRE Address: [address] [place] [address]- [phone] Business (1) When:Within 1 Day(s) [facility] 05-15-2023 Evaluation + Plan noteExtracted from: Title:Clinical Document Author:EDDIE NICOLE MD Date:09/30/22 [facility] ADMISSION HISTORY AN D PHYSICIAL CHIEF COMPLAINT: Abdominal pain HISTORY OF PRESENT ILLNESS: -0-3-2 estimated gestational age 21 weeks who has recently transferred to our practice has a history of 1 previous section and states she was told she has a bilobed placenta. Since intercourse 3 days ago she has noted lower abdominal discomfort and cramping which persists and has gotten a little worse. She is rating it a 6 out of 10. VÍCTOR 02/08/23 (Authoritative) EGA 21 Weeks, 2 Days /Parity G4,P2(2,0,2,2) Multiple Fetuses No, Denis Current Weight 75.7kg Pre-Preg Weight 74kg Height 160cm BMI 29.6kg/m2 Blood Type A POS RPR, External Nonreactive Rubella, External Immune Hepatitis B, External Negative HIV Antibodies, External Negative REVIEW OF SYSTEMS: Denies fever, headache, nausea or vomiting Appetite has been good and bowel movements are regular No actual dysuria but some pelvic pressure and suprapubic discomfort A lot of pain in her sacrum similar to what she has had in the past with labor No vaginal discharge bleeding or leakage of fluid ACTIVE PROBLEMS: (10) Anemia, iron deficiency (815874046) Asthma (897953434) Autism (0281261298) BMI 25.0-25.9,adult (0462402603) Cystitis, interstitial (232911187) GBS bacteriuria (748133922) Hypoglycemia (538831397) Polyuria (10212777) (523131623) Stress incontinence (503345776) MEDICATIONS: Active Inpt Meds: None Active PRN Meds: None One Time Meds: (Ordered) Lactated Ringers Infusion (Lactated Ringers Bolus) Start: 09/30/22 10:45:00 EDT, Dose = 500 mL, Soln, IV Bolus, Once, Stop: 09/30/22 10:45:00 EDT, Rate: 1,000 mL/hr, hour(s), 09/30/22 10:39:00 EDT (Completed) acetaminophen (Tylenol) Start: 09/30/22 10:45:00 EDT, Dose = 1,000 mg, = 2 tab(s), Oral, Once, Stop: 09/30/22 10:45:00 EDT, 09/30/22 10:41:00 EDT (Ordered) nalbuphine (Nubain) Start: 09/30/22 10:45:00 EDT, Dose = 10 mg, = 1 mL, IV Push, Once, Routine, Stop: 09/30/22 10:45:00 EDT, 09/30/22 10:40:00 EDT (Ordered) ondansetron (Zofran) Start: 09/30/22 10:45:00 EDT, Dose = 4 mg, = 2 mL, IV Push, Once, Stop: 09/30/22 10:45:00 EDT, 09/30/22 10:42:00 EDT Active IV Meds: None ALLERGIES: (1) penicillin FAMILY HISTORY: SOCIAL HISTORY: PHYSICAL EXAM: VITALS: JdekjtRyygMGVxariNKWyZ8JOH4SqmaBd(kg) 09/30 10:1436.9--8020--RA09/30 75.0 24 Hr Tmax: 36.9 at 09/30 10:14 36 Hr Tmax: 36.9 at 09/30 10:14 Vital Signs are the last 5 in the past 48 hours. Weights display the last 5 within 7 days. Initial Wt: 09/30 75.0 kg 165 lb Current Wt: 09/30 75.0 kg 165 lb GENERAL: Young white female in no acute distress was alert and oriented x3 and cooperative. She does make eye contact and is able to express herself well. HEENT: Normal CARDIOVASCULAR: Regular rate and rhythm without murmurs RESPIRATORY: Clear to auscultation bilaterally ABDOMEN: Gravid. Soft. Tender especially suprapubically and extending somewhat towards the right lower quadrant There is no uterine activity. heart tones have been noted in the normal range by Doppler Cervix is closed thick and high EXREMETIES: Nontender without edema NEUROLOGICAL: Grossly normal PSYCHIATRIC: Grossly normal LABS: 36hr Labs 09/30 1045 Creatinine Lvl (s)0.52L Albumin Level2.7L Alk Phos55 Amylase Level34 Bili Total0.2 BUN5L Calcium Lvl8.2L Ycrnoiar493 CO222 Glucose Level98 Lipase Level40 Potassium Level3.5 Sodium Vbrzt651 Total Protein5.6L BUN/Creatinine Ratio10 Globulin2.9 A/G Ratio0.9L AST/SGOT11 ALT/EGGJ62K Electrolyte Dbglyet31.0 GFR Non- Mxxhzcug477 GFR Ibonjrzq628 Hct28.9L Hgb9.7L MCH28.3 MCHC33.7 MCV84.0 MPV6.9L Oefiixnb719 RBC3.44L RDW13.3 WBC9.5 Lymphocyte %15.5 Monocyte %6.5 Neutrophil %76.8 Eosinophil %0.8 Basophil %0.4 Neutrophil, Absolute7.3H Lymphocyte, Absolute1.5 Monocyte, Absolute0.6 Eosinophil, Absolute0.1 Basophil, Absolute0.0 UA AppearSee Flowsheet UA BiliSee Flowsheet UA BloodSee Flowsheet UA ColorSee Flowsheet UA GlucoseSee Flowsheet UA KetonesSee Flowsheet UA Leuk EstSee Flowsheet UA NitriteSee Flowsheet UA ProteinSee Flowsheet UA UrobilinogenSee Flowsheet UA pHSee Flowsheet UA Spec GravSee Flowsheet UA Specimen TypSee Flowsheet DIAGNOSTICS: Obstetric ultrasound shows nothing unusual and the lower uterine segment appears normal. Abdominal ultrasound shows no fluid collection or suspicious kidney or liver findings. Patient was apparently tender all over. IMPRESSION: 1. 21-week intrauterine. 2. Lower abdominal pain of unclear etiology 3. Hypocalcemia 4. Anemia 5. Autism 6. Anxiety 7. History of interstitial cystitis, frequency and stress urinary incontinence PLAN: Labs and ultrasound were obtained as above. An offer of IV hydration was declined by the patient as she does not tolerate IVs well without her to help distract her and keep her from picking at it and disconnecting it. she has stated this is because of her autism. She does say in labor her will be around to support her and this should be fine. Oral Tylenol was given to the patient despite her pronouncement that Tylenol does not work for her. She was okay to accept this. After benign looking results will send patient home on oral pain med of choice to FU in 1 day. medicare coordinator issues. Nutrition consult for low albumin level. CT Fe, Pyridium x 24 hr, Hydration Future Appointments Appointment Date:10/04/2022 02:00:00 PM Scheduled Provider: Location:XRAY Appointment Type:US OB > 14 wks Appointment Date:10/10/2022 10:00:00 AM Scheduled Provider:LORRAINE MO Location: [facility] Appointment Type: OV OB Routine Follow Up Appointment Date:04/07/2023 03:40:00 PM Scheduled Provider:LUIS REESE Location:UROLOGY Appointment Type:URO OV 20 min Future Scheduled Tests Radiology* US OB Limited/Transvaginal 09/12/22 * US OB > 14 weeks 10/04/22 * US Obstetrical 07/20/22 * US Transvaginal OB 07/25/22 [facility] 05-15-2023 Note [facility] ADMISSION HISTORY AND PHYSICIAL CHIEF COMPLAINT: Abdominal pain HISTORY OF PRESENT ILLNESS: -0-3-2 estimated gestational age 21 weeks who has recently transferred to our practice has a history of 1 previous section and states she was told she has a bilobed placenta. Since intercourse 3 days ago she has noted lower abdominal discomfort and cramping which persists and has gotten a little worse. She is rating it a 6 out of 10. VÍCTOR 02/08/23 (Authoritative) EGA 21 Weeks, 2 Days /Parity G4,P2(2,0,2,2) Multiple Fetuses No, Denis Current Weight 75.7kg Pre-Preg Weight 74kg Height 160cm BMI 29.6kg/m2 Blood Type A POS RPR, External Nonreactive Rubella, External Immune Hepatitis B, External Negative HIV Antibodies, External Negative REVIEW OF SYSTEMS: Denies fever, headache, nausea or vomiting Appetite has been good and bowel movements are regular No actual dysuria but some pelvic pressure and suprapubic discomfort A lot of pain in her sacrum similar to what she has had in the past with labor No vaginal discharge bleeding or leakage of fluid ACTIVE PROBLEMS: (10) Anemia, iron deficiency (151901860) Asthma (401710505) Autism (2028978069) BMI 25.0-25.9,adult (2192006763) Cystitis, interstitial (265224729) GBS bacteriuria (324122908) Hypoglycemia (425201548) Polyuria (91587650) (862545593) Stress incontinence (750604976) MEDICATIONS: Active Inpt Meds: None Active PRN Meds: None One Time Meds: (Ordered) Lactated Ringers Infusion (Lactated Ringers Bolus) Start: 09/30/22 10:45:00 EDT, Dose = 500 mL, Soln, IV Bolus, Once, Stop: 09/30/22 10:45:00 EDT, Rate: 1,000 mL/hr, hour(s), 09/30/22 10:39:00 EDT (Completed) acetaminophen (Tylenol) Start: 09/30/22 10:45:00 EDT, Dose = 1,000 mg, = 2 tab(s), Oral, Once, Stop: 09/30/22 10:45:00 EDT, 09/30/22 10:41:00 EDT (Ordered) nalbuphine (Nubain) Start: 09/30/22 10:45:00 EDT, Dose = 10 mg, = 1 mL, IV Push, Once, Routine, Stop: 09/30/22 10:45:00 EDT, 09/30/22 10:40:00 EDT (Ordered) ondansetron (Zofran) Start: 09/30/22 10:45:00 EDT, Dose = 4 mg, = 2 mL, IV Push, Once, Stop: 09/30/22 10:45:00 EDT, 09/30/22 10:42:00 EDT Active IV Meds: None ALLERGIES: (1) penicillin FAMILY HISTORY: SOCIAL HISTORY: PHYSICAL EXAM: VITALS: HnpakjFxexBIVeiecVYHhR9RUD8WzenXi(kg) 09/30 10:1436.9--8020--RA09/30 75.0 24 Hr Tmax: 36.9 at 09/30 10:14 36 Hr Tmax: 36.9 at 09/30 10:14 Vital Signs are the last 5 in the past 48 hours. Weights display the last 5 within 7 days. Initial Wt: 09/30 75.0 kg 165 lb Current Wt: 09/30 75.0 kg 165 lb GENERAL: Young white female in no acute distress was alert and oriented x3 and cooperative. She does make eye contact and is able to express herself well. HEENT: Normal CARDIOVASCULAR: Regular rate and rhythm without murmurs RESPIRATORY: Clear to auscultation bilaterally ABDOMEN: Gravid. Soft. Tender especially suprapubically and extending somewhat towards the right lower quadrant There is no uterine activity. heart tones have been noted in the normal range by Doppler Cervix is closed thick and high EXREMETIES: Nontender without edema NEUROLOGICAL: Grossly normal PSYCHIATRIC: Grossly normal LABS: 36hr Labs 09/30 1045 Creatinine Lvl (s)0.52L Albumin Level2.7L Alk Phos55 Amylase Level34 Bili Total0.2 BUN5L Calcium Lvl8.2L Elewmmsg490 CO222 Glucose Level98 Lipase Level40 Potassium Level3.5 Sodium Vnnia347 Total Protein5.6L BUN/Creatinine Ratio10 Globulin2.9 A/G Ratio0.9L AST/SGOT11 ALT/WKXB23L Electrolyte Euomuoz14.0 GFR Non- Caedella803 GFR Xnpibjnx901 Hct28.9L Hgb9.7L MCH28.3 MCHC33.7 MCV84.0 MPV6.9L Uabtikar266 RBC3.44L RDW13.3 WBC9.5 Lymphocyte %15.5 Monocyte %6.5 Neutrophil %76.8 Eosinophil %0.8 Basophil %0.4 Neutrophil, Absolute7.3H Lymphocyte, Absolute1.5 Monocyte, Absolute0.6 Eosinophil, Absolute0.1 Basophil, Absolute0.0 UA AppearSee Flowsheet UA BiliSee Flowsheet UA BloodSee Flowsheet UA ColorSee Flowsheet UA GlucoseSee Flowsheet UA KetonesSee Flowsheet UA Leuk EstSee Flowsheet UA NitriteSee Flowsheet UA ProteinSee Flowsheet UA UrobilinogenSee Flowsheet UA pHSee Flowsheet UA Spec GravSee Flowsheet UA Specimen TypSee Flowsheet DIAGNOSTICS: Obstetric ultrasound shows nothing unusual and the lower uterine segment appears normal. Abdominal ultrasound shows no fluid collection or suspicious kidney or liver findings. Patient was apparently tender all over. IMPRESSION: 1. 21-week intrauterine. 2. Lower abdominal pain of unclear etiology 3. Hypocalcemia 4. Anemia 5. Autism 6. Anxiety 7. History of interstitial cystitis, frequency and stress urinary incontinence PLAN: Labs and ultrasound were obtained as above. An offer of IV hydration was declined by the patient asshe does not tolerate IVs well without her to help distract her and keep her from picking at it and disconnecting it. she has stated this is because of her autism. She does say in labor her will be around to support her and this should be fine. Oral Tylenol was given to the patient despite her pronouncement that Tylenol does not work for her.She was okay to accept this. After benign looking results will send patient home on oral pain med of choice to FU in 1 day. medicare coordinator issues. Nutrition consult for low albumin level. CT Fe, Pyridium x 24 hr, Hydration Digitally Signed by EDDIE NICOLE MD on 09/30/2022 12:57 PM [facility]05-09-2023 Hospital Discharge instructions Patient Education 09/24/2022 12:06:22 [place] [facility] Outpatient Instructions ([facility]) [facility] HOME-GOING INSTRUCTIONS _X_ You are to follow up with your physician in ___ days/weeks. ACTIVITY ___ Bedrest _X__Activity as tolerated ___ No work/school for ___ days. ___Other PRESCRIPTION GIVEN ___Yes NAUSEA/VOMITING ___ Take small, frequent amounts of clear liquids. Avoid fruit juices and milk. ___ Increase fluid intake to a minimum of 8 ounces of fluid every hour while awake. ___ Soft diet. Rice, crackers, bananas, Jell-O, cooked carrots, applesauce. ___ Wirt diet. Avoid caffeine, chocolate, alcohol, spiced/greasy foods. URINARY TRACT INFECTION ___ Drink 8-12 glasses of water every day. ___ Urinate frequently; do not limit fluids to reduce frequency of urination. ___ Call your physician if burning and frequency with urination returns after taking all your medication. ___ Call your physician if you have a temperature of 100.4 degrees Fahrenheit or higher. ___ Wipe from front to back. SIGNS OF PRE-ECLAMPSIA ___ Severe heartburn. ___ Persistent headache not relieved by Tylenol. ___ Increased in swelling of face, hands and feet. ___ Blurred vision, double vision, or spots in the eyes. ___ Persistent vomiting. ___ *Convulsions or seizures. LABOR ___ Restrict activity. ___ Drink 8-12 glasses of water every day. ___ Urinate frequently ___ Pelvic rest. No sexual intercourse/ Call your physician if you experience: _X__ Increase in vaginal discharge, leaking fluid, or vaginal bleeding. _X__ More than 4, 5, or 6 contractions in one hour. _X__ Burning and frequency with urination. DECREASED MOVEMENT ___ Lie down on your left side, drink some fluids and relax. Count the movements. You need tohave 10 movements in 2 hours. ___ If you do not feel the 10 movements, call your physician. OTHER ___ After an exam you may experience some spotting or discharge. As long as it is not bright red and heavy like a period or continues to leak as if your water broke, it is to be expected. ___ LABOR Call your physician if you experience: ___ Painful uterine contractions every ___ minutes for ___ hours. ___A gush or continuous trickle of watery discharge. COME TO THE HOSPITAL AND CALL PHYSICIAN IF: ___ Your abdomen feels continually firm. ___ *Bleeding is bright red and enough to saturate a pad in one hour or less. *Call 911 or go to the nearest Emergency Room for assistance. Form D: 04/26 Follow Up Care 09/24/2022 11:46:17 With:FEDERICO CLAIRE MD Address: [address] [place] [address] [facility] [address] [phone] When: only if needed [facility] 05-09-2023 Emergency department Note* Mahad Smith DO - 09/24/2022 12:53 PM EDT EMERGENCY DEPARTMENT ENCOUNTER Pt Name: Selene Larkin Birthdate 1995 Date of evaluation: 09/24/2022 ED Provider: Mahad Smith DO CHIEF COMPLAINT Chief Complaint Patient presents with Problem HISTORY OF PRESENT ILLNESS (Location/Symptom, Timing/Onset, Context/Setting, Quality, Duration, Modifying Factors, Severity) Note limiting factors. I wore appropriate PPE for the entirety of this encounter. HPI Selene Larkin is a 27 y.o. female who presents to the emergency department with vaginal bleedingand lower abdominal cramping. The patient reports that she is currently 19 weeks . She reports that she was dealing with a hematoma associated with her at outside hospital. She reports that she recently moved to this area and has not yet established care with [facility]. She reportssome bright red spotting last night, followed by some bright red spotting this morning which prompted presentation. Denies other review of systems. Nursing Notes were reviewed. Limitations to history: Outside historians: REVIEW OF SYSTEMS Review of Systems Gastrointestinal: Positive for abdominal pain. Genitourinary: Positive for vaginal bleeding. PAST MEDICAL HISTORY Past Medical History: Diagnosis Date Anemia Asthma Endometriosis Hypoglycemia Interstitial cystitis SURGICAL HISTORY Past Surgical History: Procedure Laterality Date SECTION (HISTORICAL) CHOLECYSTECTOMY N/A LAPAROSCOPY DIAGNOSTIC / BIOPSY / ASPIRATION / LYSIS CURRENT MEDICATIONS There are no discharge medications for this patient. ALLERGIES Penicillins FAMILY HISTORY No family history on file. SOCIAL HISTORY Social History Socioeconomic History Marital status: Tobacco Use Smoking status: Never Smokeless tobacco: Never Substance and Sexual Activity Alcohol use: No Drug use: No SCREENINGS PHYSICAL EXAM ED Triage Vitals [09/24/22 1254] Temp Heart Rate Resp BP 36.7 C (98.1 F) 74 18 114/69 SpO2 Temp Source Heart Rate Source Patient Position 100 % Temporal Monitor Sitting BP Location FiO2 (%) Right arm -- Physical Exam Constitutional: General: She is not in acute distress. HENT: Head: Normocephalic. Eyes: Conjunctiva/sclera: Conjunctivae normal. Pulmonary: Effort: Pulmonary effort is normal. Abdominal: Comments: Gravid abdomen Musculoskeletal: General: No deformity. Skin: General: Skin is warm and dry. Psychiatric: Mood and Affect: Mood normal. DIAGNOSTIC RESULTS RADIOLOGY (Per Emergency Physician): Interpretation per the Radiologist below, if available at the time of this note: US OB limited 1+ fetuses Final Result Single live intrauterine gestation with estimated age of 21 weeks and 0 days based on femur length.The cervix is closed and measures 4 cm in length. [facility] follow-up is recommended. Report Dictated on Electronically Signed By: Hal Ko Electronically Signed Date/Time: 09/24/2022 2:50 PM EDT US OB transvaginal Final Result Single live intrauterine gestation with estimated age of 21 weeks and 0 days based on femur length.The cervix is closed and measures 4 cm in length. [facility] follow-up is recommended. Report Dictated on Electronically Signed By: Hal Ko Electronically Signed Date/Time: 09/24/2022 2:50 PM EDT LABS: Labs Reviewed BASIC METABOLIC PANEL - Abnormal Result Value SODIUM 134 (*) POTASSIUM 3.5 CHLORIDE 111 (*) CARBON DIOXIDE 19 (*) UREA NITROGEN 5 (*) CREATININE 0.47 (*) GLUCOSE 89 CALCIUM 8.3 (*) ANION GAP 5 eGFR >90.0 CBC (HEMOGRAM) - Abnormal Auto WBC 8.1 RBC 3.48 (*) Hemoglobin 9.8 (*) Hematocrit 29.5 (*) MCV 84.7 MCH 28.2 MCHC 33.3 RDW 13.3 Platelets 297 MPV 7.0 (*) COMPLETE URINALYSIS - Abnormal Color, Urine Light Yellow Clarity, Urine Clear pH, Urine 5.5 Leukocytes, Urine Negative Nitrite, Urine Negative Protein, Urine Negative Glucose, Urine Normal Bilirubin, Urine Negative Ketones, Urine Trace (*) Urobilinogen, Urine Normal Blood, Urine Negative SPECIFIC GRAVITY OF URINE (NUMERIC) 1.010 BLOOD TYPE AND SCREEN GEL ABO Grouping A Antibody Screen NEG Rh Type POS HCG QUANTITATIVE BLOOD HCG QUANTITATIVE 24,018 Narrative: Values in should double every 2 to 3 days for the first 6 weeks. Elevated concentrations of human chorionic gonadotropin (hCG) measured in the first trimester of are observed in normal , but may serve as an indication of chorionic carcinoma, hydatiform mole, or multiplepregnancy. Decreasing hCG concentrations indicate threatened or missed , recent terminationof , ectopic , gestosis or intrauterine . Gal[place]- and postmenopausal females may have detectable hCG concentrations (< or = to 14 mIU/mL) due to pituitary production of hCG. Serum follicle-stimulating hormone measurement may aid in ruling-out in this population. Cutoffs of greater than 20 to 45 mIU/mL have been suggested and are method dependent. False-elevations(called phantom human chorionic gonadotropin: hCG) may occur with patients who have human antianimal or heterophilic antibodies. Some specimens may not dilute linearly due to abnormal forms of hCG. Elevated hCG concentrations not associated with are found in patients with other diseases such as tumors of the germ cells, ovaries, bladder, pancreas, stomach, lungs, and liver. This test isnot intended to detect or monitor tumors or gestational trophoblastic disease. COMPLETE URINALYSIS WITH REFLEX TO CULTURE Narrative: The following orders were created for panel order Urinalysis complete with reflex to Culture. Procedure Abnormality Status --------- ------ Complete Urinalysis[[id number]] Abnormal Final result Please view results for these tests on the individual orders. All other labs were within normal range or not returned as of this dictation. EMERGENCY DEPARTMENT COURSE and DIFFERENTIAL DIAGNOSIS/MDM: Vitals: Vitals: 09/24/22 1254 09/24/22 1421 09/24/22 1540 BP: 114/69 108/65 110/67 BP Location: Right arm Right arm Patient Position: Sitting Sitting Pulse: 74 73 77 Resp: 18 18 18 Temp: 36.7 C (98.1 F) TempSrc: Temporal SpO2: 100% 100% 100% Medications - No data to display MDM The patient presented with chief complaint of vaginal bleeding and abdominal cramping in .The patient is currently 19 weeks . The patient is well-appearing, no acute distress, vitals are stable. The patient reports minor spotting last night and this morning which prompted presentation to the ED. Differential diagnosis includes but is not limited to threatened miscarriage, placenta previa. To aid in management, I performed an independent interpretation of all laboratory tests, EKG, imaging, and other diagnostics ordered. Labs are negative for acute processes. Ultrasound reveals live intrauterine about 21 weeks. The patient is not bleeding at this time. The patient was updated on results, questions were answered. Plan for discharge with close follow-up to [facility] to establish care in this region. Patient was instructed to return to the ED if symptoms change or worsen. The patient demonstrated general understanding and was agreeable to medical plan. I Mahad Smith DO am the carbon brusher assembler of record. PROCEDURES: Unless otherwise noted below, none Procedures FINAL IMPRESSION 1. Threatened miscarriage DISPOSITION Discharge 09/24/2022 03:29:56 PM PATIENT REFERRED TO: [facility] [address] [facility] [address] [facility] [address] Schedule an appointment as soon as possible for a visit [facility] [address] If symptoms worsen DISCHARGE MEDICATIONS: There are no discharge medications for this patient. (Comment: Please note this report has been produced using speech recognition software and may contain errors related to that system including errors in grammar, punctuation, and spelling, as well as words and phrases that may be inappropriate. If there are any questions or concerns please feel freeto contact the dictating provider for clarification.) Mahad Smith DO (electronically signed) Emergency Medicine Provider Mahad Smith DO 09/24/22 1636 * She Rodriguez RN - 09/24/2022 12:53 PM EDT Pt is 19 weeks preg and states starting last night she started having vaginal bleeding/cramping. [id number] Emergency department Triage note* She Rodriguez RN - 09/24/2022 12:53 PM EDT Pt is 19 weeks preg and states starting last night she started having vaginal bleeding/cramping. [id number] Emergency department Note* Mahad Smith DO - 09/24/2022 12:53 PM EDT EMERGENCY DEPARTMENT ENCOUNTER Pt Name: Selene Larkin Birthdate 1995 Date of evaluation: 09/24/2022 ED Provider: Mahad Smith DO CHIEF COMPLAINT Chief Complaint Patient presents with Problem HISTORY OF PRESENT ILLNESS (Location/Symptom, Timing/Onset, Context/Setting, Quality, Duration, Modifying Factors, Severity) Note limiting factors. I wore appropriate PPE for the entirety of this encounter. HPI Selene Larkin is a 27 y.o. female who presents to the emergency department with vaginal bleedingand lower abdominal cramping. The patient reports that she is currently 19 weeks . She reports that she was dealing with a hematoma associated with her at outside hospital. She reports that she recently moved to this area and has not yet established care with [facility]. She reportssome bright red spotting last night, followed by some bright red spotting this morning which prompted presentation. Denies other review of systems. Nursing Notes were reviewed. Limitations to history: Outside historians: REVIEW OF SYSTEMS Review of Systems Gastrointestinal: Positive for abdominal pain. Genitourinary: Positive for vaginal bleeding. PAST MEDICAL HISTORY Past Medical History: Diagnosis Date Anemia Asthma Endometriosis Hypoglycemia Interstitial cystitis SURGICAL HISTORY Past Surgical History: Procedure Laterality Date SECTION (HISTORICAL) CHOLECYSTECTOMY N/A LAPAROSCOPY DIAGNOSTIC / BIOPSY / ASPIRATION / LYSIS CURRENT MEDICATIONS There are no discharge medications for this patient. ALLERGIES Penicillins FAMILY HISTORY No family history on file. SOCIAL HISTORY Social History Socioeconomic History Marital status: Tobacco Use Smoking status: Never Smokeless tobacco: Never Substance and Sexual Activity Alcohol use: No Drug use: No SCREENINGS PHYSICAL EXAM ED Triage Vitals [09/24/22 1254] Temp Heart Rate Resp BP 36.7 C (98.1 F) 74 18 114/69 SpO2 Temp Source Heart Rate Source Patient Position 100 % Temporal Monitor Sitting BP Location FiO2 (%) Right arm -- Physical Exam Constitutional: General: She is not in acute distress. HENT: Head: Normocephalic. Eyes: Conjunctiva/sclera: Conjunctivae normal. Pulmonary: Effort: Pulmonary effort is normal. Abdominal: Comments: Gravid abdomen Musculoskeletal: General: No deformity. Skin: General: Skin is warm and dry. Psychiatric: Mood and Affect: Mood normal. DIAGNOSTIC RESULTS RADIOLOGY (Per Emergency Physician): Interpretation per the Radiologist below, if available at the time of this note: US OB limited 1+ fetuses Final Result Single live intrauterine gestation with estimated age of 21 weeks and 0 days based on femur length.The cervix is closed and measures 4 cm in length. [facility]OMOEOPATH follow-up is recommended. Report Dictated on Electronically Signed By: Hal Ko Electronically Signed Date/Time: 09/24/2022 2:50 PM EDT US OB transvaginal Final Result Single live intrauterine gestation with estimated age of 21 weeks and 0 days based on femur length.The cervix is closed and measures 4 cm in length. [facility]OE[facility]ATH follow-up is recommended. Report Dictated on Electronically Signed By: Hal Ko Electronically Signed Date/Time: 09/24/2022 2:50 PM EDT LABS: Labs Reviewed BASIC METABOLIC PANEL - Abnormal Result Value SODIUM 134 (*) POTASSIUM 3.5 CHLORIDE 111 (*) CARBON DIOXIDE 19 (*) UREA NITROGEN 5 (*) CREATININE 0.47 (*) GLUCOSE 89 CALCIUM 8.3 (*) ANION GAP 5 eGFR >90.0 CBC (HEMOGRAM) - Abnormal Auto WBC 8.1 RBC 3.48 (*) Hemoglobin 9.8 (*) Hematocrit 29.5 (*) MCV 84.7 MCH 28.2 MCHC 33.3 RDW 13.3 Platelets 297 MPV 7.0 (*) COMPLETE URINALYSIS - Abnormal Color, Urine Light Yellow Clarity, Urine Clear pH, Urine 5.5 Leukocytes, Urine Negative Nitrite, Urine Negative Protein, Urine Negative Glucose, Urine Normal Bilirubin, Urine Negative Ketones, Urine Trace (*) Urobilinogen, Urine Normal Blood, Urine Negative SPECIFIC GRAVITY OF URINE (NUMERIC) 1.010 BLOOD TYPE AND SCREEN GEL ABO Grouping A Antibody Screen NEG Rh Type POS HCG QUANTITATIVE BLOOD HCG QUANTITATIVE 24,018 Narrative: Values in should double every 2 to 3 days for the first 6 weeks. Elevated concentrations of human chorionic gonadotropin (hCG) measured in the first trimester of are observed in normal , but may serve as an indication of chorionic carcinoma, hydatiform mole, or multiplepregnancy. Decreasing hCG concentrations indicate threatened or missed , recent terminationof , ectopic , gestosis or intrauterine . Galina- and postmenopausal females may have detectable hCG concentrations (< or = to 14 mIU/mL) due to pituitary production of hCG. Serum follicle-stimulating hormone measurement may aid in ruling-out in this population. Cutoffs of greater than 20 to 45 mIU/mL have been suggested and are method dependent. False-elevations(called phantom human chorionic gonadotropin: hCG) may occur with patients who have human antianimal or heterophilic antibodies. Some specimens may not dilute linearly due to abnormal forms of hCG. Elevated hCG concentrations not associated with are found in patients with other diseases such as tumors of the germ cells, ovaries, bladder, pancreas, stomach, lungs, and liver. This test isnot intended to detect or monitor tumors or gestational trophoblastic disease. COMPLETE URINALYSIS WITH REFLEX TO CULTURE Narrative: The following orders were created for panel order Urinalysis complete with reflex to Culture. Procedure Abnormality Status --------- ------ Complete Urinalysis[[id number]] Abnormal Final result Please view results for these tests on the individual orders. All other labs were within normal range or not returned as of this dictation. EMERGENCY DEPARTMENT COURSE and DIFFERENTIAL DIAGNOSIS/MDM: Vitals: Vitals: 09/24/22 1254 09/24/22 1421 09/24/22 1540 BP: 114/69 108/65 110/67 BP Location: Right arm Right arm Patient Position: Sitting Sitting Pulse: 74 73 77 Resp: 18 18 18 Temp: 36.7 C (98.1 F) TempSrc: Temporal SpO2: 100% 100% 100% Medications - No data to display MDM The patient presented with chief complaint of vaginal bleeding and abdominal cramping in .The patient is currently 19 weeks . The patient is well-appearing, no acute distress, vitals are stable. The patient reports minor spotting last night and this morning which prompted presentation to the ED. Differential diagnosis includes but is not limited to threatened miscarriage, placenta previa. To aid in management, I performed an independent interpretation of all laboratory tests, EKG, imaging, and other diagnostics ordered. Labs are negative for acute processes. Ultrasound reveals live intrauterine about 21 weeks. The patient is not bleeding at this time. The patient was updated on results, questions were answered. Plan for discharge with close follow-up to [facility] to establish care in this region. Patient was instructed to return to the ED if symptoms change or worsen. The patient demonstrated general understanding and was agreeable to medical plan. I Mahad Smith DO am the carbon brusher assembler of record. PROCEDURES: Unless otherwise noted below, none Procedures FINAL IMPRESSION 1. Threatened miscarriage DISPOSITION Discharge 09/24/2022 03:29:56 PM PATIENT REFERRED TO: [facility] [address] [place] [address] Schedule an appointment as soon as possible for a visit [facility] ED [address] [facility] [address] If symptoms worsen DISCHARGE MEDICATIONS: There are no discharge medications for this patient. (Comment: Please note this report has been produced using speech recognition software and may contain errors related to that system including errors in grammar, punctuation, and spelling, as well as words and phrases that may be inappropriate. If there are any questions or concerns please feel freeto contact the dictating provider for clarification.) Mahad Smith DO (electronically signed) Emergency Medicine Provider Mahad Smith DO 09/24/22 1636 [facility] Work Phone: 1(436) 585-673904-30-2023 Note. MICRO - Microbiology PROCEDURE: Urine Culture [*1] SOURCE: Urine, Clean Catch BODY SITE: COLLECTED DATE/TIME: 09/12/2022 11:41 EDT RECEIVED DATE/TIME: 09/12/2022 21:15 EDT START DATE/TIME: 09/12/2022 21:16 EDT FREE TEXT SOURCE: FINAL REPORTS Final Report [] Verified Date/Time/Personnel: 09/15/2022 11:47 EDT 10,000 - 50,000 cfu/ml Multiple bacterial morphotypes present. Probable Contamination. Suggest recollection if clinically indicated. including 1,000 cfu/ml Group B Beta Hemolytic Strep (Strep agalactiae) Sensitivity testing is not recommended for one of the following reasons: 1. Established susceptibility patterns are available or 2. Interpretative criteria are not available. PRELIMINARY REPORTS Preliminary Report [] Verified Date/Time/Personnel: 09/13/2022 09:41 EDT Culture results pending. Performing Locations *1: This test was performed at: [address], [address] , [facility] ([place])09-13-2022 Note. MICRO - Microbiology PROCEDURE: Affirm Pathogens DNA Direct Probe [*1] SOURCE: Vaginal Fluid BODY SITE: Vagina COLLECTED DATE/TIME: 09/12/2022 11:41 EDT RECEIVED DATE/TIME: 09/12/2022 20:32 EDT START DATE/TIME: 09/12/2022 20:32 EDT FREE TEXT SOURCE: FINAL REPORTS Final Report [] Verified Date/Time/Personnel: 09/13/2022 09:29 EDT Heena species DNA Probe Negative Gardnerella vaginalis DNA Probe Negative Trichomonas vaginalis DNA Probe Negative Performing Locations *1: This test was performed at: [address], [address] , [facility] ([place])09-12-2022 Evaluation + Plan note Future Scheduled Tests Radiology* US OB Limited/Transvaginal 09/12/22 * US OB > 14 weeks 11/15/22 * US Obstetrical 07/20/22 * US Transvaginal OB 07/25/22 [facility] 03-15-2023 Hospital Discharge instructions* Discharge Instructions* Mahad Castillo DO - 07/31/2022 3:34 PM EDT Return if any new or worsening symptoms. Return if any chest pain or shortness of breath. Follow-upwith your primary care provider. Follow up with your globe mounter * Attachments The following attachments cannot be sent through Care Everywhere. * Miscarriage: Threatened ([place]jiboutian) documented in this encounterB[facility] Work Phone: 1(137) 514-897102-10-2023 Hospital Discharge instructions* Discharge Instructions* LEONARDO Lyons CNP - 06/28/2022 9:22 PM EST Pelvic rest nothing in the vagina no tampons, no sexual intercourse until you are examined by nail mill worker. No heavy lifting greater than a gallon of milk. Return to the ED for any excessive bleedingmore than 1 menstrual pad an hour for 3 consecutive hours or pain out of proportion. * Attachments The following attachments cannot be sent through Care Everywhere. * Miscarriage: Threatened (Djiboutian) * : Subchorionic Hematoma (Djiboutian) * : UTI (Urinary Tract Infection) (Djiboutian) documented in this encounterBON [employer] Work Phone: 1(771) 597-974312-09-2021 Hospital Discharge instructions Patient Education 04/26/2021 16:26:04 Hand Washing, Phzy-qj-[id number] Hand Washing Germs such as bacteria, viruses, and parasites are found everywhere. They can be in the air and water. They can also be on surfaces like food, door handles, and your skin. Every day, your hands touchgerms. Many of these germs can make you and your family sick. Washing your hands is one of the bestways to lower your risk of getting and sharing germs. When should I wash my hands? You should wash your hands whenever you think they are dirty. You should also wash your hands: Before: ?Visiting a baby or anyone with a weakened disease-fighting system (immunesystem). ?Putting in and taking out contact lenses. After: ?Using the bathroom or helping someone else use the bathroom. ?Working or playing outside. ?Touching or taking out the garbage. ?Touching anything dirty around your home. ?Sneezing, coughing, or blowing your nose. ?Using a phone, including your mobile phone. ?Touching an animal, animal food, animal poop, or its toys or leash. ?Touching money. ?Using household custom car builder or poisonous chemicals. ?Handling dirty clothes, bedding, or rags. ?Using public transportation. ?Going shopping, especially if you use a shopping cart or basket. ?Shaking hands. ?Handling livestock, such as cows or sheep. Before and after: ?Preparing food. ?Eating. ?Visiting or taking care of someone who is sick. This includes touching used tissues, toys, and clothes. ?Changing a bandage (dressing). ?Taking care of an injury or wound. ?Giving or taking medicine. ?Preparing a bottle for a baby. ?Feeding a baby or young child. ?Changing a diaper. What is the right way to wash my hands? 1.Wet your hands with clean, running water. Turn off the water or move your hands out of the running water. 2.Apply liquid soap or bar soap to your hands. 3.Rub your hands together quickly to create lather. 4.Keep rubbing your hands together for at least 20 seconds. Thoroughly scrub all parts of your hands. This includes scrubbing under your fingernails and between your fingers. 5.Rinse your hands with clean, running water. Do this until all the soap is gone. 6.Dry your hands using an air dryer or a clean paper or cloth towel, or let your hands air-dry. Do not use your clothing or a dirty towel to dry your hands. If you are in a public restroom, use your towel: To turn off the water faucet. To open the bathroom door. How can I clean my hands if I do not have soap and water? If soap and clean water are not available, use a hand-washing wipe, spray, or gel (hand glass driller).Use one that contains at least 60% alcohol. If you are handling food, gels are not recommended as areplacement for hand washing with soap and water. To use these products, follow the directions on the product, and: Apply enough product to cover your hands. Make sure you wipe, rub, or spray the product so that it reaches every part of your hands and wrists. Include the backs of your hands, between your fingers, and under your fingernails. Rub the product onto your hands until it dries. Summary Every day, your hands touch germs. Many of these germs can make you and your family sick. Washing your hands is one of the best ways to lower your risk of getting and sharing germs. If soap and clean water are not available, use a hand-washing wipe, spray, or gel. This information is not intended to replace advice given to you by your health care provider. Make sure you discuss any questions you have with your health care provider. Document Released: 04/17/2009 Document Revised: 02/11/2018 Document Reviewed: 02/11/2018 [employer] Patient Education 2020 [employer] 04/26/2021 16:25:44 General Anesthesia, Adult, Care After General Anesthesia, Adult, Care After This sheet gives you information about how to care for yourself after your procedure. Your health care provider may also give you more specific instructions. If you have problems or questions, contact your health care provider. What can I expect after the procedure? After the procedure, the following side effects are common: Pain or discomfort at the IV site. Nausea. Vomiting. Sore throat. Trouble concentrating. Feeling cold or chills. Weak or tired. Sleepiness and fatigue. Soreness and body aches. These side effects can affect parts of the body that were not involved in surgery. Follow these instructions at home: For at least 24 hours after the procedure: Have a responsible adult stay with you. It is important to have someone help care for you until youare awake and alert. Rest as needed. Do not: ?Participate in activities in which you could fall or become injured. ?Drive. ?Use heavy machinery. ?Drink alcohol. ?Take sleeping pills or medicines that cause drowsiness. ?Make important decisions or sign legal documents. ?Take care of children on your own. Eating and drinking Follow any instructions from your health care provider about eating or drinking restrictions. When you feel hungry, start by eating small amounts of foods that are soft and easy to digest (bland), such as toast. Gradually return to your regular diet. Drink enough fluid to keep your urine pale yellow. If you vomit, rehydrate by drinking water, juice, or clear broth. General instructions If you have sleep apnea, surgery and certain medicines can increase your risk for breathing problems. Follow instructions from your health care provider about wearing your sleep device: ?Anytime you are sleeping, including during daytime naps. ?While taking prescription pain medicines, sleeping medicines, or medicines that make you drowsy. Return to your normal activities as told by your health care provider. Ask your health care provider what activities are safe for you. Take gqjj-zoh-naczeij and prescription medicines only as told by your health care provider. If you smoke, do not smoke without supervision. Keep all follow-up visits as told by your health care provider. This is important. Contact a health care provider if: You have nausea or vomiting that does not get better with medicine. You cannot eat or drink without vomiting. You have pain that does not get better with medicine. You are unable to pass urine. You develop a skin rash. You have a fever. You have redness around your IV site that gets worse. Get help right away if: You have difficulty breathing. You have chest pain. You have blood in your urine or stool, or you vomit blood. Summary After the procedure, it is common to have a sore throat or nausea. It is also common to feel tired. Have a responsible adult stay with you for the first 24 hours after general anesthesia. It is important to have someone help care for you until you are awake and alert. When you feel hungry, start by eating small amounts of foods that are soft and easy to digest (bland), such as toast. Gradually return to your regular diet. Drink enough fluid to keep your urine pale yellow. Return to your normal activities as told by your health care provider. Ask your health care provider what activities are safe for you. This information is not intended to replace advice given to you by your health care provider. Make sure you discuss any questions you have with your health care provider. Document Released: 08/11/2001 Document Revised: 05/08/2018 Document Reviewed: 12/19/2017 [employer] 2020 [employer] 04/26/2021 16:25:33 Hysteroscopy, Care After Hysteroscopy, Care After This sheet gives you information about how to care for yourself after your procedure. Your health care provider may also give you more specific instructions. If you have problems or questions, contact your health care provider. What can I expect after the procedure? After the procedure, it is common to have: Cramping. Bleeding. This can vary from light spotting to menstrual-like bleeding. Follow these instructions at home: Activity Rest for 1 2 days after the procedure. Do not douche, use tampons, or have sex for 2 weeks after the procedure, or until your health care provider approves. Do not drive for 24 hours after the procedure, or for as long as told by your health care provider. Do not drive, use heavy machinery, or drink alcohol while taking prescription pain medicines. Medicines Take ovoq-xyb-ciisoad and prescription medicines only as told by your health care provider. Do not take aspirin during recovery. It can increase the risk of bleeding. General instructions Do not take baths, swim, or use a hot tub until your health care provider approves. Take showers instead of baths for 2 weeks, or for as long as told by your health care provider. To prevent or treat constipation while you are taking prescription pain medicine, your health care provider may recommend that you: ?Drink enough fluid to keep your urine clear or pale yellow. ?Take txnd-hrq-hdvwwdw or prescription medicines. ?Eat foods that are high in fiber, such as fresh fruits and vegetables, whole grains, and beans. ?Limit foods that are high in fat and processed sugars, such as fried and sweet foods. Keep all follow-up visits as told by your health care provider. This is important. Contact a health care provider if: You feel dizzy or lightheaded. You feel nauseous. You have abnormal vaginal discharge. You have a rash. You have pain that does not get better with medicine. You have chills. Get help right away if: You have bleeding that is heavier than a normal menstrual period. You have a fever. You have pain or cramps that get worse. You develop new abdominal pain. You faint. You have pain in your shoulders. You have shortness of breath. Summary After the procedure, you may have cramping and some vaginal bleeding. Do not douche, use tampons, or have sex for 2 weeks after the procedure, or until your health care provider approves. Do not take baths, swim, or use a hot tub until your health care provider approves. Take showers instead of baths for 2 weeks, or for as long as told by your health care provider. Report any unusual symptoms to your health care provider. Keep all follow-up visits as told by your health care provider. This is important. This information is not intended to replace advice given to you by your health care provider. Make sure you discuss any questions you have with your health care provider. Document Released: 02/23/2014 Document Revised: 04/17/2018 Document Reviewed: 06/03/2017 [employer] Education 2020 [employer] 04/26/2021 16:25:21 Dilation and Curettage or Vacuum Curettage, Care After, Aufq-zl-Jwgw Dilation and Curettage or Vacuum Curettage, Care After These instructions give you information about caring for yourself after your procedure. Your doctormay also give you more specific instructions. Call your doctor if you have any problems or questions after your procedure. Follow these instructions at home: Activity Do not drive or use heavy machinery while taking prescription pain medicine. For 24 hours after your procedure, avoid driving. Take short walks often, followed by rest periods. Ask your doctor what activities are safe for you.After one or two days, you may be able to return to your normal activities. Do not lift anything that is heavier than 10 lb (4.5 kg) until your doctor approves. For at least 2 weeks, or as long as told by your doctor: ?Do not douche. ?Do not use tampons. ?Do not have sex. General instructions Take iqde-yyp-rnkwsft and prescription medicines only as told by your doctor. This is very important if you take blood thinning medicine. Do not take baths, swim, or use a hot tub until your doctor approves. Take showers instead of baths. Wear compression stockings as told by your doctor. It is up to you to get the results of your procedure. Ask your doctor when your results will be ready. Keep all follow-up visits as told by your doctor. This is important. Contact a doctor if: You have very bad cramps that get worse or do not get better with medicine. You have very bad pain in your belly (abdomen). You cannot drink fluids without throwing up (vomiting). You get pain in a different part of the area between your belly and thighs (pelvis). You have bad-smelling discharge from your vagina. You have a rash. Get help right away if: You are bleeding a lot from your vagina. A lot of bleeding means soaking more than one sanitary shante an hour, for 2 hours in a row. You have clumps of blood (blood clots) coming from your vagina. You have a fever or chills. Your belly feels very tender or hard. You have chest pain. You have trouble breathing. You cough up blood. You feel dizzy. You feel light-headed. You pass out (faint). You have pain in your neck or shoulder area. Summary Take short walks often, followed by rest periods. Ask your doctor what activities are safe for you.After one or two days, you may be able to return to your normal activities. Do not lift anything that is heavier than 10 lb (4.5 kg) until your doctor approves. Do not take baths, swim, or use a hot tub until your doctor approves. Take showers instead of baths. Contact your doctor if you have any symptoms of infection, like bad-smelling discharge from your vagina. This information is not intended to replace advice given to you by your health care provider. Make sure you discuss any questions you have with your health care provider. Document Released: 02/11/2009 Document Revised: 04/17/2018 Document Reviewed: 01/20/2017 [employer] 2020 [employer] 04/26/2021 16:25:14 Nausea and Vomiting, Adult, Msem-sq-Goit Nausea and Vomiting, Adult Nausea is feeling sick to your stomach or feeling that you are about to throw up (vomit). Vomiting is when food in your stomach is thrown up and out of the mouth. Throwing up can make you feel weak. It can also make you lose too much water in your body (get dehydrated). If you lose too much water in your body, you may: Feel tired. Feel thirsty. Have a dry mouth. Have cracked lips. Go pee (urinate) less often. Older adults and people with other diseases or a weak body defense system (immune system) are at higher risk for losing too much water in the body. If you feel sick to your stomach and you throw up, it is important to follow instructions from your doctor about how to take care of yourself. Follow these instructions at home: Watch your symptoms for any changes. Tell your doctor about them. Follow these instructions to carefor yourself at home. Eating and drinking Take an ORS (oral rehydration solution). This is a drink that is sold at pharmacies and stores. Drink clear fluids in small amounts as you are able, such as: ?Water. ?Ice chips. ?Fruit juice that has water added (diluted fruit juice). ?Low-calorie sports drinks. Eat bland, wncf-dv-emysgq foods in small amounts as you are able, such as: ?Bananas. ?Applesauce. ?Rice. ?Low-fat (lean) meats. ?[place]. ?Crackers. Avoid drinking fluids that have a lot of sugar or caffeine in them. This includes energy drinks, sports drinks, and soda. Avoid alcohol. Avoid spicy or fatty foods. General instructions Take zyno-kym-ryzdwzv and prescription medicines only as told by your doctor. Drink enough fluid to keep your pee (urine) pale yellow. Wash your hands often with soap and water. If you cannot use soap and water, use hand glass driller. Make sure that all people in your home wash their hands well and often. Rest at home while you get better. Watch your condition for any changes. Take slow and deep breaths when you feel sick to your stomach. Keep all follow-up visits as told by your doctor. This is important. Contact a doctor if: Your symptoms get worse. You have new symptoms. You have a fever. You cannot drink fluids without throwing up. You feel sick to your stomach for more than 2 days. You feel light-headed or dizzy. You have a headache. You have muscle cramps. You have a rash. You have pain while peeing. Get help right away if: You have pain in your chest, neck, arm, or jaw. You feel very weak or you pass out (faint). You throw up again and again. You have throw up that is bright red or looks like black coffee grounds. You have bloody or black poop (stools) or poop that looks like tar. You have a very bad headache, a stiff neck, or both. You have very bad pain, cramping, or bloating in your belly (abdomen). You have trouble breathing. You are breathing very quickly. Your heart is beating very quickly. Your skin feels cold and clammy. You feel confused. You have signs of losing too much water in your body, such as: ?Dark pee, very little pee, or no pee. ?Cracked lips. ?Dry mouth. ?Sunken eyes. ?Sleepiness. ?Weakness. These symptoms may be an emergency. Do not wait to see if the symptoms will go away. Get medical help right away. Call your local emergency services (911 in the [place] Do not drive yourself to the hospital. Summary Nausea is feeling sick to your stomach or feeling that you are about to throw up (vomit). Vomiting is when food in your stomach is thrown up and out of the mouth. Follow instructions from your doctor about eating and drinking to keep from losing too much water in your body. Take uxao-kvz-hygtflr and prescription medicines only as told by your doctor. Contact your doctor if your symptoms get worse or you have new symptoms. Keep all follow-up visits as told by your doctor. This is important. This information is not intended to replace advice given to you by your health care provider. Make sure you discuss any questions you have with your health care provider. Document Released: 10/21/2008 Document Revised: 08/27/2019 Document Reviewed: 10/13/2018 [employer] Patient [employer] 2020 [employer] 04/26/2021 16:25:04 Deep Vein Thrombosis Deep Vein Thrombosis Deep vein thrombosis (DVT) is a condition in which a blood clot forms in a deep vein, such as a lower leg, thigh, or arm vein. A clot is blood that has thickened into a gel or solid. This condition is dangerous. It can lead to serious and even life-threatening complications if the clot travels to the lungs and causes a blockage (pulmonary embolism). It can also damage veins in the leg. This can result in leg pain, swelling, discoloration, and sores (post- thrombotic syndrome). What are the causes? This condition may be caused by: A slowdown of blood flow. Damage to a vein. A condition that causes blood to clot more easily, such as an inherited clotting disorder. What increases the risk? The following factors may make you more likely to develop this condition: Being overweight. Being older, especially over age 60. Sitting or lying down for more than four hours. Being in the hospital. Lack of physical activity (sedentary lifestyle). , being in childbirth, or having recently given . Taking medicines that contain estrogen, such as medicines to prevent . Smoking. A history of any of the following: ?Blood clots or a blood clotting disease. ?Peripheral vascular disease. ?Inflammatory bowel disease. ?Cancer. ?Heart disease. ?Genetic conditions that affect how your blood clots, such as Factor V Leiden mutation. ?Neurological diseases that affect your legs (leg paresis). ?A recent injury, such as a car accident. ?Major or lengthy surgery. ?A central line placed inside a large vein. What are the signs or symptoms? Symptoms of this condition include: Swelling, pain, or tenderness in an arm or leg. Warmth, redness, or discoloration in an arm or leg. If the clot is in your leg, symptoms may be more noticeable or worse when you stand or walk. Some people may not develop any symptoms. How is this diagnosed? This condition is diagnosed with: A medical history and physical exam. Tests, such as: ?Blood tests. These are done to check how well your blood clots. ?Ultrasound. This is done to check for clots. ?Venogram. For this test, contrast dye is injected into a vein and X-rays are taken to check for any clots. How is this treated? Treatment for this condition depends on: The cause of your DVT. Your risk for bleeding or developing more clots. Any other medical conditions that you have. Treatment may include: Taking a blood thinner (anticoagulant). This type of medicine prevents clots from forming. It may be taken by mouth, injected under the skin, or injected through an IV (catheter). Injecting clot-dissolving medicines into the affected vein (catheter-directed thrombolysis). Having surgery. Surgery may be done to: ?Remove the clot. ?Place a filter in a large vein to catch blood clots before they reach the lungs. Some treatments may be continued for up to six months. Follow these instructions at home: If you are taking blood thinners: Take the medicine exactly as told by your health care provider. Some blood thinners need to be taken at the same time every day. Do not skip a dose. Talk with your health care provider before you take any medicines that contain aspirin or NSAIDs. These medicines increase your risk for dangerous bleeding. Ask your health care provider about foods and drugs that could change the way the medicine works (may interact). Avoid those things if your health care provider tells you to do so. Blood thinners can cause easy bruising and may make it difficult to stop bleeding. Because of this: ?Be very careful when using knives, scissors, or other sharp objects. ?Use an electric razor instead of a blade. ?Avoid activities that could cause injury or bruising, and follow instructions about how to preventfalls. Wear a medical alert bracelet or carry a card that lists what medicines you take. General instructions Take guwc-gvl-hiocmgd and prescription medicines only as told by your health care provider. Return to your normal activities as told by your health care provider. Ask your health care provider what activities are safe for you. Wear compression stockings if recommended by your health care provider. Keep all follow-up visits as told by your health care provider. This is important. How is this prevented? To lower your risk of developing this condition again: For 30 or more minutes every day, do an activity that: ?Involves moving your arms and legs. ?Increases your heart rate. When traveling for longer than four hours: ?Exercise your arms and legs every hour. ?Drink plenty of water. ?Avoid drinking alcohol. Avoid sitting or lying for a long time without moving your legs. If you have surgery or you are hospitalized, ask about ways to prevent blood clots. These may include taking frequent walks or using anticoagulants. Stay at a healthy weight. If you are a woman who is older than age 35, avoid unnecessary use of medicines that contain estrogen, such as some control pills. Do not use any products that contain nicotine or tobacco, such as cigarettes and e-cigarettes. Thisis especially important if you take estrogen medicines. If you need help quitting, ask your health care provider. Contact a health care provider if: You miss a dose of your blood thinner. Your menstrual period is heavier than usual. You have unusual bruising. Get help right away if: You have: ?New or increased pain, swelling, or redness in an arm or leg. ?Numbness or tingling in an arm or leg. ?Shortness of breath. ?Chest pain. ?A rapid or irregular heartbeat. ?A severe headache or confusion. ?A cut that will not stop bleeding. There is blood in your vomit, stool, or urine. You have a serious fall or accident, or you hit your head. You feel light-headed or dizzy. You cough up blood. These symptoms may represent a serious problem that is an emergency. Do not wait to see if the symptoms will go away. Get medical help right away. Call your local emergency services (911 in the [place] Do not drive yourself to the hospital. Summary Deep vein thrombosis (DVT) is a condition in which a blood clot forms in a deep vein, such as a lower leg, thigh, or arm vein. Symptoms can include swelling, warmth, pain, and redness in your leg or arm. This condition may be treated with a blood thinner (anticoagulant medicine), medicine that is injected to dissolve blood clots,compression stockings, or surgery. If you are prescribed blood thinners, take them exactly as told. This information is not intended to replace advice given to you by your health care provider. Make sure you discuss any questions you have with your health care provider. Document Released: 05/05/2006 Document Revised: 04/17/2018 Document Reviewed: 10/03/2017 [employer] 2020 [employer] 04/26/2021 16:04:44 Dilation and Curettage or Vacuum Curettage, Care After Dilation and Curettage or Vacuum Curettage, Care After This sheet gives you information about how to care for yourself after your procedure. Your health care provider may also give you more specific instructions. If you have problems or questions, contact your health care provider. What can I expect after the procedure? After your procedure, it is common to have: Mild pain or cramping. Some vaginal bleeding or spotting. These may last for up to 2 weeks after your procedure. Follow these instructions at home: Activity Do not drive or use heavy machinery while taking prescription pain medicine. Avoid driving for the first 24 hours after your procedure. Take frequent, short walks, followed by rest periods, throughout the day. Ask your health care provider what activities are safe for you. After 1 2 days, you may be able to return to your normal activities. Do not lift anything heavier than 10 lb (4.5 kg) until your health care provider approves. For at least 2 weeks, or as long as told by your health care provider, do not: ?Douche. ?Use tampons. ?Have sexual intercourse. General instructions Take bwkm-cpd-brwdksw and prescription medicines only as told by your health care provider. This isespecially important if you take blood thinning medicine. Do not take baths, swim, or use a hot tub until your health care provider approves. Take showers instead of baths. Wear compression stockings as told by your health care provider. These stockings help to prevent blood clots and reduce swelling in your legs. It is your responsibility to get the results of your procedure. Ask your health care provider, or the department performing the procedure, when your results will be ready. Keep all follow-up visits as told by your health care provider. This is important. Contact a health care provider if: You have severe cramps that get worse or that do not get better with medicine. You have severe abdominal pain. You cannot drink fluids without vomiting. You develop pain in a different area of your pelvis. You have bad-smelling vaginal discharge. You have a rash. Get help right away if: You have vaginal bleeding that soaks more than one sanitary pad in 1 hour, for 2 hours in a row. You pass large blood clots from your vagina. You have a fever that is above 100.4 F (38.0 C). Your abdomen feels very tender or hard. You have chest pain. You have shortness of breath. You cough up blood. You feel dizzy or light-headed. You faint. You have pain in your neck or shoulder area. This information is not intended to replace advice given to you by your health care provider. Make sure you discuss any questions you have with your health care provider. Document Released: 05/02/2001 Document Revised: 04/17/2018 Document Reviewed: 12/05/2016 [employer]. Follow Up Care 04/26/2021 08:44:45 With:BRANDO REGALADO Address: [phone] When: Unknown Comments:CALL DR REGALADO FOR A FOLLOW UP APPOINTMENT. CALL DR REGALADO WITH ANY QUESTIONS OR CONCERNS OR GO TO THE EMERGENCY ROOM WITH ANY URGENT MATTERS. With:BRANDO REGALADO Address: [address] [place] [address] [address] [place] [address]- [phone] Business (1) When:Within 2 Week(s) Comments:Schedule appointment as soon as possible [facility] 12-09-2021 Evaluation + Plan note Diagnostic Tests Pending * Urine test (LAB) 04/26/21 Future Scheduled Tests Radiology* US Pelvis Non-OB W/Transvaginal 04/26/21 [facility] 12-09-2021 Evaluation + Plan note Future Scheduled Tests Radiology* US Pelvis Non-OB W/Transvaginal 04/26/21 [facility] 11-04-2021 Hospital Discharge instructions Patient Education 03/22/2021 06:29:59 Vaginal Delivery, Care After Vaginal Delivery, Care After Refer to this sheet in the next few weeks. These instructions provide you with information about caring for yourself after vaginal delivery. Your health care provider may also give you more specific instructions. Your treatment has been planned according to current medical practices, but problems sometimes occur. Call your health care provider if you have any problems or questions. What can I expect after the procedure? After vaginal delivery, it is common to have: Some bleeding from your vagina. Soreness in your abdomen, your vagina, and the area of skin between your vaginal opening and your anus (perineum). Pelvic cramps. Fatigue. Follow these instructions at home: Medicines Take nbem-ubr-fooqmgj and prescription medicines only as told by your health care provider. If you were prescribed an antibiotic medicine, take it as told by your health care provider. Do notstop taking the antibiotic until it is finished. Driving Do not drive or operate heavy machinery while taking prescription pain medicine. Do not drive for 24 hours if you received a sedative. Lifestyle Do not drink alcohol. This is especially important if you are or taking medicine to relieve pain. Do not use tobacco products, including cigarettes, chewing tobacco, or e- cigarettes. If you need help quitting, ask your health care provider. Eating and drinking Drink at least 8 eight-ounce glasses of water every day unless you are told not to by your health care provider. If you choose to breastfeed your baby, you may need to drink more water than this. Eat high-fiber foods every day. These foods may help prevent or relieve constipation. High-fiber foods include: ?Whole grain cereals and breads. ?Brown rice. ?Beans. ?Fresh fruits and vegetables. Activity Return to your normal activities as told by your health care provider. Ask your health care provider what activities are safe for you. Rest as much as possible. Try to rest or take a nap when your baby is sleeping. Do not lift anything that is heavier than your baby or 10 lb (4.5 kg) until your health care provider says that it is safe. Talk with your health care provider about when you can engage in sexual activity. This may depend on your: ?Risk of infection. ?Rate of healing. ?Comfort and desire to engage in sexual activity. Vaginal Care If you have an episiotomy or a vaginal tear, check the area every day for signs of infection. Checkfor: ?More redness, swelling, or pain. ?More fluid or blood. ?Warmth. ?Pus or a bad smell. Do not use tampons or douches until your health care provider says this is safe. Watch for any blood clots that may pass from your vagina. These may look like clumps of dark red, brown, or black discharge. General instructions Keep your perineum clean and dry as told by your health care provider. Wear loose, comfortable clothing. Wipe from front to back when you use the toilet. Ask your health care provider if you can shower or take a bath. If you had an episiotomy or a perineal tear during labor and delivery, your health care provider may tell you not to take baths for a certain length of time. Wear a bra that supports your breasts and fits you well. If possible, have someone help you with household activities and help care for your baby for at least a few days after you leave the hospital. Keep all follow-up visits for you and your baby as told by your health care provider. This is important. Contact a health care provider if: You have: ?Vaginal discharge that has a bad smell. ?Difficulty urinating. ?Pain when urinating. ?A sudden increase or decrease in the frequency of your bowel movements. ?More redness, swelling, or pain around your episiotomy or vaginal tear. ?More fluid or blood coming from your episiotomy or vaginal tear. ?Pus or a bad smell coming from your episiotomy or vaginal tear. ?A fever. ?A rash. ?Little or no interest in activities you used to enjoy. ?Questions about caring for yourself or your baby. Your episiotomy or vaginal tear feels warm to the touch. Your episiotomy or vaginal tear is or does not appear to be healing. Your breasts are painful, hard, or turn red. You feel unusually sad or worried. You feel nauseous or you vomit. You pass large blood clots from your vagina. If you pass a blood clot from your vagina, save it to show to your health care provider. Do not flush blood clots down the toilet without having your health care provider look at them. You urinate more than usual. You are dizzy or light-headed. You have not breastfed at all and you have not had a menstrual period for 12 weeks after delivery. You have stopped and you have not had a menstrual period for 12 weeks after you stopped . Get help right away if: You have: ?Pain that does not go away or does not get better with medicine. ?Chest pain. ?Difficulty breathing. ?Blurred vision or spots in your vision. ?Thoughts about hurting yourself or your baby. You develop pain in your abdomen or in one of your legs. You develop a severe headache. You faint. You bleed from your vagina so much that you fill two sanitary pads in one hour. This information is not intended to replace advice given to you by your health care provider. Make sure you discuss any questions you have with your health care provider. Document Released: 05/02/2001 Document Revised: 10/16/2016 Document Reviewed: 05/19/2016 [employer] 2019 [employer]. 03/22/2021 06:29:56 Care After Vaginal Delivery Care After Vaginal Delivery This sheet gives you information about how to care for yourself from the time you deliver your babyto up to 6 12 weeks after delivery ( period). Your health care provider may also give youmore specific instructions. If you have problems or questions, contact your health care provider. Follow these instructions at home: Vaginal bleeding It is normal to have vaginal bleeding (lochia) after delivery. Wear a sanitary pad for vaginal bleeding and discharge. ?During the first week after delivery, the amount and appearance of lochia is often similar to a menstrual period. ?Over the next few weeks, it will gradually decrease to a dry, yellow-brown discharge. ?For most women, lochia stops completely by 4 6 weeks after delivery. Vaginal bleeding can vary from woman to woman. Change your sanitary pads frequently. Watch for any changes in your flow, such as: ?A sudden increase in volume. ?A change in color. ?Large blood clots. If you pass a blood clot from your vagina, save it and call your health care provider to discuss. Do not flush blood clots down the toilet before talking with your health care provider. Do not use tampons or douches until your health care provider says this is safe. If you are not , your period should return 6 8 weeks after delivery. If you are feeding your child breast milk only (exclusive ), your period may not return until you stop . Perineal care Keep the area between the vagina and the anus (perineum) clean and dry as told by your health care provider. Use medicated pads and pain-relieving sprays and creams as directed. If you had a cut in the perineum (episiotomy) or a tear in the vagina, check the area for signs of infection until you are healed. Check for: ?More redness, swelling, or pain. ?Fluid or blood coming from the cut or tear. ?Warmth. ?Pus or a bad smell. You may be given a squirt bottle to use instead of wiping to clean the perineum area after you go to the bathroom. As you start healing, you may use the squirt bottle before wiping yourself. Make sure to wipe gently. To relieve pain caused by an episiotomy, a tear in the vagina, or swollen veins in the anus (hemorrhoids), try taking a warm sitz bath 2 3 times a day. A sitz bath is a warm water bath that is taken while you are sitting down. The water should only come up to your hips and should cover your buttocks. Breast care Within the first few days after delivery, your breasts may feel heavy, full, and uncomfortable (breast engorgement). Milk may also leak from your breasts. Your health care provider can suggest ways to help relieve the discomfort. Breast engorgement should go away within a few days. If you are : ?Wear a bra that supports your breasts and fits you well. ?Keep your nipples clean and dry. Apply creams and ointments as told by your health care provider. ?You may need to use breast pads to absorb milk that leaks from your breasts. ?You may have uterine contractions every time you breastfeed for up to several weeks after delivery. Uterine contractions help your uterus return to its normal size. ?If you have any problems with , work with your health care provider or independent crop consultant. If you are not : ?Avoid touching your breasts a lot. Doing this can make your breasts produce more milk. ?Wear a good-fitting bra and use cold packs to help with swelling. ?Do not squeeze out (express) milk. This causes you to make more milk. Intimacy and sexuality Ask your health care provider when you can engage in sexual activity. This may depend on: ?Your risk of infection. ?How fast you are healing. ?Your comfort and desire to engage in sexual activity. You are able to get after delivery, even if you have not had your period. If desired, talkwith your health care provider about methods of control (contraception). Medicines Take kbgv-tir-ieaotwu and prescription medicines only as told by your health care provider. If you were prescribed an antibiotic medicine, take it as told by your health care provider. Do notstop taking the antibiotic even if you start to feel better. Activity Gradually return to your normal activities as told by your health care provider. Ask your health care provider what activities are safe for you. Rest as much as possible. Try to rest or take a nap while your baby is sleeping. Eating and drinking Drink enough fluid to keep your urine pale yellow. Eat high-fiber foods every day. These may help prevent or relieve constipation. High-fiber foods include: ?Whole grain cereals and breads. ?Brown rice. ?Beans. ?Fresh fruits and vegetables. Do not try to lose weight quickly by cutting back on calories. Take your vitamins until your checkup or until your health care provider tells you it is okay to stop. Lifestyle Do not use any products that contain nicotine or tobacco, such as cigarettes and e-cigarettes. If you need help quitting, ask your health care provider. Do not drink alcohol, especially if you are . General instructions Keep all follow-up visits for you and your baby as told by your health care provider. Most women visit their health care provider for a checkup within the first 3 6 weeks after delivery. Contact a health care provider if: You feel unable to cope with the changes that your child brings to your life, and these feelings donot go away. You feel unusually sad or worried. Your breasts become red, painful, or hard. You have a fever. You have trouble holding urine or keeping urine from leaking. You have little or no interest in activities you used to enjoy. You have not breastfed at all and you have not had a menstrual period for 12 weeks after delivery. You have stopped and you have not had a menstrual period for 12 weeks after you stopped . You have questions about caring for yourself or your baby. You pass a blood clot from your vagina. Get help right away if: You have chest pain. You have difficulty breathing. You have sudden, severe leg pain. You have severe pain or cramping in your lower abdomen. You bleed from your vagina so much that you fill more than one sanitary pad in one hour. Bleeding should not be heavier than your heaviest period. You develop a severe headache. You faint. You have blurred vision or spots in your vision. You have bad-smelling vaginal discharge. You have thoughts about hurting yourself or your baby. If you ever feel like you may hurt yourself or others, or have thoughts about taking your own life,get help right away. You can go to the nearest emergency department or call: Your local emergency services (911 in the [place] A suicide crisis helpline, such as the National Suicide Prevention Lifeline at . Thisis open 24 hours a day. Summary The period of time right after you deliver your up to 6 12 weeks after delivery is called the period. Gradually return to your normal activities as told by your health care provider. Keep all follow-up visits for you and your baby as told by your health care provider. This information is not intended to replace advice given to you by your health care provider. Make sure you discuss any questions you have with your health care provider. Document Released: 03/01/2008 Document Revised: 05/08/2018 Document Reviewed: 02/16/2018 [employer] Education 2020 [employer]. 03/22/2021 06:29:54 Care of a Perineal Tear Care of a Perineal Tear A perineal tear is a cut or tear (laceration) in the tissue between the opening of the vagina and the anus (perineum). Some women develop a perineal tear during a vaginal . This can happen as the baby emerges from the canal and the perineum is stretched. There are four degrees of perineal tears based on how deep and long the laceration is: First degree. This involves a shallow tear at the edge of the vaginal opening that extends slightlyinto the perineal skin. Second degree. This involves tearing described in first degree perineal tear, and an additional deeper tear of the vaginal opening and perineal tissues. It may also include tearing of a muscle just under the perineal skin. Third degree. This involves tearing described in first and second degree perineal tears, with the addition that tearing in the third degree extends into the muscle of the anus (anal sphincter). Fourth degree. This involves all levels of tears described in first, second, and third degree perineal tears, with the tear in the fourth degree extending into the rectum. First and second degree perineal tears may or may not be stitched closed, depending on their location and appearance. Third and fourth degree perineal tears are stitched closed immediately after the baby s . What are the risks? Depending on the type of perineal tear you have, you may be at risk for: Bleeding. Developing a collection of blood in the perineal tear area (hematoma). Pain. This may include pain when you urinate, or pain when you have a bowel movement. Infection at the site of the tear. Fever. Trouble controlling your urination or bowels (incontinence). Painful sex. How to care for a perineal tear Wound care Take a sitz bath as told by your health care provider. A sitz bath is a warm water bath that is taken while you are sitting down. The water should only come up to your hips and should cover your buttocks. This can speed up healing. 1.Partially fill a bathtub with warm water. You will only need the water to be deep enough to coveryour hips and buttocks when you are sitting in it. 2.If your health care provider told you to put medicine in the water, follow the directions exactlyas told. 3.Sit in the water and open the tub drain a little. 4.Turn on the warm water again to keep the tub at the correct level. Keep the water running constantly. 5.Soak in the water for 15 20 minutes or as told by your health care provider. 6.After the sitz bath, pat the affected area dry first. Do not rub it. 7.Be careful when you stand up after the sitz bath because you may feel dizzy. Wash your hands before and after applying medicine to the area. Wear a sanitary pad as told by your health care provider. Change the pad as often as told by your health care provider. Leave stitches (sutures), skin glue, or adhesive strips in place. These skin closures may need to stay in place for 2 weeks or longer. If adhesive strip edges start to loosen and curl up, you may trim the loose edges. Do not remove adhesive strips completely unless your health care provider tells you to do that. Check your wound every day for signs of infection. Check for: ?Redness, swelling, or pain. ?Fluid or blood. ?Warmth. ?Pus or a bad smell. Managing pain If directed, put ice on the painful area: ?Put ice in a plastic bag. ?Place a towel between your skin and the bag. ?Leave the ice on for 20 minutes, 2 3 times a day. Apply a numbing spray to the perineal tear site as told by your health care provider. This may helpwith discomfort. Take and apply bqpd-xqq-fenlbyq and prescription medicines only as told by your health care provider. If told, put about 3 witch leida-containing hemorrhoid treatment pads on top of your sanitary pad. The witch leida in the hemorrhoid pads helps with swelling and discomfort. Sit on an inflatable ring or pillow. This may provide comfort. General instructions Squeeze warm water on your perineum after urinating. This should be done from front to back with a squeeze bottle. Pat the area to dry it. Do not have sex, use tampons, or place anything in your vagina for at least 6 weeks or as told by your health care provider. Keep all follow-up visits as told by your health care provider. These include any visits. This is important. Contact a health care provider if: Your pain is not relieved with medicines. You have painful urination. You have redness, swelling, or pain around your tear. You have fluid or blood coming from your tear. Your tear feels warm to the touch. You have pus or a bad smell coming from your tear. You have a fever. Get help right away if: Your tear opens. You cannot urinate. You have an increase in bleeding. You have severe pain. Summary A perineal tear is a cut or tear (laceration) in the tissue between the opening of the vagina and the anus (perineum). There are four degrees of perineal tears based on how deep and long the laceration is. First and second-degree perineal tears may or may not be stitched closed, depending on their location and appearance. Third and fourth- degree perineal tears are stitched closed immediately after thebaby s . Follow your health care provider's instructions for caring for your perineal tear. Know how to manage pain and how to care for your wound. Know when to call your health care provider and when to seekimmediate emergency care. This information is not intended to replace advice given to you by your health care provider. Make sure you discuss any questions you have with your health care provider. Document Released: 09/19/2014 Document Revised: 04/17/2018 Document Reviewed: 06/09/2017 [employer] Patient Education 2020 [employer]. 03/22/2021 06:29:53 Anemia Anemia Anemia is a condition in which you do not have enough red blood cells or hemoglobin. Hemoglobin is a substance in red blood cells that carries oxygen. When you do not have enough red blood cells or hemoglobin (are anemic), your body cannot get enough oxygen and your organs may not work properly. Asa result, you may feel very tired or have other problems. What are the causes? Common causes of anemia include: Excessive bleeding. Anemia can be caused by excessive bleeding inside or outside the body, including bleeding from the intestine or from periods in women. Poor nutrition. Long-lasting (chronic) kidney, thyroid, and liver disease. Bone marrow disorders. Cancer and treatments for cancer. HIV (human immunodeficiency virus) and AIDS (acquired immunodeficiency syndrome). Treatments for HIV and AIDS. Spleen problems. Blood disorders. Infections, medicines, and autoimmune disorders that destroy red blood cells. What are the signs or symptoms? Symptoms of this condition include: Minor weakness. Dizziness. Headache. Feeling heartbeats that are irregular or faster than normal (palpitations). Shortness of breath, especially with exercise. Paleness. Cold sensitivity. Indigestion. Nausea. Difficulty sleeping. Difficulty concentrating. Symptoms may occur suddenly or develop slowly. If your anemia is mild, you may not have symptoms. How is this diagnosed? This condition is diagnosed based on: Blood tests. Your medical history. A physical exam. Bone marrow biopsy. Your health care provider may also check your stool (feces) for blood and may do additional testingto look for the cause of your bleeding. You may also have other tests, including: Imaging tests, such as a CT scan or MRI. Endoscopy. Colonoscopy. How is this treated? Treatment for this condition depends on the cause. If you continue to lose a lot of blood, you may need to be treated at a hospital. Treatment may include: Taking supplements of iron, vitamin B12, or folic acid. Taking a hormone medicine (erythropoietin) that can help to stimulate red blood cell growth. Having a blood transfusion. This may be needed if you lose a lot of blood. Making changes to your diet. Having surgery to remove your spleen. Follow these instructions at home: Take bkro-nkm-wxxjous and prescription medicines only as told by your health care provider. Take supplements only as told by your health care provider. Follow any diet instructions that you were given. Keep all follow-up visits as told by your health care provider. This is important. Contact a health care provider if: You develop new bleeding anywhere in the body. Get help right away if: You are very weak. You are short of breath. You have pain in your abdomen or chest. You are dizzy or feel faint. You have trouble concentrating. You have bloody or black, tarry stools. You vomit repeatedly or you vomit up blood. Summary Anemia is a condition in which you do not have enough red blood cells or enough of a substance in your red blood cells that carries oxygen (hemoglobin). Symptoms may occur suddenly or develop slowly. If your anemia is mild, you may not have symptoms. This condition is diagnosed with blood tests as well as a medical history and physical exam. Other tests may be needed. Treatment for this condition depends on the cause of the anemia. This information is not intended to replace advice given to you by your health care provider. Make sure you discuss any questions you have with your health care provider. Document Released: 06/12/2005 Document Revised: 04/17/2018 Document Reviewed: 06/06/2017 [employer] Education 2020 [employer]. 03/22/2021 06:29:52 7b- Depression and Blues (02/2020) (CUSTOM) Barbara Depression and Blues All mothers are at risk of developing depression or the blues. These mood changes can occur right after giving , or they may occur many months after giving . blues or depression can be mild or severe. Additionally, depression can goaway rather quickly, or it can be a long-term condition. CAUSES Raised hormone levels and the rapid drop in those levels are thought to be a main cause of depression and blues. A number of hormones change during and after . Estrogenand progesterone usually decrease right after delivery. The levels of thyroid hormone and various cortisol steroids also rapidly drop. Other factors that play a role in these mood changes include major life events and genetics. RISK FACTORS If you have any of the following risks for blues or depression, know what symptoms to watch out for during the period. Risk factors that may increase the likelihood of getting blues or depression include: Having a personal or family history of depression. Having depression while being . Having premenstrual mood issues or mood issues related to oral contraceptives. Having a lot of life stress. Having marital conflict. Lacking a social support network. Having health problems, such as diabetes. SIGNS AND SYMPTOMS Symptoms of blues include: Brief changes in mood, such as going from extreme happiness to sadness. Decreased concentration. Difficulty sleeping. Crying spells, tearfulness. Irritability. Anxiety. Symptoms of depression typically begin within the first month after giving . These symptoms include: Difficulty sleeping or excessive sleepiness. Marked weight loss. Agitation. Feelings of worthlessness. Lack of interest in activity or food. psychosis is a very serious condition and can be dangerous. Fortunately, it is rare. Displaying any of the following symptoms is cause for immediate medical attention. Symptoms of psychosis include: Hallucinations and delusions. Bizarre or disorganized behavior. Confusion or disorientation. DIAGNOSIS A diagnosis is made by an evaluation of your symptoms. There are no medical or lab tests that lead to a diagnosis, but there are various questionnaires that a health care provider may use to identifythose with blues, depression, or psychosis. Often, a screening tool called the [place] Depression Scale is used to diagnose depression in the period. TREATMENT blues usually goes away on its own in 1 2 weeks. Social support is often all that is needed. You will be encouraged to get adequate sleep and rest. Occasionally, you may be given medicinesto help you sleep. depression requires treatment because it can last several months or longer if it is not treated. Treatment may include individual or group therapy, medicine, or both to address any social,physiological, and psychological factors that may play a role in the depression. Regular exercise, a healthy diet, rest, and social support may also be strongly recommended. psychosis is more serious and needs treatment right away. Hospitalization is often needed. HOME CARE INSTRUCTIONS Get as much rest as you can. Exercise regularly. Some women find yoga and walking to be beneficial. Eat a balanced and nourishing diet. Do little things that you enjoy. Have a cup of tea, take a bubble bath, read your favorite magazine, or listen to your favorite music. Avoid alcohol. Ask for help with programs director, cooking, grocery shopping, or running errands as needed. Do nottry to do everything. Talk to people close to you about how you are feeling. Get support from your partner, family members, and friends. Try to stay positive in how you think. Think about the things you are grateful for. Do not spend a lot of time alone. Only take soki-hay-jjrizxe or prescription medicine as directed by your health care provider. Keep all your appointments. Let your health care provider know if you have any concerns. SEEK MEDICAL CARE IF: You are having a reaction to or problems with your medicine. SEEK IMMEDIATE MEDICAL CARE IF: You have suicidal feelings. You think you may harm yourself or someone else. MAKE SURE YOU: Understand these instructions. Will watch your condition. Will get help right away if you are not doing well or get worse. Resource: [facility] Patient Information 2015 [employer]. This information is not intended to replace advicegiven to you by your health care provider. Make sure you discuss any questions you have with your health care provider. Follow Up Care 03/20/2021 16:31:03 With:BRANDO REGALADO DO Address: [phone] When:05/03/2021 Comments: visit [facility] 11-02-2021 Evaluation + Plan noteExtracted from: Title:Clinical Document Author:BRANDO REGALADO DO Date:03/20/21 [place] ADMISSION HISTORY A ND PHYSICIAL History and Physical/Admit Note: S: Patient is a 25 year old AB1 female at 38.0 wks GA with EDC of 04/03/2021 confirmed by first trimester ultrasound who present to [facility] with the complaint of contractions. Pt had an US showing growth of 37 weeks at 35 weeks. Pt scheduled for a but decided against it. complications include: Previous x 1 Maternal medications include: PNV, Vistaril, Diflucan, Benadryl, Colace Bloodwork: Blood type: A+; Rubella status: immune; HBsAG status: negative; HIV status: negative; GBS status: positive O: Vitals Signs(Last 24 hrs)__Last Charted Minimum Maximum Heart RateH 101(MAR 20 19:20)91(MAR 20 17:47)H 107(MAR 20 19:15) Resp Rate18(MAR 20 17:47)18(MAR 20 16:50)18(MAR 20 16:50) AZU741(MAR 20 19:20)109(MAR 20 19:20)127(MAR 20 19:08) DBPC 49(MAR 20 19:20)C 49(MAR 20 19:20)72(MAR 20 19:08) Gen: alert, awake, in mild laboring distress Lungs: clear to auscultation bilaterally, equal breath sounds, no wheezes or crackles. Heart: RRR without murmur Abd: gravid uterus : cervical exam: /-3 Membranes: intact FHTs: category 1 Stacy: contractions every 4 to 7 minutes Ext: no edema WBC: 14.6 10^3/mcL High (03/20/21 17:02:00) RBC: 3.89 10^6/mcL Low (03/20/21:02:00) Hgb: 11.3 G/dL Low (03/20/21 17:02:00) Hct: 33.4 % Low (03/20/21 17:02:00) MCV: 85.9 fL (03/20/21:02:00) MCH: 29 pg (03/20/21:02:00) MCHC: 33.8 G/dL (03/20/21:02:00) RDW: 13.3 % (03/20/21:02:00) Platelet: 298 10^3/mcL (03/20/21:02:00) MPV: 7.4 fL (03/20/21:02:00) Neutrophil %: 82.3 % High (03/20/21 17:02:00) Lymphocyte %: 9.6 % Low (03/20/21:02:00) Monocyte %: 7.4 % (11/02/21 17:02:00) Eosinophil %: 0.4 % (03/20/21 17:02:00) Basophil %: 0.3 % (03/20/21 17:02:00) Neutrophil, Absolute: 12 10^3/mcL High (03/20/21 17:02:00) Lymphocyte, Absolute: 1.4 10^3/mcL (03/20/21 17:02:00) Monocyte, Absolute: 1.1 10^3/mcL High (03/20/21 17:02:00) Eosinophil, Absolute: 0.1 10^3/mcL (03/20/21 17:02:00) Basophil, Absolute: 0 10^3/mcL (03/20/21 17:02:00) Medication List Active Medications Ordered bupivacaine-fentanyl 100 mL: 11 mL/hr, Epidural. carboprost: 250 mcg, 1 mL, Intramuscular, Once, PRN: Other (see order comments). citric acid-sodium citrate: 30 mL, Oral, AsDirected, PRN: Gastric Upset. Lactated Ringers Infusion: 500 mL, IV Bolus, AsDirected, PRN: Other (see order comments). Lactated Ringers Infusion 1,000 mL: 125 mL/hr, Intravenous. lidocaine: 20 mg, 2 mL, Perineum, AsDirected, PRN: to perineal sutures. methylergonovine: 0.2 mg, 1 mL, Intramuscular, Once, PRN: Other (see order comments). miSOPROStol: 1,000 mcg, 5 tab(s), Rectal, Once, PRN: Other (see order comments). naloxone: 0.1 mg, 0.25 mL, IV Push, AsDirected, PRN: Control symptoms. naloxone: 0.4 mg, 1 mL, IV Push, AsDirected, PRN: Control symptoms. ondansetron: 4 mg, 2 mL, IV Push, q4h, PRN: Nausea. ondansetron: 4 mg, 2 mL, IV Push, q4h, PRN: Nausea/Vomiting. oxytocin: 20 unit(s), 2 mL, Intramuscular, Once, PRN: Other (see order comments). oxytocin 20 unit(s) + Lactated Ringers Infusion 1,000 mL: 999 mL/hr, Intravenous. terbutaline: 0.25 mg, 0.25 mL, Subcutaneous, AsDirected, PRN: Other (see order comments). vancomycin: 1 gram(s), 20 mL, 270 mL/hr, IV Piggyback, q8h. Documented albuterol: 1 puff(s), Inhalation, q4h, PRN: as needed for wheezing, 18 gram(s), 0 Refill(s). ferrous sulfate: 325 mg, 1 tab(s), Oral, BIDM, Take with food., 60 tab(s), 3 Refill(s). multivitamin, : Oral, qDay, 0 Refill(s). Medications Inactivated in the Last 72 Hours bupivacaine-fentanyl: Miscellaneous, Once. docusate: 100 mg, 1 cap(s), Oral, BID, 0 Refill(s). Sodium Chloride 0.9% intravenous solution: Miscellaneous, Once. vancomycin: 1 gram(s), IV Piggyback, q8h. vancomycin: Miscellaneous, Once. vancomycin: 1,750 mg, 35 mL, 306 mL/hr, IV Piggyback, Once. vancomycin: 1,750 mg, IV Piggyback, q8hr. A: 1. 25 yo Ab1 female at 38.0 wks GA in active labor 2. GBS positive P: 1. Admit to L&D 2. Continuous external monitoring 3. IV placement 4. Expectant management 5. Anesthesia consult . 6. GBS protocol with: Vancomycin 7. For TOLAC. Long discussion with patient and her re R/B/A to vaginal delivery with suspected LGA baby. Pt also refused 1hr GTT but reports self monitoring with fasting blood sugars in the 70's and 2hr PP's in the 90's. Stated that she monitored for three weeks. Discussed US report showing AC in the 97th percentile. Discussed the nature of shoulder dystocia and risks and concerns associated with this. Pt feels that US's are often not accurate at term. Discussed range of error associated with US's at term. Explained that the baby could be smaller but could also be bigger. Pt states that her was 10 pounds at but was his mother's second vaginal delivery. Pt is also concerned that she pushed for 4 hours with her first and did that she does not want to do that this time. I explained to the patient that if there is no progress after the first hour of pushing that I would recommend RCS. Pt is agreeable to that. [facility] Barbara Chang 06-19-[birth year]21 History of Present illness Narrative* ThomasLaurence perez, DO - 11/04/2020 9:40 PM EDT Images from the original note were not included. Department of Obstetrics and Gynecology Labor and Delivery Triage Note CHIEF COMPLAINT: pelvic pain, leaking fluid HISTORY OF PRESENT ILLNESS: The patient is a 25 y.o. 18w4d. OB History 3 Para 1 Term 1 AB 1 Living 1 SAB 1 TAB Ectopic Molar Multiple Live Births 1 Patient presents with a chief complaint as above. States she has had intermittent sharp pains in her vagina since last night. The pain is worse when she urinates. Also states she notices that her underpants are always wet for the past 2 days. She does admit to intercourse a couple days ago. She wasrecently treated for a BV infection. She denies hematuria. Denies DFM/VB/CTX Estimated Due Date: Estimated Date of Delivery: 04/03/21 PAST MEDICAL HISTORY: Past Medical History: Diagnosis Date Anemia Endometriosis Hypoglycemia Interstitial cystitis PAST SURGICAL HISTORY: Past Surgical History: Procedure Laterality Date CHOLECYSTECTOMY, LAPAROSCOPIC N/A LAPAROSCOPY SOCIAL HISTORY: reports that she has never smoked. She has never used smokeless tobacco. She reports that she does not drink alcohol and does not use drugs. MEDICATIONS: Prior to Admission medications Medication Sig Start Date End Date Taking? Authorizing Provider Vit-Fe Fumarate-FA ( VITAMINS PO) Take by mouth Yes Historical Provider, acetaminophen (TYLENOL) 325 MG tablet Take 650 mg by mouth every 6 hours as needed for Pain Historical Provider, CARE: Complicated by: hx CD REVIEW OF SYSTEMS: Pertinent items are noted in HPI. APPEARANCE: Pain: no PHYSICAL EXAM: Vital Signs: VS wnl-reviewed/Respirations normal effort Vitals: 11/04/20 2045 BP: 120/62 Pulse: 78 Resp: 18 Temp: 98.3 F (36.8 C) TempSrc: Oral Abdomen: soft, NT, ND, no rebound/guarding Uterus: gravid/non-tender LE Edema: trace Speculum Exam: no pooling of fluid seen, Nitrizine test is negative, Ferning test is negative, wet prep results: no pathogens heart rate: 150 bpm Cervix: C/t/h Contraction frequency: none Membranes: Intact RESULTS: NST: N/A GENERAL LABS: No results found for this or any previous visit (from the past 24 hour(s)). TRIAGE COURSE: Pt very anxious due to recent miscarriage in last . Very comfortable appearing. Cervix closed and wet prep negative. Abdominal exam benign. Will obtain UA. Provided BSUS for reassurance. Normal fluid and lots of movement. Anterior placenta. UA negative. Will discharge home with terazol cream given yeast on UA. IMPRESSION: Yeast infection DISCUSSED WITH [facility] PROVIDER: Dr. Lehman DISPOSITION: Discharge to Home Associated attestation - Robert Venegas MD - 11/04/2020 10:29 PM EDT I reviewed and agree with the care provided by the resident/CNM during the visit including the patient's medical history, the resident's findings in the physical exam, patient's diagnosis and treatment plan. documented in this [facility] Work Phone: 1(582) 264-209906-19-2021 Hospital Discharge instructions* Instructions* Laurence Desai DO - 11/04/2020 Follow up appointment with your doctor/hot oiler - Keep next scheduled appointment Activity - Normal Activity Call your doctor/hot oiler if you have: - leaking fluid - vaginal bleeding - regular contractions: More than 6 contractions in one hour - decreased movement - worsening abdominal (belly) pain - headache, blurry vision, increased swelling, upper abdominal pain If you are going home with contractions that are uncomfortable/painful- we recommend these coping strategies: rhythmic breathing, hydrotherapy, imagery or visualization, gentle massage, walking and changing your position. Treatment Verification: Selene Larkin was assessed on Labor and Delivery for a relatedvisit on 11/04/20. Laurence Desai DO [facility] documented in this [facility] Work Phone: [phone]) 811-692810-17-2020 Evaluation + Plan note Future Scheduled Tests Radiology* US Pelvis Non-OB W/Transvaginal 03/04/20 [facility] 05-25-2020 Evaluation + Plan note Future Appointments Appointment Date:10/09/2022 09:00:00 AM Scheduled Provider: Location:[facility] Appointment Type:US OB > 14 wks Appointment Date:10/10/2022 10:00:00 AM Scheduled Provider:LORRAINE MO Location:[facility] Appointment Type:WH OV OB Routine Follow Up Appointment Date:04/07/2023 03:40:00 PM Scheduled Provider:LUIS REESE APRN-HOWARD Location:UROLOGY Appointment Type:URO OV 20 min Future Scheduled Tests Radiology* US OB Limited/Transvaginal 09/12/22 * US OB > 14 weeks 10/09/22 * US Obstetrical 07/20/22 * US Transvaginal OB 07/25/22 [facility] Evaluation + Plan note Future Appointments [facility] Evaluation + Plan note Future Appointments Appointment Date:04/07/2023 03:40:00 PM Scheduled Provider:LUIS REESE APRN-HOWARD Location:UROLOGY Appointment Type:URO OV 20 min Diagnostic Tests Pending * Urine Culture 10/19/22 Future Scheduled Tests Radiology* US OB Limited/Transvaginal 09/12/22 * US Obstetrical 07/20/22 * US Transvaginal OB 07/25/22 [facility] Evaluation + Plan note Future Appointments Appointment Date:04/07/2023 03:40:00 PM Scheduled Provider:LUIS REESE APRN-HOWARD Location:UROLOGY Appointment Type:URO OV 20 min Future Scheduled Tests Radiology* US OB Limited/Transvaginal 09/12/22 * US OB > 14 weeks 11/15/22 * US Obstetrical 07/20/22 * US Transvaginal OB 07/25/22 [facility] Evaluation + Plan note Future Appointments Appointment Date:04/07/2023 03:40:00 PM Scheduled Provider:LUIS REESE Location:UROLOGY Appointment Type:URO OV 20 min Diagnostic Tests Pending * Urinalysis 01/12/23 * Urine Culture 01/12/23 * Chlamydia trachomatis PCR 01/12/23 * N. gonorrhoeae PCR 01/12/23 Future Scheduled Tests Radiology* US OB Limited/Transvaginal 09/12/22 * OB > 14 weeks 11/15/22 * US Obstetrical 07/20/22 * Transvaginal OB 07/25/22 [facility] Evaluation note* Diagnosis Vaginal yeast infection Candidiasis of vulva and vagina Pelvic pain affecting in second trimester, antepartum 18 weeks gestation of state, incidental documented in this encounter [facility] Work Phone: Evaluation noteNo assessment information available [facility] Work Phone: evaluation note* Diagnosis Threatened miscarriage in early - Primary Threatened , unspecified as to episode of care Subchorionic hematoma in first trimester, single or unspecified fetus Bacteria in urine Other nonspecific finding on examination of urine documented in this encounter [employer] Phone: evaluation note* Diagnosis Threatened , antepartum- Primary documented in this encounter [employer] Phone: evaluation note* Diagnosis Threatened miscarriage- Primary Threatened , unspecified as to episode of care documented in this encounter [employer] Phone: evalpsvoud note* Diagnosis Threatened miscarriage- Primary Threatened , unspecified as to episode of care [facility] Diagnosis Fall, initial encounter- Primary 25 weeks gestation of [facility]* Diagnosis Vaginal bleeding- Primary Other specified noninflammatory disorder of vagina Fatigue, unspecified type documented in this encounter [place] [facility] Narrative No data available for this section [facility] Hospital Discharge instructions* Instructions* Yolande Juares MD - 12/25/2020 Follow up appointment with your doctor/hot oiler - Keep next scheduled appointment Activity - Normal Activity Call your doctor/hot oiler if you have: - leaking fluid - vaginal bleeding - regular contractions: More than 6 contractions in one hour - decreased movement - worsening abdominal (belly) pain - headache, blurry vision, increased swelling, upper abdominal pain If you are going home with contractions that are uncomfortable/painful- we recommend these coping strategies: rhythmic breathing, hydrotherapy, imagery or visualization, gentle massage, walking and changing your position. Treatment Verification: Selene Larkin was assessed on Labor and Delivery for a relatedvisit on 12/25/20. Yolande Juares MD [facility] documented in this [facility] Work Phone: Hospital Discharge instructions No data available for this section [facility]* Attachments The following attachments cannot be sent through Care Everywhere. * Miscarriage: Threatened ([place]jiboutian) * : Abdominal Pain ([place]jiboutian) [facility]: Hospital Discharge instructions* Attachments The following attachments cannot be sent through Care Everywhere. * Bleeding in Early Discharge Instructions (Djiboutian) documented in this [facility] Discharge instructions* Attachments The following attachments cannot be sent through Care Everywhere. * Vaginal Bleeding in Late ED (Djiboutian) documented in this [facility] Discharge instructions Additional Instructions [facility]: Progress note No data available for this section [facility] Reason for referral (narrative)* Consultation (Routine) - Pending Review Specialty Diagnoses / Procedures Referred By Alexander fermin Referred To Contact Obstetrics and Gynecology Diagnoses Threatened miscarriage Procedures MT OFFICE/OUTPATIENT NEW HIGH MDM 60-74 MINUTES Mahad Smith DO [address] [place] [address] [facility] [address] [place] [address] Referral ID Status Reason Start Date Expiration Date Visits Requested Visits Authorized [id number] Pending Review Specialty Services Required 09/24/2022 09/24/2023 1 1 [facility] for referral (narrative)No reason for referral information [facility] Work Phone: Summary Purpose Family History No Family History Records FoundNo Family History Records FoundNo Family History Records FoundNo Family History Records FoundNo Family History Records FoundNo Family History Records FoundNo Family History Records FoundNo Family History Records FoundNo Family History Records FoundNo Family History Records FoundNo Family History Records FoundNo Family History Records FoundNo Family History Records Found No data available for this section No data available for this section No data available for this section No data available for this section No data available for this section No data available for this section No Family History Records FoundNo Family History Records Found No data available for this section No data available for this section No Family History Records FoundNo Family History Records FoundNo Family History Records FoundNo Family History Records FoundNo Family History Records Found Advance Directives Documents on File Type Date Recorded Patient Examining Officer Expl anation Advance Directives and Living Will Power of Outsole Molder Latest Code Status on File Code Status Date Activated Date Inactivated Comments Full Code 08/08/2016 9:24 AM 08/08/2016 3:15 PM Documents on File Type Date Recorded Patient Examining Officer Expl anation ACP-Advance Directive ACP-Power of Outsole Molder Latest Code Status on File Code Status Date Activated Date Inactivated Comments Full Code 11/24/2020 6:45 PM 11/24/2020 9:22 PM Full Code 08/08/2016 9:24 AM 08/08/2016 3:15 PM Advance Directive Response Recorded Date/ Time Advance Directives No September 27 1:38pm Organ Donor No September 27, 2020 1 :38pm Tissue Donor No September 27, 2020 1 :38pm Advance Directive Response Recorded Date/ Time Living Will No July 16, 024 8:25am Power of Outsole Molder No July 16, 2023 8:25am Advance Directive Response Recorded Date/ Time Do you have a Healthcare Power of Outsole Molder? No January 05, 2025 3:13pm Discharge Instructions * Instructions* Gurvinder Gonzalez MD - 12/21/2019 Most people with respiratory infections like colds, the flu, and Coronavirus Disease (COVID-19) will have mild illness and can get better with appropriate home care and without the need to see a medical provider. People who are elderly, , or have a weak immune system, or other medical problem are at higher risk of more serious illness or complications. It is recommended that they carefully monitor their symptoms closely and seek medical care early. Treatment There is no specific treatment for most viruses, including those that cause the common cold and those that cause COVID-19. Sometimes there is treatment for viruses that cause influenza if given soon after the onset of symptoms. Antibiotics treat infections caused by bacteria, but they do not work against viruses. Most people recover on their own from these viruses, including COVID-19. Here are steps that you can take to help you get better: Rest Drink plenty of fluids Take unac-mok-ykiwkbc cold and flu medications to reduce fever and pain. Follow the instructions onthe package, unless your doctor gave you specific instructions. Note that these medicines do not 'cure' the illness and do not stop you from spreading germs. When to Seek Medical Care You should seek medical care if you are not getting better within a week, or if your symptoms get worse. It is best to call your doctor ahead of time to discuss your symptoms, if possible. Some providers offer telemedicine services that can assist as well. This may allow you to receive the advice you need by phone. By avoiding a visit to a healthcare facility, you protect yourself from getting a n ew infection and protect others from catching an infection from you. If you do visit a healthcare facility, put on a mask to protect other patients and staff. It is recommended that you seek medical care and return immediately to the Emergency Department forany serious symptoms, such as: Return immediately for any difficulty breathing, confusion, dizziness or passing out, vomiting, chest pain, high fevers, weakness, or any other new or concerning symptoms. People with potentially life-threatening symptoms should call 911. If possible, put on a facemask before emergency medical services arrive. What should I do if home isolation has been recommended? The following instructions are provided to assist you to safely care for yourself or others who areinfected or potentially infected with COVID-19. These instructions are also available at: https://www.cdc.gov/coronavirus/2019-ncov/hcp/tbgsihpm-jqlgdvv-ptwvvb.html It has been determined that you do not need to be hospitalized at this time, and can safely be isolated at home. You should follow the prevention steps below until a health care provider or local health department says you can return to your normal activities. Stay home except to get medical care You should restrict activities outside your home, except for getting medical care. Under no circumstance should you go to work, school, or public areas. Avoid using public transportation, ride sharing, or taxis. Separate yourself from other people and animals in your home People: As much as possible, you should stay in a specific room and away from other people in your home. Also, you should use a separate bathroom, if available. Animals: You should restrict contact with pets and other animals while you are sick with COVID-19, just like you would around other people. Although there have not been reports of pets or other animals becoming sick with COVID-19, it is still recommended that people with COVID-19 limit contact withanimals until more information is known about the virus. When possible, have another member of yourhousehold care for your animals while you are sick. If you must care for your pet or be around animals while you are sick, wash your hands before and after you interact with pets and wear a facemask. Call ahead before visiting your doctor If you have a medical appointment, call the health care provider prior to your appointment and tellthem that you have or may have COVID-19. This will help the health care provider's office take steps to keep other people from getting infected or exposed. Ask your health care provider to call the local or state health department. Persons who are placed under active monitoring or self- monitoring should follow instructions provided by their local health department or occupational health professionals, as appropriate. If you have a medical emergency and need to call 911, notify the dispatch personnel that you have, or are being evaluated for COVID-19. If possible, put on a facemask before [facility] arrive. Take care of your mental health You might be feeling anxious, afraid, lonely or uncertain. The following link has a guide with a list of helpful behavioral health resources and a few tips for taking care of your emotional health while you are quarantined: https://[employer].[facility].gov/system/files/hap33-4114.pdf Wear a face mask You should wear a facemask when you are around other people (for example, sharing a room or vehicle) or pets, and before you enter a health care provider's office. If you are not able to wear a facemask (for example, because it causes trouble breathing), then people who live with you should not stay in the same room with you, or they should wear a facemask if they enter your room. Cover your coughs and sneezes Cover your mouth and nose with a tissue when you cough or sneeze. Throw used tissues in a lined trash can. Clean your hands often Wash your hands often with soap and water for at least 20 seconds or clean your hands with an alcohol-based hand glass driller that contains 60 to 95% alcohol, covering all surfaces of your hands and rubbing them together until they feel dry. Soap and water should be used preferentially if your hands are visibly dirty. Avoid touching your eyes, nose, and mouth with unwashed hands. Avoid touching your face Viruses that affect the respiratory system enter the body through mucous membranes which are found in the eyes, nose, and mouth. It only takes one touch for germs on your fingers to enter your body through your nostrils, eyes, or mouth. In addition to hand hygiene, this is an important way to help prevent transmission of infections. Clean all high-touch surfaces every day High-touch surfaces include counters, tabletops, doorknobs, bathroom fixtures, toilets, phones, keyboards, tablets, and bedside tables. Also, clean any surfaces that may have blood, stool, or body fluids on them. Use a household cleaning spray or wipe, according to the label instructions. Labels contain instructions for safe and effective use of the cleaning product including precautions you should take when applying the product, such as wearing gloves and making sure you have good ventilation while using the product. Avoid sharing personal household items You should not share dishes, drinking glasses, cups, eating utensils, towels or bedding with other people or pets in your home. After using these items, they should be washed thoroughly with soap andwater. Monitor your symptoms Please contact the [facility] as soon as possible. Persons who are placed under active monitoring or facilitated self-monitoring should follow instructions provided by their local health department or occupational health professionals, as appropriate. Seek immediate medical attention if your illness is worsening of if you develop any of the following: difficulty breathing, confusion, dizziness or passing out, vomiting, high fevers, weakness, or any other new or concerning symptoms. Before seeking care, call your health care provider and tell them that you have, or are being evaluated for COVID-19. Put on a facemask before you enter the facility. These steps will help keep other people in the office or waiting room from getting infected or exposed. If you have a medical emergency and need to call 911, notify the dispatch personnel that you have, or are being evaluated for COVID-19. If possible, put on a face mask before emergency medical services arrive. Visit: https://[facility].[place].gov For specific questions and answers about COVID-19, call the [facility] info line at 7-580 2-[facility] ( ) Discontinuing home isolation Patients with confirmed COVID-19 should remain under home isolation precautions until the risk of secondary transmission to others is thought to be low. The decision to discontinue home isolation precautions is made on a rubg-tk-gmae basis, in consultation with health care providers, and state and local health departments. Recommended precautions for household members, intimate partners, and caregivers If you are providing care for a person infected or suspected to be infected with COVID-19, please note the following instructions, which are also available at: https://www.cdc.gov/coronavirus/2019-ncov/hcp/ievcgilp-tozzthj-zczcwk.html How do I take care of someone who is quarantined in my home? Household members, intimate partners, and caregivers in a non-health care setting may have close contact (within 6 feet) with a person with symptomatic, laboratory-confirmed COVID-19 or a person under investigation. Those in close contact should monitor their health and should call their health care provider right away if they develop symptoms suggestive of COVID-19 (such as fever, cough, shortness of breath). Those in close contact should also follow these recommendations: Make sure that you understand and can help the patient follow their health care provider's instructions for medication(s) and care. You should help the patient with basic needs in the home and provide support for getting groceries, prescriptions and other personal needs Monitor the patient's symptoms. If the patient is getting sicker, call his or her health care provider and tell them that the patient has laboratory-confirmed or is under investigation for COVID-19. This will help the health care provider's office take steps to keep other people in the office or waiting room from getting infected. Ask the health care provider to call the local or [facility] health department for additional guidance. If the patient has a medical emergency and you need to call 911, notify the dispatch personnel that the patient has, or is being evaluated for COVID-19 Household members should stay in another room or be from the patient as much as possible.Household members should use a separate bedroom and bathroom, if available Prohibit visitors who do not have an essential need to be in the home Household members should care for any pets in the home. Do not handle pets or other animals while sick Make sure that shared spaces in the home have good airflow, such as by an air conditioner or an opened window, weather permitting Perform hand hygiene frequently. Wash your hands often with soap and water for at least 20 seconds or use an alcohol-based hand glass driller that contains 60 to 95% alcohol, covering all surfaces of your hands and rubbing them together until they feel dry. Soap and water should be used preferentially if hands are visibly dirty Avoid touching your eyes, nose, and mouth with unwashed hands You and the patient should wear a facemask if you are in the same room Wear a disposable facemask and gloves when you touch or have contact with the patient's blood, stool, or body fluids, such as saliva, sputum, nasal mucus, vomit or urine. Do not reuse disposable facemasks and gloves. Throw them away after using them. When removing personal protective equipment, first remove and dispose of gloves. Then, immediately clean your hands with soap and water or alcohol-based hand glass driller. Next, remove and dispose of facemask, and immediately clean your hands again with soap and water or alcohol-based hand glass driller Avoid sharing household items with the patient. You should not share dishes, drinking glasses, cups, eating utensils, towels, bedding or other items. After the patient uses these items, you should wash them thoroughly (see below) Clean all high-touch surfaces, such as counters, tabletops, doorknobs, bathroom fixtures, toilets, phones, keyboards, tablets and bedside tables, every day. Also, clean any surfaces that may have blood, stool, or body fluids on them Use a household cleaning spray or wipe, according to the label instructions. Labels contain instructions for safe and effective use of the cleaning product including precautions you should take when applying the product, such as wearing gloves and making sure you have good ventilation during the use of the product Wash laundry thoroughly Immediately remove and wash clothes or bedding that have blood, stool, or body fluids on them Wear disposable gloves while handling soiled items and keep soiled items away from your body. Cleanyour hands (with soap and water or an alcohol-based hand glass driller) immediately after removing and throwing away your gloves Read and follow directions on labels for laundry or clothing items and detergent. In general, usinga normal laundry detergent according to washing machine instructions and dry thoroughly using the warmest temperatures recommended on the clothing label Place all used disposable gloves, facemasks, and other contaminated items in a lined container before disposing of them with other household waste. Clean your hands (with soap and water or an alcohol-based hand glass driller) immediately after handling these items. Soap and water should be used preferentially if hands are visibly dirty Discuss any additional questions with your state or local health department or health care provider What if I live with someone who's been told to self-quarantine? If the person you live with is NOT exhibiting respiratory symptoms, you can go about your day-to-day business, and you do not need to be tested or monitored. If the person you live with has respiratory symptoms (such as coughing or sneezing), but has not yet tested positive for COVID-19: Please make sure to stay home Monitor your symptoms closely, and seek medical attention if your symptoms are worsening Avoid public areas and public transportation Wear a facemask if you are sick Cover your coughs and sneezes with a tissue, dispose of the tissue and immediately wash your hands Wash your hands often for at least 20 seconds, and if soap and water are not available, use hand glass driller Avoid touching your eyes, nose or mouth Avoid sharing personal household items Clean 'high-touch' surfaces daily If the person you live with has tested positive for COVID-19, you will be considered a close contact, and will also likely be asked to self-quarantine. * Attachments The following attachments cannot be sent through Care Everywhere. * Palpitations (Djiboutian) documented in this encounter* Instructions* Mckenna Recinos MD - 03/04/2019 Return if severe pain or severe vaginal bleeding that soaks more than a pad an hour. Follow up closely with your OB physician early next week. Tylenol if any pain. documented in this encounter Assessments Diagnosis Palpitations Pneumonia due to organism Pneumonia due to other specified organism Diagnosis Dizziness- Primary Dizziness and giddiness Pelvic pain Diagnosis Early stage of - Primary Chief Complaint and Reason for Visit Chief Complaint Establish Patient Chief Complaint Cystoscopy,Possible Bladder Biopsy with Fulguratio Chief Complaint Admit Date chest pain January 05, 2025 2: 13pm Chief Complaint Admit Date chest pain January 05, 2025 2: 13pm PRE OP January 11, 2025 2: 01pm Additional Source Comments INFORMATION SOURCE (unrecogn ized section and content) DATE CREATED AUTHOR 11/12/2017 [facility] DATE CREATED AUTHOR AUTHOR'S ORGANIZ ATION 02/25/2019 [facility] DATE CREATED AUTHOR AUTHOR'S ORGANIZ ATION 04/22/2019 [facility] DATE CREATED AUTHOR AUTHOR'S ORGANIZ ATION 08/16/2019 [facility] DATE CREATED AUTHOR AUTHOR'S ORGANIZ ATION 10/07/2019 [facility] DATE CREATED AUTHOR AUTHOR'S ORGANIZ ATION 08/13/2020 [facility] DATE CREATED AUTHOR AUTHOR'S ORGANIZ ATION 10/24/2020 [facility] DATE CREATED AUTHOR AUTHOR'S ORGANIZ ATION 01/29/2021 [facility] DATE CREATED AUTHOR AUTHOR'S ORGANIZ ATION 06/26/2021 [facility] [place] DATE CREATED AUTHOR AUTHOR'S ORGANIZ ATION 06/17/2022 [facility] ([place] DATE CREATED AUTHOR AUTHOR'S ORGANIZ ATION 08/21/2022 [facility] DATE CREATED AUTHOR AUTHOR'S ORGANIZ ATION 08/29/2022 [facility] DATE CREATED AUTHOR AUTHOR'S ORGANIZ ATION 09/11/2022 [facility] DATE CREATED AUTHOR AUTHOR'S ORGANIZ ATION 02/22/2023 [facility] DATE CREATED AUTHOR AUTHOR'S ORGANIZ ATION 06/03/2023 [facility] ([place]) DATE CREATED AUTHOR AUTHOR'S ORGANIZ ATION 02/13/2024 [facility] DATE CREATED AUTHOR AUTHOR'S ORGANIZ ATION 09/05/2024 [facility] DATE CREATED AUTHOR AUTHOR'S ORGANIZ ATION 12/29/2024 [facility] DATE CREATED AUTHOR AUTHOR'S ORGANIZ ATION 01/02/2025 [facility] DATE CREATED AUTHOR AUTHOR'S ORGANIZ ATION 01/11/2025 [facility] Reason for Visit (unrecogniz ed section and content) Reason Comments Palpitations Reason Comments Dizziness Reason Comments Abdominal Pain 5 weeks Reason Comments Rupture of Membranes Reason Comments Fall friday night 11/10/20 on butt now having back pain Reason Comments Abdominal Pain Reason Comments Vaginal Bleeding X 2 weeks. Approx 8 weeks . Reason Comments Vaginal Bleeding 12 weeks , h x subchronic hematoma and prolapsed uterus Abdominal Cramping Reason Comments Abdominal Cramping 14 weeks , cosmo rodrigez is concerned for premature labor Reason Comments Problem Reason Comments Fall Pt. States she is 25 weeks and fell down 6 stairs this morning at 0600. Denies LOC but endorses head injury and presents with bruising to the forehead. Pt. Endorses vaginal spotting and pelvic pain since the injury occurred. Denies pain upon palpation of cervical spine/shoulders. Reason Comments Contractions Vaginal pain Reason Onset Date Comments Appointment Request 01/30/2023 Reason Comments bleeding for 2 months no appetite Started about 2 week s ago nauseated Started about 2 week s ago Fatigue Source Comments (unrecognize d section and content) In the event this informatio n is protected by the Federal Confidentiality of Alcohol and Drug Abuse Patient Records regulations: The Federal rules restrict any use of the information to criminally investigate or prosecute any alcohol or drug abuse patient.[place] the event this information is protected by the Federal Confidentiality of Alcohol and Drug Abuse Patient Records regulations: The Federal rules restrict any use of the information to criminally investigate or prosecute any alcohol or drug abuse patient.[place] the event this information is protected by the Federal Confidentiality of Alcohol and Drug Abuse Patient Records regulations: The Federal rules restrict any use of the information to criminally investigate or prosecute any alcohol or drug abuse patient.[place] the event this information is protected by the Federal Confidentiality of Alcohol and Drug Abuse Patient Records regulations: The Federal rules restrict any use of the information to criminally investigate or prosecute any alcohol or drug abuse patient.[place] the event this information is protected by the Federal Confidentiality of Alcohol and Drug Abuse Patient Records regulations: The Federal rules restrict any use of the information to criminally investigate or prosecute any alcohol or drug abuse patient.[place] the event this information is protected by the Federal Confidentiality of Alcohol and Drug Abuse Patient Records regulations: The Federal rules restrict any use of the information to criminally investigate or prosecute any alcohol or drug abuse patient.[place]In the event this information is protected by the Federal Confidentiality of Alcohol and Drug Abuse Patient Records regulations: The Federal rules restrict any use of the information to criminally investigate or prosecute any alcohol or drug abuse patient.[place]In the event this information is protected by the Federal Confidentiality of Alcohol and Drug Abuse Patient Records regulations: The Federal rules restrict any use of the information to criminally investigate or prosecute any alcohol or drug abuse patient.[place] Ordered Prescriptions (unrec ognized section and content) Prescription Sig Dispensed Refills Start Date End Da te terconazole (TERAZOL 7) 0.4 % vaginal cream Place vaginally nightly. 1 Tube 0 11/04/2020 11/11/2020 Prescription Sig Dispensed Refills Start Date End Da te bisacodyl (BISAC-EVAC) [address] 1 suppository rectally as needed for Constipation 10 suppository 0 12/25/2020 01/24/2021 Prescription Sig Dispensed Refills Start Date End Da te cephALEXin (KEFLEX) 500 MG capsule Take 1 capsule by mouth 4 times daily for 7 days 28 capsule 0 06/28/2022 07/05/2022 Care Team (unrecognized sect ion and content) Care Team Personnel Name: PHYSICIAN, NONE Position: Physician Member Role: Primary Care Physician Care Team Related Persons Name: LAKE LARKIN Address: Home [address] [place] [id number] Address: Temporary [address] [place] [address], [facility] Name: TIFFANY LARKIN Address: [address] [phone] Name: KENTON LARKIN Address: Home [address] [place] [phone] Address: [address] [phone] Care Teams (unrecognized sec tion and content) Team Status: Active Member Role Status Dates Perry Perea DO Primary Care Provider Active Team Status: Inactive Member Role Status Dates Perry Perea DO Attending Provider, Referring Provi chris Active Team Status: Inactive Member Role Status Dates Perry Perea DO Primary Care Provider, Attending Pr ovidmarcello Active Glass Driller Relationship Specialty Start Date End Date Perry Perea Jr., MD PCP - General Family Medicine 06/28/22 Glass Driller Relationship Specialty Start Date End Date Perry Perea Jr., MD PCP - General Family Medicine 06/28/22 Glass Driller Relationship Specialty Start Date End Date Perry Perea Jr., MD PCP - General Family Medicine 06/28/22 Glass Driller Relationship Specialty Start Date End Date Dior Crook [address] [place], [place] [phone] PCP - General 10/28/22 Glass Driller Relationship Specialty Start Date End Date [facility] [address] [place] [address] PCP - General 10/28/22 Glass Driller Relationship Specialty Start Date End Date [facility] [address] [place] [address] PCP - General 10/28/22 Team Status: Active Member Role Status Dates No Primary Care Physician Family Provider Active Dr. Abdirahman Olivera DO Primary Care Provider Active Team Status: Inactive Member Role Status Dates Dr. Antoinette Pettit MD Attending Provider, Referring Franklin calvin Active Dr. Abdirahman Olivera DO Primary Care Provider Active Glass Driller Relationship Specialty Start Date End Date Abdirahman Olivera DO [address] [place] [address] PCP [facility] Medicine 01/18/24 Glass Driller Relationship Specialty Start Date End Date Abdirahman Olivera DO [address] [place] [address] PCP - [facility] 01/18/24 Team Status: Active Member Role/Relationship Status Dates Dr. Abdirahman Olivera DO Primary Care Provider Active Team Status: Inactive Member Role/Relationship Status Dates Dr. Abdirahman Olivera DO Primary Care Provider Active Start: November 16, 2024 Dr. Antoinette Pettit MD Attending Provider Active Start: November 16, 2024 Team Status: Inactive Member Role/Relationship Status Dates Dr. Abdirahman Oilvera DO Primary Care Provider Active Start: January 05, 2025 End: January 05, 2025 Dr. Gianni Bland DO Emergency Provider Active S tart: January 05, 2025 End: January 05, 2025 Team Status: Inactive Member Role/Relationship Status Dates Dr. Abdirahman Olivera DO Primary Care Provider Active Start: January 05, 2025 End: January 05, 2025 Dr. Gianni Bland DO Attending Provider Active S tart: January 05, 2025 End: January 05, 2025 Dr. Gianni Bland DO Emergency Provider Active S tart: January 05, 2025 End: January 05, 2025 Team Status: Inactive Member Role/Relationship Status Dates Dr. Abdirahman Olivera DO Primary Care Provider Active Start: January 11, 2025 End: January 11, 2025 Dr. Abdirahman Olivera DO Referring Provider Active Start: January 11, 2025 End: January 11, 2025 Dr. Antoinette Pettit MD Attending Provider Active Start: January 11, 2025 End: January 11, 2025 Goals (unrecognized section and content) Goals may be documented in a n alternate section Scheduled Active and Recently Administ ered Medications (unrecognized section and content) Medication Order 06/26/2022 06/27/2022 06/28/2022 0.9 % sodium chloride bolus 1,000 mL (13.6 mL/kg), IntraVENous, at 1,000 mL/hr, Administer over 1 Hours, ONCE, On Fri06/28/22 at 1930, For 1 dose, May administer over 30 minutes if well tolerated. 1939 (Not Given - Pr ovider: Margaret Cunha RN - Reason: Patient/family refused) acetaminophen (TYLENOL) tablet 1,000 mg (COMPLETED) 1,000 mg, Oral, ONCE, 1 dose, On Fri06/28/22 at 1930, Maximum dose of acetaminophen is 4000 mg from all sources in 24 hours. 1942 (Given - Provid er: Margaret Cunha RN) cephALEXin (KEFLEX) capsule 500 mg (COMPLETED) 500 mg, Oral, ONCE, 1 dose, On Fri06/28/22 at 2045, Antimicrobial Indications: Urinary Tract Infection 2045 (Given - Provid er: Margaret Cunha RN) Scheduled Medication Order 08/10/2022 08/11/2022 08/12/2022 acetaminophen (TYLENOL) tablet 650 mg (COMPLETED) 650 mg, Oral, ONCE, 1 dose, On 08/12/22 at 1915, Maximum dose of acetaminophen is 4000 mg from all sources in 24 hours. 1932 (Given - Provid er: Ramirez Fermin RN) Scheduled Medication Order 01/28/2023 01/29/2023 01/30/2023 acetaminophen (Tylenol) tablet 1,000 mg 1,000 mg, Oral, Once, On Itzel 01/30/23 at 0115, For 1 dose, Maximum dose of acetaminophen is 4000 mg from all sources in 24 hours. 0115 (Not Given - Pr ovider: Britta Maurice RN - Reason: Patient/family refused) Lidocaine 4 % patch 1 patch 1 patch, TransDERmal, Administer over 12 Hours, Daily, First dose on Itzel 01/30/23 at 0900, Apply patch to affected area. Patch may remain in place for up to 12 hours in any 24 hour period. 0138 (Not Given - Pr ovider: Britta Maurice RN - Reason: Patient/family refused) FOR RECORDS PERTAINING TO PATIENTS WHO ARE OR HAVE BEEN ENROLLED IN A CHEMICAL DEPENDENCY/SUBSTANCEABUSE PROGRAM, SOME INFORMATION MAY BE OMITTED. This clinical summary was aggregated from multiple sources. Caution should be exercised in using it in the provision of clinical care. This summary normalizes information from multiple sources, and as a consequence, information in this document may materially change the coding, format and clinical context of patient data. In addition, data may be omitted in some cases. CLINICAL DECISIONS SHOULD BE BASED ON THE PRIMARY CLINICAL RECORDS. [facility] [employer] [facility]. provides no warranty or guarantee of the accuracy or completeness of information in this document.
[2025-01-13 06:37] LABS: Internal QC Validated? YES +Cl - CLEAR BKGD; Pregnancy, Urine Negative Negative; Record Kit Lot#,Urine Preg 0000962302
[2025-01-13] MEDS: Lactated Ringers 1,000 ML 15 ML IV ×2 (06:38→09:05)
--- NOTE | 2025-01-13 07:17 | PRE.ANES_ITS ---
ASA Classification* ASA Classification ASA Classification: 2 Assessment & Plan Anesthesia* Anesthesia Assessment Anesthesia Assessment: Discussed sedation and/or anesthesia options, risks, benefits, and alternatives with patient/parents/legal guardian/POA. Questions invited. The patient/parents/legal guardian/POA seems to understand and agrees to proceed with anesthesia plan. Reviewed the physical assessment, medical history, allergy history and patient home medications list prior to surgery/procedure/anesthetic and documented any changes. Performed airway and anesthesia risk assessments. 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 It is tight.) Neck Range of motion (ROM): Full ROM Labs Anesthesia Preop lab: CBC WBC 5.5 K/mm3 (4.4-11.0) 01/05/25 15:05 01/05/25 RBC 4.16 M/mm3 (4.2-5.4) L 01/05/25 15:05 01/05/25 Hgb 11.9 g/dL (12.0-15.0) L 01/05/25 15:05 5 Hct 36.5 % (37-47) L 01/05/25 15:05 01/05/25 Plt Count 311 K/mm3 (150-450) 01/05/25 15:05 01/05/25 CHEMISTRY Potassium 3.7 mmol/L (3.3-5.1) 01/05/25 15:05 01/05/25 Sodium 138 mmol/L (133-145) 01/05/25 15:05 01/05/25 BUN 10 mg/dL (4-19) 01/05/25 15:05 01/05/25 Creatinine 0.67 mg/dL (0.70-1.20) L 01/05/25 15:05 Glucose 110 mg/dL (70-99) H 01/05/25 15:05 01/05/25 COAG Urine Test Negative Negative 01/13/25 06:20 01/13/25 Pre-Assessment Diagnosis/Proposed Procedure Planned Operative Procedure(s): AXONICS REMOVAL LEADS AND BATTERY Anesthesia History Anesthesia History - raise driller: Anesthesia History - raise driller Hx Hospitalization No 12/30/24 11:14 Any Problems With Anesthesia No 12/30/24 11:14 Cholinesterase deficiency No 12/30/24 11:14 You/Your Family Experience No 12/30/24 11:14 fever (hyperthermia) with Relationship Recent Exposure to Contagious No 01/13/25 06:30 Disease Does patient have nerve No 12/30/24 11:14 stimulator Patient instructed to have device shut off --Does patient have Pacemaker No 01/13/25 06:30 or ICD? When Was Last Pacemaker Check QUESTION #4 FULL TEXT: You/Your Family Experience fever (hyperthermia) with Anesthesia Last Oral Intake Last Oral intake: Last Oral Intake NPO since 23:00 01/13/25 06:30 Meds taken in AM with sips of No 01/13/25 06:30 water? Meds patient instructed to take am of surgery PONV PONV - raise driller: PONV - raise driller Female Yes 12/30/24 11:14 HX of Motion Sickness No 12/30/24 11:14 HX of N/V After Surgery No 12/30/24 11:14 Non-Smoker Yes 12/30/24 11:14 Duration of Surgery greater No 12/30/24 11:14 than 60 minutes Number of Risk Factors 2 12/30/24 11:14 PONV Score Moderate Risk 12/30/24 11:14 Height & Weight Height & Weight: Anesthesia: Height & Weight Height 5 ft 2.99 in 01/13/25 06:30 Weight: 69.4 kg 01/13/25 06:30 Body Mass Index (BMI) 27.1 01/13/25 06:30 Respiratory Assessment Respiratory Assessment - raise driller: Respiratory Tract Infection Hx - raise driller Hx Respiratory Tract Infection No 12/30/24 11:14 STOP Sleep Apnea STOP Sleep Apnea - raise driller: STOP Sleep Apnea - raise driller Hx Hypertension No 12/30/24 11:14 Hx Sleep Apnea No 12/30/24 11:14 CPAP BIPAP Do you snore loudly (louder No 12/30/24 11:14 than talking or can be heard Do you often feel tired/ Yes 12/30/24 11:14 fatigued/ sleepy during daytime? Has anyone observed you stop No 12/30/24 11:14 breathing during sleep? STOP Results Negative 12/30/24 11:14 QUESTION #5 FULL TEXT : Do you snore loudly (louder than talking or can be heard through closed doors)? Tobacco Use History Tobacco Use History - raise driller: Tobacco Use History - raise driller Tobacco Use Smoking Status Never smoker 01/05/25 15:13 Hx Tobacco Use No 12/30/24 11:14 Years Smoking Packs Smoked per Day Smoking Cessation Date was within the last 15 years Hx Smoking Cessation Date Hx Smoking Cessation Counseling Hematologic Medial History Hematologic Hx - raise driller: Hematologic Medical Hx - ict managers Hx of Blood Transfusion No 12/30/24 11:14 Hx of Transfusion in last 3 No 12/30/24 11:14 Months Date of Last Transfusion (if within last 3 months) Ever experience any problems No 12/30/24 11:14 with transfusion(s)? Specify any problems Hx of Preganancy in last 3 No 12/30/24 11:14 Months Nurse Filling Out Transfusion DSCHRIBER 12/30/24 11:14 & Questions: Date: 12/30/24 12/30/24 11:14 Time: 11:15 12/30/24 11:14 Patient unable to answer at this time (ie. confused, unrespo /Reproduction History /Reproductive History - raise driller: /Reproductive Hx- raise driller Hx Now No 12/30/24 11:14 Gestational Age (in weeks): EDC: Hx Hx Para Hx Section SAB No 01/05/25 14:14 Active Medications Active Medications: Current Medications Generic Name Dose Route Start Last Admin Trade Name Freq PRN Reason Stop Dose Admin Clindamycin Phosphate 900 mg in 50 mls @ 75 mls/hr 01/13/25 08:30 Cleocin IV 01/13/25 09:09 INTRAOP ONE Lactated Ringer's 1,000 mls @ 15 mls/hr 01/13/25 06:15 01/13/25 06:38 IV 15 mls/hr .Q48H SUNIL Administration PFSH Medical History Frequency of micturition Urgency of micturition Interstitial cystitis Wears glasses Depression Anxiety Anemia Restless legs Asthma Non-smoker Home Medications ?Medication ?Instructions ?Recorded ?Last Taken ?Type multivitamin (Daily Multi-Vitamin 1 tab PO DAILY 12/30 Unknown History tablet) Allergy/AdvReac Type Severity Reaction Status Date / Time Penicillins Allergy Severe Anaphylaxis Verified 01/11/25 14:20 vibegron (From Gemtesa) Allergy Mild red face Verified 01/11/25 14:38 vancomycin AdvReac Intermediate Itching Verified 01/11/25 14:20 Surgical History Hx of surgical procedure Hx of cystoscopy History of cystoscopy Hx of wisdom tooth extraction Hx laparoscopic cholecystectomy Hx of laparoscopy History of dilation and curettage History of Social History Smoking Status: Never smoker Review of Systems (Anesthesia) ROS Narrative System reviewed and no additional complaints, except as documented. Physical Exam Resp clear to auscultation bilaterally
--- NOTE | 2025-01-13 07:26 | PCM.HP.BLA ---
History and Physical Date of Admission: 01/13/25 OFFICE VISIT Date of Service: 01/11/25 MR#: [id number] Acct: [id number] Name: SELENE RAMIREZ Rep #: [id number] : 1995 Provider: Dr. 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 Accompanied by: kids Is patient in pain?: No Allergies Penicillins Allergy (Severe, Verified 01/11/25 14:20) Anaphylaxisvibegron (From Gemtesa) Allergy (Mild, Verified 01/11/25 14:38) red facevancomycin Adverse Reaction (Intermediate, Verified 01/11/25 14:20) Itching Medications ?Medication ?Instructions ?Recorded ?Confirmed ?Type multivitamin (Daily Multi-Vitamin 1 tab PO DAILY 12/30/24 01/11/25 History tablet) Nurse's Note: irregular menstruation was referred to OBGYN by the [facility] Medical History Frequency of micturition Urgency of micturition Interstitial cystitis Wears glasses Depression Anxiety Anemia Restless legs Asthma Non-smoker Surgical History Hx of surgical procedure Hx of cystoscopy History of cystoscopy Hx of wisdom tooth extraction Hx laparoscopic cholecystectomy Hx of laparoscopy History of dilation and curettage History of Social History Smoking Status: Never smoker [facility] Urology Chief Complaint: preoperative visit with urine and consent Details: SELENE RAMIREZ, is a 29 F. The patient is here for preoperative history and physical prior to Axonics removal. Her Axonics unit is off. It was overstimulating her bladder. She is having issues with her menstrual cycle, low back pain. She feels these are also related to the Axonics. No hematuria. No urinary tract infections. She had a reaction to the Gemtesa, her face turned red. She would like to continue with other treatment options after surgery. The procedure, recovery and expectations were explained. The risks, benefits and alternatives were discussed, including but not limited to, the risks of anesthesia, bleeding, infection, injury, pain and the need for further intervention. We have discussed the risk of exposure to and/or potential harm posed by the COVID-19 virus with having a surgery/procedure at this time. A joint decision was made at this time to proceed with the scheduled surgery/procedure as indicated on the consent form. ROS Const Constitutional: No chills, fatigue, fever(s), headache(s), night sweats, weakness, weight change, abnormal sleep pattern or change in appetite Eyes Eyes: No change in vision ENT ENT: No headache(s) or dry mouth Resp Respiratory: No cough, chest congestion, shortness of breath or wheezing Cardio Cardiology: Positive for other (No chest pain.); No shortness of breath, irregular heart rhythm or lightheadedness Gastro GI: Positive for other (No nausea.); No abdominal pain, change in bowel habits, constipation, diarrhea or vomiting Musc Musculoskeletal: No abnormal gait Skin Skin: No yellowing of the eye, lesions, itchy eyes, rash or skin ulcer Neuro Neurology: No abnormal gait, confusion, dizziness, weakness, headache(s) or memory loss Psych Psychiatric: No abnormal sleep pattern, No change in appetite, No confusion and No memory loss Endo Endocrine: No fatigue, increased thirst/drinking or weight change Aller/Imm Allergy/Immunologic: No itchy eyes or wheezing Zeus/Lymp Hematologic/Lymphatic: No easy bleeding, easy bruising or enlarged lymph nodes Exam Const General: cooperative, healthy appearing, comfortable and no acute distress [facility] Head: normocephalic and atraumatic Ears: hearing grossly normal bilaterally and external ears normal Nose: external nose normal Eyes General: appearance normal, both eyes and all related structures Neck Neck: normal visual inspection and trachea midline Chest Chest palpation & inspection: normal inspection of the chest Resp Effort & Inspection: normal respiratory effort, able to speak in complete sentences and symmetric chest movement Cardio Rate: regular rate GI Inspection: normal to inspection Palpation: soft and nontender General: No CVA tenderness Skin General: no rashes or lesions noted Neuro General: patient alert, patient awake, patient oriented x3 and CN's II-XI intact bilaterally Extrem General: normal to inspection Psych Appearance: grossly normal and well kempt Mental Status: mental status grossly normal Results POC UA Auto w/o Microscopy Office Urine Color ? Last Edit by Rizwana Maldonado on 01/11/25 14:21 Office Urine Clarity ? Last Edit by Rizwana Maldonado on 01/11/25 14:21 Office Urine Glucose Negative Last Edit by Rizwana Maldonado on 01/11/25 14:21 Office Urine Ketones Negative Last Edit by Rizwana Maldonado on 01/11/25 14:21 Office Urine Bilirubin Negative Last Edit by Rizwana Maldonado on 01/11/25 14:21 Office Urine Urobilinogen Negative Last Edit by Rizwana Maldonado on 01/11/25 14:21 Off Ur Spec [place] 1.010 Last Edit by Rizwana Maldonado on 01/11/25 14:21 Office Urine pH 6 Last Edit by Rizwana Maldonado on 01/11/25 14:21 Office Urine Protein Negative Last Edit by Rizwana Maldonado on 01/11/25 14:21 Office Urine Blood Moderate Last Edit by Rizwana Maldonado on 01/11/25 14:21 vaginal bleeding Rizwana Maldonado 01/11/25 14:21 Office Urine Blood Hemolyzed Negative Last Edit by Rizwana Maldonado on 01/11/25 14:21 Office Urine Nitrate Negative Last Edit by Rizwana Maldonado on 01/11/25 14:21 Off Ur Leukocytes Positive Last Edit by Rizwana Maldonado on 01/11/25 14:21 leuks 15 Coding Level of Care Code Off vis,est,level 4 Diagnoses Urgency of micturition R39.15 Frequency of micturition R35.0 Assessment and Plan Assessment and Plan (1) Urgency of micturition: Status: Acute (2) Frequency of micturition: Status: Acute Orders: Orders POC UA Auto w/o Microscopy Today R35.0 - Frequency of micturition Medications: Discontinued levofloxacin Discontinued Reason: Pt no longer taking 500 mg PO Q24H 5 days 5 tabs 0RF Plan proceed with intervention as scheduled no [place]a will continue to work on symptoms after surgery 01/11/252116 <Electronically signed by Antoinette Pettit MD> Date Antoinette Pettit MD
--- NOTE | 2025-01-13 07:30 | FORE_PTH ---
PATIENT: SELENE RAMIREZ LOC: [facility] [place] U#:[id number] AGE/SX: 29/F ROOM: RE01/13/[address]: Dr. Antoinette Pettit MD : 1995 BED: DIS: 01/13/2025 SPEC #: [id number] RECD: 01/13/25 08:56 STATUS: EDDIE REBenjamin #: [id number] YOVANA: 01/13/25 07:[address]: Antoinette Pettit DEPT: SURGICAL PATHOLOGY RECD BY: Poli Novak ENTERED: 01/13/25 10:32 SP TYPE: FOREIGN B OTHR DR: Dr. Tavo Olivera, Tissues: A - FOREIGN BODY Procedures: Surgery Specimen Level I HEADER OPERATION: Removal, axonics, leads and battery PRE-OP DIAGNOSIS: Removal of axonic battery and leads TISSUE SUBMITTED: A- Axonic battery and leads MICROSCOPIC DIAGNOSIS A. Axonix battery and leads, explant: - critical care cns confirmed (gross examination only). MICROSCOPIC DESCRIPTION Slides are reviewed. GROSS DESCRIPTION A. Received fresh labeled with the patient's name and date of . Designated as Axonic battery and leads-gross exam only is a 5.2 x 3.8 x 0.6 cm yellow to bonilla metallic portion of hardware inscribed with [employer], REF: [id number], SN: [id number]. Also received is a 28.1 cm length by 0.2 cm in diameter wire, devoid of inscriptions. No sections are submitted. The specimen is for gross examination only. [place] 01/13/2025 CPT:24137
[2025-01-13] MEDS: Lidocaine 1% /Epi 1:100 (20ml) 20 ML Vial (07:47)
[2025-01-13] MEDS: Lidocaine 1% (5 ml sdv) 5 ML Vial 10 ML IV (07:50)
[2025-01-13] MEDS: Midazolam 2 MG/2 ML Syringe IV (07:50)
[2025-01-13] MEDS: Lactated Ringers 500 ML IV (07:50)
--- NOTE | 2025-01-13 08:10 | PCM.OPRPT ---
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 Type of Anesthesia: MAC RN Documented Start/Stop Times: Operation Date: 01/13/25 07:30 Case Time Into Pre-Op 01/13/25 06:05 Out of Pre-Op 01/13/25 07:30 Anesthesia Start 01/13/25 07:36 Into Room 01/13/25 07:36 Procedure Start 01/13/25 07:47 Procedure End 01/13/25 08:00 Anesthesia End 01/13/25 08:07 Out of Room 01/13/25 08:07 Procedure Start Time: 07:47 Procedure Stop Time: 08:00 Select all DRAINS/GRAFTS/IMPLANTS that apply: None Estimated Blood Loss: 5cc Specimen collected: Yes Description of specimen(s) removed: Battery and lead Description of surgery: The patient is a 29-year-old female with urinary urgency and frequency with a previously implanted Axonics battery and lead that is nonfunctioning. It is causing her to have discomfort and it is relating to issues with her menstrual cycle. She would like to have it removed. Informed consent was obtained. The patient was taken to the operating room and placed in a prone position on the operating room table. She was appropriately padded and secured to the table. Anesthesia monitored the head, neck, airway, IV access and vital signs throughout the case. Once anesthesia was appropriately administered, she was prepped and draped in usual sterile fashion. The previous incisions overlying the battery and insertion site for the lead were infiltrated with local anesthetic. The incision over the battery was then opened with a knife and dissection continued down to the battery which was brought into the operative field without difficulty. The lead was grasped with a hemostat and the battery was removed from the field. With tension on the lead we confirmed the insertion site of the lead. An incision over the insertion site was then made. The lead was easily identified and grasped with a hemostat. It was then brought in through the incision into the operative field. With careful constant tension, the lead in its entirety was removed. Both incision sites for the pocket and lead insertion were irrigated with sterile water. Hemostasis was obtained with Bovie cautery. Each incision was closed in 2 layers first with 3-0 Vicryl interrupted suture, followed by 4-0 Monocryl subcuticular closure. Dermabond was then applied to the incisions and allowed to dry. The patient was then awakened and taken to the recovery room in good condition. There were no complications during this procedure. Surgical Findings: Lead was removed in its entirety Complications Complications: No Admit VTE Documentation VTE Present on Admission: Yes VTE Mechan Device Prophylaxis: SCD's VTE Pharm Prophylaxis ordered?: No Reason prophylaxis not ordered: Treatment Not Indicated
--- NOTE | 2025-01-13 08:12 | PCM.POST.ANE ---
Anesthesia: Postop Eval I Current Vital Signs Temperature: 97.6 F Pulse Rate: 61 Blood Pressure: 97/62 Respiratory Rate: 16 Pulse Ox: 97 Assessment Airway patent: Yes Spontaneous unlabored respirations: Yes Mental status: Awake nausea: No Vomiting: No Anesthesia Complication: No Fluid Hydration Crystalloid volume administer (ml): 500 Total IV fluid infused: 500 Progress Note Anesthesia document: Postop Eval 1 completed: Yes
--- NOTE | 2025-01-13 08:16 | EX.PCM.DISCH ---
Discharge Instructions Diet Discharge Diet: No restrictions Activity Discharge Activity: Return to Normal Activity (No strenuous activity for 2 weeks) and May Shower (On Friday morning) May resume sexual activity in: 2 weeks Dressing / Incision Call your doctor if your incision/area has: Continuous Slow Oozing, Sudden Increased Bleeding, Increased Pain/ Swelling, Increased Redness and Foul Smelling Discharge Call your doctor if you observe: Fever of 101 or Higher and Inability to urinate Change Dressing in: leave in place till F/U (Do not remove skin glue, allow it to fall off) Follow Up Care Please Follow Up With: Antoinette Pettit MD When: 2 to 3 weeks Test Results: Test results from this visit will be discussed in further detail at your follow-up appointment, if applicable. Discharge Plan Admission Attending Provider: Antoinette Pettit Primary Care Provider: Tavo Olivera Instructions Print Language: Italian Discharge Orders/Prescriptions Prescriptions: New oxycodone-acetaminophen 5-325 mg tablet 1 tab PO Q8H PRN (Reason: pain) 3 Days Qty: 10 0RF Continued multivitamin [Daily Multi-Vitamin] Tablet 1 tab PO DAILY Other Ambulatory Orders: ,Urine (Routine) Timeframe: 20250113 Facility: [facility] - Location: Laboratory Ordered By: Dr. Antoinette Pettit Referrals / Follow Up: Tavo Olivera DO [Primary Care Provider] - Disposition Disposition (needs filled in before D/C Order can be placed): Home, Self Care
--- NOTE | 2025-01-13 10:17 | SUR.PHASEII ---
patient had a long wait for their ride, vss. no issues.
== END 2025-01-13 10:18 | disposition home or self-care (01) ==
LOC: SDC 05:52 → AC 05:53
PROVIDERS: Anesthesiology; PCP Family Medicine; Referring Provider Urology; Visit Provider Urology
PROC: (CPT 64585; principal; 2025-01-13 07:20)
DX: Z45.42 Encounter for adjustment and management of neurostimulator (principal); R35.0 Frequency of micturition; R39.15 Urgency of urination
CPT/HCPCS: 64585; 64595; 00300; 81025; 88300; J2405